=== PATIENT | female | born 1935 | race Caucasian/White ===

== ENCOUNTER 2017-01-09 12:22 | Inpatient (IN) | payer OTHER ==
[2017-01-09 13:51] LABS: MCH 32.4 pg (25.7-33.7); MEAN CELL VOLUME 98.2 fl (80-96); MEAN PLT VOLUME 9.1 fl (7.5-11.1); PLATELET COUNT 338 K/MM3 (134-434); RDW 14.1 % (11.6-15.6); WHITE BLOOD COUNT 22.7 K/mm3 (4.0-10.0)
[2017-01-09 14:10] LABS: INR 3.11 (0.82-1.09)
[2017-01-09 14:16] LABS: ALBUMIN 2.8 g/dl (3.4-5.0); ANION GAP 13 (8-16); BILIRUBIN,TOTAL 0.6 mg/dL (0.2-1.0); CALCIUM 10.5 mg/dL (8.5-10.1); CO2 23 mmol/L (21-32); CREATININE 2.2 mg/dL (0.55-1.02); GLUCOSE,RANDOM 138 mg/dL (74-106); SGOT/AST 24 U/L (15-37); SGPT/ALT 18 U/L (12-78)
[2017-01-09 14:17] LABS: ALK PHOS 75 U/L (45-117); TOT PROT 6.7 g/dl (6.4-8.2)
[2017-01-09 14:26] LABS: PLATELET ESTIMATE ADEQUATE (NORMAL)
[2017-01-09] MEDS ORDERED: LEVOFLOXACIN 750 MG IVPB 150 ML IVPB ONE ×4 (14:41→23:18)
[2017-01-09] MEDS ORDERED: METRONIDAZOLE 500 MG PREMIXED 100 ML IVPB ONE ×2 (14:41→14:49)
[2017-01-09] MEDS ORDERED: ACETAMINOPHEN 1000 MG/100 ML VIAL (NON FORMULARY) IVPB ONE (14:45)
[2017-01-09] MEDS ORDERED: SODIUM CHLORIDE 1,000 ML IV STA ×2 (14:45→15:48)
[2017-01-09] MEDS ORDERED: ACETAMINOPHEN INJECTION 100 ML IVPB ONE (14:49)
--- NOTE | 2017-01-09 15:29 | PDOC ---
History of Present Illness - General Chief Complaint: Pain, Acute Stated Complaint: PAIN Time Seen by Provider: 01/09/17 12:50 History Source: Patient Exam Limitations: No Limitations - History of Present Illness Travel History: No Initial Comments: 01/09/17 15:51 81-year-old female presents to the ED with sudden onset but gradually worsening generalized abdominal pressure and cramping associated with generalized fatigue with decreased urine output this morning and soft stool this morning. Patient denies chills, headache, dizziness, chest pain, shortness of breath, abdominal distention, rash, or lower extremity edema. patient states is followed by Dr. callaway GI specialist for history of diverticulosis Timing/Duration: reports: getting worse Quality: reports: moderate, cramping Abdominal Pain Onset Location: reports: generalized abdomen Pain Radiation: reports: no radiation Aggravating Factors: improves with: None Alleviating Factors: improves with: None Past History - Travel Traveled outside of the country in the last 30 days: No Close contact w/someone who was outside of country & ill: No - Past Medical History Allergies/Adverse Reactions: Allergies Allergy/AdvReac Type Severity Reaction Status Date / Time No Known Allergies Allergy Verified 01/09/17 12:33 Home Medications: Ambulatory Orders Atorvastatin Ca [Lipitor] 40 mg PO HS 01/09/17 Docusate Sodium [Colace -] 100 mg PO DAILY 01/09/17 Losartan Potassium [Cozaar] 50 mg PO DAILY 01/09/17 Metoprolol Succinate [Toprol Xl -] 50 mg PO DAILY 01/09/17 Oxycodone HCl/Acetaminophen [Percocet 5-325 mg Tablet] 1 tab PO Q6H 01/09/17 Risedronate Sodium [Actonel] 35 mg PO WEEKLY 01/09/17 Warfarin Sodium 3 mg PO HS 01/09/17 HTN: Yes Hypercholesterolemia: Yes Other medical history: PE - Surgical History Abdominal Surgery: Yes (HIATAL HERNIA) Cardiac Surgery: Yes (FILTER PLACEMENT) Cholecystectomy: Yes - Psycho/Social/Smoking Cessation Hx Suicidal Ideation: No Smoking History: Former smoker Have you smoked in the past 12 months: No Information on smoking cessation initiated: No Patient Lives Alone: No Abd/GI Specific PMHX - Complaint Specific PMHX Diverticulitis: No Review of Systems - Review of Systems Able to Perform ROS?: Yes Constitutional: No: Symptoms Reported HEENTM: No: Symptoms Reported Respiratory: No: Symptoms reported Cardiac (ROS): No: Symptoms Reported ABD/GI: Yes: Abdominal cramping : No: Symptoms Reported Musculoskeletal: No: Symptoms Reported Integumentary: No: Symptoms Reported Neurological: No: Symptoms reported Hematologic/Lymphatic: No: Symptoms Reported *Physical Exam - Vital Signs Last Vital Signs Temp Pulse Resp BP Pulse Ox 100.3 F H 108 H 19 138/68 92 L 01/09/17 14:05 01/09/17 12:33 01/09/17 12:33 01/09/17 12:33 01/09/17 12:33 - Physical Exam General Appearance: Yes: Nourished, Appropriately Dressed. No: Apparent Distress HEENT: positive: EOMI, JAYSON. negative: Pale Conjunctivae Neck: positive: Supple Respiratory/Chest: positive: Lungs Clear, Normal Breath Sounds. negative: Respiratory Distress, Accessory Muscle Use Cardiovascular: positive: Regular Rhythm, Tachycardia. negative: Murmur Gastrointestinal/Abdominal: positive: Decreased BS (no bowel sounds auscultated. Except for right lower quad which were diminished), Distended, Guarding, Tenderness (generalized) Musculoskeletal: negative: CVA Tenderness Extremity: positive: Normal Capillary Refill. negative: Pedal Edema Integumentary: positive: Normal Color, Warm, Moist Neurologic: positive: Normal Mood/Affect, Motor Strength 5/5 Heart Score/ECG Review - ECG Intrepretation Rhythm: Regular Rhythm (tachycardia at 104 with PVC) ED Treatment Course - LABORATORY CBC & Chemistry Diagram: 01/13/17 05:50 01/13/17 05:50 - ADDITIONAL ORDERS Additional order review: Laboratory Results 01/09/17 01/09/17 01/09/17 13:28 13:28 13:28 INR 3.11 H Sodium 143 Potassium 4.6 Chloride 107 Carbon Dioxide 23 Anion Gap 13 BUN 30 H Creatinine 2.2 H Creat Clearance w eGFR 21.37 Random Glucose 138 H Lactic Acid 5.1 H* Calcium 10.5 H Total Bilirubin 0.6 AST 24 ALT 18 Alkaline Phosphatase 75 Total Protein 6.7 Albumin 2.8 L 01/09/17 13:28 RBC 4.98 MCV 98.2 H MCHC 33.0 RDW 14.1 MPV 9.1 Neutrophils % 91.0 H Lymphocytes % 3.0 L - RADIOLOGY Radiology Studies Ordered: Category Date Time Status ABDOMEN & PELVIS CT W/O CONTR [CT] Stat CT Scan 01/09/17 13:20 Ordered CHEST X-RAY PORTABLE* [RAD] Stat Radiology 01/09/17 13:20 Completed KUB (KID UR & BLAD) [RAD] Stat Radiology 01/09/17 13:20 Completed Medical Decision Making - Critical Care Time Total Critical Care Time (minutes): 120 Critical Care Statement: The care of this patient involved high complexity decision making to prevent further life threatening deterioration of the patient 's condition and/or to evalute & treat vital organ system(s) failure or risk of failure. - Medical Decision Making 01/09/17 13:06 Patient with generalized abdominal pain along with mild generalized weakness. Patient upon arrival was found to be hypoxic at 91-92% with clear breath sounds bilateral. Patient with generalized abdominal tenderness on exam with mild distention and absent bowel sounds. Patient concerning for obstruction versus perforation. Patient ordered for rectal temp labs, bedside KUB, portable chest x -ray, and preparation for by mouth contrast initiated. 01/09/17 15:09 Laboratory Tests 01/09/17 01/09/17 01/09/17 13:28 13:28 13:28 WBC 22.7 H Hgb 16.1 H Hct 48.9 H Plt Count 338 Neutrophils % 91.0 H Band Neutrophils 6.0 INR 3.11 H Sodium Potassium Chloride Carbon Dioxide Anion Gap BUN Creatinine Random Glucose Lactic Acid Calcium AST ALT Albumin Urine Protein Urine Ketones Urine Blood Urine Urobilinogen Ur Leukocyte Esterase Urine RBC Urine WBC Blood Type O POSITIVE 01/09/17 01/09/17 01/09/17 13:28 13:28 15:13 WBC Hgb Hct Plt Count Neutrophils % Band Neutrophils INR Sodium 143 Potassium 4.6 Chloride 107 Carbon Dioxide 23 Anion Gap 13 BUN 30 H Creatinine 2.2 H Random Glucose 138 H Lactic Acid 5.1 H* Calcium 10.5 H AST 24 ALT 18 Albumin 2.8 L Urine Protein 2+ H Urine Ketones Trace H Urine Blood 1+ H Urine Urobilinogen 2.0 H Ur Leukocyte Esterase Trace Urine RBC 17 Urine WBC 19 Blood Type Chest x-ray shows emphysema changes in the lungs with no signs of pneumonia or pneumothorax. There is no interstitial edema or pleural effusions noted. Bedside KUB shows no free air and no large air-fluid levels. Retained fecal material in the rectosigmoid colon noted. Patient ordered for IV fluids, IV Tylenol for rectal temperature of 100.3 and tachycardia at 113, Levaquin and Flagyl and will go to CT shortly. second lactic and blood culture ordered 01/09/17 17:[address] shows a 9 x 8 x 5 cm cavity seen within the lower abdominal/upper pelvis centrally containing air, a small amount of fluid and internal debris. There is possible and evocation of a 1.3 x 0.3 cm air-filled track between the mesenteric cavity in the middle third of the sigmoid colon. Development of soft tissue stranding is seen surrounding the middle third of the sigmoid colon which may be consistent of acute diverticulitis. There is also a 4.1 suprarenal aortic aneurysm noted. There is a 3.1 infrarenal aortic aneurysm. Call placed to Dr. Sawyer patient's primary care physician, gis programmer, and surgeon on-call Dr. Prado. Patient placed back on monitor in room 4. Will repeat vitals. Patient awaiting repeat lactic 01/09/17 17:36 Case discussed with surgeon Dr. Prado who will be consult shortly. Patient's repeat vital stable. Patient is otherwise comfortable while resting. Family at bedside. 01/09/17 18:25 Patient was seen by Dr. Prado will bring patient to the OR shortly. Patient was ordered for 2 units of FFP secondary INR 3.1. Family at bedside. Vital signs stable. Patient consented to surgery. 01/09/17 18:51 Repeat blood pressure 119/77. Heart rate 95. O2 sat 97% with 2 L. Patient awaiting FFP. 01/13/17 12:57 *DC/Admit/Observation/Transfer Diagnosis at time of Disposition: Perforated bowel, Diverticulitis, Severe sepsis - Discharge Dispostion Condition at time of disposition: Fair Admit: Yes - Referrals
[2017-01-09 15:39] LABS: URINE APPEARANCE SLCLOUDY; URINE BILIRUBIN NEGATIVE (NEGATIVE); URINE BLOOD 1+ (NEGATIVE); URINE COLOR AMBER; URINE GLUCOSE (UA) NEGATIVE (NEGATIVE); URINE KETONE TRACE (NEGATIVE); URINE LEUK ESTERASE TRACE (NEGATIVE); URINE NITRITE NEGATIVE (NEGATIVE)
[2017-01-09 15:42] LABS: URINE PROTEIN 2+ (NEGATIVE)
[2017-01-09 15:45] LABS: GRANULAR CASTS 3 /lpf; URINE HYALINE CAST 25 /lpf; URINE MUCUS RARE; URINE RBC 17 /hpf (0-3); URINE WBC 19 /hpf (3-5)
[2017-01-09] MEDS ORDERED: LEVOFLOXACIN 500 MG IVPB 100 ML IVPB ONE (16:36)
[2017-01-09] MEDS ORDERED: ETOMIDATE 20 MG/10 ML AMPUL IVPUSH ONE (19:16)
[2017-01-09] MEDS ORDERED: ROCURONIUM BROMIDE 50 MG/5 ML VIAL ONE ×3 (19:17→22:53)
[2017-01-09] MEDS ORDERED: ePHEDrine SULFATE 50 MG/1 ML AMPULE ONE (19:18)
[2017-01-09] MEDS ORDERED: DESFLURANE GAS 240 ML BOTTLE IH ONE (19:20)
[2017-01-09] MEDS ORDERED: MIDAZOLAM HCL 2 MG/2 ML SINGLE DOSE VIAL ONE ×2 (19:21)
[2017-01-09] MEDS ORDERED: NOREPINEPHRINE BITARTRATE 4 MG/4 ML ML IV ONE (19:21)
--- NOTE | 2017-01-09 20:18 | CONSULT ---
- Consultation REQUESTING PROVIDER: Mulu Bello BUSINESS INFORMATION CONSULTANT CONSULT REQUEST: We have been asked to surgically evaluate this patient for abdominal pain. PCP:Roula Sawyer HISTORY OF PRESENT ILLNESS: CTSP for evaluation and management if an acute surgical abdomen; this 81 y/o w/f/presented w/> 6 hours of sudden onset of diffuse generalized abdominal painabdominal pain; she came to the ER for evaluation; she has a h/o a splenectomy; cholecystectomy and AAA repair PMHx: DVT/PE PSHx: As above and femur fx. Home Medications Medication Instructions Recorded Atorvastatin Ca [Lipitor] 40 mg PO HS 01/09/17 Docusate Sodium [Colace -] 100 mg PO DAILY 01/09/17 Losartan Potassium [Cozaar] 50 mg PO DAILY 01/09/17 Metoprolol Succinate [Toprol Xl -] 50 mg PO DAILY 01/09/17 Oxycodone HCl/Acetaminophen 1 tab PO Q6H 01/09/17 [Percocet 5-325 mg Tablet] Risedronate Sodium [Actonel] 35 mg PO WEEKLY 01/09/17 Warfarin Sodium 3 mg PO HS 01/09/17 Allergies Allergy/AdvReac Type Severity Reaction Status Date / Time No Known Allergies Allergy Verified 01/09/17 12:33 PHYSICAL EXAM: GENERAL: Awake, alert, and fully oriented, in acute distress. HEAD: Normal with no signs of trauma. EYES: PERRL, sclera anicteric, conjunctiva clear. NECK: Normal ROM, supple without lymphadenopathy, JVD, or masses. ABDOMEN: Soft, diffusely tender,distended, absebt bowel sounds, positive guarding and rebound, no masses. No organomegaly. No hernias; healed midline scar MUSCULOSKELETAL: Normal ROM at all joints. No bony deformities or tenderness. No CVA tenderness. UPPER EXTREMITIES: 2+ pulses, warm, well-perfused. No cyanosis. Cap refill <2 seconds. No peripheral edema. LOWER EXTREMITIES: 2+ pulses, warm, well-perfused. No calf tenderness. No peripheral edema. NEUROLOGICAL: Normal speech, gait not observed. PSYCH: Cooperative. Good eye contact. Appropriate mood and affect. SKIN: Warm, dry, normal turgor, no rashes or lesions noted. Vital Signs Temperature 97.9 F 01/09/17 19:02 Pulse Rate 94 H 01/09/17 19:02 Respiratory Rate 22 01/09/17 19:02 Blood Pressure 99/67 01/09/17 19:02 O2 Sat by Pulse Oximetry (%) 98 01/09/17 19:02 Lab Results WBC 22.7 K/mm3 (4.0-10.0) H 01/09/17 13:28 RBC 4.98 M/mm3 (3.60-5.2) 01/09/17 13:28 Hgb 16.1 GM/dL (10.7-15.3) H 01/09/17 13:28 Hct 48.9 % (32.4-45.2) H 01/09/17 13:28 MCV 98.2 fl (80-96) H 01/09/17 13:28 MCHC 33.0 g/dl (32.0-36.0) 01/09/17 13:28 RDW 14.1 % (11.6-15.6) 01/09/17 13:28 Plt Count 338 K/MM3 (134-434) 01/09/17 13:28 Sodium 143 mmol/L (136-145) 01/09/17 13:28 Potassium 4.6 mmol/L (3.5-5.1) 01/09/17 13:28 Chloride 107 mmol/L (98-107) 01/09/17 13:28 Carbon Dioxide 23 mmol/L (21-32) 01/09/17 13:28 Anion Gap 13 (8-16) 01/09/17 13:28 BUN 30 mg/dL (7-18) H 01/09/17 13:28 Creatinine 2.2 mg/dL (0.55-1.02) H 01/09/17 13:28 Random Glucose 138 mg/dL (74-106) H 01/09/17 13:28 Calcium 10.5 mg/dL (8.5-10.1) H 01/09/17 13:28 Blood Type O POSITIVE 01/09/17 13:28 Antibody Screen Positive H 01/09/17 13:28 INR 3.11 (0.82-1.09) H 01/09/17 13:28 Imaging w/u reviewed IMP: acute surgical abdomen; likely perforated diverticulitis PLAN: Ex-lap possible Hartmans procedure and AOSDN; r/b/t d/w the patient and family; they wish to proceed; they understand she will possibly have an ostomy that will most likely be permanent and that she may remain intubated in the ICU ; in addition we discussed possible stroke/DVT/CA/wound and/or intra abdominal infection and . Taqueria Prado MD FACS Visit type - Case Type Case Type: ED Admission - Emergency Emergency Visit: Yes ED Registration Date: 01/09/17 Care time: The patient presented to the Emergency Department on the above date and was hospitalized for further evaluation of their emergent condition. - New patient This patient is new to me today: Yes Date on this admission: 01/09/17 - Critical Care Critical Care patient: No
[2017-01-09] MEDS ORDERED: ALBUMIN HUMAN 5% 250 ML IV SOLUTION IVPB ONE (20:22)
--- NOTE | 2017-01-09 23:11 | OP ---
Operative Note - Note: Operative Date: 01/09/17 Pre-Operative Diagnosis: Perforated sigmoid diverticulitis with abscess Operation: Exploratory laparotomy, sigmoid resection, extensive lysis of adhesions and mobilization of splenic flexure Post-Operative Diagnosis: Same as Pre-op Surgeon: Taqueria Prado Torch Solderer: Chris Verde Anesthesiologist/WAX BALL MOLDER: Sean Alcantar Anesthesia: General Specimens Removed: sigmoid colon Estimated Blood Loss (mls): 200 Drains & Tubes with Location: JAMES RLQ Drains, Volume Out (mls): 75 (Jennings (concentrated)) Fluid Volume Replaced (mls): 2,700 (2L Crystalloid & 700 Albumin) Operative Report Dictated: Yes
--- NOTE | 2017-01-09 23:12 | SURG ---
Surgery Director Of Veterans Affairs Note Director Of Veterans Affairs: Chris Verde PA-C Date of Service: 01/09/17 Diagnosis: Perforated sigmoid diverticulitis with abscess Procedure: Exploratory laparotomy, extensive lysis of adhesions, sigmoid resection, colostomy and splenic flexure mobilization I was present for the entirety of the operative procedure. For further detail, please refer to operative report. Visit type - Case Type Case Type: ED Admission - Emergency Emergency Visit: Yes ED Registration Date: 01/09/17 Care time: The patient presented to the Emergency Department on the above date and was hospitalized for further evaluation of their emergent condition. - New patient This patient is new to me today: Yes Date on this admission: 01/09/17
--- NOTE | 2017-01-09 23:40 | CONSULT ---
Consult Consult Specialty:: Pulm/CCM FABRIC WORKER LEADER Reason for Consultation:: Post-op repair of perforated bowel - History of Present Illness History of Present Illness: 81yow with PMHx HTN, diverticulosis, DVT/PE on coumadin, splenectomy who presents to the ED with sudden onset and gradually worsening abd pain, generalized fatigue and decreased urine output. She reported having guarding and rebound tenderness. CT A/P showed e/o a perforated bowel and diverticulitis. labs notable for WBC 22.7, Hgb10, INR 3.1, lactate 5.1, BUN/creat 30/2.2. She was taken to the OR this evening for exploratory lap, lysis of adhesions, sigmoid resection, colostomy and splenic flexure mobilization. She was brought to the ICU post sugery. In the OR she was orally intubated; EBL 400cc, she received 3U FFP, 750cc 5% albumin. She required no vasopressors during the case. She was left intubated post-op re note od feculent material in NGT. In ICU she was received orally intubated , paralyzed, BP 140's/70's, HR 100, Mid line abd incision c/d, JAMES to bulb with small amt bloody fluid and colostomy with pink and patent stoma. She was kept sedated with fentanyl and versed drips. Antibiotics continued. - History Source History Provided By: Medical Record Limitations to Obtaining History: Unresponsive - Smoking History Smoking history: Former smoker Have you smoked in the past 12 months: No Home Medications - Allergies Allergies/Adverse Reactions: Allergies Allergy/AdvReac Type Severity Reaction Status Date / Time No Known Allergies Allergy Verified 01/09/17 12:33 - Home Medications Home Medications: Ambulatory Orders Atorvastatin Ca [Lipitor] 40 mg PO HS 01/09/17 Docusate Sodium [Colace -] 100 mg PO DAILY 01/09/17 Losartan Potassium [Cozaar] 50 mg PO DAILY 01/09/17 Metoprolol Succinate [Toprol Xl -] 50 mg PO DAILY 01/09/17 Oxycodone HCl/Acetaminophen [Percocet 5-325 mg Tablet] 1 tab PO Q6H 01/09/17 Risedronate Sodium [Actonel] 35 mg PO WEEKLY 01/09/17 Warfarin Sodium 3 mg PO HS 01/09/17 Family Disease History - Family Disease History Family History: Unremarkable Review of Systems Unable to obtain ROS, reason: Intubated and sedated Physical Exam Vital Signs: Vital Signs Temperature 97.9 F 01/09/17 19:02 Pulse Rate 94 H 01/09/17 19:02 Respiratory Rate 22 01/09/17 19:02 Blood Pressure 99/67 01/09/17 19:02 O2 Sat by Pulse Oximetry (%) 98 01/09/17 19:02 Constitutional: Yes: Obese, Other (Sedated) Assessment/Plan 81yow with PMHx HTN, diverticulosis, DVT/PE on coumadin, splenectomy who presented to the ED with sudden onset and gradually worsening abd pain, generalized fatigue and decreased urine output. She was found to have a perforated bowel and is now s/p exploratory lap with sigmoid resection, colostomy and splenic lexure mobilization. She is currently intubated and with a high risk for bleeding re elevated INR on coumadin. Also with some JG in setting of sepsis. Pulm: Orally intubated for surgery; poss LLL consolidation on CXR -Lung protective vent settings -Aspiration precautions -Light sedation once off paralysis for comfort -SBT daily -Pain management -Fluid management after intra-op fluid shifts. -Antibiotics as below GI/ID: Perforated bowel c/f peritonitis -Post-op incision and JAMES management -Cont antibiotics for empiric coverage -Tailor to culture results -Monitor JAMES drainage -Monitor color of stoma and output of colostomy -NGT to LWS -NPO -[id number] CV: Sepsis in setting of perf bowel -HD monitoring -Fluid bolus as needed for MAP> 60 will likely third space -Vasopressor support as needed -Monitor lactate and troponin Heme: Hx DVT/PE on coumadin -Monitor coags and CBC -Transfuse for Hgb<7 -Vit K prn for INR>1.5; FFP if bleeding -Hold anticoag for now -Consult surgery for proper time to restart -venodynes Renal: JG in setting of sepsis ,perf bowel -monitor BMP and UOP -Fluid bolus as needed -Replete electrolytes Proph venodynes/H2b Eveline Fiore,ACNP-BC
[2017-01-09] MEDS ORDERED: MIDAZOLAM 100 MG in SODIUM CHLORIDE 100 ML IVPB SCH (23:45)
[2017-01-10 00:19] LABS: ARTERIAL BLD GAS O2 SATURATION 97.8 % (90-98.9); ARTERIAL BLOOD GAS BASE EXCESS -6.5 meq/l (-2-2); ARTERIAL BLOOD GAS HCO3 21.1 meq/L (22-26)
[2017-01-10 00:20] LABS: ART PUNCT SITE ARTERIAL LINE; LPM/O2% 50%; PT. ON O2? YES
[2017-01-10 00:21] LABS: MECH. VENT. YES; TYPE OF O2 MECH VENT; VENT RATE 10; VT/PRESS 500
[2017-01-10 00:22] LABS: ARTERIAL BLOOD GAS pH 7.22 (7.35-7.45)
[2017-01-10] MEDS: LACTATED RINGERS SOLUTION 1,000 ML IV SCH (00:27)
[2017-01-10] MEDS: FENTANYL INJECTION 500 MCG in DEXTROSE 5%-WATER - 90 ML IVPB SCH ×2 (00:27→10:03)
[2017-01-10 00:47] LABS: MCH 31.8 pg (25.7-33.7); MCHC 32.1 g/dl (32.0-36.0); MEAN CELL VOLUME 99.3 fl (80-96); MEAN PLT VOLUME 9.7 fl (7.5-11.1); PLATELET COUNT 267 K/MM3 (134-434); RDW 14.3 % (11.6-15.6); WHITE BLOOD COUNT 17.1 K/mm3 (4.0-10.0)
[2017-01-10 00:56] LABS: INR 2.73 (0.82-1.09); PROTHROMBIN TIME (PATIENT) 30.7 SEC (9.98-11.88)
[2017-01-10 00:58] LABS: ACTIVATED PTT 41.7 SECONDS (26.9-34.4)
[2017-01-10 01:05] LABS: ALBUMIN 2.9 g/dl (3.4-5.0); ANION GAP 9 (8-16); BILIRUBIN,TOTAL 1.1 mg/dL (0.2-1.0); CALCIUM 8.5 mg/dL (8.5-10.1); CO2 23 mmol/L (21-32); CREATININE 1.7 mg/dL (0.55-1.02); GLUCOSE,RANDOM 122 mg/dL (74-106); SGOT/AST 21 U/L (15-37); SGPT/ALT 16 U/L (12-78)
[2017-01-10 01:06] LABS: ALK PHOS 50 U/L (45-117); TOT PROT 5.4 g/dl (6.4-8.2)
[2017-01-10] MEDS: METRONIDAZOLE 500 MG PREMIXED 100 ML IVPB SCH ×3 (01:44→17:25)
[2017-01-10 03:26] LABS: TROPONIN I 0.08 ng/ml (0.00-0.05)
[2017-01-10] MEDS ORDERED: PHYTONADIONE 10 MG/1 ML AMP ONE (04:33)
[2017-01-10] MEDS ORDERED: PHYTONADIONE 10 MG/1 ML AMP IVPB ONE (04:35)
[2017-01-10 06:42] LABS: ANION GAP 8 (8-16); CALCIUM 8.4 mg/dL (8.5-10.1); CO2 23 mmol/L (21-32); CREATININE 1.7 mg/dL (0.55-1.02); GLUCOSE,RANDOM 108 mg/dL (74-106)
[2017-01-10 06:53] LABS: MCH 32.1 pg (25.7-33.7); MCHC 32.7 g/dl (32.0-36.0); MEAN PLT VOLUME 9.9 fl (7.5-11.1); PLATELET COUNT 253 K/MM3 (134-434); RDW 14.8 % (11.6-15.6); WHITE BLOOD COUNT 15.9 K/mm3 (4.0-10.0)
[2017-01-10 07:02] LABS: INR 2.56 (0.82-1.09); PROTHROMBIN TIME (PATIENT) 28.7 SEC (9.98-11.88)
--- NOTE | 2017-01-10 09:43 | PN ---
Progress Note (short form) - Note Progress Note: PULM/CRITICAL CARE FOLLOW UP: Pt seen and examined in the ICU 24 HOUR EVENTS: -Taken to OR for ex-lap, sigmoid resection with colostomy. Remained intubated post-op -No pressors, lactate clearing, afebrile Current Medications Hydromorphone HCl (Dilaudid Injection -) 0.5 mg IVPUSH Q4H PRN PRN Reason: MODERATE PAIN Hydromorphone HCl (Dilaudid Injection -) 1 mg IVPUSH Q4H PRN PRN Reason: SEVERE PAIN Metronidazole (Flagyl 500mg Premixed Ivpb -) 100 mls @ 100 mls/hr IVPB Q8H-IV DAVID Last Admin: 01/10/17 01:44 Dose: 100 mls/hr Levofloxacin (Levaquin 750 Mg Premixed Ivpb -) 150 mls @ 100 mls/hr IVPB DAILY ONE Stop: 01/10/17 00:47 Famotidine/Sodium Chloride (Pepcid 20 Mg Premixed Ivpb -) 50 mls @ 100 mls/hr IVPB BID DAVID Fentanyl 500 mcg/ Dextrose 100 mls @ 10 mls/hr IVPB TITR DAVID PRN Reason: 50 MCG/HR Stop: 01/10/17 23:44 Last Admin: 01/10/17 00:27 Dose: 10 mls/hr Lactated Ringer's (Lactated Ringers Solution) 1,000 mls @ 100 mls/hr IV ASDIR DAVID Last Admin: 01/10/17 00:27 Dose: 100 mls/hr Vital Signs Temp 98.6 F 01/10/17 02:00 Pulse 97 H 01/10/17 04:05 Resp 16 01/10/17 07:31 BP 113/65 01/10/17 04:05 Pulse Ox 100 01/10/17 01:00 Intake & Output 01/09/17 01/10/17 01/10/17 18:59 06:59 18:59 Intake Total 1000 3317 Output Total 3990 Balance 1000 -673 Weight 90.718 kg 99.9 kg Intake: IV 1000 2930 Normal Saline - 1,000 ml 700 @ 1000 mls/hr IV ASDIR STA Rx#:[id number] Versed - 100 mg In Normal 30 Saline - 100 ml @ 2 MG/ HR 2 mls/hr IVPB TITR DAVID Rx#:[id number] IVPB 100 Blood Product 287 Output: Drainage 165 Abdomen 165 Urine 425 Jennings 200 Estimated Blood Loss 400 Other 3000 Other: Voiding Method Indwelling Catheter Bowel Movement No Height 5 ft 7 in 5 ft 7 in Body Mass Index (BMI) 31.3 34.4 Weight Measurement Method Built in [facility] Weight Measurement Method Est/Stated by Patient EXAM: neuro: sedated, grimaces to pain, CONTRERAS HEENT: PERRL lungs: diminished bases, clear apices heart: irregular rhythm abd: soft, appropriately tender, midline incision intact, minimal serous drainage, midline JAMES with sero-sang drainage, ostomy pink, non-productive yet ext: LE cool, 1+ edema skin: warm, dry Assessment/Plan 81yow with PMHx HTN, diverticulosis, DVT/PE on coumadin, splenectomy who presented to the ED with sudden onset and gradually worsening abd pain, generalized fatigue and decreased urine output. She was found to have a perforated bowel and is now s/p exploratory lap with sigmoid resection, colostomy and splenic flexure mobilization. She is currently intubated and with a high risk for bleeding re elevated INR on coumadin. Also with some JG in setting of sepsis. Perforated bowel Peritonitis Sepsis s/p ex-lap with sigmoid resection, colostomy Post-op respiratory failure Resolving JG Lactic acidosis AF h/o DVT/PE -Lighten sedation, PSV trial, check ABG and extubate if all ok -Pain management -NPO and NGT to LWS -Surgery follow up -Abx per ID -Monitor for return of bowel function -Gentle hydration -Rate control -H2B for GI PPx -Start Heparin gtt when INR <2.0 if ok with surgery Monitor in ICU Critically Ill - CCT 45min Axel Haney Pulm/Critical Care TESTS SUPERINTENDENT [id number]
[2017-01-10] MEDS: FAMOTIDINE 20 MG/50 ML IVPB 50 ML IVPB SCH ×2 (10:04→22:51)
--- NOTE | 2017-01-10 10:28 | PN ---
Progress Note (short form) - Note Progress Note: POD #1 - s/p exploratory laparotomy/ Nathanael's under general anesthesia late last night. VSS. Pt. remains intubated and sedated. No apparent anesthetic complications noted. Continue current intensive care.
[2017-01-10 11:02] LABS: ART PUNCT SITE ARTERIAL LINE; ARTERIAL BLD GAS O2 SATURATION 98.8 % (90-98.9); ARTERIAL BLOOD GAS BASE EXCESS -1.6 meq/l (-2-2); ARTERIAL BLOOD GAS HCO3 21.6 meq/L (22-26); ARTERIAL BLOOD GAS pH 7.43 (7.35-7.45)
[2017-01-10 11:03] LABS: LPM/O2% 50%; MECH. VENT. ESPRIT; PT. ON O2? YES; TYPE OF O2 OT
--- NOTE | 2017-01-10 11:12 | PN ---
Progress Note (short form) - Note Progress Note: Attending Surgeon POD #1 Intubated/sedated on vent in ICU h/e being weaned; not on pressors VSS AF abdomen-ostomy viable; incision open; c/d/i; JAMES serosanguinous; o/w negative labs reviewed; lactate and WBC down UO 200 cc's post op cultures pending IMP: stable s/p ex-lap; Hartmans procedure for perforated sigmoid diverticulitis w/abscess formation. PLAN: increase IVF; ID consult for antibiotic coverage; continue present tx. Taqueria Prado MD FACS
--- NOTE | 2017-01-10 11:28 | PN ---
Progress Note, Physician Chief Complaint: On respirator History of Present Illness: S/P exploratory Lap for perforated colon Colostomy and Hartmans procedure done - Current Medication List Current Medications: Active Medications Hydromorphone HCl (Dilaudid Injection -) 0.5 mg IVPUSH Q4H PRN PRN Reason: MODERATE PAIN Hydromorphone HCl (Dilaudid Injection -) 1 mg IVPUSH Q4H PRN PRN Reason: SEVERE PAIN Metronidazole (Flagyl 500mg Premixed Ivpb -) 100 mls @ 100 mls/hr IVPB Q8H-IV DAVID Last Admin: 01/10/17 10:07 Dose: 100 mls/hr Levofloxacin (Levaquin 750 Mg Premixed Ivpb -) 150 mls @ 100 mls/hr IVPB DAILY ONE Stop: 01/10/17 00:47 Famotidine/Sodium Chloride (Pepcid 20 Mg Premixed Ivpb -) 50 mls @ 100 mls/hr IVPB BID DAVID Last Admin: 01/10/17 10:04 Dose: 100 mls/hr Fentanyl 500 mcg/ Dextrose 100 mls @ 10 mls/hr IVPB TITR DAVID PRN Reason: 50 MCG/HR Stop: 01/10/17 23:44 Last Admin: 01/10/17 10:03 Dose: 10 mls/hr Lactated Ringer's (Lactated Ringers Solution) 1,000 mls @ 100 mls/hr IV ASDIR DAVID Last Admin: 01/10/17 00:27 Dose: 100 mls/hr - Objective Vital Signs: Vital Signs Temperature 98.6 F 01/10/17 02:00 Pulse Rate 104 H 01/10/17 10:34 Respiratory Rate 23 01/10/17 10:34 Blood Pressure 113/65 01/10/17 04:05 O2 Sat by Pulse Oximetry (%) 96 01/10/17 10:34 Eyes: Yes: WNL HENT: Yes: WNL Neck: Yes: Supple Cardiovascular: Yes: Regular Rate and Rhythm Respiratory: Yes: Mechanically Ventilated Gastrointestinal: Yes: Hypoactive Bowel Sounds ...Rectal Exam: Yes: Deferred Genitourinary: Yes: Jennings Present Labs: CBC, BMP 01/10/17 05:20 01/10/17 05:20 INR, PTT INR 2.56 (0.82-1.09) H 01/10/17 05:20 Assessment/Plan Cardiology consult Dr Bhat
[2017-01-10] MEDS ORDERED: METOPROLOL TARTRATE 5 MG/5 ML VIAL IVPB PRN (15:01)
--- NOTE | 2017-01-10 15:57 | CONS ---
DATE OF CONSULTATION: 01/10/2017 REQUESTING PHYSICIAN: Roula Sawyer MD LOCATION: CCU. HISTORY: An 81-year-old white female who was brought to the hospital with acute abdominal pain and underwent abdominal surgery and a colostomy for ruptured diverticulitis. History was obtained from her daughter. She has a known case of hypertension, hypertensive cardiovascular disease, hypercholesterolemia, history of pulmonary thromboembolism approximately 20 years ago following abdominal surgery, history of abdominal aortic aneurysm status post resection back in the . According to her daughter, the patient last developed sudden onset of chills, clamminess after she had a bowel movement. There is no known history of chest pain or discomfort. There is history of exertional dyspnea climbing a flight of stairs. No paroxysmal or nocturnal dyspnea or orthopnea was reported. No history of palpitations, lightheadedness, dizziness, presyncope, or syncope. She has intermittent cough with expectoration. There is no history of hemoptysis. There is no history of diabetes mellitus. No known history of heart murmur or rheumatic fever. PAST HISTORY: 1. Hypercholesterolemia. 2. Hypertension. 3. Status post pulmonary thromboembolism. 4. History of fracture of the right femur. 5. History of cataracts. 6. History of chronic pain involving the right lower extremity. 7. Abdominal aortic aneurysm. PAST SURGICAL HISTORY: 1. Status post tonsillectomy. 2. Status post bilateral cataract extraction. 3. Status post splenectomy for hemolytic anemia. 4. Status post cholecystectomy. 5. 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 6. Status post surgery for hiatus hernia. 7. Status post repair of an abdominal aortic aneurysm in the . 8. Status post right femur fracture surgery. 9. IVC filter. SOCIAL HISTORY: She is . Has a son and a daughter. Her son has diabetes and apparently heart disease. She is a smoker since the age of 20. Used to smoke 1 pack of cigarettes a day. Currently smokes 1-2 cigarettes. Has an occasional drink. Currently has 2 cups of coffee. FAMILY HISTORY: Her father in his 50s of a myocardial infarction. Mother in her 70s related to ovarian cancer. She has no siblings. ALLERGIES: None reported. MEDICATIONS: Prior to admission: 1. Losartan 50 mg p.o. daily. 2. Metoprolol succinate 50 mg p.o. daily. 3. Atorvastatin 40 mg p.o. daily. 4. Warfarin 3 mg p.o. 5. Oxycodone 5/325 mg 1 tablet q.6 hours p.r.n. 6. Actonel 35 mg p.o. once a week. Current medications: 1. Levaquin 750 mg IV piggyback once daily. 2. Flagyl 500 mg IV q.8 hours. 3. Famotidine 20 mg IV b.i.d. 4. . 5. Dilaudid 0.5 mg IV q.4 hours p.r.n. and 1 mg IV push q.4 hours p.r.n. for severe pain. The patient had received norepinephrine, ephedrine in the emergency room, which has been discontinued. REVIEW OF SYSTEMS: Constitutional: History of chills, clamminess, and according to the daughter, there has been some unintentional weight loss. HEENT: No history of headaches, diplopia, or blurred vision. No history of epistaxis, hoarseness, tinnitus, or deafness reported. Cardiovascular: See history of present illness. History of sinus tachycardia. Respiratory: History of intermittent cough with expectoration. No history of hemoptysis or tuberculosis. Gastrointestinal: See history of present illness. Central Nervous System: No history of seizures, syncope, focal weakness. No history of dizziness. Musculoskeletal: History of chronic pain involving the right lower extremity. No history of myalgias. Endocrine: No history of polyuria or polydipsia. No history of intolerance to cold or warm weather. Genitourinary: No history of dysuria, frequency, or hematuria reported. PHYSICAL EXAMINATION: General: An 81-year-old female who was recently extubated who drowsy but arousable. There is slight pallor. No cyanosis, clubbing, or jaundice. Vital Signs: Blood pressure 115/82 mmHg, pulse 104 beats per minute and regular, temperature 99 degrees Fahrenheit, respirations 27 following extubation and currently 20 per minute. Neck: Supple. No jugular venous distention. Hepatojugular reflux is negative. Carotids are 2+. Upstrokes are normal. No bruits are appreciated, and no thyromegaly is felt. Heart: PMI is in the 5th intercostal space. Heart sounds are distant and obscured by breath sounds. No murmur or gallops are appreciated. Lungs: Coarse breath sounds bilaterally. Decreased at both bases. Chest: Normal AP diameter. Expansion grossly appears to be normal. Abdomen: Distended. There is diffuse tenderness. There is a colostomy and a midline surgical wound. Bowel sounds are absent. Extremities: No calf tenderness or dependent edema. Both feet are warm. Dorsalis pedis pulses and posterior tibial pulses are weak. LABORATORY DATA: CBC: WBC count 728, was 22,700 at 5:20 a.m., on January 10 was 15,900. Hemoglobin on January 10 was 11.6 g. Platelet count 253,000. Differential on January 09, 2017 neutrophils 91%, lymphocytes 3%, bands 6%. INR 2.56, on admission was 3.11. Basic metabolic panel January 10: Sodium 142, potassium 4.7, chloride 101, CO2 is 23 mmol/L. BUN 33, creatinine 1.7 mg/dL. Random glucose 108 mg/dL. Lactic acid on admission 5.1 and currently 2.6. CK 153. Troponin is elevated 0.08. X-ray chest on January 09, 2017. Impression: Emphysematous changes in the lungs with no sign of pneumonia or pneumothorax. No interstitial edema or pleural effusion. Abdominal CT results January 09. Impression: In comparison to previous CT study of January 31, 2016, interval development of 9-cm x 8-cm x 5-cm cavity seen within the mesentery of the lower abdomen/upper pelvis centrally. This finding may be on the basis of an abscess versus contained perforation. There is a possible small short fistulous tract extending to the mid sigmoid colon. Development of soft tissue stranding is seen within the lower pelvis consistent with edema. Extensive sigmoid diverticulosis is, again, noted. The remainder of the abdomen and pelvis demonstrates no obvious interval change. There is partial imaging of wedge-shaped focal opacity in the right middle lobe medially consistent with atelectasis and/or infiltrate. Additional evaluation utilizing a dedicated chest CT is suggested. ECG January 09, 2017. Sinus tachycardia with intra-atrial conduction abnormality, occasional unifocal single ventricular premature beats, left bundle branch block pattern, ST and T abnormalities. No previous ECGs available for comparison. IMPRESSION: 1. Sinus tachycardia. Etiology: A. Secondary to sepsis. B. Recent surgery. C. Hypovolemia. 2. Acute abdomen secondary to ruptured diverticulitis. 3. Sepsis. 4. Evaluated troponin. Etiology: A. Acute coronary syndrome needs to be excluded. B. Related to renal insufficiency. C. Sepsis. 5. Renal insufficiency. 6. History of hypertension, currently normotensive. 7. Ventricular premature beats. 8. Interventricular conduction delay. 9. History of pulmonary thromboembolism. 10. Suprarenal 4.1-cm aortic aneurysm (as noted in the CT report of the abdomen). 11. History of hemolytic anemia. 12. Status post splenectomy. RECOMMENDATIONS: 1. Serial EKGs and enzymes. 2. Would suggest addition of IV beta-blockers until the patient is able to take it orally. 3. Follow up CBC and basic metabolic profile. 4. Follow up x-ray chest as there was mention atelectasis involving the right middle lobe. 5. Follow up arterial blood gases. PROGNOSIS: Critical. TIME SPENT: One hour and 30 minutes. Tennille [id number]
[2017-01-10] MEDS ORDERED: METOPROLOL TARTRATE 5 MG/5 ML VIAL IVPB SCH (16:00)
[2017-01-10] MEDS: PIPERACILLIN/TAZOB 3.375 GM/50 ML PRE-DOCKED IVPB SCH ×2 (16:02→22:51)
[2017-01-10] MEDS: HYDROmorphone HCL CARPU-JECT 1 MG/1 ML DISP.SYRIN IVPUSH PRN ×2 (16:03→23:37)
--- NOTE | 2017-01-10 16:06 | HP ---
DATE OF ADMISSION: 01/09/2017 HISTORY OF PRESENT ILLNESS: This is an 81-year-old female who has atrial fibrillation, osteoarthritis, homebound for last many years. She came to the emergency room with complaints of abdominal pain. The patient was diagnosed with perforated viscous and was scheduled for surgery by Dr. Prado. Twenty years ago, the patient was admitted to [facility] ICU with septic shock and pulmonary embolism. Today, she is awake, alert and oriented, not in severe distress. She has abdominal pain. PHYSICAL EXAMINATION: VITALS: Blood pressure was 120/____ on admission. Currently, it is 100/67. Pulse is 94, temperature 97, respirations 20, O2 saturation is 98%. HEENT: Unremarkable. NECK: Supple. No JVD. LUNGS: Clear. HEART: S1, S2 normal. No S3, S4. ABDOMEN: Tenderness is present throughout. Minimal rebound tenderness is also present. EXTREMITIES: Legs without edema. NEUROLOGIC: Examination grossly normal. LABS: WBC 22, hemoglobin 16, platelets 338. Chemistries: Sodium 143, potassium 4.6, chloride 106, CO2 of 23, BUN 30, creatinine 2.2. Lactic acid is +3.8. Albumin is 2.8. INR is 3.1. STUDIES: On x-ray of the abdomen, no free air is noted. A chest x-ray is negative. PLAN: The case was discussed with Dr. Prado. He is going to take the patient to the OR. IV fresh frozen plasma. The patient is . We will follow. Tennille [id number]
[2017-01-10 17:19] LABS: TROPONIN I 1.49 ng/ml (0.00-0.05)
[2017-01-10] MEDS ORDERED: ALBUTEROL SO4 2.5/IPRATROPIUM 0.5 INH SOL 3 ML VIAL.NEB. NEB STA (18:25)
[2017-01-10] MEDS: METOPROLOL TARTRATE 5 MG/5 ML VIAL IVPB SCH (18:42)
[2017-01-10 21:01] LABS: TROPONIN I 1.65 ng/ml (0.00-0.05)
[2017-01-10] MEDS ORDERED: ALBUTEROL SO4 2.5/IPRATROPIUM 0.5 INH SOL 3 ML VIAL.NEB. NEB ONE (22:53)
[2017-01-11] MEDS: ALBUTEROL SO4 2.5/IPRATROPIUM 0.5 INH SOL 3 ML VIAL.NEB. NEB SCH ×4 (00:07→17:46)
[2017-01-11] MEDS: LACTATED RINGERS SOLUTION 1,000 ML IV SCH ×3 (01:48→17:40)
[2017-01-11] MEDS: METRONIDAZOLE 500 MG PREMIXED 100 ML IVPB SCH ×3 (01:48→17:40)
[2017-01-11] MEDS: METOPROLOL TARTRATE 5 MG/5 ML VIAL IVPB SCH ×3 (01:48→17:40)
[2017-01-11] MEDS: PIPERACILLIN/TAZOB 3.375 GM/50 ML PRE-DOCKED IVPB SCH ×4 (02:04→20:43)
[2017-01-11] MEDS: HYDROmorphone HCL CARPU-JECT 1 MG/1 ML DISP.SYRIN IVPUSH PRN ×3 (04:36→19:39)
[2017-01-11 06:16] LABS: MCH 31.9 pg (25.7-33.7); MCHC 32.5 g/dl (32.0-36.0); MEAN CELL VOLUME 98.2 fl (80-96); MEAN PLT VOLUME 9.8 fl (7.5-11.1); PLATELET COUNT 190 K/MM3 (134-434); RDW 14.7 % (11.6-15.6); WHITE BLOOD COUNT 17.2 K/mm3 (4.0-10.0)
[2017-01-11 06:47] LABS: INR 1.19 (0.82-1.09); PROTHROMBIN TIME (PATIENT) 13.1 SEC (9.98-11.88)
[2017-01-11 06:48] LABS: ALBUMIN 2.2 g/dl (3.4-5.0); ANION GAP 10 (8-16); BILIRUBIN,TOTAL 0.8 mg/dL (0.2-1.0); CALCIUM 7.9 mg/dL (8.5-10.1); CO2 23 mmol/L (21-32); CREATININE 2.2 mg/dL (0.55-1.02); GLUCOSE,RANDOM 117 mg/dL (74-106); SGOT/AST 36 U/L (15-37); SGPT/ALT 19 U/L (12-78); TOT PROT 4.9 g/dl (6.4-8.2)
[2017-01-11 07:02] LABS: ALK PHOS 55 U/L (45-117); CPK 205 IU/L (26-192)
[2017-01-11 07:27] LABS: TROPONIN I 1.49 ng/ml (0.00-0.05)
[2017-01-11 08:30] LABS: PLATELET ESTIMATE ADEQUATE (NORMAL)
[2017-01-11] MEDS: FAMOTIDINE 20 MG/50 ML IVPB 50 ML IVPB SCH ×2 (09:39→21:25)
--- NOTE | 2017-01-11 11:50 | PN ---
Progress Note, Physician Chief Complaint: Feels better History of Present Illness: S/P colostomy for ruptured colon Dr Gil cardiology consult appreciated Case discussed with Dr Baker - Current Medication List Current Medications: Active Medications Albuterol/Ipratropium (Duoneb -) 1 amp NEB QIDR DAVID Last Admin: 01/11/17 11:13 Dose: 1 amp Hydromorphone HCl (Dilaudid Injection -) 0.5 mg IVPUSH Q4H PRN PRN Reason: MODERATE PAIN Hydromorphone HCl (Dilaudid Injection -) 1 mg IVPUSH Q4H PRN PRN Reason: SEVERE PAIN Last Admin: 01/11/17 04:36 Dose: 1 mg Metronidazole (Flagyl 500mg Premixed Ivpb -) 100 mls @ 100 mls/hr IVPB Q8H-IV DAVID Last Admin: 01/11/17 09:39 Dose: 100 mls/hr Famotidine/Sodium Chloride (Pepcid 20 Mg Premixed Ivpb -) 50 mls @ 100 mls/hr IVPB BID DAVID Last Admin: 01/11/17 09:39 Dose: 100 mls/hr Lactated Ringer's (Lactated Ringers Solution) 1,000 mls @ 100 mls/hr IV ASDIR DAVID Last Admin: 01/11/17 10:36 Dose: 100 mls/hr Metoprolol Tartrate (Lopressor Injection -) 2.5 mg IVPB Q8H-IV DAVID Last Admin: 01/11/17 09:36 Dose: 2.5 mg Piperacillin Sod/Tazobactam Sod (Zosyn 3.375gm Ivpb (Pre-Docked)) 3.375 gm IVPB Q6H-IV DAVID Last Admin: 01/11/17 09:39 Dose: 3.375 gm - Objective Vital Signs: Vital Signs Temperature 100 F H 01/11/17 06:00 Pulse Rate 101 H 01/11/17 11:12 Respiratory Rate 20 01/11/17 09:00 Blood Pressure 113/44 01/11/17 09:36 O2 Sat by Pulse Oximetry (%) 96 01/11/17 11:12 Constitutional: Yes: Calm, Pallor HENT: Yes: WNL Neck: Yes: WNL Cardiovascular: Yes: Regular Rate and Rhythm Respiratory: Yes: On Venti-Mask Gastrointestinal: Yes: Hypoactive Bowel Sounds Genitourinary: Yes: Jennings Present Edema: No Neurological: Yes: Alert Labs: CBC, BMP 01/11/17 05:20 01/11/17 05:20 INR, PTT INR 1.19 (0.82-1.09) H D 01/11/17 05:20 Assessment/Plan Continue same trt
--- NOTE | 2017-01-11 11:51 | PN ---
Progress Note (short form) - Note Progress Note: Attending Surgeon POD #2 awake/alert extubated in ICU VSS Af abdomen-soft; wound clean; JAMES serosanguinous labs reviewed; i/o reviewed IMP: s/p Hartmans for perforated sigmoid diverticulitis w/ abscess PLAN: IVF/IVABS/pulmonary toilet/wound care/await return of GI function Taqueria Prado MD FACS
--- NOTE | 2017-01-11 12:17 | PN ---
Progress Note (short form) - Note Progress Note: Progress Note: PULM/CRITICAL CARE FOLLOW UP: Pt seen and examined in the ICU 24 HOUR EVENTS: -extubated, off pressors, well appearing this morning -bowels still quiet Vital Signs Temp 100.2 F H 01/11/17 10:00 Pulse 105 H 01/11/17 12:05 Resp 22 01/11/17 11:59 BP 122/53 01/11/17 11:59 Pulse Ox 50 L 01/11/17 12:05 Intake & Output 01/10/17 01/11/17 01/11/17 23:59 11:59 23:59 Intake Total 1515 1400 Output Total 935 525 Balance 580 875 Weight 100.8 kg Intake: IV 1215 1200 Versed - 100 mg In Normal 15 Saline - 100 ml @ 2 MG/ HR 2 mls/hr IVPB TITR DAVID Rx#:[id number] Lactated Ringers Solution 1200 1200 1,000 ml @ 100 mls/hr IV ASDIR DAVID Rx#: [id number] IVPB 300 200 Output: Gastric Drainage 400 300 Drainage 135 25 Abdomen 135 25 Urine 400 200 Jennings 400 200 Other: Voiding Method Indwelling Catheter Indwelling Catheter Bowel Movement Yes Weight Measurement Method Built in [facility] Current Medications Hydromorphone HCl (Dilaudid Injection -) 0.5 mg IVPUSH Q4H PRN PRN Reason: MODERATE PAIN Hydromorphone HCl (Dilaudid Injection -) 1 mg IVPUSH Q4H PRN PRN Reason: SEVERE PAIN Metronidazole (Flagyl 500mg Premixed Ivpb -) 100 mls @ 100 mls/hr IVPB Q8H-IV DAVID Last Admin: 01/10/17 01:44 Dose: 100 mls/hr Levofloxacin (Levaquin 750 Mg Premixed Ivpb -) 150 mls @ 100 mls/hr IVPB DAILY ONE Stop: 01/10/17 00:47 Famotidine/Sodium Chloride (Pepcid 20 Mg Premixed Ivpb -) 50 mls @ 100 mls/hr IVPB BID DAVID Fentanyl 500 mcg/ Dextrose 100 mls @ 10 mls/hr IVPB TITR DAVID PRN Reason: 50 MCG/HR Stop: 01/10/17 23:44 Last Admin: 01/10/17 00:27 Dose: 10 mls/hr Lactated Ringer's (Lactated Ringers Solution) 1,000 mls @ 100 mls/hr IV ASDIR DAVID Last Admin: 01/10/17 00:27 Dose: 100 mls/hr EXAM: neuro: awake alert, no complaints HEENT: PERRL lungs: diminished bases, clear apices heart: irregular rhythm abd: soft, appropriately tender, midline incision intact, minimal serous drainage, midline JAMES with minimal sero-sang drainage, ostomy pink, non- productive yet ext: LE cool, 1+ edema skin: warm, dry CBC, BMP 01/11/17 05:20 01/11/17 05:20 Assessment/Plan 81yow with PMHx HTN, diverticulosis, DVT/PE on coumadin, splenectomy who presented to the ED with sudden onset and gradually worsening abd pain, generalized fatigue and decreased urine output. She was found to have a perforated bowel and is now s/p exploratory lap with sigmoid resection, colostomy and splenic flexure mobilization. She is currently intubated and with a high risk for bleeding re elevated INR on coumadin. Also with some JG in setting of sepsis. Perforated bowel Peritonitis Sepsis s/p ex-lap with sigmoid resection, colostomy Post-op respiratory failure Resolving JG Lactic acidosis AF h/o DVT/PE -Pain management -NPO and NGT, start oral/ng nutrtion as per surgery -Abx per ID -Monitor for return of bowel function, monitor JAMES drain -Gentle hydration -Rate control -H2B for GI PPx -Start Heparin gtt when INR <2.0 if ok with surgery -ok for med surg Cesar SY
--- NOTE | 2017-01-11 12:52 | CONSULT ---
Consult Consult Specialty:: infectious diseases Referred by:: Reason for Consultation:: perforated diverticulitis - History of Present Illness History of Present Illness: 81yow with PMHx HTN, diverticulosis, DVT/PE on coumadin, splenectomy admitted with a diagnosis of perforated diverticulitis ,who was taken to the operating room and operated on. poat op patient was transferred to icu and was intubated patient was extubated yesterday patient received levaquin currently patient is on face mask,awake and alert but confused and not able to give any history patient according to the nursing staff making less urine also of note is that her wbc has been increasing - History Source History Provided By: Medical Record Limitations to Obtaining History: Clinical Condition - Alcohol/Substance Use Hx Alcohol Use: No - Smoking History Smoking history: Former smoker Have you smoked in the past 12 months: No Home Medications - Allergies Allergies/Adverse Reactions: Allergies Allergy/AdvReac Type Severity Reaction Status Date / Time No Known Allergies Allergy Verified 01/09/17 12:33 - Home Medications Home Medications: Ambulatory Orders Atorvastatin Ca [Lipitor] 40 mg PO HS 01/09/17 Docusate Sodium [Colace -] 100 mg PO DAILY 01/09/17 Losartan Potassium [Cozaar] 50 mg PO DAILY 01/09/17 Metoprolol Succinate [Toprol Xl -] 50 mg PO DAILY 01/09/17 Oxycodone HCl/Acetaminophen [Percocet 5-325 mg Tablet] 1 tab PO Q6H 01/09/17 Risedronate Sodium [Actonel] 35 mg PO WEEKLY 01/09/17 Warfarin Sodium 3 mg PO HS 01/09/17 Review of Systems Unable to obtain ROS, reason: unable to obtain Physical Exam Vital Signs: Vital Signs Temperature 100.2 F H 01/11/17 10:00 Pulse Rate 105 H 01/11/17 12:05 Respiratory Rate 22 01/11/17 11:59 Blood Pressure 122/53 01/11/17 11:59 O2 Sat by Pulse Oximetry (%) 50 L 01/11/17 12:05 Constitutional: Yes: Mild Distress, Other Eyes: Yes: Conjunctiva Clear Neck: Yes: Supple Cardiovascular: Yes: S1, S2 Respiratory: Yes: On Venti-Mask, Poor Air Entry, Rhonchi Gastrointestinal: Yes: Soft, Other (absent bowel sounds osteomy present wound open anamaria drain present) Renal/: Yes: Jennings Present Musculoskeletal: Yes: WNL Extremities: Yes: WNL Wound/Incision: Yes: Dressing Dry and Intact Neurological: Yes: Confusion, Other Psychiatric: Yes: Alert, Other Labs: CBC, BMP 01/11/17 05:20 01/11/17 05:20 Imaging - Results Chest X-ray: Report Reviewed, Image Reviewed Cat Scan: Report Reviewed, Image Reviewed Assessment/Plan 81 y/o old with multiple medical problems with perforated bowel post op Perforated bowel Peritonitis Sepsis s/p ex-lap with sigmoid resection, colostomy Resolving JG Lactic acidosis AF h/o DVT/PE plan continue iv abx close watch on the wbc will add antifungal hydration close monitoring as per icu cc time 40 min
[2017-01-11] MEDS: FLUCONAZOLE 200 MG/D5W 100 ML IVPB SCH (14:09)
--- NOTE | 2017-01-11 14:58 | PN ---
Progress Note (short form) - Note Progress Note: S: 81 year old female admitted with an acute abdomen, ruptured diverticulitis, sepsis, underwent surgery, known case of hypertension, s/p PTE, s/p abdominal aortic aneurysm dissection, hypercholesterolemia. Post operatively patient continues to have sinus tachycardia and persistent elevation of troponin levels. Poor urinary output. Active Medications Generic Name Dose Route Start Last Admin Trade Name Freq PRN Reason Stop Dose Admin Albuterol/Ipratropium 1 amp 01/11/17 00:00 01/11/17 11:13 Duoneb - NEB 1 amp QIDR DAVID Administration Hydromorphone HCl 0.5 mg 01/10/17 09:27 01/11/17 14:08 Dilaudid Injection - IVPUSH 0.5 mg Q4H PRN Administration MODERATE PAIN Hydromorphone HCl 1 mg 01/10/17 09:28 01/11/17 04:36 Dilaudid Injection - IVPUSH 1 mg Q4H PRN Administration SEVERE PAIN Metronidazole 100 mls @ 100 mls/hr 01/10/17 02:00 01/11/17 09:39 Flagyl 500mg Premixed Ivpb - IVPB 100 mls/hr Q8H-IV DAVID Administration Famotidine/Sodium Chloride 50 mls @ 100 mls/hr 01/10/17 10:00 01/11/17 09:39 Pepcid 20 Mg Premixed Ivpb - IVPB 100 mls/hr BID DAVID Administration Lactated Ringer's 1,000 mls @ 100 mls/hr 01/09/17 23:45 01/11/17 10:36 Lactated Ringers Solution IV 100 mls/hr ASDIR DAVID Administration Fluconazole 100 mls @ 100 mls/hr 01/11/17 13:00 01/11/17 14:09 Diflucan 200 Mg/D5w Premixed Ivpb - IVPB 100 mls/hr DAILY DAVID Administration Metoprolol Tartrate 2.5 mg 01/10/17 18:00 01/11/17 09:36 Lopressor Injection - IVPB 2.5 mg Q8H-IV DAVID Administration Piperacillin Sod/Tazobactam Sod 3.375 gm 01/10/17 15:45 01/11/17 14:09 Zosyn 3.375gm Ivpb (Pre-Docked) IVPB 3.375 gm Q6H-IV DAVID Administration O: 81 year old female is awake and follows basic commands, has persistent sinus tachycardia. Last Vital Signs Temp Pulse Resp BP Pulse Ox 100.0 F H 109 H 20 125/88 50 L 01/11/17 14:00 01/11/17 14:00 01/11/17 14:00 01/11/17 14:00 01/11/17 12:05 NECK: Supple, no JVD, negative HJR, carotids were equal and upstrokes were normal, no thyromegaly appreciated. HEART: PMI was in the 5th intercostal space, no heaves or thrills, heart sounds are distant. No murmurs or gallops were appreciated. LUNGS: Clear on auscultation bilaterally. ABDOMEN: Bandaged, generalized tenderness on palpation. Cholostomy. EXTREMITIES: No calf tenderness or dependent edema. CBC, BMP 01/11/17 05:20 01/11/17 05:20 Laboratory Results - last 24 hr 01/09/17 01/10/17 01/10/17 13:28 16:15 20:10 WBC RBC Hgb Hct MCV MCH MCHC RDW Plt Count MPV Neutrophils % Lymphocytes % Differential Comment Platelet Estimate INR Sodium Potassium Chloride Carbon Dioxide Anion Gap BUN Creatinine Creat Clearance w eGFR Random Glucose Calcium Total Bilirubin AST ALT Alkaline Phosphatase Creatine Kinase 191 187 Creatine Kinase Index 2.7 2.3 CK-MB (CK-2) 5.285 H 4.380 H Troponin I 1.49 H* 1.65 H* Total Protein Albumin Blood Type O POSITIVE Antibody Screen Positive H Prewarmed Antibody Srcn Negative Antibody Identification COLD AUTOIMMUNE HEMO ANEMIA Direct Antiglob Test Positive H 01/11/17 01/11/17 01/11/17 05:20 05:20 05:20 WBC 17.2 H RBC 3.50 L Hgb 11.2 Hct 34.4 MCV 98.2 H MCH 31.9 MCHC 32.5 RDW 14.7 Plt Count 190 D MPV 9.8 Neutrophils % 94.0 H Lymphocytes % 6.0 L D Differential Comment Manual diff done Platelet Estimate Adequate INR 1.19 H D Sodium 144 Potassium 4.5 Chloride 111 H Carbon Dioxide 23 Anion Gap 10 BUN 41 H D Creatinine 2.2 H D Creat Clearance w eGFR 21.37 Random Glucose 117 H Calcium 7.9 L Total Bilirubin 0.8 D AST 36 D ALT 19 Alkaline Phosphatase 55 Creatine Kinase 205 H Creatine Kinase Index 1.3 CK-MB (CK-2) 2.718 Troponin I 1.49 H* Total Protein 4.9 L Albumin 2.2 L D Blood Type Antibody Screen Prewarmed Antibody Srcn Antibody Identification Direct Antiglob Test Intake & Output 01/08/17 01/09/17 01/10/17 01/11/17 23:59 23:59 23:59 23:59 Intake Total 3487 2345 2450 Output Total 3525 1400 825 Balance -38 945 1625 Weight 90.718 kg 99.9 kg 100.8 kg Impression: 1. Sinus tachycardia, etiology: A. Secondary to hypovalemia B. Febrile state 2. Elevated troponins A. Myocardia ischemia B. Sepsis C. Kidney disease 3. Hypertension, currently normotensive 4. History of pulmonary thrombo embolism 5. History of sepsis 6. Ruptured diverticulitis 7. S/p partial colectomy and colostomy Recommendations: 1. Volume expansion 2. Increase dose of metoprolol to 5 mg IV Q8H and further if necessary depending on blood pressure 3. DVT prophylaxis and consider resumption of IV heparin 4. Follow up ECG and cardiac enzymes Prognosis: Critical Documentation prepared by Cheyanne Crocker, acting as a expert medical writer for Jad Henderson MD.
--- NOTE | 2017-01-11 16:23 | EKG ---
Test Reason : Blood Pressure : / mmHG Vent. Rate : 108 BPM Atrial Rate : 108 BPM P-R Int : 154 ms QRS Dur : 136 ms QT Int : 380 ms P-R-T Axes : 071 -30 075 degrees QTc Int : 509 ms SINUS RHYTHM WITH INTRA ATRIAL CONDUCTION ABNORMALITFREQUENT VPBs,SINGLE AND UNIFOCAL LEFT AXIS DEVIATION CLBBB ABNORMAL ECG WHEN COMPARED WITH ECG OF 09-JAN-2017 14:24, NO MAJOR CHANGES SEEN Confirmed by JOSUÉ THAO MD ([id number]) on 01/11/2017 4:23:04 PM Referred By: Kandice BRADFORD Confirmed By:JOSUÉ THAO MD
[2017-01-11] MEDS: ACETAMINOPHEN 1000 MG/100 ML VIAL (NON FORMULARY) IVPB PRN (19:02)
[2017-01-12] MEDS: ALBUTEROL SO4 2.5/IPRATROPIUM 0.5 INH SOL 3 ML VIAL.NEB. NEB SCH ×4 (00:09→18:33)
[2017-01-12] MEDS: METRONIDAZOLE 500 MG PREMIXED 100 ML IVPB SCH ×3 (01:53→17:40)
[2017-01-12] MEDS: METOPROLOL TARTRATE 5 MG/5 ML VIAL IVPB SCH ×3 (02:03→17:11)
[2017-01-12] MEDS: PIPERACILLIN/TAZOB 3.375 GM/50 ML PRE-DOCKED IVPB SCH ×4 (02:04→21:01)
[2017-01-12] MEDS: HYDROmorphone HCL CARPU-JECT 1 MG/1 ML DISP.SYRIN IVPUSH PRN ×3 (04:14→23:00)
[2017-01-12] MEDS: ACETAMINOPHEN 1000 MG/100 ML VIAL (NON FORMULARY) IVPB PRN ×2 (05:06→21:01)
--- NOTE | 2017-01-12 09:29 | PN ---
Progress Note, Physician Chief Complaint: Pain at the operated site History of Present Illness: S/P colostomy for perforated large bowl - Current Medication List Current Medications: Active Medications Acetaminophen (Ofirmev Injection -) 1,000 mg IVPB Q6H PRN PRN Reason: FEVER Last Admin: 01/12/17 05:06 Dose: 1,000 mg Albuterol/Ipratropium (Duoneb -) 1 amp NEB QIDR DAVID Last Admin: 01/12/17 06:38 Dose: 1 amp Hydromorphone HCl (Dilaudid Injection -) 0.5 mg IVPUSH Q4H PRN PRN Reason: MODERATE PAIN Last Admin: 01/12/17 04:14 Dose: 0.5 mg Hydromorphone HCl (Dilaudid Injection -) 1 mg IVPUSH Q4H PRN PRN Reason: SEVERE PAIN Last Admin: 01/11/17 19:39 Dose: 1 mg Metronidazole (Flagyl 500mg Premixed Ivpb -) 100 mls @ 100 mls/hr IVPB Q8H-IV DAVID Last Admin: 01/12/17 01:53 Dose: 100 mls/hr Famotidine/Sodium Chloride (Pepcid 20 Mg Premixed Ivpb -) 50 mls @ 100 mls/hr IVPB BID DAVID Last Admin: 01/11/17 21:25 Dose: 100 mls/hr Fluconazole (Diflucan 200 Mg/D5w Premixed Ivpb -) 100 mls @ 100 mls/hr IVPB DAILY DAVID Last Admin: 01/11/17 14:09 Dose: 100 mls/hr Lactated Ringer's (Lactated Ringers Solution) 1,000 mls @ 125 mls/hr IV ASDIR DAVID Last Admin: 01/11/17 17:40 Dose: 125 mls/hr Metoprolol Tartrate (Lopressor Injection -) 5 mg IVPB Q8H-IV DAVID Last Admin: 01/12/17 02:03 Dose: 5 mg Piperacillin Sod/Tazobactam Sod (Zosyn 3.375gm Ivpb (Pre-Docked)) 3.375 gm IVPB Q6H-IV DAVID Last Admin: 01/12/17 02:04 Dose: 3.375 gm - Objective Vital Signs: Vital Signs Temperature 100.5 F H 01/12/17 06:00 Pulse Rate 105 H 01/12/17 06:00 Respiratory Rate 18 01/12/17 06:00 Blood Pressure 110/45 01/12/17 06:00 O2 Sat by Pulse Oximetry (%) 95 01/11/17 20:06 Constitutional: Yes: Mild Distress Eyes: Yes: WNL HENT: Yes: WNL Neck: Yes: WNL Cardiovascular: Yes: Regular Rate and Rhythm Respiratory: Yes: Diminished Gastrointestinal: Yes: Normal Bowel Sounds, Other (Colostomy not working yet) Neurological: Yes: Alert Labs: CBC, BMP 01/11/17 05:20 01/11/17 05:20 INR, PTT INR 1.19 (0.82-1.09) H D 01/11/17 05:20 Assessment/Plan Continue same trt
--- NOTE | 2017-01-12 09:52 | EKG ---
Test Reason : Blood Pressure : / mmHG Vent. Rate : 104 BPM Atrial Rate : 104 BPM P-R Int : 156 ms QRS Dur : 142 ms QT Int : 404 ms P-R-T Axes : 086 -43 050 degrees QTc Int : 531 ms SINUS TACHYCARDIA WITH FREQUENT PREMATURE VENTRICULAR COMPLEXES INDETERMINATE AXIS LEFT BUNDLE BRANCH BLOCK ABNORMAL ECG WHEN COMPARED WITH ECG OF 16-JAN-2010 08:11, VENT. RATE HAS INCREASED BY 34 BPM LEFT BUNDLE BRANCH BLOCK HAS REPLACED NON-SPECIFIC INTRA-VENTRICULAR CONDUCTION DELAY Confirmed by TITO LOPEZ MD ([id number]) on 01/12/2017 9:52:14 AM Referred By: Confirmed By:TITO LOPEZ MD
[2017-01-12] MEDS: LACTATED RINGERS SOLUTION 1,000 ML IV SCH (10:04)
[2017-01-12] MEDS: FLUCONAZOLE 200 MG/D5W 100 ML IVPB SCH (10:59)
[2017-01-12] MEDS: FAMOTIDINE 20 MG/50 ML IVPB 50 ML IVPB SCH ×2 (12:00→21:01)
[2017-01-12 13:25] LABS: BASOPHIL 0.3 % (0-2.0); EOSINOPHIL 0.1 % (0-4.5); MCH 32.4 pg (25.7-33.7); MCHC 33.1 g/dl (32.0-36.0); MEAN PLT VOLUME 9.5 fl (7.5-11.1); NEUTROPHILS 88.3 % (42.8-82.8); PLATELET COUNT 159 K/MM3 (134-434); RDW 14.5 % (11.6-15.6); WHITE BLOOD COUNT 19.9 K/mm3 (4.0-10.0)
[2017-01-12 13:43] LABS: INR 1.18 (0.82-1.09)
[2017-01-12 14:00] LABS: ANION GAP 11 (8-16); CALCIUM 7.9 mg/dL (8.5-10.1); CO2 21 mmol/L (21-32); GLUCOSE,RANDOM 108 mg/dL (74-106); PHOSPHOROUS 2.7 mg/dL (2.5-4.9); SGOT/AST 57 U/L (15-37); SGPT/ALT 26 U/L (12-78)
[2017-01-12 14:02] LABS: ALK PHOS 55 U/L (45-117); BILIRUBIN,TOTAL 1.2 mg/dL (0.2-1.0); TOT PROT 4.9 g/dl (6.4-8.2)
--- NOTE | 2017-01-12 14:03 | PROC ---
Procedure Note Procedure: right TLC IJ Central Line Insertion Indication: CVP Monitoring Risks and Benefits Explained: Yes Consent on Chart: Yes Central Line: Triple Lumen Catheter Anesthesia: 1% Lidocaine Sterile Technique: Yes Ultrasound Guided Assistance: Yes Position: Right Internal Jugular Post Insertion: Yes: Bilateral Breath Sounds, Chest X-Ray Ordered (pending ) Sterile Dressing Applied: Yes
--- NOTE | 2017-01-12 14:11 | PN ---
Progress Note, Physician History of Present Illness: patient seen and examined at bedside remains febrile overnight remains oligouric as well complains of pain - Current Medication List Current Medications: Active Medications Acetaminophen (Ofirmev Injection -) 1,000 mg IVPB Q6H PRN PRN Reason: FEVER Last Admin: 01/12/17 05:06 Dose: 1,000 mg Albuterol/Ipratropium (Duoneb -) 1 amp NEB QIDR DAVID Last Admin: 01/12/17 11:50 Dose: 1 amp Hydromorphone HCl (Dilaudid Injection -) 0.5 mg IVPUSH Q4H PRN PRN Reason: MODERATE PAIN Last Admin: 01/12/17 04:14 Dose: 0.5 mg Hydromorphone HCl (Dilaudid Injection -) 1 mg IVPUSH Q4H PRN PRN Reason: SEVERE PAIN Last Admin: 01/11/17 19:39 Dose: 1 mg Metronidazole (Flagyl 500mg Premixed Ivpb -) 100 mls @ 100 mls/hr IVPB Q8H-IV DAVID Last Admin: 01/12/17 10:11 Dose: 100 mls/hr Famotidine/Sodium Chloride (Pepcid 20 Mg Premixed Ivpb -) 50 mls @ 100 mls/hr IVPB BID DAVID Last Admin: 01/12/17 12:00 Dose: 100 mls/hr Fluconazole (Diflucan 200 Mg/D5w Premixed Ivpb -) 100 mls @ 100 mls/hr IVPB DAILY DAVID Last Admin: 01/12/17 10:59 Dose: 100 mls/hr Lactated Ringer's (Lactated Ringers Solution) 1,000 mls @ 125 mls/hr IV ASDIR DAVID Last Admin: 01/12/17 10:04 Dose: 125 mls/hr Metoprolol Tartrate (Lopressor Injection -) 5 mg IVPB Q8H-IV DAVID Last Admin: 01/12/17 10:38 Dose: 5 mg Piperacillin Sod/Tazobactam Sod (Zosyn 3.375gm Ivpb (Pre-Docked)) 3.375 gm IVPB Q6H-IV DAVID Last Admin: 01/12/17 10:07 Dose: 3.375 gm - Objective Vital Signs: Vital Signs Temperature 100.5 F H 01/12/17 10:00 Pulse Rate 85 01/12/17 11:50 Respiratory Rate 22 01/12/17 10:00 Blood Pressure 137/60 01/12/17 10:38 O2 Sat by Pulse Oximetry (%) 100 01/12/17 11:50 Constitutional: Yes: Anxious (at times), Other (tired appearing at times) Eyes: Yes: Other (pupils right side larger than left sluggishly reactive) HENT: Yes: Normocephalic Neck: Yes: Supple, Trachea Midline Cardiovascular: Yes: Tachycardia, Pulse Irregular, S1, S2 Respiratory: Yes: Other (coarse breath sounds bilaterally) Gastrointestinal: Yes: Soft, Hypoactive Bowel Sounds, Other (incision C/D/I abdomen soft appropriately tender ostomy pink with minimal function) Genitourinary: Yes: Jennings Present, Oliguria Extremities: Yes: WNL Edema: No Integumentary: Yes: Tenting Wound/Incision: Yes: Clean/Dry Neurological: Yes: Alert, Other (tired appearing) Psychiatric: Yes: Alert, Oriented (to self and place) Labs: CBC, BMP 01/12/17 12:59 01/12/17 13:00 INR, PTT INR 1.18 (0.82-1.09) H 01/12/17 13:00 - ....Imaging Chest X-ray: Report Reviewed, Image Reviewed Assessment/Plan 81F with a history of diverticulosis presents to the ED with perforated diverticulitis now post op day 3 s/p sigmoid resection with colostomy. perforated diverticulitis: patient is currently septic with worsening leukocystosis and tachycardia. Source is likely from the abdomen. f/u abdominal cultures-Perdomo sensitive E. Coli still spiking fevers will send UA and BCx continue zosyn flagyl and diflucan f/u ID cental line for CVP monitoring patient is volume depleted likely from third spacing all fluids Will check CVP and give IVF as appropriate pressors PRN pain control PRN history of DVT/PE: coumadin on hold for now will speak to surgery about starting heparin gtt JG: continues to improve Creatinine 2.0 today continue IVF continue to trend post-op respiratory failure: improving continue venti mask 50% wean as tolerated Afib: continue rate control with metoprolol 5mg IV q8h will speak to surgery about restarting anticoagulation with heparin gtt HLD: not on medications at this time will restart lipitor at home dose when appropriate FEN: LR @ 125ml/hr Bolus PRN no electrolytes issues NPO Oral vs NG feeds per surgery PPx: SCDs Pepcid PT consult when able to participate incebtive spirometry
--- NOTE | 2017-01-12 14:52 | PN ---
Progress Note, Physician History of Present Illness: patient more awake spiking low grade fever urine output still on the lower side - Current Medication List Current Medications: Active Medications Acetaminophen (Ofirmev Injection -) 1,000 mg IVPB Q6H PRN PRN Reason: FEVER Last Admin: 01/12/17 05:06 Dose: 1,000 mg Albuterol/Ipratropium (Duoneb -) 1 amp NEB QIDR DAVID Last Admin: 01/12/17 11:50 Dose: 1 amp Hydromorphone HCl (Dilaudid Injection -) 0.5 mg IVPUSH Q4H PRN PRN Reason: MODERATE PAIN Last Admin: 01/12/17 04:14 Dose: 0.5 mg Hydromorphone HCl (Dilaudid Injection -) 1 mg IVPUSH Q4H PRN PRN Reason: SEVERE PAIN Last Admin: 01/11/17 19:39 Dose: 1 mg Metronidazole (Flagyl 500mg Premixed Ivpb -) 100 mls @ 100 mls/hr IVPB Q8H-IV DAVID Last Admin: 01/12/17 10:11 Dose: 100 mls/hr Famotidine/Sodium Chloride (Pepcid 20 Mg Premixed Ivpb -) 50 mls @ 100 mls/hr IVPB BID DAVID Last Admin: 01/12/17 12:00 Dose: 100 mls/hr Fluconazole (Diflucan 200 Mg/D5w Premixed Ivpb -) 100 mls @ 100 mls/hr IVPB DAILY DAVID Last Admin: 01/12/17 10:59 Dose: 100 mls/hr Lactated Ringer's (Lactated Ringers Solution) 1,000 mls @ 125 mls/hr IV ASDIR DAVID Last Admin: 01/12/17 10:04 Dose: 125 mls/hr Metoprolol Tartrate (Lopressor Injection -) 5 mg IVPB Q8H-IV DAVID Last Admin: 01/12/17 10:38 Dose: 5 mg Piperacillin Sod/Tazobactam Sod (Zosyn 3.375gm Ivpb (Pre-Docked)) 3.375 gm IVPB Q6H-IV DAVID Last Admin: 01/12/17 10:07 Dose: 3.375 gm - Objective Vital Signs: Vital Signs Temperature 100.5 F H 01/12/17 10:00 Pulse Rate 85 01/12/17 11:50 Respiratory Rate 22 01/12/17 10:00 Blood Pressure 137/60 01/12/17 10:38 O2 Sat by Pulse Oximetry (%) 100 01/12/17 11:50 Constitutional: Yes: Calm, Mild Distress, Other (restless) Cardiovascular: Yes: Tachycardia, S1, S2 Respiratory: Yes: On Venti-Mask, Poor Air Entry, Rhonchi Gastrointestinal: Yes: Soft, Other (dsg c/di osteomy looks good) Musculoskeletal: Yes: WNL Extremities: Yes: WNL Neurological: Yes: Alert, Other Labs: CBC, BMP 01/12/17 12:59 01/12/17 13:00 INR, PTT INR 1.18 (0.82-1.09) H 01/12/17 13:00 Assessment/Plan 81 y/o old with multiple medical problems with perforated bowel post op Perforated bowel Peritonitis Sepsis s/p ex-lap with sigmoid resection, colostomy Resolving JG Lactic acidosis AF h/o DVT/PE plan continue iv abx close watch on the wbc continue antifungal hydration close monitoring as per icu cc time 40 min keep a watch on fever pattern xray looked at
[2017-01-12] MEDS ORDERED: SODIUM CHLORIDE 1,000 ML IV STA (15:34)
--- NOTE | 2017-01-12 16:12 | PN ---
Teaching Attending Note Name of Resident: Arya Cook ATTENDING PHYSICIAN STATEMENT I saw and evaluated the patient. I reviewed the resident's note and discussed the case with the resident. I agree with the resident's findings and plan as documented. SUBJECTIVE: Patient seen and examined at bedside. Lethargic but arousable. Oriented to person and place. UO noted to be decreased and very concentrated. Intake & Output 01/09/17 01/10/17 01/11/17 01/12/17 23:59 23:59 23:59 23:59 Intake Total 3487 2345 2816 1150 Output Total 3525 1400 1295 460 Balance -38 945 1521 690 Weight 200 lb 220 lb 3.869 oz 222 lb 3.615 oz 225 lb 1.471 oz Last Vital Signs Temp Pulse Resp BP Pulse Ox 100.5 F H 85 22 137/60 100 01/12/17 10:00 01/12/17 11:50 01/12/17 10:00 01/12/17 10:38 01/12/17 11:50 Active Medications Acetaminophen (Ofirmev Injection -) 1,000 mg IVPB Q6H PRN PRN Reason: FEVER Last Admin: 01/12/17 05:06 Dose: 1,000 mg Albuterol/Ipratropium (Duoneb -) 1 amp NEB QIDR DAVID Last Admin: 01/12/17 11:50 Dose: 1 amp Hydromorphone HCl (Dilaudid Injection -) 0.5 mg IVPUSH Q4H PRN PRN Reason: MODERATE PAIN Last Admin: 01/12/17 04:14 Dose: 0.5 mg Hydromorphone HCl (Dilaudid Injection -) 1 mg IVPUSH Q4H PRN PRN Reason: SEVERE PAIN Last Admin: 01/11/17 19:39 Dose: 1 mg Metronidazole (Flagyl 500mg Premixed Ivpb -) 100 mls @ 100 mls/hr IVPB Q8H-IV DAVID Last Admin: 01/12/17 10:11 Dose: 100 mls/hr Famotidine/Sodium Chloride (Pepcid 20 Mg Premixed Ivpb -) 50 mls @ 100 mls/hr IVPB BID DAVID Last Admin: 01/12/17 12:00 Dose: 100 mls/hr Fluconazole (Diflucan 200 Mg/D5w Premixed Ivpb -) 100 mls @ 100 mls/hr IVPB DAILY DAVID Last Admin: 01/12/17 10:59 Dose: 100 mls/hr Lactated Ringer's (Lactated Ringers Solution) 1,000 mls @ 125 mls/hr IV ASDIR DAVID Last Admin: 01/12/17 10:04 Dose: 125 mls/hr Sodium Chloride (Normal Saline -) 1,000 mls @ 1,000 mls/hr IV ASDIR STA Stop: 01/12/17 16:33 Last Admin: 01/12/17 15:53 Dose: 1,000 mls/hr Metoprolol Tartrate (Lopressor Injection -) 5 mg IVPB Q8H-IV DAVID Last Admin: 01/12/17 10:38 Dose: 5 mg Piperacillin Sod/Tazobactam Sod (Zosyn 3.375gm Ivpb (Pre-Docked)) 3.375 gm IVPB Q6H-IV DAVID Last Admin: 01/12/17 10:07 Dose: 3.375 gm Constitutional: Yes: Lethargic but arousbale Eyes: Yes: (-) Pallor (-) Icterus HENT: Yes: Normocephalic Neck: Yes: Supple, Trachea Midline Cardiovascular: Yes: Tachycardia, Pulse Irregular, S1, S2 Respiratory: Yes: Rhonchi and crackles at the bases Gastrointestinal: Yes: Soft, Hypoactive Bowel Sounds, incision C/D/I, soft, appropriately tender, ostomy pink with minimal output Genitourinary: Yes: Jennings Present Extremities: Yes: WNL Edema: No Integumentary: Yes: Tenting Wound/Incision: Yes: Clean/Dry Neurological: Yes: Alert, non-focal Psychiatric: Yes: Alert, Oriented (to self and place) Labs: Laboratory Results - last 24 hr 01/12/17 01/12/17 01/12/17 12:59 13:00 13:00 WBC 19.9 H RBC 3.61 Hgb 11.7 Hct 35.4 MCV 98.0 H MCH 32.4 MCHC 33.1 RDW 14.5 Plt Count 159 MPV 9.5 Neutrophils % 88.3 H Lymphocytes % 8.1 D Monocytes % 3.2 L Eosinophils % 0.1 Basophils % 0.3 INR 1.18 H PTT (Actin FS) Sodium 144 Potassium 3.8 Chloride 112 H Carbon Dioxide 21 Anion Gap 11 BUN 49 H Creatinine 2.0 H Creat Clearance w eGFR 23.85 Random Glucose 108 H Calcium 7.9 L Phosphorus 2.7 Magnesium 2.0 Total Bilirubin 1.2 H D AST 57 H D ALT 26 D Alkaline Phosphatase 55 Total Protein 4.9 L Albumin 2.0 L 01/12/17 13:00 WBC RBC Hgb Hct MCV MCH MCHC RDW Plt Count MPV Neutrophils % Lymphocytes % Monocytes % Eosinophils % Basophils % INR PTT (Actin FS) 37.5 H Sodium Potassium Chloride Carbon Dioxide Anion Gap BUN Creatinine Creat Clearance w eGFR Random Glucose Calcium Phosphorus Magnesium Total Bilirubin AST ALT Alkaline Phosphatase Total Protein Albumin CXR: Bibasilar increase in vascular markings/effusions Assessment/Plan Perforated diverticulitis S/P Sigmoid resection with colostomy. Diverticulosis (?) Pulmonary vascular congestion versus early ARDS Peritonitis History of PE/DVT JG suspected ABX per ID IVF to increase CVP (was only 5) Strict I&O Follow cultures Monitor CVP Pain control Incentive Spirometry is able O2 as needed Need to discuss with surgery when it would be appropriate to restart AC PO when ok with surgery Dr Anglin Critical Care Time/MDM Note Total Critical Care Time: 35 Critical Care Statement: The care of this patient involved high complexity decision making to prevent further life threatening deterioration of the patient 's condition and/or to evalute & treat vital organ system(s) failure or risk of failure.
[2017-01-12] MEDS ORDERED: DEXTROSE 5%-LACTATED RINGERS 1,000 ML IV SCH (16:30)
[2017-01-12] MEDS: HEPARIN INFUSION - 500 ML IVPB SCH (17:09)
--- NOTE | 2017-01-12 21:47 | PN ---
Progress Note (short form) - Note Progress Note: Attending Surgeon POD #3 Remains in ICU; extubated; respond to verbal commands though lethargic VSS low grade temp abdomen-wound open and c/d/i; ostomy viable and starting to function labs reviewed; JAMES output sero sanguinous; cultures noted IMP: s/p Hartmans procedure for perforated sigmoid diverticulitis w/abscess PLAN: Continue as per ID/Critical Care; may place NGT to BSB 01/13/17 and possibly start PO/NGT feeds. Taqueria Prado MD FACS
[2017-01-13] MEDS: ALBUTEROL SO4 2.5/IPRATROPIUM 0.5 INH SOL 3 ML VIAL.NEB. NEB SCH ×4 (00:29→18:10)
[2017-01-13] MEDS: METRONIDAZOLE 500 MG PREMIXED 100 ML IVPB SCH ×3 (02:10→17:21)
[2017-01-13] MEDS: METOPROLOL TARTRATE 5 MG/5 ML VIAL IVPB SCH ×3 (02:10→17:21)
[2017-01-13] MEDS: PIPERACILLIN/TAZOB 3.375 GM/50 ML PRE-DOCKED IVPB SCH ×4 (02:10→21:17)
[2017-01-13 06:24] LABS: MCH 31.9 pg (25.7-33.7); MCHC 32.6 g/dl (32.0-36.0); MEAN CELL VOLUME 97.7 fl (80-96); MEAN PLT VOLUME 9.7 fl (7.5-11.1); PLATELET COUNT 181 K/MM3 (134-434); RDW 14.5 % (11.6-15.6); WHITE BLOOD COUNT 15.4 K/mm3 (4.0-10.0)
[2017-01-13] MEDS: HYDROmorphone HCL CARPU-JECT 1 MG/1 ML DISP.SYRIN IVPUSH PRN (06:24)
[2017-01-13 06:36] LABS: INR 1.2 (0.82-1.09); PROTHROMBIN TIME (PATIENT) 13.3 SEC (9.98-11.88)
--- NOTE | 2017-01-13 08:54 | PN ---
Progress Note (short form) - Note Progress Note: Attending Surgeon POD #4 Remains the same in ICU. VSS AF abdomen-soft; wound c/di and granulating; JAMES serosanguinous; ostomy viable and w / stool WBC 15.9; NGT minimal IMP:perforated diverticultis w/abscess formation PLAN: Continue present tx.;NGT off suction. Taqueria Prado MD FACS
--- NOTE | 2017-01-13 09:10 | PN ---
Progress Note, Physician Chief Complaint: Feels better History of Present Illness: S/P colostomy and hartmans procedure - Current Medication List Current Medications: Active Medications Acetaminophen (Ofirmev Injection -) 1,000 mg IVPB Q6H PRN PRN Reason: FEVER Last Admin: 01/12/17 21:01 Dose: 1,000 mg Albuterol/Ipratropium (Duoneb -) 1 amp NEB QIDR DAVID Last Admin: 01/13/17 06:16 Dose: 1 amp Heparin Sodium (Porcine) (Heparin -) 1,000 unit IVPUSH PRN PRN PRN Reason: Heparin Heparin Sodium (Porcine) (Heparin -) 5,000 unit IVPUSH PRN PRN PRN Reason: Heparin Hydromorphone HCl (Dilaudid Injection -) 0.5 mg IVPUSH Q4H PRN PRN Reason: MODERATE PAIN Last Admin: 01/12/17 18:33 Dose: 0.5 mg Hydromorphone HCl (Dilaudid Injection -) 1 mg IVPUSH Q4H PRN PRN Reason: SEVERE PAIN Last Admin: 01/13/17 06:24 Dose: 1 mg Metronidazole (Flagyl 500mg Premixed Ivpb -) 100 mls @ 100 mls/hr IVPB Q8H-IV DAVID Last Admin: 01/13/17 02:10 Dose: 100 mls/hr Famotidine/Sodium Chloride (Pepcid 20 Mg Premixed Ivpb -) 50 mls @ 100 mls/hr IVPB BID DAVDI Last Admin: 01/12/17 21:01 Dose: 100 mls/hr Fluconazole (Diflucan 200 Mg/D5w Premixed Ivpb -) 100 mls @ 100 mls/hr IVPB DAILY [facility] Last Admin: 01/12/17 10:59 Dose: 100 mls/hr Dextrose/Lactated Ringer's (D5-Lr -) 1,000 mls @ 125 mls/hr IV ASDIR DAVID Last Admin: 01/12/17 16:47 Dose: 125 mls/hr Heparin Sodium/Dextrose (Heparin Infusion -) 500 mls @ 20 mls/hr IVPB TITR DAVID ; 1,000 UNITS/HR PRN Reason: Protocol Last Titration: 01/12/17 20:31 Dose: 1,000 units/hr Metoprolol Tartrate (Lopressor Injection -) 5 mg IVPB Q8H-IV DAVID Last Admin: 01/13/17 02:10 Dose: 5 mg Piperacillin Sod/Tazobactam Sod (Zosyn 3.375gm Ivpb (Pre-Docked)) 3.375 gm IVPB Q6H-IV DAVID Last Admin: 01/13/17 02:10 Dose: 3.375 gm - Objective Vital Signs: Vital Signs Temperature 99.6 F 01/13/17 06:00 Pulse Rate 93 H 01/13/17 06:00 Respiratory Rate 14 01/13/17 06:00 Blood Pressure 116/53 01/13/17 06:00 O2 Sat by Pulse Oximetry (%) 100 01/13/17 02:52 Constitutional: Yes: Calm Eyes: Yes: WNL HENT: Yes: WNL Neck: Yes: WNL Cardiovascular: Yes: WNL, Tachycardia Respiratory: Yes: Rales Gastrointestinal: Yes: Soft, Other (Colostomy working) Genitourinary: Yes: Jennings Present Edema: LLE: Trace, RLE: Trace Wound/Incision: Yes: Dressing Dry and Intact Neurological: Yes: Alert Labs: CBC, BMP 01/13/17 05:50 INR, PTT INR 1.20 (0.82-1.09) H 01/13/17 05:50 - ....Imaging X-ray: Image Reviewed Assessment/Plan Case discussed with Dr Prado
[2017-01-13 09:30] LABS: ALBUMIN 1.8 g/dl (3.4-5.0); ANION GAP 8 (8-16); BILIRUBIN,TOTAL 0.8 mg/dL (0.2-1.0); CALCIUM 7.7 mg/dL (8.5-10.1); CO2 22 mmol/L (21-32); CREATININE 1.8 mg/dL (0.55-1.02); GLUCOSE,RANDOM 168 mg/dL (74-106); MAGNESIUM 1.9 mg/dL (1.8-2.4); PHOSPHOROUS 1.9 mg/dL (2.5-4.9); SGOT/AST 54 U/L (15-37); SGPT/ALT 26 U/L (12-78); TOT PROT 4.6 g/dl (6.4-8.2)
[2017-01-13 09:31] LABS: ALK PHOS 58 U/L (45-117)
[2017-01-13] MEDS: FLUCONAZOLE 200 MG/D5W 100 ML IVPB SCH (09:53)
[2017-01-13] MEDS: FAMOTIDINE 20 MG/50 ML IVPB 50 ML IVPB SCH ×2 (09:53→21:17)
[2017-01-13 10:32] LABS: PLATELET ESTIMATE ADEQUATE (NORMAL)
--- NOTE | 2017-01-13 12:11 | EKG ---
Test Reason : Blood Pressure : / mmHG Vent. Rate : 092 BPM Atrial Rate : 092 BPM P-R Int : 184 ms QRS Dur : 154 ms QT Int : 418 ms P-R-T Axes : 074 139 045 degrees QTc Int : 516 ms SINUS RHYTHM WITH FREQUENT PREMATURE VENTRICULAR COMPLEXES INTRA ATRIAL CONDUCTION ABNORMALITY LEFT BUNDLE BRANCH BLOCK ABNORMAL ECG WHEN COMPARED WITH ECG OF 11-JAN-2017 09:44, NO MAJOR CHANGES SEEN Confirmed by JOSUÉ THAO MD ([id number]) on 01/13/2017 12:10:59 PM Referred By: Elsa VALDEZ Confirmed By:JOSUÉ THAO MD
[2017-01-13] MEDS ORDERED: MAGNESIUM SULF 50% (8.12 MEQ/2 ML-1 GM VIAL) IVPB ONE (13:23)
[2017-01-13] MEDS ORDERED: DEXTROSE 5%-WATER - 1,000 ML IV SCH (13:30)
--- NOTE | 2017-01-13 13:36 | PN ---
Progress Note, Physician History of Present Illness: patient seen and examined at bedside no events overnight UOP increased slightly - Current Medication List Current Medications: Active Medications Acetaminophen (Ofirmev Injection -) 1,000 mg IVPB Q6H PRN PRN Reason: FEVER Last Admin: 01/12/17 21:01 Dose: 1,000 mg Albuterol/Ipratropium (Duoneb -) 1 amp NEB QIDR DAVID Last Admin: 01/13/17 11:47 Dose: 1 amp Heparin Sodium (Porcine) (Heparin -) 1,000 unit IVPUSH PRN PRN PRN Reason: Heparin Heparin Sodium (Porcine) (Heparin -) 5,000 unit IVPUSH PRN PRN PRN Reason: Heparin Hydromorphone HCl (Dilaudid Injection -) 0.5 mg IVPUSH Q4H PRN PRN Reason: MODERATE PAIN Last Admin: 01/12/17 18:33 Dose: 0.5 mg Hydromorphone HCl (Dilaudid Injection -) 1 mg IVPUSH Q4H PRN PRN Reason: SEVERE PAIN Last Admin: 01/13/17 06:24 Dose: 1 mg Metronidazole (Flagyl 500mg Premixed Ivpb -) 100 mls @ 100 mls/hr IVPB Q8H-IV DAVID Last Admin: 01/13/17 09:53 Dose: 100 mls/hr Famotidine/Sodium Chloride (Pepcid 20 Mg Premixed Ivpb -) 50 mls @ 100 mls/hr IVPB BID DAVID Last Admin: 01/13/17 09:53 Dose: 100 mls/hr Fluconazole (Diflucan 200 Mg/D5w Premixed Ivpb -) 100 mls @ 100 mls/hr IVPB DAILY [facility] Last Admin: 01/13/17 09:53 Dose: 100 mls/hr Heparin Sodium/Dextrose (Heparin Infusion -) 500 mls @ 20 mls/hr IVPB TITR DAVID ; 1,000 UNITS/HR PRN Reason: Protocol Last Titration: 01/12/17 20:31 Dose: 1,000 units/hr Potassium Phosphate 30 mm/ (Dextrose) 260 mls @ 62.5 mls/hr IVPB ONCE ONE Stop: 01/13/17 17:29 Dextrose (D5w -) 1,000 mls @ 100 mls/hr IV .Q10H DAVID Magnesium Sulfate (Magnesium Sulfate) 1 gm IVPB ONCE ONE Stop: 01/13/17 13:24 Metoprolol Tartrate (Lopressor Injection -) 5 mg IVPB Q8H-IV [facility] Last Admin: 01/13/17 09:52 Dose: 5 mg Piperacillin Sod/Tazobactam Sod (Zosyn 3.375gm Ivpb (Pre-Docked)) 3.375 gm IVPB Q6H-IV [facility] Last Admin: 01/13/17 09:53 Dose: 3.375 gm Potassium Chloride (Potassium Chloride 20 Meq Premix Ivpb -) 20 meq IVPB Q60M [facility] Stop: 01/13/17 14:31 - Objective Vital Signs: Vital Signs Temperature 99.4 F 01/13/17 10:00 Pulse Rate 90 01/13/17 12:00 Respiratory Rate 16 01/13/17 12:00 Blood Pressure 141/84 01/13/17 12:00 O2 Sat by Pulse Oximetry (%) 99 01/13/17 09:00 Constitutional: Yes: Anxious (at times), Other (tired appearing at times) Eyes: Yes: Other (pupils right side larger than left sluggishly reactive) HENT: Yes: Normocephalic Neck: Yes: Supple, Trachea Midline Cardiovascular: Yes: Tachycardia, Pulse Irregular, S1, S2 Respiratory: Yes: Other (coarse breath sounds bilaterally) Gastrointestinal: Yes: Soft, Hypoactive Bowel Sounds, Other (incision C/D/I abdomen soft appropriately tender ostomy pink with minimal function) Genitourinary: Yes: Jennings Present, Oliguria Extremities: Yes: WNL Edema: No Integumentary: Yes: Tenting Wound/Incision: Yes: Clean/Dry Neurological: Yes: Alert, Other (tired appearing) Psychiatric: Yes: Alert, Oriented (to self and place) Labs: CBC, BMP 01/13/17 05:50 01/13/17 05:50 INR, PTT INR 1.20 (0.82-1.09) H 01/13/17 05:50 Assessment/Plan 81F with a history of diverticulosis presents to the ED with perforated diverticulitis now post op day 3 s/p sigmoid resection with colostomy. perforated diverticulitis: patient is currently septic with worsening leukocystosis and tachycardia. Source is likely from the abdomen. f/u abdominal cultures-Perdomo sensitive E. Coli still spiking fevers will send UA and BCx-pending continue zosyn flagyl and diflucan f/u ID cental line for CVP monitoring patient is volume depleted likely from third spacing all fluids bolus PRN pressors PRN-not needed so far pain control PRN NG tube to gravity if tolerates will possible start NG feeds tomorrow history of DVT/PE: coumadin on hold for now on heparin gtt JG: continues to improve Creatinine 1.8 today continue IVF continue to trend post-op respiratory failure: improving continue venti mask 50% wean as tolerated Afib: continue rate control with metoprolol 5mg IV q8h continue heparin gtt HLD: not on medications at this time will restart lipitor at home dose when appropriate FEN: change to D51/2NS @ 100ml/hr as patient is hypernatremic today hypernatremia hypokalemia hypophosphatemia will replete. NPO- NGT feeding possible tomorrow PPx: SCDs Pepcid PT consult when able to participate incentive spirometry CCTime 35 min
[2017-01-13] MEDS ORDERED: POTASSIUM CHLORIDE 20 MEQ PREMIX IVPB 100 ML IVPB SCH (15:00)
[2017-01-13] MEDS: D5-1/2NS+20 MEQ KCL - 1,000 ML IV SCH (15:17)
--- NOTE | 2017-01-13 15:20 | PN ---
Teaching Attending Note Name of Resident: Arya Cook ATTENDING PHYSICIAN STATEMENT I saw and evaluated the patient. I reviewed the resident's note and discussed the case with the resident. I agree with the resident's findings and plan as documented. SUBJECTIVE: Patient seen and examined at bedside. More awake and alert today. No flatus or BM. Denies CP or SOB. Remains NPO and on IVF. Intake & Output 01/10/17 01/11/17 01/12/17 01/13/17 23:59 23:59 23:59 23:59 Intake Total 2345 2816 3895 2106 Output Total 1400 1295 780 310 Balance 945 1521 3115 1796 Weight 220 lb 3.869 oz 222 lb 3.615 oz 225 lb 1.471 oz 234 lb 5.622 oz Last Vital Signs Temp Pulse Resp BP Pulse Ox 99.6 F 90 16 143/67 99 01/13/17 14:00 01/13/17 14:00 01/13/17 14:00 01/13/17 14:00 01/13/17 09:00 Active Medications Acetaminophen (Ofirmev Injection -) 1,000 mg IVPB Q6H PRN PRN Reason: FEVER Last Admin: 01/12/17 21:01 Dose: 1,000 mg Albuterol/Ipratropium (Duoneb -) 1 amp NEB QIDR DAVID Last Admin: 01/13/17 11:47 Dose: 1 amp Heparin Sodium (Porcine) (Heparin -) 1,000 unit IVPUSH PRN PRN PRN Reason: Heparin Heparin Sodium (Porcine) (Heparin -) 5,000 unit IVPUSH PRN PRN PRN Reason: Heparin Hydromorphone HCl (Dilaudid Injection -) 0.5 mg IVPUSH Q4H PRN PRN Reason: MODERATE PAIN Last Admin: 01/12/17 18:33 Dose: 0.5 mg Hydromorphone HCl (Dilaudid Injection -) 1 mg IVPUSH Q4H PRN PRN Reason: SEVERE PAIN Last Admin: 01/13/17 06:24 Dose: 1 mg Metronidazole (Flagyl 500mg Premixed Ivpb -) 100 mls @ 100 mls/hr IVPB Q8H-IV DAVID Last Admin: 01/13/17 09:53 Dose: 100 mls/hr Famotidine/Sodium Chloride (Pepcid 20 Mg Premixed Ivpb -) 50 mls @ 100 mls/hr IVPB BID [facility] Last Admin: 01/13/17 09:53 Dose: 100 mls/hr Fluconazole (Diflucan 200 Mg/D5w Premixed Ivpb -) 100 mls @ 100 mls/hr IVPB DAILY [facility] Last Admin: 01/13/17 09:53 Dose: 100 mls/hr Heparin Sodium/Dextrose (Heparin Infusion -) 500 mls @ 20 mls/hr IVPB TITR DAVID ; 1,000 UNITS/HR PRN Reason: Protocol Last Titration: 01/12/17 20:31 Dose: 1,000 units/hr Potassium Phosphate 30 mm/ (Dextrose) 260 mls @ 62.5 mls/hr IVPB ONCE ONE Stop: 01/13/17 21:09 Potassium Chloride/Dextrose/Sod Cl (D5-1/2ns+20 Meq Kcl -) 1,000 mls @ 100 mls/ hr IV ASDIR [facility] Last Admin: 01/13/17 15:17 Dose: 100 mls/hr Metoprolol Tartrate (Lopressor Injection -) 5 mg IVPB Q8H-IV [facility] Last Admin: 01/13/17 09:52 Dose: 5 mg Piperacillin Sod/Tazobactam Sod (Zosyn 3.375gm Ivpb (Pre-Docked)) 3.375 gm IVPB Q6H-IV [facility] Last Admin: 01/13/17 15:19 Dose: 3.375 gm Potassium Chloride (Potassium Chloride 20 Meq Premix Ivpb -) 20 meq IVPB Q60M [facility] Stop: 01/13/17 17:00 Constitutional: Yes: Awake and alert, NAD Eyes: Yes: (-) Pallor (-) Icterus HENT: Yes: Normocephalic Neck: Yes: Supple, Trachea Midline Cardiovascular: Yes: Tachycardia, Pulse Irregular, S1, S2 Respiratory: Yes: Rhonchi and crackles at the bases Gastrointestinal: Yes: Soft, Hypoactive Bowel Sounds, incision C/D/I, soft, appropriately tender, ostomy pink with minimal output Genitourinary: Yes: Jennings Present Extremities: Yes: WNL Edema: No Integumentary: Yes: Tenting Wound/Incision: Yes: Clean/Dry Neurological: Yes: Alert, non-focal Psychiatric: Yes: Alert, Oriented (to self and place) Labs: Laboratory Results - last 24 hr 01/09/17 01/12/17 01/13/17 13:28 13:00 02:15 WBC RBC Hgb Hct MCV MCH MCHC RDW Plt Count MPV Neutrophils % Lymphocytes % Monocytes % Eosinophils % Basophils % Band Neutrophils Differential Comment Platelet Estimate INR PTT (Actin FS) 37.5 H Sodium Potassium Chloride Carbon Dioxide Anion Gap BUN Creatinine Creat Clearance w eGFR Random Glucose Calcium Phosphorus Magnesium Total Bilirubin AST ALT Alkaline Phosphatase Troponin I 1.21 H* Total Protein Albumin Blood Type O POSITIVE Antibody Screen Positive H Prewarmed Antibody Srcn Negative Antibody Identification COLD AUTOIMMUNE HEMO ANEMIA Direct Antiglob Test Positive H Crossmatch IS Only See Detail 01/13/17 01/13/17 01/13/17 02:15 05:50 05:50 WBC 15.4 H RBC 3.43 L Hgb 10.9 Hct 33.5 MCV 97.7 H MCH 31.9 MCHC 32.6 RDW 14.5 Plt Count 181 MPV 9.7 Neutrophils % 77.0 Lymphocytes % 8.0 Monocytes % 2.0 L Eosinophils % 0.0 D Basophils % 0.0 Band Neutrophils 13.0 H D Differential Comment Manual diff done Platelet Estimate Adequate INR 1.20 H PTT (Actin FS) 64.0 H D Sodium Potassium Chloride Carbon Dioxide Anion Gap BUN Creatinine Creat Clearance w eGFR Random Glucose Calcium Phosphorus Magnesium Total Bilirubin AST ALT Alkaline Phosphatase Troponin I Total Protein Albumin Blood Type Antibody Screen Prewarmed Antibody Srcn Antibody Identification Direct Antiglob Test Crossmatch IS Only 01/13/17 01/13/17 05:50 05:50 WBC RBC Hgb Hct MCV MCH MCHC RDW Plt Count MPV Neutrophils % Lymphocytes % Monocytes % Eosinophils % Basophils % Band Neutrophils Differential Comment Platelet Estimate INR PTT (Actin FS) Sodium 147 H Potassium 3.3 L Chloride 117 H Carbon Dioxide 22 Anion Gap 8 BUN 42 H Creatinine 1.8 H Creat Clearance w eGFR 26.94 Random Glucose 168 H D Calcium 7.7 L Phosphorus 1.9 L D Magnesium 1.9 Total Bilirubin 0.8 D AST 54 H ALT 26 Alkaline Phosphatase 58 Troponin I 1.22 H* Total Protein 4.6 L Albumin 1.8 L Blood Type Antibody Screen Prewarmed Antibody Srcn Antibody Identification Direct Antiglob Test Crossmatch IS Only Assessment/Plan Perforated diverticulitis S/P Sigmoid resection with colostomy. 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
[2017-01-13] MEDS: ACETAMINOPHEN 1000 MG/100 ML VIAL (NON FORMULARY) IVPB PRN (15:37)
--- NOTE | 2017-01-13 15:58 | PN ---
Progress Note, Physician History of Present Illness: patient was doing well in the morning spiked a fever family in room urine output has increased - Current Medication List Current Medications: Active Medications Acetaminophen (Ofirmev Injection -) 1,000 mg IVPB Q6H PRN PRN Reason: FEVER Last Admin: 01/13/17 15:37 Dose: 1,000 mg Albuterol/Ipratropium (Duoneb -) 1 amp NEB QIDR DAVID Last Admin: 01/13/17 11:47 Dose: 1 amp Heparin Sodium (Porcine) (Heparin -) 1,000 unit IVPUSH PRN PRN PRN Reason: Heparin Heparin Sodium (Porcine) (Heparin -) 5,000 unit IVPUSH PRN PRN PRN Reason: Heparin Hydromorphone HCl (Dilaudid Injection -) 0.5 mg IVPUSH Q4H PRN PRN Reason: MODERATE PAIN Last Admin: 01/12/17 18:33 Dose: 0.5 mg Hydromorphone HCl (Dilaudid Injection -) 1 mg IVPUSH Q4H PRN PRN Reason: SEVERE PAIN Last Admin: 01/13/17 06:24 Dose: 1 mg Metronidazole (Flagyl 500mg Premixed Ivpb -) 100 mls @ 100 mls/hr IVPB Q8H-IV DAVID Last Admin: 01/13/17 09:53 Dose: 100 mls/hr Famotidine/Sodium Chloride (Pepcid 20 Mg Premixed Ivpb -) 50 mls @ 100 mls/hr IVPB BID [facility] Last Admin: 01/13/17 09:53 Dose: 100 mls/hr Fluconazole (Diflucan 200 Mg/D5w Premixed Ivpb -) 100 mls @ 100 mls/hr IVPB DAILY [facility] Last Admin: 01/13/17 09:53 Dose: 100 mls/hr Heparin Sodium/Dextrose (Heparin Infusion -) 500 mls @ 20 mls/hr IVPB TITR DAVID ; 1,000 UNITS/HR PRN Reason: Protocol Last Titration: 01/12/17 20:31 Dose: 1,000 units/hr Potassium Phosphate 30 mm/ (Dextrose) 260 mls @ 62.5 mls/hr IVPB ONCE ONE Stop: 01/13/17 21:09 Potassium Chloride/Dextrose/Sod Cl (D5-1/2ns+20 Meq Kcl -) 1,000 mls @ 100 mls/ hr IV ASDIR [facility] Last Admin: 01/13/17 15:17 Dose: 100 mls/hr Metoprolol Tartrate (Lopressor Injection -) 5 mg IVPB Q8H-IV DAVID Last Admin: 01/13/17 09:52 Dose: 5 mg Piperacillin Sod/Tazobactam Sod (Zosyn 3.375gm Ivpb (Pre-Docked)) 3.375 gm IVPB Q6H-IV [facility]ID Last Admin: 01/13/17 15:19 Dose: 3.375 gm Potassium Chloride (Potassium Chloride 20 Meq Premix Ivpb -) 20 meq IVPB Q60M [facility] Stop: 01/13/17 16:31 - Objective Vital Signs: Vital Signs Temperature 99.6 F 01/13/17 14:00 Pulse Rate 90 01/13/17 14:00 Respiratory Rate 16 01/13/17 14:00 Blood Pressure 143/67 01/13/17 14:00 O2 Sat by Pulse Oximetry (%) 99 01/13/17 09:00 Constitutional: Yes: No Distress, Calm Cardiovascular: Yes: Regular Rate and Rhythm Respiratory: Yes: On Venti-Mask, Poor Air Entry, Other Gastrointestinal: Yes: Soft, Hypoactive Bowel Sounds, Other (osteomy in place) Extremities: Yes: Other Edema: LLE: 1+, RLE: 1+ Neurological: Yes: Alert Psychiatric: Yes: Alert Labs: CBC, BMP 01/13/17 05:50 01/13/17 05:50 INR, PTT INR 1.20 (0.82-1.09) H 01/13/17 05:50 Assessment/Plan 81 y/o old with multiple medical problems with perforated bowel post op Perforated bowel Peritonitis Sepsis s/p ex-lap with sigmoid resection, colostomy Resolving JG Lactic acidosis AF h/o DVT/PE wbc trending down plan continue iv abx close watch on the wbc continue antifungal hydration close monitoring as per icu cc time 40 min keep a watch on fever pattern hest physio
--- NOTE | 2017-01-13 16:08 | PATH ---
Surgical Pathology Report Patient Name: NIC SORENSEN [facility]. Rec. #: [id number] /Age/Gender: 1935 (Age: 81) / F Account: [id number] Location: ICU TOBACCO STRIPPER Taken: 01/09/2017 Received: 01/12/2017 Reported: 01/13/2017 Physicians: MD Solomon Ramirez M.D. Specimen(s) Received PORTION OF SIGMOID COLON Clinical History Perforation of sigmoid colon, diverticulitis Final Diagnosis PORTION OF SIGMOID COLON, RESECTION: SEGMENT OF COLON WITH EXTENSIVE DIVERTICULOSIS AND DIVERTICULITIS WITH EVIDENCE OF PERFORATION, ACUTE AND CHRONIC INFLAMMATION WITH MURAL ABSCESS FORMATION AND ASSOCIATED ACUTE SEROSITIS. SMALL SERRATED ADENOMA. BENIGN REACTIVE LYMPH NODES. NO MALIGNANCY IDENTIFIED. SURGICAL RESECTION MARGINS APPEAR VIABLE. Electronically Signed Jason Garland M.D. Gross Description Received in formalin labeled "portion of sigmoid colon," is a 12 cm in length portion of sigmoid colon with one stapled mucosal margin and one open mucosal margin. The serosa is reece-palencia with multifocal outpouchings and moderate attached fat and focal reece-acevedo exudate. The lumen contains abundant fecal material. The mucosa is reece with preserved folds. A 0.4 cm mucosal polypoid lesion is seen. Sectioning reveals numerous diverticula. There are 2 reece palpable lymph nodes identified within the attached fat. Dry Wall Nailer sections are submitted in 15 cassettes as follows: 1-stapled mucosal margin; 2-open mucosal margin; 9-12-[id number] diverticula with possible polyp in #9, 14-15-one whole trisected lymph node each. /01/12/2017 saudi/01/12/2017
[2017-01-13] MEDS: POTASSIUM CHLORIDE 20 MEQ PREMIX IVPB 100 ML IVPB SCH ×3 (16:48→18:06)
[2017-01-13] MEDS: HEPARIN INFUSION - 500 ML IVPB SCH (17:00)
[2017-01-13] MEDS ORDERED: POTASSIUM PHOSPHATE 30 MM in DEXTROSE 5%-WATER - 250 ML IVPB ONE (17:00)
[2017-01-14] MEDS: ALBUTEROL SO4 2.5/IPRATROPIUM 0.5 INH SOL 3 ML VIAL.NEB. NEB SCH ×4 (00:35→18:15)
[2017-01-14] MEDS: METOPROLOL TARTRATE 5 MG/5 ML VIAL IVPB SCH ×3 (01:08→17:07)
[2017-01-14] MEDS: METRONIDAZOLE 500 MG PREMIXED 100 ML IVPB SCH ×3 (01:09→17:09)
[2017-01-14] MEDS: PIPERACILLIN/TAZOB 3.375 GM/50 ML PRE-DOCKED IVPB SCH ×4 (02:00→20:29)
[2017-01-14] MEDS: D5-1/2NS+20 MEQ KCL - 1,000 ML IV SCH ×2 (02:52→10:20)
[2017-01-14 06:38] LABS: MCH 32.2 pg (25.7-33.7); MCHC 32.8 g/dl (32.0-36.0); MEAN CELL VOLUME 98.3 fl (80-96); MEAN PLT VOLUME 10.1 fl (7.5-11.1); PLATELET COUNT 219 K/MM3 (134-434); RDW 14.7 % (11.6-15.6); WHITE BLOOD COUNT 16.2 K/mm3 (4.0-10.0)
[2017-01-14 06:45] LABS: INR 1.32 (0.82-1.09); PROTHROMBIN TIME (PATIENT) 14.6 SEC (9.98-11.88)
[2017-01-14 06:47] LABS: ACTIVATED PTT 60.1 SECONDS (26.9-34.4)
[2017-01-14 06:58] LABS: ALBUMIN 1.7 g/dl (3.4-5.0); GLUCOSE,RANDOM 170 mg/dL (74-106); PHOSPHOROUS 2.6 mg/dL (2.5-4.9); SGOT/AST 51 U/L (15-37)
[2017-01-14 07:00] LABS: ALK PHOS 52 U/L (45-117); ANION GAP 9 (8-16); BILIRUBIN,TOTAL 0.7 mg/dL (0.2-1.0); CO2 22 mmol/L (21-32); CREATININE 1.7 mg/dL (0.55-1.02); MAGNESIUM 2.1 mg/dL (1.8-2.4); SGPT/ALT 28 U/L (12-78); TOT PROT 4.6 g/dl (6.4-8.2)
[2017-01-14 07:29] LABS: TROPONIN I 1.37 ng/ml (0.00-0.05)
[2017-01-14] MEDS ORDERED: POTASSIUM CHLORIDE 20 MEQ PREMIX IVPB 100 ML IVPB SCH (08:15)
--- NOTE | 2017-01-14 08:27 | PN ---
Progress Note (short form) - Note Progress Note: POD #5 Remains the same in ICU. On BiPAP. Post-Op VT. Current temp 100F. Last Vital Signs Temp Pulse Resp BP Pulse Ox 99.3 F 104 H 14 131/62 100 01/14/17 02:00 01/14/17 06:00 01/14/17 06:00 01/14/17 06:00 01/14/17 07:07 BMP 01/14/17 05:30 INR, PTT INR 1.32 (0.82-1.09) H 01/14/17 05:30 WBC Trend 01/12/17 01/13/17 01/14/17 12:59 05:50 05:30 WBC 19.9 H 15.4 H 16.2 H Gen:nad Abd: soft, wound c/d/i and granulating; few rambo intact. JAMES (serosang); Ostomy viable (pink and producing) : Juarez to gravity LE: SCDs b/l Problem List - Problems (1) Perforated bowel Assessment/Plan: POD #5 s/p Hartmans procedure for perforated sigmoid with abscess; POST-OP VT Pulmonary toileting BMP, CBC in AM GI /DVT ppx Trial of clears OOB to chair Keep juarez until patient is ambulatory Above plan discussed with Dr. Prado and agrees Code(s): K63.1 - PERFORATION OF INTESTINE (NONTRAUMATIC)
--- NOTE | 2017-01-14 09:25 | PN ---
Progress Note, Physician Chief Complaint: On Bipap History of Present Illness: S/P colostomy for perforated colon - Current Medication List Current Medications: Active Medications Acetaminophen (Ofirmev Injection -) 1,000 mg IVPB Q6H PRN PRN Reason: FEVER Last Admin: 01/13/17 15:37 Dose: 1,000 mg Albuterol/Ipratropium (Duoneb -) 1 amp NEB QIDR DAVID Last Admin: 01/14/17 06:30 Dose: 1 amp Heparin Sodium (Porcine) (Heparin -) 1,000 unit IVPUSH PRN PRN PRN Reason: Heparin Heparin Sodium (Porcine) (Heparin -) 5,000 unit IVPUSH PRN PRN PRN Reason: Heparin Hydromorphone HCl (Dilaudid Injection -) 0.5 mg IVPUSH Q4H PRN PRN Reason: MODERATE PAIN Last Admin: 01/12/17 18:33 Dose: 0.5 mg Hydromorphone HCl (Dilaudid Injection -) 1 mg IVPUSH Q4H PRN PRN Reason: SEVERE PAIN Last Admin: 01/13/17 06:24 Dose: 1 mg Metronidazole (Flagyl 500mg Premixed Ivpb -) 100 mls @ 100 mls/hr IVPB Q8H-IV DAVID Last Admin: 01/14/17 01:09 Dose: 100 mls/hr Famotidine/Sodium Chloride (Pepcid 20 Mg Premixed Ivpb -) 50 mls @ 100 mls/hr IVPB BID DAVID Last Admin: 01/13/17 21:17 Dose: 100 mls/hr Fluconazole (Diflucan 200 Mg/D5w Premixed Ivpb -) 100 mls @ 100 mls/hr IVPB DAILY [facility] Last Admin: 01/13/17 09:53 Dose: 100 mls/hr Heparin Sodium/Dextrose (Heparin Infusion -) 500 mls @ 20 mls/hr IVPB TITR DAVID ; 1,000 UNITS/HR PRN Reason: Protocol Last Titration: 01/13/17 19:00 Dose: 1,000 units/hr Potassium Chloride/Dextrose/Sod Cl (D5-1/2ns+20 Meq Kcl -) 1,000 mls @ 100 mls/ hr IV ASDIR DAVID Last Admin: 01/14/17 02:52 Dose: 100 mls/hr Potassium Chloride (Potassium Chloride 20 Meq Premix Ivpb -) 100 mls @ 100 mls/ hr IVPB Q1H DAVID Stop: 01/14/17 10:59 Metoprolol Tartrate (Lopressor Injection -) 5 mg IVPB Q8H-IV DAVID Last Admin: 01/14/17 01:08 Dose: 5 mg Piperacillin Sod/Tazobactam Sod (Zosyn 3.375gm Ivpb (Pre-Docked)) 3.375 gm IVPB Q6H-IV DAVID Last Admin: 01/14/17 02:00 Dose: 3.375 gm - Objective Vital Signs: Vital Signs Temperature 99.3 F 01/14/17 02:00 Pulse Rate 104 H 01/14/17 06:00 Respiratory Rate 14 01/14/17 06:00 Blood Pressure 131/62 01/14/17 06:00 O2 Sat by Pulse Oximetry (%) 100 01/14/17 07:07 Constitutional: Yes: Mild Distress Eyes: Yes: WNL HENT: Yes: WNL Neck: Yes: WNL Cardiovascular: Yes: Regular Rate and Rhythm Respiratory: Yes: On BiPap Gastrointestinal: Yes: WNL, Hypoactive Bowel Sounds ...Rectal Exam: Yes: Deferred Genitourinary: Yes: Jennings Present Musculoskeletal: Yes: Muscle Weakness Neurological: Yes: Alert Labs: CBC, BMP 01/14/17 05:30 01/14/17 05:30 INR, PTT INR 1.32 (0.82-1.09) H 01/14/17 05:30 - ....Imaging X-ray: Image Reviewed Assessment/Plan Continue same trt
[2017-01-14] MEDS: FAMOTIDINE 20 MG/50 ML IVPB 50 ML IVPB SCH ×2 (10:05→21:13)
[2017-01-14] MEDS: FLUCONAZOLE 200 MG/D5W 100 ML IVPB SCH (10:06)
[2017-01-14] MEDS: KCL 20 MEQ PREMIX BAG 100 ML IVPB SCH ×2 (10:07→12:21)
[2017-01-14] MEDS ORDERED: FUROSEMIDE 40 MG/4 ML INJECTABLE VIAL IVPUSH ONE (12:00)
--- NOTE | 2017-01-14 14:05 | PN ---
Progress Note, Physician History of Present Illness: patient seen and examined at bedside hypoxic overnight required bipap now resolved UOP marginal - Current Medication List Current Medications: Active Medications Acetaminophen (Ofirmev Injection -) 1,000 mg IVPB Q6H PRN PRN Reason: FEVER Last Admin: 01/13/17 15:37 Dose: 1,000 mg Albuterol/Ipratropium (Duoneb -) 1 amp NEB QIDR DAVID Last Admin: 01/14/17 12:00 Dose: 1 amp Heparin Sodium (Porcine) (Heparin -) 1,000 unit IVPUSH PRN PRN PRN Reason: Heparin Heparin Sodium (Porcine) (Heparin -) 5,000 unit IVPUSH PRN PRN PRN Reason: Heparin Hydromorphone HCl (Dilaudid Injection -) 0.5 mg IVPUSH Q4H PRN PRN Reason: MODERATE PAIN Last Admin: 01/12/17 18:33 Dose: 0.5 mg Hydromorphone HCl (Dilaudid Injection -) 1 mg IVPUSH Q4H PRN PRN Reason: SEVERE PAIN Last Admin: 01/13/17 06:24 Dose: 1 mg Metronidazole (Flagyl 500mg Premixed Ivpb -) 100 mls @ 100 mls/hr IVPB Q8H-IV DAVID Last Admin: 01/14/17 10:04 Dose: 100 mls/hr Famotidine/Sodium Chloride (Pepcid 20 Mg Premixed Ivpb -) 50 mls @ 100 mls/hr IVPB BID DAVID Last Admin: 01/14/17 10:05 Dose: 100 mls/hr Fluconazole (Diflucan 200 Mg/D5w Premixed Ivpb -) 100 mls @ 100 mls/hr IVPB DAILY [facility] Last Admin: 01/14/17 10:06 Dose: 100 mls/hr Heparin Sodium/Dextrose (Heparin Infusion -) 500 mls @ 20 mls/hr IVPB TITR DAVID ; 1,000 UNITS/HR PRN Reason: Protocol Last Titration: 01/13/17 19:00 Dose: 1,000 units/hr Metoprolol Tartrate (Lopressor Injection -) 5 mg IVPB Q8H-IV DAVID Last Admin: 01/14/17 10:06 Dose: 5 mg Piperacillin Sod/Tazobactam Sod (Zosyn 3.375gm Ivpb (Pre-Docked)) 3.375 gm IVPB Q6H-IV DAVID Last Admin: 01/14/17 10:05 Dose: 3.375 gm - Objective Vital Signs: Vital Signs Temperature 100 F H 01/14/17 13:17 Pulse Rate 94 H 01/14/17 13:17 Respiratory Rate 16 01/14/17 13:17 Blood Pressure 134/60 01/14/17 13:17 O2 Sat by Pulse Oximetry (%) 98 01/14/17 10:48 Constitutional: Yes: Anxious (at times), Other (tired appearing at times) Eyes: Yes: Other (pupils euqal and sluggishly reactive to light) HENT: Yes: Normocephalic Neck: Yes: Supple, Trachea Midline Cardiovascular: Yes: Tachycardia, Pulse Irregular, S1, S2 Respiratory: Yes: Other (coarse breath sounds bilaterally but less so than yesterday) Gastrointestinal: Yes: Soft, Hypoactive Bowel Sounds, Other (incision C/D/I abdomen soft appropriately tender ostomy pink with good function) Genitourinary: Yes: Jennings Present, Oliguria Extremities: Yes: WNL Edema: No Integumentary: Yes: Tenting Wound/Incision: Yes: Clean/Dry Neurological: Yes: Alert, Other (tired appearing) Psychiatric: Yes: Alert, Oriented (to self and place) Labs: CBC, BMP 01/14/17 05:30 01/14/17 05:30 INR, PTT INR 1.32 (0.82-1.09) H 01/14/17 05:30 - ....Imaging Chest X-ray: Report Reviewed, Image Reviewed Assessment/Plan 81F with a history of diverticulosis presents to the ED with perforated diverticulitis now post op day 3 s/p sigmoid resection with colostomy. perforated diverticulitis: patient is currently septic with worsening leukocystosis and tachycardia. Source is likely from the abdomen. f/u abdominal cultures-Perdomo sensitive E. Coli still spiking fevers Tmax 100.6 yesterday at 10pm will send BCx-no growth to date continue zosyn flagyl and diflucan f/u ID central line for CVP monitoring placed 01/12/2017 patient is volume depleted likely from third spacing all fluids stop IVF pain control PRN D/C NGT as it was not in good position and patient tolerated NG tube off suction for 24 hours start sips of clears Post-op NSTEMI: troponin remains elevated cardiology consult appreciated likely from a combination of demand and decreased clearance from acute kidney injury stop trending troponins per cardiology history of DVT/PE: coumadin on hold for now on heparin gtt JG: continues to improve Creatinine 1.7 today continue IVF continue to trend post-op respiratory failure: improving BiPAP PRN wean off venti mask placed on nasal cannula today and tolerating give lasix today for fluid overload Will get BNP with morning labs per cardiology Afib: continue rate control with metoprolol 5mg IV q8h continue heparin gtt HLD: not on medications at this time will restart lipitor at home dose when appropriate FEN: stop IVF need lasix will give 40mg IV one time replete for hypokalemia CLD PPx: SCDs Pepcid PT consult when able to participate incentive spirometry CCTime 35 min
--- NOTE | 2017-01-14 16:18 | PN ---
Teaching Attending Note Name of Resident: Arya Cook ATTENDING PHYSICIAN STATEMENT I saw and evaluated the patient. I reviewed the resident's note and discussed the case with the resident. I agree with the resident's findings and plan as documented. SUBJECTIVE: Pt seen and examined in the ICU. Awake but lethargic. Low grade fevers. Tachypneic at rest, not answering questions appropriately. OBJECTIVE: Last Vital Signs Temp Pulse Resp BP Pulse Ox 100 F H 94 H 16 134/60 94 L 01/14/17 14:00 01/14/17 14:00 01/14/17 14:00 01/14/17 14:00 01/14/17 14:30 Intake & Output 01/11/17 01/12/17 01/13/17 01/14/17 23:59 23:59 23:59 23:59 Intake Total 2816 3895 5156 990 Output Total 1295 780 970 820 Balance 1521 3115 4186 170 Weight 222 lb 3.615 oz 225 lb 1.471 oz 234 lb 5.622 oz 235 lb 8 oz Gen: tachypneic at rest with some accessory muscle use Heart: RRR Lung: scattered rhonchi Abd: soft, nontender, dressings clean, +JAMES with dark purulent drainage, +ostomy with gas filled bag Ext: no edema CBC, BMP 01/14/17 05:30 01/14/17 05:30 Active Medications Acetaminophen (Ofirmev Injection -) 1,000 mg IVPB Q6H PRN PRN Reason: FEVER Last Admin: 01/13/17 15:37 Dose: 1,000 mg Albuterol/Ipratropium (Duoneb -) 1 amp NEB QIDR DAVID Last Admin: 01/14/17 12:00 Dose: 1 amp Heparin Sodium (Porcine) (Heparin -) 1,000 unit IVPUSH PRN PRN PRN Reason: Heparin Heparin Sodium (Porcine) (Heparin -) 5,000 unit IVPUSH PRN PRN PRN Reason: Heparin Hydromorphone HCl (Dilaudid Injection -) 0.5 mg IVPUSH Q4H PRN PRN Reason: MODERATE PAIN Last Admin: 01/12/17 18:33 Dose: 0.5 mg Hydromorphone HCl (Dilaudid Injection -) 1 mg IVPUSH Q4H PRN PRN Reason: SEVERE PAIN Last Admin: 01/13/17 06:24 Dose: 1 mg Metronidazole (Flagyl 500mg Premixed Ivpb -) 100 mls @ 100 mls/hr IVPB Q8H-IV [facility] Last Admin: 01/14/17 10:04 Dose: 100 mls/hr Famotidine/Sodium Chloride (Pepcid 20 Mg Premixed Ivpb -) 50 mls @ 100 mls/hr IVPB BID [facility]ID Last Admin: 01/14/17 10:05 Dose: 100 mls/hr Fluconazole (Diflucan 200 Mg/D5w Premixed Ivpb -) 100 mls @ 100 mls/hr IVPB DAILY [facility] Last Admin: 01/14/17 10:06 Dose: 100 mls/hr Heparin Sodium/Dextrose (Heparin Infusion -) 500 mls @ 20 mls/hr IVPB TITR DAVID ; 1,000 UNITS/HR PRN Reason: Protocol Last Titration: 01/13/17 19:00 Dose: 1,000 units/hr Metoprolol Tartrate (Lopressor Injection -) 5 mg IVPB Q8H-IV [facility] Last Admin: 01/14/17 10:06 Dose: 5 mg Piperacillin Sod/Tazobactam Sod (Zosyn 3.375gm Ivpb (Pre-Docked)) 3.375 gm IVPB Q6H-IV [facility] Last Admin: 01/14/17 15:23 Dose: 3.375 gm ASSESSMENT AND PLAN: Perforated Diverticulitis Intra-abdominal Abscess s/p exploratory laparotomy/sigmoid resection/colostomy Severe Sepsis Acute NSTEMI Acute Kidney Injury Acute Hypoxic Respiratory Failure Atrial Fibrillation h/o DVT/PE Hyperlipidemia - continue antibiotics - pain control - incentive spirometry if possible - will give one dose of lasix today as pt appears overloaded clinically and on CXR with labored breathing - monitor urine output, creatinine - rate controlled - continue anticoagulation - PO when ok with surgery - BiPAP as needed to assist in work of breathing - continue ICU monitoring critical care time spent in reviewing chart, evaluating patient and formulating plan 36 min
[2017-01-14] MEDS: HEPARIN INFUSION - 500 ML IVPB SCH (17:08)
--- NOTE | 2017-01-14 17:40 | PN ---
Progress Note (short form) - Note Progress Note: S: 81 year old female admitted with an acute abdomen, ruptured diverticulitis, sepsis, underwent surgery, known case of hypertension, s/p PTE, s/p abdominal aortic aneurysm dissection, hypercholesterolemia. Patient is more alert and responds to verbal questioning, extremely weak, remains tachycardiac on IV lopressor. Appears to be third spacing the fluids. Has chronic ventricular premature beats. Continues to have low grade fever. Active Medications Generic Name Dose Route Start Last Admin Trade Name Freq PRN Reason Stop Dose Admin Acetaminophen 1,000 mg 01/11/17 18:03 01/13/17 15:37 Ofirmev Injection - IVPB 1,000 mg Q6H PRN Administration FEVER Albuterol/Ipratropium 1 amp 01/11/17 00:00 01/14/17 06:30 Duoneb - NEB 1 amp QIDR DAVID Administration Heparin Sodium (Porcine) 1,000 unit 01/12/17 16:52 Heparin - IVPUSH PRN PRN Heparin Heparin Sodium (Porcine) 5,000 unit 01/12/17 16:52 Heparin - IVPUSH PRN PRN Heparin Hydromorphone HCl 0.5 mg 01/10/17 09:27 01/12/17 18:33 Dilaudid Injection - IVPUSH 0.5 mg Q4H PRN Administration MODERATE PAIN Hydromorphone HCl 1 mg 01/10/17 09:28 01/13/17 06:24 Dilaudid Injection - IVPUSH 1 mg Q4H PRN Administration SEVERE PAIN Metronidazole 100 mls @ 100 mls/hr 01/10/17 02:00 01/14/17 10:04 Flagyl 500mg Premixed Ivpb - IVPB 100 mls/hr Q8H-IV DAVID Administration Famotidine/Sodium Chloride 50 mls @ 100 mls/hr 01/10/17 10:00 01/14/17 10:05 Pepcid 20 Mg Premixed Ivpb - IVPB 100 mls/hr BID DAVID Administration Fluconazole 100 mls @ 100 mls/hr 01/11/17 13:00 01/14/17 10:06 Diflucan 200 Mg/D5w Premixed Ivpb - IVPB 100 mls/hr DAILY DAVID Administration Heparin Sodium/Dextrose 500 mls @ 20 mls/hr 01/12/17 17:00 01/13/17 19:00 Heparin Infusion - IVPB 1,000 units/hr TITR DAVID Titration Protocol 1,000 UNITS/HR Metoprolol Tartrate 5 mg 01/11/17 15:20 01/14/17 10:06 Lopressor Injection - IVPB 5 mg Q8H-IV DAVID Administration Piperacillin Sod/Tazobactam Sod 3.375 gm 01/10/17 15:45 01/14/17 10:05 Zosyn 3.375gm Ivpb (Pre-Docked) IVPB 3.375 gm Q6H-IV DAVID Administration O: 81 year old female is awake and responds to verbal questions. Last Vital Signs Temp Pulse Resp BP Pulse Ox 99.9 F H 96 H- Irregular 16 127/55 98 01/14/17 08:00 01/14/17 11:32 01/14/17 11:32 01/14/17 11:32 01/14/17 10:48 NECK: Supple, no JVD, negative HJR, carotids were equal and upstrokes were normal, no thyromegaly appreciated. HEART: PMI was in the 5th intercostal space, no heaves or thrills, heart sounds are distant. No murmurs or gallops were appreciated. LUNGS: Clear on auscultation bilaterally. ABDOMEN: Bandaged, generalized tenderness on palpation. Cholostomy. EXTREMITIES: No calf tenderness. 1+ ankle edema bilaterally. CBC, BMP 01/14/17 05:30 01/14/17 05:30 Laboratory Results - last 24 hr 01/14/17 01/14/17 01/14/17 05:30 05:30 05:30 WBC 16.2 H RBC 3.39 L Hgb 10.9 Hct 33.3 MCV 98.3 H MCH 32.2 MCHC 32.8 RDW 14.7 Plt Count 219 D MPV 10.1 INR 1.32 H PTT (Actin FS) 60.1 H Sodium 145 Potassium 3.8 Chloride 114 H Carbon Dioxide 22 Anion Gap 9 BUN 43 H Creatinine 1.7 H Creat Clearance w eGFR 28.77 Random Glucose 170 H Calcium 8.0 L Phosphorus 2.6 D Magnesium 2.1 Total Bilirubin 0.7 AST 51 H ALT 28 Alkaline Phosphatase 52 Creatine Kinase Troponin I Total Protein 4.6 L Albumin 1.7 L 01/14/17 05:30 WBC RBC Hgb Hct MCV MCH MCHC RDW Plt Count MPV INR PTT (Actin FS) Sodium Potassium Chloride Carbon Dioxide Anion Gap BUN Creatinine Creat Clearance w eGFR Random Glucose Calcium Phosphorus Magnesium Total Bilirubin AST ALT Alkaline Phosphatase Creatine Kinase 110 Troponin I 1.37 H* Total Protein Albumin Intake & Output 01/11/17 01/12/17 01/13/17 01/14/17 23:59 23:59 23:59 23:59 Intake Total 2816 3895 5156 990 Output Total 1295 780 970 820 Balance 1521 3115 4186 170 Weight 222 lb 3.615 oz 225 lb 1.471 oz 234 lb 5.622 oz 235 lb 8 oz Impression: 1. Sinus tachycardia, etiology: A. Secondary to hypovalemia B. Febrile state 2. Elevated troponins A. Myocardia ischemia B. Sepsis C. Kidney disease 3. Hypertension, currently normotensive 4. History of pulmonary thrombo embolism 5. History of sepsis 6. Ruptured diverticulitis 7. S/p partial colectomy and colostomy Recommendations: 1. Continue current cardiac therapy and if necessary increase dose of IV lopressor 2. Bedside echocardiogram 3. BNP Prognosis: Critical Documentation prepared by Cheyanne Crocker, acting as a manager medical for Jad Thao MD. Addendum:Echocarsiogram reported to have moderate LV enlargement and severe LV systolic dysfunction.(see report). Sinus tachycardia is partly related to low output state. Consider hemodynamic monitoring for fluid management and therapeutic intervention JAD THAO MD
--- NOTE | 2017-01-14 17:50 | PN ---
Progress Note, Physician History of Present Illness: patient starting to improve wbc slightly higher increased urine output mental status better - Current Medication List Current Medications: Active Medications Acetaminophen (Ofirmev Injection -) 1,000 mg IVPB Q6H PRN PRN Reason: FEVER Last Admin: 01/13/17 15:37 Dose: 1,000 mg Albuterol/Ipratropium (Duoneb -) 1 amp NEB QIDR DAVID Last Admin: 01/14/17 12:00 Dose: 1 amp Heparin Sodium (Porcine) (Heparin -) 1,000 unit IVPUSH PRN PRN PRN Reason: Heparin Heparin Sodium (Porcine) (Heparin -) 5,000 unit IVPUSH PRN PRN PRN Reason: Heparin Hydromorphone HCl (Dilaudid Injection -) 0.5 mg IVPUSH Q4H PRN PRN Reason: MODERATE PAIN Last Admin: 01/12/17 18:33 Dose: 0.5 mg Hydromorphone HCl (Dilaudid Injection -) 1 mg IVPUSH Q4H PRN PRN Reason: SEVERE PAIN Last Admin: 01/13/17 06:24 Dose: 1 mg Metronidazole (Flagyl 500mg Premixed Ivpb -) 100 mls @ 100 mls/hr IVPB Q8H-IV DAVID Last Admin: 01/14/17 17:09 Dose: 100 mls/hr Famotidine/Sodium Chloride (Pepcid 20 Mg Premixed Ivpb -) 50 mls @ 100 mls/hr IVPB BID DAVID Last Admin: 01/14/17 10:05 Dose: 100 mls/hr Fluconazole (Diflucan 200 Mg/D5w Premixed Ivpb -) 100 mls @ 100 mls/hr IVPB DAILY [facility] Last Admin: 01/14/17 10:06 Dose: 100 mls/hr Heparin Sodium/Dextrose (Heparin Infusion -) 500 mls @ 20 mls/hr IVPB TITR DAVID ; 1,000 UNITS/HR PRN Reason: Protocol Last Admin: 01/14/17 17:08 Dose: 20 mls/hr Metoprolol Tartrate (Lopressor Injection -) 5 mg IVPB Q8H-IV DAVID Last Admin: 01/14/17 17:07 Dose: 5 mg Piperacillin Sod/Tazobactam Sod (Zosyn 3.375gm Ivpb (Pre-Docked)) 3.375 gm IVPB Q6H-IV DAVID Last Admin: 01/14/17 15:23 Dose: 3.375 gm - Objective Vital Signs: Vital Signs Temperature 100.2 F H 01/14/17 16:00 Pulse Rate 102 H 01/14/17 17:07 Respiratory Rate 18 01/14/17 16:00 Blood Pressure 124/68 01/14/17 17:07 O2 Sat by Pulse Oximetry (%) 94 L 01/14/17 14:30 Constitutional: Yes: No Distress, Calm Cardiovascular: Yes: Regular Rate and Rhythm Respiratory: Yes: On Nasal O2, Poor Air Entry, Rhonchi Gastrointestinal: Yes: Soft, Other (osteomy in place wounds clean) Musculoskeletal: Yes: WNL Extremities: Yes: WNL Edema: LLE: 1+, RLE: 1+ Neurological: Yes: Alert Psychiatric: Yes: Alert Labs: CBC, BMP 01/14/17 05:30 01/14/17 05:30 INR, PTT INR 1.32 (0.82-1.09) H 01/14/17 05:30 - ....Imaging Chest X-ray: Report Reviewed, Image Reviewed Assessment/Plan 81 y/o old with multiple medical problems with perforated bowel post op Perforated bowel Peritonitis Sepsis s/p ex-lap with sigmoid resection, colostomy Resolving JG Lactic acidosis AF h/o DVT/PE wbc trending down plan continue iv abx close watch on the wbc continue antifungal hydration close monitoring as per icu cc time 40 min patient still having fevers
[2017-01-14] MEDS: HYDROmorphone HCL CARPU-JECT 1 MG/1 ML DISP.SYRIN IVPUSH PRN (20:29)
[2017-01-15] MEDS: ALBUTEROL SO4 2.5/IPRATROPIUM 0.5 INH SOL 3 ML VIAL.NEB. NEB SCH ×4 (00:01→18:45)
[2017-01-15] MEDS: METOPROLOL TARTRATE 5 MG/5 ML VIAL IVPB SCH ×3 (01:17→17:07)
[2017-01-15] MEDS: METRONIDAZOLE 500 MG PREMIXED 100 ML IVPB SCH ×3 (01:18→17:08)
[2017-01-15] MEDS: PIPERACILLIN/TAZOB 3.375 GM/50 ML PRE-DOCKED IVPB SCH ×3 (02:34→16:38)
[2017-01-15 06:26] LABS: MCH 32.1 pg (25.7-33.7); MCHC 32.9 g/dl (32.0-36.0); MEAN CELL VOLUME 97.6 fl (80-96); MEAN PLT VOLUME 9.9 fl (7.5-11.1); PLATELET COUNT 289 K/MM3 (134-434); RDW 14.4 % (11.6-15.6); WHITE BLOOD COUNT 25.3 K/mm3 (4.0-10.0)
[2017-01-15 06:39] LABS: INR 1.5 (0.82-1.09); PROTHROMBIN TIME (PATIENT) 16.6 SEC (9.98-11.88)
[2017-01-15 06:41] LABS: ACTIVATED PTT 48.8 SECONDS (26.9-34.4)
[2017-01-15 06:47] LABS: ALBUMIN 1.6 g/dl (3.4-5.0); ANION GAP 8 (8-16); BILIRUBIN,TOTAL 0.7 mg/dL (0.2-1.0); CALCIUM 8.4 mg/dL (8.5-10.1); CO2 22 mmol/L (21-32); CREATININE 1.6 mg/dL (0.55-1.02); GLUCOSE,RANDOM 110 mg/dL (74-106); MAGNESIUM 1.8 mg/dL (1.8-2.4); PHOSPHOROUS 2.3 mg/dL (2.5-4.9); SGOT/AST 39 U/L (15-37); SGPT/ALT 26 U/L (12-78); TOT PROT 4.5 g/dl (6.4-8.2)
[2017-01-15 07:02] LABS: ALK PHOS 52 U/L (45-117); CPK 46 IU/L (26-192)
[2017-01-15 07:49] LABS: TROPONIN I 0.88 ng/ml (0.00-0.05)
[2017-01-15] MEDS: HEPARIN NA (PORCINE) 5,000 UNITS/ML 1ML VIAL IVPUSH PRN ×3 (08:00→21:52)
[2017-01-15] MEDS ORDERED: MAGNESIUM SULF 50% (8.12 MEQ/2 ML-1 GM VIAL) IVPB ONE (09:00)
[2017-01-15] MEDS ORDERED: POTASSIUM PHOSPHATE 30 MM in DEXTROSE 5%-WATER - 250 ML IVPB ONE (09:00)
[2017-01-15] MEDS: FLUCONAZOLE 200 MG/D5W 100 ML IVPB SCH (09:52)
[2017-01-15] MEDS: FAMOTIDINE 20 MG/50 ML IVPB 50 ML IVPB SCH ×2 (09:53→21:09)
[2017-01-15 10:01] LABS: PLATELET ESTIMATE ADEQUATE (NORMAL)
[2017-01-15 10:36] LABS: URINE APPEARANCE CLEAR; URINE BILIRUBIN NEGATIVE (NEGATIVE); URINE BLOOD 2+ (NEGATIVE); URINE COLOR DKYELLOW; URINE GLUCOSE (UA) NEGATIVE (NEGATIVE); URINE KETONE NEGATIVE (NEGATIVE); URINE LEUK ESTERASE TRACE (NEGATIVE); URINE NITRITE NEGATIVE (NEGATIVE); URINE UROBILINOGEN NEGATIVE mg/dL (0.2-1.0)
[2017-01-15 10:40] LABS: URINE PROTEIN 1+ (NEGATIVE)
[2017-01-15 10:42] LABS: URINE MUCUS RARE; URINE RBC 26 /hpf (0-3); URINE WBC 6 /hpf (3-5)
--- NOTE | 2017-01-15 11:46 | PN ---
Progress Note (short form) - Note Progress Note: Attending Surgeon POD #6 Remains in ICU; extubated ; tolerating liquids; having BM's per ostomy and rectum VSS afebrile abdomen-soft; incision c/d/i; open and granulating; non tender WBC 25 JAMES-murky w/ minimal drainage IMP: s/p Hartmans procedure for perforated diverticulitis w/abscess formation and increasing WBC PLAN: Consider repeating CT scan a/p to look for collection etc.; continue as per ICU/ID. Taqueria Prado MD FACS
--- NOTE | 2017-01-15 12:26 | PN ---
Teaching Attending Note Name of Resident: Arya Cook ATTENDING PHYSICIAN STATEMENT I saw and evaluated the patient. I reviewed the resident's note and discussed the case with the resident. I agree with the resident's findings and plan as documented. SUBJECTIVE: Patient seen and examined at bedside. More awake and alert today. Interactive. Tolerating some liquid intake. Denies CP or SOB. No pressors. Noted elevated WBC. Intake & Output 01/12/17 01/13/17 01/14/17 01/15/17 23:59 23:59 23:59 23:59 Intake Total 3895 5156 2930 390 Output Total 326 365 7378 600 Balance 3115 4186 1480 -210 Weight 225 lb 1.471 oz 234 lb 5.622 oz 235 lb 8 oz 236 lb 8.896 oz Last Vital Signs Temp Pulse Resp BP Pulse Ox 98.3 F 100 H 20 139/67 96 01/15/17 10:00 01/15/17 11:14 01/15/17 11:14 01/15/17 11:14 01/15/17 10:24 Active Medications Acetaminophen (Ofirmev Injection -) 1,000 mg IVPB Q6H PRN PRN Reason: FEVER Last Admin: 01/13/17 15:37 Dose: 1,000 mg Albuterol/Ipratropium (Duoneb -) 1 amp NEB QIDR DAVID Last Admin: 01/15/17 12:16 Dose: 1 amp Heparin Sodium (Porcine) (Heparin -) 1,000 unit IVPUSH PRN PRN PRN Reason: Heparin Heparin Sodium (Porcine) (Heparin -) 5,000 unit IVPUSH PRN PRN PRN Reason: Heparin Hydromorphone HCl (Dilaudid Injection -) 0.5 mg IVPUSH Q4H PRN PRN Reason: MODERATE PAIN Last Admin: 01/14/17 20:29 Dose: 0.5 mg Metronidazole (Flagyl 500mg Premixed Ivpb -) 100 mls @ 100 mls/hr IVPB Q8H-IV DAVID Last Admin: 01/15/17 09:53 Dose: 100 mls/hr Famotidine/Sodium Chloride (Pepcid 20 Mg Premixed Ivpb -) 50 mls @ 100 mls/hr IVPB BID DAVID Last Admin: 01/15/17 09:53 Dose: 100 mls/hr Fluconazole (Diflucan 200 Mg/D5w Premixed Ivpb -) 100 mls @ 100 mls/hr IVPB DAILY DAVID Last Admin: 01/15/17 09:52 Dose: 100 mls/hr Heparin Sodium/Dextrose (Heparin Infusion -) 500 mls @ 20 mls/hr IVPB TITR DAVID ; 1,000 UNITS/HR PRN Reason: Protocol Last Admin: 01/14/17 17:08 Dose: 20 mls/hr Potassium Phosphate 30 mm/ (Dextrose) 260 mls @ 62.5 mls/hr IVPB ONCE ONE Stop: 01/15/17 13:09 Metoprolol Tartrate (Lopressor Injection -) 5 mg IVPB Q8H-IV DAVID Last Admin: 01/15/17 09:56 Dose: 5 mg Piperacillin Sod/Tazobactam Sod (Zosyn 3.375gm Ivpb (Pre-Docked)) 3.375 gm IVPB Q6H-IV DAVID Last Admin: 01/15/17 09:53 Dose: 3.375 gm Constitutional: Yes: Awake and alert, Mildly tachypneic at rest Eyes: Yes: (-) Pallor (-) Icterus HENT: Yes: Normocephalic Neck: Yes: Supple, Trachea Midline Cardiovascular: Yes: Tachycardia, Pulse Irregular, S1, S2 Respiratory: Yes: Bilateral scattered Rhonchi and crackles Gastrointestinal: Yes: Soft, (+) BS, brownish discharge from drain, incision C/D /I, appropriately tender, ostomy pink with some output Genitourinary: Yes: Jennings Present Extremities: Yes: WNL Edema: No Integumentary: Yes: Tenting Wound/Incision: Yes: Clean/Dry Neurological: Yes: Alert, non-focal Psychiatric: Yes: Alert, Oriented (to self and place) Labs: Laboratory Results - last 24 hr 01/15/17 01/15/17 01/15/17 05:45 05:45 05:45 WBC 25.3 H D RBC 3.26 L Hgb 10.5 L Hct 31.8 L MCV 97.6 H MCH 32.1 MCHC 32.9 RDW 14.4 Plt Count 289 D MPV 9.9 Neutrophils % 77.0 Lymphocytes % 4.0 L D Monocytes % 3.0 L Eosinophils % 0.0 Basophils % 0.0 Band Neutrophils 14.0 H Myelocytes 2 Differential Comment Manual diff done Platelet Estimate Adequate INR 1.50 H PTT (Actin FS) 48.8 H Sodium 147 H Potassium 3.8 Chloride 117 H Carbon Dioxide 22 Anion Gap 8 BUN 40 H Creatinine 1.6 H Creat Clearance w eGFR 30.86 Random Glucose 110 H D Calcium 8.4 L Phosphorus 2.3 L Magnesium 1.8 Total Bilirubin 0.7 AST 39 H D ALT 26 Alkaline Phosphatase 52 Creatine Kinase 46 Troponin I 0.88 H* B-Natriuretic Peptide Total Protein 4.5 L Albumin 1.6 L Urine Color Urine Appearance Urine pH Urine Protein Urine Glucose (UA) Urine Ketones Urine Blood Urine Nitrite Urine Bilirubin Urine Urobilinogen Ur Leukocyte Esterase Urine RBC Urine WBC Urine Mucus 01/15/17 01/15/17 05:45 09:15 WBC RBC Hgb Hct MCV MCH MCHC RDW Plt Count MPV Neutrophils % Lymphocytes % Monocytes % Eosinophils % Basophils % Band Neutrophils Myelocytes Differential Comment Platelet Estimate INR PTT (Actin FS) Sodium Potassium Chloride Carbon Dioxide Anion Gap BUN Creatinine Creat Clearance w eGFR Random Glucose Calcium Phosphorus Magnesium Total Bilirubin AST ALT Alkaline Phosphatase Creatine Kinase Troponin I B-Natriuretic Peptide 43121.7 H Total Protein Albumin Urine Color Dkyellow Urine Appearance Clear Urine pH 5.0 Urine Protein 1+ H Urine Glucose (UA) Negative Urine Ketones Negative Urine Blood 2+ H Urine Nitrite Negative Urine Bilirubin Negative Urine Urobilinogen Negative Ur Leukocyte Esterase Trace Urine RBC 26 Urine WBC 6 Urine Mucus Rare Assessment/Plan Perforated diverticulitis S/P Sigmoid resection with colostomy. Diverticulosis Suspected Pulmonary vascular congestion Peritonitis History of PE/DVT JG suspected ABX per ID IVF PO as tolerated Strict I&O Pain control Incentive Spirometry if able O2 as needed IV Heparin May require additional imaging in the AM if WBC continues to rise Dr Anglin Critical Care Time/MDM Note Total Critical Care Time: 35 Critical Care Statement: The care of this patient involved high complexity decision making to prevent further life threatening deterioration of the patient 's condition and/or to evaluate & treat vital organ system(s) failure or risk of failure.
--- NOTE | 2017-01-15 13:26 | PN ---
Progress Note, Physician History of Present Illness: patient seen and examined at bedside feels better today WBC count continues to rise had large BM overnight from ostomy and from rectum tolerated sips of clears yesterday remains febrile - Current Medication List Current Medications: Active Medications Acetaminophen (Ofirmev Injection -) 1,000 mg IVPB Q6H PRN PRN Reason: FEVER Last Admin: 01/13/17 15:37 Dose: 1,000 mg Albuterol/Ipratropium (Duoneb -) 1 amp NEB QIDR DAVID Last Admin: 01/15/17 12:16 Dose: 1 amp Heparin Sodium (Porcine) (Heparin -) 1,000 unit IVPUSH PRN PRN PRN Reason: Heparin Heparin Sodium (Porcine) (Heparin -) 5,000 unit IVPUSH PRN PRN PRN Reason: Heparin Hydromorphone HCl (Dilaudid Injection -) 0.5 mg IVPUSH Q4H PRN PRN Reason: MODERATE PAIN Last Admin: 01/14/17 20:29 Dose: 0.5 mg Metronidazole (Flagyl 500mg Premixed Ivpb -) 100 mls @ 100 mls/hr IVPB Q8H-IV DAVID Last Admin: 01/15/17 09:53 Dose: 100 mls/hr Famotidine/Sodium Chloride (Pepcid 20 Mg Premixed Ivpb -) 50 mls @ 100 mls/hr IVPB BID DAVID Last Admin: 01/15/17 09:53 Dose: 100 mls/hr Fluconazole (Diflucan 200 Mg/D5w Premixed Ivpb -) 100 mls @ 100 mls/hr IVPB DAILY [facility] Last Admin: 01/15/17 09:52 Dose: 100 mls/hr Heparin Sodium/Dextrose (Heparin Infusion -) 500 mls @ 20 mls/hr IVPB TITR DAVID ; 1,000 UNITS/HR PRN Reason: Protocol Last Admin: 01/14/17 17:08 Dose: 20 mls/hr Metoprolol Tartrate (Lopressor Injection -) 5 mg IVPB Q8H-IV DAVID Last Admin: 01/15/17 09:56 Dose: 5 mg Piperacillin Sod/Tazobactam Sod (Zosyn 3.375gm Ivpb (Pre-Docked)) 3.375 gm IVPB Q6H-IV DAVID Last Admin: 01/15/17 09:53 Dose: 3.375 gm - Objective Vital Signs: Vital Signs Temperature 98.3 F 01/15/17 10:00 Pulse Rate 100 H 01/15/17 12:00 Respiratory Rate 20 01/15/17 12:00 Blood Pressure 139/67 01/15/17 12:00 O2 Sat by Pulse Oximetry (%) 96 01/15/17 10:24 onstitutional: Yes: Other (tired appearing but easily arousable) Eyes: Yes: Other (right pupils slightly larger then left but both are sluggishly reactive to light) HENT: Yes: Normocephalic Neck: Yes: Supple, Trachea Midline Cardiovascular: Yes: Tachycardia, Pulse Irregular, S1, S2 Respiratory: Yes: Other (scattered crackles less so than yesterday) Gastrointestinal: Yes: Soft, +Bowel Sounds, Other (incision C/D/I abdomen soft appropriately tender but less so than yesterday ostomy pink with good function. JAMES drain with dark brown/black murky drainage) Genitourinary: Yes: Jennings Present Extremities: Yes: WNL Edema: yes bilateral lower extremity trace pitting edema Wound/Incision: Yes: Clean/Dry Neurological: Yes: Alert, Other (tired appearing) Psychiatric: Yes: Alert, Oriented (to self and place-knows she is in the hospital) Labs: CBC, BMP 01/15/17 05:45 01/15/17 05:45 INR, PTT INR 1.50 (0.82-1.09) H 01/15/17 05:45 - ....Imaging Other: Report Reviewed (Echo LV mildly dilated LVEF severely reduced hypokinesis of LV) Assessment/Plan 81F with a history of diverticulosis presents to the ED with perforated diverticulitis now post op day 3 s/p sigmoid resection with colostomy. perforated diverticulitis: patient is currently septic with worsening leukocystosis and tachycardia. Source is likely from the abdomen. f/u abdominal cultures-Perdomo sensitive E. Coli Will consider CT scan to rule out collection, abscess or any other intra- abdominal process if patient does not improve by tomorrow. will consider culturing JAMES drainage as it is dark and murky now still spiking fevers Tmax 100.4 yesterday at 8pm will send BCx-no growth to date continue zosyn flagyl and diflucan per ID f/u ID central line for CVP monitoring placed 01/12/2017 pain control PRN IV Ofirmev for fevers and pain Post-op NSTEMI: troponin remains elevated cardiology consult appreciated likely from a combination of demand and decreased clearance from acute kidney injury stop trending troponins per cardiology systolic CHF with severely reduced EF: monitor for the need for diuresis daily cardiology follow up monitor CVP history of DVT/PE: coumadin on hold for now on heparin gtt monitor PTT per protocol will speak to cardiology about starting bridge to coumadin JG: continues to improve Creatinine 1.6 today continue IVF continue to trend post-op respiratory failure: improving BiPAP PRN wean off venti mask placed on nasal cannula today and tolerating give lasix today for fluid overload Will get BNP with morning labs per cardiology Afib: continue rate control with metoprolol 5mg IV q8h continue heparin gtt HLD: not on medications at this time will restart lipitor at home dose when appropriate FEN: stop IVF replete for hypokalemia replete for hypophosphatemia CLD PPx: SCDs on heparin gtt for full dose anticoagulation Pepcid PT consult when able to participate incentive spirometry CCTime 35 min
--- NOTE | 2017-01-15 15:24 | PN ---
Progress Note, Physician History of Present Illness: patient still not doing well wbc has jumped up mental status slightly worse than yesterday wound stable - Current Medication List Current Medications: Active Medications Acetaminophen (Ofirmev Injection -) 1,000 mg IVPB Q6H PRN PRN Reason: FEVER Last Admin: 01/13/17 15:37 Dose: 1,000 mg Albuterol/Ipratropium (Duoneb -) 1 amp NEB QIDR DAVID Last Admin: 01/15/17 12:16 Dose: 1 amp Heparin Sodium (Porcine) (Heparin -) 1,000 unit IVPUSH PRN PRN PRN Reason: Heparin Heparin Sodium (Porcine) (Heparin -) 5,000 unit IVPUSH PRN PRN PRN Reason: Heparin Hydromorphone HCl (Dilaudid Injection -) 0.5 mg IVPUSH Q4H PRN PRN Reason: MODERATE PAIN Last Admin: 01/14/17 20:29 Dose: 0.5 mg Metronidazole (Flagyl 500mg Premixed Ivpb -) 100 mls @ 100 mls/hr IVPB Q8H-IV DAVID Last Admin: 01/15/17 09:53 Dose: 100 mls/hr Famotidine/Sodium Chloride (Pepcid 20 Mg Premixed Ivpb -) 50 mls @ 100 mls/hr IVPB BID DAVID Last Admin: 01/15/17 09:53 Dose: 100 mls/hr Fluconazole (Diflucan 200 Mg/D5w Premixed Ivpb -) 100 mls @ 100 mls/hr IVPB DAILY [facility]ID Last Admin: 01/15/17 09:52 Dose: 100 mls/hr Heparin Sodium/Dextrose (Heparin Infusion -) 500 mls @ 20 mls/hr IVPB TITR DAVID ; 1,000 UNITS/HR PRN Reason: Protocol Last Admin: 01/14/17 17:08 Dose: 20 mls/hr Metoprolol Tartrate (Lopressor Injection -) 5 mg IVPB Q8H-IV DAVID Last Admin: 01/15/17 09:56 Dose: 5 mg Piperacillin Sod/Tazobactam Sod (Zosyn 3.375gm Ivpb (Pre-Docked)) 3.375 gm IVPB Q6H-IV DAVID Last Admin: 01/15/17 09:53 Dose: 3.375 gm - Objective Vital Signs: Vital Signs Temperature 98.3 F 08/03/17 10:00 Pulse Rate 100 H 01/15/17 12:00 Respiratory Rate 20 01/15/17 12:00 Blood Pressure 139/67 01/15/17 12:00 O2 Sat by Pulse Oximetry (%) 96 01/15/17 10:24 Constitutional: Yes: Other Cardiovascular: Yes: Tachycardia, Pulse Irregular Respiratory: Yes: On Nasal O2, Poor Air Entry, Rhonchi Gastrointestinal: Yes: Other (absent bowel sounds osteomy in place wounds looked at) Musculoskeletal: Yes: Other Extremities: Yes: Other Wound/Incision: Yes: Other Neurological: Yes: Alert, Other Psychiatric: Yes: Other Labs: CBC, BMP 01/15/17 05:45 01/15/17 05:45 INR, PTT INR 1.50 (0.82-1.09) H 01/15/17 05:45 Assessment/Plan 81 y/o old with multiple medical problems with perforated bowel post op Perforated bowel Peritonitis Sepsis s/p ex-lap with sigmoid resection, colostomy Resolving JG Lactic acidosis AF h/o DVT/PE patients ng tube has been removed wbc has jumpred up quite a bit there are couple of thing either it is the abd or it can be the lungs as the ng tube which was in lungs now pulled out plan dillon cx the patient send cx from the [facility] drain ct scan of chest abd and pelvis will broaden coverage close watch any drainage from the wounds please culture that also very close watch rest as per icu cc time 45 min
[2017-01-15] MEDS ORDERED: VANCOMYCIN 1,250 MG in DEXTROSE 5%-WATER - 250 ML IVPB ONE (15:28)
[2017-01-15] MEDS: MEROPENEM 1 GM in DEXTROSE 5%-WATER - 100 ML IVPB SCH (17:04)
[2017-01-15] MEDS: HEPARIN INFUSION - 500 ML IVPB SCH (17:06)
--- NOTE | 2017-01-15 19:53 | PN ---
Progress Note (short form) - Note Progress Note: S: 81 year old female admitted with an acute abdomen, ruptured diverticulitis, sepsis, underwent surgery, known case of hypertension, s/p PTE, s/p abdominal aortic aneurysm dissection and suprarenal AAA, hypercholesterolemia. Patient remains lethargic,mildly tachypneic,persistant sinus tachycardia with wide complex premature beats. Active Medications Generic Name Dose Route Start Last Admin Trade Name Freq PRN Reason Stop Dose Admin Acetaminophen 1,000 mg 01/11/17 18:03 01/13/17 15:37 Ofirmev Injection - IVPB 1,000 mg Q6H PRN Administration FEVER Albuterol/Ipratropium 1 amp 01/11/17 00:00 01/15/17 18:45 Duoneb - NEB 1 amp QIDR DAVID Administration Heparin Sodium (Porcine) 1,000 unit 01/12/17 16:52 01/15/17 18:40 Heparin - IVPUSH 1,000 unit PRN PRN Administration Heparin Heparin Sodium (Porcine) 5,000 unit 01/12/17 16:52 Heparin - IVPUSH PRN PRN Heparin Hydromorphone HCl 0.5 mg 01/10/17 09:27 01/14/17 20:29 Dilaudid Injection - IVPUSH 0.5 mg Q4H PRN Administration MODERATE PAIN Metronidazole 100 mls @ 100 mls/hr 01/10/17 02:00 01/15/17 17:08 Flagyl 500mg Premixed Ivpb - IVPB 100 mls/hr Q8H-IV DAVID Administration Famotidine/Sodium Chloride 50 mls @ 100 mls/hr 01/10/17 10:00 01/15/17 09:53 Pepcid 20 Mg Premixed Ivpb - IVPB 100 mls/hr BID DAVID Administration Fluconazole 100 mls @ 100 mls/hr 01/11/17 13:00 01/15/17 09:52 Diflucan 200 Mg/D5w Premixed Ivpb - IVPB 100 mls/hr DAILY DAVID Administration Heparin Sodium/Dextrose 500 mls @ 20 mls/hr 01/12/17 17:00 01/15/17 18:40 Heparin Infusion - IVPB 1,200 units/hr TITR DAVID Titration Protocol 1,000 UNITS/HR Meropenem 1 gm/ Dextrose 100 mls @ 100 mls/hr 01/15/17 17:00 01/15/17 17:04 IVPB 100 mls/hr BID@0500,1700 DAVID Administration Protocol Metoprolol Tartrate 5 mg 01/11/17 15:20 01/15/17 17:07 Lopressor Injection - IVPB 5 mg Q8H-IV DAVID Administration O: 81 year old female is awake and responds to verbal questions. Vital Signs Period Temp Pulse Resp BP Sys/Riley Pulse Ox Last 24 Hr 98.3 F-100.4 F 97-123 17-22 115-156/53-97 94-98 NECK: Supple, no JVD,+ve HJR, carotids were equal and upstrokes were normal, no thyromegaly appreciated. HEART: PMI was in the 5th intercostal space, no heaves or thrills, heart sounds are distant. Grade I/ systolic murmur at the 2nd rt.ICS,no gallops were appreciated. LUNGS: fine creps. right base ABDOMEN: Bandaged, generalized tenderness on palpation. Cholostomy. EXTREMITIES: No calf tenderness. 1+ ankle edema bilaterally. Laboratory Last Values Abnormal Lab Results 01/15/17 01/15/17 01/15/17 05:45 05:45 05:45 WBC 25.3 H D RBC 3.26 L Hgb 10.5 L Hct 31.8 L MCV 97.6 H Lymphocytes % 4.0 L D Monocytes % 3.0 L Band Neutrophils 14.0 H INR 1.50 H PTT (Actin FS) 48.8 H Sodium 147 H Chloride 117 H BUN 40 H Creatinine 1.6 H Random Glucose 110 H D Calcium 8.4 L Phosphorus 2.3 L AST 39 H D Troponin I 0.88 H* B-Natriuretic Peptide Total Protein 4.5 L Albumin 1.6 L Urine Protein Urine Blood 01/15/17 01/15/17 01/15/17 05:45 09:15 12:00 WBC RBC Hgb Hct MCV Lymphocytes % Monocytes % Band Neutrophils INR PTT (Actin FS) 46.8 H Sodium Chloride BUN Creatinine Random Glucose Calcium Phosphorus AST Troponin I B-Natriuretic Peptide 64956.7 H Total Protein Albumin Urine Protein 1+ H Urine Blood 2+ H I Impression: 1. Severe LV systolic dysfunction. 2. Marked elevation of BNP. 3. Elevated Troponins. 4. Persistant sinus tachycardia. 4. History of pulmonary thrombo embolism 5. Sepsis 6. Ruptured diverticulitis 7. S/p partial colectomy and colostomy Recommendations: 1.Consider hemodynamic monitoring. 2.Close f/u of BMP(elevated serum Na). Prognosis: Critical. JOSUÉ THAO MD
[2017-01-16] MEDS: ALBUTEROL SO4 2.5/IPRATROPIUM 0.5 INH SOL 3 ML VIAL.NEB. NEB SCH ×4 (00:17→17:20)
[2017-01-16] MEDS: METOPROLOL TARTRATE 5 MG/5 ML VIAL IVPB SCH ×3 (02:50→19:08)
[2017-01-16] MEDS: METRONIDAZOLE 500 MG PREMIXED 100 ML IVPB SCH ×3 (02:51→19:07)
[2017-01-16] MEDS: MEROPENEM 1 GM in DEXTROSE 5%-WATER - 100 ML IVPB SCH ×2 (05:12→19:08)
[2017-01-16 06:05] LABS: MCH 31.4 pg (25.7-33.7); MCHC 31.7 g/dl (32.0-36.0); MEAN CELL VOLUME 98.9 fl (80-96); MEAN PLT VOLUME 9.8 fl (7.5-11.1); PLATELET COUNT 379 K/MM3 (134-434); RDW 14.8 % (11.6-15.6); WHITE BLOOD COUNT 29.7 K/mm3 (4.0-10.0)
[2017-01-16] MEDS ORDERED: PT OWN MED DRAWER 7, Y5N ONE ×3 (06:07→19:05)
[2017-01-16 06:33] LABS: INR 1.48 (0.82-1.09); PROTHROMBIN TIME (PATIENT) 16.4 SEC (9.98-11.88)
[2017-01-16 06:36] LABS: ACTIVATED PTT 30.2 SECONDS (26.9-34.4)
[2017-01-16 06:43] LABS: ALBUMIN 1.7 g/dl (3.4-5.0); ANION GAP 10 (8-16); CALCIUM 8.7 mg/dL (8.5-10.1); CO2 22 mmol/L (21-32); GLUCOSE,RANDOM 120 mg/dL (74-106); MAGNESIUM 2.2 mg/dL (1.8-2.4); PHOSPHOROUS 3.3 mg/dL (2.5-4.9); SGOT/AST 32 U/L (15-37)
[2017-01-16 06:45] LABS: ALK PHOS 63 U/L (45-117); BILIRUBIN,TOTAL 0.7 mg/dL (0.2-1.0); CREATININE 1.3 mg/dL (0.55-1.02); SGPT/ALT 24 U/L (12-78); TOT PROT 4.7 g/dl (6.4-8.2)
--- NOTE | 2017-01-16 08:37 | PN ---
Progress Note (short form) - Note Progress Note: Attending Surgeon POD #7 No c/o; tolerating liquids VSS T99.9 Chest-congested w/rhonchi abdo-soft; nt + ostomy function WBC 29; renal function improving JAMES minimal Antibiotics were changed yesterday IMP: POD # 7 s/p Antoine PLAN: Continue present tx; possible CT today Dr. Terry Caraballo will cover for me through 01/19/17 for any issues. Taqueria Prado MD FACS
--- NOTE | 2017-01-16 08:58 | PN ---
Progress Note, Physician Chief Complaint: Not feeling well History of Present Illness: Sepsis not getting better - Current Medication List Current Medications: Active Medications Acetaminophen (Ofirmev Injection -) 1,000 mg IVPB Q6H PRN PRN Reason: FEVER Last Admin: 01/13/17 15:37 Dose: 1,000 mg Albuterol/Ipratropium (Duoneb -) 1 amp NEB QIDR DAVID Last Admin: 01/16/17 05:28 Dose: 1 amp Heparin Sodium (Porcine) (Heparin -) 1,000 unit IVPUSH PRN PRN PRN Reason: Heparin Last Admin: 01/15/17 18:40 Dose: 1,000 unit Heparin Sodium (Porcine) (Heparin -) 5,000 unit IVPUSH PRN PRN PRN Reason: Heparin Last Admin: 01/15/17 21:52 Dose: 5,000 unit Hydromorphone HCl (Dilaudid Injection -) 0.5 mg IVPUSH Q4H PRN PRN Reason: MODERATE PAIN Last Admin: 01/14/17 20:29 Dose: 0.5 mg Metronidazole (Flagyl 500mg Premixed Ivpb -) 100 mls @ 100 mls/hr IVPB Q8H-IV [facility] Last Admin: 01/16/17 02:51 Dose: 100 mls/hr Famotidine/Sodium Chloride (Pepcid 20 Mg Premixed Ivpb -) 50 mls @ 100 mls/hr IVPB BID [facility] Last Admin: 01/15/17 21:09 Dose: 100 mls/hr Fluconazole (Diflucan 200 Mg/D5w Premixed Ivpb -) 100 mls @ 100 mls/hr IVPB DAILY [facility] Last Admin: 01/15/17 09:52 Dose: 100 mls/hr Heparin Sodium/Dextrose (Heparin Infusion -) 500 mls @ 20 mls/hr IVPB TITR DAVID ; 1,000 UNITS/HR PRN Reason: Protocol Last Titration: 01/15/17 21:52 Dose: 1,350 units/hr Meropenem 1 gm/ Dextrose 100 mls @ 100 mls/hr IVPB BID@0500,1700 DAVID PRN Reason: Protocol Last Admin: 01/16/17 05:12 Dose: 100 mls/hr Metoprolol Tartrate (Lopressor Injection -) 5 mg IVPB Q8H-IV [facility] Last Admin: 01/16/17 02:50 Dose: 5 mg Potassium Chloride (Potassium Chloride 20 Meq Premix Ivpb -) 20 meq IVPB Q60M DAVID Stop: 01/16/17 09:46 - Objective Vital Signs: Vital Signs Temperature 99.9 F H 01/16/17 06:00 Pulse Rate 100 H 01/16/17 06:00 Respiratory Rate 16 01/16/17 06:00 Blood Pressure 111/67 01/16/17 06:00 O2 Sat by Pulse Oximetry (%) 94 L 01/16/17 04:20 Constitutional: Yes: Moderate Distress Eyes: Yes: WNL HENT: Yes: WNL Neck: Yes: Supple Cardiovascular: Yes: Pulse Irregular Respiratory: Yes: On Nasal O2 Gastrointestinal: Yes: Hypoactive Bowel Sounds Genitourinary: Yes: Jennings Present Neurological: Yes: Alert Labs: CBC, BMP 01/16/17 05:35 01/16/17 05:35 INR, PTT INR 1.48 (0.82-1.09) H 01/16/17 05:35 Assessment/Plan R/O abscess ,gallium scan Case discussed with Dr Prado and Dr Vivas
[2017-01-16] MEDS: FLUCONAZOLE 200 MG/D5W 100 ML IVPB SCH (09:27)
[2017-01-16] MEDS: FAMOTIDINE 20 MG/50 ML IVPB 50 ML IVPB SCH ×2 (09:27→22:43)
[2017-01-16] MEDS ORDERED: POTASSIUM CHLORIDE 20 MEQ PREMIX IVPB 100 ML IVPB SCH ×2 (10:00→13:00)
--- NOTE | 2017-01-16 10:10 | PN ---
Progress Note (short form) - Note Progress Note: S: 81 year old female admitted with an acute abdomen, ruptured diverticulitis, sepsis, underwent surgery, known case of hypertension, s/p PTE, s/p abdominal aortic aneurysm dissection and suprarenal AAA, hypercholesterolemia. Patient is lethargic but arousable, appears tachypneic, heart rate has improved , no ectopic beats were noted. Active Medications Generic Name Dose Route Start Last Admin Trade Name Freq PRN Reason Stop Dose Admin Acetaminophen 1,000 mg 01/11/17 18:03 01/13/17 15:37 Ofirmev Injection - IVPB 1,000 mg Q6H PRN Administration FEVER Albuterol/Ipratropium 1 amp 01/11/17 00:00 01/16/17 05:28 Duoneb - NEB 1 amp QIDR DAVID Administration Heparin Sodium (Porcine) 1,000 unit 01/12/17 16:52 01/15/17 18:40 Heparin - IVPUSH 1,000 unit PRN PRN Administration Heparin Heparin Sodium (Porcine) 5,000 unit 01/12/17 16:52 01/15/17 21:52 Heparin - IVPUSH 5,000 unit PRN PRN Administration Heparin Hydromorphone HCl 0.5 mg 01/10/17 09:27 01/14/17 20:29 Dilaudid Injection - IVPUSH 0.5 mg Q4H PRN Administration MODERATE PAIN Metronidazole 100 mls @ 100 mls/hr 01/10/17 02:00 01/16/17 09:28 Flagyl 500mg Premixed Ivpb - IVPB 100 mls/hr Q8H-IV DAVID Administration Famotidine/Sodium Chloride 50 mls @ 100 mls/hr 01/10/17 10:00 01/16/17 09:27 Pepcid 20 Mg Premixed Ivpb - IVPB 100 mls/hr BID DAVID Administration Fluconazole 100 mls @ 100 mls/hr 01/11/17 13:00 01/16/17 09:27 Diflucan 200 Mg/D5w Premixed Ivpb - IVPB 100 mls/hr DAILY DAVID Administration Heparin Sodium/Dextrose 500 mls @ 20 mls/hr 01/12/17 17:00 01/16/17 08:00 Heparin Infusion - IVPB 1,500 units/hr TITR DAVID Titration Protocol 1,000 UNITS/HR Meropenem 1 gm/ Dextrose 100 mls @ 100 mls/hr 01/15/17 17:00 01/16/17 05:12 IVPB 100 mls/hr BID@0500,1700 DAVID Administration Protocol Metoprolol Tartrate 5 mg 01/11/17 15:20 01/16/17 09:29 Lopressor Injection - IVPB 5 mg Q8H-IV DAVID Administration Potassium Chloride 20 meq 01/16/17 10:00 Potassium Chloride 20 Meq Premix Ivpb - IVPB 01/16/17 11:01 Q60M DAVID O: 81 year old female was in no acute distress, no pallor, cyanosis, clubbing, or jaundice. Last Vital Signs Temp Pulse Resp BP Pulse Ox 99.9 F H 106 H 16 131/58 94 L 01/16/17 06:00 01/16/17 09:29 01/16/17 06:00 01/16/17 09:29 01/16/17 04:20 Neck: Supple, no JVD, slightly positive HJR, carotids were equal and upstrokes were normal, no thyromegaly appreciated. Heart: PMI was in the 5th intercostal space, no heaves or thrills, S1 and S2 were normal. No murmurs or gallops were appreciated. Lungs: Clear on auscultation bilaterally. Abdomen: Not examined because of dressing. Extremities: No calf tenderness or dependent edema. CBC, BMP 01/16/17 05:35 01/16/17 05:35 Laboratory Results - last 24 hr 01/15/17 01/15/17 01/15/17 09:15 12:00 20:03 WBC RBC Hgb Hct MCV MCH MCHC RDW Plt Count MPV INR PTT (Actin FS) 46.8 H 35.5 H Sodium Potassium Chloride Carbon Dioxide Anion Gap BUN Creatinine Creat Clearance w eGFR Random Glucose Calcium Phosphorus Magnesium Total Bilirubin AST ALT Alkaline Phosphatase Total Protein Albumin Urine Color Dkyellow Urine Appearance Clear Urine pH 5.0 Ur Specific [place] 1.015 Urine Protein 1+ H Urine Glucose (UA) Negative Urine Ketones Negative Urine Blood 2+ H Urine Nitrite Negative Urine Bilirubin Negative Urine Urobilinogen Negative Ur Leukocyte Esterase Trace Urine RBC 26 Urine WBC 6 Urine Mucus Rare 01/16/17 01/16/17 01/16/17 05:35 05:35 05:35 WBC 29.7 H RBC 3.38 L Hgb 10.6 L Hct 33.4 MCV 98.9 H MCH 31.4 MCHC 31.7 L RDW 14.8 Plt Count 379 D MPV 9.8 INR 1.48 H PTT (Actin FS) 30.2 Sodium 145 Potassium 3.8 Chloride 113 H Carbon Dioxide 22 Anion Gap 10 BUN 36 H Creatinine 1.3 H Creat Clearance w eGFR 39.21 Random Glucose 120 H Calcium 8.7 Phosphorus 3.3 D Magnesium 2.2 D Total Bilirubin 0.7 AST 32 ALT 24 Alkaline Phosphatase 63 D Total Protein 4.7 L Albumin 1.7 L Urine Color Urine Appearance Urine pH Ur Specific [place] Urine Protein Urine Glucose (UA) Urine Ketones Urine Blood Urine Nitrite Urine Bilirubin Urine Urobilinogen Ur Leukocyte Esterase Urine RBC Urine WBC Urine Mucus Impression: (1) Severe Left ventricular systolic dysfunction Code(s): I51.9 - HEART DISEASE, UNSPECIFIED (2) Left ventricular failure (3) Marked Elevated BNP Code(s): R79.89 - OTHER SPECIFIED ABNORMAL FINDINGS OF BLOOD CHEMISTRY (4) Elevated troponin Code(s): R74.8 - ABNORMAL LEVELS OF OTHER SERUM ENZYMES (5) Intermittent sinus Tachycardia Code(s): R00.0 - TACHYCARDIA, UNSPECIFIED (6) Sepsis Code(s): A41.9 - SEPSIS, UNSPECIFIED ORGANISM (6) Ruptured Diverticulitis Code(s): K57.92 - DVTRCLI OF INTEST, PART UNSP, W/O PERF OR ABSCESS W/O BLEED (7) History of Pulmonary thromboembolism Code(s): I26.99 - OTHER PULMONARY EMBOLISM WITHOUT ACUTE COR PULMONALE (8) Colostomy Code(s): Z90.49 - ACQUIRED ABSENCE OF OTHER SPECIFIED PARTS OF DIGESTIVE TRACT Recommendations: 1. Fluid management as outlined by compliance paralegal. 2. Follow up ECG. 3. X-ray chest. Prognosis: Critical Attestation: Documentation prepared by Adam Velazquez, acting as medical assistant for Jad Henderson MD.
--- NOTE | 2017-01-16 10:41 | PN ---
Progress Note, Physician History of Present Illness: patient seen and examined at bedside feels better today WBC count continues to rise tolerated sips of clears yesterday remains febrile Tmax 100 @ 6pm yesterday - Current Medication List Current Medications: Active Medications Acetaminophen (Ofirmev Injection -) 1,000 mg IVPB Q6H PRN PRN Reason: FEVER Last Admin: 01/13/17 15:37 Dose: 1,000 mg Albuterol/Ipratropium (Duoneb -) 1 amp NEB QIDR DAVID Last Admin: 01/16/17 05:28 Dose: 1 amp Heparin Sodium (Porcine) (Heparin -) 1,000 unit IVPUSH PRN PRN PRN Reason: Heparin Last Admin: 01/15/17 18:40 Dose: 1,000 unit Heparin Sodium (Porcine) (Heparin -) 5,000 unit IVPUSH PRN PRN PRN Reason: Heparin Last Admin: 01/15/17 21:52 Dose: 5,000 unit Hydromorphone HCl (Dilaudid Injection -) 0.5 mg IVPUSH Q4H PRN PRN Reason: MODERATE PAIN Last Admin: 01/14/17 20:29 Dose: 0.5 mg Metronidazole (Flagyl 500mg Premixed Ivpb -) 100 mls @ 100 mls/hr IVPB Q8H-IV DAVID Last Admin: 01/16/17 09:28 Dose: 100 mls/hr Famotidine/Sodium Chloride (Pepcid 20 Mg Premixed Ivpb -) 50 mls @ 100 mls/hr IVPB BID [facility] Last Admin: 01/16/17 09:27 Dose: 100 mls/hr Fluconazole (Diflucan 200 Mg/D5w Premixed Ivpb -) 100 mls @ 100 mls/hr IVPB DAILY [facility] Last Admin: 01/16/17 09:27 Dose: 100 mls/hr Heparin Sodium/Dextrose (Heparin Infusion -) 500 mls @ 20 mls/hr IVPB TITR DAVID ; 1,000 UNITS/HR PRN Reason: Protocol Last Titration: 01/16/17 08:00 Dose: 1,500 units/hr Meropenem 1 gm/ Dextrose 100 mls @ 100 mls/hr IVPB BID@0500,1700 DAVID PRN Reason: Protocol Last Admin: 01/16/17 05:12 Dose: 100 mls/hr Metoprolol Tartrate (Lopressor Injection -) 5 mg IVPB Q8H-IV DAVID Last Admin: 01/16/17 09:29 Dose: 5 mg Potassium Chloride (Potassium Chloride 20 Meq Premix Ivpb -) 20 meq IVPB Q60M DAVID Stop: 01/16/17 11:01 - Objective Vital Signs: Vital Signs Temperature 99.9 F H 01/16/17 06:00 Pulse Rate 106 H 01/16/17 09:29 Respiratory Rate 16 01/16/17 06:00 Blood Pressure 131/58 01/16/17 09:29 O2 Sat by Pulse Oximetry (%) 94 L 01/16/17 04:20 Constitutional: Yes: Other (tired appearing but easily arousable) Eyes: Yes: Other (right pupils slightly larger then left but both are sluggishly reactive to light) HENT: Yes: Normocephalic Neck: Yes: Supple, Trachea Midline Cardiovascular: Yes: Tachycardia, Pulse Irregular, S1, S2 Respiratory: Yes: Other (scattered crackles less so than yesterday) Gastrointestinal: Yes: Soft, +Bowel Sounds, Other (incision C/D/I abdomen soft appropriately tender ostomy pink with good function. JAMES drain with dark black murky drainage) Genitourinary: Yes: Jennings Present Extremities: Yes: WNL Edema: yes bilateral lower extremity trace pitting edema Wound/Incision: Yes: Clean/Dry Neurological: Yes: Alert, Other (tired appearing) Psychiatric: Yes: Alert, Oriented (to self and place-knows she is in the hospital) Labs: CBC, BMP 01/16/17 05:35 01/16/17 05:35 INR, PTT INR 1.48 (0.82-1.09) H 01/16/17 05:35 - ....Imaging Chest X-ray: Report Reviewed, Image Reviewed Assessment/Plan 81F with a history of diverticulosis presents to the ED with perforated diverticulitis now post op day 3 s/p sigmoid resection with colostomy. perforated diverticulitis: patient is currently septic with worsening leukocystosis and tachycardia. Source is likely from the abdomen. f/u abdominal cultures-Perdomo sensitive E. Coli Will get CT scan to rule out collection, abscess or any other intra-abdominal process may need IR drainage will consider culturing JAMES drainage as it is dark and murky now still spiking fevers Tmax 100 yesterday at 6pm will send BCx-no growth to date continue meropenem and diflucan per ID-started yesterday f/u ID central line for CVP monitoring placed 01/12/2017 pain control PRN IV Ofirmev for fevers and pain Post-op NSTEMI: cardiology consult appreciated likely from a combination of demand and decreased clearance from acute kidney injury stop trending troponins per cardiology systolic CHF with severely reduced EF: monitor for the need for diuresis daily cardiology follow up monitor CVP history of DVT/PE: coumadin on hold for now on heparin gtt monitor PTT per protocol JG: continues to improve Creatinine 1.3 today continue IVF continue to trend post-op respiratory failure: improving BiPAP PRN placed on nasal cannula today and tolerating give lasix today for fluid overload Will get BNP with morning labs per cardiology Afib: continue rate control with metoprolol 5mg IV q8h continue heparin gtt HLD: not on medications at this time will restart lipitor at home dose when appropriate FEN: stop IVF replete for hypokalemia replete for hypophosphatemia CLD PPx: SCDs on heparin gtt for full dose anticoagulation Pepcid PT consult when able to participate incentive spirometry CCTime 35 min
[2017-01-16] MEDS: POTASSIUM CHLORIDE 20 MEQ PREMIX IVPB 100 ML IVPB SCH ×2 (11:29→12:53)
[2017-01-16 11:40] LABS: PLATELET ESTIMATE ADEQUATE (NORMAL)
--- NOTE | 2017-01-16 12:40 | PN ---
Teaching Attending Note Name of Resident: Arya Cook ATTENDING PHYSICIAN STATEMENT I saw and evaluated the patient. I reviewed the resident's note and discussed the case with the resident. I agree with the resident's findings and plan as documented. SUBJECTIVE: Patient seen and examined at bedside. More lethargic today and on NIPPV. Arousable and able to respond to some questions. Denies CP or SOB. No pressors. Persistent Leukocytosis Intake & Output 01/13/17 01/14/17 01/15/17 01/16/17 23:59 23:59 23:59 23:59 Intake Total 5156 2930 1839 489 Output Total 970 1450 1400 245 Balance 4186 1480 439 244 Weight 234 lb 5.622 oz 235 lb 8 oz 236 lb 8.896 oz 236 lb 3 oz Last Vital Signs Temp Pulse Resp BP Pulse Ox 99.9 F H 89 16 131/58 95 01/16/17 06:00 01/16/17 10:35 01/16/17 06:00 01/16/17 09:29 01/16/17 12:15 Active Medications Acetaminophen (Ofirmev Injection -) 1,000 mg IVPB Q6H PRN PRN Reason: FEVER Last Admin: 01/13/17 15:37 Dose: 1,000 mg Albuterol/Ipratropium (Duoneb -) 1 amp NEB QIDR DAVID Last Admin: 01/16/17 10:40 Dose: 1 amp Heparin Sodium (Porcine) (Heparin -) 1,000 unit IVPUSH PRN PRN PRN Reason: Heparin Last Admin: 01/15/17 18:40 Dose: 1,000 unit Heparin Sodium (Porcine) (Heparin -) 5,000 unit IVPUSH PRN PRN PRN Reason: Heparin Last Admin: 01/15/17 21:52 Dose: 5,000 unit Hydromorphone HCl (Dilaudid Injection -) 0.5 mg IVPUSH Q4H PRN PRN Reason: MODERATE PAIN Last Admin: 01/14/17 20:29 Dose: 0.5 mg Metronidazole (Flagyl 500mg Premixed Ivpb -) 100 mls @ 100 mls/hr IVPB Q8H-IV DAVID Last Admin: 01/16/17 09:28 Dose: 100 mls/hr Famotidine/Sodium Chloride (Pepcid 20 Mg Premixed Ivpb -) 50 mls @ 100 mls/hr IVPB BID [facility] Last Admin: 01/16/17 09:27 Dose: 100 mls/hr Fluconazole (Diflucan 200 Mg/D5w Premixed Ivpb -) 100 mls @ 100 mls/hr IVPB DAILY [facility] Last Admin: 01/16/17 09:27 Dose: 100 mls/hr Heparin Sodium/Dextrose (Heparin Infusion -) 500 mls @ 20 mls/hr IVPB TITR DAVID ; 1,000 UNITS/HR PRN Reason: Protocol Last Titration: 01/16/17 08:00 Dose: 1,500 units/hr Meropenem 1 gm/ Dextrose 100 mls @ 100 mls/hr IVPB BID@0500,1700 DAVID PRN Reason: Protocol Last Admin: 01/16/17 05:12 Dose: 100 mls/hr Metoprolol Tartrate (Lopressor Injection -) 5 mg IVPB Q8H-IV [facility] Last Admin: 01/16/17 09:29 Dose: 5 mg Constitutional: Yes: Lethargic but arousbale, Mildly tachypneic on NIPPV Eyes: Yes: (-) Pallor (-) Icterus HENT: Yes: Normocephalic Neck: Yes: Supple, Trachea Midline Cardiovascular: Yes: Tachycardia, Pulse Irregular, S1, S2 Respiratory: Yes: Bilateral scattered Rhonchi and crackles Gastrointestinal: Yes: Soft, (+) BS, brownish discharge from drain, incision C/D /I, appropriately tender, ostomy pink with some output Genitourinary: Yes: Jennings Present Extremities: Yes: WNL Edema: No Integumentary: Yes: Tenting Wound/Incision: Yes: Clean/Dry Neurological: Yes: Alert, non-focal Psychiatric: Yes: Lethargy Labs: Laboratory Results - last 24 hr 01/15/17 01/15/17 01/15/17 09:15 12:00 20:03 WBC RBC Hgb Hct MCV MCH MCHC RDW Plt Count MPV Neutrophils % Lymphocytes % Monocytes % Differential Comment Platelet Estimate INR PTT (Actin FS) 46.8 H 35.5 H Sodium Potassium Chloride Carbon Dioxide Anion Gap BUN Creatinine Creat Clearance w eGFR Random Glucose Calcium Phosphorus Magnesium Total Bilirubin AST ALT Alkaline Phosphatase Total Protein Albumin Urine Color Dkyellow Urine Appearance Clear Urine pH 5.0 Ur Specific [place] 1.015 Urine Protein 1+ H Urine Glucose (UA) Negative Urine Ketones Negative Urine Blood 2+ H Urine Nitrite Negative Urine Bilirubin Negative Urine Urobilinogen Negative Ur Leukocyte Esterase Trace Urine RBC 26 Urine WBC 6 Urine Mucus Rare 01/16/17 01/16/17 01/16/17 05:35 05:35 05:35 WBC 29.7 H RBC 3.38 L Hgb 10.6 L Hct 33.4 MCV 98.9 H MCH 31.4 MCHC 31.7 L RDW 14.8 Plt Count 379 D MPV 9.8 Neutrophils % 91.0 H Lymphocytes % 5.0 L D Monocytes % 4.0 Differential Comment Manual diff done Platelet Estimate Adequate INR 1.48 H PTT (Actin FS) 30.2 Sodium 145 Potassium 3.8 Chloride 113 H Carbon Dioxide 22 Anion Gap 10 BUN 36 H Creatinine 1.3 H Creat Clearance w eGFR 39.21 Random Glucose 120 H Calcium 8.7 Phosphorus 3.3 D Magnesium 2.2 D Total Bilirubin 0.7 AST 32 ALT 24 Alkaline Phosphatase 63 D Total Protein 4.7 L Albumin 1.7 L Urine Color Urine Appearance Urine pH Ur Specific [place] Urine Protein Urine Glucose (UA) Urine Ketones Urine Blood Urine Nitrite Urine Bilirubin Urine Urobilinogen Ur Leukocyte Esterase Urine RBC Urine WBC Urine Mucus Assessment/Plan Perforated diverticulitis S/P Sigmoid resection with colostomy. Diverticulosis Suspected Pulmonary vascular congestion Peritonitis History of PE/DVT JG suspected CT scan for further evaluation ABX per ID IVF PO as tolerated Strict I&O Pain control Incentive Spirometry if able NIPPV support IV Heparin Dr Anglin Critical Care Time/MDM Note Total Critical Care Time: 35 Critical Care Statement: The care of this patient involved high complexity decision making to prevent further life threatening deterioration of the patient 's condition and/or to evaluate & treat vital organ system(s) failure or risk of failure.
[2017-01-16] MEDS: HEPARIN INFUSION - 500 ML IVPB SCH (15:00)
[2017-01-16] MEDS: ACETAMINOPHEN 1000 MG/100 ML VIAL (NON FORMULARY) IVPB PRN (19:22)
--- NOTE | 2017-01-16 19:51 | PN ---
Progress Note, Physician History of Present Illness: patient mentally stable good urine output wbc still increasing patient on venti mask ct scan done - Current Medication List Current Medications: Active Medications Acetaminophen (Ofirmev Injection -) 1,000 mg IVPB Q6H PRN PRN Reason: FEVER Last Admin: 01/16/17 19:22 Dose: 1,000 mg Albuterol/Ipratropium (Duoneb -) 1 amp NEB QIDR DAVID Last Admin: 01/16/17 17:20 Dose: 1 amp Heparin Sodium (Porcine) (Heparin -) 1,000 unit IVPUSH PRN PRN PRN Reason: Heparin Last Admin: 01/15/17 18:40 Dose: 1,000 unit Heparin Sodium (Porcine) (Heparin -) 5,000 unit IVPUSH PRN PRN PRN Reason: Heparin Last Admin: 01/15/17 21:52 Dose: 5,000 unit Hydromorphone HCl (Dilaudid Injection -) 0.5 mg IVPUSH Q4H PRN PRN Reason: MODERATE PAIN Last Admin: 01/14/17 20:29 Dose: 0.5 mg Metronidazole (Flagyl 500mg Premixed Ivpb -) 100 mls @ 100 mls/hr IVPB Q8H-IV DAVID Last Admin: 01/16/17 19:07 Dose: 100 mls/hr Famotidine/Sodium Chloride (Pepcid 20 Mg Premixed Ivpb -) 50 mls @ 100 mls/hr IVPB BID [facility] Last Admin: 01/16/17 09:27 Dose: 100 mls/hr Fluconazole (Diflucan 200 Mg/D5w Premixed Ivpb -) 100 mls @ 100 mls/hr IVPB DAILY [facility] Last Admin: 01/16/17 09:27 Dose: 100 mls/hr Heparin Sodium/Dextrose (Heparin Infusion -) 500 mls @ 20 mls/hr IVPB TITR DAVID ; 1,000 UNITS/HR PRN Reason: Protocol Last Admin: 01/16/17 15:00 Dose: 30 mls/hr Meropenem 1 gm/ Dextrose 100 mls @ 100 mls/hr IVPB BID@0500,1700 DAVID PRN Reason: Protocol Last Admin: 01/16/17 19:08 Dose: 100 mls/hr Vancomycin HCl 1,250 mg/ (Dextrose) 250 mls @ 250 mls/hr IVPB DAILY DAVID PRN Reason: Protocol Metoprolol Tartrate (Lopressor Injection -) 5 mg IVPB Q8H-IV DAVID Last Admin: 01/16/17 19:08 Dose: 5 mg - Objective Vital Signs: Vital Signs Temperature 99.7 F H 01/16/17 18:00 Pulse Rate 104 H 01/16/17 19:08 Respiratory Rate 22 01/16/17 18:00 Blood Pressure 138/66 01/16/17 19:08 O2 Sat by Pulse Oximetry (%) 94 L 01/16/17 19:15 Constitutional: Yes: Mild Distress, Other Eyes: Yes: Conjunctiva Clear Cardiovascular: Yes: Tachycardia, Pulse Irregular Respiratory: Yes: Poor Air Entry, Rhonchi Gastrointestinal: Yes: Soft, Other (osteomy pink,wound noted) Genitourinary: Yes: Jennings Present Musculoskeletal: Yes: WNL Edema: LLE: 1+, RLE: 1+ Wound/Incision: Yes: Dressing Dry and Intact, Other Neurological: Yes: Alert Psychiatric: Yes: Alert Labs: CBC, BMP 01/16/17 05:35 01/16/17 05:35 INR, PTT INR 1.48 (0.82-1.09) H 01/16/17 05:35 Assessment/Plan 81 y/o old with multiple medical problems with perforated bowel post op Perforated bowel Peritonitis Sepsis s/p ex-lap with sigmoid resection, colostomy Resolving JG Lactic acidosis AF h/o DVT/PE plan await for cx reports await for ct scan results continue abx continue hydration vanco to continue 'close watch consider changing line cc time 40 min
[2017-01-16] MEDS: VANCOMYCIN 1,250 MG in DEXTROSE 5%-WATER - 250 ML IVPB SCH (21:29)
[2017-01-16] MEDS: HYDROmorphone HCL CARPU-JECT 1 MG/1 ML DISP.SYRIN IVPUSH PRN (22:51)
[2017-01-17] MEDS: METOPROLOL TARTRATE 5 MG/5 ML VIAL IVPB SCH ×3 (01:27→17:10)
[2017-01-17] MEDS: METRONIDAZOLE 500 MG PREMIXED 100 ML IVPB SCH (01:27)
[2017-01-17] MEDS ORDERED: PT OWN MED DRAWER 7, Y5N ONE ×4 (05:42→15:49)
[2017-01-17] MEDS: MEROPENEM 1 GM in DEXTROSE 5%-WATER - 100 ML IVPB SCH ×2 (05:43→15:59)
[2017-01-17] MEDS: ALBUTEROL SO4 2.5/IPRATROPIUM 0.5 INH SOL 3 ML VIAL.NEB. NEB SCH ×4 (06:00→18:57)
[2017-01-17 06:23] LABS: MCH 32.4 pg (25.7-33.7); MCHC 32.8 g/dl (32.0-36.0); MEAN CELL VOLUME 98.8 fl (80-96); MEAN PLT VOLUME 9.3 fl (7.5-11.1); PLATELET COUNT 435 K/MM3 (134-434); RDW 14.6 % (11.6-15.6); WHITE BLOOD COUNT 27.2 K/mm3 (4.0-10.0)
[2017-01-17 06:30] LABS: INR 1.41 (0.82-1.09); PROTHROMBIN TIME (PATIENT) 15.6 SEC (9.98-11.88)
[2017-01-17 06:33] LABS: ACTIVATED PTT 29.9 SECONDS (26.9-34.4)
[2017-01-17] MEDS ORDERED: BENZOIN/ALOE VERA/STORAX/TOLU 58 ML BOTTLE ONE (06:38)
[2017-01-17 06:47] LABS: ALBUMIN 1.7 g/dl (3.4-5.0); ANION GAP 10 (8-16); CALCIUM 8.7 mg/dL (8.5-10.1); CO2 23 mmol/L (21-32); GLUCOSE,RANDOM 98 mg/dL (74-106); MAGNESIUM 2.2 mg/dL (1.8-2.4); PHOSPHOROUS 2.7 mg/dL (2.5-4.9)
[2017-01-17 06:50] LABS: ALK PHOS 67 U/L (45-117); BILIRUBIN,TOTAL 0.8 mg/dL (0.2-1.0); CREATININE 1.2 mg/dL (0.55-1.02); SGOT/AST 29 U/L (15-37); SGPT/ALT 19 U/L (12-78); TOT PROT 4.7 g/dl (6.4-8.2)
[2017-01-17] MEDS: HEPARIN NA (PORCINE) 5,000 UNITS/ML 1ML VIAL IVPUSH PRN ×2 (07:41→23:46)
--- NOTE | 2017-01-17 07:41 | PN ---
Progress Note (short form) - Note Progress Note: SUBJECTIVE: Patient seen and examined at bedside. CTAP yesterday with new fluid collection L aldo pelvis c/f abcess wbc remains high, slightly down trending this morning low grade temp but hemodyanmically stable cr cont to down trend nicely Vital Signs Temp 98.4 F 01/17/17 06:00 Pulse 99 H 01/17/17 06:00 Resp 16 01/17/17 06:00 BP 134/57 01/17/17 06:00 Pulse Ox 100 01/16/17 21:38 Intake & Output 01/16/17 01/16/17 01/17/17 11:59 23:59 11:59 Intake Total 489 2036 100 Output Total 245 700 420 Balance 244 1336 -320 Weight 107.133 kg 107.133 kg Intake: IV 189 336 Heparin Infusion - 500 ml 189 336 @ 1,000 UNITS/HR 20 mls/ hr IVPB TITR DAVID Rx#: [id number] IVPB 150 900 100 Oral 150 200 Tube Irrigant 600 Output: Drainage 45 50 70 Abdomen 45 50 70 Urine 200 650 350 Jennings 200 650 350 Other: Voiding Method Indwelling Catheter Indwelling Catheter Bowel Movement Yes Yes # Bowel Movements 2 Weight Measurement Method Built in Bedscale Built in Bedscale Active Medications Acetaminophen (Ofirmev Injection -) 1,000 mg IVPB Q6H PRN PRN Reason: FEVER Last Admin: 01/16/17 19:22 Dose: 1,000 mg Albuterol/Ipratropium (Duoneb -) 1 amp NEB QIDR [facility] Last Admin: 01/17/17 06:00 Dose: 1 amp Heparin Sodium (Porcine) (Heparin -) 1,000 unit IVPUSH PRN PRN PRN Reason: Heparin Last Admin: 01/15/17 18:40 Dose: 1,000 unit Heparin Sodium (Porcine) (Heparin -) 5,000 unit IVPUSH PRN PRN PRN Reason: Heparin Last Admin: 01/15/17 21:52 Dose: 5,000 unit Hydromorphone HCl (Dilaudid Injection -) 0.5 mg IVPUSH Q4H PRN PRN Reason: MODERATE PAIN Last Admin: 01/16/17 22:51 Dose: 0.5 mg Famotidine/Sodium Chloride (Pepcid 20 Mg Premixed Ivpb -) 50 mls @ 100 mls/hr IVPB BID DAVID Last Admin: 01/16/17 22:43 Dose: 100 mls/hr Fluconazole (Diflucan 200 Mg/D5w Premixed Ivpb -) 100 mls @ 100 mls/hr IVPB DAILY [facility] Last Admin: 01/16/17 09:27 Dose: 100 mls/hr Heparin Sodium/Dextrose (Heparin Infusion -) 500 mls @ 20 mls/hr IVPB TITR DAVID ; 1,000 UNITS/HR PRN Reason: Protocol Last Admin: 01/16/17 15:00 Dose: 30 mls/hr Meropenem 1 gm/ Dextrose 100 mls @ 100 mls/hr IVPB BID@0500,1700 DAVID PRN Reason: Protocol Last Admin: 01/17/17 05:43 Dose: 100 mls/hr Vancomycin HCl 1,250 mg/ (Dextrose) 250 mls @ 250 mls/hr IVPB DAILY DAVID PRN Reason: Protocol Last Admin: 01/16/17 21:29 Dose: 250 mls/hr Metoprolol Tartrate (Lopressor Injection -) 5 mg IVPB Q8H-IV DAVID Last Admin: 01/17/17 01:27 Dose: 5 mg Constitutional: Yes: Lethargic but arousbale, Mildly tachypneic on NIPPV Eyes: Yes: (-) Pallor (-) Icterus HENT: Yes: Normocephalic Neck: Yes: Supple, Trachea Midline Cardiovascular: Yes: Tachycardia, Pulse Irregular, S1, S2 Respiratory: Yes: Bilateral scattered Rhonchi and crackles Gastrointestinal: Yes: Soft, (+) hypoactive BS, brownish discharge from drain, incision C/D/I, appropriately tender, ostomy pink with some minimal output Genitourinary: Yes: Jennings Present Extremities: Yes: WNL Edema: No Integumentary: Yes: Tenting Wound/Incision: Yes: Clean/Dry Neurological: Yes: Alert, non-focal Psychiatric: Yes: Lethargy Labs: CBC, BMP 01/17/17 05:30 01/17/17 05:30 Microbiology 01/16/17 05:40 Blood - Peripheral Venous Blood Culture - Preliminary NO GROWTH OBTAINED AFTER 24 HOURS, INCUBATION TO CONTINUE FOR 4 DAYS. 01/16/17 05:35 Blood - Peripheral Venous Blood Culture - Preliminary NO GROWTH OBTAINED AFTER 24 HOURS, INCUBATION TO CONTINUE FOR 4 DAYS. 01/15/17 09:15 Urine - Urine Jennings Urine Culture - Final NO GROWTH OBTAINED 01/13/17 08:45 Blood - Peripheral Venous Blood Culture - Preliminary NO GROWTH OBTAINED AFTER 72 HOURS, INCUBATION TO CONTINUE FOR 2 DAYS. 01/13/17 08:45 Blood - Peripheral Venous Blood Culture - Preliminary NO GROWTH OBTAINED AFTER 72 HOURS, INCUBATION TO CONTINUE FOR 2 DAYS. 01/09/17 21:05 Peritoneal Fluid Gram Stain - Final 01/09/17 21:05 Peritoneal Fluid Body Fluid Culture - Final Escherichia Coli 01/09/17 21:05 Peritoneal Fluid Anaerobic Culture - Final NO ANAEROBES WERE ISOLATED 01/09/17 15:13 Urine - Urine - Catheterized Urine Culture - Final NO GROWTH OBTAINED Assessment/Plan Perforated diverticulitis S/P Sigmoid resection with colostomy. Diverticulosis Suspected Pulmonary vascular congestion Peritonitis History of PE/DVT JG suspected Likely needs IR drain vs Re-op given new fluid collection with air/fluid level ABX per ID IVF PO as tolerated unless going to OR, then NPO Strict I&O Pain control Incentive Spirometry NIPPV support IV Heparin Cesar Oliver ACNP [phone] CCT
--- NOTE | 2017-01-17 08:46 | PN ---
Progress Note, Physician Chief Complaint: Feels better History of Present Illness: S/P colostomy CT abdomen showed large intraabdominal abscess - Current Medication List Current Medications: Active Medications Acetaminophen (Ofirmev Injection -) 1,000 mg IVPB Q6H PRN PRN Reason: FEVER Last Admin: 01/16/17 19:22 Dose: 1,000 mg Albuterol/Ipratropium (Duoneb -) 1 amp NEB QIDR DAVID Last Admin: 01/17/17 06:00 Dose: 1 amp Heparin Sodium (Porcine) (Heparin -) 1,000 unit IVPUSH PRN PRN PRN Reason: Heparin Last Admin: 01/15/17 18:40 Dose: 1,000 unit Heparin Sodium (Porcine) (Heparin -) 5,000 unit IVPUSH PRN PRN PRN Reason: Heparin Last Admin: 01/17/17 07:41 Dose: 5,000 unit Famotidine/Sodium Chloride (Pepcid 20 Mg Premixed Ivpb -) 50 mls @ 100 mls/hr IVPB BID [facility] Last Admin: 01/16/17 22:43 Dose: 100 mls/hr Fluconazole (Diflucan 200 Mg/D5w Premixed Ivpb -) 100 mls @ 100 mls/hr IVPB DAILY [facility] Last Admin: 01/16/17 09:27 Dose: 100 mls/hr Heparin Sodium/Dextrose (Heparin Infusion -) 500 mls @ 20 mls/hr IVPB TITR DAVID ; 1,000 UNITS/HR PRN Reason: Protocol Last Titration: 01/17/17 07:41 Dose: 1,650 units/hr Meropenem 1 gm/ Dextrose 100 mls @ 100 mls/hr IVPB BID@0500,1700 DAVID PRN Reason: Protocol Last Admin: 01/17/17 05:43 Dose: 100 mls/hr Vancomycin HCl 1,250 mg/ (Dextrose) 250 mls @ 250 mls/hr IVPB DAILY DAVID PRN Reason: Protocol Last Admin: 01/16/17 21:29 Dose: 250 mls/hr Metoprolol Tartrate (Lopressor Injection -) 5 mg IVPB Q8H-IV DAVID Last Admin: 01/17/17 01:27 Dose: 5 mg - Objective Vital Signs: Vital Signs Temperature 98.1 F 01/17/17 08:00 Pulse Rate 95 H 01/17/17 08:00 Respiratory Rate 18 01/17/17 08:00 Blood Pressure 113/59 01/17/17 08:00 O2 Sat by Pulse Oximetry (%) 100 01/16/17 21:38 Constitutional: Yes: Mild Distress Eyes: Yes: WNL HENT: Yes: WNL Neck: Yes: WNL Cardiovascular: Yes: WNL Respiratory: Yes: WNL Gastrointestinal: Yes: Hypoactive Bowel Sounds ...Rectal Exam: Yes: Deferred Genitourinary: Yes: Jennings Present Breast(s): Yes: WNL Edema: No Peripheral Pulses WNL: Yes Integumentary: Yes: WNL Neurological: Yes: Alert Labs: CBC, BMP 01/17/17 05:30 01/17/17 05:30 INR, PTT INR 1.41 (0.82-1.09) H 01/17/17 05:30 Assessment/Plan continue same trt
[2017-01-17] MEDS: FAMOTIDINE 20 MG/50 ML IVPB 50 ML IVPB SCH ×2 (08:59→22:23)
[2017-01-17] MEDS: FLUCONAZOLE 200 MG/D5W 100 ML IVPB SCH (08:59)
[2017-01-17] MEDS: VANCOMYCIN 1,250 MG in DEXTROSE 5%-WATER - 250 ML IVPB SCH (09:26)
[2017-01-17 09:43] LABS: ANISOCYTOSIS 1+; PLATELET COMMENT2 NO CLOTTING DETECTED; PLATELET COMMENT3 NO CLUMPING NOTED; PLATELET ESTIMATE SLT INCREASED (NORMAL); POIKILOCYTOSIS 1+; POLYCHROMASIA 1+
--- NOTE | 2017-01-17 11:47 | PN ---
Progress Note (short form) - Note Progress Note: Covering for Dr. Taqueria Prado 81yo morbidly obese F with multiple medical problems POD 8 s/p Nathanael's procedure for perforated diverticulitis with abscess. She had been tolerating liquids, but was lethargic yesterday and had NGT placed for contrast administration for CT. WBC has been high with low-grade temps. CT showed somewhat increased central collection with contained air and fluid, as well as a collection at the left inferior colic gutter in LLQ. No extravasation of contrast into these. Ostomy has been functioning, though output is liquid, brown and minimal. JAMES drain with brown-tinged serosanguineous drainage + odor. Midline incision is packed open. Drain is near central collection on CT, but LLQ collection is not adjacent. Heparin drip for afib. On antibiotics, Vanco, Meropenem and Diflucan. Pt states she feels "not too bad." States pain is "five-brittaney," and indicates lower abdominal pain, more on the right. She is getting a respiratory treatment. Vital Signs Period Temp Pulse Resp BP Sys/Riley Pulse Ox Last 24 Hr 98.1 F-99.7 F 89-105 16-26 113-138/51-105 94-100 Intake & Output 01/16/17 01/17/17 01/17/17 23:59 07:59 15:59 Intake Total 1836 100 Output Total 400 420 Balance 1436 -320 Weight 236 lb 3 oz Intake: IV 336 Heparin Infusion - 500 ml 336 @ 1,000 UNITS/HR 20 mls/ hr IVPB TITR DAVID Rx#: [id number] IVPB 900 100 Tube Irrigant 600 Output: Drainage 50 70 Abdomen 50 70 Urine 350 350 Jennings 350 350 Other: Voiding Method Indwelling Catheter Indwelling Catheter Bowel Movement Yes # Bowel Movements 2 Weight Measurement Method Built in [facility] PE: arouses to voice and answers questions, but pt is lethargic respiratory treatment underway central line in R neck morbidly obese HR somewhat irregular, hard to hear over respirations mildly labored breathing, forced expirations, few rhonchi/?wheezes, some vocalization abdomen soft, obese, tender diffusely but more in lower aspects, no rebound/ guarding ostomy pink, patent, productive of small amount of liquid brown stool in bag midline incision dressing changed with saline-dampened Kerlix gauze and covered with gauze and tape JAMES dressing also changed, scant yellow staining on gauze, minimal reddish-brown drainage in bulb, tubing stripped, + odor CBCD WBC 27.2 K/mm3 (4.0-10.0) H 01/17/17 05:30 RBC 3.13 M/mm3 (3.60-5.2) L 01/17/17 05:30 Hgb 10.1 GM/dL (10.7-15.3) L 01/17/17 05:30 Hct 30.9 % (32.4-45.2) L 01/17/17 05:30 MCV 98.8 fl (80-96) H 01/17/17 05:30 MCHC 32.8 g/dl (32.0-36.0) 01/17/17 05:30 RDW 14.6 % (11.6-15.6) 01/17/17 05:30 Plt Count 435 K/MM3 (134-434) H 01/17/17 05:30 MPV 9.3 fl (7.5-11.1) 01/17/17 05:30 CMP Sodium 145 mmol/L (136-145) 01/17/17 05:30 Potassium 4.1 mmol/L (3.5-5.1) 01/17/17 05:30 Chloride 112 mmol/L (98-107) H 01/17/17 05:30 Carbon Dioxide 23 mmol/L (21-32) 01/17/17 05:30 Anion Gap 10 (8-16) 01/17/17 05:30 BUN 33 mg/dL (7-18) H 01/17/17 05:30 Creatinine 1.2 mg/dL (0.55-1.02) H 01/17/17 05:30 Creat Clearance w eGFR 43.01 (>60) 01/17/17 05:30 Calcium 8.7 mg/dL (8.5-10.1) 01/17/17 05:30 Total Bilirubin 0.8 mg/dL (0.2-1.0) 01/17/17 05:30 AST 29 U/L (15-37) 01/17/17 05:30 ALT 19 U/L (12-78) D 01/17/17 05:30 Alkaline Phosphatase 67 U/L (45-117) 01/17/17 05:30 Total Protein 4.7 g/dl (6.4-8.2) L 01/17/17 05:30 Albumin 1.7 g/dl (3.4-5.0) L 01/17/17 05:30 INR, PTT INR 1.41 (0.82-1.09) H 01/17/17 05:30 renal function improving slowly Na/Cl a little high albumin very low wbc down slightly but remains elevated PTT was low overnight, new draw pending soon (pt on heparin drip) A/P: POD8 s/p Nathanael's for perforated diverticulitis with abscess intraabdominal collections on CT ICU to contact IR regarding percutaneous drainage would keep NPO for now IV hydration continue antibiotics as per JACQUIE Kasper MD Problem List - Problems (1) Diverticulitis of large intestine with perforation and abscess without bleeding Code(s): K57.20 - DVTRCLI OF LG INT W PERFORATION AND ABSCESS W/O BLEEDING (2) Intra-abdominal abscess post-procedure Code(s): T81.4XXA - INFECTION FOLLOWING A PROCEDURE, INITIAL ENCOUNTER K65.1 - PERITONEAL ABSCESS Qualifiers: Encounter type: initial encounter Qualified Code(s): T81.4XXA - Infection following a procedure, initial encounter; K65.1 - Peritoneal abscess (3) Sepsis Code(s): A41.9 - SEPSIS, UNSPECIFIED ORGANISM Qualifiers: Sepsis type: sepsis due to unspecified organism Qualified Code(s): A41.9 - Sepsis, unspecified organism (4) Atrial fibrillation Code(s): I48.91 - UNSPECIFIED ATRIAL FIBRILLATION Qualifiers: Atrial fibrillation type: chronic Qualified Code(s): I48.2 - Chronic atrial fibrillation
[2017-01-17] MEDS: DEXTROSE 5%-0.45% SALINE 1,000 ML IV SCH (13:00)
[2017-01-17 13:48] LABS: ART PUNCT SITE OTHER; ARTERIAL BLD GAS O2 SATURATION 98.5 % (90-98.9); ARTERIAL BLOOD GAS BASE EXCESS -2.7 meq/l (-2-2); LPM/O2% 50%; PT. ON O2? YES
[2017-01-17 13:49] LABS: TYPE OF O2 VENTIMASK
--- NOTE | 2017-01-17 15:51 | PN ---
Progress Note, Physician Chief Complaint: Infectious Disease History of Present Illness: Pt is weak but responsive Currently afebrile pain controlled - Current Medication List Current Medications: Active Medications Acetaminophen (Ofirmev Injection -) 1,000 mg IVPB Q6H PRN PRN Reason: FEVER Last Admin: 01/16/17 19:22 Dose: 1,000 mg Albuterol/Ipratropium (Duoneb -) 1 amp NEB QIDR DAVID Last Admin: 01/17/17 11:20 Dose: 1 amp Heparin Sodium (Porcine) (Heparin -) 1,000 unit IVPUSH PRN PRN PRN Reason: Heparin Last Admin: 01/15/17 18:40 Dose: 1,000 unit Heparin Sodium (Porcine) (Heparin -) 5,000 unit IVPUSH PRN PRN PRN Reason: Heparin Last Admin: 01/17/17 07:41 Dose: 5,000 unit Famotidine/Sodium Chloride (Pepcid 20 Mg Premixed Ivpb -) 50 mls @ 100 mls/hr IVPB BID DAVID Last Admin: 01/17/17 08:59 Dose: 100 mls/hr Fluconazole (Diflucan 200 Mg/D5w Premixed Ivpb -) 100 mls @ 100 mls/hr IVPB DAILY DAVID Last Admin: 01/17/17 08:59 Dose: 100 mls/hr Heparin Sodium/Dextrose (Heparin Infusion -) 500 mls @ 20 mls/hr IVPB TITR DAVID ; 1,000 UNITS/HR PRN Reason: Protocol Last Titration: 01/17/17 14:45 Dose: 0 units/hr Meropenem 1 gm/ Dextrose 100 mls @ 100 mls/hr IVPB BID@0500,1700 DAVID PRN Reason: Protocol Last Admin: 01/17/17 05:43 Dose: 100 mls/hr Vancomycin HCl 1,250 mg/ (Dextrose) 250 mls @ 250 mls/hr IVPB DAILY DAVID PRN Reason: Protocol Last Admin: 01/17/17 09:26 Dose: 250 mls/hr Dextrose/Sodium Chloride (D5-1/2ns -) 1,000 mls @ 42 mls/hr IV ASDIR DAVID Metoprolol Tartrate (Lopressor Injection -) 5 mg IVPB Q8H-IV DAVID Last Admin: 01/17/17 08:59 Dose: 5 mg - Objective Vital Signs: Vital Signs Temperature 98.2 F 01/17/17 14:00 Pulse Rate 96 H 01/17/17 14:00 Respiratory Rate 22 01/17/17 14:00 Blood Pressure 120/63 01/17/17 14:00 O2 Sat by Pulse Oximetry (%) 95 01/17/17 11:20 Constitutional: Yes: No Distress Cardiovascular: Yes: Tachycardia Respiratory: Yes: Other (slightly labored) Gastrointestinal: Yes: Distention, Tenderness, Other Wound/Incision: Yes: Dressing Dry and Intact, Other (+ colostomy) Labs: CBC, BMP 01/17/17 05:30 01/17/17 05:30 INR, PTT INR 1.41 (0.82-1.09) H 01/17/17 05:30 Microbiology 01/13/17 08:45 Blood - Peripheral Venous Blood Culture - Preliminary NO GROWTH OBTAINED AFTER 96 HOURS, INCUBATION TO CONTINUE FOR 1 DAYS. 01/13/17 08:45 Blood - Peripheral Venous Blood Culture - Preliminary NO GROWTH OBTAINED AFTER 96 HOURS, INCUBATION TO CONTINUE FOR 1 DAYS. 01/16/17 05:40 Blood - Peripheral Venous Blood Culture - Preliminary NO GROWTH OBTAINED AFTER 24 HOURS, INCUBATION TO CONTINUE FOR 4 DAYS. 01/16/17 05:35 Blood - Peripheral Venous Blood Culture - Preliminary NO GROWTH OBTAINED AFTER 24 HOURS, INCUBATION TO CONTINUE FOR 4 DAYS. - ....Imaging Cat Scan: Report Reviewed Problem List - Problems (1) H/O partial resection of colon Code(s): Z90.49 - ACQUIRED ABSENCE OF OTHER SPECIFIED PARTS OF DIGESTIVE TRACT (2) Intra-abdominal abscess post-procedure Code(s): T81.4XXA - INFECTION FOLLOWING A PROCEDURE, INITIAL ENCOUNTER K65.1 - PERITONEAL ABSCESS Qualifiers: Encounter type: initial encounter Qualified Code(s): T81.4XXA - Infection following a procedure, initial encounter; K65.1 - Peritoneal abscess (3) Perforated bowel Code(s): K63.1 - PERFORATION OF INTESTINE (NONTRAUMATIC) (4) Severe sepsis Code(s): A41.9 - SEPSIS, UNSPECIFIED ORGANISM R65.20 - SEVERE SEPSIS WITHOUT SEPTIC SHOCK Assessment/Plan Sigmoid perforation s/p resection/colostomy Intraabdominal Abscesses Sepsis Leukocytosis pt currently afebrile but weak CT Abd results reviewed, recommend drainage of abscess wbc remains elevated Continue current antibiotics monitor wbc, vitals cc time spent: 40 min
[2017-01-17] MEDS: HEPARIN INFUSION - 500 ML IVPB SCH ×2 (17:10→22:24)
[2017-01-17] MEDS: ACETAMINOPHEN 1000 MG/100 ML VIAL (NON FORMULARY) IVPB PRN (18:18)
--- NOTE | 2017-01-17 21:04 | PN ---
Progress Note (short form) - Note Progress Note: 81 year female with H/O hypertension,admitted with ruptured diverticulitis S/P colostomy.Severe LV systolic dysfunction. Patient is lethargic and appears confused, periods of agitation, presently is sinus rhythm with periods of sinus tachycardia and hemodynamically is stable. Active Medications: Acetaminophen (Ofirmev Injection -) 1,000 mg IVPB Q6H PRN PRN Reason: FEVER Last Admin: 01/17/17 18:18 Dose: 1,000 mg Albuterol/Ipratropium (Duoneb -) 1 amp NEB QIDR DAVID Last Admin: 01/17/17 18:57 Dose: 1 amp Heparin Sodium (Porcine) (Heparin -) 1,000 unit IVPUSH PRN PRN PRN Reason: Heparin Last Admin: 01/15/17 18:40 Dose: 1,000 unit Heparin Sodium (Porcine) (Heparin -) 5,000 unit IVPUSH PRN PRN PRN Reason: Heparin Last Admin: 01/17/17 07:41 Dose: 5,000 unit Famotidine/Sodium Chloride (Pepcid 20 Mg Premixed Ivpb -) 50 mls @ 100 mls/hr IVPB BID [facility] Last Admin: 01/17/17 08:59 Dose: 100 mls/hr Fluconazole (Diflucan 200 Mg/D5w Premixed Ivpb -) 100 mls @ 100 mls/hr IVPB DAILY [facility] Last Admin: 01/17/17 08:59 Dose: 100 mls/hr Heparin Sodium/Dextrose (Heparin Infusion -) 500 mls @ 20 mls/hr IVPB TITR DAVID ; 1,000 UNITS/HR PRN Reason: Protocol Last Admin: 01/17/17 17:10 Dose: 30 mls/hr Meropenem 1 gm/ Dextrose 100 mls @ 100 mls/hr IVPB BID@0500,1700 DAVID PRN Reason: Protocol Last Admin: 01/17/17 15:59 Dose: 100 mls/hr Vancomycin HCl 1,250 mg/ (Dextrose) 250 mls @ 250 mls/hr IVPB DAILY DAVID PRN Reason: Protocol Last Admin: 01/17/17 09:26 Dose: 250 mls/hr Dextrose/Sodium Chloride (D5-1/2ns -) 1,000 mls @ 42 mls/hr IV ASDIR [facility] Last Admin: 01/17/17 13:00 Dose: 42 mls/hr Metoprolol Tartrate (Lopressor Injection -) 5 mg IVPB Q8H-IV DAVID Last Admin: 01/17/17 17:10 Dose: 5 mg Vital Signs - 8 hr 01/17/17 01/17/17 01/17/17 14:00 16:00 17:10 Temperature 98.2 F Pulse Rate 96 H 115 H 104 H Respiratory 22 27 H Rate Blood Pressure 120/63 130/86 130/86 O2 Sat by Pulse Oximetry (%) 01/17/17 01/17/17 18:00 18:55 Temperature Pulse Rate 85 Respiratory 25 H Rate Blood Pressure 121/86 O2 Sat by Pulse 98 Oximetry (%) NECK: Supple, NO JVD,+HJR, carotids 1+ HEART: ecreased breath soundDistant sounds, no murmuror gallops were appreciated. LUNGS: Decreased breath sounds at both bases. ABDOMEN. Diffuse tenderness on palpation. EXT; No calf tenderness, 1+ ankle edama. Abnormal Lab Results 01/17/17 01/17/17 01/17/17 05:30 05:30 05:30 WBC 27.2 H RBC 3.13 L Hgb 10.1 L Hct 30.9 L MCV 98.8 H Plt Count 435 H Neutrophils % 89.0 H Lymphocytes % 4.0 L Monocytes % 1.0 L Nucleated RBCs 5 H INR 1.41 H PTT (Actin FS) ABG pCO2 at Pt Temp ABG pO2 at Pt Temp ABG HCO3 ABG O2 Content ABG Base Excess Chloride 112 H BUN 33 H Creatinine 1.2 H Total Protein 4.7 L Albumin 1.7 L 01/17/17 01/17/17 13:35 13:43 WBC RBC Hgb Hct MCV Plt Count Neutrophils % Lymphocytes % Monocytes % Nucleated RBCs INR PTT (Actin FS) 109.3 H D ABG pCO2 at Pt Temp 34.3 L ABG pO2 at Pt Temp 114.0 H ABG HCO3 21.0 L ABG O2 Content 13.2 L ABG Base Excess -2.7 L Chloride BUN Creatinine Total Protein Albumin 1. Severe LV systolic DYSfunction.. 2. Sepsis. 3. Ruptured diverticulits. 4. Colostomy. 5. H/o Hypertension. 6. Elevated trops. 7. CLBBB. 8. Ventricular premature beats. Recommendation: 1. Switch to oral betablockers when feasible. 2. Add LINA or ARB. Prognosis: critical.
[2017-01-18] MEDS: METOPROLOL TARTRATE 5 MG/5 ML VIAL IVPB SCH ×3 (02:42→17:07)
[2017-01-18] MEDS ORDERED: PT OWN MED DRAWER 7, Y5N ONE ×2 (06:00→15:47)
[2017-01-18] MEDS: ALBUTEROL SO4 2.5/IPRATROPIUM 0.5 INH SOL 3 ML VIAL.NEB. NEB SCH ×5 (06:01→23:16)
[2017-01-18] MEDS: MEROPENEM 1 GM in DEXTROSE 5%-WATER - 100 ML IVPB SCH ×2 (06:01→17:07)
[2017-01-18 06:29] LABS: MCHC 32.1 g/dl (32.0-36.0); MEAN CELL VOLUME 99.6 fl (80-96); MEAN PLT VOLUME 8.9 fl (7.5-11.1); PLATELET COUNT 472 K/MM3 (134-434); RDW 14.4 % (11.6-15.6); WHITE BLOOD COUNT 23.7 K/mm3 (4.0-10.0)
--- NOTE | 2017-01-18 06:48 | PN ---
Progress Note (short form) - Note Progress Note: PULMONARY/CRITICAL CARE FOLLOW UP: Progress Note: SUBJECTIVE: Patient seen and examined in the ICU CTAP yesterday with new fluid collection L aldo pelvis c/f abcess wbc remains high, slightly down trending this morning low grade temp but hemodyanmically stable cr cont to down trend nicely Current Medications Acetaminophen (Ofirmev Injection -) 1,000 mg IVPB Q6H PRN PRN Reason: FEVER Last Admin: 01/17/17 18:18 Dose: 1,000 mg Albuterol/Ipratropium (Duoneb -) 1 amp NEB QIDR DAVID Last Admin: 01/18/17 06:01 Dose: 1 amp Heparin Sodium (Porcine) (Heparin -) 1,000 unit IVPUSH PRN PRN PRN Reason: Heparin Last Admin: 01/17/17 23:46 Dose: 1,000 unit Heparin Sodium (Porcine) (Heparin -) 5,000 unit IVPUSH PRN PRN PRN Reason: Heparin Last Admin: 01/17/17 07:41 Dose: 5,000 unit Famotidine/Sodium Chloride (Pepcid 20 Mg Premixed Ivpb -) 50 mls @ 100 mls/hr IVPB BID [facility] Last Admin: 01/17/17 22:23 Dose: 100 mls/hr Fluconazole (Diflucan 200 Mg/D5w Premixed Ivpb -) 100 mls @ 100 mls/hr IVPB DAILY [facility] Last Admin: 01/17/17 08:59 Dose: 100 mls/hr Heparin Sodium/Dextrose (Heparin Infusion -) 500 mls @ 20 mls/hr IVPB TITR DAVID ; 1,000 UNITS/HR PRN Reason: Protocol Last Titration: 01/17/17 23:46 Dose: 1,600 units/hr Meropenem 1 gm/ Dextrose 100 mls @ 100 mls/hr IVPB BID@0500,1700 [facility] PRN Reason: Protocol Last Admin: 01/18/17 06:01 Dose: 100 mls/hr Vancomycin HCl 1,250 mg/ (Dextrose) 250 mls @ 250 mls/hr IVPB DAILY [facility] PRN Reason: Protocol Last Admin: 01/17/17 09:26 Dose: 250 mls/hr Dextrose/Sodium Chloride (D5-1/2ns -) 1,000 mls @ 42 mls/hr IV ASDIR [facility] Last Admin: 01/17/17 13:00 Dose: 42 mls/hr Metoprolol Tartrate (Lopressor Injection -) 5 mg IVPB Q8H-IV DAVID Last Admin: 01/18/17 02:42 Dose: 5 mg Vital Signs Temp 97.8 F 01/18/17 02:09 Pulse 100 H 01/18/17 02:42 Resp 98 H 01/18/17 02:09 BP 128/61 01/18/17 02:42 Pulse Ox 94 L 01/17/17 22:00 Intake & Output 01/17/17 01/17/17 01/18/17 06:59 18:59 06:59 Intake Total 400 1163 Output Total 350 780 Balance 50 383 Weight 107.133 kg 107.8 kg Intake: IV 663 Heparin Infusion - 500 ml 285 @ 1,000 UNITS/HR 20 mls/ hr IVPB TITR DAVID Rx#: [id number] D5-1/2Ns - 1,000 ml @ 42 378 mls/hr IV ASDIR DAVID Rx#: [id number] IVPB 400 500 Output: Drainage 80 Abdomen 80 Urine 350 700 Jennings 350 700 Other: Voiding Method Indwelling Catheter Indwelling Catheter Indwelling Catheter Bowel Movement Yes Weight Measurement Method Built in [facility] Built in [facility] Constitutional: elderly woman lying in bed HEENT: PERRL Neck: Supple, Trachea Midline Cardiovascular: Irregular Respiratory: diminished, bibasular crackles Gastrointestinal: soft, non-tender Extremities: warm, no edema Integumentary: warm, dry Wound/Incision: Yes: Clean/Dry Neurological: Alert, oriented, non-focal Labs: CBC, BMP 01/18/17 05:15 Microbiology 01/16/17 05:40 Blood - Peripheral Venous Blood Culture - Preliminary NO GROWTH OBTAINED AFTER 24 HOURS, INCUBATION TO CONTINUE FOR 4 DAYS. 01/16/17 05:35 Blood - Peripheral Venous Blood Culture - Preliminary NO GROWTH OBTAINED AFTER 24 HOURS, INCUBATION TO CONTINUE FOR 4 DAYS. 01/15/17 09:15 Urine - Urine Jennings Urine Culture - Final NO GROWTH OBTAINED 01/13/17 08:45 Blood - Peripheral Venous Blood Culture - Preliminary NO GROWTH OBTAINED AFTER 72 HOURS, INCUBATION TO CONTINUE FOR 2 DAYS. 01/13/17 08:45 Blood - Peripheral Venous Blood Culture - Preliminary NO GROWTH OBTAINED AFTER 72 HOURS, INCUBATION TO CONTINUE FOR 2 DAYS. 01/09/17 21:05 Peritoneal Fluid Gram Stain - Final 01/09/17 21:05 Peritoneal Fluid Body Fluid Culture - Final Escherichia Coli 01/09/17 21:05 Peritoneal Fluid Anaerobic Culture - Final NO ANAEROBES WERE ISOLATED 01/09/17 15:13 Urine - Urine - Catheterized Urine Culture - Final NO GROWTH OBTAINED Assessment/Plan Perforated diverticulitis S/P Sigmoid resection with colostomy. Diverticulosis Suspected Pulmonary vascular congestion Peritonitis History of PE/DVT AF -Likely needs IR drain vs Re-op given new fluid collection with air/fluid level -ABX per ID -IVF -PO as tolerated unless going to OR, then NPO -Strict I&O -Pain control -Incentive Spirometry, OOB -NIPPV support -IV Heparin -Rate control Continue ICU monitoring Axel Alejandro Pulm/Critical Care [employer] [id number] CCT
[2017-01-18 07:03] LABS: ANION GAP 5 (8-16); CALCIUM 8.7 mg/dL (8.5-10.1); CO2 25 mmol/L (21-32); CREATININE 1.2 mg/dL (0.55-1.02); GLUCOSE,RANDOM 132 mg/dL (74-106); PHOSPHOROUS 2.9 mg/dL (2.5-4.9)
[2017-01-18 08:39] LABS: HYPOCHROMIA FEW; PLATELET ESTIMATE INCREASED (NORMAL); POLYCHROMASIA FEW
[2017-01-18] MEDS: FLUCONAZOLE 200 MG/D5W 100 ML IVPB SCH (09:07)
[2017-01-18] MEDS: FAMOTIDINE 20 MG/50 ML IVPB 50 ML IVPB SCH ×2 (09:08→21:23)
[2017-01-18] MEDS: VANCOMYCIN 1,250 MG in DEXTROSE 5%-WATER - 250 ML IVPB SCH (10:44)
--- NOTE | 2017-01-18 11:28 | PN ---
Progress Note, Physician Chief Complaint: No new complaints History of Present Illness: S/P colostomy for perforated colon Sepsis on IV antibiotics Large intraabdominal collection ,may need CT guided Aspiration - Current Medication List Current Medications: Active Medications Acetaminophen (Ofirmev Injection -) 1,000 mg IVPB Q6H PRN PRN Reason: FEVER Last Admin: 01/17/17 18:18 Dose: 1,000 mg Albuterol/Ipratropium (Duoneb -) 1 amp NEB QIDR DAVID Last Admin: 01/18/17 11:15 Dose: 1 amp Heparin Sodium (Porcine) (Heparin -) 1,000 unit IVPUSH PRN PRN PRN Reason: Heparin Last Admin: 01/17/17 23:46 Dose: 1,000 unit Heparin Sodium (Porcine) (Heparin -) 5,000 unit IVPUSH PRN PRN PRN Reason: Heparin Last Admin: 01/17/17 07:41 Dose: 5,000 unit Famotidine/Sodium Chloride (Pepcid 20 Mg Premixed Ivpb -) 50 mls @ 100 mls/hr IVPB BID [facility] Last Admin: 01/18/17 09:08 Dose: 100 mls/hr Fluconazole (Diflucan 200 Mg/D5w Premixed Ivpb -) 100 mls @ 100 mls/hr IVPB DAILY [facility] Last Admin: 01/18/17 09:07 Dose: 100 mls/hr Heparin Sodium/Dextrose (Heparin Infusion -) 500 mls @ 20 mls/hr IVPB TITR DAVID ; 1,000 UNITS/HR PRN Reason: Protocol Last Titration: 01/18/17 07:07 Dose: 1,550 units/hr Meropenem 1 gm/ Dextrose 100 mls @ 100 mls/hr IVPB BID@0500,1700 [facility] PRN Reason: Protocol Last Admin: 01/18/17 06:01 Dose: 100 mls/hr Vancomycin HCl 1,250 mg/ (Dextrose) 250 mls @ 250 mls/hr IVPB DAILY [facility] PRN Reason: Protocol Last Admin: 01/18/17 10:44 Dose: 250 mls/hr Dextrose/Sodium Chloride (D5-1/2ns -) 1,000 mls @ 42 mls/hr IV ASDIR [facility] Last Admin: 01/17/17 13:00 Dose: 42 mls/hr Metoprolol Tartrate (Lopressor Injection -) 5 mg IVPB Q8H-IV DAVID Last Admin: 01/18/17 09:08 Dose: 5 mg - Objective Vital Signs: Vital Signs Temperature 99.1 F 01/18/17 10:00 Pulse Rate 83 01/18/17 11:15 Respiratory Rate 21 01/18/17 10:00 Blood Pressure 131/61 01/18/17 10:00 O2 Sat by Pulse Oximetry (%) 95 01/18/17 11:15 Constitutional: Yes: Calm Eyes: Yes: WNL HENT: Yes: WNL Neck: Yes: WNL, Rigid Cardiovascular: Yes: WNL, Regular Rate and Rhythm Respiratory: Yes: On Nasal O2, On Venti-Mask Gastrointestinal: Yes: Hypoactive Bowel Sounds ...Rectal Exam: Yes: Deferred Genitourinary: Yes: Jennings Present Musculoskeletal: Yes: Muscle Weakness Neurological: Yes: Alert Labs: CBC, BMP 01/18/17 05:15 01/18/17 05:15 INR, PTT INR 1.41 (0.82-1.09) H 01/17/17 05:30 Assessment/Plan Continue same trt
[2017-01-18] MEDS: DEXTROSE 5%-0.45% SALINE 1,000 ML IV SCH (14:00)
--- NOTE | 2017-01-18 14:49 | PN ---
Progress Note (short form) - Note Progress Note: Covering for Dr. Taqueria Prado 81yo morbidly obese F with multiple medical problems POD 9 s/p Nathanael's procedure for perforated diverticulitis with abscess. CT done Thursday showed somewhat increased central collection with contained air and fluid, as well as a collection at the left inferior colic gutter in LLQ. No extravasation of contrast into these. Ostomy has been functioning, though output is liquid brown and not formed stool. JAMES drain with brownish drainage, 80ml yesterday. Midline incision is packed open. Drain is near central collection on CT, but LLQ collection is not adjacent. Heparin drip for afib. On antibiotics, Vanco, Meropenem and Diflucan. Pt offers no complaints. Indicates some pain but not too bad. On venti-mask O2. Vital Signs Period Temp Pulse Resp BP Sys/Riley Pulse Ox Last 24 Hr 97.8 F-99.2 F 81-115 20-27 106-142/49-89 94-98 Intake & Output 01/17/17 01/18/17 01/18/17 23:59 07:59 15:59 Intake Total 438 965 Output Total 155 355 Balance 283 610 Weight 237 lb 10.533 oz Intake: IV 288 815 Heparin Infusion - 500 ml 120 374 @ 1,000 UNITS/HR 20 mls/ hr IVPB TITR DAVID Rx#: [id number] D5-1/2Ns - 1,000 ml @ 42 168 441 mls/hr IV ASDIR DAVID Rx#: [id number] IVPB 150 150 Output: Drainage 5 5 Abdomen 5 5 Urine 150 350 Jennings 150 350 Other: Voiding Method Indwelling Catheter Indwelling Catheter Indwelling Catheter Bowel Movement Yes Weight Measurement Method Built in [facility] PE: awake, more than yesterday central line in R neck morbidly obese abdomen soft, obese, mildly tender diffusely but more in lower aspects, no rebound/guarding ostomy pink, patent, productive of small amount of liquid brown stool in bag midline incision dressing changed with saline-dampened Kerlix gauze and covered with gauze/ABD and tape wound base is mostly yellow/fatty and fairly dry, no significant granulation yet ; upper wound also dry JAMES dressing clean and dry, tubing stripped, brownish drainage in bulb CBCD WBC 23.7 K/mm3 (4.0-10.0) H 01/18/17 05:15 RBC 3.35 M/mm3 (3.60-5.2) L 01/18/17 05:15 Hgb 10.7 GM/dL (10.7-15.3) 01/18/17 05:15 Hct 33.4 % (32.4-45.2) 01/18/17 05:15 MCV 99.6 fl (80-96) H 01/18/17 05:15 MCHC 32.1 g/dl (32.0-36.0) 01/18/17 05:15 RDW 14.4 % (11.6-15.6) 01/18/17 05:15 Plt Count 472 K/MM3 (134-434) H 01/18/17 05:15 MPV 8.9 fl (7.5-11.1) 01/18/17 05:15 CMP Sodium 143 mmol/L (136-145) 01/18/17 05:15 Potassium 3.9 mmol/L (3.5-5.1) 01/18/17 05:15 Chloride 113 mmol/L (98-107) H 01/18/17 05:15 Carbon Dioxide 25 mmol/L (21-32) 01/18/17 05:15 Anion Gap 5 (8-16) L 01/18/17 05:15 BUN 32 mg/dL (7-18) H 01/18/17 05:15 Creatinine 1.2 mg/dL (0.55-1.02) H 01/18/17 05:15 Creat Clearance w eGFR 43.01 (>60) 01/17/17 05:30 Calcium 8.7 mg/dL (8.5-10.1) 01/18/17 05:15 Total Bilirubin 0.8 mg/dL (0.2-1.0) 01/17/17 05:30 AST 29 U/L (15-37) 01/17/17 05:30 ALT 19 U/L (12-78) D 01/17/17 05:30 Alkaline Phosphatase 67 U/L (45-117) 01/17/17 05:30 Total Protein 4.7 g/dl (6.4-8.2) L 01/17/17 05:30 Albumin 1.7 g/dl (3.4-5.0) L 01/17/17 05:30 INR, PTT INR 1.41 (0.82-1.09) H 01/17/17 05:30 BUN/Cr stable wbc down slightly but remains elevated PTT 79.5 (pt on heparin drip) A/P: POD9 s/p Nathanael's for perforated diverticulitis with abscess intraabdominal collections on CT discuss with IR in am regarding percutaneous drainage - will need to hold heparin drip for procedure NPO for now IV hydration continue antibiotics as per JACQUIE Kasper MD This patient is critically ill; time spent reviewing chart, patient exam and documentation is 35 mins. Problem List - Problems (1) Diverticulitis of large intestine with perforation and abscess without bleeding Code(s): K57.20 - DVTRCLI OF LG INT W PERFORATION AND ABSCESS W/O BLEEDING (2) Intra-abdominal abscess post-procedure Code(s): T81.4XXA - INFECTION FOLLOWING A PROCEDURE, INITIAL ENCOUNTER K65.1 - PERITONEAL ABSCESS Qualifiers: Encounter type: initial encounter Qualified Code(s): T81.4XXA - Infection following a procedure, initial encounter; K65.1 - Peritoneal abscess (3) Sepsis Code(s): A41.9 - SEPSIS, UNSPECIFIED ORGANISM Qualifiers: Sepsis type: sepsis due to unspecified organism Qualified Code(s): A41.9 - Sepsis, unspecified organism (4) Atrial fibrillation Code(s): I48.91 - UNSPECIFIED ATRIAL FIBRILLATION Qualifiers: Atrial fibrillation type: chronic Qualified Code(s): I48.2 - Chronic atrial fibrillation
[2017-01-18] MEDS: HEPARIN INFUSION - 500 ML IVPB SCH (17:05)
--- NOTE | 2017-01-18 22:06 | PN ---
Progress Note, Physician History of Present Illness: Pt responsive, NAD BM reported by RN - Current Medication List Current Medications: Active Medications Acetaminophen (Ofirmev Injection -) 1,000 mg IVPB Q6H PRN PRN Reason: FEVER Last Admin: 01/17/17 18:18 Dose: 1,000 mg Albuterol/Ipratropium (Duoneb -) 1 amp NEB QIDR DAVID Last Admin: 01/18/17 19:22 Dose: 1 amp Heparin Sodium (Porcine) (Heparin -) 1,000 unit IVPUSH PRN PRN PRN Reason: Heparin Last Admin: 01/17/17 23:46 Dose: 1,000 unit Heparin Sodium (Porcine) (Heparin -) 5,000 unit IVPUSH PRN PRN PRN Reason: Heparin Last Admin: 01/17/17 07:41 Dose: 5,000 unit Famotidine/Sodium Chloride (Pepcid 20 Mg Premixed Ivpb -) 50 mls @ 100 mls/hr IVPB BID [facility] Last Admin: 01/18/17 21:23 Dose: 100 mls/hr Fluconazole (Diflucan 200 Mg/D5w Premixed Ivpb -) 100 mls @ 100 mls/hr IVPB DAILY [facility] Last Admin: 01/18/17 09:07 Dose: 100 mls/hr Heparin Sodium/Dextrose (Heparin Infusion -) 500 mls @ 20 mls/hr IVPB TITR DAVID ; 1,000 UNITS/HR PRN Reason: Protocol Last Admin: 01/18/17 17:05 Dose: 31 mls/hr Meropenem 1 gm/ Dextrose 100 mls @ 100 mls/hr IVPB BID@0500,1700 [facility] PRN Reason: Protocol Last Admin: 01/18/17 17:07 Dose: 100 mls/hr Vancomycin HCl 1,250 mg/ (Dextrose) 250 mls @ 250 mls/hr IVPB DAILY [facility] PRN Reason: Protocol Last Admin: 01/18/17 10:44 Dose: 250 mls/hr Dextrose/Sodium Chloride (D5-1/2ns -) 1,000 mls @ 42 mls/hr IV ASDIR [facility] Last Admin: 01/18/17 14:00 Dose: 42 mls/hr Metoprolol Tartrate (Lopressor Injection -) 5 mg IVPB Q8H-IV DAVID Last Admin: 01/18/17 17:07 Dose: 5 mg - Objective Vital Signs: Vital Signs Temperature 97.9 F 01/18/17 14:00 Pulse Rate 81 01/18/17 18:00 Respiratory Rate 22 01/18/17 18:00 Blood Pressure 112/53 01/18/17 18:00 O2 Sat by Pulse Oximetry (%) 93 L 01/18/17 19:22 Constitutional: Yes: No Distress Cardiovascular: Yes: WNL Respiratory: Yes: WNL Gastrointestinal: Yes: Soft Integumentary: Yes: Erythema (Left forearm erythema with slightly pustular center) Labs: CBC, BMP 01/18/17 05:15 01/18/17 05:15 INR, PTT INR 1.41 (0.82-1.09) H 01/17/17 05:30 Problem List - Problems (1) H/O partial resection of colon Code(s): Z90.49 - ACQUIRED ABSENCE OF OTHER SPECIFIED PARTS OF DIGESTIVE TRACT (2) Intra-abdominal abscess post-procedure Code(s): T81.4XXA - INFECTION FOLLOWING A PROCEDURE, INITIAL ENCOUNTER K65.1 - PERITONEAL ABSCESS Qualifiers: Encounter type: initial encounter Qualified Code(s): T81.4XXA - Infection following a procedure, initial encounter; K65.1 - Peritoneal abscess (3) Perforated bowel Code(s): K63.1 - PERFORATION OF INTESTINE (NONTRAUMATIC) (4) Severe sepsis Code(s): A41.9 - SEPSIS, UNSPECIFIED ORGANISM R65.20 - SEVERE SEPSIS WITHOUT SEPTIC SHOCK Assessment/Plan Intestinal Perforation Peritoneal abscesses Leukocytosis Lt arm soft tissue infection -- for possible CT guided asp or abd collections -- continue current antibiotics supportive care
[2017-01-19] MEDS ORDERED: PT OWN MED DRAWER 7, Y5N ONE ×3 (01:01→16:09)
[2017-01-19] MEDS: METOPROLOL TARTRATE 5 MG/5 ML VIAL IVPB SCH ×3 (02:35→18:53)
[2017-01-19] MEDS: MEROPENEM 1 GM in DEXTROSE 5%-WATER - 100 ML IVPB SCH ×2 (05:50→17:00)
[2017-01-19] MEDS: ALBUTEROL SO4 2.5/IPRATROPIUM 0.5 INH SOL 3 ML VIAL.NEB. NEB SCH ×4 (06:15→22:54)
[2017-01-19] MEDS: HEPARIN INFUSION - 500 ML IVPB SCH ×2 (06:18→19:45)
[2017-01-19] MEDS ORDERED: HEPARIN INFUSION - 500 ML IVPB ONE (06:20)
[2017-01-19 06:44] LABS: MCH 32.8 pg (25.7-33.7); MCHC 32.9 g/dl (32.0-36.0); MEAN CELL VOLUME 99.7 fl (80-96); MEAN PLT VOLUME 8.8 fl (7.5-11.1); PLATELET COUNT 526 K/MM3 (134-434); RDW 14.7 % (11.6-15.6); WHITE BLOOD COUNT 19.6 K/mm3 (4.0-10.0)
[2017-01-19 06:59] LABS: ANION GAP 8 (8-16); CALCIUM 8.6 mg/dL (8.5-10.1); CO2 23 mmol/L (21-32); CREATININE 1.1 mg/dL (0.55-1.02); GLUCOSE,RANDOM 125 mg/dL (74-106); MAGNESIUM 2.1 mg/dL (1.8-2.4); PHOSPHOROUS 3.3 mg/dL (2.5-4.9)
[2017-01-19 07:16] LABS: ARTERIAL BLD GAS O2 SATURATION 96.4 % (90-98.9); ARTERIAL BLOOD GAS HCO3 21.9 meq/L (22-26); ARTERIAL BLOOD GAS PO2 84.4 mmHg (68-100); ARTERIAL BLOOD GAS pH 7.35 (7.35-7.45)
[2017-01-19 07:24] LABS: ALLENS TEST POSITIVE; ART PUNCT SITE RIGHT BRACHIAL; LPM/O2% 70%; PT. ON O2? YES; TYPE OF O2 BIPAP
[2017-01-19 07:25] LABS: MECH. VENT. BIPAP; VENT RATE 14; VT/PRESS 14/7
--- NOTE | 2017-01-19 09:00 | PN ---
Progress Note, Physician Chief Complaint: Feels tired History of Present Illness: On Bipap - Current Medication List Current Medications: Active Medications Acetaminophen (Ofirmev Injection -) 1,000 mg IVPB Q6H PRN PRN Reason: FEVER Last Admin: 01/17/17 18:18 Dose: 1,000 mg Albuterol/Ipratropium (Duoneb -) 1 amp NEB QIDR DAVID Last Admin: 01/19/17 06:15 Dose: 1 amp Heparin Sodium (Porcine) (Heparin -) 1,000 unit IVPUSH PRN PRN PRN Reason: Heparin Last Admin: 01/17/17 23:46 Dose: 1,000 unit Heparin Sodium (Porcine) (Heparin -) 5,000 unit IVPUSH PRN PRN PRN Reason: Heparin Last Admin: 01/17/17 07:41 Dose: 5,000 unit Famotidine/Sodium Chloride (Pepcid 20 Mg Premixed Ivpb -) 50 mls @ 100 mls/hr IVPB BID [facility] Last Admin: 01/18/17 21:23 Dose: 100 mls/hr Fluconazole (Diflucan 200 Mg/D5w Premixed Ivpb -) 100 mls @ 100 mls/hr IVPB DAILY [facility] Last Admin: 01/18/17 09:07 Dose: 100 mls/hr Heparin Sodium/Dextrose (Heparin Infusion -) 500 mls @ 20 mls/hr IVPB TITR DAVID ; 1,000 UNITS/HR PRN Reason: Protocol Last Admin: 01/19/17 06:18 Dose: 31 mls/hr Meropenem 1 gm/ Dextrose 100 mls @ 100 mls/hr IVPB BID@0500,1700 [facility] PRN Reason: Protocol Last Admin: 01/19/17 05:50 Dose: 100 mls/hr Vancomycin HCl 1,250 mg/ (Dextrose) 250 mls @ 250 mls/hr IVPB DAILY [facility] PRN Reason: Protocol Last Admin: 01/18/17 10:44 Dose: 250 mls/hr Dextrose/Sodium Chloride (D5-1/2ns -) 1,000 mls @ 42 mls/hr IV ASDIR [facility] Last Admin: 01/18/17 14:00 Dose: 42 mls/hr Metoprolol Tartrate (Lopressor Injection -) 5 mg IVPB Q8H-IV DAVID Last Admin: 01/19/17 02:35 Dose: 5 mg - Objective Vital Signs: Vital Signs Temperature 99 F 01/19/17 06:00 Pulse Rate 83 01/19/17 06:00 Respiratory Rate 24 01/19/17 06:00 Blood Pressure 138/71 01/19/17 06:00 O2 Sat by Pulse Oximetry (%) 94 L 01/19/17 05:35 Constitutional: Yes: Mild Distress Eyes: Yes: WNL HENT: Yes: WNL Neck: Yes: WNL Cardiovascular: Yes: Regular Rate and Rhythm Respiratory: Yes: On BiPap Gastrointestinal: Yes: Hypoactive Bowel Sounds ...Rectal Exam: Yes: Deferred Genitourinary: Yes: Jennings Present Labs: CBC, BMP 01/19/17 05:15 01/19/17 05:15 INR, PTT INR 1.41 (0.82-1.09) H 01/17/17 05:30 Assessment/Plan May need Ct guided aspiration of the absces Xray chest
[2017-01-19] MEDS: FAMOTIDINE 20 MG/50 ML IVPB 50 ML IVPB SCH ×2 (09:33→21:52)
[2017-01-19] MEDS: FLUCONAZOLE 200 MG/D5W 100 ML IVPB SCH (09:34)
[2017-01-19] MEDS: VANCOMYCIN 1,250 MG in DEXTROSE 5%-WATER - 250 ML IVPB SCH (09:36)
--- NOTE | 2017-01-19 09:38 | PN ---
Progress Note (short form) - Note Progress Note: Attending Surgeon POD #10 s/p Hartmans for perforated sigmoid diverticulitis w/ abscess Remains in ICU; on BIPAP VSS AF abdomen-soft; NT; drain in place; no change in output; wound clean; ostomy viable; liquid output WBC has decreased; CT findings reviewed IMP: POD # 10 s/p Hartmans PLAN: CT guided drainage of collection; continue present tx. Taqueria Prado MD FACS
--- NOTE | 2017-01-19 10:11 | PN ---
Progress Note, Physician History of Present Illness: patient on bipap looks lethargic responding wbc has trended down - Current Medication List Current Medications: Active Medications Acetaminophen (Ofirmev Injection -) 1,000 mg IVPB Q6H PRN PRN Reason: FEVER Last Admin: 01/17/17 18:18 Dose: 1,000 mg Albuterol/Ipratropium (Duoneb -) 1 amp NEB QIDR DAVID Last Admin: 01/19/17 06:15 Dose: 1 amp Heparin Sodium (Porcine) (Heparin -) 1,000 unit IVPUSH PRN PRN PRN Reason: Heparin Last Admin: 01/17/17 23:46 Dose: 1,000 unit Heparin Sodium (Porcine) (Heparin -) 5,000 unit IVPUSH PRN PRN PRN Reason: Heparin Last Admin: 01/17/17 07:41 Dose: 5,000 unit Famotidine/Sodium Chloride (Pepcid 20 Mg Premixed Ivpb -) 50 mls @ 100 mls/hr IVPB BID [facility] Last Admin: 01/19/17 09:33 Dose: 100 mls/hr Fluconazole (Diflucan 200 Mg/D5w Premixed Ivpb -) 100 mls @ 100 mls/hr IVPB DAILY [facility] Last Admin: 01/19/17 09:34 Dose: 100 mls/hr Heparin Sodium/Dextrose (Heparin Infusion -) 500 mls @ 20 mls/hr IVPB TITR DAVID ; 1,000 UNITS/HR PRN Reason: Protocol Last Admin: 01/19/17 06:18 Dose: 31 mls/hr Meropenem 1 gm/ Dextrose 100 mls @ 100 mls/hr IVPB BID@0500,1700 [facility] PRN Reason: Protocol Last Admin: 01/19/17 05:50 Dose: 100 mls/hr Vancomycin HCl 1,250 mg/ (Dextrose) 250 mls @ 250 mls/hr IVPB DAILY [facility] PRN Reason: Protocol Last Admin: 01/19/17 09:36 Dose: 250 mls/hr Dextrose/Sodium Chloride (D5-1/2ns -) 1,000 mls @ 42 mls/hr IV ASDIR [facility] Last Admin: 01/18/17 14:00 Dose: 42 mls/hr Metoprolol Tartrate (Lopressor Injection -) 5 mg IVPB Q8H-IV [facility]ID Last Admin: 01/19/17 09:34 Dose: 5 mg - Objective Vital Signs: Vital Signs Temperature 98.6 F 01/19/17 08:00 Pulse Rate 77 01/19/17 09:34 Respiratory Rate 22 01/19/17 08:00 Blood Pressure 135/56 01/19/17 09:34 O2 Sat by Pulse Oximetry (%) 94 L 01/19/17 05:35 Constitutional: Yes: No Distress, Other Cardiovascular: Yes: Regular Rate and Rhythm Respiratory: Yes: On BiPap, Poor Air Entry Gastrointestinal: Yes: Soft, Other (absent bowel sounds) Musculoskeletal: Yes: WNL Extremities: Yes: WNL Wound/Incision: Yes: Dressing Dry and Intact, Other Neurological: Yes: Alert, Other Labs: CBC, BMP 01/19/17 05:15 01/19/17 05:15 INR, PTT INR 1.41 (0.82-1.09) H 01/17/17 05:30 Assessment/Plan 81 y/o old with multiple medical problems with perforated bowel post op Perforated bowel Peritonitis Sepsis s/p ex-lap with sigmoid resection, colostomy Resolving JG Lactic acidosis AF h/o DVT/PE plan all the reports noted cx result noted plan to drain the collection continue abx rest as per icu continue as per surgery cc time 40 min
[2017-01-19 11:30] LABS: PLATELET ESTIMATE SLT INCREASED (NORMAL)
--- NOTE | 2017-01-19 15:39 | PN ---
Physical Exam: SUBJECTIVE: Patient seen and examined at bed side this morning. On BiPap. Didn' t speak much. Overnight, her saturation decreased, started on bipap. OBJECTIVE: Vital Signs Period Temp Pulse Resp BP Sys/Riley Pulse Ox Last 24 Hr 98.6 F-99.5 F 71-98 20-28 110-150/53-98 91-98 GENERAL: Elderly female, drowsy but arousable, in mild respiratory distress on Bipap. HEAD: Normal with no signs of trauma. EYES: No pallor or icterus. ENT: Ears normal, moist mucous membranes. NECK: Supple. LUNGS: B/L decreased breath sounds equal, bibasilar crackles, accessory muscle use +. HEART: Regular rate and rhythm, S1, S2 without murmur, rub or gallop. ABDOMEN: ostomy looks pink with good function. JAMES drain ,Soft, mildly tender, nondistended, normoactive bowel sounds, no guarding, no rebound, no hepatosplenomegaly, no masses. EXTREMITIES: 2+ pulses, warm, well-perfused, no edema. NEUROLOGICAL: No facial droop, difficult to assess her neuro status, gait not observed. PSYCH: Normal mood, normal affect. SKIN: Warm, dry, normal turgor, no rashes or lesions noted Laboratory Results - last 24 hr 01/19/17 01/19/17 01/19/17 05:15 05:15 05:15 WBC 19.6 H RBC 3.14 L Hgb 10.3 L Hct 31.3 L MCV 99.7 H MCH 32.8 MCHC 32.9 RDW 14.7 Plt Count 526 H MPV 8.8 Neutrophils % 85.0 H Lymphocytes % 5.0 L D Monocytes % 7.0 Myelocytes 3 H D Differential Comment Manual diff done Reactive Lymphocytes 9 Platelet Estimate Slt increased PTT (Actin FS) 69.3 H Puncture Site ABG pH ABG pCO2 at Pt Temp ABG pO2 at Pt Temp ABG HCO3 ABG O2 Sat (Measured) ABG O2 Content ABG Base Excess Jose A Test O2 Delivery Device Oxygen Flow Rate Vent Mode Vent Rate Mechanical Rate PEEP Pressure Support Vent Sodium 142 Potassium 4.1 Chloride 111 H Carbon Dioxide 23 Anion Gap 8 BUN 31 H Creatinine 1.1 H Random Glucose 125 H Calcium 8.6 Phosphorus 3.3 Magnesium 2.1 01/19/17 07:10 WBC RBC Hgb Hct MCV MCH MCHC RDW Plt Count MPV Neutrophils % Lymphocytes % Monocytes % Myelocytes Differential Comment Reactive Lymphocytes Platelet Estimate PTT (Actin FS) Puncture Site Right brachial ABG pH 7.35 ABG pCO2 at Pt Temp 41.1 ABG pO2 at Pt Temp 84.4 D ABG HCO3 21.9 L ABG O2 Sat (Measured) 96.4 ABG O2 Content 13.6 L ABG Base Excess -3.0 L Jose A Test Positive O2 Delivery Device Bipap Oxygen Flow Rate 70% Vent Mode S/t Vent Rate 14 Mechanical Rate Bipap PEEP 0.0 Pressure Support Vent 14/7 Sodium Potassium Chloride Carbon Dioxide Anion Gap BUN Creatinine Random Glucose Calcium Phosphorus Magnesium Active Medications Generic Name Dose Route Start Last Admin Trade Name Freq PRN Reason Stop Dose Admin Acetaminophen 1,000 mg 01/11/17 18:03 01/17/17 18:18 Ofirmev Injection - IVPB 1,000 mg Q6H PRN Administration FEVER Albuterol/Ipratropium 1 amp 01/11/17 00:00 01/19/17 11:00 Duoneb - NEB 1 amp QIDR DAVID Administration Heparin Sodium (Porcine) 1,000 unit 01/12/17 16:52 01/17/17 23:46 Heparin - IVPUSH 1,000 unit PRN PRN Administration Heparin Heparin Sodium (Porcine) 5,000 unit 01/12/17 16:52 01/17/17 07:41 Heparin - IVPUSH 5,000 unit PRN PRN Administration Heparin Famotidine/Sodium Chloride 50 mls @ 100 mls/hr 01/10/17 10:00 01/19/17 09:33 Pepcid 20 Mg Premixed Ivpb - IVPB 100 mls/hr BID DAVID Administration Fluconazole 100 mls @ 100 mls/hr 01/11/17 13:00 01/19/17 09:34 Diflucan 200 Mg/D5w Premixed Ivpb - IVPB 100 mls/hr DAILY DAVID Administration Heparin Sodium/Dextrose 500 mls @ 20 mls/hr 01/12/17 17:00 01/19/17 11:50 Heparin Infusion - IVPB 0 units/hr TITR DAVID Titration Protocol 1,000 UNITS/HR Meropenem 1 gm/ Dextrose 100 mls @ 100 mls/hr 01/15/17 17:00 01/19/17 05:50 IVPB 100 mls/hr BID@0500,1700 DAVID Administration Protocol Vancomycin HCl 1,250 mg/ 250 mls @ 250 mls/hr 01/16/17 19:45 01/19/17 09:36 Dextrose IVPB 250 mls/hr DAILY DAVID Administration Protocol Dextrose/Sodium Chloride 1,000 mls @ 42 mls/hr 01/17/17 11:45 01/18/17 14:00 D5-1/2ns - IV 42 mls/hr ASDIR DAVID Administration Metoprolol Tartrate 5 mg 01/11/17 15:20 01/19/17 09:34 Lopressor Injection - IVPB 5 mg Q8H-IV DAVID Administration ASSESSMENT/PLAN: Patient is 81 year old female with a history of diverticulosis presents to the ED with perforated diverticulitis now post op day 5 s/p sigmoid resection with colostomy. # Sepsis likely secondary to perforated diverticulitis s/p sigmoid resection with colostomy day 5 with an abdominal abscess Leukocytosis was not improving, lactic acid was high, CT abdomen/Pelvis showed a collection of fluid 9.7 cm x 3 cm Scheduled for IR guided drainange today. Leukocytosis is improving, today is 19.6 from 23.7 Continue IV Meropenam Day 5 Blood culture/Urine culture negative # NSTEMI after surgery On Heparin Drip Troponin trending down # Acute Kidney injury: Improving Creatinine 1.1 today Avoid nephrotoxic drugs # Acute hypoxic respiratory failure Currently on BiPAp CXR in AM Incentive spirometer as tolerated # Atrial fibrillation-rate controlled On Heparin Drip Rate control with metoprolol 5mg IV q8h # FEN: D5-1/2 NS @ 42mls/hr Electrolytes to be repeated tomorrow NPO for IR guided Abscess drainange. # Prophylaxis For DVT: On Heparin drip For GI: IV Famotidine 20mg BID # Code Status: Full Code # Dispo: Admitted in ICU. Continue ICU care Illness, Investigation and Plan of care explained to the family members. They verbalized understanding. Case seen and discussed with Dr. Anglin. Visit type - Emergency Visit Emergency Visit: Yes ED Registration Date: 01/09/17 Care time: The patient presented to the Emergency Department on the above date and was hospitalized for further evaluation of their emergent condition. - New Patient This patient is new to me today: No - Critical Care Critical Care patient: Yes Total Critical Care Time (in minutes): 35 Critical Care Statement: The care of this patient involved high complexity decision making to prevent further life threatening deterioration of the patient 's condition and/or to evalute & treat vital organ system(s) failure or risk of failure.
--- NOTE | 2017-01-19 17:35 | PN ---
Teaching Attending Note Name of Resident: Erika Higuera ATTENDING PHYSICIAN STATEMENT I saw and evaluated the patient. I reviewed the resident's note and discussed the case with the resident. I agree with the resident's findings and plan as documented. SUBJECTIVE: Patient seen and examined at bedside. More lethargic today and on NIPPV. Awaiting IR placement of drain due to intra-abdominal collection. No pressors. Intake & Output 01/16/17 01/17/17 01/18/17 01/19/17 23:59 23:59 23:59 23:59 Intake Total 2525 1263 2512 1084 Output Total 945 780 675 700 Balance 5321 046 9688 384 Weight 236 lb 3 oz 236 lb 3 oz 237 lb 10.533 oz 239 lb 3.225 oz Last Vital Signs Temp Pulse Resp BP Pulse Ox 99.0 F 90 26 H 150/73 95 01/19/17 14:00 01/19/17 14:00 01/19/17 14:00 01/19/17 14:00 01/19/17 14:00 Active Medications Acetaminophen (Ofirmev Injection -) 1,000 mg IVPB Q6H PRN PRN Reason: FEVER Last Admin: 01/17/17 18:18 Dose: 1,000 mg Albuterol/Ipratropium (Duoneb -) 1 amp NEB QIDR [facility] Last Admin: 01/19/17 11:00 Dose: 1 amp Heparin Sodium (Porcine) (Heparin -) 1,000 unit IVPUSH PRN PRN PRN Reason: Heparin Last Admin: 01/17/17 23:46 Dose: 1,000 unit Heparin Sodium (Porcine) (Heparin -) 5,000 unit IVPUSH PRN PRN PRN Reason: Heparin Last Admin: 01/17/17 07:41 Dose: 5,000 unit Famotidine/Sodium Chloride (Pepcid 20 Mg Premixed Ivpb -) 50 mls @ 100 mls/hr IVPB BID [facility] Last Admin: 01/19/17 09:33 Dose: 100 mls/hr Fluconazole (Diflucan 200 Mg/D5w Premixed Ivpb -) 100 mls @ 100 mls/hr IVPB DAILY [facility] Last Admin: 01/19/17 09:34 Dose: 100 mls/hr Heparin Sodium/Dextrose (Heparin Infusion -) 500 mls @ 20 mls/hr IVPB TITR [facility] ; 1,000 UNITS/HR PRN Reason: Protocol Last Titration: 01/19/17 11:50 Dose: 0 units/hr Meropenem 1 gm/ Dextrose 100 mls @ 100 mls/hr IVPB BID@0500,1700 DAVID PRN Reason: Protocol Last Admin: 01/19/17 05:50 Dose: 100 mls/hr Vancomycin HCl 1,250 mg/ (Dextrose) 250 mls @ 250 mls/hr IVPB DAILY DAVID PRN Reason: Protocol Last Admin: 01/19/17 09:36 Dose: 250 mls/hr Dextrose/Sodium Chloride (D5-1/2ns -) 1,000 mls @ 42 mls/hr IV ASDIR DAVID Last Admin: 01/18/17 14:00 Dose: 42 mls/hr Metoprolol Tartrate (Lopressor Injection -) 5 mg IVPB Q8H-IV DAVID Last Admin: 01/19/17 09:34 Dose: 5 mg Constitutional: Yes: Lethargic but arousbale, Mildly tachypneic on NIPPV Eyes: Yes: (-) Pallor (-) Icterus HENT: Yes: Normocephalic Neck: Yes: Supple, Trachea Midline Cardiovascular: Yes: Tachycardia, Pulse Irregular, S1, S2 Respiratory: Yes: Bilateral scattered Rhonchi and crackles Gastrointestinal: Yes: Soft, (+) BS, brownish discharge from drain, incision C/D /I, appropriately tender, ostomy pink with some output Genitourinary: Yes: Jennings Present Extremities: Yes: WNL Edema: No Integumentary: Yes: Tenting Wound/Incision: Yes: Clean/Dry Neurological: Yes: Alert, non-focal Psychiatric: Yes: Lethargy Labs: Laboratory Results - last 24 hr 01/19/17 01/19/17 01/19/17 05:15 05:15 05:15 WBC 19.6 H RBC 3.14 L Hgb 10.3 L Hct 31.3 L MCV 99.7 H MCH 32.8 MCHC 32.9 RDW 14.7 Plt Count 526 H MPV 8.8 Neutrophils % 85.0 H Lymphocytes % 5.0 L D Monocytes % 7.0 Myelocytes 3 H D Differential Comment Manual diff done Reactive Lymphocytes 9 Platelet Estimate Slt increased PTT (Actin FS) 69.3 H Puncture Site ABG pH ABG pCO2 at Pt Temp ABG pO2 at Pt Temp ABG HCO3 ABG O2 Sat (Measured) ABG O2 Content ABG Base Excess Jose A Test O2 Delivery Device Oxygen Flow Rate Vent Mode Vent Rate Mechanical Rate PEEP Pressure Support Vent Sodium 142 Potassium 4.1 Chloride 111 H Carbon Dioxide 23 Anion Gap 8 BUN 31 H Creatinine 1.1 H Random Glucose 125 H Calcium 8.6 Phosphorus 3.3 Magnesium 2.1 01/19/17 07:10 WBC RBC Hgb Hct MCV MCH MCHC RDW Plt Count MPV Neutrophils % Lymphocytes % Monocytes % Myelocytes Differential Comment Reactive Lymphocytes Platelet Estimate PTT (Actin FS) Puncture Site Right brachial ABG pH 7.35 ABG pCO2 at Pt Temp 41.1 ABG pO2 at Pt Temp 84.4 D ABG HCO3 21.9 L ABG O2 Sat (Measured) 96.4 ABG O2 Content 13.6 L ABG Base Excess -3.0 L Jose A Test Positive O2 Delivery Device Bipap Oxygen Flow Rate 70% Vent Mode S/t Vent Rate 14 Mechanical Rate Bipap PEEP 0.0 Pressure Support Vent 14/7 Sodium Potassium Chloride Carbon Dioxide Anion Gap BUN Creatinine Random Glucose Calcium Phosphorus Magnesium Assessment/Plan Intra-abdominal collection Perforated diverticulitis S/P Sigmoid resection with colostomy. Diverticulosis Suspected Pulmonary vascular congestion Peritonitis History of PE/DVT JG suspected IR for drainage catheter placement ABX per ID IVF PO as tolerated Strict I&O Pain control Incentive Spirometry if able NIPPV support IV Heparin Dr Anglin Critical Care Time/MDM Note Total Critical Care Time: 35 Critical Care Statement: The care of this patient involved high complexity decision making to prevent further life threatening deterioration of the patient 's condition and/or to evaluate & treat vital organ system(s) failure or risk of failure.
[2017-01-19] MEDS: DEXTROSE 5%-0.45% SALINE 1,000 ML IV SCH (19:00)
--- NOTE | 2017-01-19 20:07 | PN ---
Progress Note (short form) - Note Progress Note: 81 year female with H/O hypertension,admitted with ruptured diverticulitis S/P colostomy.Severe LV systolic dysfunction. Patient is lethargic and confused,has intra abdominal collection of fluid. off pressors,in sinus rhythm. Active Medications Generic Name Dose Route Start Last Admin Trade Name Freq PRN Reason Stop Dose Admin Acetaminophen 1,000 mg 01/11/17 18:03 01/17/17 18:18 Ofirmev Injection - IVPB 1,000 mg Q6H PRN Administration FEVER Albuterol/Ipratropium 1 amp 01/11/17 00:00 01/19/17 17:35 Duoneb - NEB Not Given QIDR DAVID Heparin Sodium (Porcine) 1,000 unit 01/12/17 16:52 01/17/17 23:46 Heparin - IVPUSH 1,000 unit PRN PRN Administration Heparin Heparin Sodium (Porcine) 5,000 unit 01/12/17 16:52 01/17/17 07:41 Heparin - IVPUSH 5,000 unit PRN PRN Administration Heparin Famotidine/Sodium Chloride 50 mls @ 100 mls/hr 01/10/17 10:00 01/19/17 09:33 Pepcid 20 Mg Premixed Ivpb - IVPB 100 mls/hr BID DAVID Administration Fluconazole 100 mls @ 100 mls/hr 01/11/17 13:00 01/19/17 09:34 Diflucan 200 Mg/D5w Premixed Ivpb - IVPB 100 mls/hr DAILY DAVID Administration Heparin Sodium/Dextrose 500 mls @ 20 mls/hr 01/12/17 17:00 01/19/17 11:50 Heparin Infusion - IVPB 0 units/hr TITR DAVID Titration Protocol 1,000 UNITS/HR Meropenem 1 gm/ Dextrose 100 mls @ 100 mls/hr 01/15/17 17:00 01/19/17 17:00 IVPB 100 mls/hr BID@0500,1700 DAVID Administration Protocol Vancomycin HCl 1,250 mg/ 250 mls @ 250 mls/hr 01/16/17 19:45 01/19/17 09:36 Dextrose IVPB 250 mls/hr DAILY DAVID Administration Protocol Dextrose/Sodium Chloride 1,000 mls @ 42 mls/hr 01/17/17 11:45 01/18/17 14:00 D5-1/2ns - IV 42 mls/hr ASDIR DAVID Administration Metoprolol Tartrate 5 mg 01/11/17 15:20 01/19/17 18:53 Lopressor Injection - IVPB 5 mg Q8H-IV DAVID Administration 81 year old confused and lethargic female, is arousable and is febrile. Vital Signs - 8 hr 01/19/17 01/19/17 01/19/17 14:00 16:00 17:39 Temperature 99.0 F Pulse Rate 90 82 88 Pulse Rate [ Right Upper Arm ] Respiratory 26 H 26 H 30 H Rate Respiratory Rate [Right Upper Arm] Blood Pressure 150/73 135/50 137/73 Blood Pressure [Right Upper Arm] O2 Sat by Pulse 95 100 Oximetry (%) O2 Sat by Pulse Oximetry (%) [ Right Upper Arm ] 01/19/17 01/19/17 01/19/17 17:49 17:55 18:00 Temperature 98.7 F Pulse Rate 83 72 Pulse Rate [ 79 Right Upper Arm ] Respiratory 30 H 21 Rate Respiratory 31 H Rate [Right Upper Arm] Blood Pressure 141/72 139/52 Blood Pressure 137/73 [Right Upper Arm] O2 Sat by Pulse 100 Oximetry (%) O2 Sat by Pulse 100 Oximetry (%) [ Right Upper Arm ] 01/19/17 18:53 Temperature Pulse Rate 72 Pulse Rate [ Right Upper Arm ] Respiratory Rate Respiratory Rate [Right Upper Arm] Blood Pressure 139/52 Blood Pressure [Right Upper Arm] O2 Sat by Pulse Oximetry (%) O2 Sat by Pulse Oximetry (%) [ Right Upper Arm ] NECK: Supple, NO JVD,+HJR, carotids 1+ HEART: Heart sounds are diastant, no murmuror gallops were appreciated. LUNGS: Decreased breath sounds at both bases. ABDOMEN. Diffuse tenderness on palpation. EXT; No calf tenderness, 2+bilateral ankle edema 1. Severe LV systolic dysfunction.. 2. Sepsis. 3. Ruptured diverticulits. 4. Colostomy. 5. H/o Hypertension. 6. Abdominal fluid collection. 7. CLBBB. 8. Ventricular premature beats. Recommendation: 1. 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 continue IV betablockers. Prognosis: critical.
[2017-01-20] MEDS: METOPROLOL TARTRATE 5 MG/5 ML VIAL IVPB SCH ×3 (02:38→18:52)
[2017-01-20] MEDS: MEROPENEM 1 GM in DEXTROSE 5%-WATER - 100 ML IVPB SCH ×2 (04:14→17:30)
[2017-01-20] MEDS: ALBUTEROL SO4 2.5/IPRATROPIUM 0.5 INH SOL 3 ML VIAL.NEB. NEB SCH ×4 (06:29→23:05)
[2017-01-20 06:34] LABS: MCH 32.4 pg (25.7-33.7); MEAN CELL VOLUME 101.2 fl (80-96); MEAN PLT VOLUME 8.7 fl (7.5-11.1); PLATELET COUNT 518 K/MM3 (134-434); RDW 15.2 % (11.6-15.6); WHITE BLOOD COUNT 17.3 K/mm3 (4.0-10.0)
[2017-01-20] MEDS: HEPARIN INFUSION - 500 ML IVPB SCH ×3 (08:15→18:45)
[2017-01-20 08:24] LABS: ALBUMIN 1.9 g/dl (3.4-5.0); ANION GAP 7 (8-16); CALCIUM 8.8 mg/dL (8.5-10.1); CO2 25 mmol/L (21-32); CREATININE 1.1 mg/dL (0.55-1.02); GLUCOSE,RANDOM 125 mg/dL (74-106); MAGNESIUM 2.1 mg/dL (1.8-2.4); PHOSPHOROUS 3.8 mg/dL (2.5-4.9); SGOT/AST 23 U/L (15-37); SGPT/ALT 17 U/L (12-78); TOT PROT 4.9 g/dl (6.4-8.2)
[2017-01-20 08:26] LABS: ALK PHOS 67 U/L (45-117); BILIRUBIN,TOTAL 0.5 mg/dL (0.2-1.0)
--- NOTE | 2017-01-20 08:37 | PN ---
Progress Note (short form) - Note Progress Note: POD #11 s/p Hartmans for perforated sigmoid diverticulitis w/abscess Remains in ICU; on BIPAP. No acute events over past 24 hrs per RN notes. On heparin gtt and Meropenem. S/p CT guided drain (01/19/17) secondary to abscess formation. Last Vital Signs Temp Pulse Resp BP Pulse Ox 97.8 F 78 20 133/72 99 01/20/17 06:00 01/20/17 06:00 01/20/17 06:00 01/20/17 06:00 01/19/17 22:55 WBC TREND 01/18/17 01/19/17 01/20/17 05:15 05:15 05:15 WBC 23.7 H 19.6 H 17.3 H BMP 01/20/17 05:15 Gen: BiPAP in place ABD: soft; NT; midline incision open with few rambo around umbilicus. Skin around umbilicus looking ischemic. Deep fascia intact. LLQ ostomy viable (pink producing liquid output). RLQ & LLQ JPs on bulb suction (murky) : to gravity (concentrated) LE: SCDs b/l. NT. +2 pitting edema b/l Problem List - Problems (1) Perforated bowel Assessment/Plan: POD #11 Dressing changed on rounds - cont daily as ordered Leukocytosis improving but cont to monitor wbc Cont IV ABX per ID CBC, BMP in AM GI / DVT ppx f/u AXR Strict I/O's Code(s): K63.1 - PERFORATION OF INTESTINE (NONTRAUMATIC)
[2017-01-20] MEDS ORDERED: MIDAZOLAM HCL 5 MG/1 ML Single Dose Vial ONE (09:53)
[2017-01-20] MEDS: DEXTROSE 5%-0.45% SALINE 1,000 ML IV SCH (10:00)
--- NOTE | 2017-01-20 10:12 | PROC ---
Intubation - Intubation Reason for Intubation: Respiratory Failure, Airway Protection Time of Intubation: 10:00 Intubation Method: orotracheal Blade used: Glidescope Tube Size (cm): 7.5 Tube position confirmed by: Direct visualization Breath Sounds after Intubation: equal Post Intubation Xray: Yes Remarks: Dr. Erika Higuera
[2017-01-20] MEDS ORDERED: PT OWN MED DRAWER 7, Y5N ONE (10:57)
--- NOTE | 2017-01-20 11:01 | PN ---
Physical Exam: SUBJECTIVE: Patient seen and examined at bed side this morning. Patient was on BiPap but the saturation was decreasing, Labored breathing. Hence Intubated this morning. Had a large BM last night from below. OBJECTIVE: Vital Signs Period Temp Pulse Resp BP Sys/Riley Pulse Ox Last 24 Hr 97.8 F-99.0 F 70-90 20-31 111-150/50-78 90-100 GENERAL: The patient is intubated. HEAD: Normal with no signs of trauma. EYES: PERRL, No pallor or icterus. ENT: Ears normal, moist mucous membranes. NECK: Supple. LUNGS: B/L decreased breath sounds equal, bibasilar crackles, accessory muscle use +. HEART: Regular rate and rhythm, S1, S2 without murmur, rub or gallop. ABDOMEN: Surgical site seen, no serosanguinous fluids, area looked dry, ostomy looks pink with good function. 2 JAMES drain ,Soft, mildly tender, nondistended, normoactive bowel sounds, no guarding, no rebound, no hepatosplenomegaly, no masses. EXTREMITIES: 2+ pulses, warm, well-perfused, no edema. NEUROLOGICAL: No facial droop, difficult to assess her neuro status, gait not observed. PSYCH: Normal mood, normal affect. SKIN: Warm, dry, normal turgor, no rashes or lesions noted Laboratory Results - last 24 hr 01/19/17 01/20/17 01/20/17 05:15 05:15 05:15 WBC 19.6 H 17.3 H RBC 3.14 L 3.15 L Hgb 10.3 L 10.2 L Hct 31.3 L 31.9 L MCV 99.7 H 101.2 H MCH 32.8 32.4 MCHC 32.9 32.0 RDW 14.7 15.2 Plt Count 526 H 518 H MPV 8.8 8.7 Neutrophils % 85.0 H Lymphocytes % 5.0 L D Monocytes % 7.0 Myelocytes 3 H D Differential Comment Manual diff done Reactive Lymphocytes 9 Platelet Estimate Slt increased PTT (Actin FS) Sodium 142 Potassium 4.1 Chloride 110 H Carbon Dioxide 25 Anion Gap 7 L BUN 33 H Creatinine 1.1 H Creat Clearance w eGFR 47.55 Random Glucose 125 H Calcium 8.8 Phosphorus 3.8 Magnesium 2.1 Total Bilirubin 0.5 D AST 23 D ALT 17 Alkaline Phosphatase 67 Total Protein 4.9 L Albumin 1.9 L 01/20/17 05:15 WBC RBC Hgb Hct MCV MCH MCHC RDW Plt Count MPV Neutrophils % Lymphocytes % Monocytes % Myelocytes Differential Comment Reactive Lymphocytes Platelet Estimate PTT (Actin FS) 146.5 H D Sodium Potassium Chloride Carbon Dioxide Anion Gap BUN Creatinine Creat Clearance w eGFR Random Glucose Calcium Phosphorus Magnesium Total Bilirubin AST ALT Alkaline Phosphatase Total Protein Albumin Active Medications Generic Name Dose Route Start Last Admin Trade Name Freq PRN Reason Stop Dose Admin Acetaminophen 1,000 mg 01/11/17 18:03 01/17/17 18:18 Ofirmev Injection - IVPB 1,000 mg Q6H PRN Administration FEVER Albuterol/Ipratropium 1 amp 01/11/17 00:00 01/20/17 06:29 Duoneb - NEB 1 amp QIDR DAVID Administration Chlorhexidine Gluconate 1 applic 01/20/17 22:00 Hibiclens For Decolonization - TP HS DAVID Heparin Sodium (Porcine) 1,000 unit 01/12/17 16:52 01/17/17 23:46 Heparin - IVPUSH 1,000 unit PRN PRN Administration Heparin Heparin Sodium (Porcine) 5,000 unit 01/12/17 16:52 01/17/17 07:41 Heparin - IVPUSH 5,000 unit PRN PRN Administration Heparin Famotidine/Sodium Chloride 50 mls @ 100 mls/hr 01/10/17 10:00 01/19/17 21:52 Pepcid 20 Mg Premixed Ivpb - IVPB 100 mls/hr BID DAVID Administration Fluconazole 100 mls @ 100 mls/hr 01/11/17 13:00 01/19/17 09:34 Diflucan 200 Mg/D5w Premixed Ivpb - IVPB 100 mls/hr DAILY DAVID Administration Heparin Sodium/Dextrose 500 mls @ 20 mls/hr 01/12/17 17:00 01/20/17 08:15 Heparin Infusion - IVPB 28 mls/hr TITR DAVID Administration Protocol 1,000 UNITS/HR Meropenem 1 gm/ Dextrose 100 mls @ 100 mls/hr 01/15/17 17:00 01/20/17 04:14 IVPB 100 mls/hr BID@0500,1700 DAVID Administration Protocol Vancomycin HCl 1,250 mg/ 250 mls @ 250 mls/hr 01/16/17 19:45 01/19/17 09:36 Dextrose IVPB 250 mls/hr DAILY DAVID Administration Protocol Dextrose/Sodium Chloride 1,000 mls @ 42 mls/hr 01/17/17 11:45 01/19/17 19:00 D5-1/2ns - IV 42 mls/hr ASDIR DAVID Administration Metoprolol Tartrate 5 mg 01/11/17 15:20 01/20/17 02:38 Lopressor Injection - IVPB 5 mg Q8H-IV DAVID Administration ASSESSMENT/PLAN: Patient is 81 year old female with a history of diverticulosis presents to the ED with perforated diverticulitis now post op day 5 s/p sigmoid resection with colostomy. # Acute hypoxic respiratory failure Intubated today, call placed to daughter several times, there was no answer, couldn't leave a voice message. # Hypotensive Systolic BP was around 80's, gave 1 L of bolus NS, now MAP is 87, If BP decreases, plan is to add pressors. Central line to be changed today. Might get fluids overloaded if more fluids are given. # Sepsis likely secondary to perforated diverticulitis s/p sigmoid resection with colostomy day 6 with an abdominal abscess s/p IR guided drainage Leukocytosis was not improving, lactic acid was high, CT abdomen/Pelvis showed a collection of fluid 9.7 cm x 3 cm- IR guided drainange done yesterday Leukocytosis is improving, today is 17.3 from 19 Continue IV Meropenam Day 6 Blood culture/Urine culture negative # NSTEMI after surgery On Heparin Drip Troponin trending down # Acute Kidney injury: Improving Creatinine 1.1 today Avoid nephrotoxic drugs # Atrial fibrillation-rate controlled On Heparin Drip Rate control with metoprolol 5mg IV q8h # FEN: D5-1/2 NS @ 42mls/hr Electrolytes to be repeated tomorrow NPO # Prophylaxis For DVT: On Heparin drip For GI: IV Famotidine 20mg BID # Code Status: Full Code # Dispo: Admitted in ICU. Continue ICU care Prognosis is poor. Illness, Investigation and Plan of care explained to the family members yesterday. They verbalized understanding. Case seen and discussed with Dr. Anglin. Visit type - Emergency Visit Emergency Visit: Yes ED Registration Date: 01/09/17 Care time: The patient presented to the Emergency Department on the above date and was hospitalized for further evaluation of their emergent condition. - New Patient This patient is new to me today: No - Critical Care Critical Care patient: Yes Total Critical Care Time (in minutes): 35 Critical Care Statement: The care of this patient involved high complexity decision making to prevent further life threatening deterioration of the patient 's condition and/or to evalute & treat vital organ system(s) failure or risk of failure.
[2017-01-20] MEDS: FAMOTIDINE 20 MG/50 ML IVPB 50 ML IVPB SCH ×2 (11:02→21:11)
[2017-01-20] MEDS: FLUCONAZOLE 200 MG/D5W 100 ML IVPB SCH (11:04)
[2017-01-20] MEDS: VANCOMYCIN 1,250 MG in DEXTROSE 5%-WATER - 250 ML IVPB SCH (11:06)
[2017-01-20] MEDS ORDERED: SODIUM CHLORIDE 1,000 ML IV STA (11:12)
--- NOTE | 2017-01-20 12:25 | PN ---
Progress Note, Physician Chief Complaint: Intubated for respiratory failure History of Present Illness: 81 yrs old admitted with c/o abd pain, nausea and vomiting with sepsis secondary to perforated sigmoid diverticulitis underwent explanatory laprotomy , sigmoid colon resection and colostomy on 01/09/2017 , yesterday underwent IR guide aspiration of abscess today intubated for respiratory failure. - Current Medication List Current Medications: Active Medications Acetaminophen (Ofirmev Injection -) 1,000 mg IVPB Q6H PRN PRN Reason: FEVER Last Admin: 01/17/17 18:18 Dose: 1,000 mg Albuterol/Ipratropium (Duoneb -) 1 amp NEB QIDR DAVID Last Admin: 01/20/17 06:29 Dose: 1 amp Chlorhexidine Gluconate (Hibiclens For Decolonization -) 1 applic TP HS DAVID Heparin Sodium (Porcine) (Heparin -) 1,000 unit IVPUSH PRN PRN PRN Reason: Heparin Last Admin: 01/17/17 23:46 Dose: 1,000 unit Heparin Sodium (Porcine) (Heparin -) 5,000 unit IVPUSH PRN PRN PRN Reason: Heparin Last Admin: 01/17/17 07:41 Dose: 5,000 unit Famotidine/Sodium Chloride (Pepcid 20 Mg Premixed Ivpb -) 50 mls @ 100 mls/hr IVPB BID [facility] Last Admin: 01/20/17 11:02 Dose: 100 mls/hr Fluconazole (Diflucan 200 Mg/D5w Premixed Ivpb -) 100 mls @ 100 mls/hr IVPB DAILY [facility] Last Admin: 01/20/17 11:04 Dose: 100 mls/hr Heparin Sodium/Dextrose (Heparin Infusion -) 500 mls @ 20 mls/hr IVPB TITR DAVID ; 1,000 UNITS/HR PRN Reason: Protocol Last Admin: 01/20/17 08:15 Dose: 28 mls/hr Meropenem 1 gm/ Dextrose 100 mls @ 100 mls/hr IVPB BID@0500,1700 [facility] PRN Reason: Protocol Last Admin: 01/20/17 04:14 Dose: 100 mls/hr Vancomycin HCl 1,250 mg/ (Dextrose) 250 mls @ 250 mls/hr IVPB DAILY [facility] PRN Reason: Protocol Last Admin: 01/20/17 11:06 Dose: 250 mls/hr Dextrose/Sodium Chloride (D5-1/2ns -) 1,000 mls @ 42 mls/hr IV ASDIR DAVID Last Admin: 01/19/17 19:00 Dose: 42 mls/hr Metoprolol Tartrate (Lopressor Injection -) 5 mg IVPB Q8H-IV DAVID Last Admin: 01/20/17 11:03 Dose: Not Given - Objective Vital Signs: Vital Signs Temperature 97.8 F 01/20/17 06:00 Pulse Rate 81 01/20/17 11:03 Respiratory Rate 17 01/20/17 10:00 Blood Pressure 86/40 01/20/17 11:03 O2 Sat by Pulse Oximetry (%) 98 01/20/17 10:00 General: Elderly F s/p intubated , unresponsive, not responding to verbal command. 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 Labs: CBC, BMP 01/20/17 05:15 01/20/17 05:15 INR, PTT INR 1.41 (0.82-1.09) H 01/17/17 05:30 Problem List - Problems (1) Diverticulitis of large intestine with perforation and abscess without bleeding Assessment/Plan: S/P Sepsis, Explanatory laprotomy on 07/12/2016 F/U surgery recommendations, NPO , cont Meropenem and Vancomycine. Code(s): K57.20 - DVTRCLI OF LG INT W PERFORATION AND ABSCESS W/O BLEEDING (2) Left ventricular systolic dysfunction Assessment/Plan: F/U cardiology recommendation. Code(s): I51.9 - HEART DISEASE, UNSPECIFIED (3) Respiratory failure Assessment/Plan: s/p intubation saturation well Code(s): J96.90 - RESPIRATORY FAILURE, UNSP, UNSP W HYPOXIA OR HYPERCAPNIA Qualifiers: Chronicity: acute Respiratory failure complication: hypoxia Qualified Code(s): J96.01 - Acute respiratory failure with hypoxia (4) Abdominal abscess Assessment/Plan: s/p I and D at present in sepsis. Code(s): K65.1 - PERITONEAL ABSCESS
--- NOTE | 2017-01-20 13:06 | PN ---
Teaching Attending Note Name of Resident: Erika Higuera ATTENDING PHYSICIAN STATEMENT I saw and evaluated the patient. I reviewed the resident's note and discussed the case with the resident. I agree with the resident's findings and plan as documented. SUBJECTIVE: Patient seen and examined at bedside. More lethargic today. Breathing is agonal. Subsequently intubated (see procedure note). Intake & Output 01/17/17 01/18/17 01/19/17 01/20/17 23:59 23:59 23:59 23:59 Intake Total 1263 2512 2174 611 Output Total 833 924 6718 430 Balance 483 1837 914 181 Weight 236 lb 3 oz 237 lb 10.533 oz 239 lb 3.225 oz 240 lb 4.862 oz Last Vital Signs Temp Pulse Resp BP Pulse Ox 97.8 F 81 17 86/40 98 01/20/17 06:00 01/20/17 11:03 01/20/17 10:00 01/20/17 11:03 01/20/17 10:00 Active Medications Acetaminophen (Ofirmev Injection -) 1,000 mg IVPB Q6H PRN PRN Reason: FEVER Last Admin: 01/17/17 18:18 Dose: 1,000 mg Albuterol/Ipratropium (Duoneb -) 1 amp NEB QIDR [facility] Last Admin: 01/20/17 06:29 Dose: 1 amp Chlorhexidine Gluconate (Hibiclens For Decolonization -) 1 applic TP HS [facility] Heparin Sodium (Porcine) (Heparin -) 1,000 unit IVPUSH PRN PRN PRN Reason: Heparin Last Admin: 01/17/17 23:46 Dose: 1,000 unit Heparin Sodium (Porcine) (Heparin -) 5,000 unit IVPUSH PRN PRN PRN Reason: Heparin Last Admin: 01/17/17 07:41 Dose: 5,000 unit Famotidine/Sodium Chloride (Pepcid 20 Mg Premixed Ivpb -) 50 mls @ 100 mls/hr IVPB BID [facility] Last Admin: 01/20/17 11:02 Dose: 100 mls/hr Fluconazole (Diflucan 200 Mg/D5w Premixed Ivpb -) 100 mls @ 100 mls/hr IVPB DAILY [facility] Last Admin: 01/20/17 11:04 Dose: 100 mls/hr Heparin Sodium/Dextrose (Heparin Infusion -) 500 mls @ 20 mls/hr IVPB TITR DAVID ; 1,000 UNITS/HR PRN Reason: Protocol Last Admin: 01/20/17 08:15 Dose: 28 mls/hr Meropenem 1 gm/ Dextrose 100 mls @ 100 mls/hr IVPB BID@0500,1700 [facility] PRN Reason: Protocol Last Admin: 01/20/17 04:14 Dose: 100 mls/hr Vancomycin HCl 1,250 mg/ (Dextrose) 250 mls @ 250 mls/hr IVPB DAILY [facility] PRN Reason: Protocol Last Admin: 01/20/17 11:06 Dose: 250 mls/hr Dextrose/Sodium Chloride (D5-1/2ns -) 1,000 mls @ 42 mls/hr IV ASDIR DAVID Last Admin: 01/19/17 19:00 Dose: 42 mls/hr Metoprolol Tartrate (Lopressor Injection -) 5 mg IVPB Q8H-IV DAVID Last Admin: 01/20/17 11:03 Dose: Not Given Constitutional: Yes: Lethargic with agonal breathing Eyes: Yes: (-) Pallor (-) Icterus HENT: Yes: Normocephalic Neck: Yes: Supple, Trachea Midline Cardiovascular: Yes: Tachycardia, Pulse Irregular, S1, S2 Respiratory: Yes: Bilateral scattered Rhonchi and crackles Gastrointestinal: Yes: Soft, (+) BS, brownish discharge from drain, incision C/D /I, appropriately tender, ostomy pink with some output Genitourinary: Yes: Jennings Present Extremities: Yes: WNL Edema: No Integumentary: Yes: Tenting Wound/Incision: Yes: Clean/Dry Neurological: Yes: Alert, non-focal Psychiatric: Yes: Lethargy Labs: Laboratory Results - last 24 hr 01/09/17 01/20/17 01/20/17 13:28 05:15 05:15 WBC 17.3 H RBC 3.15 L Hgb 10.2 L Hct 31.9 L MCV 101.2 H MCH 32.4 MCHC 32.0 RDW 15.2 Plt Count 518 H MPV 8.7 PTT (Actin FS) Sodium 142 Potassium 4.1 Chloride 110 H Carbon Dioxide 25 Anion Gap 7 L BUN 33 H Creatinine 1.1 H Creat Clearance w eGFR 47.55 Random Glucose 125 H Calcium 8.8 Phosphorus 3.8 Magnesium 2.1 Total Bilirubin 0.5 D AST 23 D ALT 17 Alkaline Phosphatase 67 Total Protein 4.9 L Albumin 1.9 L Blood Type O POSITIVE Antibody Screen Positive H Prewarmed Antibody Srcn Negative Antibody Identification COLD AUTOIMMUNE HEMO ANEMIA Direct Antiglob Test Positive H Crossmatch IS Only See Detail 01/20/17 05:15 WBC RBC Hgb Hct MCV MCH MCHC RDW Plt Count MPV PTT (Actin FS) 146.5 H D Sodium Potassium Chloride Carbon Dioxide Anion Gap BUN Creatinine Creat Clearance w eGFR Random Glucose Calcium Phosphorus Magnesium Total Bilirubin AST ALT Alkaline Phosphatase Total Protein Albumin Blood Type Antibody Screen Prewarmed Antibody Srcn Antibody Identification Direct Antiglob Test Crossmatch IS Only Assessment/Plan Intra-abdominal collection Perforated diverticulitis S/P Sigmoid resection with colostomy. 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
[2017-01-20 14:31] LABS: ARTERIAL BLOOD GAS BASE EXCESS -3.3 meq/l (-2-2); ARTERIAL BLOOD GAS HCO3 22.3 meq/L (22-26)
[2017-01-20 14:33] LABS: ALLENS TEST POSITIVE; ART PUNCT SITE LEFT RADIAL; LPM/O2% 100%; MECH. VENT. YES; PT. ON O2? YES; TYPE OF O2 MEC.VENT; VENT RATE 12; VT/PRESS 450
[2017-01-20 14:35] LABS: ARTERIAL BLOOD GAS pH 7.31 (7.35-7.45)
[2017-01-20] MEDS ORDERED: MIDAZOLAM HCL 2 MG/2 ML SINGLE DOSE VIAL ONE (14:36)
[2017-01-20] MEDS ORDERED: MIDAZOLAM HCL 2 MG/2 ML SINGLE DOSE VIAL IVPB SCH (16:00)
[2017-01-20] MEDS: MIDAZOLAM HCL 2 MG/2 ML SINGLE DOSE VIAL IVPB PRN (16:05)
--- NOTE | 2017-01-20 16:51 | PN ---
Progress Note, Physician History of Present Illness: patient became more lethargic drop iin bp had to be intubated currently intubated and sedated - Current Medication List Current Medications: Active Medications Acetaminophen (Ofirmev Injection -) 1,000 mg IVPB Q6H PRN PRN Reason: FEVER Last Admin: 01/17/17 18:18 Dose: 1,000 mg Albuterol/Ipratropium (Duoneb -) 1 amp NEB QIDR DAVID Last Admin: 01/20/17 12:05 Dose: 1 amp Chlorhexidine Gluconate (Hibiclens For Decolonization -) 1 applic TP HS DAVID Heparin Sodium (Porcine) (Heparin -) 1,000 unit IVPUSH PRN PRN PRN Reason: Heparin Last Admin: 01/17/17 23:46 Dose: 1,000 unit Heparin Sodium (Porcine) (Heparin -) 5,000 unit IVPUSH PRN PRN PRN Reason: Heparin Last Admin: 01/17/17 07:41 Dose: 5,000 unit Famotidine/Sodium Chloride (Pepcid 20 Mg Premixed Ivpb -) 50 mls @ 100 mls/hr IVPB BID [facility] Last Admin: 01/20/17 11:02 Dose: 100 mls/hr Fluconazole (Diflucan 200 Mg/D5w Premixed Ivpb -) 100 mls @ 100 mls/hr IVPB DAILY [facility] Last Admin: 01/20/17 11:04 Dose: 100 mls/hr Heparin Sodium/Dextrose (Heparin Infusion -) 500 mls @ 20 mls/hr IVPB TITR DAVID ; 1,000 UNITS/HR PRN Reason: Protocol Last Admin: 01/20/17 08:15 Dose: 28 mls/hr Meropenem 1 gm/ Dextrose 100 mls @ 100 mls/hr IVPB BID@0500,1700 [facility]ID PRN Reason: Protocol Last Admin: 01/20/17 04:14 Dose: 100 mls/hr Vancomycin HCl 1,250 mg/ (Dextrose) 250 mls @ 250 mls/hr IVPB DAILY [facility] PRN Reason: Protocol Last Admin: 01/20/17 11:06 Dose: 250 mls/hr Dextrose/Sodium Chloride (D5-1/2ns -) 1,000 mls @ 42 mls/hr IV ASDIR [facility] Last Admin: 01/19/17 19:00 Dose: 42 mls/hr Metoprolol Tartrate (Lopressor Injection -) 5 mg IVPB Q8H-IV DAVID Last Admin: 01/20/17 11:03 Dose: Not Given Midazolam HCl (Versed -) 2 mg IVPB Q1H PRN PRN Reason: AGITATION - Objective Vital Signs: Vital Signs Temperature 97.8 F 01/20/17 06:00 Pulse Rate 81 01/20/17 11:03 Respiratory Rate 21 01/20/17 15:04 Blood Pressure 86/40 01/20/17 11:03 O2 Sat by Pulse Oximetry (%) 98 01/20/17 10:00 Constitutional: Yes: Other Cardiovascular: Yes: Regular Rate and Rhythm, Other Respiratory: Yes: Intubated, Mechanically Ventilated Gastrointestinal: Yes: Soft, Other (absent bowel sounds) Musculoskeletal: Yes: WNL Edema: LLE: Trace, RLE: Trace Wound/Incision: Yes: Open to air, Dressing Dry and Intact, Other Neurological: Yes: Other Psychiatric: Yes: Other Labs: CBC, BMP 01/20/17 05:15 01/20/17 05:15 INR, PTT INR 1.41 (0.82-1.09) H 01/17/17 05:30 - ....Imaging Chest X-ray: Report Reviewed, Image Reviewed Assessment/Plan 81 y/o old with multiple medical problems with perforated bowel post op Perforated bowel Peritonitis Sepsis s/p ex-lap with sigmoid resection, colostomy Resolving JG Lactic acidosis AF h/o DVT/PE patient had abscess drainaed about 200 cc plan await for cx reports continue abx nutrition rest as per icu wbc has trended down cc time 40 min
--- NOTE | 2017-01-20 18:09 | PROC ---
Central Line Insertion Indication: CVP Monitoring, Sepsis Risks and Benefits Explained: Yes Consent on Chart: Yes Central Line: Triple Lumen Catheter Anesthesia: 1% Lidocaine Sterile Technique: Yes Ultrasound Guided Assistance: Yes Position: Left Internal Jugular Post Insertion: Yes: Bilateral Chest Expansion, Chest X-Ray Ordered Sterile Dressing Applied: Yes
--- NOTE | 2017-01-20 20:49 | PN ---
Progress Note (short form) - Note Progress Note: 81 year female with H/O hypertension,severe LV dysfuntion, ruptured diverticulitis S/P colostomy, sinus tachycardiapre and post op, treated with IV metropolol.Intraperitoneal tube placement for fluid collection. Patient developed agonal breathing requiring intubation and respirator support. Active Medications Acetaminophen (Ofirmev Injection -) 1,000 mg IVPB Q6H PRN PRN Reason: FEVER Last Admin: 01/17/17 18:18 Dose: 1,000 mg Albuterol/Ipratropium (Duoneb -) 1 amp NEB QIDR DAVID Last Admin: 01/20/17 18:18 Dose: 1 amp Chlorhexidine Gluconate (Hibiclens For Decolonization -) 1 applic TP HS DAVID Heparin Sodium (Porcine) (Heparin -) 1,000 unit IVPUSH PRN PRN PRN Reason: Heparin Last Admin: 01/17/17 23:46 Dose: 1,000 unit Heparin Sodium (Porcine) (Heparin -) 5,000 unit IVPUSH PRN PRN PRN Reason: Heparin Last Admin: 01/17/17 07:41 Dose: 5,000 unit Famotidine/Sodium Chloride (Pepcid 20 Mg Premixed Ivpb -) 50 mls @ 100 mls/hr IVPB BID [facility] Last Admin: 01/20/17 11:02 Dose: 100 mls/hr Fluconazole (Diflucan 200 Mg/D5w Premixed Ivpb -) 100 mls @ 100 mls/hr IVPB DAILY [facility] Last Admin: 01/20/17 11:04 Dose: 100 mls/hr Heparin Sodium/Dextrose (Heparin Infusion -) 500 mls @ 20 mls/hr IVPB TITR DAVID ; 1,000 UNITS/HR PRN Reason: Protocol Last Admin: 01/20/17 18:45 Dose: 28 mls/hr Meropenem 1 gm/ Dextrose 100 mls @ 100 mls/hr IVPB BID@0500,1700 [facility]ID PRN Reason: Protocol Last Admin: 01/20/17 17:30 Dose: 100 mls/hr Vancomycin HCl 1,250 mg/ (Dextrose) 250 mls @ 250 mls/hr IVPB DAILY [facility] PRN Reason: Protocol Last Admin: 01/20/17 11:06 Dose: 250 mls/hr Dextrose/Sodium Chloride (D5-1/2ns -) 1,000 mls @ 42 mls/hr IV ASDIR DAVID Last Admin: 01/20/17 10:00 Dose: 42 mls/hr Metoprolol Tartrate (Lopressor Injection -) 5 mg IVPB Q8H-IV DAVID Last Admin: 01/20/17 18:52 Dose: 5 mg Midazolam HCl (Versed -) 2 mg IVPB Q1H PRN PRN Reason: AGITATION Last Admin: 01/20/17 16:05 Dose: 2 mg 81 year female is sedated. Vital Signs - 8 hr 01/20/17 01/20/17 01/20/17 13:00 14:00 15:04 Temperature 98.1 F Pulse Rate 77 77 Respiratory 14 17 21 Rate Blood Pressure 102/54 98/79 O2 Sat by Pulse Oximetry (%) 01/20/17 01/20/17 01/20/17 16:00 17:00 17:18 Temperature Pulse Rate 75 78 Respiratory 21 18 21 Rate Blood Pressure 106/55 130/77 O2 Sat by Pulse 100 Oximetry (%) 01/20/17 01/20/17 01/20/17 18:52 18:59 19:00 Temperature 98.1 F Pulse Rate 73 72 72 Respiratory 16 Rate Blood Pressure 119/52 119/52 O2 Sat by Pulse 100 Oximetry (%) NECK: Supple, NO JVD,+HJR, carotids 1+ HEART: Heart sounds are diastant, no murmuror gallops were appreciated. LUNGS: Decreased breath sounds at both bases. ABDOMEN. Diffuse tenderness on palpation. EXT; No calf tenderness, 2+bilateral ankle edema 1. Sepsis. 2. Severe LV dysfunction. 3. Ruptured diverticulits. 4. Colostomy. 5. H/o Hypertension. 6. Abdominal fluid collection. 7. CLBBB. 8. Ventricular premature beats. 9. Respiratory failure. 10.Abdominal fluid collection. Recommendation: 1. Management as per utility pipe layer 2. Continue IV betablockers. Prognosis: critical.
[2017-01-20] MEDS: CHLORHEXIDINE GLUCONATE 4% CLEANSER FOR DECOLONIZATION TP SCH (21:11)
[2017-01-21] MEDS: METOPROLOL TARTRATE 5 MG/5 ML VIAL IVPB SCH ×3 (02:00→17:40)
[2017-01-21] MEDS: MEROPENEM 1 GM in DEXTROSE 5%-WATER - 100 ML IVPB SCH ×2 (05:00→17:39)
[2017-01-21] MEDS: ALBUTEROL SO4 2.5/IPRATROPIUM 0.5 INH SOL 3 ML VIAL.NEB. NEB SCH ×3 (06:31→17:27)
[2017-01-21] MEDS: HEPARIN INFUSION - 500 ML IVPB SCH ×2 (06:54→17:00)
--- NOTE | 2017-01-21 08:23 | PN ---
Progress Note (short form) - Note Progress Note: Attending Surgeon POD #12 Remains in ICU; she was reintubated yesterday after AM rounds She is awake and responds to verbal commands. VSS AF abdomen-ostomy w/liquid output and gas; abdomen soft; not distended; JAMES w/ minimal output; IR drain functioning well; area around the umbilicus w/ some tissue loss; rambo in place; wound healing poor. AM blood work pending IMP: s/p Hartmans procedure PLAN: Continue as per ICU and Consultants; continue wound care; prognosis remains poor. Taqueria Prado MD FACS
--- NOTE | 2017-01-21 08:42 | PN ---
Progress Note, Physician Chief Complaint: Awake History of Present Illness: On respirator - Current Medication List Current Medications: Active Medications Acetaminophen (Ofirmev Injection -) 1,000 mg IVPB Q6H PRN PRN Reason: FEVER Last Admin: 01/17/17 18:18 Dose: 1,000 mg Albuterol/Ipratropium (Duoneb -) 1 amp NEB QIDR [facility] Last Admin: 01/21/17 06:31 Dose: 1 amp Chlorhexidine Gluconate (Hibiclens For Decolonization -) 1 applic TP HS [facility] Last Admin: 01/20/17 21:11 Dose: 1 applic Heparin Sodium (Porcine) (Heparin -) 1,000 unit IVPUSH PRN PRN PRN Reason: Heparin Last Admin: 01/17/17 23:46 Dose: 1,000 unit Heparin Sodium (Porcine) (Heparin -) 5,000 unit IVPUSH PRN PRN PRN Reason: Heparin Last Admin: 01/17/17 07:41 Dose: 5,000 unit Famotidine/Sodium Chloride (Pepcid 20 Mg Premixed Ivpb -) 50 mls @ 100 mls/hr IVPB BID [facility] Last Admin: 01/20/17 21:11 Dose: 100 mls/hr Fluconazole (Diflucan 200 Mg/D5w Premixed Ivpb -) 100 mls @ 100 mls/hr IVPB DAILY [facility] Last Admin: 01/20/17 11:04 Dose: 100 mls/hr Heparin Sodium/Dextrose (Heparin Infusion -) 500 mls @ 20 mls/hr IVPB TITR DAVID ; 1,000 UNITS/HR PRN Reason: Protocol Last Admin: 01/21/17 06:54 Dose: 27 mls/hr Meropenem 1 gm/ Dextrose 100 mls @ 100 mls/hr IVPB BID@0500,1700 DAVID PRN Reason: Protocol Last Admin: 01/21/17 05:00 Dose: 100 mls/hr Vancomycin HCl 1,250 mg/ (Dextrose) 250 mls @ 250 mls/hr IVPB DAILY [facility] PRN Reason: Protocol Last Admin: 01/20/17 11:06 Dose: 250 mls/hr Dextrose/Sodium Chloride (D5-1/2ns -) 1,000 mls @ 42 mls/hr IV ASDIR [facility] Last Admin: 01/20/17 10:00 Dose: 42 mls/hr Metoprolol Tartrate (Lopressor Injection -) 5 mg IVPB Q8H-IV DAVID Last Admin: 01/21/17 02:00 Dose: 5 mg Midazolam HCl (Versed -) 2 mg IVPB Q1H PRN PRN Reason: AGITATION Last Admin: 01/20/17 16:05 Dose: 2 mg - Objective Vital Signs: Vital Signs Temperature 97.6 F 01/21/17 08:00 Pulse Rate 77 01/21/17 08:00 Respiratory Rate 20 01/21/17 08:00 Blood Pressure 102/64 01/21/17 08:00 O2 Sat by Pulse Oximetry (%) 94 L 01/20/17 21:45 Constitutional: Yes: No Distress Eyes: Yes: WNL HENT: Yes: WNL Neck: Yes: WNL Cardiovascular: Yes: Pulse Irregular Respiratory: Yes: Mechanically Ventilated Gastrointestinal: Yes: Normal Bowel Sounds ...Rectal Exam: Yes: Deferred Genitourinary: Yes: Jennings Present Edema: No Neurological: Yes: Alert Labs: CBC, BMP 01/20/17 05:15 01/20/17 05:15 INR, PTT INR 1.41 (0.82-1.09) H 01/17/17 05:30 - ....Imaging X-ray: Image Reviewed Assessment/Plan Case discussed with resident Fox roche
[2017-01-21 09:04] LABS: MCH 32.1 pg (25.7-33.7); MCHC 32.1 g/dl (32.0-36.0); MEAN PLT VOLUME 8.7 fl (7.5-11.1); PLATELET COUNT 448 K/MM3 (134-434); RDW 14.7 % (11.6-15.6)
[2017-01-21] MEDS: FAMOTIDINE 20 MG/50 ML IVPB 50 ML IVPB SCH ×2 (09:18→21:38)
[2017-01-21] MEDS: FLUCONAZOLE 200 MG/D5W 100 ML IVPB SCH (09:18)
[2017-01-21] MEDS: DEXTROSE 5%-0.45% SALINE 1,000 ML IV SCH ×2 (09:19→12:45)
[2017-01-21 09:23] LABS: WHITE BLOOD COUNT 20.3 K/mm3 (4.0-10.0)
[2017-01-21] MEDS: VANCOMYCIN 1,250 MG in DEXTROSE 5%-WATER - 250 ML IVPB SCH (09:24)
[2017-01-21 09:42] LABS: ALBUMIN 1.7 g/dl (3.4-5.0); ANION GAP 8 (8-16); BILIRUBIN,TOTAL 0.5 mg/dL (0.2-1.0); CALCIUM 8.3 mg/dL (8.5-10.1); CO2 23 mmol/L (21-32); CREATININE 1.6 mg/dL (0.55-1.02); GLUCOSE,RANDOM 94 mg/dL (74-106); PHOSPHOROUS 3.1 mg/dL (2.5-4.9); SGOT/AST 28 U/L (15-37); SGPT/ALT 15 U/L (12-78); TOT PROT 4.5 g/dl (6.4-8.2)
[2017-01-21 09:43] LABS: ALK PHOS 61 U/L (45-117)
[2017-01-21 12:44] LABS: METAMYELOCYTE 1 % (0-2); PLATELET ESTIMATE ADEQUATE (NORMAL)
--- NOTE | 2017-01-21 12:56 | PN ---
Teaching Attending Note Name of Resident: Saman Garcia ATTENDING PHYSICIAN STATEMENT I saw and evaluated the patient. I reviewed the resident's note and discussed the case with the resident. I agree with the resident's findings and plan as documented. SUBJECTIVE: Patient seen and examined at bedside. Intubated. Awake and interactive. Able to follow some simple commands. AC Mode of vent, 70% FiO2. No pressors. (+) Dark liquid stools noted in ostomy Intake & Output 01/18/17 01/19/17 01/20/17 01/21/17 23:59 23:59 23:59 23:59 Intake Total 2512 2174 3081 928 Output Total 675 1260 905 280 Balance 2922 231 7161 648 Weight 237 lb 10.533 oz 239 lb 3.225 oz 240 lb 4.862 oz 253 lb 1.451 oz Last Vital Signs Temp Pulse Resp BP Pulse Ox 99.0 F 80 22 134/47 96 01/21/17 12:00 01/21/17 12:00 01/21/17 12:00 01/21/17 12:00 01/21/17 10:30 Active Medications Acetaminophen (Ofirmev Injection -) 1,000 mg IVPB Q6H PRN PRN Reason: FEVER Last Admin: 01/17/17 18:18 Dose: 1,000 mg Albuterol/Ipratropium (Duoneb -) 1 amp NEB QIDR [facility] Last Admin: 01/21/17 06:31 Dose: 1 amp Chlorhexidine Gluconate (Hibiclens For Decolonization -) 1 applic TP HS [facility] Last Admin: 01/20/17 21:11 Dose: 1 applic Heparin Sodium (Porcine) (Heparin -) 1,000 unit IVPUSH PRN PRN PRN Reason: Heparin Last Admin: 01/17/17 23:46 Dose: 1,000 unit Heparin Sodium (Porcine) (Heparin -) 5,000 unit IVPUSH PRN PRN PRN Reason: Heparin Last Admin: 01/17/17 07:41 Dose: 5,000 unit Famotidine/Sodium Chloride (Pepcid 20 Mg Premixed Ivpb -) 50 mls @ 100 mls/hr IVPB BID [facility] Last Admin: 01/21/17 09:18 Dose: 100 mls/hr Fluconazole (Diflucan 200 Mg/D5w Premixed Ivpb -) 100 mls @ 100 mls/hr IVPB DAILY [facility]ID Last Admin: 01/21/17 09:18 Dose: 100 mls/hr Heparin Sodium/Dextrose (Heparin Infusion -) 500 mls @ 20 mls/hr IVPB TITR DAVID ; 1,000 UNITS/HR PRN Reason: Protocol Last Titration: 01/21/17 11:43 Dose: 0 units/hr Meropenem 1 gm/ Dextrose 100 mls @ 100 mls/hr IVPB BID@0500,1700 DAVID PRN Reason: Protocol Last Admin: 01/21/17 05:00 Dose: 100 mls/hr Vancomycin HCl 1,250 mg/ (Dextrose) 250 mls @ 250 mls/hr IVPB DAILY DAVID PRN Reason: Protocol Last Admin: 01/21/17 09:24 Dose: 250 mls/hr Dextrose/Sodium Chloride (D5-1/2ns -) 1,000 mls @ 42 mls/hr IV ASDIR DAVID Last Admin: 01/21/17 09:19 Dose: 42 mls/hr Metoprolol Tartrate (Lopressor Injection -) 5 mg IVPB Q8H-IV [facility]ID Last Admin: 01/21/17 10:06 Dose: 5 mg Midazolam HCl (Versed -) 2 mg IVPB Q1H PRN PRN Reason: AGITATION Last Admin: 01/20/17 16:05 Dose: 2 mg Constitutional: Yes: Intubated and responsive Eyes: Yes: (-) Pallor (-) Icterus HENT: Yes: Normocephalic Neck: Yes: Supple, Trachea Midline Cardiovascular: Yes: Tachycardia, Pulse Irregular, S1, S2 Respiratory: Yes: Bilateral scattered Rhonchi and crackles Gastrointestinal: Yes: Soft, (+) BS, brownish discharge from drain, incision C/D /I, appropriately tender, ostomy pink with some output Genitourinary: Yes: Jennings Present Extremities: Yes: WNL Edema: No Integumentary: Yes: Tenting Wound/Incision: Yes: Clean/Dry Neurological: Yes: Alert, non-focal Psychiatric: Yes: Cooperative Labs: Laboratory Results - last 24 hr 01/20/17 01/20/17 01/21/17 14:30 23:14 08:20 WBC 20.3 H Corrected WBC (auto) 15.86 RBC 2.77 L Hgb 8.9 L D Hct 27.7 L MCV 100.0 H MCH 32.1 MCHC 32.1 RDW 14.7 Plt Count 448 H MPV 8.7 Neutrophils % 83.0 H Lymphocytes % 6.0 L Monocytes % 6.0 Metamyelocytes 1 Myelocytes 4 H D Nucleated RBCs 28 H* D Differential Comment Manual diff done Platelet Estimate Adequate PTT (Actin FS) 74.8 H D Puncture Site Left radial ABG pH 7.31 L ABG pCO2 at Pt Temp 45.4 H ABG pO2 at Pt Temp 129.0 H D ABG HCO3 22.3 ABG O2 Sat (Measured) 99.0 H ABG O2 Content 12.9 L ABG Base Excess -3.3 L Jose A Test Positive O2 Delivery Device Mec.vent Oxygen Flow Rate 100% Vent Mode A/c Vent Rate 12 Mechanical Rate Yes PEEP 0.0 Pressure Support Vent 450 Sodium Potassium Chloride Carbon Dioxide Anion Gap BUN Creatinine Creat Clearance w eGFR Random Glucose Calcium Phosphorus Magnesium Total Bilirubin AST ALT Alkaline Phosphatase Total Protein Albumin 01/21/17 01/21/17 01/21/17 08:20 08:20 10:29 WBC Corrected WBC (auto) RBC Hgb Hct MCV MCH MCHC RDW Plt Count MPV Neutrophils % Lymphocytes % Monocytes % Metamyelocytes Myelocytes Nucleated RBCs Differential Comment Platelet Estimate PTT (Actin FS) 102.5 H D 130.8 H Puncture Site ABG pH ABG pCO2 at Pt Temp ABG pO2 at Pt Temp ABG HCO3 ABG O2 Sat (Measured) ABG O2 Content ABG Base Excess Jose A Test O2 Delivery Device Oxygen Flow Rate Vent Mode Vent Rate Mechanical Rate PEEP Pressure Support Vent Sodium 142 Potassium 3.6 Chloride 111 H Carbon Dioxide 23 Anion Gap 8 BUN 34 H Creatinine 1.6 H D Creat Clearance w eGFR 30.86 Random Glucose 94 D Calcium 8.3 L Phosphorus 3.1 Magnesium 2.0 Total Bilirubin 0.5 AST 28 D ALT 15 Alkaline Phosphatase 61 Total Protein 4.5 L Albumin 1.7 L Assessment/Plan Intra-abdominal collection Perforated diverticulitis S/P Sigmoid resection with colostomy. 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 component of BALJIT -> Time period too long) Wean FiO2 as tolerated Monitor drainage Cautious IVF PO as tolerated Strict I&O Pain control Will start feeds IV Heparin Once Renal function has stablized, will likely need to diurese before extubation Dr Anglin Critical Care Time Total Critical Care Time: 35 Critical Care Statement: The care of this patient involved high complexity decision making to prevent further life threatening deterioration of the patient 's condition and/or to evaluate & treat vital organ system(s) failure or risk of failure.
[2017-01-21] MEDS: MIDAZOLAM HCL 2 MG/2 ML SINGLE DOSE VIAL IVPB PRN ×2 (15:13→17:15)
--- NOTE | 2017-01-21 15:21 | PN ---
Physical Exam: SUBJECTIVE:Patient seen and examined at bed side this morning. Intubated. Off sedation, awake and responding. OBJECTIVE: Vital Signs Period Temp Pulse Resp BP Sys/Riley Pulse Ox Last 24 Hr 97.6 F-99.1 F 71-84 15-27 102-143/47-77 80-100 GENERAL: The patient is intubated. HEAD: Normal with no signs of trauma. EYES: PERRL, No pallor or icterus. ENT: Ears normal, moist mucous membranes. NECK: Supple. LUNGS: B/L decreased breath sounds equal, bibasilar crackles, accessory muscle use +. HEART: Regular rate and rhythm, S1, S2 without murmur, rub or gallop. ABDOMEN: Surgical site seen, no serosanguinous fluids, area looked dry, ostomy looks pink with good function. 2 JAMES drain ,Soft, mildly tender, nondistended, normoactive bowel sounds, no guarding, no rebound, no hepatosplenomegaly, no masses. EXTREMITIES: 2+ pulses, warm, well-perfused, B/L peripheral pitting edema. NEUROLOGICAL: No facial droop, gait not observed. PSYCH: Normal mood, normal affect. SKIN: Warm, dry, normal turgor, no rashes or lesions note Laboratory Results - last 24 hr 01/20/17 01/21/17 01/21/17 23:14 08:20 08:20 WBC 20.3 H Corrected WBC (auto) 15.86 RBC 2.77 L Hgb 8.9 L D Hct 27.7 L MCV 100.0 H MCH 32.1 MCHC 32.1 RDW 14.7 Plt Count 448 H MPV 8.7 Neutrophils % 83.0 H Lymphocytes % 6.0 L Monocytes % 6.0 Metamyelocytes 1 Myelocytes 4 H D Nucleated RBCs 28 H* D Differential Comment Manual diff done Platelet Estimate Adequate PTT (Actin FS) 74.8 H D Sodium 142 Potassium 3.6 Chloride 111 H Carbon Dioxide 23 Anion Gap 8 BUN 34 H Creatinine 1.6 H D Creat Clearance w eGFR 30.86 Random Glucose 94 D Calcium 8.3 L Phosphorus 3.1 Magnesium 2.0 Total Bilirubin 0.5 AST 28 D ALT 15 Alkaline Phosphatase 61 Total Protein 4.5 L Albumin 1.7 L 01/21/17 01/21/17 08:20 10:29 WBC Corrected WBC (auto) RBC Hgb Hct MCV MCH MCHC RDW Plt Count MPV Neutrophils % Lymphocytes % Monocytes % Metamyelocytes Myelocytes Nucleated RBCs Differential Comment Platelet Estimate PTT (Actin FS) 102.5 H D 130.8 H Sodium Potassium Chloride Carbon Dioxide Anion Gap BUN Creatinine Creat Clearance w eGFR Random Glucose Calcium Phosphorus Magnesium Total Bilirubin AST ALT Alkaline Phosphatase Total Protein Albumin Active Medications Generic Name Dose Route Start Last Admin Trade Name Freq PRN Reason Stop Dose Admin Acetaminophen 1,000 mg 01/11/17 18:03 01/17/17 18:18 Ofirmev Injection - IVPB 1,000 mg Q6H PRN Administration FEVER Albuterol/Ipratropium 1 amp 01/11/17 00:00 01/21/17 12:00 Duoneb - NEB 1 amp QIDR DAVID Administration Chlorhexidine Gluconate 1 applic 01/20/17 22:00 01/20/17 21:11 Hibiclens For Decolonization - TP 1 applic HS DAVID Administration Heparin Sodium (Porcine) 1,000 unit 01/12/17 16:52 01/17/17 23:46 Heparin - IVPUSH 1,000 unit PRN PRN Administration Heparin Heparin Sodium (Porcine) 5,000 unit 01/12/17 16:52 01/17/17 07:41 Heparin - IVPUSH 5,000 unit PRN PRN Administration Heparin Famotidine/Sodium Chloride 50 mls @ 100 mls/hr 01/10/17 10:00 01/21/17 09:18 Pepcid 20 Mg Premixed Ivpb - IVPB 100 mls/hr BID DAVID Administration Fluconazole 100 mls @ 100 mls/hr 01/11/17 13:00 01/21/17 09:18 Diflucan 200 Mg/D5w Premixed Ivpb - IVPB 100 mls/hr DAILY DAVID Administration Heparin Sodium/Dextrose 500 mls @ 20 mls/hr 01/12/17 17:00 01/21/17 12:45 Heparin Infusion - IVPB 1,200 units/hr TITR DAVID Titration Protocol 1,000 UNITS/HR Meropenem 1 gm/ Dextrose 100 mls @ 100 mls/hr 01/15/17 17:00 01/21/17 05:00 IVPB 100 mls/hr BID@0500,1700 DAVID Administration Protocol Vancomycin HCl 1,250 mg/ 250 mls @ 250 mls/hr 01/16/17 19:45 01/21/17 09:24 Dextrose IVPB 250 mls/hr DAILY DAVID Administration Protocol Dextrose/Sodium Chloride 1,000 mls @ 42 mls/hr 01/17/17 11:45 01/21/17 12:45 D5-1/2ns - IV Not Given ASDIR DAVID Metoprolol Tartrate 5 mg 01/11/17 15:20 01/21/17 10:06 Lopressor Injection - IVPB 5 mg Q8H-IV DAVID Administration Midazolam HCl 2 mg 01/20/17 16:06 01/21/17 15:13 Versed - IVPB 2 mg Q1H PRN Administration AGITATION ASSESSMENT/PLAN: Patient is 81 year old female with a history of diverticulosis presents to the ED with perforated diverticulitis now post op day 5 s/p sigmoid resection with colostomy. # Acute hypoxic respiratory failure Intubated yesterday to protect the airways. Much more alert and responsive today # Hypotensive now improved, MAP is 80 Central line to be changed 12/20/16 Might get fluids overloaded if more fluids are given. # Sepsis likely secondary to perforated diverticulitis s/p sigmoid resection with colostomy day 7 with an abdominal abscess s/p IR guided drainage Worsening Leukocytosis 20.3 today. IR guided drainange done day 2, abscess grew Lactose fermenting gm negative bacilli, Strep sp Continue IV Meropenam Day 7 Blood culture/Urine culture negative # NSTEMI after surgery On Heparin Drip Troponin trending down # Acute Kidney injury likely ATN Creatinine 1.1---> 1.6 today Continue hydration Avoid nephrotoxic drugs # Atrial fibrillation-rate controlled On Heparin Drip Rate control with metoprolol 5mg IV q8h # FEN: D5-1/2 NS @ 42mls/hr Electrolytes to be repeated tomorrow NPO now, plan is to start enteral feeds 1.5 Jevity @ 10-15 cc/hr, to be confirmed with Dr. Prado. # Prophylaxis For DVT: On Heparin drip For GI: IV Famotidine 20mg BID # Code Status: Full Code # Dispo: Admitted in ICU. Continue ICU care Prognosis is poor. Illness, Investigation and Plan of care explained to the family members yesterday. They verbalized understanding. Case seen and discussed with Dr. Anglin. Visit type - Emergency Visit Emergency Visit: Yes ED Registration Date: 01/09/17 Care time: The patient presented to the Emergency Department on the above date and was hospitalized for further evaluation of their emergent condition. - New Patient This patient is new to me today: No - Critical Care Critical Care patient: Yes Total Critical Care Time (in minutes): 35 Critical Care Statement: The care of this patient involved high complexity decision making to prevent further life threatening deterioration of the patient 's condition and/or to evalute & treat vital organ system(s) failure or risk of failure.
--- NOTE | 2017-01-21 17:26 | PN ---
Progress Note, Physician History of Present Illness: continues to be sedated and intubated wbc has increased still draining gladys pus family in room discussed in detail with them mentally patient is responding lashay - Current Medication List Current Medications: Active Medications Acetaminophen (Ofirmev Injection -) 1,000 mg IVPB Q6H PRN PRN Reason: FEVER Last Admin: 01/17/17 18:18 Dose: 1,000 mg Albuterol/Ipratropium (Duoneb -) 1 amp NEB QIDR [facility] Last Admin: 01/21/17 12:00 Dose: 1 amp Chlorhexidine Gluconate (Hibiclens For Decolonization -) 1 applic TP HS [facility] Last Admin: 01/20/17 21:11 Dose: 1 applic Heparin Sodium (Porcine) (Heparin -) 1,000 unit IVPUSH PRN PRN PRN Reason: Heparin Last Admin: 01/17/17 23:46 Dose: 1,000 unit Heparin Sodium (Porcine) (Heparin -) 5,000 unit IVPUSH PRN PRN PRN Reason: Heparin Last Admin: 01/17/17 07:41 Dose: 5,000 unit Famotidine/Sodium Chloride (Pepcid 20 Mg Premixed Ivpb -) 50 mls @ 100 mls/hr IVPB BID [facility] Last Admin: 01/21/17 09:18 Dose: 100 mls/hr Fluconazole (Diflucan 200 Mg/D5w Premixed Ivpb -) 100 mls @ 100 mls/hr IVPB DAILY [facility] Last Admin: 01/21/17 09:18 Dose: 100 mls/hr Heparin Sodium/Dextrose (Heparin Infusion -) 500 mls @ 20 mls/hr IVPB TITR DAVID ; 1,000 UNITS/HR PRN Reason: Protocol Last Titration: 01/21/17 12:45 Dose: 1,200 units/hr Meropenem 1 gm/ Dextrose 100 mls @ 100 mls/hr IVPB BID@0500,1700 DAVID PRN Reason: Protocol Last Admin: 01/21/17 05:00 Dose: 100 mls/hr Vancomycin HCl 1,250 mg/ (Dextrose) 250 mls @ 250 mls/hr IVPB DAILY [facility] PRN Reason: Protocol Last Admin: 01/21/17 09:24 Dose: 250 mls/hr Dextrose/Sodium Chloride (D5-1/2ns -) 1,000 mls @ 42 mls/hr IV ASDIR DAVID Last Admin: 01/21/17 12:45 Dose: Not Given Metoprolol Tartrate (Lopressor Injection -) 5 mg IVPB Q8H-IV DAVID Last Admin: 01/21/17 10:06 Dose: 5 mg Midazolam HCl (Versed -) 2 mg IVPB Q1H PRN PRN Reason: AGITATION Last Admin: 01/21/17 17:15 Dose: 2 mg - Objective Vital Signs: Vital Signs Temperature 98.9 F 01/21/17 16:00 Pulse Rate 82 01/21/17 16:00 Respiratory Rate 25 H 01/21/17 16:00 Blood Pressure 120/56 01/21/17 16:00 O2 Sat by Pulse Oximetry (%) 96 01/21/17 10:30 Constitutional: Yes: Other Cardiovascular: Yes: Pulse Irregular Respiratory: Yes: Intubated, Mechanically Ventilated Gastrointestinal: Yes: Other (absent bowel sounds anamaria drain with pus draiining wounds dressing present) Musculoskeletal: Yes: Other Extremities: Yes: Other Edema: LLE: 1+, RLE: 1+ Integumentary: Yes: WNL Wound/Incision: Yes: Dressing Dry and Intact Neurological: Yes: Other Psychiatric: Yes: Other Labs: CBC, BMP 01/21/17 08:20 01/21/17 08:20 INR, PTT INR 1.41 (0.82-1.09) H 01/17/17 05:30 Assessment/Plan 81 y/o old with multiple medical problems with perforated bowel post op Perforated bowel Peritonitis Sepsis s/p ex-lap with sigmoid resection, colostomy Resolving JG Lactic acidosis AF h/o DVT/PE patient had abscess drainaed about 200 cc plan continue abx cx report noted patients wbc has increased gladys pus cr has increased await for sensitivities i might add double gm negative coverage cc tim40 min
[2017-01-21] MEDS: MIDAZOLAM 100 MG in SODIUM CHLORIDE 100 ML IVPB SCH (18:15)
[2017-01-21 21:36] LABS: MCH 32.5 pg (25.7-33.7); MCHC 32.7 g/dl (32.0-36.0); MEAN CELL VOLUME 99.2 fl (80-96); MEAN PLT VOLUME 8.5 fl (7.5-11.1); PLATELET COUNT 439 K/MM3 (134-434); RDW 14.3 % (11.6-15.6)
[2017-01-21] MEDS: CHLORHEXIDINE GLUCONATE 4% CLEANSER FOR DECOLONIZATION TP SCH (21:38)
[2017-01-21 22:19] LABS: WHITE BLOOD COUNT 18.9 K/mm3 (4.0-10.0)
[2017-01-21 22:20] LABS: PLATELET ESTIMATE SLT INCREASED (NORMAL)
--- NOTE | 2017-01-21 23:14 | OP ---
DATE OF OPERATION: 01/09/2017 PREOPERATIVE DIAGNOSIS: Acute abdomen. POSTOPERATIVE DIAGNOSIS: Acute abdomen secondary to perforated diverticulitis. PROCEDURE: Laparotomy, Nathanael procedure, and takedown of splenic flexure. SURGEON: Taqueria Prado M.D. [employer]SA[employer] ATTORNEY: Brook Alfaro ANESTHESIA: General. OPERATIVE FINDINGS: There were extensive adhesions from previous surgery. A centralized abscess cavity and mesentery perforated sigmoid diverticulitis with evidence of proximal, sigmoid, and distal sigmoid diverticulosis. The rest of the findings were unremarkable. PROCEDURE: The patient was placed on the operating table in supine position. After the induction of general anesthesia, and placement of a Jennings catheter and sequential compression devices on the patient's lower extremities, the abdomen was prepped with ChloraPrep and draped in sterile fashion. A timeout was taken, and a midline incision was made from above to below the umbilicus, using a scalpel. The peritoneal cavity was entered under direct vision, and all adhesions lysed using blunt and sharp dissection. The abscess cavity was entered and its contents drained and sent for culture and sensitivity. The perforated sigmoid colon was identified and mobilized laterally along the white line of Toldt. The mesentery was then scored, and divided using combination of the Ligasure device and Velma clamps and 0 silk ties. An area proximal to the perforation and acute inflammation was identified, and the colon divided there using the ADILENE stapling device proximally and Trupti clamps distally. The distal point of resection was identified at the rectosigmoid junction, and a TA90 stapler placed across the rectosigmoid junction, and Trupti clamps proximally, and then the colon divided distally and passed off the operative field and sent for pathological examination. Copious irrigation was carried out, and hemostasis was checked and noted to be good. The splenic flexure was then taken down using blunt and sharp dissection to mobilize the splenic flexure and the colon to gain length, bringing the colon through the abdominal wall through the colostomy. A colostomy site was identified on the abdominal wall, and an opening in the abdominal wall was created using electrocautery. The proximal bowel was then passed through this opening, and then the abdomen was further irrigated with saline, and hemostasis verified. The 10-mm Jair-Paulson drain was introduced through a stab wound in the right lower abdomen and placed in the sacral hollow and abscess cavity. The drain was fixed to the skin with 2-0 silk suture. The abdominal cavity was then closed using continuous number 1 looped Maxon. The subcutaneous tissue was copiously irrigated, and the skin around the umbilicus reapproximated with surgical rambo. A sterile towel was placed over the incision, and then the colostomy matured by excising the previous staple line and maturing the colostomy to the abdominal wall with interrupted 3-0 Vicryl sutures. An ostomy appliance and bag were placed. The midline wound was packed with saline soaked Kerlix and covered with dry sterile dressings. The drain was connected to bulb self suction, and the patient then transferred to post anesthesia care unit in stable condition intubated. Estimated blood loss approximately 200 mL. Replacements crystalloid. DRAINS: One 10-mm Jair-Paulson. SPECIMEN: Portion of sigmoid colon to pathology. I, Taqueria Prado, was physically present in the operating room from the time the patient was placed on the operating room table until she was transferred to the postanesthesia care unit in [facility]. MD CE [id number]
[2017-01-22] MEDS: ALBUTEROL SO4 2.5/IPRATROPIUM 0.5 INH SOL 3 ML VIAL.NEB. NEB SCH ×5 (00:05→23:07)
[2017-01-22] MEDS: METOPROLOL TARTRATE 5 MG/5 ML VIAL IVPB SCH ×3 (02:00→18:19)
[2017-01-22] MEDS: MEROPENEM 1 GM in DEXTROSE 5%-WATER - 100 ML IVPB SCH ×2 (04:41→18:21)
[2017-01-22] MEDS: HEPARIN INFUSION - 500 ML IVPB SCH ×2 (05:27→18:21)
[2017-01-22 06:30] LABS: MCH 32.8 pg (25.7-33.7); MCHC 32.9 g/dl (32.0-36.0); MEAN CELL VOLUME 99.5 fl (80-96); MEAN PLT VOLUME 8.8 fl (7.5-11.1); PLATELET COUNT 444 K/MM3 (134-434); RDW 14.7 % (11.6-15.6); WHITE BLOOD COUNT 16.5 K/mm3 (4.0-10.0)
[2017-01-22 06:58] LABS: ALBUMIN 1.7 g/dl (3.4-5.0); ALK PHOS 74 U/L (45-117); ANION GAP 8 (8-16); BILIRUBIN,TOTAL 0.5 mg/dL (0.2-1.0); CALCIUM 8.3 mg/dL (8.5-10.1); CO2 25 mmol/L (21-32); CREATININE 1.8 mg/dL (0.55-1.02); GLUCOSE,RANDOM 103 mg/dL (74-106); PHOSPHOROUS 3.5 mg/dL (2.5-4.9); SGOT/AST 50 U/L (15-37); SGPT/ALT 20 U/L (12-78); TOT PROT 4.7 g/dl (6.4-8.2)
--- NOTE | 2017-01-22 09:11 | PN ---
Progress Note, Physician Chief Complaint: Sedated on respirator History of Present Illness: On respirator - Current Medication List Current Medications: Active Medications Acetaminophen (Ofirmev Injection -) 1,000 mg IVPB Q6H PRN PRN Reason: FEVER Last Admin: 01/17/17 18:18 Dose: 1,000 mg Albuterol/Ipratropium (Duoneb -) 1 amp NEB QIDR [facility] Last Admin: 01/22/17 07:21 Dose: 1 amp Chlorhexidine Gluconate (Hibiclens For Decolonization -) 1 applic TP HS [facility] Last Admin: 01/21/17 21:38 Dose: 1 applic Fentanyl (Sublimaze Injection -) 50 mcg IVPUSH Q1H PRN PRN Reason: PAIN Stop: 01/22/17 18:14 Heparin Sodium (Porcine) (Heparin -) 1,000 unit IVPUSH PRN PRN PRN Reason: Heparin Last Admin: 01/17/17 23:46 Dose: 1,000 unit Heparin Sodium (Porcine) (Heparin -) 5,000 unit IVPUSH PRN PRN PRN Reason: Heparin Last Admin: 01/17/17 07:41 Dose: 5,000 unit Famotidine/Sodium Chloride (Pepcid 20 Mg Premixed Ivpb -) 50 mls @ 100 mls/hr IVPB BID [facility] Last Admin: 01/21/17 21:38 Dose: 100 mls/hr Fluconazole (Diflucan 200 Mg/D5w Premixed Ivpb -) 100 mls @ 100 mls/hr IVPB DAILY [facility] Last Admin: 01/21/17 09:18 Dose: 100 mls/hr Heparin Sodium/Dextrose (Heparin Infusion -) 500 mls @ 20 mls/hr IVPB TITR DAVID ; 1,000 UNITS/HR PRN Reason: Protocol Last Admin: 01/22/17 05:27 Dose: 22 mls/hr Meropenem 1 gm/ Dextrose 100 mls @ 100 mls/hr IVPB BID@0500,1700 [facility] PRN Reason: Protocol Last Admin: 01/22/17 04:41 Dose: 100 mls/hr Vancomycin HCl 1,250 mg/ (Dextrose) 250 mls @ 250 mls/hr IVPB DAILY [facility] PRN Reason: Protocol Last Admin: 01/21/17 09:24 Dose: 250 mls/hr Dextrose/Sodium Chloride (D5-1/2ns -) 1,000 mls @ 42 mls/hr IV ASDIR DAVID Last Admin: 01/21/17 12:45 Dose: Not Given Midazolam HCl 100 mg/ Sodium (Chloride) 100 mls @ 2 mls/hr IVPB TITR DAVID; 2 MG/ HR PRN Reason: Protocol Last Admin: 01/21/17 18:15 Dose: 2 mls/hr Metoprolol Tartrate (Lopressor Injection -) 5 mg IVPB Q8H-IV DAVID Last Admin: 01/22/17 02:00 Dose: 5 mg - Objective Vital Signs: Vital Signs Temperature 99.3 F 01/22/17 02:00 Pulse Rate 76 01/22/17 08:00 Respiratory Rate 18 01/22/17 08:00 Blood Pressure 113/64 01/22/17 08:00 O2 Sat by Pulse Oximetry (%) 98 01/21/17 22:00 Constitutional: Yes: Mild Distress Eyes: Yes: WNL HENT: Yes: WNL Neck: Yes: Supple Cardiovascular: Yes: Pulse Irregular Respiratory: Yes: Mechanically Ventilated Gastrointestinal: Yes: Hypoactive Bowel Sounds ...Rectal Exam: Yes: Deferred Genitourinary: Yes: Jennings Present Musculoskeletal: Yes: Muscle Weakness Edema: Yes Edema: LLE: 1+, RLE: 1+ Neurological: Yes: Lethargy Labs: CBC, BMP 01/22/17 05:55 01/22/17 05:55 INR, PTT INR 1.41 (0.82-1.09) H 01/17/17 05:30 Assessment/Plan Case discussed with resident and Dr Contreras
--- NOTE | 2017-01-22 09:19 | PN ---
Progress Note (short form) - Note Progress Note: Attending Surgeon POD # 13 Remains in ICU on vent; minimally sedated; enteral feeding in progress VSS AF abdomen-soft; ostomy functioning; drains in place and functioning; wound no change WBC 16.5; new culture results noted IMP: s/p Hartmans for perforated diverticulitis PLAN: Continue present tx. as per ICU and consultants; prognosis remains poor; this was discussed w/the patients daughter yesterday; case d/w Dr. Sawyer as well. Dr. Terry Caraballo will cover in my absence through 01/25/17. Taqueria Prado MD FACS
[2017-01-22] MEDS ORDERED: PT OWN MED DRAWER 7, Y5N ONE (10:02)
[2017-01-22] MEDS: VANCOMYCIN 1,250 MG in DEXTROSE 5%-WATER - 250 ML IVPB SCH (10:04)
[2017-01-22] MEDS: FLUCONAZOLE 200 MG/D5W 100 ML IVPB SCH (10:05)
[2017-01-22] MEDS: FAMOTIDINE 20 MG/50 ML IVPB 50 ML IVPB SCH ×2 (10:06→21:58)
[2017-01-22] MEDS: DEXTROSE 5%-0.45% SALINE 1,000 ML IV SCH (14:30)
--- NOTE | 2017-01-22 15:02 | PN ---
Teaching Attending Note Name of Resident: Erika Higuera ATTENDING PHYSICIAN STATEMENT I saw and evaluated the patient. I reviewed the resident's note and discussed the case with the resident. I agree with the resident's findings and plan as documented. SUBJECTIVE: Patient seen and examined at bedside. Remains intubated. Sedated. AC Mode of vent, 80% FiO2. No pressors. (+) Dark liquid stools noted in ostomy, seems to be tolerating feeds. Intake & Output 01/19/17 01/20/17 01/21/17 01/22/17 23:59 23:59 23:59 23:59 Intake Total 2174 3081 2311 1038 Output Total 2336 181 4111 195 Balance 914 2176 1226 843 Weight 239 lb 3.225 oz 240 lb 4.862 oz 253 lb 1.451 oz 116 lb 5 oz Last Vital Signs Temp Pulse Resp BP Pulse Ox 98.6 F 76 20 130/68 100 01/22/17 10:00 01/22/17 12:00 01/22/17 12:43 01/22/17 12:00 01/22/17 10:23 Active Medications Acetaminophen (Ofirmev Injection -) 1,000 mg IVPB Q6H PRN PRN Reason: FEVER Last Admin: 01/17/17 18:18 Dose: 1,000 mg Albuterol/Ipratropium (Duoneb -) 1 amp NEB QIDR [facility] Last Admin: 01/22/17 11:43 Dose: 1 amp Chlorhexidine Gluconate (Hibiclens For Decolonization -) 1 applic TP HS [facility] Last Admin: 01/21/17 21:38 Dose: 1 applic Fentanyl (Sublimaze Injection -) 50 mcg IVPUSH Q1H PRN PRN Reason: PAIN Stop: 01/22/17 18:14 Heparin Sodium (Porcine) (Heparin -) 1,000 unit IVPUSH PRN PRN PRN Reason: Heparin Last Admin: 01/17/17 23:46 Dose: 1,000 unit Heparin Sodium (Porcine) (Heparin -) 5,000 unit IVPUSH PRN PRN PRN Reason: Heparin Last Admin: 01/17/17 07:41 Dose: 5,000 unit Famotidine/Sodium Chloride (Pepcid 20 Mg Premixed Ivpb -) 50 mls @ 100 mls/hr IVPB BID [facility] Last Admin: 01/22/17 10:06 Dose: 100 mls/hr Fluconazole (Diflucan 200 Mg/D5w Premixed Ivpb -) 100 mls @ 100 mls/hr IVPB DAILY [facility] Last Admin: 01/22/17 10:05 Dose: 100 mls/hr Heparin Sodium/Dextrose (Heparin Infusion -) 500 mls @ 20 mls/hr IVPB TITR DAVID ; 1,000 UNITS/HR PRN Reason: Protocol Last Admin: 01/22/17 05:27 Dose: 22 mls/hr Meropenem 1 gm/ Dextrose 100 mls @ 100 mls/hr IVPB BID@0500,1700 DAVID PRN Reason: Protocol Last Admin: 01/22/17 04:41 Dose: 100 mls/hr Vancomycin HCl 1,250 mg/ (Dextrose) 250 mls @ 250 mls/hr IVPB DAILY DAVID PRN Reason: Protocol Last Admin: 01/22/17 10:04 Dose: 250 mls/hr Dextrose/Sodium Chloride (D5-1/2ns -) 1,000 mls @ 42 mls/hr IV ASDIR [facility] Last Admin: 01/22/17 14:30 Dose: 42 mls/hr Midazolam HCl 100 mg/ Sodium (Chloride) 100 mls @ 2 mls/hr IVPB TITR DAVID; 2 MG/ HR PRN Reason: Protocol Last Admin: 01/21/17 18:15 Dose: 2 mls/hr Metoprolol Tartrate (Lopressor Injection -) 5 mg IVPB Q8H-IV DAVID Last Admin: 01/22/17 10:05 Dose: 5 mg Constitutional: Yes: Intubated and sedated Eyes: Yes: (-) Pallor (-) Icterus HENT: Yes: Normocephalic Neck: Yes: Supple, Trachea Midline Cardiovascular: Yes: Tachycardia, Pulse Irregular, S1, S2 Respiratory: Yes: Bilateral scattered Rhonchi and crackles Gastrointestinal: Yes: Soft, (+) BS, brownish discharge from drain, incision C/D /I, appropriately tender, ostomy pink with some output Genitourinary: Yes: Jennings Present Extremities: Yes: WNL Edema: No Integumentary: Yes: Tenting Wound/Incision: Yes: Clean/Dry Neurological: Yes: Alert, non-focal Psychiatric: Yes: Cooperative Labs: Laboratory Results - last 24 hr 08/09/17 08/09/17 08/09/17 13:35 20:25 21:30 WBC 18.9 H Corrected WBC (auto) 15.24 RBC 2.72 L Hgb 8.8 L Hct 27.0 L MCV 99.2 H MCH 32.5 MCHC 32.7 RDW 14.3 Plt Count 439 H MPV 8.5 Neutrophils % 79.0 Lymphocytes % 8.0 D Monocytes % 4.0 Band Neutrophils 6.0 Myelocytes 3 H D Nucleated RBCs 24 H* Differential Comment Manual diff done Platelet Estimate Increased Platelet Comment Few giant plts Morphology Comment Slide scanned PTT (Actin FS) 98.6 H Sodium Potassium Chloride Carbon Dioxide Anion Gap BUN Creatinine Creat Clearance w eGFR Random Glucose Calcium Phosphorus Magnesium Total Bilirubin AST ALT Alkaline Phosphatase Total Protein Albumin Stool Occult Blood Positive 01/22/17 01/22/17 05:55 05:55 WBC 16.5 H Corrected WBC (auto) RBC 2.90 L Hgb 9.5 L Hct 28.8 L MCV 99.5 H MCH 32.8 MCHC 32.9 RDW 14.7 Plt Count 444 H MPV 8.8 Neutrophils % Lymphocytes % Monocytes % Band Neutrophils Myelocytes Nucleated RBCs Differential Comment Platelet Estimate Platelet Comment Morphology Comment PTT (Actin FS) Sodium 141 Potassium 3.6 Chloride 108 H Carbon Dioxide 25 Anion Gap 8 BUN 34 H Creatinine 1.8 H Creat Clearance w eGFR 26.94 Random Glucose 103 Calcium 8.3 L Phosphorus 3.5 Magnesium 2.0 Total Bilirubin 0.5 AST 50 H D ALT 20 D Alkaline Phosphatase 74 D Total Protein 4.7 L Albumin 1.7 L Stool Occult Blood Assessment/Plan Intra-abdominal collection Perforated diverticulitis S/P Sigmoid resection with colostomy. 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 component of BALJIT -> Time period too long) Wean FiO2 as tolerated Monitor drainage IVF Renal evaluation Strict I&O Pain control Feeds as tolerated IV Heparin Will likely need to diurese before extubation Dr Anglin Critical Care Time Total Critical Care Time: 35 Critical Care Statement: The care of this patient involved high complexity decision making to prevent further life threatening deterioration of the patient 's condition and/or to evaluate & treat vital organ system(s) failure or risk of failure.
--- NOTE | 2017-01-22 15:08 | PN ---
Physical Exam: SUBJECTIVE: Patient seen and examined at bed side this morning. Intubated. Off sedation but very drowsy. OBJECTIVE: Vital Signs Period Temp Pulse Resp BP Sys/Riley Pulse Ox Last 24 Hr 98.6 F-99.3 F 64-88 16-26 93-143/37-88 98-100 GENERAL: The patient is intubated. HEAD: Normal with no signs of trauma. EYES: PERRL, No pallor or icterus. ENT: Ears normal, moist mucous membranes. NECK: Supple. LUNGS: B/L decreased breath sounds equal, bibasilar crackles, accessory muscle use +. HEART: Regular rate and rhythm, S1, S2 without murmur, rub or gallop. ABDOMEN: Surgical site seen, no serosanguinous fluids, area looked dry, ostomy looks pink with good function. 2 JAMES drain ,Soft, mildly tender, nondistended, normoactive bowel sounds, no guarding, no rebound, no hepatosplenomegaly, no masses. EXTREMITIES: 2+ pulses, warm, well-perfused, B/L peripheral pitting edema. NEUROLOGICAL: No facial droop, gait not observed. PSYCH: Normal mood, normal affect. SKIN: Warm, dry, normal turgor, no rashes or lesions note Laboratory Results - last 24 hr 01/21/17 01/21/17 01/21/17 13:35 20:25 21:30 WBC 18.9 H Corrected WBC (auto) 15.24 RBC 2.72 L Hgb 8.8 L Hct 27.0 L MCV 99.2 H MCH 32.5 MCHC 32.7 RDW 14.3 Plt Count 439 H MPV 8.5 Neutrophils % 79.0 Lymphocytes % 8.0 D Monocytes % 4.0 Band Neutrophils 6.0 Myelocytes 3 H D Nucleated RBCs 24 H* Differential Comment Manual diff done Platelet Estimate Increased Platelet Comment Few giant plts Morphology Comment Slide scanned PTT (Actin FS) 98.6 H Sodium Potassium Chloride Carbon Dioxide Anion Gap BUN Creatinine Creat Clearance w eGFR Random Glucose Calcium Phosphorus Magnesium Total Bilirubin AST ALT Alkaline Phosphatase Total Protein Albumin Stool Occult Blood Positive 01/22/17 01/22/17 05:55 05:55 WBC 16.5 H Corrected WBC (auto) RBC 2.90 L Hgb 9.5 L Hct 28.8 L MCV 99.5 H MCH 32.8 MCHC 32.9 RDW 14.7 Plt Count 444 H MPV 8.8 Neutrophils % Lymphocytes % Monocytes % Band Neutrophils Myelocytes Nucleated RBCs Differential Comment Platelet Estimate Platelet Comment Morphology Comment PTT (Actin FS) Sodium 141 Potassium 3.6 Chloride 108 H Carbon Dioxide 25 Anion Gap 8 BUN 34 H Creatinine 1.8 H Creat Clearance w eGFR 26.94 Random Glucose 103 Calcium 8.3 L Phosphorus 3.5 Magnesium 2.0 Total Bilirubin 0.5 AST 50 H D ALT 20 D Alkaline Phosphatase 74 D Total Protein 4.7 L Albumin 1.7 L Stool Occult Blood Active Medications Generic Name Dose Route Start Last Admin Trade Name Freq PRN Reason Stop Dose Admin Acetaminophen 1,000 mg 01/11/17 18:03 01/17/17 18:18 Ofirmev Injection - IVPB 1,000 mg Q6H PRN Administration FEVER Albuterol/Ipratropium 1 amp 01/11/17 00:00 01/22/17 11:43 Duoneb - NEB 1 amp QIDR DAVID Administration Chlorhexidine Gluconate 1 applic 01/20/17 22:00 01/21/17 21:38 Hibiclens For Decolonization - TP 1 applic HS DAVID Administration Fentanyl 50 mcg 01/21/17 18:10 Sublimaze Injection - IVPUSH 01/22/17 18:14 Q1H PRN PAIN Heparin Sodium (Porcine) 1,000 unit 01/12/17 16:52 01/17/17 23:46 Heparin - IVPUSH 1,000 unit PRN PRN Administration Heparin Heparin Sodium (Porcine) 5,000 unit 01/12/17 16:52 01/17/17 07:41 Heparin - IVPUSH 5,000 unit PRN PRN Administration Heparin Famotidine/Sodium Chloride 50 mls @ 100 mls/hr 01/10/17 10:00 01/22/17 10:06 Pepcid 20 Mg Premixed Ivpb - IVPB 100 mls/hr BID DAVID Administration Fluconazole 100 mls @ 100 mls/hr 01/11/17 13:00 01/22/17 10:05 Diflucan 200 Mg/D5w Premixed Ivpb - IVPB 100 mls/hr DAILY DAVID Administration Heparin Sodium/Dextrose 500 mls @ 20 mls/hr 01/12/17 17:00 01/22/17 05:27 Heparin Infusion - IVPB 22 mls/hr TITR DAVID Administration Protocol 1,000 UNITS/HR Meropenem 1 gm/ Dextrose 100 mls @ 100 mls/hr 01/15/17 17:00 01/22/17 04:41 IVPB 100 mls/hr BID@0500,1700 DAVID Administration Protocol Dextrose/Sodium Chloride 1,000 mls @ 42 mls/hr 01/17/17 11:45 01/22/17 14:30 D5-1/2ns - IV 42 mls/hr ASDIR DAVID Administration Midazolam HCl 100 mg/ Sodium 100 mls @ 2 mls/hr 01/21/17 18:15 01/21/17 18:15 Chloride IVPB 2 mls/hr TITR DAVID Administration Protocol 2 MG/HR Metoprolol Tartrate 5 mg 01/11/17 15:20 01/22/17 10:05 Lopressor Injection - IVPB 5 mg Q8H-IV DAVID Administration ASSESSMENT/PLAN: Patient is 81 year old female with a history of diverticulosis presents to the ED with perforated diverticulitis now post op day 5 s/p sigmoid resection with colostomy. # Acute hypoxic respiratory failure Intubated to protect the airways. Off sedation, still drowsy. # JG Recently had CT abdomen with IV contrast. Creatinine increased from 1.1-->1.6--->1.[address], monitor Urinary output- 1085mls yesterday Kidney USG ordered Not on any nephrotoxic drugs Possibly would benefit from fluids but cannot give a lot of fluids due to CHF # Hypotensive now improved, MAP is 80 Central line to be changed 12/20/16 Might get fluids overloaded if more fluids are given. # Sepsis likely secondary to perforated diverticulitis s/p sigmoid resection with colostomy day 7 with an abdominal abscess s/p IR guided drainage Improving Leukocytosis. IR guided drainange done day 3, abscess grew Lactose fermenting gm negative bacilli, Strep sp Continue IV Meropenam Day 8 Blood culture/Urine culture negative. # NSTEMI after surgery On Heparin Drip Troponin trending down # Acute Kidney injury likely ATN Creatinine 1.1---> 1.6---> 1.8 today Continue hydration Avoid nephrotoxic drugs # Atrial fibrillation-rate controlled On Heparin Drip Rate control with metoprolol 5mg IV q8h # FEN: D5-1/2 NS @ 42mls/hr Electrolytes to be repeated tomorrow Started enteral feeds 1.5 Jevity @ 10-15 cc/hr. # Prophylaxis For DVT: On Heparin drip For GI: IV Famotidine 20mg BID # Code Status: Full Code # Dispo: Admitted in ICU. Continue ICU care Prognosis is poor. Illness, Investigation and Plan of care explained to the family members yesterday. They verbalized understanding. Case seen and discussed with Dr. Anglin. Visit type - Emergency Visit Emergency Visit: Yes ED Registration Date: 01/09/17 Care time: The patient presented to the Emergency Department on the above date and was hospitalized for further evaluation of their emergent condition. - New Patient This patient is new to me today: No - Critical Care Critical Care patient: Yes Total Critical Care Time (in minutes): 35 Critical Care Statement: The care of this patient involved high complexity decision making to prevent further life threatening deterioration of the patient 's condition and/or to evalute & treat vital organ system(s) failure or risk of failure.
--- NOTE | 2017-01-22 20:10 | PN ---
Progress Note (short form) - Note Progress Note: 81 year female with severe LV dysfuntion, ruptured diverticulitis S/P colostomy, abdominal abscess,respiratory failure,intubated and sedated.H/O hypertension. Heart rate is controlled on IV betablocker. Active Medications Acetaminophen (Ofirmev Injection -) 1,000 mg IVPB Q6H PRN PRN Reason: FEVER Last Admin: 01/17/17 18:18 Dose: 1,000 mg Albuterol/Ipratropium (Duoneb -) 1 amp NEB QIDR [facility] Last Admin: 01/22/17 18:47 Dose: 1 amp Chlorhexidine Gluconate (Hibiclens For Decolonization -) 1 applic TP HS [facility] Last Admin: 01/21/17 21:38 Dose: 1 applic Heparin Sodium (Porcine) (Heparin -) 1,000 unit IVPUSH PRN PRN PRN Reason: Heparin Last Admin: 01/17/17 23:46 Dose: 1,000 unit Heparin Sodium (Porcine) (Heparin -) 5,000 unit IVPUSH PRN PRN PRN Reason: Heparin Last Admin: 01/17/17 07:41 Dose: 5,000 unit Famotidine/Sodium Chloride (Pepcid 20 Mg Premixed Ivpb -) 50 mls @ 100 mls/hr IVPB BID [facility] Last Admin: 01/22/17 10:06 Dose: 100 mls/hr Fluconazole (Diflucan 200 Mg/D5w Premixed Ivpb -) 100 mls @ 100 mls/hr IVPB DAILY [facility] Last Admin: 01/22/17 10:05 Dose: 100 mls/hr Heparin Sodium/Dextrose (Heparin Infusion -) 500 mls @ 20 mls/hr IVPB TITR DAVID ; 1,000 UNITS/HR PRN Reason: Protocol Last Admin: 01/22/17 18:21 Dose: 19 mls/hr Meropenem 1 gm/ Dextrose 100 mls @ 100 mls/hr IVPB BID@0500,1700 [facility] PRN Reason: Protocol Last Admin: 01/22/17 18:21 Dose: 100 mls/hr Dextrose/Sodium Chloride (D5-1/2ns -) 1,000 mls @ 42 mls/hr IV ASDIR [facility] Last Admin: 01/22/17 14:30 Dose: 42 mls/hr Midazolam HCl 100 mg/ Sodium (Chloride) 100 mls @ 2 mls/hr IVPB TITR DAVID; 2 MG/ HR PRN Reason: Protocol Last Admin: 01/21/17 18:15 Dose: 2 mls/hr Metoprolol Tartrate (Lopressor Injection -) 5 mg IVPB Q8H-IV DAVID Last Admin: 01/22/17 18:19 Dose: 5 mg Vital Signs - 8 hr 01/22/17 01/22/17 01/22/17 12:43 14:00 15:31 Temperature 98 F Pulse Rate 78 78 Respiratory 20 20 Rate Blood Pressure 132/60 O2 Sat by Pulse 96 Oximetry (%) 01/22/17 01/22/17 01/22/17 16:00 17:10 18:11 Temperature 99 F 99.1 F Pulse Rate 68 88 Respiratory 18 18 20 Rate Blood Pressure 118/62 126/63 O2 Sat by Pulse Oximetry (%) 01/22/17 01/22/17 18:19 19:22 Temperature Pulse Rate 88 Respiratory 24 Rate Blood Pressure 126/43 O2 Sat by Pulse Oximetry (%) NECK: Supple, NO JVD,+HJR, carotids 1+ HEART: Heart sounds are diastant, no murmuror gallops were appreciated. LUNGS: Decreased breath sounds at both bases. ABDOMEN. Diffuse tenderness on palpation. EXT; No calf tenderness, 2+bilateral ankle edema Abnormal Lab Results 01/21/17 01/21/17 01/22/17 20:25 21:30 05:55 WBC 18.9 H 16.5 H RBC 2.72 L 2.90 L Hgb 8.8 L 9.5 L Hct 27.0 L 28.8 L MCV 99.2 H 99.5 H Plt Count 439 H 444 H Myelocytes 3 H D Nucleated RBCs 24 H* PTT (Actin FS) 98.6 H Chloride BUN Creatinine Calcium AST Total Protein Albumin 01/22/17 01/22/17 05:55 15:50 WBC RBC Hgb Hct MCV Plt Count Myelocytes Nucleated RBCs PTT (Actin FS) 121.0 H Chloride 108 H BUN 34 H Creatinine 1.8 H Calcium 8.3 L AST 50 H D Total Protein 4.7 L Albumin 1.7 L 1. Severe LV dysfunction. 2. Abdominal abscess. 3. Ruptured diverticulits. 4. Colostomy. 5. H/o Hypertension. 6. Abdominal fluid collection secondary to abscess. 7. CLBBB. 8. Ventricular premature beats. 9. Respiratory failure. 10.Abdominal fluid collection. Recommendation: 1. Management as per medicare nurse 2. Continue IV betablockers. Prognosis: critical.
[2017-01-22] MEDS: MIDAZOLAM 100 MG in SODIUM CHLORIDE 100 ML IVPB SCH (21:57)
[2017-01-22] MEDS: CHLORHEXIDINE GLUCONATE 4% CLEANSER FOR DECOLONIZATION TP SCH (21:57)
[2017-01-22] MEDS: ACETAMINOPHEN 1000 MG/100 ML VIAL (NON FORMULARY) IVPB PRN (21:58)
[2017-01-23] MEDS: METOPROLOL TARTRATE 5 MG/5 ML VIAL IVPB SCH ×3 (02:49→17:49)
[2017-01-23] MEDS: MEROPENEM 1 GM in DEXTROSE 5%-WATER - 100 ML IVPB SCH ×2 (04:26→17:49)
[2017-01-23 06:00] LABS: MCH 32.3 pg (25.7-33.7); MCHC 32.2 g/dl (32.0-36.0); MEAN CELL VOLUME 100.2 fl (80-96); MEAN PLT VOLUME 8.9 fl (7.5-11.1); PLATELET COUNT 372 K/MM3 (134-434); RDW 15.3 % (11.6-15.6); WHITE BLOOD COUNT 15.8 K/mm3 (4.0-10.0)
[2017-01-23] MEDS: ALBUTEROL SO4 2.5/IPRATROPIUM 0.5 INH SOL 3 ML VIAL.NEB. NEB SCH ×4 (06:19→23:22)
[2017-01-23 06:22] LABS: ALBUMIN 1.5 g/dl (3.4-5.0); ALK PHOS 82 U/L (45-117); ANION GAP 9 (8-16); BILIRUBIN,TOTAL 0.5 mg/dL (0.2-1.0); CALCIUM 8.3 mg/dL (8.5-10.1); CO2 25 mmol/L (21-32); GLUCOSE,RANDOM 109 mg/dL (74-106); MAGNESIUM 2.1 mg/dL (1.8-2.4); PHOSPHOROUS 4.2 mg/dL (2.5-4.9); SGOT/AST 47 U/L (15-37); SGPT/ALT 18 U/L (12-78); TOT PROT 4.3 g/dl (6.4-8.2)
[2017-01-23 07:48] LABS: ARTERIAL BLD GAS O2 SATURATION 98.3 % (90-98.9); ARTERIAL BLOOD GAS BASE EXCESS -3.8 meq/l (-2-2); ARTERIAL BLOOD GAS HCO3 21.7 meq/L (22-26)
[2017-01-23 07:51] LABS: ALLENS TEST POSITIVE; ART PUNCT SITE LEFT RADIAL; ARTERIAL BLOOD GAS pH 7.32 (7.35-7.45); LPM/O2% 70%; MECH. VENT. YES; PT. ON O2? YES; TYPE OF O2 VENT; VENT RATE 16; VT/PRESS 450
--- NOTE | 2017-01-23 09:07 | PN ---
<Adam Velazquez - Last Filed: 01/23/17 11:14> Physical Exam: SUBJECTIVE: Patient seen and examined OBJECTIVE: Vital Signs Period Temp Pulse Resp BP Sys/Riley Pulse Ox Last 24 Hr 98 F-100.2 F 68-93 16-24 98-132/43-68 95-99 GENERAL: The patient is awake, alert, and fully oriented, in no acute distress. HEAD: Normal with no signs of trauma. EYES: PERRL, extraocular movements intact, sclera anicteric, conjunctiva clear. No ptosis. ENT: Ears normal, nares patent, oropharynx clear without exudates, moist mucous membranes. NECK: Trachea midline, full range of motion, supple. LUNGS: Breath sounds equal, clear to auscultation bilaterally, no wheezes, no crackles, no accessory muscle use. HEART: Regular rate and rhythm, S1, S2 without murmur, rub or gallop. ABDOMEN: Soft, nontender, nondistended, normoactive bowel sounds, no guarding, no rebound, no hepatosplenomegaly, no masses. EXTREMITIES: 2+ pulses, warm, well-perfused, no edema. NEUROLOGICAL: Cranial nerves II through XII grossly intact. Normal speech, gait not observed. PSYCH: Normal mood, normal affect. SKIN: Warm, dry, normal turgor, no rashes or lesions noted Laboratory Results - last 24 hr 01/22/17 01/22/17 01/23/17 15:50 23:45 05:30 WBC 15.8 H RBC 2.64 L Hgb 8.5 L D Hct 26.4 L MCV 100.2 H MCH 32.3 MCHC 32.2 RDW 15.3 Plt Count 372 MPV 8.9 PTT (Actin FS) 121.0 H 58.0 H D Puncture Site ABG pH ABG pCO2 at Pt Temp ABG pO2 at Pt Temp ABG HCO3 ABG O2 Sat (Measured) ABG O2 Content ABG Base Excess Jose A Test O2 Delivery Device Oxygen Flow Rate Vent Mode Vent Rate Mechanical Rate PEEP Pressure Support Vent Sodium Potassium Chloride Carbon Dioxide Anion Gap BUN Creatinine Creat Clearance w eGFR Random Glucose Calcium Phosphorus Magnesium Total Bilirubin AST ALT Alkaline Phosphatase Total Protein Albumin 01/23/17 01/23/17 01/23/17 05:30 05:30 07:38 WBC RBC Hgb Hct MCV MCH MCHC RDW Plt Count MPV PTT (Actin FS) 76.6 H D Puncture Site Left radial ABG pH 7.32 L ABG pCO2 at Pt Temp 43.8 ABG pO2 at Pt Temp 113.0 H ABG HCO3 21.7 L ABG O2 Sat (Measured) 98.3 ABG O2 Content 15.7 ABG Base Excess -3.8 L Jose A Test Positive O2 Delivery Device Vent Oxygen Flow Rate 70% Vent Mode A/c Vent Rate 16 Mechanical Rate Yes PEEP 5.0 Pressure Support Vent 450 Sodium 140 Potassium 3.6 Chloride 106 Carbon Dioxide 25 Anion Gap 9 BUN 36 H Creatinine 2.0 H Creat Clearance w eGFR 23.85 Random Glucose 109 H Calcium 8.3 L Phosphorus 4.2 Magnesium 2.1 Total Bilirubin 0.5 AST 47 H ALT 18 Alkaline Phosphatase 82 Total Protein 4.3 L Albumin 1.5 L Active Medications Generic Name Dose Route Start Last Admin Trade Name Freq PRN Reason Stop Dose Admin Acetaminophen 1,000 mg 01/11/17 18:03 01/22/17 21:58 Ofirmev Injection - IVPB 1,000 mg Q6H PRN Administration FEVER Albuterol/Ipratropium 1 amp 01/11/17 00:00 01/23/17 06:19 Duoneb - NEB 1 amp QIDR DAVID Administration Chlorhexidine Gluconate 1 applic 01/20/17 22:00 01/22/17 21:57 Hibiclens For Decolonization - TP 1 applic HS DAVID Administration Furosemide 40 mg 01/23/17 12:00 Lasix Injection - IVPB 01/23/17 12:01 ONCE ONE Heparin Sodium (Porcine) 1,000 unit 01/12/17 16:52 01/17/17 23:46 Heparin - IVPUSH 1,000 unit PRN PRN Administration Heparin Heparin Sodium (Porcine) 5,000 unit 01/12/17 16:52 01/17/17 07:41 Heparin - IVPUSH 5,000 unit PRN PRN Administration Heparin Famotidine/Sodium Chloride 50 mls @ 100 mls/hr 01/10/17 10:00 01/23/17 09:42 Pepcid 20 Mg Premixed Ivpb - IVPB 100 mls/hr BID DAVID Administration Fluconazole 100 mls @ 100 mls/hr 01/11/17 13:00 01/23/17 09:45 Diflucan 200 Mg/D5w Premixed Ivpb - IVPB 100 mls/hr DAILY DAVID Administration Heparin Sodium/Dextrose 500 mls @ 20 mls/hr 01/12/17 17:00 01/23/17 07:50 Heparin Infusion - IVPB 900 units/hr TITR DAVID Titration Protocol 1,000 UNITS/HR Meropenem 1 gm/ Dextrose 100 mls @ 100 mls/hr 01/15/17 17:00 01/23/17 04:26 IVPB 100 mls/hr BID@0500,1700 DAVID Administration Protocol Dextrose/Sodium Chloride 1,000 mls @ 42 mls/hr 01/17/17 11:45 01/22/17 14:30 D5-1/2ns - IV 42 mls/hr ASDIR DAVID Administration Midazolam HCl 100 mg/ Sodium 100 mls @ 2 mls/hr 01/21/17 18:15 01/22/17 21:57 Chloride IVPB 2 mls/hr TITR DAVID Administration Protocol 2 MG/HR Metoprolol Tartrate 5 mg 01/11/17 15:20 01/23/17 09:46 Lopressor Injection - IVPB 5 mg Q8H-IV DAVID Administration ASSESSMENT/PLAN: <Duane Oswald - Last Filed: 02/21/17 23:55> Physical Exam: SUBJECTIVE: Patient seen and examined at bed side this morning. Intubated. Off sedation sleeping in her bed. OBJECTIVE: Vital Signs Period Temp Pulse Resp BP Sys/Riley Pulse Ox Last 24 Hr 98 F-100.2 F 68-93 16-24 98-132/43-68 96-100 GENERAL: The patient is intubated awake, alert, and fully oriented, in no acute distress. HEAD: Normal with no signs of trauma. EYES: not evaluated ENT: Ears normal, moist mucous membranes. NECK: Trachea midline, supple. LUNGS: decreased breath sounds B/L, bibasilar crackles, accessory muscle use +. HEART: Regular rate and rhythm, S1, S2 without murmur, rub or gallop. ABDOMEN: Surgical site seen, no serosanguinous fluids, area looked dry, ostomy looks pink with good function. 2 JAMES drain ,Soft, mildly tender, nondistended, normoactive bowel sounds, no guarding, no rebound, no hepatosplenomegaly, no masses. EXTREMITIES: 2+ pulses, warm, well-perfused, B/L Pitting edema. NEUROLOGICAL: not evaluated due to sedation. pt less awake than day before. SKIN: Warm, dry, normal turgor, no rashes or lesions noted Laboratory Results - last 24 hr 01/22/17 01/22/17 01/23/17 15:50 23:45 05:30 WBC 15.8 H RBC 2.64 L Hgb 8.5 L D Hct 26.4 L MCV 100.2 H MCH 32.3 MCHC 32.2 RDW 15.3 Plt Count 372 MPV 8.9 PTT (Actin FS) 121.0 H 58.0 H D Puncture Site ABG pH ABG pCO2 at Pt Temp ABG pO2 at Pt Temp ABG HCO3 ABG O2 Sat (Measured) ABG O2 Content ABG Base Excess Jose A Test O2 Delivery Device Oxygen Flow Rate Vent Mode Vent Rate Mechanical Rate PEEP Pressure Support Vent Sodium Potassium Chloride Carbon Dioxide Anion Gap BUN Creatinine Creat Clearance w eGFR Random Glucose Calcium Phosphorus Magnesium Total Bilirubin AST ALT Alkaline Phosphatase Total Protein Albumin 01/23/17 01/23/17 01/23/17 05:30 05:30 07:38 WBC RBC Hgb Hct MCV MCH MCHC RDW Plt Count MPV PTT (Actin FS) 76.6 H D Puncture Site Left radial ABG pH 7.32 L ABG pCO2 at Pt Temp 43.8 ABG pO2 at Pt Temp 113.0 H ABG HCO3 21.7 L ABG O2 Sat (Measured) 98.3 ABG O2 Content 15.7 ABG Base Excess -3.8 L Jose A Test Positive O2 Delivery Device Vent Oxygen Flow Rate 70% Vent Mode A/c Vent Rate 16 Mechanical Rate Yes PEEP 5.0 Pressure Support Vent 450 Sodium 140 Potassium 3.6 Chloride 106 Carbon Dioxide 25 Anion Gap 9 BUN 36 H Creatinine 2.0 H Creat Clearance w eGFR 23.85 Random Glucose 109 H Calcium 8.3 L Phosphorus 4.2 Magnesium 2.1 Total Bilirubin 0.5 AST 47 H ALT 18 Alkaline Phosphatase 82 Total Protein 4.3 L Albumin 1.5 L Active Medications Generic Name Dose Route Start Last Admin Trade Name Freq PRN Reason Stop Dose Admin Acetaminophen 1,000 mg 01/11/17 18:03 01/22/17 21:58 Ofirmev Injection - IVPB 1,000 mg Q6H PRN Administration FEVER Albuterol/Ipratropium 1 amp 01/11/17 00:00 01/23/17 06:19 Duoneb - NEB 1 amp QIDR DAVID Administration Chlorhexidine Gluconate 1 applic 01/20/17 22:00 01/22/17 21:57 Hibiclens For Decolonization - TP 1 applic HS DAVID Administration Heparin Sodium (Porcine) 1,000 unit 01/12/17 16:52 01/17/17 23:46 Heparin - IVPUSH 1,000 unit PRN PRN Administration Heparin Heparin Sodium (Porcine) 5,000 unit 01/12/17 16:52 01/17/17 07:41 Heparin - IVPUSH 5,000 unit PRN PRN Administration Heparin Famotidine/Sodium Chloride 50 mls @ 100 mls/hr 01/10/17 10:00 01/22/17 21:58 Pepcid 20 Mg Premixed Ivpb - IVPB 100 mls/hr BID DAVID Administration Fluconazole 100 mls @ 100 mls/hr 01/11/17 13:00 01/22/17 10:05 Diflucan 200 Mg/D5w Premixed Ivpb - IVPB 100 mls/hr DAILY DAVID Administration Heparin Sodium/Dextrose 500 mls @ 20 mls/hr 01/12/17 17:00 01/23/17 07:50 Heparin Infusion - IVPB 900 units/hr TITR DAVID Titration Protocol 1,000 UNITS/HR Meropenem 1 gm/ Dextrose 100 mls @ 100 mls/hr 01/15/17 17:00 01/23/17 04:26 IVPB 100 mls/hr BID@0500,1700 DAVID Administration Protocol Dextrose/Sodium Chloride 1,000 mls @ 42 mls/hr 01/17/17 11:45 01/22/17 14:30 D5-1/2ns - IV 42 mls/hr ASDIR DAVID Administration Midazolam HCl 100 mg/ Sodium 100 mls @ 2 mls/hr 01/21/17 18:15 01/22/17 21:57 Chloride IVPB 2 mls/hr TITR DAVID Administration Protocol 2 MG/HR Metoprolol Tartrate 5 mg 01/11/17 15:20 01/23/17 02:49 Lopressor Injection - IVPB 5 mg Q8H-IV DAVID Administration ASSESSMENT/PLAN: Patient is 81 year old female with a history of diverticulosis presents to the ED with perforated diverticulitis now post op day 5 s/p sigmoid resection with colostomy. # Acute hypoxic respiratory failure * Intubated to protect the airways. Off sedation, still drowsy. * FIO2 55 % # JG * Recently had CT abdomen with IV contrast. * Creatinine increased from 1.1-->1.6--->1.6....>2 . * Jennings in place, monitor Urinary output- 1085mls on January 22. * Kidney USG showed atrophic right kidney with multiple cyst, left kidney normal morphology, No evidence of hydronephrosis or acute pathology. * Not on any nephrotoxic drugs * Possibly would benefit from fluids but cannot give a lot of fluids due to CHF * 60 lasix IV * D/C Perced and start Propofol * Urine studies # Hypotensive now improved, MAP is 80 * Central line to be changed 12/20/16 * Might get fluids overloaded if more fluids are given. # Sepsis likely secondary to perforated diverticulitis s/p sigmoid resection with colostomy day 8 with an abdominal abscess s/p IR guided drainage * Improving Leukocytosis. * IR guided drainange done day 4, abscess grew Lactose fermenting gm negative bacilli, Strep sp * Continue IV Meropenam Day 9 * Blood culture/Urine culture negative. # NSTEMI after surgery * On Heparin Drip * Troponin trending down # Acute Kidney injury likely ATN * Creatinine 1.1---> 1.6---> 1.8....>2 today * Continue hydration * Avoid nephrotoxic drugs # Atrial fibrillation-rate controlled * On Heparin Drip * Rate control with metoprolol 5mg IV q8h # FEN: * D5-1/2 NS @ 42mls/hr * Monitor Electrolytes to be repeated tomorrow * Started enteral feeds 1.5 Jevity @ 10-15 cc/hr. # Prophylaxis * DVT proph: On Heparin drip * GI Proph: IV Famotidine 20mg BID # Code Status: * Full Code # Dispo: * Admitted in ICU. Continue ICU care Prognosis: * poor. Illness, Investigation and Plan of care explained to the family members yesterday. They verbalized understanding. Case seen and discussed with Dr. Anglin. Visit type - Emergency Visit Emergency Visit: Yes ED Registration Date: 01/09/17 Care time: The patient presented to the Emergency Department on the above date and was hospitalized for further evaluation of their emergent condition. - New Patient This patient is new to me today: Yes Date on this admission: 02/21/17 - Critical Care Critical Care patient: No - Discharge Referral Referred to [facility] Med P.C.: No
--- NOTE | 2017-01-23 09:33 | PN ---
Progress Note, Physician Chief Complaint: On respirator History of Present Illness: S/P colostomy for perforated colon Abscess drained - Current Medication List Current Medications: Active Medications Acetaminophen (Ofirmev Injection -) 1,000 mg IVPB Q6H PRN PRN Reason: FEVER Last Admin: 01/22/17 21:58 Dose: 1,000 mg Albuterol/Ipratropium (Duoneb -) 1 amp NEB QIDR DAVID Last Admin: 01/23/17 06:19 Dose: 1 amp Chlorhexidine Gluconate (Hibiclens For Decolonization -) 1 applic TP HS [facility] Last Admin: 01/22/17 21:57 Dose: 1 applic Heparin Sodium (Porcine) (Heparin -) 1,000 unit IVPUSH PRN PRN PRN Reason: Heparin Last Admin: 01/17/17 23:46 Dose: 1,000 unit Heparin Sodium (Porcine) (Heparin -) 5,000 unit IVPUSH PRN PRN PRN Reason: Heparin Last Admin: 01/17/17 07:41 Dose: 5,000 unit Famotidine/Sodium Chloride (Pepcid 20 Mg Premixed Ivpb -) 50 mls @ 100 mls/hr IVPB BID [facility] Last Admin: 01/22/17 21:58 Dose: 100 mls/hr Fluconazole (Diflucan 200 Mg/D5w Premixed Ivpb -) 100 mls @ 100 mls/hr IVPB DAILY [facility] Last Admin: 01/22/17 10:05 Dose: 100 mls/hr Heparin Sodium/Dextrose (Heparin Infusion -) 500 mls @ 20 mls/hr IVPB TITR DAVID ; 1,000 UNITS/HR PRN Reason: Protocol Last Titration: 01/23/17 07:50 Dose: 900 units/hr Meropenem 1 gm/ Dextrose 100 mls @ 100 mls/hr IVPB BID@0500,1700 DAVID PRN Reason: Protocol Last Admin: 01/23/17 04:26 Dose: 100 mls/hr Dextrose/Sodium Chloride (D5-1/2ns -) 1,000 mls @ 42 mls/hr IV ASDIR [facility] Last Admin: 01/22/17 14:30 Dose: 42 mls/hr Midazolam HCl 100 mg/ Sodium (Chloride) 100 mls @ 2 mls/hr IVPB TITR DAVID; 2 MG/ HR PRN Reason: Protocol Last Admin: 01/22/17 21:57 Dose: 2 mls/hr Metoprolol Tartrate (Lopressor Injection -) 5 mg IVPB Q8H-IV DAVID Last Admin: 01/23/17 02:49 Dose: 5 mg - Objective Vital Signs: Vital Signs Temperature 98.2 F 01/23/17 06:00 Pulse Rate 78 01/23/17 06:00 Respiratory Rate 23 01/23/17 09:23 Blood Pressure 128/66 01/23/17 06:00 O2 Sat by Pulse Oximetry (%) 99 01/22/17 21:00 Constitutional: Yes: Mild Distress Eyes: Yes: WNL HENT: Yes: WNL Neck: Yes: WNL Cardiovascular: Yes: Pulse Irregular Respiratory: Yes: Mechanically Ventilated Gastrointestinal: Yes: Normal Bowel Sounds ...Rectal Exam: Yes: Deferred Genitourinary: Yes: Jennings Present Neurological: Yes: Lethargy Labs: CBC, BMP 01/23/17 05:30 01/23/17 05:30 INR, PTT INR 1.41 (0.82-1.09) H 01/17/17 05:30 Assessment/Plan Case discussed with resident,need to wean
[2017-01-23] MEDS: FAMOTIDINE 20 MG/50 ML IVPB 50 ML IVPB SCH ×2 (09:42→21:48)
[2017-01-23] MEDS: FLUCONAZOLE 200 MG/D5W 100 ML IVPB SCH (09:45)
[2017-01-23 10:27] VITALS: BMI 39.9
--- NOTE | 2017-01-23 10:28 | CON.NEP ---
Consult Consult Specialty:: Nephrology (Jelani/Galindo) Referred by:: Dr. Sawyre Reason for Consultation:: JG - History of Present Illness Chief Complaint: Abd Pain History of Present Illness: This is a 81 year old woman with PMhx of CKD? (Atrophic Kidney seen on US which is a chronic finding), Diverticulosis, DVT/PE on Warfarin, Hypertension who presented with Abd pain and found to have perforated bowel with diverticulitis s /p bowel resection with colostomy with JG with Cr of 2. Cr was 2.2 on presentation and improved to 1.1 but then up trended to 2. + IV contrast exposure on 01/16/2017. Pt was on IV Vanco and Meropenum. No NSAID exposure Noted. - History Source History Provided By: Medical Record Limitations to Obtaining History: Clinical Condition - Past Medical History Cardio/Vascular: Yes: CHF, HTN Gastrointestinal: Yes: Diverticulitis, Diverticulosis Renal/: Yes: Renal Inusuff - Alcohol/Substance Use Hx Alcohol Use: No - Smoking History Smoking history: Former smoker Have you smoked in the past 12 months: No Home Medications - Allergies Allergies/Adverse Reactions: Allergies Allergy/AdvReac Type Severity Reaction Status Date / Time No Known Allergies Allergy Verified 01/09/17 12:33 - Home Medications Home Medications: Ambulatory Orders Atorvastatin Ca [Lipitor] 40 mg PO HS 01/09/17 Docusate Sodium [Colace -] 100 mg PO DAILY 01/09/17 Losartan Potassium [Cozaar] 50 mg PO DAILY 01/09/17 Metoprolol Succinate [Toprol Xl -] 50 mg PO DAILY 01/09/17 Oxycodone HCl/Acetaminophen [Percocet 5-325 mg Tablet] 1 tab PO Q6H 01/09/17 Risedronate Sodium [Actonel] 35 mg PO WEEKLY 01/09/17 Warfarin Sodium 3 mg PO HS 01/09/17 Family Disease History - Family Disease History Family History: Unable to Obtain Review of Systems Unable to obtain ROS, reason: pt intubated Nephrology Consult - Height Height: 5 ft 7 in - Weight Weight: 254 lb 10.142 oz - BMI Body Mass Index (BMI): 39.9 - Lab Results CBC,BMP: CBC, BMP 01/23/17 05:30 01/23/17 05:30 Anion Gap: Anion Gap Anion Gap 9 (8-16) 01/23/17 05:30 - Imaging Chest X-ray: Report Reviewed Ultrasound: Report Reviewed - Physical Examination Vital Signs: Vital Signs Temperature 98.2 F 01/23/17 06:00 Pulse Rate 86 01/23/17 09:46 Respiratory Rate 23 01/23/17 09:23 Blood Pressure 120/66 01/23/17 09:46 O2 Sat by Pulse Oximetry (%) 99 01/22/17 21:00 Constitutional: Yes: Well Nourished, No Distress, Calm, Poor Hygeine HENT: Yes: Atraumatic, Normocephalic Neck: Yes: Supple Cardiovascular: Yes: Regular Rate and Rhythm, S1, S2. No: JVD, Murmur, Rub Respiratory: Yes: Regular, Diminished (anterior exam) Gastrointestinal: Yes: Normal Bowel Sounds, Soft, Abdomen, Obese, Other (ABD dressing in place, Colostomy in place with dark stools) Renal/: Yes: Jennings Present. No: Anuria, Bladder Distention Extremities: No: Cold, Cool, Cyanosis Edema: Yes Edema: LLE: Trace, RLE: Trace Problem List - Problems (1) Perforated bowel Code(s): K63.1 - PERFORATION OF INTESTINE (NONTRAUMATIC) (2) Sepsis Code(s): A41.9 - SEPSIS, UNSPECIFIED ORGANISM Qualifiers: Sepsis type: sepsis due to unspecified organism Qualified Code(s): A41.9 - Sepsis, unspecified organism (3) Acute renal failure (ARF) Code(s): N17.9 - ACUTE KIDNEY FAILURE, UNSPECIFIED (4) CKD (chronic kidney disease) Code(s): N18.9 - CHRONIC KIDNEY DISEASE, UNSPECIFIED (5) Hypertension Code(s): I10 - ESSENTIAL (PRIMARY) HYPERTENSION (6) Diverticulosis Code(s): K57.90 - DVRTCLOS OF INTEST, PART UNSP, W/O PERF OR ABSCESS W/O BLEED Assessment/Plan 81 year old woman with PMhx of CKD? (Atrophic Kidney seen on US which is a chronic finding), Diverticulosis, DVT/PE on Warfarin, Hypertension who presented with Abd pain and found to have perforated bowel with diverticulitis s /p bowel resection with colostomy with JG with Cr of 2. #Non-oliguric acute kidney injury in likely underlying CKD Etiology likely ATN given rising Cr with stable BUN (ATN likely secondary to hemodynamic changes vs. BALJIT (less likley given timing of Cr rise) Check FeNa, FeUrea, UPCR,Check Vanco levels, Urine Eios Renal US results noted (atrophic kidney -> chronic finding) Baseline renal function information needs to be obtained from PMD office Once urine studies are resulted can attempt diuresis as needed to keep pt evolemic Dose all meds for eGFR < 153 No acute indication for dialysis at this time #Sepsis/Perforated Abd viscus/Abcess ICU care Abx as per ID Keep MAP > 65 CVP goal 10-12 #Resp Failure with volume overload/CHF Echo findings noted Vent support plan for diuresis with IV Lasix Thank you Will follow Jair Medley DO
--- NOTE | 2017-01-23 10:57 | PN ---
Progress Note (short form) - Note Progress Note: S: 81 year female with ruptured diverticulitis S/P colostomy, abdominal abscess , severe LV dysfuntion, respiratory failure,intubated and sedated, H/O hypertension. Patient is post operatively, had persistent tachycardia and heart rate is controlled on IV betablocker. Hemodynamics are stable and there are rare ventricular premature beats. Patient is sedated and remains intubated. Significant purulent drainage from the abdominal drain. Active Medications Generic Name Dose Route Start Last Admin Trade Name Freq PRN Reason Stop Dose Admin Acetaminophen 1,000 mg 01/11/17 18:03 01/22/17 21:58 Ofirmev Injection - IVPB 1,000 mg Q6H PRN Administration FEVER Albuterol/Ipratropium 1 amp 01/11/17 00:00 01/23/17 06:19 Duoneb - NEB 1 amp QIDR DAVID Administration Chlorhexidine Gluconate 1 applic 01/20/17 22:00 01/22/17 21:57 Hibiclens For Decolonization - TP 1 applic HS DAVID Administration Furosemide 40 mg 01/23/17 12:00 Lasix Injection - IVPB 01/23/17 12:01 ONCE ONE Heparin Sodium (Porcine) 1,000 unit 01/12/17 16:52 01/17/17 23:46 Heparin - IVPUSH 1,000 unit PRN PRN Administration Heparin Heparin Sodium (Porcine) 5,000 unit 01/12/17 16:52 01/17/17 07:41 Heparin - IVPUSH 5,000 unit PRN PRN Administration Heparin Famotidine/Sodium Chloride 50 mls @ 100 mls/hr 01/10/17 10:00 01/23/17 09:42 Pepcid 20 Mg Premixed Ivpb - IVPB 100 mls/hr BID DAVID Administration Fluconazole 100 mls @ 100 mls/hr 01/11/17 13:00 01/23/17 09:45 Diflucan 200 Mg/D5w Premixed Ivpb - IVPB 100 mls/hr DAILY DAVID Administration Heparin Sodium/Dextrose 500 mls @ 20 mls/hr 01/12/17 17:00 01/23/17 07:50 Heparin Infusion - IVPB 900 units/hr TITR DAVID Titration Protocol 1,000 UNITS/HR Meropenem 1 gm/ Dextrose 100 mls @ 100 mls/hr 01/15/17 17:00 01/23/17 04:26 IVPB 100 mls/hr BID@0500,1700 DAVID Administration Protocol Dextrose/Sodium Chloride 1,000 mls @ 42 mls/hr 01/17/17 11:45 01/22/17 14:30 D5-1/2ns - IV 42 mls/hr ASDIR DAVID Administration Midazolam HCl 100 mg/ Sodium 100 mls @ 2 mls/hr 01/21/17 18:15 01/22/17 21:57 Chloride IVPB 2 mls/hr TITR DAVID Administration Protocol 2 MG/HR Metoprolol Tartrate 5 mg 01/11/17 15:20 01/23/17 09:46 Lopressor Injection - IVPB 5 mg Q8H-IV DAVID Administration O: 81 year old female was in no acute distress, no pallor, cyanosis, clubbing, or jaundice. Last Vital Signs Temp Pulse Resp BP Pulse Ox 98.2 F 86 23 120/66 99 01/23/17 06:00 01/23/17 09:46 01/23/17 09:23 01/23/17 09:46 01/22/17 21:00 Neck: Supple, no JVD, negative HJR, carotids were equal and upstrokes were normal, no thyromegaly appreciated. Heart: PMI was in the 5th intercostal space, no heaves or thrills, S1 and S2 were normal. No murmurs or gallops were appreciated. Lungs: Clear on auscultation bilaterally. Abdomen: Soft, nontender, no hepatosplenomegaly appreciated, and no palpable masses were felt. Extremities: No calf tenderness. 2+ ankle edema bilaterally. CBC, BMP 01/23/17 05:30 01/23/17 05:30 Laboratory Results - last 24 hr 01/22/17 01/22/17 01/23/17 15:50 23:45 05:30 WBC 15.8 H RBC 2.64 L Hgb 8.5 L D Hct 26.4 L MCV 100.2 H MCH 32.3 MCHC 32.2 RDW 15.3 Plt Count 372 MPV 8.9 PTT (Actin FS) 121.0 H 58.0 H D Puncture Site ABG pH ABG pCO2 at Pt Temp ABG pO2 at Pt Temp ABG HCO3 ABG O2 Sat (Measured) ABG O2 Content ABG Base Excess Jose A Test O2 Delivery Device Oxygen Flow Rate Vent Mode Vent Rate Mechanical Rate PEEP Pressure Support Vent Sodium Potassium Chloride Carbon Dioxide Anion Gap BUN Creatinine Creat Clearance w eGFR Random Glucose Calcium Phosphorus Magnesium Total Bilirubin AST ALT Alkaline Phosphatase Total Protein Albumin 01/23/17 01/23/17 01/23/17 05:30 05:30 07:38 WBC RBC Hgb Hct MCV MCH MCHC RDW Plt Count MPV PTT (Actin FS) 76.6 H D Puncture Site Left radial ABG pH 7.32 L ABG pCO2 at Pt Temp 43.8 ABG pO2 at Pt Temp 113.0 H ABG HCO3 21.7 L ABG O2 Sat (Measured) 98.3 ABG O2 Content 15.7 ABG Base Excess -3.8 L Jose A Test Positive O2 Delivery Device Vent Oxygen Flow Rate 70% Vent Mode A/c Vent Rate 16 Mechanical Rate Yes PEEP 5.0 Pressure Support Vent 450 Sodium 140 Potassium 3.6 Chloride 106 Carbon Dioxide 25 Anion Gap 9 BUN 36 H Creatinine 2.0 H Creat Clearance w eGFR 23.85 Random Glucose 109 H Calcium 8.3 L Phosphorus 4.2 Magnesium 2.1 Total Bilirubin 0.5 AST 47 H ALT 18 Alkaline Phosphatase 82 Total Protein 4.3 L Albumin 1.5 L Impression: 1. H/o Hypertension. 2. Severe LV dysfunction. 3. Ruptured diverticulits. 4. Colostomy. 5. Abdominal abscess. 6. Abdominal fluid collection secondary to abscess. 7. CLBBB. 8. Ventricular premature beats. 9. Respiratory failure. 10.Abdominal fluid collection. Recommendations: 1. As outlined by human factors ergonomist. 2. Taper off IV lopressor as necessary. Prognosis: Critical Attestation: Documentation prepared by Adam Velazquez, acting as medical imaging technician for Jad Henderson MD.
[2017-01-23] MEDS ORDERED: PROPOFOL 200 MG/20 ML VIAL IVPUSH ONE (11:45)
[2017-01-23] MEDS ORDERED: FUROSEMIDE 40 MG/4 ML INJECTABLE VIAL IVPB ONE (12:00)
[2017-01-23] MEDS: DEXTROSE 5%-0.45% SALINE 1,000 ML IV SCH (12:03)
--- NOTE | 2017-01-23 12:38 | PN ---
Teaching Attending Note Name of Resident: Duane Oswald ATTENDING PHYSICIAN STATEMENT I saw and evaluated the patient. I reviewed the resident's note and discussed the case with the resident. I agree with the resident's findings and plan as documented. SUBJECTIVE: Patient seen and examined at bedside. Remains intubated and sedated. AC Mode of vent, 70% FiO2. No pressors. (+) Dark liquid stools noted in ostomy, seems to be tolerating feeds. CXR : No gross change in bilateral pleural effusions Right > Left Intake & Output 01/20/17 01/21/17 01/22/17 01/23/17 23:59 23:59 23:59 23:59 Intake Total 3081 2311 3102 956 Output Total 905 1085 795 430 Balance 2176 1226 2307 526 Weight 240 lb 4.862 oz 253 lb 1.451 oz 116 lb 5 oz 254 lb 10.142 oz Last Vital Signs Temp Pulse Resp BP Pulse Ox 98.6 F 78 22 120/66 95 01/23/17 08:00 01/23/17 10:00 01/23/17 11:53 01/23/17 10:00 01/23/17 09:00 Active Medications Acetaminophen (Ofirmev Injection -) 1,000 mg IVPB Q6H PRN PRN Reason: FEVER Last Admin: 01/22/17 21:58 Dose: 1,000 mg Albuterol/Ipratropium (Duoneb -) 1 amp NEB QIDR [facility] Last Admin: 01/23/17 11:56 Dose: 1 amp Chlorhexidine Gluconate (Hibiclens For Decolonization -) 1 applic TP HS [facility] Last Admin: 01/22/17 21:57 Dose: 1 applic Heparin Sodium (Porcine) (Heparin -) 1,000 unit IVPUSH PRN PRN PRN Reason: Heparin Last Admin: 01/17/17 23:46 Dose: 1,000 unit Heparin Sodium (Porcine) (Heparin -) 5,000 unit IVPUSH PRN PRN PRN Reason: Heparin Last Admin: 01/17/17 07:41 Dose: 5,000 unit Famotidine/Sodium Chloride (Pepcid 20 Mg Premixed Ivpb -) 50 mls @ 100 mls/hr IVPB BID DAVID Last Admin: 01/23/17 09:42 Dose: 100 mls/hr Fluconazole (Diflucan 200 Mg/D5w Premixed Ivpb -) 100 mls @ 100 mls/hr IVPB DAILY [facility]ID Last Admin: 01/23/17 09:45 Dose: 100 mls/hr Heparin Sodium/Dextrose (Heparin Infusion -) 500 mls @ 20 mls/hr IVPB TITR DAVID ; 1,000 UNITS/HR PRN Reason: Protocol Last Titration: 01/23/17 07:50 Dose: 900 units/hr Meropenem 1 gm/ Dextrose 100 mls @ 100 mls/hr IVPB BID@0500,1700 DAVID PRN Reason: Protocol Last Admin: 01/23/17 04:26 Dose: 100 mls/hr Dextrose/Sodium Chloride (D5-1/2ns -) 1,000 mls @ 42 mls/hr IV ASDIR DAVID Last Admin: 01/23/17 12:03 Dose: 42 mls/hr Metoprolol Tartrate (Lopressor Injection -) 5 mg IVPB Q8H-IV DAVID Last Admin: 01/23/17 09:46 Dose: 5 mg Constitutional: Yes: Intubated and sedated Eyes: Yes: (-) Pallor (-) Icterus HENT: Yes: Normocephalic Neck: Yes: Supple, Trachea Midline Cardiovascular: Yes: Tachycardia, Pulse Irregular, S1, S2 Respiratory: Yes: Bilateral scattered Rhonchi and crackles Gastrointestinal: Yes: Soft, (+) BS, brownish discharge from drain, incision C/D /I, appropriately tender, ostomy pink with some output Genitourinary: Yes: Jennings Present Extremities: Yes: WNL Edema: No Integumentary: Yes: Tenting Wound/Incision: Yes: Clean/Dry Neurological: Yes: Alert, non-focal Psychiatric: Yes: Cooperative Labs: Laboratory Results - last 24 hr 01/22/17 01/22/17 01/23/17 15:50 23:45 05:30 WBC 15.8 H RBC 2.64 L Hgb 8.5 L D Hct 26.4 L MCV 100.2 H MCH 32.3 MCHC 32.2 RDW 15.3 Plt Count 372 MPV 8.9 PTT (Actin FS) 121.0 H 58.0 H D Puncture Site ABG pH ABG pCO2 at Pt Temp ABG pO2 at Pt Temp ABG HCO3 ABG O2 Sat (Measured) ABG O2 Content ABG Base Excess Jose A Test O2 Delivery Device Oxygen Flow Rate Vent Mode Vent Rate Mechanical Rate PEEP Pressure Support Vent Sodium Potassium Chloride Carbon Dioxide Anion Gap BUN Creatinine Creat Clearance w eGFR Random Glucose Calcium Phosphorus Magnesium Total Bilirubin AST ALT Alkaline Phosphatase Total Protein Albumin U Random Total Protein Ur Random Sodium Ur Random Urea Nitrogn Urine Creatinine 01/23/17 01/23/17 01/23/17 05:30 05:30 07:38 WBC RBC Hgb Hct MCV MCH MCHC RDW Plt Count MPV PTT (Actin FS) 76.6 H D Puncture Site Left radial ABG pH 7.32 L ABG pCO2 at Pt Temp 43.8 ABG pO2 at Pt Temp 113.0 H ABG HCO3 21.7 L ABG O2 Sat (Measured) 98.3 ABG O2 Content 15.7 ABG Base Excess -3.8 L Jose A Test Positive O2 Delivery Device Vent Oxygen Flow Rate 70% Vent Mode A/c Vent Rate 16 Mechanical Rate Yes PEEP 5.0 Pressure Support Vent 450 Sodium 140 Potassium 3.6 Chloride 106 Carbon Dioxide 25 Anion Gap 9 BUN 36 H Creatinine 2.0 H Creat Clearance w eGFR 23.85 Random Glucose 109 H Calcium 8.3 L Phosphorus 4.2 Magnesium 2.1 Total Bilirubin 0.5 AST 47 H ALT 18 Alkaline Phosphatase 82 Total Protein 4.3 L Albumin 1.5 L U Random Total Protein Ur Random Sodium Ur Random Urea Nitrogn Urine Creatinine 01/23/17 01/23/17 01/23/17 11:00 11:00 11:00 WBC RBC Hgb Hct MCV MCH MCHC RDW Plt Count MPV PTT (Actin FS) Puncture Site ABG pH ABG pCO2 at Pt Temp ABG pO2 at Pt Temp ABG HCO3 ABG O2 Sat (Measured) ABG O2 Content ABG Base Excess Jose A Test O2 Delivery Device Oxygen Flow Rate Vent Mode Vent Rate Mechanical Rate PEEP Pressure Support Vent Sodium Potassium Chloride Carbon Dioxide Anion Gap BUN Creatinine Creat Clearance w eGFR Random Glucose Calcium Phosphorus Magnesium Total Bilirubin AST ALT Alkaline Phosphatase Total Protein Albumin U Random Total Protein 40 H Ur Random Sodium 10 Ur Random Urea Nitrogn Urine Creatinine 37.7 01/23/17 11:00 WBC RBC Hgb Hct MCV MCH MCHC RDW Plt Count MPV PTT (Actin FS) Puncture Site ABG pH ABG pCO2 at Pt Temp ABG pO2 at Pt Temp ABG HCO3 ABG O2 Sat (Measured) ABG O2 Content ABG Base Excess Jose A Test O2 Delivery Device Oxygen Flow Rate Vent Mode Vent Rate Mechanical Rate PEEP Pressure Support Vent Sodium Potassium Chloride Carbon Dioxide Anion Gap BUN Creatinine Creat Clearance w eGFR Random Glucose Calcium Phosphorus Magnesium Total Bilirubin AST ALT Alkaline Phosphatase Total Protein Albumin U Random Total Protein Ur Random Sodium Ur Random Urea Nitrogn 243 Urine Creatinine Assessment/Plan Intra-abdominal collection Perforated diverticulitis S/P Sigmoid resection with colostomy. 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 component of BALJIT -> Time period too long) Wean FiO2 as tolerated Monitor drainage Trial of Lasix Renal evaluation Strict I&O Pain control Feeds as tolerated IV Heparin SBTs as tolerated Dr Anglin Critical Care Time Total Critical Care Time: 35 Critical Care Statement: The care of this patient involved high complexity decision making to prevent further life threatening deterioration of the patient 's condition and/or to evaluate & treat vital organ system(s) failure or risk of failure.
[2017-01-23 12:53] LABS: URINE APPEARANCE SLCLOUDY; URINE BILIRUBIN NEGATIVE (NEGATIVE); URINE BLOOD 1+ (NEGATIVE); URINE COLOR LTYELLOW; URINE GLUCOSE (UA) NEGATIVE (NEGATIVE); URINE KETONE NEGATIVE (NEGATIVE); URINE LEUK ESTERASE NEGATIVE (NEGATIVE); URINE NITRITE NEGATIVE (NEGATIVE); URINE PROTEIN NEGATIVE (NEGATIVE); URINE UROBILINOGEN NEGATIVE mg/dL (0.2-1.0)
[2017-01-23] MEDS ORDERED: PROPOFOL 100 ML IVPB SCH (13:30)
[2017-01-23] MEDS ORDERED: FUROSEMIDE 40 MG/4 ML INJECTABLE VIAL IVPUSH ONE (13:53)
[2017-01-23] MEDS: ACETAMINOPHEN 1000 MG/100 ML VIAL (NON FORMULARY) IVPB PRN (14:45)
[2017-01-23 14:52] LABS: URINE BACTERIA RARE /hpf (NONE SEEN); URINE MUCUS RARE; URINE RBC 2 /hpf (0-3); URINE WBC 3 /hpf (3-5)
--- NOTE | 2017-01-23 16:53 | PN ---
Progress Note, Physician History of Present Illness: continues to be sedated and intubated wbc has decreased patient also afebrile family in room had detailed discussion with them cr has increased - Current Medication List Current Medications: Active Medications Acetaminophen (Ofirmev Injection -) 1,000 mg IVPB Q6H PRN PRN Reason: FEVER Last Admin: 01/23/17 14:45 Dose: 1,000 mg Albuterol/Ipratropium (Duoneb -) 1 amp NEB QIDR DAVID Last Admin: 01/23/17 11:56 Dose: 1 amp Chlorhexidine Gluconate (Hibiclens For Decolonization -) 1 applic TP HS DAVID Last Admin: 01/22/17 21:57 Dose: 1 applic Heparin Sodium (Porcine) (Heparin -) 1,000 unit IVPUSH PRN PRN PRN Reason: Heparin Last Admin: 01/17/17 23:46 Dose: 1,000 unit Heparin Sodium (Porcine) (Heparin -) 5,000 unit IVPUSH PRN PRN PRN Reason: Heparin Last Admin: 01/17/17 07:41 Dose: 5,000 unit Famotidine/Sodium Chloride (Pepcid 20 Mg Premixed Ivpb -) 50 mls @ 100 mls/hr IVPB BID DAVID Last Admin: 01/23/17 09:42 Dose: 100 mls/hr Fluconazole (Diflucan 200 Mg/D5w Premixed Ivpb -) 100 mls @ 100 mls/hr IVPB DAILY [facility] Last Admin: 01/23/17 09:45 Dose: 100 mls/hr Heparin Sodium/Dextrose (Heparin Infusion -) 500 mls @ 20 mls/hr IVPB TITR DAVID ; 1,000 UNITS/HR PRN Reason: Protocol Last Titration: 01/23/17 07:50 Dose: 900 units/hr Meropenem 1 gm/ Dextrose 100 mls @ 100 mls/hr IVPB BID@0500,1700 DAVID PRN Reason: Protocol Last Admin: 01/23/17 04:26 Dose: 100 mls/hr Metoprolol Tartrate (Lopressor Injection -) 5 mg IVPB Q8H-IV DAVID Last Admin: 01/23/17 09:46 Dose: 5 mg - Objective Vital Signs: Vital Signs Temperature 98.6 F 01/23/17 08:00 Pulse Rate 78 01/23/17 10:00 Respiratory Rate 22 01/23/17 14:20 Blood Pressure 120/66 01/23/17 10:00 O2 Sat by Pulse Oximetry (%) 95 01/23/17 09:00 Constitutional: Yes: Other Cardiovascular: Yes: Pulse Irregular, S1 Respiratory: Yes: Intubated, Mechanically Ventilated Gastrointestinal: Yes: Other (absent bowel sounds wound dressing present draiange tube still draining pus) Genitourinary: Yes: Jennings Present Musculoskeletal: Yes: Other Extremities: Yes: Other Edema: LLE: 1+, RLE: 1+ Wound/Incision: Yes: Dressing Dry and Intact Neurological: Yes: Other Psychiatric: Yes: Other Labs: CBC, BMP 01/23/17 05:30 01/23/17 05:30 INR, PTT INR 1.41 (0.82-1.09) H 01/17/17 05:30 Assessment/Plan 81 y/o old with multiple medical problems with perforated bowel post op Perforated bowel Peritonitis Sepsis s/p ex-lap with sigmoid resection, colostomy Resolving JG Lactic acidosis AF h/o DVT/PE plan continue abx cx report noted patients wbc has decreased gladys pus cr has increased if patients cr increases jovanny re adjust the abx cc tim40 min
--- NOTE | 2017-01-23 17:02 | PN ---
Progress Note, Physician History of Present Illness: continues to be sedated and intubated family in room still with pus drainage wbc trending down - Current Medication List Current Medications: Active Medications Acetaminophen (Ofirmev Injection -) 1,000 mg IVPB Q6H PRN PRN Reason: FEVER Last Admin: 01/23/17 14:45 Dose: 1,000 mg Albuterol/Ipratropium (Duoneb -) 1 amp NEB QIDR DAVID Last Admin: 01/23/17 11:56 Dose: 1 amp Chlorhexidine Gluconate (Hibiclens For Decolonization -) 1 applic TP HS DAVID Last Admin: 01/22/17 21:57 Dose: 1 applic Heparin Sodium (Porcine) (Heparin -) 1,000 unit IVPUSH PRN PRN PRN Reason: Heparin Last Admin: 01/17/17 23:46 Dose: 1,000 unit Heparin Sodium (Porcine) (Heparin -) 5,000 unit IVPUSH PRN PRN PRN Reason: Heparin Last Admin: 01/17/17 07:41 Dose: 5,000 unit Famotidine/Sodium Chloride (Pepcid 20 Mg Premixed Ivpb -) 50 mls @ 100 mls/hr IVPB BID [facility] Last Admin: 01/23/17 09:42 Dose: 100 mls/hr Fluconazole (Diflucan 200 Mg/D5w Premixed Ivpb -) 100 mls @ 100 mls/hr IVPB DAILY [facility] Last Admin: 01/23/17 09:45 Dose: 100 mls/hr Heparin Sodium/Dextrose (Heparin Infusion -) 500 mls @ 20 mls/hr IVPB TITR DAVID ; 1,000 UNITS/HR PRN Reason: Protocol Last Titration: 01/23/17 07:50 Dose: 900 units/hr Meropenem 1 gm/ Dextrose 100 mls @ 100 mls/hr IVPB BID@0500,1700 DAVID PRN Reason: Protocol Last Admin: 01/23/17 04:26 Dose: 100 mls/hr Metoprolol Tartrate (Lopressor Injection -) 5 mg IVPB Q8H-IV DAVID Last Admin: 01/23/17 09:46 Dose: 5 mg - Objective Vital Signs: Vital Signs Temperature 98.6 F 01/23/17 08:00 Pulse Rate 78 01/23/17 10:00 Respiratory Rate 22 01/23/17 14:20 Blood Pressure 120/66 01/23/17 10:00 O2 Sat by Pulse Oximetry (%) 95 01/23/17 09:00 Constitutional: Yes: Other Cardiovascular: Yes: Pulse Irregular, S1, S2 Respiratory: Yes: Intubated, Mechanically Ventilated Gastrointestinal: Yes: Other (absent bowel sounds draiange tube in place) Musculoskeletal: Yes: Other Extremities: Yes: Other Edema: LLE: 1+, RLE: 1+ Labs: CBC, BMP 01/23/17 05:30 01/23/17 05:30 INR, PTT INR 1.41 (0.82-1.09) H 01/17/17 05:30 Assessment/Plan 81 y/o old with multiple medical problems with perforated bowel post op Perforated bowel Peritonitis Sepsis s/p ex-lap with sigmoid resection, colostomy Resolving JG Lactic acidosis AF h/o DVT/PE plan continue abx cx report noted patients wbc has decreased gladys pus cr has increased will see the trend abx readjusted cc tim40 min
[2017-01-23] MEDS ORDERED: PT OWN MED DRAWER 7, Y5N ONE (17:47)
[2017-01-23] MEDS: HEPARIN INFUSION - 500 ML IVPB SCH (17:49)
[2017-01-23] MEDS ORDERED: SODIUM CHLORIDE 500 ML IV STA (18:08)
[2017-01-23] MEDS: CHLORHEXIDINE GLUCONATE 4% CLEANSER FOR DECOLONIZATION TP SCH (21:48)
[2017-01-24] MEDS: METOPROLOL TARTRATE 5 MG/5 ML VIAL IVPB SCH ×3 (02:51→18:34)
[2017-01-24] MEDS: MEROPENEM 1 GM in DEXTROSE 5%-WATER - 100 ML IVPB SCH ×2 (05:19→18:00)
[2017-01-24] MEDS: ALBUTEROL SO4 2.5/IPRATROPIUM 0.5 INH SOL 3 ML VIAL.NEB. NEB SCH ×4 (06:35→23:30)
[2017-01-24] MEDS ORDERED: PT OWN MED DRAWER 7, Y5N ONE (08:58)
[2017-01-24] MEDS: FLUCONAZOLE 200 MG/D5W 100 ML IVPB SCH (09:04)
[2017-01-24] MEDS: FAMOTIDINE 20 MG/50 ML IVPB 50 ML IVPB SCH ×2 (09:05→21:55)
--- NOTE | 2017-01-24 09:42 | PN ---
Progress Note (short form) - Note Progress Note: Patient seen and examined at bedside. Remains intubated. Currently off sedation, poorly responsive. AC Mode of vent, 55% FiO2. No pressors. (+) Dark liquid stools noted in ostomy, tolerating feeds. CXR : Pending Intake & Output 01/21/17 01/22/17 01/23/17 01/24/17 23:59 23:59 23:59 23:59 Intake Total 2311 3102 3262 695 Output Total 7121 227 9688 430 Balance 1226 2307 1707 265 Weight 253 lb 1.451 oz 116 lb 5 oz 254 lb 10.142 oz 256 lb 2.834 oz Last Vital Signs Temp Pulse Resp BP Pulse Ox 99.4 F 92 H 24 124/64 99 01/24/17 05:25 01/24/17 09:06 01/24/17 06:36 01/24/17 09:06 01/23/17 21:00 Active Medications Acetaminophen (Ofirmev Injection -) 1,000 mg IVPB Q6H PRN PRN Reason: FEVER Last Admin: 01/23/17 14:45 Dose: 1,000 mg Albuterol/Ipratropium (Duoneb -) 1 amp NEB QIDR [facility] Last Admin: 01/24/17 06:35 Dose: 1 amp Chlorhexidine Gluconate (Hibiclens For Decolonization -) 1 applic TP HS [facility] Last Admin: 01/23/17 21:48 Dose: 1 applic Heparin Sodium (Porcine) (Heparin -) 1,000 unit IVPUSH PRN PRN PRN Reason: Heparin Last Admin: 01/17/17 23:46 Dose: 1,000 unit Heparin Sodium (Porcine) (Heparin -) 5,000 unit IVPUSH PRN PRN PRN Reason: Heparin Last Admin: 01/17/17 07:41 Dose: 5,000 unit Famotidine/Sodium Chloride (Pepcid 20 Mg Premixed Ivpb -) 50 mls @ 100 mls/hr IVPB BID [facility] Last Admin: 01/24/17 09:05 Dose: 100 mls/hr Fluconazole (Diflucan 200 Mg/D5w Premixed Ivpb -) 100 mls @ 100 mls/hr IVPB DAILY [facility] Last Admin: 01/24/17 09:04 Dose: 100 mls/hr Heparin Sodium/Dextrose (Heparin Infusion -) 500 mls @ 20 mls/hr IVPB TITR DAVID ; 1,000 UNITS/HR PRN Reason: Protocol Last Admin: 01/23/17 17:49 Dose: 18 mls/hr Meropenem 1 gm/ Dextrose 100 mls @ 100 mls/hr IVPB BID@0500,1700 DAVID PRN Reason: Protocol Last Admin: 01/24/17 05:19 Dose: 100 mls/hr Metoprolol Tartrate (Lopressor Injection -) 5 mg IVPB Q8H-IV DAVID Last Admin: 01/24/17 09:06 Dose: 5 mg Constitutional: Yes: Intubated and sedated Eyes: Yes: (-) Pallor (-) Icterus HENT: Yes: Normocephalic Neck: Yes: Supple, Trachea Midline Cardiovascular: Yes: Tachycardia, Pulse Irregular, S1, S2 Respiratory: Yes: Bilateral scattered Rhonchi and crackles Gastrointestinal: Yes: Soft, (+) BS, brownish discharge from drain, incision C/D /I, appropriately tender, ostomy pink with some output Genitourinary: Yes: Jennings Present Extremities: Yes: WNL Edema: No Integumentary: Yes: Tenting Wound/Incision: Yes: Clean/Dry Neurological: Yes: Alert, non-focal Psychiatric: Yes: Cooperative Labs: Laboratory Results - last 24 hr 01/23/17 01/23/17 01/23/17 11:00 11:00 11:00 PTT (Actin FS) Urine Color Urine Appearance Urine pH Ur Specific [place] Urine Protein Urine Glucose (UA) Urine Ketones Urine Blood Urine Nitrite Urine Bilirubin Urine Urobilinogen Ur Leukocyte Esterase Urine RBC Urine WBC Ur Epithelial Cells Urine Bacteria Urine Mucus U Random Total Protein 40 H Ur Random Sodium 10 Ur Random Urea Nitrogn Urine Creatinine 37.7 01/23/17 01/23/17 01/24/17 11:00 11:00 05:35 PTT (Actin FS) 50.1 H D Urine Color Ltyellow Urine Appearance Slcloudy Urine pH 6.0 Ur Specific [place] <= 1.005 Urine Protein Negative Urine Glucose (UA) Negative Urine Ketones Negative Urine Blood 1+ H Urine Nitrite Negative Urine Bilirubin Negative Urine Urobilinogen Negative Ur Leukocyte Esterase Negative Urine RBC 2 Urine WBC 3 Ur Epithelial Cells Rare Urine Bacteria Rare Urine Mucus Rare U Random Total Protein Ur Random Sodium Ur Random Urea Nitrogn 243 Urine Creatinine Assessment/Plan Intra-abdominal collection Perforated diverticulitis S/P Sigmoid resection with colostomy. 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 component of BALJIT -> Time period too long) Check labs Wean FiO2 as tolerated Monitor drainage Renal evaluation noted Strict I&O Hold sedation to assess mental status -> If sedation is needed -> low dose propofol Feeds as tolerated IV Heparin SBTs as tolerated Dr Anglin Critical Care Time Total Critical Care Time: 35 Critical Care Statement: The care of this patient involved high complexity decision making to prevent further life threatening deterioration of the patient 's condition and/or to evaluate & treat vital organ system(s) failure or risk of failure.
[2017-01-24 09:50] LABS: MCH 32.1 pg (25.7-33.7); MCHC 31.5 g/dl (32.0-36.0); MEAN CELL VOLUME 101.9 fl (80-96); MEAN PLT VOLUME 9.5 fl (7.5-11.1); PLATELET COUNT 340 K/MM3 (134-434); RDW 15.4 % (11.6-15.6); WHITE BLOOD COUNT 17.3 K/mm3 (4.0-10.0)
[2017-01-24 10:24] LABS: ALBUMIN 1.6 g/dl (3.4-5.0); ALK PHOS 106 U/L (45-117); ANION GAP 9 (8-16); BILIRUBIN,TOTAL 0.6 mg/dL (0.2-1.0); CALCIUM 8.5 mg/dL (8.5-10.1); CO2 24 mmol/L (21-32); CREATININE 2.1 mg/dL (0.55-1.02); GLUCOSE,RANDOM 113 mg/dL (74-106); SGOT/AST 34 U/L (15-37); SGPT/ALT 17 U/L (12-78); TOT PROT 4.7 g/dl (6.4-8.2)
[2017-01-24 10:36] LABS: PLATELET ESTIMATE ADEQUATE (NORMAL)
--- NOTE | 2017-01-24 10:48 | PN ---
Progress Note, Physician Chief Complaint: The patient seen in the ICU. Poorly responsive, Vent supported. maintains good urine output. This is a 81 year old woman with PMhx of CKD, Diverticulosis, DVT/PE on Warfarin , Hypertension who presented with Abd pain and found to have perforated bowel with diverticulitis, s/p bowel resection with colostomy. Purulent drainage from the JAMES drain. - Current Medication List Current Medications: Active Medications Acetaminophen (Ofirmev Injection -) 1,000 mg IVPB Q6H PRN PRN Reason: FEVER Last Admin: 01/23/17 14:45 Dose: 1,000 mg Albuterol/Ipratropium (Duoneb -) 1 amp NEB QIDR [facility] Last Admin: 01/24/17 06:35 Dose: 1 amp Chlorhexidine Gluconate (Hibiclens For Decolonization -) 1 applic TP HS [facility] Last Admin: 01/23/17 21:48 Dose: 1 applic Heparin Sodium (Porcine) (Heparin -) 1,000 unit IVPUSH PRN PRN PRN Reason: Heparin Last Admin: 01/17/17 23:46 Dose: 1,000 unit Heparin Sodium (Porcine) (Heparin -) 5,000 unit IVPUSH PRN PRN PRN Reason: Heparin Last Admin: 01/17/17 07:41 Dose: 5,000 unit Famotidine/Sodium Chloride (Pepcid 20 Mg Premixed Ivpb -) 50 mls @ 100 mls/hr IVPB BID [facility] Last Admin: 01/24/17 09:05 Dose: 100 mls/hr Fluconazole (Diflucan 200 Mg/D5w Premixed Ivpb -) 100 mls @ 100 mls/hr IVPB DAILY [facility] Last Admin: 01/24/17 09:04 Dose: 100 mls/hr Heparin Sodium/Dextrose (Heparin Infusion -) 500 mls @ 20 mls/hr IVPB TITR DAVID ; 1,000 UNITS/HR PRN Reason: Protocol Last Admin: 01/23/17 17:49 Dose: 18 mls/hr Meropenem 1 gm/ Dextrose 100 mls @ 100 mls/hr IVPB BID@0500,1700 DAVID PRN Reason: Protocol Last Admin: 01/24/17 05:19 Dose: 100 mls/hr Propofol (Diprivan -) 100 mls @ 3.486 mls/hr IVPB TITR DAVID; 5 MCG/KG/MIN PRN Reason: Protocol Metoprolol Tartrate (Lopressor Injection -) 5 mg IVPB Q8H-IV DAVID Last Admin: 01/24/17 09:06 Dose: 5 mg - Objective Vital Signs: Vital Signs Temperature 99.4 F 01/24/17 05:25 Pulse Rate 92 H 01/24/17 09:06 Respiratory Rate 24 01/24/17 06:36 Blood Pressure 124/64 01/24/17 09:06 O2 Sat by Pulse Oximetry (%) 99 01/23/17 21:00 Constitutional: Yes: Pallor Neck: Yes: Supple Cardiovascular: Yes: Pulse Irregular, S1, S2 Respiratory: Yes: Diminished, Poor Air Entry, Rales, Rhonchi Gastrointestinal: Yes: Abdomen, Obese, Distention, Other (JAMES drains in place, draining pus.) Extremities: Yes: Other (Externally rotated left foot. ? Fracture hip) Edema: Yes Edema: LLE: 3+, RLE: 3+ Neurological: Yes: Other (comatose) Labs: CBC, BMP 01/24/17 09:35 01/24/17 09:35 INR, PTT INR 1.41 (0.82-1.09) H 01/17/17 05:30 Problem List - Problems (1) Abdominal abscess Code(s): K65.1 - PERITONEAL ABSCESS (2) Abdominal fluid collection Code(s): R18.8 - OTHER ASCITES (3) Acute renal failure (ARF) Code(s): N17.9 - ACUTE KIDNEY FAILURE, UNSPECIFIED (4) Atrial fibrillation Code(s): I48.91 - UNSPECIFIED ATRIAL FIBRILLATION Qualifiers: Atrial fibrillation type: chronic Qualified Code(s): I48.2 - Chronic atrial fibrillation (5) CKD (chronic kidney disease) Code(s): N18.9 - CHRONIC KIDNEY DISEASE, UNSPECIFIED (6) Diverticulitis Code(s): K57.92 - DVTRCLI OF INTEST, PART UNSP, W/O PERF OR ABSCESS W/O BLEED (7) Intra-abdominal abscess post-procedure Code(s): T81.4XXA - INFECTION FOLLOWING A PROCEDURE, INITIAL ENCOUNTER K65.1 - PERITONEAL ABSCESS Qualifiers: Encounter type: initial encounter Qualified Code(s): T81.4XXA - Infection following a procedure, initial encounter; K65.1 - Peritoneal abscess (8) Perforated bowel Code(s): K63.1 - PERFORATION OF INTESTINE (NONTRAUMATIC) (9) Sepsis Code(s): A41.9 - SEPSIS, UNSPECIFIED ORGANISM Qualifiers: Sepsis type: sepsis due to unspecified organism Qualified Code(s): A41.9 - Sepsis, unspecified organism (10) Tachycardia Code(s): R00.0 - TACHYCARDIA, UNSPECIFIED Assessment/Plan This is a 81 year old woman with PMhx of CKD Diverticulosis, DVT/PE on Warfarin , Hypertension who presented with Abd pain and found to have perforated bowel with diverticulitis s/p bowel resection with colostomy. Acute Renal failure superimposed on CKD, most likely due to unstable hemodynamic factors. Azotemia slightly worse, but the urine output has improved. The JG is expected to reflect the on-going severe instability in the renal functions. Sepsis and Hypotension results in compromised renal perfusion. The finding of left foot external rotation. ? Its significance. Will continue the ABx. Will follow with you. Shayna Palomares MD
--- NOTE | 2017-01-24 12:38 | PN ---
Progress Note, Physician Chief Complaint: On respirator History of Present Illness: S/P colostomy for perforated colon Sepsis on IV antibiotics - Current Medication List Current Medications: Active Medications Acetaminophen (Ofirmev Injection -) 1,000 mg IVPB Q6H PRN PRN Reason: FEVER Last Admin: 01/23/17 14:45 Dose: 1,000 mg Albuterol/Ipratropium (Duoneb -) 1 amp NEB QIDR DAVID Last Admin: 01/24/17 12:13 Dose: 1 amp Chlorhexidine Gluconate (Hibiclens For Decolonization -) 1 applic TP HS DAVID Last Admin: 01/23/17 21:48 Dose: 1 applic Heparin Sodium (Porcine) (Heparin -) 1,000 unit IVPUSH PRN PRN PRN Reason: Heparin Last Admin: 01/17/17 23:46 Dose: 1,000 unit Heparin Sodium (Porcine) (Heparin -) 5,000 unit IVPUSH PRN PRN PRN Reason: Heparin Last Admin: 01/17/17 07:41 Dose: 5,000 unit Famotidine/Sodium Chloride (Pepcid 20 Mg Premixed Ivpb -) 50 mls @ 100 mls/hr IVPB BID [facility] Last Admin: 01/24/17 09:05 Dose: 100 mls/hr Fluconazole (Diflucan 200 Mg/D5w Premixed Ivpb -) 100 mls @ 100 mls/hr IVPB DAILY [facility] Last Admin: 01/24/17 09:04 Dose: 100 mls/hr Heparin Sodium/Dextrose (Heparin Infusion -) 500 mls @ 20 mls/hr IVPB TITR DAVID ; 1,000 UNITS/HR PRN Reason: Protocol Last Admin: 01/23/17 17:49 Dose: 18 mls/hr Meropenem 1 gm/ Dextrose 100 mls @ 100 mls/hr IVPB BID@0500,1700 DAVID PRN Reason: Protocol Last Admin: 01/24/17 05:19 Dose: 100 mls/hr Propofol (Diprivan -) 100 mls @ 3.486 mls/hr IVPB TITR DAVID; 5 MCG/KG/MIN PRN Reason: Protocol Metoprolol Tartrate (Lopressor Injection -) 5 mg IVPB Q8H-IV DAVID Last Admin: 01/24/17 09:06 Dose: 5 mg - Objective Vital Signs: Vital Signs Temperature 99.7 F H 01/24/17 10:00 Pulse Rate 84 01/24/17 10:00 Respiratory Rate 25 H 01/24/17 12:12 Blood Pressure 115/49 01/24/17 10:00 O2 Sat by Pulse Oximetry (%) 98 01/24/17 10:00 Constitutional: Yes: No Distress Eyes: Yes: WNL HENT: Yes: WNL Neck: Yes: WNL Cardiovascular: Yes: Pulse Irregular Respiratory: Yes: Mechanically Ventilated Gastrointestinal: Yes: Other (colostomy working) Genitourinary: Yes: Jennings Present Breast(s): Yes: WNL Edema: Yes Edema: LUE: 1+, RUE: 1+, LLE: 1+, RLE: 1+ Wound/Incision: Yes: Clean/Dry Neurological: Yes: Lethargy Labs: CBC, BMP 01/24/17 09:35 01/24/17 09:35 INR, PTT INR 1.41 (0.82-1.09) H 01/17/17 05:30 Assessment/Plan Continue present care
--- NOTE | 2017-01-24 13:38 | PN ---
Progress Note, Physician History of Present Illness: continues to be sedated and intubated still with pus drainage wbc slightly higher - Current Medication List Current Medications: Active Medications Acetaminophen (Ofirmev Injection -) 1,000 mg IVPB Q6H PRN PRN Reason: FEVER Last Admin: 01/23/17 14:45 Dose: 1,000 mg Albuterol/Ipratropium (Duoneb -) 1 amp NEB QIDR DAVID Last Admin: 01/24/17 12:13 Dose: 1 amp Chlorhexidine Gluconate (Hibiclens For Decolonization -) 1 applic TP HS DAVID Last Admin: 01/23/17 21:48 Dose: 1 applic Heparin Sodium (Porcine) (Heparin -) 1,000 unit IVPUSH PRN PRN PRN Reason: Heparin Last Admin: 01/17/17 23:46 Dose: 1,000 unit Heparin Sodium (Porcine) (Heparin -) 5,000 unit IVPUSH PRN PRN PRN Reason: Heparin Last Admin: 01/17/17 07:41 Dose: 5,000 unit Famotidine/Sodium Chloride (Pepcid 20 Mg Premixed Ivpb -) 50 mls @ 100 mls/hr IVPB BID ON LICENSE OF [facility] Last Admin: 01/24/17 09:05 Dose: 100 mls/hr Fluconazole (Diflucan 200 Mg/D5w Premixed Ivpb -) 100 mls @ 100 mls/hr IVPB DAILY ON LICENSE OF [facility] Last Admin: 01/24/17 09:04 Dose: 100 mls/hr Heparin Sodium/Dextrose (Heparin Infusion -) 500 mls @ 20 mls/hr IVPB TITR DAVID ; 1,000 UNITS/HR PRN Reason: Protocol Last Admin: 01/23/17 17:49 Dose: 18 mls/hr Meropenem 1 gm/ Dextrose 100 mls @ 100 mls/hr IVPB BID@0500,1700 DAVID PRN Reason: Protocol Last Admin: 01/24/17 05:19 Dose: 100 mls/hr Propofol (Diprivan -) 100 mls @ 3.486 mls/hr IVPB TITR DAVID; 5 MCG/KG/MIN PRN Reason: Protocol Metoprolol Tartrate (Lopressor Injection -) 5 mg IVPB Q8H-IV DAVID Last Admin: 01/24/17 09:06 Dose: 5 mg - Objective Vital Signs: Vital Signs Temperature 99.7 F H 08/12/17 10:00 Pulse Rate 84 01/24/17 10:00 Respiratory Rate 25 H 01/24/17 12:12 Blood Pressure 115/49 01/24/17 10:00 O2 Sat by Pulse Oximetry (%) 98 01/24/17 10:00 Constitutional: Yes: Other Cardiovascular: Yes: Pulse Irregular, S1 Respiratory: Yes: Intubated, Mechanically Ventilated Gastrointestinal: Yes: Other (wound dsg in place colostomy drain tube in place with draiange present) Musculoskeletal: Yes: Other Extremities: Yes: Other Wound/Incision: Yes: Dressing Dry and Intact, Other Neurological: Yes: Other Psychiatric: Yes: Other Labs: CBC, BMP 01/24/17 09:35 01/24/17 09:35 INR, PTT INR 1.41 (0.82-1.09) H 01/17/17 05:30 Assessment/Plan 81 y/o old with multiple medical problems with perforated bowel post op Perforated bowel Peritonitis Sepsis s/p ex-lap with sigmoid resection, colostomy Resolving JG Lactic acidosis AF h/o DVT/PE plan continue abx cx report noted conitnue current abx for now patient continues to be critical will see what wbc trend is cc tim40 min
--- NOTE | 2017-01-24 14:16 | PN ---
Progress Note (short form) - Note Progress Note: Covering for Dr. Taqueria Prado 81yo morbidly obese F with multiple medical problems POD 15 s/p Nathanael's procedure for perforated diverticulitis with abscess. Ostomy has been functioning, though output is liquid brown and not formed stool. JAMES drain now with serous drainage with some brown particulates, scant over last few days. She had percutaneous drain placed in LLQ collection, which is draining brown purulent fluid, 105ml yesterday, 80 so far today. Midline incision is packed open. On heparin drip for afib. On antibiotics per ID. She was reintubated recently and remains vented via ETT. On sedation. ICU team working to wean as able. Vital Signs Period Temp Pulse Resp BP Sys/Riley Pulse Ox Last 24 Hr 98.7 F-99.9 F 80-110 18-33 95-127/37-86 98-99 Intake & Output 01/23/17 01/24/17 01/24/17 23:59 07:59 15:59 Intake Total 1723 695 Output Total 525 430 Balance 1198 265 Weight 256 lb 2.834 oz Intake: IV 734 126 Heparin Infusion - 500 ml 234 126 @ 1,000 UNITS/HR 20 mls/ hr IVPB TITR DAVID Rx#: [id number] Versed - 100 mg In Normal 0 0 Saline - 100 ml @ 2 MG/ HR 2 mls/hr IVPB TITR DAVID Rx#:[id number] Normal Saline - 500 ml @ 500 500 mls/hr IV ASDIR STA Rx#:[id number] IVPB 150 100 Tube Feeding 210 294 Tube Irrigant 629 175 Output: Drainage 25 80 Left Abdomen 25 80 Right Abdomen 0 0 Urine 500 350 Jennings 500 350 Other: Voiding Method Indwelling Catheter Indwelling Catheter Bowel Movement Yes Weight Measurement Method Built in [facility] PE: pt responds to pain but not to voice, does not open eyes vented and sedated morbidly obese abdomen soft, obese, tender mainly in RUQ, possibly RLQ (turned to left side, but does not respond much to palpation of left abdomen) ostomy pink, patent, productive of small amount of liquid dark brown stool in bag midline open incision dressing changed with saline-dampened Kerlix gauze and covered with gauze/ABD and tape wound base is mostly yellow/fatty and fairly dry, few areas of granulation starting at edges, has opened around umbilicus for one continuous wound, some blackened skin at umbilical edge has yet to slough RLQ JAMES tubing stripped with scant clear drainage with brownish particles in bulb LLQ perc drain to bulb suction - stripped with evacuation of ~25ml brown creamy fluid extremities edematous Jennings in place with yellow urine CBCD WBC 17.3 K/mm3 (4.0-10.0) H 01/24/17 09:35 RBC 2.70 M/mm3 (3.60-5.2) L 01/24/17 09:35 Hgb 8.7 GM/dL (10.7-15.3) L 01/24/17 09:35 Hct 27.5 % (32.4-45.2) L 01/24/17 09:35 MCV 101.9 fl (80-96) H 01/24/17 09:35 MCHC 31.5 g/dl (32.0-36.0) L 01/24/17 09:35 RDW 15.4 % (11.6-15.6) 01/24/17 09:35 Plt Count 340 K/MM3 (134-434) 01/24/17 09:35 MPV 9.5 fl (7.5-11.1) 01/24/17 09:35 CMP Sodium 141 mmol/L (136-145) 01/24/17 09:35 Potassium 3.8 mmol/L (3.5-5.1) 01/24/17 09:35 Chloride 108 mmol/L (98-107) H 01/24/17 09:35 Carbon Dioxide 24 mmol/L (21-32) 01/24/17 09:35 Anion Gap 9 (8-16) 01/24/17 09:35 BUN 42 mg/dL (7-18) H 01/24/17 09:35 Creatinine 2.1 mg/dL (0.55-1.02) H 01/24/17 09:35 Creat Clearance w eGFR 22.55 (>60) 01/24/17 09:35 Calcium 8.5 mg/dL (8.5-10.1) 01/24/17 09:35 Total Bilirubin 0.6 mg/dL (0.2-1.0) 01/24/17 09:35 AST 34 U/L (15-37) D 01/24/17 09:35 ALT 17 U/L (12-78) 01/24/17 09:35 Alkaline Phosphatase 106 U/L (45-117) D 01/24/17 09:35 Total Protein 4.7 g/dl (6.4-8.2) L 01/24/17 09:35 Albumin 1.6 g/dl (3.4-5.0) L 01/24/17 09:35 wbc sideways, slt up from yest, as is H/H, BUN/Cr (had lasix yest) A/P: POD15 s/p Nathanael's for perforated diverticulitis with abscess LLQ intraabdominal collections s/p perc drainage - culture grew E. coli, S. viridans and possibly an anaerobe (no ID yet) continue antibiotics as per ID getting tube feeds, ostomy functioning continue dressing changes to midline wound with saline-dampened Kerlix - done now keep bulbs to suction for drainage Ranjith LUEVANO This patient is critically ill; time spent reviewing chart, patient exam and documentation is 45 mins. Problem List - Problems (1) Diverticulitis of large intestine with perforation and abscess without bleeding Code(s): K57.20 - DVTRCLI OF LG INT W PERFORATION AND ABSCESS W/O BLEEDING (2) Intra-abdominal abscess post-procedure Code(s): T81.4XXA - INFECTION FOLLOWING A PROCEDURE, INITIAL ENCOUNTER K65.1 - PERITONEAL ABSCESS Qualifiers: Qualified Code(s): T81.4XXA - Infection following a procedure, initial encounter; K65.1 - Peritoneal abscess (3) Sepsis Code(s): A41.9 - SEPSIS, UNSPECIFIED ORGANISM Qualifiers: Qualified Code(s): A41.9 - Sepsis, unspecified organism (4) Atrial fibrillation Code(s): I48.91 - UNSPECIFIED ATRIAL FIBRILLATION Qualifiers: Qualified Code(s): I48.2 - Chronic atrial fibrillation
[2017-01-24] MEDS: HEPARIN INFUSION - 500 ML IVPB SCH (16:00)
[2017-01-24] MEDS: ACETAMINOPHEN 1000 MG/100 ML VIAL (NON FORMULARY) IVPB PRN (16:32)
--- NOTE | 2017-01-24 18:03 | PN ---
Progress Note (short form) - Note Progress Note: 81 year female with severe LV dysfuntion, ruptured diverticulitis S/P colostomy, abdominal abscess,respiratory failure,intubated and sedated.H/O hypertension. No change in status,hemodynamically is stable.Family is aware of the critical nature of her illness and prognosis. Active Medications Generic Name Dose Route Start Last Admin Trade Name Freq PRN Reason Stop Dose Admin Acetaminophen 1,000 mg 01/11/17 18:03 01/24/17 16:32 Ofirmev Injection - IVPB 1,000 mg Q6H PRN Administration FEVER Albuterol/Ipratropium 1 amp 01/11/17 00:00 01/24/17 17:12 Duoneb - NEB 1 amp QIDR DAVID Administration Chlorhexidine Gluconate 1 applic 01/20/17 22:00 01/23/17 21:48 Hibiclens For Decolonization - TP 1 applic HS DAVID Administration Heparin Sodium (Porcine) 1,000 unit 01/12/17 16:52 01/17/17 23:46 Heparin - IVPUSH 1,000 unit PRN PRN Administration Heparin Heparin Sodium (Porcine) 5,000 unit 01/12/17 16:52 01/17/17 07:41 Heparin - IVPUSH 5,000 unit PRN PRN Administration Heparin Famotidine/Sodium Chloride 50 mls @ 100 mls/hr 01/10/17 10:00 01/24/17 09:05 Pepcid 20 Mg Premixed Ivpb - IVPB 100 mls/hr BID DAVID Administration Fluconazole 100 mls @ 100 mls/hr 01/11/17 13:00 01/24/17 09:04 Diflucan 200 Mg/D5w Premixed Ivpb - IVPB 100 mls/hr DAILY DAVID Administration Heparin Sodium/Dextrose 500 mls @ 20 mls/hr 01/12/17 17:00 01/23/17 17:49 Heparin Infusion - IVPB 18 mls/hr TITR DAVID Administration Protocol 1,000 UNITS/HR Meropenem 1 gm/ Dextrose 100 mls @ 100 mls/hr 01/15/17 17:00 01/24/17 05:19 IVPB 100 mls/hr BID@0500,1700 DAVID Administration Protocol Propofol 100 mls @ 3.486 mls/hr 01/24/17 10:00 Diprivan - IVPB TITR DAVID Protocol 5 MCG/KG/MIN Metoprolol Tartrate 5 mg 01/11/17 15:20 01/24/17 09:06 Lopressor Injection - IVPB 5 mg Q8H-IV DAVID Administration O: Intubated and sedated. Vital Signs 01/24/17 01/24/17 01/24/17 10:00 12:00 12:12 Temperature 99.7 F H 100 F H Pulse Rate 84 88 Respiratory 27 H 24 25 H Rate Blood Pressure 115/49 110/50 O2 Sat by Pulse 98 Oximetry (%) 01/24/17 01/24/17 01/24/17 14:00 14:36 17:11 Temperature 100.2 F H Pulse Rate 90 Respiratory 26 H 22 28 H Rate Blood Pressure 121/49 O2 Sat by Pulse Oximetry (%) NECK: Supple, NO JVD,+HJR, carotids 1+ HEART: Heart sounds are diastant, no murmuror gallops were appreciated. LUNGS: Decreased breath sounds at both bases. ABDOMEN. Diffuse tenderness on palpation. EXT; No calf tenderness, 2+bilateral ankle edema 1. Severe LV dysfunction. 2. Abdominal abscess. 3. Ruptured diverticulits. 4. Colostomy. 5. H/o Hypertension. 6. Abdominal fluid collection secondary to abscess. 7. CLBBB. 8. Ventricular premature beats. 9. Respiratory failure. 10.Abdominal fluid collection. 11. Anemia. 12. Renal insufficiency. 01/24/17 09:35 01/24/17 09:35 Recommendation: 1. F/O CBC and BMP. 2. Continue IV betablockers. Prognosis: critical.
[2017-01-24] MEDS: CHLORHEXIDINE GLUCONATE 4% CLEANSER FOR DECOLONIZATION TP SCH (21:55)
[2017-01-25] MEDS: METOPROLOL TARTRATE 5 MG/5 ML VIAL IVPB SCH ×3 (02:27→17:05)
[2017-01-25] MEDS: PROPOFOL 100 ML IVPB SCH ×2 (02:28→09:08)
[2017-01-25] MEDS ORDERED: PT OWN MED DRAWER 7, Y5N ONE ×2 (05:15→17:02)
[2017-01-25] MEDS: MEROPENEM 1 GM in DEXTROSE 5%-WATER - 100 ML IVPB SCH ×2 (05:18→17:05)
[2017-01-25 06:29] LABS: MCH 32.8 pg (25.7-33.7); MCHC 32.7 g/dl (32.0-36.0); MEAN CELL VOLUME 100.3 fl (80-96); MEAN PLT VOLUME 9.7 fl (7.5-11.1); PLATELET COUNT 305 K/MM3 (134-434); WHITE BLOOD COUNT 13.7 K/mm3 (4.0-10.0)
[2017-01-25] MEDS: ALBUTEROL SO4 2.5/IPRATROPIUM 0.5 INH SOL 3 ML VIAL.NEB. NEB SCH ×4 (06:49→23:08)
[2017-01-25 07:12] LABS: ALBUMIN 1.4 g/dl (3.4-5.0); ALK PHOS 92 U/L (45-117); ANION GAP 9 (8-16); CALCIUM 8.4 mg/dL (8.5-10.1); CO2 24 mmol/L (21-32); CREATININE 2.1 mg/dL (0.55-1.02); GLUCOSE,RANDOM 110 mg/dL (74-106); MAGNESIUM 2.3 mg/dL (1.8-2.4); PHOSPHOROUS 4.9 mg/dL (2.5-4.9); SGOT/AST 24 U/L (15-37); SGPT/ALT 15 U/L (12-78); TOT PROT 4.3 g/dl (6.4-8.2)
[2017-01-25 07:50] LABS: ARTERIAL BLD GAS O2 SATURATION 97.6 % (90-98.9); ARTERIAL BLOOD GAS BASE EXCESS -2.1 meq/l (-2-2); ARTERIAL BLOOD GAS HCO3 23.6 meq/L (22-26)
[2017-01-25 07:52] LABS: ALLENS TEST POSITIVE
[2017-01-25 07:53] LABS: ART PUNCT SITE LEFT RADIAL; ARTERIAL BLOOD GAS pH 7.31 (7.35-7.45); LPM/O2% 55; MECH. VENT. ESPRIT; PT. ON O2? YES; TYPE OF O2 OT; VENT RATE 16; VT/PRESS 450
[2017-01-25] MEDS: FAMOTIDINE 20 MG/50 ML IVPB 50 ML IVPB SCH ×2 (09:06→21:41)
[2017-01-25] MEDS: FLUCONAZOLE 200 MG/D5W 100 ML IVPB SCH (09:07)
--- NOTE | 2017-01-25 10:02 | PN ---
Progress Note (short form) - Note Progress Note: Patient seen and examined at bedside. Remains intubated. Remains off sedation , lethragic but arousable. Intermittent spontaneous movement. AC Mode of vent, 55% FiO2. No pressors. (+) Dark liquid stools noted in ostomy, tolerating feeds. (+) infected looking material left JAMES CXR : Some mild improvement on the right Intake & Output 01/22/17 01/23/17 01/24/17 01/25/17 23:59 23:59 23:59 23:59 Intake Total 3102 3262 2021 1120 Output Total 795 1555 865 535 Balance 2307 1707 1156 585 Weight 116 lb 5 oz 254 lb 10.142 oz 256 lb 2.834 oz 258 lb Last Vital Signs Temp Pulse Resp BP Pulse Ox 98.4 F 83 20 119/91 98 01/25/17 05:58 01/25/17 09:06 01/25/17 08:14 01/25/17 09:06 01/24/17 20:00 Active Medications Acetaminophen (Ofirmev Injection -) 1,000 mg IVPB Q6H PRN PRN Reason: FEVER Last Admin: 01/24/17 16:32 Dose: 1,000 mg Albuterol/Ipratropium (Duoneb -) 1 amp NEB QIDR [facility] Last Admin: 01/25/17 06:49 Dose: 1 amp Chlorhexidine Gluconate (Hibiclens For Decolonization -) 1 applic TP HS [facility] Last Admin: 01/24/17 21:55 Dose: 1 applic Heparin Sodium (Porcine) (Heparin -) 1,000 unit IVPUSH PRN PRN PRN Reason: Heparin Last Admin: 01/17/17 23:46 Dose: 1,000 unit Heparin Sodium (Porcine) (Heparin -) 5,000 unit IVPUSH PRN PRN PRN Reason: Heparin Last Admin: 01/17/17 07:41 Dose: 5,000 unit Famotidine/Sodium Chloride (Pepcid 20 Mg Premixed Ivpb -) 50 mls @ 100 mls/hr IVPB BID [facility] Last Admin: 01/25/17 09:06 Dose: 100 mls/hr Fluconazole (Diflucan 200 Mg/D5w Premixed Ivpb -) 100 mls @ 100 mls/hr IVPB DAILY [facility] Last Admin: 01/25/17 09:07 Dose: 100 mls/hr Heparin Sodium/Dextrose (Heparin Infusion -) 500 mls @ 20 mls/hr IVPB TITR DAVID ; 1,000 UNITS/HR PRN Reason: Protocol Last Titration: 01/25/17 09:09 Dose: 1,000 units/hr Meropenem 1 gm/ Dextrose 100 mls @ 100 mls/hr IVPB BID@0500,1700 DAVID PRN Reason: Protocol Last Admin: 01/25/17 05:18 Dose: 100 mls/hr Propofol (Diprivan -) 100 mls @ 3.486 mls/hr IVPB TITR DAVID; 5 MCG/KG/MIN PRN Reason: Protocol Last Admin: 01/25/17 09:08 Dose: Not Given Metoprolol Tartrate (Lopressor Injection -) 5 mg IVPB Q8H-IV DAVID Last Admin: 01/25/17 09:06 Dose: 5 mg Constitutional: Yes: Intubated, arousable Eyes: Yes: (-) Pallor (-) Icterus HENT: Yes: Normocephalic Neck: Yes: Supple, Trachea Midline Cardiovascular: Yes: Tachycardia, Pulse Irregular, S1, S2 Respiratory: Yes: Bilateral scattered Rhonchi and crackles Gastrointestinal: Yes: Soft, (+) BS, brownish discharge from drain, incision C/D /I, appropriately tender, ostomy pink with some output Genitourinary: Yes: Jennings Present Extremities: Yes: WNL Edema: No Integumentary: Yes: Tenting Wound/Incision: Yes: Clean/Dry Neurological: Yes: Alert, non-focal Psychiatric: Yes: Cooperative Labs: Laboratory Results - last 24 hr 01/24/17 01/24/17 01/25/17 09:35 09:35 05:35 WBC 17.3 H 13.7 H RBC 2.70 L 2.39 L Hgb 8.7 L 7.8 L D Hct 27.5 L 23.9 L MCV 101.9 H 100.3 H MCH 32.1 32.8 MCHC 31.5 L 32.7 RDW 15.4 15.0 Plt Count 340 305 MPV 9.5 9.7 Neutrophils % 84.0 H Lymphocytes % 10.0 D Monocytes % 4.0 Myelocytes 2 D Nucleated RBCs 3 H Differential Comment Manual diff done Platelet Estimate Adequate PTT (Actin FS) Puncture Site ABG pH ABG pCO2 at Pt Temp ABG pO2 at Pt Temp ABG HCO3 ABG O2 Sat (Measured) ABG O2 Content ABG Base Excess Jose A Test O2 Delivery Device Oxygen Flow Rate Vent Mode Vent Rate Mechanical Rate PEEP Pressure Support Vent Sodium 141 Potassium 3.8 Chloride 108 H Carbon Dioxide 24 Anion Gap 9 BUN 42 H Creatinine 2.1 H Creat Clearance w eGFR 22.55 Random Glucose 113 H Calcium 8.5 Phosphorus Magnesium Total Bilirubin 0.6 AST 34 D ALT 17 Alkaline Phosphatase 106 D Total Protein 4.7 L Albumin 1.6 L 01/25/17 01/25/17 01/25/17 05:35 07:00 07:50 WBC RBC Hgb Hct MCV MCH MCHC RDW Plt Count MPV Neutrophils % Lymphocytes % Monocytes % Myelocytes Nucleated RBCs Differential Comment Platelet Estimate PTT (Actin FS) 41.1 H Puncture Site Left radial ABG pH 7.31 L ABG pCO2 at Pt Temp 48.4 H ABG pO2 at Pt Temp 100.0 ABG HCO3 23.6 ABG O2 Sat (Measured) 97.6 ABG O2 Content 11.5 L ABG Base Excess -2.1 L Jose A Test Positive O2 Delivery Device Ot Oxygen Flow Rate 55 Vent Mode Ac Vent Rate 16 Mechanical Rate Esprit PEEP 5.0 Pressure Support Vent 450 Sodium 139 Potassium 3.8 Chloride 106 Carbon Dioxide 24 Anion Gap 9 BUN 51 H D Creatinine 2.1 H Creat Clearance w eGFR 22.55 Random Glucose 110 H Calcium 8.4 L Phosphorus 4.9 Magnesium 2.3 Total Bilirubin 1.0 D AST 24 D ALT 15 Alkaline Phosphatase 92 Total Protein 4.3 L Albumin 1.4 L Assessment/Plan Intra-abdominal collection Perforated diverticulitis S/P Sigmoid resection with colostomy. 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 component of BALJIT -> Time period too long) Vent settings adjusted Monitor drainage Strict I&O Continue to hold sedation to further assess mental status -> If sedation is needed -> low dose propofol Feeds as tolerated IV Heparin SBTs as tolerated Dr Anglin Critical Care Time Total Critical Care Time: 35 Critical Care Statement: The care of this patient involved high complexity decision making to prevent further life threatening deterioration of the patient 's condition and/or to evaluate & treat vital organ system(s) failure or risk of failure.
[2017-01-25] MEDS: HEPARIN NA (PORCINE) 5,000 UNITS/ML 1ML VIAL IVPUSH PRN ×2 (10:20→19:30)
--- NOTE | 2017-01-25 11:53 | PN ---
Progress Note (short form) - Note Progress Note: Covering for Dr. Taqueria Prado 81yo morbidly obese F with multiple medical problems POD 16 s/p Nathanael's procedure for perforated diverticulitis with abscess. Ostomy has been functioning, though output is liquid brown and not formed stool. JAMES drain now with clear drainage with some brown particulates, 5ml yest, 10ml so far today. She has percutaneous drain in LLQ collection, which is draining brown purulent fluid, 110ml yesterday, 25 so far today. Midline incision is packed open. On heparin drip for afib. On antibiotics per ID. She was reintubated recently and remains vented via ETT. On light sedation, arousable to pain or sternal stimulation, opens eyes, grimaces to pain. ICU team working to wean as able. Vital Signs Period Temp Pulse Resp BP Sys/Riley Pulse Ox Last 24 Hr 98.3 F-100.5 F 75-101 17-28 107-130/46-91 95-98 Intake & Output 01/24/17 01/25/17 01/25/17 23:59 07:59 15:59 Intake Total 1326 1120 Output Total 35 535 Balance 1291 585 Weight 258 lb Intake: IV 126 216 Heparin Infusion - 500 ml 126 216 @ 1,000 UNITS/HR 20 mls/ hr IVPB TITR DAVID Rx#: [id number] IVPB 350 100 Tube Feeding 500 504 Tube Irrigant 350 300 Output: Gastric Drainage 0 Drainage 35 35 Left Abdomen 30 25 Right Abdomen 5 10 Urine 500 Jennings 500 Other: Voiding Method Indwelling Catheter Indwelling Catheter Bowel Movement Yes Weight Measurement Method Built in [facility] PE: pt responds to pain and opens eyes briefly vented and lightly sedated morbidly obese abdomen soft, obese, tender in bilateral upper quadrants ostomy pink, patent, productive of small amount of liquid dark brown stool in bag midline open incision dressing changed with saline-dampened Kerlix gauze and covered with gauze/ABD and tape wound base is mostly yellow/fatty with some pink, granulating areas on ly, dark/necrotic skin patch at umbilicus RLQ JAMES tubing stripped with scant clear drainage with light brownish particles in bulb LLQ perc drain to bulb suction - stripped with brown creamy fluid in bulb tegaderm over perc drain site missing - replaced after site cleansed with alcohol pad extremities edematous Jennings in place with yellow urine CBCD WBC 13.7 K/mm3 (4.0-10.0) H 01/25/17 05:35 RBC 2.39 M/mm3 (3.60-5.2) L 01/25/17 05:35 Hgb 7.8 GM/dL (10.7-15.3) L D 01/25/17 05:35 Hct 23.9 % (32.4-45.2) L 01/25/17 05:35 MCV 100.3 fl (80-96) H 01/25/17 05:35 MCHC 32.7 g/dl (32.0-36.0) 01/25/17 05:35 RDW 15.0 % (11.6-15.6) 01/25/17 05:35 Plt Count 305 K/MM3 (134-434) 01/25/17 05:35 MPV 9.7 fl (7.5-11.1) 01/25/17 05:35 CMP Sodium 139 mmol/L (136-145) 01/25/17 05:35 Potassium 3.8 mmol/L (3.5-5.1) 01/25/17 05:35 Chloride 106 mmol/L (98-107) 01/25/17 05:35 Carbon Dioxide 24 mmol/L (21-32) 01/25/17 05:35 Anion Gap 9 (8-16) 01/25/17 05:35 BUN 51 mg/dL (7-18) H D 01/25/17 05:35 Creatinine 2.1 mg/dL (0.55-1.02) H 01/25/17 05:35 Creat Clearance w eGFR 22.55 (>60) 01/25/17 05:35 Calcium 8.4 mg/dL (8.5-10.1) L 01/25/17 05:35 Total Bilirubin 1.0 mg/dL (0.2-1.0) D 01/25/17 05:35 AST 24 U/L (15-37) D 01/25/17 05:35 ALT 15 U/L (12-78) 01/25/17 05:35 Alkaline Phosphatase 92 U/L (45-117) 01/25/17 05:35 Total Protein 4.3 g/dl (6.4-8.2) L 01/25/17 05:35 Albumin 1.4 g/dl (3.4-5.0) L 01/25/17 05:35 wbc, h/h down; BUN up A/P: POD16 s/p Nathanael's for perforated diverticulitis with abscess LLQ intraabdominal collections s/p perc drainage - culture grew E. coli, S. viridans and possibly an anaerobe (no ID yet) continue antibiotics as per ID getting tube feeds, ostomy functioning continue dressing changes to midline wound with saline-dampened Kerlix - done now keep bulbs to suction for drainage wean vent per ICU team Ranjith LUEVANO This patient is critically ill; time spent reviewing chart, patient exam and documentation is 35 mins. Problem List - Problems (1) Diverticulitis of large intestine with perforation and abscess without bleeding Code(s): K57.20 - DVTRCLI OF LG INT W PERFORATION AND ABSCESS W/O BLEEDING (2) Intra-abdominal abscess post-procedure Code(s): T81.4XXA - INFECTION FOLLOWING A PROCEDURE, INITIAL ENCOUNTER K65.1 - PERITONEAL ABSCESS Qualifiers: Encounter type: initial encounter Qualified Code(s): T81.4XXA - Infection following a procedure, initial encounter; K65.1 - Peritoneal abscess (3) Sepsis Code(s): A41.9 - SEPSIS, UNSPECIFIED ORGANISM Qualifiers: Sepsis type: sepsis due to unspecified organism Qualified Code(s): A41.9 - Sepsis, unspecified organism (4) Atrial fibrillation Code(s): I48.91 - UNSPECIFIED ATRIAL FIBRILLATION Qualifiers: Atrial fibrillation type: chronic Qualified Code(s): I48.2 - Chronic atrial fibrillation
--- NOTE | 2017-01-25 13:24 | PN ---
Progress Note, Physician Chief Complaint: The patient seen in the ICU. Off Versed. The patient is more arousable. and daughter visiting. BP stable. Put out 750 ml urine last 24 hours. Generalized edema unchanged. - Current Medication List Current Medications: Active Medications Acetaminophen (Ofirmev Injection -) 1,000 mg IVPB Q6H PRN PRN Reason: FEVER Last Admin: 01/24/17 16:32 Dose: 1,000 mg Albuterol/Ipratropium (Duoneb -) 1 amp NEB QIDR DAVID Last Admin: 01/25/17 11:57 Dose: 1 amp Chlorhexidine Gluconate (Hibiclens For Decolonization -) 1 applic TP HS [facility] Last Admin: 01/24/17 21:55 Dose: 1 applic Heparin Sodium (Porcine) (Heparin -) 1,000 unit IVPUSH PRN PRN PRN Reason: Heparin Last Admin: 01/25/17 10:20 Dose: 1,000 unit Heparin Sodium (Porcine) (Heparin -) 5,000 unit IVPUSH PRN PRN PRN Reason: Heparin Last Admin: 01/17/17 07:41 Dose: 5,000 unit Famotidine/Sodium Chloride (Pepcid 20 Mg Premixed Ivpb -) 50 mls @ 100 mls/hr IVPB BID [facility] Last Admin: 01/25/17 09:06 Dose: 100 mls/hr Fluconazole (Diflucan 200 Mg/D5w Premixed Ivpb -) 100 mls @ 100 mls/hr IVPB DAILY [facility] Last Admin: 01/25/17 09:07 Dose: 100 mls/hr Heparin Sodium/Dextrose (Heparin Infusion -) 500 mls @ 20 mls/hr IVPB TITR DAVID ; 1,000 UNITS/HR PRN Reason: Protocol Last Titration: 01/25/17 09:09 Dose: 1,000 units/hr Meropenem 1 gm/ Dextrose 100 mls @ 100 mls/hr IVPB BID@0500,1700 DAVID PRN Reason: Protocol Last Admin: 01/25/17 05:18 Dose: 100 mls/hr Propofol (Diprivan -) 100 mls @ 3.486 mls/hr IVPB TITR DAVID; 5 MCG/KG/MIN PRN Reason: Protocol Last Admin: 01/25/17 09:08 Dose: Not Given Metoprolol Tartrate (Lopressor Injection -) 5 mg IVPB Q8H-IV DAVID Last Admin: 01/25/17 09:06 Dose: 5 mg - Objective Vital Signs: Vital Signs Temperature 98.3 F 01/25/17 08:00 Pulse Rate 78 01/25/17 12:03 Respiratory Rate 20 01/25/17 12:25 Blood Pressure 120/41 01/25/17 12:03 O2 Sat by Pulse Oximetry (%) 99 01/25/17 10:15 Constitutional: Yes: Pallor Neck: Yes: Trachea Midline Cardiovascular: Yes: S1, S2 Respiratory: Yes: Diminished, Mechanically Ventilated, Rales, Rhonchi Gastrointestinal: Yes: Abdomen, Obese, Other (JAMES drains in place, and draining purulent material) Genitourinary: Yes: Jennings Present Labs: CBC, BMP 01/25/17 05:35 01/25/17 05:35 INR, PTT INR 1.41 (0.82-1.09) H 01/17/17 05:30 Problem List - Problems (1) Abdominal abscess Code(s): K65.1 - PERITONEAL ABSCESS (2) Abdominal fluid collection Code(s): R18.8 - OTHER ASCITES (3) Acute renal failure (ARF) Code(s): N17.9 - ACUTE KIDNEY FAILURE, UNSPECIFIED (4) Atrial fibrillation Code(s): I48.91 - UNSPECIFIED ATRIAL FIBRILLATION Qualifiers: Atrial fibrillation type: chronic Qualified Code(s): I48.2 - Chronic atrial fibrillation (5) CKD (chronic kidney disease) Code(s): N18.9 - CHRONIC KIDNEY DISEASE, UNSPECIFIED (6) Diverticulitis Code(s): K57.92 - DVTRCLI OF INTEST, PART UNSP, W/O PERF OR ABSCESS W/O BLEED (7) Intra-abdominal abscess post-procedure Code(s): T81.4XXA - INFECTION FOLLOWING A PROCEDURE, INITIAL ENCOUNTER K65.1 - PERITONEAL ABSCESS Qualifiers: Encounter type: initial encounter Qualified Code(s): T81.4XXA - Infection following a procedure, initial encounter; K65.1 - Peritoneal abscess (8) Perforated bowel Code(s): K63.1 - PERFORATION OF INTESTINE (NONTRAUMATIC) (9) Sepsis Code(s): A41.9 - SEPSIS, UNSPECIFIED ORGANISM Qualifiers: Sepsis type: sepsis due to unspecified organism Qualified Code(s): A41.9 - Sepsis, unspecified organism (10) Tachycardia Code(s): R00.0 - TACHYCARDIA, UNSPECIFIED Assessment/Plan This is a 81 year old woman with PMhx of CKD Diverticulosis, DVT/PE on Warfarin , Hypertension who presented with Abd pain and found to have perforated bowel with diverticulitis s/p bowel resection with colostomy. Acute Renal failure superimposed on CKD, most likely due to unstable hemodynamic factors. The azotemia is fairly stable. Urine outpuut acceptable. The JG is expected to reflect the on-going severe instability in the renal hemodynamics. Sepsis and Hypotension results in compromised renal perfusion. Will continue the ABx. Will follow with you. Shayna Palomares MD
--- NOTE | 2017-01-25 13:46 | PN ---
Progress Note, Physician History of Present Illness: no specific changes wbc has trended down intubated and sedated - Current Medication List Current Medications: Active Medications Acetaminophen (Ofirmev Injection -) 1,000 mg IVPB Q6H PRN PRN Reason: FEVER Last Admin: 01/24/17 16:32 Dose: 1,000 mg Albuterol/Ipratropium (Duoneb -) 1 amp NEB QIDR DAVID Last Admin: 01/25/17 11:57 Dose: 1 amp Chlorhexidine Gluconate (Hibiclens For Decolonization -) 1 applic TP HS [facility] Last Admin: 01/24/17 21:55 Dose: 1 applic Heparin Sodium (Porcine) (Heparin -) 1,000 unit IVPUSH PRN PRN PRN Reason: Heparin Last Admin: 01/25/17 10:20 Dose: 1,000 unit Heparin Sodium (Porcine) (Heparin -) 5,000 unit IVPUSH PRN PRN PRN Reason: Heparin Last Admin: 01/17/17 07:41 Dose: 5,000 unit Famotidine/Sodium Chloride (Pepcid 20 Mg Premixed Ivpb -) 50 mls @ 100 mls/hr IVPB BID [facility] Last Admin: 01/25/17 09:06 Dose: 100 mls/hr Fluconazole (Diflucan 200 Mg/D5w Premixed Ivpb -) 100 mls @ 100 mls/hr IVPB DAILY [facility] Last Admin: 01/25/17 09:07 Dose: 100 mls/hr Heparin Sodium/Dextrose (Heparin Infusion -) 500 mls @ 20 mls/hr IVPB TITR DAVID ; 1,000 UNITS/HR PRN Reason: Protocol Last Titration: 01/25/17 09:09 Dose: 1,000 units/hr Meropenem 1 gm/ Dextrose 100 mls @ 100 mls/hr IVPB BID@0500,1700 DAVID PRN Reason: Protocol Last Admin: 01/25/17 05:18 Dose: 100 mls/hr Propofol (Diprivan -) 100 mls @ 3.486 mls/hr IVPB TITR DAVID; 5 MCG/KG/MIN PRN Reason: Protocol Last Admin: 01/25/17 09:08 Dose: Not Given Metoprolol Tartrate (Lopressor Injection -) 5 mg IVPB Q8H-IV DAVID Last Admin: 01/25/17 09:06 Dose: 5 mg - Objective Vital Signs: Vital Signs Temperature 98.3 F 01/25/17 08:00 Pulse Rate 78 01/25/17 12:03 Respiratory Rate 20 01/25/17 12:25 Blood Pressure 120/41 01/25/17 12:03 O2 Sat by Pulse Oximetry (%) 99 01/25/17 10:15 Constitutional: Yes: Other Cardiovascular: Yes: Pulse Irregular, S1, S2 Respiratory: Yes: Intubated, Mechanically Ventilated Gastrointestinal: Yes: Other (absent bowel sounds colostomy) Musculoskeletal: Yes: Other Extremities: Yes: Other Neurological: Yes: Other Psychiatric: Yes: Other Labs: CBC, BMP 01/25/17 05:35 01/25/17 05:35 INR, PTT INR 1.41 (0.82-1.09) H 01/17/17 05:30 Assessment/Plan 81 y/o old with multiple medical problems with perforated bowel post op Perforated bowel Peritonitis Sepsis s/p ex-lap with sigmoid resection, colostomy Resolving JG Lactic acidosis AF h/o DVT/PE patients wbc has come down plan continue abx cx report noted conitnue current abx for now patient continues to be critical cc tim40 min
--- NOTE | 2017-01-25 14:20 | PN ---
Progress Note (short form) - Note Progress Note: 81 year female with no obvious in status. H/O severe LV dysfuntion, ruptured diverticulitis S/P colostomy,abdominal abscess,respiratory failure,VPBs. No change in status,hemodynamically is stable,remains sedated.. Active Medications Acetaminophen (Ofirmev Injection -) 1,000 mg IVPB Q6H PRN PRN Reason: FEVER Last Admin: 01/24/17 16:32 Dose: 1,000 mg Albuterol/Ipratropium (Duoneb -) 1 amp NEB QIDR [facility] Last Admin: 01/25/17 11:57 Dose: 1 amp Chlorhexidine Gluconate (Hibiclens For Decolonization -) 1 applic TP HS [facility] Last Admin: 01/24/17 21:55 Dose: 1 applic Heparin Sodium (Porcine) (Heparin -) 1,000 unit IVPUSH PRN PRN PRN Reason: Heparin Last Admin: 01/25/17 10:20 Dose: 1,000 unit Heparin Sodium (Porcine) (Heparin -) 5,000 unit IVPUSH PRN PRN PRN Reason: Heparin Last Admin: 01/17/17 07:41 Dose: 5,000 unit Famotidine/Sodium Chloride (Pepcid 20 Mg Premixed Ivpb -) 50 mls @ 100 mls/hr IVPB BID [facility] Last Admin: 01/25/17 09:06 Dose: 100 mls/hr Fluconazole (Diflucan 200 Mg/D5w Premixed Ivpb -) 100 mls @ 100 mls/hr IVPB DAILY [facility] Last Admin: 01/25/17 09:07 Dose: 100 mls/hr Heparin Sodium/Dextrose (Heparin Infusion -) 500 mls @ 20 mls/hr IVPB TITR DAVID ; 1,000 UNITS/HR PRN Reason: Protocol Last Titration: 01/25/17 09:09 Dose: 1,000 units/hr Meropenem 1 gm/ Dextrose 100 mls @ 100 mls/hr IVPB BID@0500,1700 DAVID PRN Reason: Protocol Last Admin: 01/25/17 05:18 Dose: 100 mls/hr Propofol (Diprivan -) 100 mls @ 3.486 mls/hr IVPB TITR DAVID; 5 MCG/KG/MIN PRN Reason: Protocol Last Admin: 08/13/17 09:08 Dose: Not Given Metoprolol Tartrate (Lopressor Injection -) 5 mg IVPB Q8H-IV DAVID Last Admin: 01/25/17 09:06 Dose: 5 mg O:Sedated and Intubated. Vital Signs - 8 hr 01/25/17 01/25/17 01/25/17 06:38 08:00 08:14 Temperature 98.3 F Pulse Rate 76 Respiratory 20 17 20 Rate Blood Pressure 119/90 O2 Sat by Pulse Oximetry (%) 01/25/17 01/25/17 01/25/17 09:00 09:06 10:00 Temperature Pulse Rate 83 75 Respiratory 17 18 Rate Blood Pressure 119/91 110/46 O2 Sat by Pulse 98 Oximetry (%) 01/25/17 01/25/17 01/25/17 10:15 12:03 12:25 Temperature Pulse Rate 74 78 Respiratory 18 19 20 Rate Blood Pressure 120/41 O2 Sat by Pulse 97 Oximetry (%) 01/25/17 13:59 Temperature Pulse Rate 79 Respiratory 21 Rate Blood Pressure 91/75 O2 Sat by Pulse Oximetry (%) NECK: NO JVD,+HJR, carotids 1+ HEART: Heart sounds are diastant, no murmuror gallops were appreciated. LUNGS: Decreased breath sounds at both bases. ABDOMEN.Not examined. EXT: 2+bilateral ankle edema CBC, BMP 01/25/17 05:35 01/25/17 05:35 1. Severe LV dysfunction. 2. Abdominal abscess. 3. Ruptured diverticulits. 4. Colostomy. 5. Anemia. CBC, BMP 01/25/17 05:35 01/25/17 05:35 6. Abdominal fluid collection secondary to abscess. 7. CLBBB. 8. Ventricular premature beats. 9. Respiratory failure. 10.Abdominal fluid collection. 11. Anemia. 12. Renal insufficiency. 01/24/17 09:35 01/24/17 09:35 Recommendation: 1. F/O CBC and BMP. 2. Continue IV betablockers. Prognosis: critical.
--- NOTE | 2017-01-25 16:45 | PN ---
Progress Note, Physician History of Present Illness: Lethargic - Current Medication List Current Medications: Active Medications Acetaminophen (Ofirmev Injection -) 1,000 mg IVPB Q6H PRN PRN Reason: FEVER Last Admin: 01/24/17 16:32 Dose: 1,000 mg Albuterol/Ipratropium (Duoneb -) 1 amp NEB QIDR DAVID Last Admin: 01/25/17 11:57 Dose: 1 amp Chlorhexidine Gluconate (Hibiclens For Decolonization -) 1 applic TP HS DAVID Last Admin: 01/24/17 21:55 Dose: 1 applic Heparin Sodium (Porcine) (Heparin -) 1,000 unit IVPUSH PRN PRN PRN Reason: Heparin Last Admin: 01/25/17 10:20 Dose: 1,000 unit Heparin Sodium (Porcine) (Heparin -) 5,000 unit IVPUSH PRN PRN PRN Reason: Heparin Last Admin: 01/17/17 07:41 Dose: 5,000 unit Famotidine/Sodium Chloride (Pepcid 20 Mg Premixed Ivpb -) 50 mls @ 100 mls/hr IVPB BID [facility] Last Admin: 01/25/17 09:06 Dose: 100 mls/hr Fluconazole (Diflucan 200 Mg/D5w Premixed Ivpb -) 100 mls @ 100 mls/hr IVPB DAILY [facility] Last Admin: 01/25/17 09:07 Dose: 100 mls/hr Heparin Sodium/Dextrose (Heparin Infusion -) 500 mls @ 20 mls/hr IVPB TITR DAVID ; 1,000 UNITS/HR PRN Reason: Protocol Last Titration: 01/25/17 09:09 Dose: 1,000 units/hr Meropenem 1 gm/ Dextrose 100 mls @ 100 mls/hr IVPB BID@0500,1700 DAVID PRN Reason: Protocol Last Admin: 01/25/17 05:18 Dose: 100 mls/hr Propofol (Diprivan -) 100 mls @ 3.486 mls/hr IVPB TITR DAVID; 5 MCG/KG/MIN PRN Reason: Protocol Last Admin: 01/25/17 09:08 Dose: Not Given Metoprolol Tartrate (Lopressor Injection -) 5 mg IVPB Q8H-IV DAVID Last Admin: 01/25/17 09:06 Dose: 5 mg - Objective Vital Signs: Vital Signs Temperature 98.3 F 01/25/17 08:00 Pulse Rate 79 01/25/17 13:59 Respiratory Rate 20 01/25/17 14:33 Blood Pressure 91/75 01/25/17 13:59 O2 Sat by Pulse Oximetry (%) 99 01/25/17 10:15 Constitutional: Yes: Calm Eyes: Yes: WNL HENT: Yes: WNL Neck: Yes: WNL Cardiovascular: Yes: Pulse Irregular Respiratory: Yes: Mechanically Ventilated Gastrointestinal: Yes: Normal Bowel Sounds ...Rectal Exam: Yes: Deferred Genitourinary: Yes: Jennings Present Edema: LUE: 1+, RUE: 1+, LLE: 1+, RLE: 1+ Neurological: Yes: Lethargy Labs: CBC, BMP 01/25/17 05:35 01/25/17 05:35 INR, PTT INR 1.41 (0.82-1.09) H 01/17/17 05:30 Assessment/Plan Continue same trt
[2017-01-25] MEDS: HEPARIN INFUSION - 500 ML IVPB SCH (17:04)
[2017-01-25] MEDS: CHLORHEXIDINE GLUCONATE 4% CLEANSER FOR DECOLONIZATION TP SCH (21:41)
[2017-01-26] MEDS: HEPARIN NA (PORCINE) 5,000 UNITS/ML 1ML VIAL IVPUSH PRN
[2017-01-26] MEDS: METOPROLOL TARTRATE 5 MG/5 ML VIAL IVPB SCH ×3 (02:40→17:17)
[2017-01-26] MEDS: MEROPENEM 1 GM in DEXTROSE 5%-WATER - 100 ML IVPB SCH ×2 (03:59→17:13)
[2017-01-26] MEDS: PROPOFOL 100 ML IVPB SCH ×2 (04:10→10:44)
[2017-01-26] MEDS ORDERED: FUROSEMIDE 100 MG/10 ML INJECTABLE VIAL ONE (06:36)
[2017-01-26] MEDS: ALBUTEROL SO4 2.5/IPRATROPIUM 0.5 INH SOL 3 ML VIAL.NEB. NEB SCH ×4 (06:41→23:17)
[2017-01-26] MEDS ORDERED: FUROSEMIDE INJECTION 100 MG in DEXTROSE 5%-WATER - 90 ML IVPB SCH (06:45)
[2017-01-26 06:51] LABS: MCH 32.1 pg (25.7-33.7); MCHC 31.6 g/dl (32.0-36.0); MEAN CELL VOLUME 101.6 fl (80-96); MEAN PLT VOLUME 9.8 fl (7.5-11.1); PLATELET COUNT 286 K/MM3 (134-434); RDW 15.6 % (11.6-15.6); WHITE BLOOD COUNT 19.6 K/mm3 (4.0-10.0)
[2017-01-26 07:23] LABS: ALBUMIN 1.5 g/dl (3.4-5.0); ALK PHOS 100 U/L (45-117); ANION GAP 9 (8-16); BILIRUBIN,TOTAL 0.5 mg/dL (0.2-1.0); CALCIUM 8.7 mg/dL (8.5-10.1); CO2 25 mmol/L (21-32); CREATININE 2.2 mg/dL (0.55-1.02); GLUCOSE,RANDOM 131 mg/dL (74-106); MAGNESIUM 2.3 mg/dL (1.8-2.4); PHOSPHOROUS 6.5 mg/dL (2.5-4.9); SGOT/AST 28 U/L (15-37); SGPT/ALT 14 U/L (12-78); TOT PROT 4.9 g/dl (6.4-8.2)
[2017-01-26 07:34] LABS: ARTERIAL BLOOD GAS BASE EXCESS -5.5 meq/l (-2-2); ARTERIAL BLOOD GAS HCO3 21.8 meq/L (22-26); ARTERIAL BLOOD GAS PO2 98.4 mmHg (68-100); ARTERIAL BLOOD GAS pH 7.21 (7.35-7.45)
[2017-01-26 07:41] LABS: ALLENS TEST POSITIVE; ART PUNCT SITE RIGHT BRACHIAL; LPM/O2% 70%; PT. ON O2? YES
[2017-01-26 07:42] LABS: MECH. VENT. Y; TYPE OF O2 VENT; VENT RATE 18; VT/PRESS 450
[2017-01-26] MEDS: FAMOTIDINE 20 MG/50 ML IVPB 50 ML IVPB SCH ×2 (09:19→21:43)
[2017-01-26] MEDS: FLUCONAZOLE 200 MG/D5W 100 ML IVPB SCH (09:20)
--- NOTE | 2017-01-26 09:50 | PN ---
Progress Note, Physician History of Present Illness: Patient developed respiratory distress and hypotensive last night - Current Medication List Current Medications: Active Medications Acetaminophen (Ofirmev Injection -) 1,000 mg IVPB Q6H PRN PRN Reason: FEVER Last Admin: 01/24/17 16:32 Dose: 1,000 mg Albuterol/Ipratropium (Duoneb -) 1 amp NEB QIDR DAVID Last Admin: 01/26/17 06:41 Dose: 1 amp Chlorhexidine Gluconate (Hibiclens For Decolonization -) 1 applic TP HS [facility] Last Admin: 01/25/17 21:41 Dose: 1 applic Heparin Sodium (Porcine) (Heparin -) 1,000 unit IVPUSH PRN PRN PRN Reason: Heparin Last Admin: 01/26/17 00:00 Dose: 1,000 unit Heparin Sodium (Porcine) (Heparin -) 5,000 unit IVPUSH PRN PRN PRN Reason: Heparin Last Admin: 01/17/17 07:41 Dose: 5,000 unit Famotidine/Sodium Chloride (Pepcid 20 Mg Premixed Ivpb -) 50 mls @ 100 mls/hr IVPB BID [facility] Last Admin: 01/26/17 09:19 Dose: 100 mls/hr Fluconazole (Diflucan 200 Mg/D5w Premixed Ivpb -) 100 mls @ 100 mls/hr IVPB DAILY [facility] Last Admin: 01/26/17 09:20 Dose: 100 mls/hr Heparin Sodium/Dextrose (Heparin Infusion -) 500 mls @ 20 mls/hr IVPB TITR DAVID ; 1,000 UNITS/HR PRN Reason: Protocol Last Titration: 01/25/17 19:07 Dose: 1,100 units/hr Meropenem 1 gm/ Dextrose 100 mls @ 100 mls/hr IVPB BID@0500,1700 DAVID PRN Reason: Protocol Last Admin: 01/26/17 03:59 Dose: 100 mls/hr Propofol (Diprivan -) 100 mls @ 3.486 mls/hr IVPB TITR DAVID; 5 MCG/KG/MIN PRN Reason: Protocol Last Titration: 01/26/17 06:30 Dose: 20 mcg/kg/min Furosemide 100 mg/ Dextrose 100 mls @ 5 mls/hr IVPB TITR DAVID PRN Reason: 5 MG/HR Metoprolol Tartrate (Lopressor Injection -) 5 mg IVPB Q8H-IV DAVID Last Admin: 01/26/17 09:20 Dose: Not Given - Objective Vital Signs: Vital Signs Temperature 99.7 F H 01/26/17 06:00 Pulse Rate 86 01/26/17 08:00 Respiratory Rate 21 01/26/17 08:00 Blood Pressure 102/55 01/26/17 08:00 O2 Sat by Pulse Oximetry (%) 98 01/26/17 07:42 Constitutional: Yes: Calm Eyes: Yes: WNL HENT: Yes: WNL Neck: Yes: Supple Cardiovascular: Yes: Pulse Irregular Respiratory: Yes: Mechanically Ventilated Gastrointestinal: Yes: Hypoactive Bowel Sounds ...Rectal Exam: Yes: Deferred Genitourinary: Yes: Oliguria Breast(s): Yes: WNL Edema: Yes Edema: LUE: 1+, RUE: 1+, LLE: 1+, RLE: 1+ Neurological: Yes: Other (comatosed) Labs: CBC, BMP 01/26/17 05:45 01/26/17 05:45 INR, PTT INR 1.41 (0.82-1.09) H 01/17/17 05:30 - ....Imaging X-ray: Report Reviewed Assessment/Plan Will discuss with ICU atteding Will talk to family
[2017-01-26] MEDS ORDERED: NOREPINEPHRINE BITARTRATE 4 MG/4 ML ML IV ONE ×2 (10:12→23:53)
--- NOTE | 2017-01-26 10:44 | PN ---
Progress Note (short form) - Note Progress Note: Attending Surgeon POD #17 Remains in ICU intubated and sedated on vent; did well over the w/e; however this AM weaning had stopped and she has required pressors for BP support; tolertaing TF's BP ~ 90 systolic abdomen-soft; NT; wound no change; ostomy viable and functioning; drain output noted labs noted IMP: s/p Hartmans for perforated diverticulitis PLAN: Continue as per ICU; prognosis remains poor which family is aware of; case d/w Dr. Anglin; to discuss DNR w/ family. Will consider f/u CT scan once stable againprobably later in the week. Taqueria Prado MD FACS
[2017-01-26] MEDS: NOREPINEPHRINE BITARTRATE 8,000 MCG in DEXTROSE 5%-WATER - 492 ML IV SCH (10:45)
[2017-01-26] MEDS ORDERED: HEMOQUE TEST 1 EACH EACH ONE (12:07)
--- NOTE | 2017-01-26 13:29 | PN ---
Teaching Attending Note Name of Resident: Arya Cook ATTENDING PHYSICIAN STATEMENT I saw and evaluated the patient. I reviewed the resident's note and discussed the case with the resident. I agree with the resident's findings and plan as documented. SUBJECTIVE: Patient seen and examined at bedside. Remains intubated. Now on Propofol for vent synchrony. Started on NE for hemodynamic support. AC Mode of vent. Fio2 needed to be increased to 70% and PEEP to 12. (+) Dark liquid stools noted in ostomy, tolerating feeds. (+) infected looking material left JAMES Intake & Output 01/23/17 01/24/17 01/25/17 01/26/17 23:59 23:59 23:59 23:59 Intake Total 3262 2021 2275 1066 Output Total 7689 484 5171 640 Balance 1707 1156 1005 426 Weight 254 lb 10.142 oz 256 lb 2.834 oz 258 lb 117 lb 1.6 oz Last Vital Signs Temp Pulse Resp BP Pulse Ox 99.7 F H 97 H 22 79/52 99 01/26/17 06:00 01/26/17 10:45 01/26/17 11:41 01/26/17 10:45 01/26/17 10:16 Active Medications Acetaminophen (Ofirmev Injection -) 1,000 mg IVPB Q6H PRN PRN Reason: FEVER Last Admin: 01/24/17 16:32 Dose: 1,000 mg Albuterol/Ipratropium (Duoneb -) 1 amp NEB QIDR [facility] Last Admin: 01/26/17 11:03 Dose: 1 amp Chlorhexidine Gluconate (Hibiclens For Decolonization -) 1 applic TP HS [facility] Last Admin: 01/25/17 21:41 Dose: 1 applic Heparin Sodium (Porcine) (Heparin -) 1,000 unit IVPUSH PRN PRN PRN Reason: Heparin Last Admin: 01/26/17 00:00 Dose: 1,000 unit Heparin Sodium (Porcine) (Heparin -) 5,000 unit IVPUSH PRN PRN PRN Reason: Heparin Last Admin: 01/17/17 07:41 Dose: 5,000 unit Famotidine/Sodium Chloride (Pepcid 20 Mg Premixed Ivpb -) 50 mls @ 100 mls/hr IVPB BID [facility] Last Admin: 01/26/17 09:19 Dose: 100 mls/hr Fluconazole (Diflucan 200 Mg/D5w Premixed Ivpb -) 100 mls @ 100 mls/hr IVPB DAILY [facility] Last Admin: 01/26/17 09:20 Dose: 100 mls/hr Heparin Sodium/Dextrose (Heparin Infusion -) 500 mls @ 20 mls/hr IVPB TITR DAVID ; 1,000 UNITS/HR PRN Reason: Protocol Last Titration: 01/25/17 19:07 Dose: 1,100 units/hr Meropenem 1 gm/ Dextrose 100 mls @ 100 mls/hr IVPB BID@0500,1700 DAVID PRN Reason: Protocol Last Admin: 01/26/17 03:59 Dose: 100 mls/hr Propofol (Diprivan -) 100 mls @ 3.486 mls/hr IVPB TITR DAVID; 5 MCG/KG/MIN PRN Reason: Protocol Last Admin: 01/26/17 10:44 Dose: 13.944 mls/hr Norepinephrine Bitartrate 8, (000 mcg/ Dextrose) 500 mls @ 18.75 mls/hr IV TITR DAVID; 5 MCG/MIN PRN Reason: Protocol Last Admin: 01/26/17 10:45 Dose: 18.75 mls/hr Metoprolol Tartrate (Lopressor Injection -) 5 mg IVPB Q8H-IV DAVID Last Admin: 01/26/17 09:20 Dose: Not Given Constitutional: Yes: Intubated, sedated Eyes: Yes: (-) Pallor (-) Icterus HENT: Yes: Normocephalic Neck: Yes: Supple, Trachea Midline Cardiovascular: Yes: Tachycardia, Pulse Irregular, S1, S2 Respiratory: Yes: Bilateral scattered Rhonchi and crackles Gastrointestinal: Yes: Soft, (+) BS, brownish discharge from drain, incision C/D /I, appropriately tender, ostomy pink with some output Genitourinary: Yes: Jennings Present Extremities: Yes: WNL Edema: No Integumentary: Yes: Tenting Wound/Incision: Yes: Clean/Dry Neurological: Yes: Alert, non-focal Psychiatric: Yes: Cooperative Labs: Laboratory Results - last 24 hr 01/25/17 01/25/17 01/26/17 17:10 23:25 05:45 WBC RBC Hgb Hct MCV MCH MCHC RDW Plt Count MPV PTT (Actin FS) 45.3 H 46.0 H 54.8 H Puncture Site ABG pH ABG pCO2 at Pt Temp ABG pO2 at Pt Temp ABG HCO3 ABG O2 Sat (Measured) ABG O2 Content ABG Base Excess Jose A Test O2 Delivery Device Oxygen Flow Rate Vent Mode Vent Rate Mechanical Rate PEEP Pressure Support Vent Sodium Potassium Chloride Carbon Dioxide Anion Gap BUN Creatinine Creat Clearance w eGFR Random Glucose Calcium Phosphorus Magnesium Total Bilirubin AST ALT Alkaline Phosphatase Total Protein Albumin 01/26/17 01/26/17 01/26/17 05:45 05:45 07:30 WBC 19.6 H D RBC 2.60 L Hgb 8.3 L Hct 26.4 L MCV 101.6 H MCH 32.1 MCHC 31.6 L RDW 15.6 Plt Count 286 MPV 9.8 PTT (Actin FS) Puncture Site Right brachial ABG pH 7.21 L* ABG pCO2 at Pt Temp 56.5 H ABG pO2 at Pt Temp 98.4 ABG HCO3 21.8 L ABG O2 Sat (Measured) 97.0 ABG O2 Content 11.8 L ABG Base Excess -5.5 L Jose A Test Positive O2 Delivery Device Vent Oxygen Flow Rate 70% Vent Mode A/c Vent Rate 18 Mechanical Rate Y PEEP 12.0 Pressure Support Vent 450 Sodium 138 Potassium 4.7 D Chloride 104 Carbon Dioxide 25 Anion Gap 9 BUN 59 H Creatinine 2.2 H Creat Clearance w eGFR 21.37 Random Glucose 131 H Calcium 8.7 Phosphorus 6.5 H D Magnesium 2.3 Total Bilirubin 0.5 D AST 28 ALT 14 Alkaline Phosphatase 100 Total Protein 4.9 L Albumin 1.5 L Assessment/Plan Intra-abdominal collection Perforated diverticulitis S/P Sigmoid resection with colostomy. 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 component of BALJIT -> Time period too long) Vent settings adjusted Monitor drainage Strict I&O Sedate for vent synchrony Would hold diuretics for now Continue feeds as tolerated IV Heparin SBTs as tolerated Family discussions for [facility] Dr Anglin Critical Care Time Total Critical Care Time: 35 Critical Care Statement: The care of this patient involved high complexity decision making to prevent further life threatening deterioration of the patient 's condition and/or to evaluate & treat vital organ system(s) failure or risk of failure.
--- NOTE | 2017-01-26 13:36 | PN ---
Progress Note, Physician History of Present Illness: patient sedated and intubated was hypotensive this morning requiring levophed gtt to be be started remains afebrile family at bedside case discussed in detail all questions answered - Current Medication List Current Medications: Active Medications Acetaminophen (Ofirmev Injection -) 1,000 mg IVPB Q6H PRN PRN Reason: FEVER Last Admin: 01/24/17 16:32 Dose: 1,000 mg Albuterol/Ipratropium (Duoneb -) 1 amp NEB QIDR [facility] Last Admin: 01/26/17 11:03 Dose: 1 amp Chlorhexidine Gluconate (Hibiclens For Decolonization -) 1 applic TP HS [facility] Last Admin: 01/25/17 21:41 Dose: 1 applic Heparin Sodium (Porcine) (Heparin -) 1,000 unit IVPUSH PRN PRN PRN Reason: Heparin Last Admin: 01/26/17 00:00 Dose: 1,000 unit Heparin Sodium (Porcine) (Heparin -) 5,000 unit IVPUSH PRN PRN PRN Reason: Heparin Last Admin: 01/17/17 07:41 Dose: 5,000 unit Famotidine/Sodium Chloride (Pepcid 20 Mg Premixed Ivpb -) 50 mls @ 100 mls/hr IVPB BID [facility] Last Admin: 01/26/17 09:19 Dose: 100 mls/hr Fluconazole (Diflucan 200 Mg/D5w Premixed Ivpb -) 100 mls @ 100 mls/hr IVPB DAILY [facility] Last Admin: 01/26/17 09:20 Dose: 100 mls/hr Heparin Sodium/Dextrose (Heparin Infusion -) 500 mls @ 20 mls/hr IVPB TITR DAVID ; 1,000 UNITS/HR PRN Reason: Protocol Last Titration: 01/25/17 19:07 Dose: 1,100 units/hr Meropenem 1 gm/ Dextrose 100 mls @ 100 mls/hr IVPB BID@0500,1700 [facility]ID PRN Reason: Protocol Last Admin: 01/26/17 03:59 Dose: 100 mls/hr Propofol (Diprivan -) 100 mls @ 3.486 mls/hr IVPB TITR DAVID; 5 MCG/KG/MIN PRN Reason: Protocol Last Admin: 01/26/17 10:44 Dose: 13.944 mls/hr Norepinephrine Bitartrate 8, (000 mcg/ Dextrose) 500 mls @ 18.75 mls/hr IV TITR DAVID; 5 MCG/MIN PRN Reason: Protocol Last Admin: 01/26/17 10:45 Dose: 18.75 mls/hr Metoprolol Tartrate (Lopressor Injection -) 5 mg IVPB Q8H-IV [facility]ID Last Admin: 01/26/17 09:20 Dose: Not Given - Objective Vital Signs: Vital Signs Temperature 99.7 F H 01/26/17 06:00 Pulse Rate 97 H 01/26/17 10:45 Respiratory Rate 22 01/26/17 11:41 Blood Pressure 79/52 01/26/17 10:45 O2 Sat by Pulse Oximetry (%) 99 01/26/17 10:16 Constitutional: Yes: Other (sedated) Eyes: Yes: Other ( both are sluggishly reactive to light) HENT: Yes: Normocephalic Neck: Yes: Supple, Trachea Midline Cardiovascular: Yes: Tachycardia, Pulse Irregular, S1, S2 Respiratory: Yes: Other (scattered crackles less so than yesterday) Gastrointestinal: Yes: Soft, +Bowel Sounds, Other (incision C/D/I abdomen soft appropriately tender ostomy pink with good function. JAMES drain with dark black murky drainage) Genitourinary: Yes: Jennings Present Extremities: Yes: WNL Edema: yes bilateral upper and lower extremity edema Wound/Incision: Yes: Clean/Dry Neurological: Yes: sedated Labs: CBC, BMP 01/26/17 05:45 01/26/17 05:45 INR, PTT INR 1.41 (0.82-1.09) H 01/17/17 05:30 - ....Imaging Chest X-ray: Report Reviewed, Image Reviewed Assessment/Plan 81F with a history of diverticulosis presents to the ED with perforated diverticulitis now post op day 3 s/p sigmoid resection with colostomy. perforated diverticulitis: patient is currently septic with worsening leukocystosis and tachycardia. Source is likely from the abdomen. possible there is another collection of abscesses cultures noted Will get another CT scan to rule out collection, abscess or any other intra- abdominal process may need IR drainage vs surgical intervention will consider culturing JAMES drainage as it is dark and murky now continue meropenem and diflucan per ID. infectious disease to possible give gentamicin f/u ID central line for CVP monitoring placed day 3 of central line pain control PRN respiratory acidosis with superimposed metabolic acidosis: Increase respiratory rate to decrease carbon dioxide levels repeat ABG now acute on chronic respiratory failure:post-operative respiratory failure patient with increased ventilatory requirements repeat ABG now Post-op NSTEMI: cardiology consult appreciated likely from a combination of demand and decreased clearance from acute kidney injury on heparin gtt systolic CHF with severely reduced EF: monitor for the need for diuresis daily cardiology follow up monitor CVP lasix gtt when off pressors history of DVT/PE: coumadin on hold for now on heparin gtt monitor PTT per protocol JG: creatinine 2.2-might be new baseline nephrology consult appreciated continue to trend lasix gtt when off pressors Afib: continue rate control with metoprolol 5mg IV q8h PRN hold while on pressors continue heparin gtt HLD: not on medications at this time will restart lipitor at home dose when appropriate FEN: stop IVF no electrolyte issues tube feeds @ goal PPx: SCDs on heparin gtt for full dose anticoagulation Pepcid PT consult when able to participate CCTime 35 min Palliative care consult for goals of care patients daughter and son at bedside. case discussed with family. updates given all questions answered. discussed DNR with the family.
--- NOTE | 2017-01-26 13:41 | PN ---
Progress Note, Physician History of Present Illness: patient was doing well this morning events noted from the morning patient has dropped her blood pressure patient showing all signs of septic shock - Current Medication List Current Medications: Active Medications Acetaminophen (Ofirmev Injection -) 1,000 mg IVPB Q6H PRN PRN Reason: FEVER Last Admin: 01/24/17 16:32 Dose: 1,000 mg Albuterol/Ipratropium (Duoneb -) 1 amp NEB QIDR [facility]ID Last Admin: 01/26/17 11:03 Dose: 1 amp Chlorhexidine Gluconate (Hibiclens For Decolonization -) 1 applic TP HS [facility] Last Admin: 01/25/17 21:41 Dose: 1 applic Heparin Sodium (Porcine) (Heparin -) 1,000 unit IVPUSH PRN PRN PRN Reason: Heparin Last Admin: 01/26/17 00:00 Dose: 1,000 unit Heparin Sodium (Porcine) (Heparin -) 5,000 unit IVPUSH PRN PRN PRN Reason: Heparin Last Admin: 01/17/17 07:41 Dose: 5,000 unit Famotidine/Sodium Chloride (Pepcid 20 Mg Premixed Ivpb -) 50 mls @ 100 mls/hr IVPB BID [facility] Last Admin: 01/26/17 09:19 Dose: 100 mls/hr Fluconazole (Diflucan 200 Mg/D5w Premixed Ivpb -) 100 mls @ 100 mls/hr IVPB DAILY [facility] Last Admin: 01/26/17 09:20 Dose: 100 mls/hr Heparin Sodium/Dextrose (Heparin Infusion -) 500 mls @ 20 mls/hr IVPB TITR DAVID ; 1,000 UNITS/HR PRN Reason: Protocol Last Titration: 01/25/17 19:07 Dose: 1,100 units/hr Meropenem 1 gm/ Dextrose 100 mls @ 100 mls/hr IVPB BID@0500,1700 DAVID PRN Reason: Protocol Last Admin: 01/26/17 03:59 Dose: 100 mls/hr Propofol (Diprivan -) 100 mls @ 3.486 mls/hr IVPB TITR DAVID; 5 MCG/KG/MIN PRN Reason: Protocol Last Admin: 01/26/17 10:44 Dose: 13.944 mls/hr Norepinephrine Bitartrate 8, (000 mcg/ Dextrose) 500 mls @ 18.75 mls/hr IV TITR DAVID; 5 MCG/MIN PRN Reason: Protocol Last Admin: 01/26/17 10:45 Dose: 18.75 mls/hr Metoprolol Tartrate (Lopressor Injection -) 5 mg IVPB Q8H-IV [facility] Last Admin: 01/26/17 09:20 Dose: Not Given - Objective Vital Signs: Vital Signs Temperature 99.7 F H 01/26/17 06:00 Pulse Rate 97 H 01/26/17 10:45 Respiratory Rate 22 01/26/17 11:41 Blood Pressure 79/52 01/26/17 10:45 O2 Sat by Pulse Oximetry (%) 99 01/26/17 10:16 Constitutional: Yes: Other Cardiovascular: Yes: Pulse Irregular, Other Respiratory: Yes: Intubated, Mechanically Ventilated Gastrointestinal: Yes: Other Musculoskeletal: Yes: Other Extremities: Yes: Other Wound/Incision: Yes: Other Neurological: Yes: Other Labs: CBC, BMP 01/26/17 05:45 01/26/17 05:45 INR, PTT INR 1.41 (0.82-1.09) H 01/17/17 05:30 Assessment/Plan 81 y/o old with multiple medical problems with perforated bowel post op Perforated bowel Peritonitis Sepsis s/p ex-lap with sigmoid resection, colostomy Resolving JG Lactic acidosis AF h/o DVT/PE septic shock plan continue abx will do doubble gram negative coverage repeat ct scan of abd if patient has collection will need draiange patient continues to be critical cc tim40 min
[2017-01-26 15:50] LABS: ARTERIAL BLD GAS O2 SATURATION 99.5 % (90-98.9); ARTERIAL BLOOD GAS BASE EXCESS -4.8 meq/l (-2-2); ARTERIAL BLOOD GAS HCO3 21.3 meq/L (22-26)
[2017-01-26 15:52] LABS: ALLENS TEST POSITIVE; ART PUNCT SITE RIGHT BRACHIAL; LPM/O2% 70%; MECH. VENT. Y; PT. ON O2? YES; TYPE OF O2 VENT; VENT RATE 22; VT/PRESS 450
[2017-01-26 15:53] LABS: ARTERIAL BLOOD GAS pH 7.28 (7.35-7.45)
--- NOTE | 2017-01-26 16:38 | PN ---
Progress Note (short form) - Note Progress Note: Renal Follow up for JG Pt seen and examined in the ICU on Vent , 70% FiO2 on Levophed did not get Laix yesterday because of low BP remains non-oligluric Vital Signs Temperature 99.7 F H 01/26/17 06:00 Pulse Rate 97 H 01/26/17 10:45 Respiratory Rate 22 01/26/17 14:01 Blood Pressure 79/52 01/26/17 10:45 O2 Sat by Pulse Oximetry (%) 99 01/26/17 10:16 Intake & Output 01/23/17 01/24/17 01/25/17 01/26/17 23:59 23:59 23:59 23:59 Intake Total 3262 2021 2275 1066 Output Total 6189 781 5438 700 Balance 1707 1156 1005 366 Weight 254 lb 10.142 oz 256 lb 2.834 oz 258 lb 117 lb 1.6 oz Gen: intubated on vent CVS: RRR Lungs: Dec BS throughout the lung dimas Abd: soft NT/ND Ext: 2+ edema upper ext and lower ext CBC, BMP 01/26/17 05:45 01/26/17 05:45 Current Medications Acetaminophen (Ofirmev Injection -) 1,000 mg IVPB Q6H PRN PRN Reason: FEVER Last Admin: 01/24/17 16:32 Dose: 1,000 mg Albuterol/Ipratropium (Duoneb -) 1 amp NEB QIDR [facility] Last Admin: 01/26/17 11:03 Dose: 1 amp Chlorhexidine Gluconate (Hibiclens For Decolonization -) 1 applic TP HS [facility] Last Admin: 01/25/17 21:41 Dose: 1 applic Heparin Sodium (Porcine) (Heparin -) 1,000 unit IVPUSH PRN PRN PRN Reason: Heparin Last Admin: 01/26/17 00:00 Dose: 1,000 unit Heparin Sodium (Porcine) (Heparin -) 5,000 unit IVPUSH PRN PRN PRN Reason: Heparin Last Admin: 01/17/17 07:41 Dose: 5,000 unit Famotidine/Sodium Chloride (Pepcid 20 Mg Premixed Ivpb -) 50 mls @ 100 mls/hr IVPB BID [facility] Last Admin: 01/26/17 09:19 Dose: 100 mls/hr Fluconazole (Diflucan 200 Mg/D5w Premixed Ivpb -) 100 mls @ 100 mls/hr IVPB DAILY [facility] Last Admin: 01/26/17 09:20 Dose: 100 mls/hr Heparin Sodium/Dextrose (Heparin Infusion -) 500 mls @ 20 mls/hr IVPB TITR [facility]ID ; 1,000 UNITS/HR PRN Reason: Protocol Last Titration: 01/25/17 19:07 Dose: 1,100 units/hr Meropenem 1 gm/ Dextrose 100 mls @ 100 mls/hr IVPB BID@0500,1700 DAVID PRN Reason: Protocol Last Admin: 01/26/17 03:59 Dose: 100 mls/hr Propofol (Diprivan -) 100 mls @ 3.486 mls/hr IVPB TITR DAVID; 5 MCG/KG/MIN PRN Reason: Protocol Last Admin: 01/26/17 10:44 Dose: 13.944 mls/hr Norepinephrine Bitartrate 8, (000 mcg/ Dextrose) 500 mls @ 18.75 mls/hr IV TITR DAVID; 5 MCG/MIN PRN Reason: Protocol Last Admin: 01/26/17 10:45 Dose: 18.75 mls/hr Piperacillin Sod/Tazobactam Sod (Zosyn 2.25gm Ivpb (Pre-Docked)) 50 mls @ 100 mls/hr IVPB Q6H-IV [facility]ID PRN Reason: Protocol Metoprolol Tartrate (Lopressor Injection -) 5 mg IVPB Q8H-IV [facility] Last Admin: 01/26/17 09:20 Dose: Not Given Sevelamer Carbonate (Renvela Powder Packet -) 0.8 gm NGT TIDCM DAVID A/P 81 year old woman with PMhx of CKD? (Atrophic Kidney seen on US which is a chronic finding), Diverticulosis, DVT/PE on Warfarin, Hypertension who presented with Abd pain and found to have perforated bowel with diverticulitis s /p bowel resection with colostomy with JG with Cr of 2. #Non-oliguric acute kidney injury in likely underlying CKD urine studies consistent with preserved tubular function pt remains non-oliguric but is grossly volume overloaded given poor LVEF, pt likely with poor cardiac output leading to renal hypoperfusion agree with IV lasix gtt with goal net negative I and O Trend BUN/cr and electrolytes keep MAP > 65 CVP > 10 no acute indication for [employer] #Hyperphospahtemia start renvela Q8h via NGT Goal Phos < 5.5 Jair Medley DO Problem List - Problems (1) Perforated bowel Code(s): K63.1 - PERFORATION OF INTESTINE (NONTRAUMATIC) (2) Sepsis Code(s): A41.9 - SEPSIS, UNSPECIFIED ORGANISM Qualifiers: Sepsis type: sepsis due to unspecified organism Qualified Code(s): A41.9 - Sepsis, unspecified organism (3) Acute renal failure (ARF) Code(s): N17.9 - ACUTE KIDNEY FAILURE, UNSPECIFIED (4) CKD (chronic kidney disease) Code(s): N18.9 - CHRONIC KIDNEY DISEASE, UNSPECIFIED (5) Hypertension Code(s): I10 - ESSENTIAL (PRIMARY) HYPERTENSION (6) Diverticulosis Code(s): K57.90 - DVRTCLOS OF INTEST, PART UNSP, W/O PERF OR ABSCESS W/O BLEED
[2017-01-26] MEDS ORDERED: PT OWN MED DRAWER 7, Y5N ONE (17:07)
[2017-01-26] MEDS: PIPERACILLIN/TAZOB 2.25 GM 50 ML IVPB SCH ×2 (17:12→21:43)
[2017-01-26] MEDS: HEPARIN INFUSION - 500 ML IVPB SCH (17:13)
[2017-01-26] MEDS: SEVELAMER CARBONATE 0.8 GM POWDER PACKET NGT SCH (19:41)
[2017-01-26] MEDS: CHLORHEXIDINE GLUCONATE 4% CLEANSER FOR DECOLONIZATION TP SCH (21:37)
[2017-01-27] MEDS: METOPROLOL TARTRATE 5 MG/5 ML VIAL IVPB SCH ×3 (02:40→19:04)
[2017-01-27] MEDS: PIPERACILLIN/TAZOB 2.25 GM 50 ML IVPB SCH ×4 (04:10→21:34)
[2017-01-27] MEDS: MEROPENEM 1 GM in DEXTROSE 5%-WATER - 100 ML IVPB SCH ×2 (04:12→16:45)
[2017-01-27 06:26] LABS: MCH 31.9 pg (25.7-33.7); MEAN CELL VOLUME 99.8 fl (80-96); MEAN PLT VOLUME 10.1 fl (7.5-11.1); PLATELET COUNT 260 K/MM3 (134-434); RDW 15.2 % (11.6-15.6); WHITE BLOOD COUNT 12.8 K/mm3 (4.0-10.0)
[2017-01-27] MEDS: ALBUTEROL SO4 2.5/IPRATROPIUM 0.5 INH SOL 3 ML VIAL.NEB. NEB SCH ×4 (06:31→23:39)
[2017-01-27 06:46] LABS: INR 1.06 (0.82-1.09); PROTHROMBIN TIME (PATIENT) 11.7 SEC (9.98-11.88)
[2017-01-27 07:05] LABS: ALBUMIN 1.4 g/dl (3.4-5.0); ALK PHOS 83 U/L (45-117); ANION GAP 11 (8-16); BILIRUBIN,TOTAL 0.9 mg/dL (0.2-1.0); CALCIUM 8.5 mg/dL (8.5-10.1); CO2 24 mmol/L (21-32); CREATININE 2.6 mg/dL (0.55-1.02); GLUCOSE,RANDOM 97 mg/dL (74-106); MAGNESIUM 2.4 mg/dL (1.8-2.4); SGOT/AST 29 U/L (15-37); SGPT/ALT 16 U/L (12-78); TOT PROT 4.5 g/dl (6.4-8.2)
[2017-01-27 07:50] LABS: ARTERIAL BLD GAS O2 SATURATION 99.2 % (90-98.9); ARTERIAL BLOOD GAS BASE EXCESS -3.4 meq/l (-2-2); ARTERIAL BLOOD GAS HCO3 21.4 meq/L (22-26); ARTERIAL BLOOD GAS pH 7.35 (7.35-7.45)
[2017-01-27 07:56] LABS: ALLENS TEST POSITIVE; PT. ON O2? YES
[2017-01-27 07:57] LABS: LPM/O2% 60%; MECH. VENT. YES; TYPE OF O2 MEC.VENT; VENT RATE 22; VT/PRESS 450
[2017-01-27 07:58] LABS: ART PUNCT SITE LEFT RADIAL
[2017-01-27] MEDS ORDERED: PT OWN MED DRAWER 7, Y5N ONE ×2 (08:49→16:43)
[2017-01-27] MEDS: SEVELAMER CARBONATE 0.8 GM POWDER PACKET NGT SCH ×3 (08:53→16:58)
[2017-01-27] MEDS: FLUCONAZOLE 200 MG/D5W 100 ML IVPB SCH (09:55)
[2017-01-27] MEDS: FAMOTIDINE 20 MG/50 ML IVPB 50 ML IVPB SCH ×2 (09:56→21:35)
[2017-01-27] MEDS ORDERED: FUROSEMIDE 100 MG/10 ML INJECTABLE VIAL ONE ×2 (11:16→18:15)
[2017-01-27] MEDS: FUROSEMIDE INJECTION 100 MG in SODIUM CHLORIDE 40 ML IVPB SCH (11:24)
--- NOTE | 2017-01-27 11:24 | PN ---
Progress Note (short form) - Note Progress Note: Renal Follow up for JG Pt seen and examined in the ICU on Vent, sedated on propofol on FiO2 60% Levophed being tapered off making urine did not get Lasix gtt yesterday Vital Signs Temperature 98.4 F 01/27/17 10:00 Pulse Rate 83 01/27/17 10:00 Respiratory Rate 22 01/27/17 11:06 Blood Pressure 116/51 01/27/17 10:00 O2 Sat by Pulse Oximetry (%) 100 01/27/17 09:00 Intake & Output 01/24/17 01/25/17 01/26/17 01/27/17 23:59 23:59 23:59 23:59 Intake Total 202 2275 2794 776 Output Total 865 1270 880 440 Balance 1156 1005 1914 336 Weight 256 lb 2.834 oz 258 lb 257 lb 15.053 oz 272 lb 0.807 oz Gen: intubated on vent CVS: RRR Lungs: Dec BS throughout the lung dimas Abd: soft NT/ND Ext: 2+ edema upper ext and lower ext CBC, BMP 01/27/17 05:30 01/27/17 05:30 Laboratory Tests 01/23/17 01/26/17 01/27/17 05:30 05:45 05:30 Calcium 8.3 L 8.7 8.5 Phosphorus 4.2 6.5 H D 7.0 H Magnesium 2.1 2.3 2.4 Albumin 1.5 L 1.5 L 1.4 L Current Medications Acetaminophen (Ofirmev Injection -) 1,000 mg IVPB Q6H PRN PRN Reason: FEVER Last Admin: 01/24/17 16:32 Dose: 1,000 mg Albuterol/Ipratropium (Duoneb -) 1 amp NEB QIDR [facility]ID Last Admin: 01/27/17 06:31 Dose: 1 amp Chlorhexidine Gluconate (Hibiclens For Decolonization -) 1 applic TP HS [facility] Last Admin: 01/26/17 21:37 Dose: 1 applic Heparin Sodium (Porcine) (Heparin -) 1,000 unit IVPUSH PRN PRN PRN Reason: Heparin Last Admin: 01/26/17 00:00 Dose: 1,000 unit Heparin Sodium (Porcine) (Heparin -) 5,000 unit IVPUSH PRN PRN PRN Reason: Heparin Last Admin: 01/17/17 07:41 Dose: 5,000 unit Famotidine/Sodium Chloride (Pepcid 20 Mg Premixed Ivpb -) 50 mls @ 100 mls/hr IVPB BID [facility] Last Admin: 01/27/17 09:56 Dose: 100 mls/hr Fluconazole (Diflucan 200 Mg/D5w Premixed Ivpb -) 100 mls @ 100 mls/hr IVPB DAILY [facility] Last Admin: 01/27/17 09:55 Dose: 100 mls/hr Heparin Sodium/Dextrose (Heparin Infusion -) 500 mls @ 20 mls/hr IVPB TITR DAVID ; 1,000 UNITS/HR PRN Reason: Protocol Last Titration: 01/27/17 06:19 Dose: 1,200 units/hr Meropenem 1 gm/ Dextrose 100 mls @ 100 mls/hr IVPB BID@0500,1700 DAVID PRN Reason: Protocol Last Admin: 01/27/17 04:12 Dose: 100 mls/hr Propofol (Diprivan -) 100 mls @ 3.486 mls/hr IVPB TITR DAVID; 5 MCG/KG/MIN PRN Reason: Protocol Last Titration: 01/27/17 06:18 Dose: 20 mcg/kg/min Norepinephrine Bitartrate 8, (000 mcg/ Dextrose) 500 mls @ 18.75 mls/hr IV TITR DAVID; 5 MCG/MIN PRN Reason: Protocol Last Titration: 01/27/17 06:19 Dose: 2 mcg/min Piperacillin Sod/Tazobactam Sod (Zosyn 2.25gm Ivpb (Pre-Docked)) 50 mls @ 100 mls/hr IVPB Q6H-IV DAVID PRN Reason: Protocol Last Admin: 01/27/17 08:53 Dose: 100 mls/hr Furosemide 100 mg/ Sodium (Chloride) 50 mls @ 2.5 mls/hr IVPB TITR DAVID PRN Reason: 5 MG/HR Metoprolol Tartrate (Lopressor Injection -) 5 mg IVPB Q8H-IV [facility] Last Admin: 01/27/17 10:11 Dose: Not Given Sevelamer Carbonate (Renvela Powder Packet -) 0.8 gm NGT TIDCM DAVID Last Admin: 01/27/17 08:53 Dose: 0.8 gm A/P 81 year old woman with PMhx of CKD? (Atrophic Kidney seen on US which is a chronic finding), Diverticulosis, DVT/PE on Warfarin, Hypertension who presented with Abd pain and found to have perforated bowel with diverticulitis s /p bowel resection with colostomy with JG with Cr of 2. #Non-oliguric acute kidney injury in likely underlying CKD BUN/Cr worsening given gross total body volume overload and Poor LVEF will attempt diuresis in a effort to improve renal profusion Start Lasix gtt at 5mg per hour try to minimize infusions as much as possible Trend BUN/Cr and electrolytes no indication for SPECIAL E[employer] PERSON at the present time #Hyperphospahtemia start renvela Q8h via NGT Goal Phos < 5.5 #Anemia transfuse as needed per ICU protocol Jair Medley DO Problem List - Problems (1) Perforated bowel Code(s): K63.1 - PERFORATION OF INTESTINE (NONTRAUMATIC) (2) Sepsis Code(s): A41.9 - SEPSIS, UNSPECIFIED ORGANISM Qualifiers: Qualified Code(s): A41.9 - Sepsis, unspecified organism (3) Acute renal failure (ARF) Code(s): N17.9 - ACUTE KIDNEY FAILURE, UNSPECIFIED (4) CKD (chronic kidney disease) Code(s): N18.9 - CHRONIC KIDNEY DISEASE, UNSPECIFIED (5) Hypertension Code(s): I10 - ESSENTIAL (PRIMARY) HYPERTENSION (6) Diverticulosis Code(s): K57.90 - DVRTCLOS OF INTEST, PART UNSP, W/O PERF OR ABSCESS W/O BLEED
[2017-01-27] MEDS ORDERED: NOREPINEPHRINE BITARTRATE 4 MG/4 ML ML IV ONE (11:33)
[2017-01-27] MEDS: NOREPINEPHRINE BITARTRATE 8,000 MCG in DEXTROSE 5%-WATER - 492 ML IV SCH (11:39)
[2017-01-27] MEDS: PROPOFOL 100 ML IVPB SCH (11:41)
--- NOTE | 2017-01-27 12:08 | PN ---
Teaching Attending Note Name of Resident: Arya Cook ATTENDING PHYSICIAN STATEMENT I saw and evaluated the patient. I reviewed the resident's note and discussed the case with the resident. I agree with the resident's findings and plan as documented. SUBJECTIVE: Patient seen and examined at bedside. Remains intubated and sedated on Propofol. FiO2 requirement/PEEP reduced. Low dose NE for hemodynamic support. (+) Dark liquid stools noted in ostomy. (+) No change in character in JAMES material CXR : No gross change Intake & Output 01/24/17 01/25/17 01/26/17 01/27/17 23:59 23:59 23:59 23:59 Intake Total 202 2275 2794 776 Output Total 865 1270 880 440 Balance 1156 1005 1914 336 Weight 256 lb 2.834 oz 258 lb 257 lb 15.053 oz 272 lb 0.807 oz Last Vital Signs Temp Pulse Resp BP Pulse Ox 98.4 F 86 22 124/52 100 01/27/17 10:00 01/27/17 11:39 01/27/17 11:06 01/27/17 11:39 01/27/17 09:00 Active Medications Acetaminophen (Ofirmev Injection -) 1,000 mg IVPB Q6H PRN PRN Reason: FEVER Last Admin: 01/24/17 16:32 Dose: 1,000 mg Albuterol/Ipratropium (Duoneb -) 1 amp NEB QIDR [facility] Last Admin: 01/27/17 06:31 Dose: 1 amp Chlorhexidine Gluconate (Hibiclens For Decolonization -) 1 applic TP HS [facility] Last Admin: 01/26/17 21:37 Dose: 1 applic Heparin Sodium (Porcine) (Heparin -) 1,000 unit IVPUSH PRN PRN PRN Reason: Heparin Last Admin: 01/26/17 00:00 Dose: 1,000 unit Heparin Sodium (Porcine) (Heparin -) 5,000 unit IVPUSH PRN PRN PRN Reason: Heparin Last Admin: 01/17/17 07:41 Dose: 5,000 unit Famotidine/Sodium Chloride (Pepcid 20 Mg Premixed Ivpb -) 50 mls @ 100 mls/hr IVPB BID [facility] Last Admin: 01/27/17 09:56 Dose: 100 mls/hr Fluconazole (Diflucan 200 Mg/D5w Premixed Ivpb -) 100 mls @ 100 mls/hr IVPB DAILY [facility] Last Admin: 01/27/17 09:55 Dose: 100 mls/hr Heparin Sodium/Dextrose (Heparin Infusion -) 500 mls @ 20 mls/hr IVPB TITR DAVID ; 1,000 UNITS/HR PRN Reason: Protocol Last Titration: 01/27/17 06:19 Dose: 1,200 units/hr Meropenem 1 gm/ Dextrose 100 mls @ 100 mls/hr IVPB BID@0500,1700 DAVID PRN Reason: Protocol Last Admin: 01/27/17 04:12 Dose: 100 mls/hr Propofol (Diprivan -) 100 mls @ 3.486 mls/hr IVPB TITR DAVID; 5 MCG/KG/MIN PRN Reason: Protocol Last Admin: 01/27/17 11:41 Dose: 9.1 mls/hr Norepinephrine Bitartrate 8, (000 mcg/ Dextrose) 500 mls @ 18.75 mls/hr IV TITR DAVID; 5 MCG/MIN PRN Reason: Protocol Last Admin: 01/27/17 11:39 Dose: 3.75 mls/hr Piperacillin Sod/Tazobactam Sod (Zosyn 2.25gm Ivpb (Pre-Docked)) 50 mls @ 100 mls/hr IVPB Q6H-IV DAVID PRN Reason: Protocol Last Admin: 01/27/17 08:53 Dose: 100 mls/hr Furosemide 100 mg/ Sodium (Chloride) 50 mls @ 2.5 mls/hr IVPB TITR DAVID PRN Reason: 5 MG/HR Last Admin: 01/27/17 11:24 Dose: 2.5 mls/hr Metoprolol Tartrate (Lopressor Injection -) 5 mg IVPB Q8H-IV [facility] Last Admin: 01/27/17 10:11 Dose: Not Given Sevelamer Carbonate (Renvela Powder Packet -) 0.8 gm NGT TIDCM [facility] Last Admin: 01/27/17 08:53 Dose: 0.8 gm Constitutional: Yes: Intubated, sedated Eyes: Yes: (-) Pallor (-) Icterus HENT: Yes: Normocephalic Neck: Yes: Supple, Trachea Midline Cardiovascular: Yes: Tachycardia, Pulse Irregular, S1, S2 Respiratory: Yes: Bilateral scattered Rhonchi and crackles Gastrointestinal: Yes: Soft, (+) BS, brownish discharge from drain, incision C/D /I, appropriately tender, ostomy pink with some output Genitourinary: Yes: Jennings Present Extremities: Yes: WNL Edema: No Integumentary: Yes: Tenting Wound/Incision: Yes: Clean/Dry Neurological: Yes: Alert, non-focal Psychiatric: Yes: Cooperative Labs: Laboratory Results - last 24 hr 01/26/17 01/27/17 01/27/17 15:45 05:30 05:30 WBC 12.8 H D RBC 2.41 L Hgb 7.7 L Hct 24.0 L MCV 99.8 H MCH 31.9 MCHC 32.0 RDW 15.2 Plt Count 260 MPV 10.1 INR PTT (Actin FS) 58.6 H Puncture Site Right brachial ABG pH 7.28 L ABG pCO2 at Pt Temp 46.9 H ABG pO2 at Pt Temp 188.0 H* D ABG HCO3 21.3 L ABG O2 Sat (Measured) 99.5 H ABG O2 Content 14.7 L ABG Base Excess -4.8 L Jose A Test Positive O2 Delivery Device Vent Oxygen Flow Rate 70% Vent Mode A/c Vent Rate 22 Mechanical Rate Y PEEP 10.0 Pressure Support Vent 450 Sodium Potassium Chloride Carbon Dioxide Anion Gap BUN Creatinine Creat Clearance w eGFR Random Glucose Calcium Phosphorus Magnesium Total Bilirubin AST ALT Alkaline Phosphatase Total Protein Albumin 01/27/17 01/27/17 01/27/17 05:30 05:30 07:10 WBC RBC Hgb Hct MCV MCH MCHC RDW Plt Count MPV INR 1.06 PTT (Actin FS) Puncture Site Left radial ABG pH 7.35 ABG pCO2 at Pt Temp 40.1 ABG pO2 at Pt Temp 130.0 H D ABG HCO3 21.4 L ABG O2 Sat (Measured) 99.2 H ABG O2 Content 11.5 L ABG Base Excess -3.4 L Jose A Test Positive O2 Delivery Device Mec.vent Oxygen Flow Rate 60% Vent Mode A/c Vent Rate 22 Mechanical Rate Yes PEEP 7.0 Pressure Support Vent 450 Sodium 136 Potassium 4.6 Chloride 101 Carbon Dioxide 24 Anion Gap 11 BUN 66 H Creatinine 2.6 H Creat Clearance w eGFR 17.62 Random Glucose 97 D Calcium 8.5 Phosphorus 7.0 H Magnesium 2.4 Total Bilirubin 0.9 D AST 29 ALT 16 Alkaline Phosphatase 83 Total Protein 4.5 L Albumin 1.4 L Assessment/Plan Intra-abdominal collection Perforated diverticulitis S/P Sigmoid resection with colostomy. 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 component of BALJIT -> Time period too long) Vent settings adjusted Monitor drainage Strict I&O Sedate for vent synchrony Trial of Lasix drip If hemodynamics are unstable -> Trial of Dobutamine Continue feeds as tolerated IV Heparin SBTs as tolerated Family discussions for GOC Dr Anglin Critical Care Time Total Critical Care Time: 35 Critical Care Statement: The care of this patient involved high complexity decision making to prevent further life threatening deterioration of the patient 's condition and/or to evaluate & treat vital organ system(s) failure or risk of failure.
--- NOTE | 2017-01-27 12:57 | PN ---
Progress Note, Physician History of Present Illness: patient seen and examined at bedside patient sedated and intubated remains afebrile family at bedside case discussed in detail all questions answered - Current Medication List Current Medications: Active Medications Acetaminophen (Ofirmev Injection -) 1,000 mg IVPB Q6H PRN PRN Reason: FEVER Last Admin: 01/24/17 16:32 Dose: 1,000 mg Albuterol/Ipratropium (Duoneb -) 1 amp NEB QIDR [facility] Last Admin: 01/27/17 12:22 Dose: 1 amp Chlorhexidine Gluconate (Hibiclens For Decolonization -) 1 applic TP HS [facility] Last Admin: 01/26/17 21:37 Dose: 1 applic Heparin Sodium (Porcine) (Heparin -) 1,000 unit IVPUSH PRN PRN PRN Reason: Heparin Last Admin: 01/26/17 00:00 Dose: 1,000 unit Heparin Sodium (Porcine) (Heparin -) 5,000 unit IVPUSH PRN PRN PRN Reason: Heparin Last Admin: 01/17/17 07:41 Dose: 5,000 unit Famotidine/Sodium Chloride (Pepcid 20 Mg Premixed Ivpb -) 50 mls @ 100 mls/hr IVPB BID [facility] Last Admin: 01/27/17 09:56 Dose: 100 mls/hr Fluconazole (Diflucan 200 Mg/D5w Premixed Ivpb -) 100 mls @ 100 mls/hr IVPB DAILY [facility] Last Admin: 01/27/17 09:55 Dose: 100 mls/hr Heparin Sodium/Dextrose (Heparin Infusion -) 500 mls @ 20 mls/hr IVPB TITR DAVID ; 1,000 UNITS/HR PRN Reason: Protocol Last Titration: 01/27/17 06:19 Dose: 1,200 units/hr Meropenem 1 gm/ Dextrose 100 mls @ 100 mls/hr IVPB BID@0500,1700 DAVID PRN Reason: Protocol Last Admin: 01/27/17 04:12 Dose: 100 mls/hr Propofol (Diprivan -) 100 mls @ 3.486 mls/hr IVPB TITR DAVID; 5 MCG/KG/MIN PRN Reason: Protocol Last Admin: 01/27/17 11:41 Dose: 9.1 mls/hr Norepinephrine Bitartrate 8, (000 mcg/ Dextrose) 500 mls @ 18.75 mls/hr IV TITR DAVID; 5 MCG/MIN PRN Reason: Protocol Last Admin: 01/27/17 11:39 Dose: 3.75 mls/hr Piperacillin Sod/Tazobactam Sod (Zosyn 2.25gm Ivpb (Pre-Docked)) 50 mls @ 100 mls/hr IVPB Q6H-IV DAVID PRN Reason: Protocol Last Admin: 01/27/17 08:53 Dose: 100 mls/hr Furosemide 100 mg/ Sodium (Chloride) 50 mls @ 2.5 mls/hr IVPB TITR DAVID PRN Reason: 5 MG/HR Last Admin: 01/27/17 11:24 Dose: 2.5 mls/hr Metoprolol Tartrate (Lopressor Injection -) 5 mg IVPB Q8H-IV [facility]ID Last Admin: 01/27/17 10:11 Dose: Not Given Sevelamer Carbonate (Renvela Powder Packet -) 0.8 gm NGT TIDCM [facility]ID Last Admin: 01/27/17 12:35 Dose: 0.8 gm - Objective Vital Signs: Vital Signs Temperature 98.4 F 01/27/17 10:00 Pulse Rate 86 01/27/17 11:39 Respiratory Rate 22 01/27/17 12:31 Blood Pressure 124/52 01/27/17 11:39 O2 Sat by Pulse Oximetry (%) 100 01/27/17 09:00 Constitutional: Yes: Other (sedated) Eyes: Yes: Other ( right pupil larger than left-normal per family. both are sluggishly reactive to light) HENT: Yes: Normocephalic Neck: Yes: Supple, Trachea Midline Cardiovascular: Yes: Tachycardia, Pulse Irregular, S1, S2 Respiratory: Yes: Other (scattered crackles less so than yesterday) Gastrointestinal: Yes: Soft, +Bowel Sounds, Other (incision C/D/I abdomen soft appropriately tender ostomy pink with good function. JAMES drain with purulent drainage) Genitourinary: Yes: Jennings Present Extremities: Yes: WNL Edema: yes bilateral upper and lower extremity edema Wound/Incision: Yes: Clean/Dry Neurological: Yes: sedated and intubated Labs: CBC, BMP 01/27/17 05:30 01/27/17 05:30 INR, PTT INR 1.06 (0.82-1.09) 01/27/17 05:30 Assessment/Plan 81F with a history of diverticulosis presents to the ED with perforated diverticulitis now post op s/p sigmoid resection with colostomy. perforated diverticulitis: patient is currently septic with worsening leukocystosis and tachycardia. Source is likely from the abdomen. cultures noted CT scan from 01/26/2017 show there is still an abscess that has decreased in size. f/u surgical team for further recommendations continue meropenem and diflucan per ID. Zosyn added by infectious disease f/u ID central line for CVP monitoring placed day 4 of 7 of central line pain control PRN respiratory acidosis with superimposed metabolic acidosis: resolved acute on chronic respiratory failure:post-operative respiratory failure patient's ventilatory requirements are decreasing at this time Based on ABG this morning FiO2 decreased to 40%. peep has been decreased to 7 Post-op NSTEMI: cardiology consult appreciated likely from a combination of demand and decreased clearance from acute kidney injury on heparin gtt systolic CHF with severely reduced EF: levophed being titrated off start lasix gtt history of DVT/PE: coumadin on hold for now on heparin gtt monitor PTT per protocol JG: creatinine 2.6-with elevation of BUN to 66. likely from a combination of heart failure and sepsis nephrology consult appreciated continue to trend lasix gtt to be started Afib: continue rate control with metoprolol 5mg IV q8h PRN hold while on pressors continue heparin gtt HLD: not on medications at this time will restart lipitor at home dose when appropriate FEN: stop IVF hyperphosphatemia: continue sevelamer tube feeds @ goal 42ml/hr PPx: SCDs on heparin gtt for full dose anticoagulation Pepcid PT consult when able to participate CCTime 35 min Palliative care consult for goals of care patients daughter and son at bedside. case discussed with family. updates given all questions answered.
--- NOTE | 2017-01-27 16:07 | PN ---
Progress Note, Physician History of Present Illness: no gross changes continues to be on pressors wbc has dropped continues to be intubated and sedated discussed in detail with family - Current Medication List Current Medications: Active Medications Acetaminophen (Ofirmev Injection -) 1,000 mg IVPB Q6H PRN PRN Reason: FEVER Last Admin: 01/24/17 16:32 Dose: 1,000 mg Albuterol/Ipratropium (Duoneb -) 1 amp NEB QIDR [facility] Last Admin: 01/27/17 12:22 Dose: 1 amp Chlorhexidine Gluconate (Hibiclens For Decolonization -) 1 applic TP HS [facility] Last Admin: 01/26/17 21:37 Dose: 1 applic Heparin Sodium (Porcine) (Heparin -) 1,000 unit IVPUSH PRN PRN PRN Reason: Heparin Last Admin: 01/26/17 00:00 Dose: 1,000 unit Heparin Sodium (Porcine) (Heparin -) 5,000 unit IVPUSH PRN PRN PRN Reason: Heparin Last Admin: 01/17/17 07:41 Dose: 5,000 unit Famotidine/Sodium Chloride (Pepcid 20 Mg Premixed Ivpb -) 50 mls @ 100 mls/hr IVPB BID [facility] Last Admin: 01/27/17 09:56 Dose: 100 mls/hr Fluconazole (Diflucan 200 Mg/D5w Premixed Ivpb -) 100 mls @ 100 mls/hr IVPB DAILY [facility] Last Admin: 01/27/17 09:55 Dose: 100 mls/hr Heparin Sodium/Dextrose (Heparin Infusion -) 500 mls @ 20 mls/hr IVPB TITR DAVID ; 1,000 UNITS/HR PRN Reason: Protocol Last Titration: 01/27/17 06:19 Dose: 1,200 units/hr Meropenem 1 gm/ Dextrose 100 mls @ 100 mls/hr IVPB BID@0500,1700 DAVID PRN Reason: Protocol Last Admin: 01/27/17 04:12 Dose: 100 mls/hr Propofol (Diprivan -) 100 mls @ 3.486 mls/hr IVPB TITR DAVID; 5 MCG/KG/MIN PRN Reason: Protocol Last Admin: 01/27/17 11:41 Dose: 9.1 mls/hr Norepinephrine Bitartrate 8, (000 mcg/ Dextrose) 500 mls @ 18.75 mls/hr IV TITR DAVID; 5 MCG/MIN PRN Reason: Protocol Last Admin: 01/27/17 11:39 Dose: 3.75 mls/hr Piperacillin Sod/Tazobactam Sod (Zosyn 2.25gm Ivpb (Pre-Docked)) 50 mls @ 100 mls/hr IVPB Q6H-IV DAVID PRN Reason: Protocol Last Admin: 01/27/17 15:01 Dose: 100 mls/hr Furosemide 100 mg/ Sodium (Chloride) 50 mls @ 2.5 mls/hr IVPB TITR DAVID PRN Reason: 5 MG/HR Last Admin: 01/27/17 11:24 Dose: 2.5 mls/hr Metoprolol Tartrate (Lopressor Injection -) 5 mg IVPB Q8H-IV DAVID Last Admin: 01/27/17 10:11 Dose: Not Given Sevelamer Carbonate (Renvela Powder Packet -) 0.8 gm NGT TIDCM DAVID Last Admin: 01/27/17 12:35 Dose: 0.8 gm - Objective Vital Signs: Vital Signs Temperature 98.5 F 01/27/17 14:00 Pulse Rate 84 01/27/17 14:00 Respiratory Rate 23 01/27/17 14:00 Blood Pressure 123/60 01/27/17 14:00 O2 Sat by Pulse Oximetry (%) 100 01/27/17 11:00 Constitutional: Yes: Other Cardiovascular: Yes: Pulse Irregular Respiratory: Yes: Intubated, Mechanically Ventilated Gastrointestinal: Yes: Soft, Other (feeding through ng tube draiange stil present) Musculoskeletal: Yes: Other Edema: LLE: 1+, RLE: 1+ Wound/Incision: Yes: Dressing Dry and Intact, Other Neurological: Yes: Other Labs: CBC, BMP 01/27/17 05:30 01/27/17 05:30 INR, PTT INR 1.06 (0.82-1.09) 01/27/17 05:30 - ....Imaging Cat Scan: Report Reviewed, Image Reviewed Assessment/Plan 81 y/o old with multiple medical problems with perforated bowel post op Perforated bowel Peritonitis Sepsis s/p ex-lap with sigmoid resection, colostomy Resolving JG Lactic acidosis AF h/o DVT/PE septic shock plan continue abx repeat ct scan of abd noted patient continues to be critical monitor wbc rest as per icu cc tim40 min
--- NOTE | 2017-01-27 16:48 | PN ---
Progress Note (short form) - Note Progress Note: Attending Surgeon POD #[id number] remains in ICU on vent; on minimal pressor support VSS AF abdomen-no change from yesterday CT scan from yesterday reviewed and improved WBC 12.8 today CXR-fluid overload IMP: perforated diverticulitis w/abscess s/p Hartmans procedure. PLAN: Continue present tx. as per ICU and Consultants. Taqueria Prado MD FACS
[2017-01-27] MEDS: HEPARIN INFUSION - 500 ML IVPB SCH (16:57)
[2017-01-27] MEDS: CHLORHEXIDINE GLUCONATE 4% CLEANSER FOR DECOLONIZATION TP SCH (21:34)
[2017-01-28] MEDS: METOPROLOL TARTRATE 5 MG/5 ML VIAL IVPB SCH ×3 (02:28→18:11)
[2017-01-28] MEDS: PIPERACILLIN/TAZOB 2.25 GM 50 ML IVPB SCH ×4 (02:29→21:23)
[2017-01-28] MEDS ORDERED: PT OWN MED DRAWER 7, Y5N ONE ×3 (04:55→17:08)
[2017-01-28] MEDS: MEROPENEM 1 GM in DEXTROSE 5%-WATER - 100 ML IVPB SCH ×2 (05:01→17:56)
[2017-01-28] MEDS: ALBUTEROL SO4 2.5/IPRATROPIUM 0.5 INH SOL 3 ML VIAL.NEB. NEB SCH ×3 (06:20→17:06)
[2017-01-28 06:29] LABS: MCH 31.7 pg (25.7-33.7); MCHC 31.8 g/dl (32.0-36.0); MEAN CELL VOLUME 99.6 fl (80-96); MEAN PLT VOLUME 9.8 fl (7.5-11.1); PLATELET COUNT 254 K/MM3 (134-434); RDW 15.2 % (11.6-15.6); WHITE BLOOD COUNT 15.1 K/mm3 (4.0-10.0)
[2017-01-28 07:23] LABS: INR 1.15 (0.82-1.09); PROTHROMBIN TIME (PATIENT) 12.7 SEC (9.98-11.88)
[2017-01-28 07:30] LABS: ALBUMIN 1.4 g/dl (3.4-5.0); ANION GAP 7 (8-16); CO2 25 mmol/L (21-32); CREATININE 2.9 mg/dL (0.55-1.02); GLUCOSE,RANDOM 110 mg/dL (74-106); MAGNESIUM 2.3 mg/dL (1.8-2.4); SGOT/AST 26 U/L (15-37); SGPT/ALT 15 U/L (12-78)
[2017-01-28 07:32] LABS: ALK PHOS 87 U/L (45-117); BILIRUBIN,TOTAL 0.4 mg/dL (0.2-1.0); TOT PROT 4.7 g/dl (6.4-8.2)
[2017-01-28 07:39] LABS: ARTERIAL BLD GAS O2 SATURATION 95.3 % (90-98.9); ARTERIAL BLOOD GAS BASE EXCESS -3.4 meq/l (-2-2); ARTERIAL BLOOD GAS PO2 75.6 mmHg (68-100); ARTERIAL BLOOD GAS pH 7.38 (7.35-7.45)
[2017-01-28 07:42] LABS: ALLENS TEST POSITIVE; ART PUNCT SITE LEFT RADIAL; LPM/O2% 40%; MECH. VENT. YES; PT. ON O2? YES; TYPE OF O2 MEC.VENT; VENT RATE 22; VT/PRESS 450
[2017-01-28 08:46] LABS: ARTERIAL BLOOD GAS HCO3 20.8 meq/L (22-26)
[2017-01-28] MEDS: FAMOTIDINE 20 MG/50 ML IVPB 50 ML IVPB SCH ×2 (09:10→21:24)
[2017-01-28] MEDS: FLUCONAZOLE 200 MG/D5W 100 ML IVPB SCH (09:11)
[2017-01-28] MEDS: HEPARIN NA (PORCINE) 5,000 UNITS/ML 1ML VIAL IVPUSH PRN (09:19)
[2017-01-28] MEDS: SEVELAMER CARBONATE 0.8 GM POWDER PACKET NGT SCH ×3 (10:00→17:04)
--- NOTE | 2017-01-28 10:01 | PN ---
Progress Note, Physician History of Present Illness: patient seen and examined at bedside patient sedated and intubated remains afebrile - Current Medication List Current Medications: Active Medications Acetaminophen (Ofirmev Injection -) 1,000 mg IVPB Q6H PRN PRN Reason: FEVER Last Admin: 01/24/17 16:32 Dose: 1,000 mg Albuterol/Ipratropium (Duoneb -) 1 amp NEB QIDR [facility]ID Last Admin: 01/28/17 06:20 Dose: 1 amp Chlorhexidine Gluconate (Hibiclens For Decolonization -) 1 applic TP HS [facility]ID Last Admin: 01/27/17 21:34 Dose: 1 applic Heparin Sodium (Porcine) (Heparin -) 1,000 unit IVPUSH PRN PRN PRN Reason: Heparin Last Admin: 01/28/17 09:19 Dose: 1,000 unit Heparin Sodium (Porcine) (Heparin -) 5,000 unit IVPUSH PRN PRN PRN Reason: Heparin Last Admin: 01/17/17 07:41 Dose: 5,000 unit Famotidine/Sodium Chloride (Pepcid 20 Mg Premixed Ivpb -) 50 mls @ 100 mls/hr IVPB BID [facility] Last Admin: 01/28/17 09:10 Dose: 100 mls/hr Fluconazole (Diflucan 200 Mg/D5w Premixed Ivpb -) 100 mls @ 100 mls/hr IVPB DAILY [facility] Last Admin: 01/28/17 09:11 Dose: 100 mls/hr Heparin Sodium/Dextrose (Heparin Infusion -) 500 mls @ 20 mls/hr IVPB TITR DAVID ; 1,000 UNITS/HR PRN Reason: Protocol Last Admin: 01/27/17 16:57 Dose: 24 mls/hr Meropenem 1 gm/ Dextrose 100 mls @ 100 mls/hr IVPB BID@0500,1700 DAVID PRN Reason: Protocol Last Admin: 01/28/17 05:01 Dose: 100 mls/hr Propofol (Diprivan -) 100 mls @ 3.486 mls/hr IVPB TITR DAVID; 5 MCG/KG/MIN PRN Reason: Protocol Last Admin: 01/27/17 11:41 Dose: 9.1 mls/hr Norepinephrine Bitartrate 8, (000 mcg/ Dextrose) 500 mls @ 18.75 mls/hr IV TITR DAVID; 5 MCG/MIN PRN Reason: Protocol Last Admin: 01/27/17 11:39 Dose: 3.75 mls/hr Piperacillin Sod/Tazobactam Sod (Zosyn 2.25gm Ivpb (Pre-Docked)) 50 mls @ 100 mls/hr IVPB Q6H-IV DAVID PRN Reason: Protocol Last Admin: 01/28/17 09:11 Dose: 100 mls/hr Furosemide 100 mg/ Sodium (Chloride) 50 mls @ 2.5 mls/hr IVPB TITR DAVID PRN Reason: 5 MG/HR Last Admin: 01/27/17 11:24 Dose: 2.5 mls/hr Metoprolol Tartrate (Lopressor Injection -) 5 mg IVPB Q8H-IV DAVID Last Admin: 01/28/17 09:18 Dose: 5 mg Sevelamer Carbonate (Renvela Powder Packet -) 0.8 gm NGT TIDCM DAVID Last Admin: 01/27/17 16:58 Dose: 0.8 gm - Objective Vital Signs: Vital Signs Temperature 98.5 F 01/28/17 08:00 Pulse Rate 90 01/28/17 09:18 Respiratory Rate 19 01/28/17 08:00 Blood Pressure 111/54 01/28/17 09:18 O2 Sat by Pulse Oximetry (%) 100 01/27/17 20:47 Constitutional: Yes: Other (sedated) Eyes: Yes: Other ( right pupil larger than left-normal per family. both are sluggishly reactive to light) HENT: Yes: Normocephalic Neck: Yes: Supple, Trachea Midline Cardiovascular: Yes: RRR, S1, S2 Respiratory: Yes: Other (scattered crackles less so than yesterday) Gastrointestinal: Yes: Soft, +Bowel Sounds, Other (incision C/D/I abdomen soft appropriately tender ostomy pink with good function. JAMES drain with purulent drainage) Genitourinary: Yes: Jennings Present Extremities: Yes: WNL Edema: yes bilateral upper and lower extremity edema Wound/Incision: Yes: Clean/Dry Neurological: Yes: sedated and intubated Labs: CBC, BMP 01/28/17 06:05 01/28/17 06:05 INR, PTT INR 1.15 (0.82-1.09) H 01/28/17 06:05 Assessment/Plan 81F with a history of diverticulosis presents to the ED with perforated diverticulitis now post op s/p sigmoid resection with colostomy. perforated diverticulitis: patient is currently septic with worsening leukocystosis and tachycardia. Source is likely from the abdomen. cultures noted-strep viridans and e. coli grew from culutres from abdomen. Today also a GPB anarobe is also growing will follow up with ID CT scan from 01/26/2017 show there is still an abscess that has decreased in size. f/u surgical team for further recommendations continue meropenem and diflucan per ID. Zosyn added by infectious disease f/u ID central line for CVP monitoring placed day 5 of 7 of central line pain control PRN respiratory acidosis with superimposed metabolic acidosis: resolved Macrocytic anemia: B12 levels high Folate levels pending Anemia: Will continue to trend and transfuse acute on chronic respiratory failure:post-operative respiratory failure patient's ventilatory requirements are decreasing at this time ABG this morning much improved Post-op NSTEMI: cardiology consult appreciated likely from a combination of demand and decreased clearance from acute kidney injury on heparin gtt systolic CHF with severely reduced EF: levophed being titrated off lasix gtt history of DVT/PE: coumadin on hold for now on heparin gtt monitor PTT per protocol JG: creatinine 2.9-with elevation of BUN to 69. likely from a combination of heart failure and sepsis nephrology consult appreciated continue to trend lasix gtt f/u nephrology for further recommendations Afib: continue rate control with metoprolol 5mg IV q8h PRN hold while on pressors continue heparin gtt HLD: not on medications at this time will restart lipitor at home dose when appropriate FEN: stop IVF hyperphosphatemia: continue sevelamer tube feeds @ goal 42ml/hr PPx: SCDs on heparin gtt for full dose anticoagulation Pepcid PT consult when able to participate CCTime 35 min Palliative care consult for goals of care
[2017-01-28] MEDS: FUROSEMIDE INJECTION 100 MG in SODIUM CHLORIDE 40 ML IVPB SCH (10:30)
--- NOTE | 2017-01-28 10:30 | PN ---
Progress Note, Physician History of Present Illness: On respirator Off vasopressors - Current Medication List Current Medications: Active Medications Acetaminophen (Ofirmev Injection -) 1,000 mg IVPB Q6H PRN PRN Reason: FEVER Last Admin: 01/24/17 16:32 Dose: 1,000 mg Albuterol/Ipratropium (Duoneb -) 1 amp NEB QIDR [facility]ID Last Admin: 01/28/17 06:20 Dose: 1 amp Chlorhexidine Gluconate (Hibiclens For Decolonization -) 1 applic TP HS [facility] Last Admin: 01/27/17 21:34 Dose: 1 applic Heparin Sodium (Porcine) (Heparin -) 1,000 unit IVPUSH PRN PRN PRN Reason: Heparin Last Admin: 01/28/17 09:19 Dose: 1,000 unit Heparin Sodium (Porcine) (Heparin -) 5,000 unit IVPUSH PRN PRN PRN Reason: Heparin Last Admin: 01/17/17 07:41 Dose: 5,000 unit Famotidine/Sodium Chloride (Pepcid 20 Mg Premixed Ivpb -) 50 mls @ 100 mls/hr IVPB BID [facility] Last Admin: 01/28/17 09:10 Dose: 100 mls/hr Fluconazole (Diflucan 200 Mg/D5w Premixed Ivpb -) 100 mls @ 100 mls/hr IVPB DAILY [facility] Last Admin: 01/28/17 09:11 Dose: 100 mls/hr Heparin Sodium/Dextrose (Heparin Infusion -) 500 mls @ 20 mls/hr IVPB TITR DAVID ; 1,000 UNITS/HR PRN Reason: Protocol Last Admin: 01/27/17 16:57 Dose: 24 mls/hr Meropenem 1 gm/ Dextrose 100 mls @ 100 mls/hr IVPB BID@0500,1700 DAVID PRN Reason: Protocol Last Admin: 01/28/17 05:01 Dose: 100 mls/hr Propofol (Diprivan -) 100 mls @ 3.486 mls/hr IVPB TITR DAVID; 5 MCG/KG/MIN PRN Reason: Protocol Last Admin: 01/27/17 11:41 Dose: 9.1 mls/hr Norepinephrine Bitartrate 8, (000 mcg/ Dextrose) 500 mls @ 18.75 mls/hr IV TITR DAVID; 5 MCG/MIN PRN Reason: Protocol Last Admin: 01/27/17 11:39 Dose: 3.75 mls/hr Piperacillin Sod/Tazobactam Sod (Zosyn 2.25gm Ivpb (Pre-Docked)) 50 mls @ 100 mls/hr IVPB Q6H-IV DAVID PRN Reason: Protocol Last Admin: 01/28/17 09:11 Dose: 100 mls/hr Furosemide 100 mg/ Sodium (Chloride) 50 mls @ 2.5 mls/hr IVPB TITR DAVID PRN Reason: 5 MG/HR Last Admin: 01/27/17 11:24 Dose: 2.5 mls/hr Metoprolol Tartrate (Lopressor Injection -) 5 mg IVPB Q8H-IV DAVID Last Admin: 01/28/17 09:18 Dose: 5 mg Sevelamer Carbonate (Renvela Powder Packet -) 0.8 gm NGT TIDCM [facility]ID Last Admin: 01/27/17 16:58 Dose: 0.8 gm - Objective Vital Signs: Vital Signs Temperature 99.6 F 01/28/17 05:52 Pulse Rate 90 01/28/17 09:18 Respiratory Rate 24 01/28/17 06:32 Blood Pressure 111/54 01/28/17 09:18 O2 Sat by Pulse Oximetry (%) 100 01/27/17 20:47 Eyes: Yes: WNL HENT: Yes: WNL Neck: Yes: WNL Cardiovascular: Yes: Regular Rate and Rhythm Respiratory: Yes: Mechanically Ventilated Gastrointestinal: Yes: Normal Bowel Sounds ...Rectal Exam: Yes: Deferred Genitourinary: Yes: Jennings Present Edema: Yes Edema: LUE: 1+, RUE: 1+, LLE: 1+, RLE: 1+ Neurological: Yes: Lethargy Labs: CBC, BMP 01/28/17 06:05 01/28/17 06:05 INR, PTT INR 1.15 (0.82-1.09) H 01/28/17 06:05 - ....Imaging Chest X-ray: Report Reviewed Assessment/Plan Continue as per ICU attending
--- NOTE | 2017-01-28 10:34 | PN ---
Teaching Attending Note Name of Resident: Dae Carr ATTENDING PHYSICIAN STATEMENT I saw and evaluated the patient. I reviewed the resident's note and discussed the case with the resident. I agree with the resident's findings and plan as documented. SUBJECTIVE: Patient seen and examined at bedside. Remains intubated and sedated on Propofol. FiO2 40% and PEEP 7. (+) Dark liquid stools noted in ostomy. (+) No change in character in JAMES material CXR : Mild increase in left effusion Intake & Output 01/25/17 01/26/17 01/27/17 01/28/17 23:59 23:59 23:59 23:59 Intake Total 2275 2794 1933 1350.0 Output Total 5027 173 1098 430 Balance 1005 1914 253 920.0 Weight 258 lb 257 lb 15.053 oz 272 lb 0.807 oz 275 lb 12.772 oz Last Vital Signs Temp Pulse Resp BP Pulse Ox 98.5 F 90 20 111/54 95 01/28/17 08:00 01/28/17 09:18 01/28/17 09:00 01/28/17 09:18 01/28/17 09:00 Active Medications Acetaminophen (Ofirmev Injection -) 1,000 mg IVPB Q6H PRN PRN Reason: FEVER Last Admin: 01/24/17 16:32 Dose: 1,000 mg Albuterol/Ipratropium (Duoneb -) 1 amp NEB QIDR [facility] Last Admin: 01/28/17 06:20 Dose: 1 amp Chlorhexidine Gluconate (Hibiclens For Decolonization -) 1 applic TP HS [facility] Last Admin: 01/27/17 21:34 Dose: 1 applic Heparin Sodium (Porcine) (Heparin -) 1,000 unit IVPUSH PRN PRN PRN Reason: Heparin Last Admin: 01/28/17 09:19 Dose: 1,000 unit Heparin Sodium (Porcine) (Heparin -) 5,000 unit IVPUSH PRN PRN PRN Reason: Heparin Last Admin: 01/17/17 07:41 Dose: 5,000 unit Famotidine/Sodium Chloride (Pepcid 20 Mg Premixed Ivpb -) 50 mls @ 100 mls/hr IVPB BID [facility] Last Admin: 01/28/17 09:10 Dose: 100 mls/hr Fluconazole (Diflucan 200 Mg/D5w Premixed Ivpb -) 100 mls @ 100 mls/hr IVPB DAILY [facility] Last Admin: 01/28/17 09:11 Dose: 100 mls/hr Heparin Sodium/Dextrose (Heparin Infusion -) 500 mls @ 20 mls/hr IVPB TITR DAVID ; 1,000 UNITS/HR PRN Reason: Protocol Last Admin: 01/27/17 16:57 Dose: 24 mls/hr Meropenem 1 gm/ Dextrose 100 mls @ 100 mls/hr IVPB BID@0500,1700 DAVID PRN Reason: Protocol Last Admin: 01/28/17 05:01 Dose: 100 mls/hr Propofol (Diprivan -) 100 mls @ 3.486 mls/hr IVPB TITR DAVID; 5 MCG/KG/MIN PRN Reason: Protocol Last Admin: 01/27/17 11:41 Dose: 9.1 mls/hr Norepinephrine Bitartrate 8, (000 mcg/ Dextrose) 500 mls @ 18.75 mls/hr IV TITR DAVID; 5 MCG/MIN PRN Reason: Protocol Last Admin: 01/27/17 11:39 Dose: 3.75 mls/hr Piperacillin Sod/Tazobactam Sod (Zosyn 2.25gm Ivpb (Pre-Docked)) 50 mls @ 100 mls/hr IVPB Q6H-IV DAVID PRN Reason: Protocol Last Admin: 01/28/17 09:11 Dose: 100 mls/hr Furosemide 100 mg/ Sodium (Chloride) 50 mls @ 2.5 mls/hr IVPB TITR DAVID PRN Reason: 5 MG/HR Last Admin: 01/27/17 11:24 Dose: 2.5 mls/hr Metoprolol Tartrate (Lopressor Injection -) 5 mg IVPB Q8H-IV DAVID Last Admin: 01/28/17 09:18 Dose: 5 mg Sevelamer Carbonate (Renvela Powder Packet -) 0.8 gm NGT TIDCM [facility] Last Admin: 01/27/17 16:58 Dose: 0.8 gm Constitutional: Yes: Intubated, sedated Eyes: Yes: (-) Pallor (-) Icterus HENT: Yes: Normocephalic Neck: Yes: Supple, Trachea Midline Cardiovascular: Yes: Tachycardia, Pulse Irregular, S1, S2 Respiratory: Yes: Bilateral scattered Rhonchi and crackles Gastrointestinal: Yes: Soft, (+) BS, brownish discharge from drain, incision C/D /I, ostomy pink with dark output Genitourinary: Yes: Jennings Present Extremities: Yes: WNL Edema: No Integumentary: Yes: Tenting Wound/Incision: Yes: Clean/Dry Neurological: Yes: Alert, non-focal Psychiatric: Yes: Cooperative Labs: Laboratory Results - last 24 hr 01/28/17 01/28/17 01/28/17 06:05 06:05 06:05 WBC 15.1 H RBC 2.27 L Hgb 7.2 L Hct 22.6 L MCV 99.6 H MCH 31.7 MCHC 31.8 L RDW 15.2 Plt Count 254 MPV 9.8 INR 1.15 H PTT (Actin FS) 44.0 H Anticoagulation Therapy Puncture Site ABG pH ABG pCO2 at Pt Temp ABG pO2 at Pt Temp ABG HCO3 ABG O2 Sat (Measured) ABG O2 Content ABG Base Excess Jose A Test O2 Delivery Device Oxygen Flow Rate Vent Mode Vent Rate Mechanical Rate PEEP Pressure Support Vent Sodium Potassium Chloride Carbon Dioxide Anion Gap BUN Creatinine Creat Clearance w eGFR Random Glucose Calcium Phosphorus Magnesium Total Bilirubin AST ALT Alkaline Phosphatase Total Protein Albumin Vitamin B12 01/28/17 01/28/17 01/28/17 06:05 06:05 07:30 WBC RBC Hgb Hct MCV MCH MCHC RDW Plt Count MPV INR PTT (Actin FS) Anticoagulation Therapy Digital Composer Puncture Site Left radial ABG pH 7.38 ABG pCO2 at Pt Temp 36.3 ABG pO2 at Pt Temp 75.6 D ABG HCO3 20.8 L ABG O2 Sat (Measured) 95.3 ABG O2 Content 10.8 L ABG Base Excess -3.4 L Jose A Test Positive O2 Delivery Device Mec.vent Oxygen Flow Rate 40% Vent Mode A/c Vent Rate 22 Mechanical Rate Yes PEEP 7.0 Pressure Support Vent 450 Sodium 135 L Potassium 4.4 Chloride 103 Carbon Dioxide 25 Anion Gap 7 L BUN 69 H Creatinine 2.9 H Creat Clearance w eGFR 15.54 Random Glucose 110 H Calcium 8.0 L Phosphorus 7.0 H Magnesium 2.3 Total Bilirubin 0.4 D AST 26 ALT 15 Alkaline Phosphatase 87 Total Protein 4.7 L Albumin 1.4 L Vitamin B12 1587 H Assessment/Plan Intra-abdominal collection Perforated diverticulitis S/P Sigmoid resection with colostomy. 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 component of BALJIT -> Time period too long) Monitor drainage Strict I&O Lighten Sedation Lasix drip If hemodynamics are unstable -> Trial of Dobutamine Continue feeds as tolerated IV Heparin SBTs as tolerated Family discussions for GOC Dr Anglin Critical Care Time Total Critical Care Time: 35 Critical Care Statement: The care of this patient involved high complexity decision making to prevent further life threatening deterioration of the patient 's condition and/or to evaluate & treat vital organ system(s) failure or risk of failure.
[2017-01-28] MEDS: NOREPINEPHRINE BITARTRATE 8,000 MCG in DEXTROSE 5%-WATER - 492 ML IV SCH (11:00)
--- NOTE | 2017-01-28 14:51 | PN ---
Progress Note (short form) - Note Progress Note: Renal Follow up for JG Pt seen and examined in the ICU on vent, FiO2 is 50% sedated on propofol on Lasix gtt good urine output Vital Signs Temperature 98.6 F 01/28/17 12:00 Pulse Rate 84 01/28/17 12:00 Respiratory Rate 22 01/28/17 14:12 Blood Pressure 119/60 01/28/17 12:00 O2 Sat by Pulse Oximetry (%) 93 L 01/28/17 11:25 Intake & Output 01/25/17 01/26/17 01/27/17 01/28/17 23:59 23:59 23:59 23:59 Intake Total 2275 2794 1933 1350.0 Output Total 7662 829 8506 430 Balance 1005 1914 253 920.0 Weight 258 lb 257 lb 15.053 oz 272 lb 0.807 oz 275 lb 12.772 oz Gen: intubated on vent CVS: RRR Lungs: Dec BS throughout the lung dimas Abd: soft NT/ND Ext: 2+ edema upper ext and lower ext CBC, BMP 01/28/17 06:05 01/28/17 06:05 Laboratory Tests 01/28/17 06:05 Calcium 8.0 L Phosphorus 7.0 H Magnesium 2.3 Albumin 1.4 L Current Medications Acetaminophen (Ofirmev Injection -) 1,000 mg IVPB Q6H PRN PRN Reason: FEVER Last Admin: 01/24/17 16:32 Dose: 1,000 mg Albuterol/Ipratropium (Duoneb -) 1 amp NEB QIDR [facility] Last Admin: 01/28/17 12:24 Dose: 1 amp Chlorhexidine Gluconate (Hibiclens For Decolonization -) 1 applic TP HS [facility] Last Admin: 01/27/17 21:34 Dose: 1 applic Heparin Sodium (Porcine) (Heparin -) 1,000 unit IVPUSH PRN PRN PRN Reason: Heparin Last Admin: 01/28/17 09:19 Dose: 1,000 unit Heparin Sodium (Porcine) (Heparin -) 5,000 unit IVPUSH PRN PRN PRN Reason: Heparin Last Admin: 01/17/17 07:41 Dose: 5,000 unit Famotidine/Sodium Chloride (Pepcid 20 Mg Premixed Ivpb -) 50 mls @ 100 mls/hr IVPB BID [facility] Last Admin: 01/28/17 09:10 Dose: 100 mls/hr Fluconazole (Diflucan 200 Mg/D5w Premixed Ivpb -) 100 mls @ 100 mls/hr IVPB DAILY [facility] Last Admin: 01/28/17 09:11 Dose: 100 mls/hr Heparin Sodium/Dextrose (Heparin Infusion -) 500 mls @ 20 mls/hr IVPB TITR [facility]ID ; 1,000 UNITS/HR PRN Reason: Protocol Last Titration: 01/28/17 13:23 Dose: 1,300 units/hr Meropenem 1 gm/ Dextrose 100 mls @ 100 mls/hr IVPB BID@0500,1700 [facility]ID PRN Reason: Protocol Last Admin: 01/28/17 05:01 Dose: 100 mls/hr Propofol (Diprivan -) 100 mls @ 3.486 mls/hr IVPB TITR [facility]ID; 5 MCG/KG/MIN PRN Reason: Protocol Last Admin: 01/27/17 11:41 Dose: 9.1 mls/hr Norepinephrine Bitartrate 8, (000 mcg/ Dextrose) 500 mls @ 18.75 mls/hr IV TITR [facility]ID; 5 MCG/MIN PRN Reason: Protocol Last Admin: 01/27/17 11:39 Dose: 3.75 mls/hr Piperacillin Sod/Tazobactam Sod (Zosyn 2.25gm Ivpb (Pre-Docked)) 50 mls @ 100 mls/hr IVPB Q6H-IV [facility]ID PRN Reason: Protocol Last Admin: 01/28/17 09:11 Dose: 100 mls/hr Furosemide 100 mg/ Sodium (Chloride) 50 mls @ 2.5 mls/hr IVPB TITR [facility]ID PRN Reason: 5 MG/HR Last Admin: 01/27/17 11:24 Dose: 2.5 mls/hr Metoprolol Tartrate (Lopressor Injection -) 5 mg IVPB Q8H-IV [facility] Last Admin: 01/28/17 09:18 Dose: 5 mg Sevelamer Carbonate (Renvela Powder Packet -) 0.8 gm NGT TIDCM [facility] Last Admin: 01/28/17 13:00 Dose: 0.8 gm A/P 81 year old woman with PMhx of CKD? (Atrophic Kidney seen on US which is a chronic finding), Diverticulosis, DVT/PE on Warfarin, Hypertension who presented with Abd pain and found to have perforated bowel with diverticulitis s /p bowel resection with colostomy with JG with Cr of 2. #Non-oliguric acute kidney injury in likely underlying CKD pt responsive to Lasix gtt, would continue for now agree with Dobutamine if BP remains marginal can consider titration of lasix in AM if not achieving negative balance no acute indication for [employer] at this time #Hyperphospahtemia start renvela Q8h via NGT Goal Phos < 5.5 #Anemia transfuse as needed per ICU protocol #Sepsis/Shock/Perforated Abd viscus Continue ICU care Jair Hernandezji Problem List - Problems (1) Perforated bowel Code(s): K63.1 - PERFORATION OF INTESTINE (NONTRAUMATIC) (2) Sepsis Code(s): A41.9 - SEPSIS, UNSPECIFIED ORGANISM Qualifiers: Qualified Code(s): A41.9 - Sepsis, unspecified organism (3) Acute renal failure (ARF) Code(s): N17.9 - ACUTE KIDNEY FAILURE, UNSPECIFIED (4) CKD (chronic kidney disease) Code(s): N18.9 - CHRONIC KIDNEY DISEASE, UNSPECIFIED (5) Hypertension Code(s): I10 - ESSENTIAL (PRIMARY) HYPERTENSION (6) Diverticulosis Code(s): K57.90 - DVRTCLOS OF INTEST, PART UNSP, W/O PERF OR ABSCESS W/O BLEED
[2017-01-28] MEDS: HEPARIN INFUSION - 500 ML IVPB SCH (17:01)
[2017-01-28] MEDS: PROPOFOL 100 ML IVPB SCH (17:02)
--- NOTE | 2017-01-28 17:18 | PN ---
Progress Note, Physician History of Present Illness: patients parameters improving wbc up off of pressors continues to be intubated and sedated - Current Medication List Current Medications: Active Medications Acetaminophen (Ofirmev Injection -) 1,000 mg IVPB Q6H PRN PRN Reason: FEVER Last Admin: 01/24/17 16:32 Dose: 1,000 mg Albuterol/Ipratropium (Duoneb -) 1 amp NEB QIDR [facility] Last Admin: 01/28/17 17:06 Dose: 1 amp Chlorhexidine Gluconate (Hibiclens For Decolonization -) 1 applic TP HS [facility] Last Admin: 01/27/17 21:34 Dose: 1 applic Heparin Sodium (Porcine) (Heparin -) 1,000 unit IVPUSH PRN PRN PRN Reason: Heparin Last Admin: 01/28/17 09:19 Dose: 1,000 unit Heparin Sodium (Porcine) (Heparin -) 5,000 unit IVPUSH PRN PRN PRN Reason: Heparin Last Admin: 01/17/17 07:41 Dose: 5,000 unit Famotidine/Sodium Chloride (Pepcid 20 Mg Premixed Ivpb -) 50 mls @ 100 mls/hr IVPB BID [facility] Last Admin: 01/28/17 09:10 Dose: 100 mls/hr Fluconazole (Diflucan 200 Mg/D5w Premixed Ivpb -) 100 mls @ 100 mls/hr IVPB DAILY [facility] Last Admin: 01/28/17 09:11 Dose: 100 mls/hr Heparin Sodium/Dextrose (Heparin Infusion -) 500 mls @ 20 mls/hr IVPB TITR DAVID ; 1,000 UNITS/HR PRN Reason: Protocol Last Admin: 01/28/17 17:01 Dose: 26 mls/hr Meropenem 1 gm/ Dextrose 100 mls @ 100 mls/hr IVPB BID@0500,1700 DAVID PRN Reason: Protocol Last Admin: 01/28/17 05:01 Dose: 100 mls/hr Propofol (Diprivan -) 100 mls @ 3.486 mls/hr IVPB TITR DAVID; 5 MCG/KG/MIN PRN Reason: Protocol Last Admin: 01/28/17 17:02 Dose: 7 mls/hr Norepinephrine Bitartrate 8, (000 mcg/ Dextrose) 500 mls @ 18.75 mls/hr IV TITR DAVID; 5 MCG/MIN PRN Reason: Protocol Last Admin: 01/28/17 11:00 Dose: Not Given Piperacillin Sod/Tazobactam Sod (Zosyn 2.25gm Ivpb (Pre-Docked)) 50 mls @ 100 mls/hr IVPB Q6H-IV DAVID PRN Reason: Protocol Last Admin: 01/28/17 17:00 Dose: 100 mls/hr Furosemide 100 mg/ Sodium (Chloride) 50 mls @ 2.5 mls/hr IVPB TITR [facility]ID PRN Reason: 5 MG/HR Last Admin: 01/27/17 11:24 Dose: 2.5 mls/hr Metoprolol Tartrate (Lopressor Injection -) 5 mg IVPB Q8H-IV [facility] Last Admin: 01/28/17 09:18 Dose: 5 mg Sevelamer Carbonate (Renvela Powder Packet -) 0.8 gm NGT TIDCM [facility] Last Admin: 01/28/17 17:04 Dose: 0.8 gm - Objective Vital Signs: Vital Signs Temperature 98.6 F 01/28/17 12:00 Pulse Rate 88 01/28/17 14:00 Respiratory Rate 22 01/28/17 17:03 Blood Pressure 110/84 01/28/17 14:00 O2 Sat by Pulse Oximetry (%) 93 L 01/28/17 11:25 Constitutional: Yes: Other Cardiovascular: Yes: Pulse Irregular, S1, S2 Respiratory: Yes: Intubated, Mechanically Ventilated Gastrointestinal: Yes: Soft, Other (drainage tube in place) Musculoskeletal: Yes: WNL Extremities: Yes: WNL Neurological: Yes: Other Psychiatric: Yes: Alert Labs: CBC, BMP 01/28/17 06:05 01/28/17 06:05 INR, PTT INR 1.15 (0.82-1.09) H 01/28/17 06:05 Assessment/Plan 81 y/o old with multiple medical problems with perforated bowel post op Perforated bowel Peritonitis Sepsis s/p ex-lap with sigmoid resection, colostomy Resolving JG Lactic acidosis AF h/o DVT/PE septic shock plan continue current management rest continue abx nutrition monitor wbc rest continue current mgmt and as per icu cc tim40 min
[2017-01-28] MEDS: CHLORHEXIDINE GLUCONATE 4% CLEANSER FOR DECOLONIZATION TP SCH (21:24)
[2017-01-29] MEDS: ALBUTEROL SO4 2.5/IPRATROPIUM 0.5 INH SOL 3 ML VIAL.NEB. NEB SCH ×5 (00:41→23:03)
[2017-01-29] MEDS ORDERED: FUROSEMIDE 40 MG/4 ML INJECTABLE VIAL ONE (01:11)
[2017-01-29] MEDS: METOPROLOL TARTRATE 5 MG/5 ML VIAL IVPB SCH ×3 (02:07→17:00)
[2017-01-29] MEDS: PIPERACILLIN/TAZOB 2.25 GM 50 ML IVPB SCH ×4 (02:07→21:45)
[2017-01-29] MEDS ORDERED: FUROSEMIDE 100 MG/10 ML INJECTABLE VIAL ONE ×2 (02:17→23:00)
[2017-01-29] MEDS: MEROPENEM 1 GM in DEXTROSE 5%-WATER - 100 ML IVPB SCH ×2 (06:00→17:27)
[2017-01-29] MEDS ORDERED: PT OWN MED DRAWER 7, Y5N ONE ×3 (06:17→16:21)
[2017-01-29 06:40] LABS: MCH 32.2 pg (25.7-33.7); MCHC 32.1 g/dl (32.0-36.0); MEAN CELL VOLUME 100.6 fl (80-96); MEAN PLT VOLUME 9.9 fl (7.5-11.1); PLATELET COUNT 235 K/MM3 (134-434); RDW 15.4 % (11.6-15.6); WHITE BLOOD COUNT 13.7 K/mm3 (4.0-10.0)
[2017-01-29 06:55] LABS: INR 1.16 (0.82-1.09); PROTHROMBIN TIME (PATIENT) 12.8 SEC (9.98-11.88)
[2017-01-29] MEDS: HEPARIN INFUSION - 500 ML IVPB SCH ×2 (07:00→17:31)
[2017-01-29 07:23] LABS: ARTERIAL BLD GAS O2 SATURATION 96.6 % (90-98.9); ARTERIAL BLOOD GAS BASE EXCESS -3.2 meq/l (-2-2); ARTERIAL BLOOD GAS HCO3 21.3 meq/L (22-26); ARTERIAL BLOOD GAS pH 7.36 (7.35-7.45)
[2017-01-29 07:26] LABS: ALLENS TEST POSITIVE; ART PUNCT SITE LEFT RADIAL; LPM/O2% 45%; MECH. VENT. ESPRIT; PT. ON O2? YES; TYPE OF O2 MEC.VENT; VENT RATE 22; VT/PRESS 450
[2017-01-29 07:53] LABS: ALBUMIN 1.3 g/dl (3.4-5.0); ALK PHOS 82 U/L (45-117); ANION GAP 11 (8-16); BILIRUBIN,TOTAL 0.4 mg/dL (0.2-1.0); CALCIUM 7.8 mg/dL (8.5-10.1); CO2 23 mmol/L (21-32); GLUCOSE,RANDOM 101 mg/dL (74-106); MAGNESIUM 2.3 mg/dL (1.8-2.4); PHOSPHOROUS 7.8 mg/dL (2.5-4.9); SGOT/AST 20 U/L (15-37); SGPT/ALT 13 U/L (12-78); TOT PROT 4.6 g/dl (6.4-8.2)
[2017-01-29] MEDS ORDERED: FUROSEMIDE INJECTION 100 MG in SODIUM CHLORIDE 40 ML IVPB SCH (08:32)
[2017-01-29] MEDS: SEVELAMER CARBONATE 0.8 GM POWDER PACKET NGT SCH ×3 (08:43→17:26)
[2017-01-29] MEDS: FAMOTIDINE 20 MG/50 ML IVPB 50 ML IVPB SCH ×2 (09:11→22:00)
[2017-01-29] MEDS: FLUCONAZOLE 200 MG/D5W 100 ML IVPB SCH (09:11)
--- NOTE | 2017-01-29 09:38 | PN ---
Progress Note, Physician Chief Complaint: Not responding to verbal commands History of Present Illness: On respirator Hb 6.5 1Unit blood is ordered Cr 3 noted - Current Medication List Current Medications: Active Medications Acetaminophen (Ofirmev Injection -) 1,000 mg IVPB Q6H PRN PRN Reason: FEVER Last Admin: 01/24/17 16:32 Dose: 1,000 mg Albuterol/Ipratropium (Duoneb -) 1 amp NEB QIDR [facility] Last Admin: 01/29/17 06:41 Dose: 1 amp Chlorhexidine Gluconate (Hibiclens For Decolonization -) 1 applic TP HS [facility] Last Admin: 01/28/17 21:24 Dose: 1 applic Heparin Sodium (Porcine) (Heparin -) 1,000 unit IVPUSH PRN PRN PRN Reason: Heparin Last Admin: 01/28/17 09:19 Dose: 1,000 unit Heparin Sodium (Porcine) (Heparin -) 5,000 unit IVPUSH PRN PRN PRN Reason: Heparin Last Admin: 01/17/17 07:41 Dose: 5,000 unit Famotidine/Sodium Chloride (Pepcid 20 Mg Premixed Ivpb -) 50 mls @ 100 mls/hr IVPB BID [facility] Last Admin: 01/29/17 09:11 Dose: 100 mls/hr Fluconazole (Diflucan 200 Mg/D5w Premixed Ivpb -) 100 mls @ 100 mls/hr IVPB DAILY [facility] Last Admin: 01/29/17 09:11 Dose: 100 mls/hr Heparin Sodium/Dextrose (Heparin Infusion -) 500 mls @ 20 mls/hr IVPB TITR DAVID ; 1,000 UNITS/HR PRN Reason: Protocol Last Admin: 01/28/17 17:01 Dose: 26 mls/hr Meropenem 1 gm/ Dextrose 100 mls @ 100 mls/hr IVPB BID@0500,1700 DAVID PRN Reason: Protocol Last Admin: 01/29/17 06:00 Dose: 100 mls/hr Propofol (Diprivan -) 100 mls @ 3.486 mls/hr IVPB TITR DAVID; 5 MCG/KG/MIN PRN Reason: Protocol Last Admin: 01/28/17 17:02 Dose: 7 mls/hr Norepinephrine Bitartrate 8, (000 mcg/ Dextrose) 500 mls @ 18.75 mls/hr IV TITR DAVID; 5 MCG/MIN PRN Reason: Protocol Last Admin: 01/28/17 11:00 Dose: Not Given Piperacillin Sod/Tazobactam Sod (Zosyn 2.25gm Ivpb (Pre-Docked)) 50 mls @ 100 mls/hr IVPB Q6H-IV DAVID PRN Reason: Protocol Last Admin: 01/29/17 08:44 Dose: 100 mls/hr Furosemide 100 mg/ Sodium (Chloride) 50 mls @ 5 mls/hr IVPB TITR DAVID PRN Reason: 10 MG/HR Metoprolol Tartrate (Lopressor Injection -) 5 mg IVPB Q8H-IV [facility] Last Admin: 01/29/17 09:26 Dose: Not Given Sevelamer Carbonate (Renvela Powder Packet -) 0.8 gm NGT TIDCM [facility] Last Admin: 01/29/17 08:43 Dose: 0.8 gm - Objective Vital Signs: Vital Signs Temperature 98.9 F 01/29/17 06:00 Pulse Rate 94 H 01/29/17 06:00 Respiratory Rate 22 01/29/17 08:15 Blood Pressure 120/48 01/29/17 06:00 O2 Sat by Pulse Oximetry (%) 100 01/29/17 08:15 Constitutional: Yes: Calm Eyes: Yes: WNL Neck: Yes: WNL Cardiovascular: Yes: Regular Rate and Rhythm Respiratory: Yes: Mechanically Ventilated ...Rectal Exam: Yes: Deferred Musculoskeletal: Yes: Muscle Weakness Edema: LUE: 1+, RUE: 1+, LLE: 1+, RLE: 1+ Wound/Incision: Yes: Clean/Dry Neurological: Yes: Lethargy Labs: CBC, BMP 01/29/17 05:50 01/29/17 05:50 INR, PTT INR 1.16 (0.82-1.09) H 01/29/17 05:50 - ....Imaging X-ray: Report Reviewed Assessment/Plan Continue ICU care
[2017-01-29] MEDS: FUROSEMIDE INJECTION 100 MG in SODIUM CHLORIDE 40 ML IVPB SCH (10:00)
[2017-01-29] MEDS: NOREPINEPHRINE BITARTRATE 8,000 MCG in DEXTROSE 5%-WATER - 492 ML IV SCH (10:45)
--- NOTE | 2017-01-29 11:59 | PN ---
Teaching Attending Note Name of Resident: Arya Cook ATTENDING PHYSICIAN STATEMENT I saw and evaluated the patient. I reviewed the resident's note and discussed the case with the resident. I agree with the resident's findings and plan as documented. SUBJECTIVE: Patient seen and examined in the bedside. Remains intubated and sedated on Propofol. No pressors. FiO2 40% and PEEP 7. (+) Dark liquid stools noted in ostomy. (+) No change in character in JAMES material CXR : Rotated / No gross change Intake & Output 01/26/17 01/27/17 01/28/17 01/29/17 23:59 23:59 23:59 23:59 Intake Total 2794 1933 2770.0 626 Output Total 880 1680 1075 335 Balance 8394 061 7768.0 291 Weight 257 lb 15.053 oz 272 lb 0.807 oz 275 lb 12.772 oz 276 lb 3.827 oz Last Vital Signs Temp Pulse Resp BP Pulse Ox 98.8 F 100 H 13 117/42 95 01/29/17 08:00 01/29/17 10:16 01/29/17 10:30 01/29/17 08:00 01/29/17 10:30 Active Medications Acetaminophen (Ofirmev Injection -) 1,000 mg IVPB Q6H PRN PRN Reason: FEVER Last Admin: 01/24/17 16:32 Dose: 1,000 mg Albuterol/Ipratropium (Duoneb -) 1 amp NEB QIDR [facility] Last Admin: 01/29/17 11:48 Dose: 1 amp Chlorhexidine Gluconate (Hibiclens For Decolonization -) 1 applic TP HS [facility] Last Admin: 01/28/17 21:24 Dose: 1 applic Heparin Sodium (Porcine) (Heparin -) 1,000 unit IVPUSH PRN PRN PRN Reason: Heparin Last Admin: 01/28/17 09:19 Dose: 1,000 unit Heparin Sodium (Porcine) (Heparin -) 5,000 unit IVPUSH PRN PRN PRN Reason: Heparin Last Admin: 01/17/17 07:41 Dose: 5,000 unit Famotidine/Sodium Chloride (Pepcid 20 Mg Premixed Ivpb -) 50 mls @ 100 mls/hr IVPB BID [facility] Last Admin: 01/29/17 09:11 Dose: 100 mls/hr Fluconazole (Diflucan 200 Mg/D5w Premixed Ivpb -) 100 mls @ 100 mls/hr IVPB DAILY [facility] Last Admin: 01/29/17 09:11 Dose: 100 mls/hr Heparin Sodium/Dextrose (Heparin Infusion -) 500 mls @ 20 mls/hr IVPB TITR [facility] ; 1,000 UNITS/HR PRN Reason: Protocol Last Admin: 01/29/17 07:00 Dose: 28 mls/hr Meropenem 1 gm/ Dextrose 100 mls @ 100 mls/hr IVPB BID@0500,1700 DAVID PRN Reason: Protocol Last Admin: 01/29/17 06:00 Dose: 100 mls/hr Propofol (Diprivan -) 100 mls @ 3.486 mls/hr IVPB TITR [facility]ID; 5 MCG/KG/MIN PRN Reason: Protocol Last Admin: 01/28/17 17:02 Dose: 7 mls/hr Norepinephrine Bitartrate 8, (000 mcg/ Dextrose) 500 mls @ 18.75 mls/hr IV TITR [facility]ID; 5 MCG/MIN PRN Reason: Protocol Last Admin: 01/28/17 11:00 Dose: Not Given Piperacillin Sod/Tazobactam Sod (Zosyn 2.25gm Ivpb (Pre-Docked)) 50 mls @ 100 mls/hr IVPB Q6H-IV [facility]ID PRN Reason: Protocol Last Admin: 01/29/17 08:44 Dose: 100 mls/hr Furosemide 100 mg/ Sodium (Chloride) 50 mls @ 5 mls/hr IVPB TITR [facility]ID PRN Reason: 10 MG/HR Metoprolol Tartrate (Lopressor Injection -) 5 mg IVPB Q8H-IV [facility] Last Admin: 01/29/17 09:26 Dose: Not Given Sevelamer Carbonate (Renvela Powder Packet -) 0.8 gm NGT TIDCM [facility] Last Admin: 01/29/17 08:43 Dose: 0.8 gm Constitutional: Yes: Intubated, sedated Eyes: Yes: (-) Pallor (-) Icterus HENT: Yes: Normocephalic Neck: Yes: Supple, Trachea Midline Cardiovascular: Yes: Tachycardia, Pulse Irregular, S1, S2 Respiratory: Yes: Bilateral scattered Rhonchi and crackles Gastrointestinal: Yes: Soft, (+) BS, brownish discharge from drain, incision C/D /I, ostomy pink with dark output Genitourinary: Yes: Jennings Present Extremities: Yes: WNL Edema: No Integumentary: Yes: Tenting Wound/Incision: Yes: Clean/Dry Neurological: Yes: Alert, non-focal Psychiatric: Yes: Cooperative Labs: Laboratory Results - last 24 hr 01/28/17 01/29/17 01/29/17 18:45 02:15 05:50 WBC 13.7 H RBC 2.00 L Hgb 6.5 L* Hct 20.1 L MCV 100.6 H MCH 32.2 MCHC 32.1 RDW 15.4 Plt Count 235 MPV 9.9 INR PTT (Actin FS) 47.8 H 53.0 H Puncture Site ABG pH ABG pCO2 at Pt Temp ABG pO2 at Pt Temp ABG HCO3 ABG O2 Sat (Measured) ABG O2 Content ABG Base Excess Jose A Test O2 Delivery Device Oxygen Flow Rate Vent Mode Vent Rate Mechanical Rate PEEP Pressure Support Vent Sodium Potassium Chloride Carbon Dioxide Anion Gap BUN Creatinine Creat Clearance w eGFR Random Glucose Calcium Phosphorus Magnesium Total Bilirubin AST ALT Alkaline Phosphatase Total Protein Albumin Crossmatch 01/29/17 01/29/17 01/29/17 05:50 05:50 05:50 WBC RBC Hgb Hct MCV MCH MCHC RDW Plt Count MPV INR 1.16 H PTT (Actin FS) 61.9 H Puncture Site ABG pH ABG pCO2 at Pt Temp ABG pO2 at Pt Temp ABG HCO3 ABG O2 Sat (Measured) ABG O2 Content ABG Base Excess Jose A Test O2 Delivery Device Oxygen Flow Rate Vent Mode Vent Rate Mechanical Rate PEEP Pressure Support Vent Sodium 135 L Potassium 4.5 Chloride 101 Carbon Dioxide 23 Anion Gap 11 BUN 77 H Creatinine 3.0 H Creat Clearance w eGFR 14.94 Random Glucose 101 Calcium 7.8 L Phosphorus 7.8 H Magnesium 2.3 Total Bilirubin 0.4 AST 20 D ALT 13 Alkaline Phosphatase 82 Total Protein 4.6 L Albumin 1.3 L Crossmatch 01/29/17 01/29/17 07:15 09:00 WBC RBC Hgb Hct MCV MCH MCHC RDW Plt Count MPV INR PTT (Actin FS) Puncture Site Left radial ABG pH 7.36 ABG pCO2 at Pt Temp 38.3 ABG pO2 at Pt Temp 86.0 ABG HCO3 21.3 L ABG O2 Sat (Measured) 96.6 ABG O2 Content 12.0 L ABG Base Excess -3.2 L Jose A Test Positive O2 Delivery Device Mec.vent Oxygen Flow Rate 45% Vent Mode A/c Vent Rate 22 Mechanical Rate Esprit PEEP 7.0 Pressure Support Vent 450 Sodium Potassium Chloride Carbon Dioxide Anion Gap BUN Creatinine Creat Clearance w eGFR Random Glucose Calcium Phosphorus Magnesium Total Bilirubin AST ALT Alkaline Phosphatase Total Protein Albumin Crossmatch See Detail Assessment/Plan Intra-abdominal collection Perforated diverticulitis S/P Sigmoid resection with colostomy. Diverticulosis Suspected Pulmonary vascular congestion Peritonitis History of PE/DVT JG / ATN Monitor drainage Strict I&O Lighten Sedation Lasix drip If no significant urine output --> Trial of Dobutamine Continue feeds as tolerated IV Heparin SBTs as tolerated Family discussions for GOC. Will need to discuss the possibility of a Trach early next week Dr Anglin Critical Care Time Total Critical Care Time: 40 Critical Care Statement: The care of this patient involved high complexity decision making to prevent further life threatening deterioration of the patient 's condition and/or to evaluate & treat vital organ system(s) failure or risk of failure.
--- NOTE | 2017-01-29 12:50 | PN ---
Progress Note (short form) - Note Progress Note: Renal Follow up for JG Pt seen and examined in the ICU intubated and sedated on the vent FiO2 is 45% Urine output ~1L, remains grossly positive on Lasix gtt Vital Signs Temperature 98.8 F 01/29/17 08:00 Pulse Rate 100 H 01/29/17 10:16 Respiratory Rate 13 01/29/17 10:30 Blood Pressure 117/42 01/29/17 08:00 O2 Sat by Pulse Oximetry (%) 95 01/29/17 10:30 Intake & Output 01/26/17 01/27/17 01/28/17 01/29/17 23:59 23:59 23:59 23:59 Intake Total 2794 1933 2770.0 626 Output Total 880 1680 1075 335 Balance 1968 576 3116.0 291 Weight 257 lb 15.053 oz 272 lb 0.807 oz 275 lb 12.772 oz 276 lb 3.827 oz Gen: intubated on vent CVS: RRR Lungs: Dec BS throughout the lung dimas Abd: soft NT/ND Ext: 2+ edema upper ext and lower ext CBC, BMP 01/29/17 05:50 01/29/17 05:50 Laboratory Tests 01/29/17 05:50 Calcium 7.8 L Phosphorus 7.8 H Albumin 1.3 L Current Medications Acetaminophen (Ofirmev Injection -) 1,000 mg IVPB Q6H PRN PRN Reason: FEVER Last Admin: 01/24/17 16:32 Dose: 1,000 mg Albuterol/Ipratropium (Duoneb -) 1 amp NEB QIDR [facility] Last Admin: 01/29/17 11:48 Dose: 1 amp Chlorhexidine Gluconate (Hibiclens For Decolonization -) 1 applic TP HS [facility] Last Admin: 01/28/17 21:24 Dose: 1 applic Heparin Sodium (Porcine) (Heparin -) 1,000 unit IVPUSH PRN PRN PRN Reason: Heparin Last Admin: 01/28/17 09:19 Dose: 1,000 unit Heparin Sodium (Porcine) (Heparin -) 5,000 unit IVPUSH PRN PRN PRN Reason: Heparin Last Admin: 01/17/17 07:41 Dose: 5,000 unit Famotidine/Sodium Chloride (Pepcid 20 Mg Premixed Ivpb -) 50 mls @ 100 mls/hr IVPB BID [facility] Last Admin: 01/29/17 09:11 Dose: 100 mls/hr Fluconazole (Diflucan 200 Mg/D5w Premixed Ivpb -) 100 mls @ 100 mls/hr IVPB DAILY [facility] Last Admin: 01/29/17 09:11 Dose: 100 mls/hr Heparin Sodium/Dextrose (Heparin Infusion -) 500 mls @ 20 mls/hr IVPB TITR DAVID ; 1,000 UNITS/HR PRN Reason: Protocol Last Admin: 01/29/17 07:00 Dose: 28 mls/hr Meropenem 1 gm/ Dextrose 100 mls @ 100 mls/hr IVPB BID@0500,1700 DAVID PRN Reason: Protocol Last Admin: 01/29/17 06:00 Dose: 100 mls/hr Propofol (Diprivan -) 100 mls @ 3.486 mls/hr IVPB TITR DAVID; 5 MCG/KG/MIN PRN Reason: Protocol Last Admin: 01/28/17 17:02 Dose: 7 mls/hr Norepinephrine Bitartrate 8, (000 mcg/ Dextrose) 500 mls @ 18.75 mls/hr IV TITR DAVID; 5 MCG/MIN PRN Reason: Protocol Last Admin: 01/28/17 11:00 Dose: Not Given Piperacillin Sod/Tazobactam Sod (Zosyn 2.25gm Ivpb (Pre-Docked)) 50 mls @ 100 mls/hr IVPB Q6H-IV DAVID PRN Reason: Protocol Last Admin: 01/29/17 08:44 Dose: 100 mls/hr Furosemide 100 mg/ Sodium (Chloride) 50 mls @ 5 mls/hr IVPB TITR DAVID PRN Reason: 10 MG/HR Dobutamine HCl 250,000 mcg/ (Sodium Chloride) 250 mls @ 37.59 mls/hr IV TITR DAVID; 5 MCG/KG/MIN PRN Reason: Protocol Metoprolol Tartrate (Lopressor Injection -) 5 mg IVPB Q8H-IV [facility] Last Admin: 01/29/17 09:26 Dose: Not Given Sevelamer Carbonate (Renvela Powder Packet -) 0.8 gm NGT TIDCM [facility] Last Admin: 01/29/17 08:43 Dose: 0.8 gm A/P 81 year old woman with PMhx of CKD? (Atrophic Kidney seen on US which is a chronic finding), Diverticulosis, DVT/PE on Warfarin, Hypertension who presented with Abd pain and found to have perforated bowel with diverticulitis s /p bowel resection with colostomy with JG with Cr of 2. #Non-oliguric acute kidney injury in likely underlying CKD on Lasix gtt, but remains grossly positve and anasarca w/o improvement Lasix increased to 10mg per hour, if urine output w/o signifincat improvement would start Dobutamine gtt to improve cardiac output keep MAP > 65 CVP goal 10-12 (should improve with PRBC transfusion) #Hyperphospahtemia continue renvela change tube feeds to low phos feeds (Nephro) #Anemia transfuse as needed per ICU protocol #Sepsis/Shock/Perforated Abd viscus Continue ICU care Jair Medley DO Problem List - Problems (1) Perforated bowel Code(s): K63.1 - PERFORATION OF INTESTINE (NONTRAUMATIC) (2) Sepsis Code(s): A41.9 - SEPSIS, UNSPECIFIED ORGANISM Qualifiers: Qualified Code(s): A41.9 - Sepsis, unspecified organism (3) Acute renal failure (ARF) Code(s): N17.9 - ACUTE KIDNEY FAILURE, UNSPECIFIED (4) CKD (chronic kidney disease) Code(s): N18.9 - CHRONIC KIDNEY DISEASE, UNSPECIFIED (5) Hypertension Code(s): I10 - ESSENTIAL (PRIMARY) HYPERTENSION (6) Diverticulosis Code(s): K57.90 - DVRTCLOS OF INTEST, PART UNSP, W/O PERF OR ABSCESS W/O BLEED
--- NOTE | 2017-01-29 13:24 | PN ---
Progress Note, Physician History of Present Illness: patient seen and examined at bedside patient sedated and intubated remains afebrile - Current Medication List Current Medications: Active Medications Acetaminophen (Ofirmev Injection -) 1,000 mg IVPB Q6H PRN PRN Reason: FEVER Last Admin: 01/24/17 16:32 Dose: 1,000 mg Albuterol/Ipratropium (Duoneb -) 1 amp NEB QIDR DAVID Last Admin: 01/29/17 11:48 Dose: 1 amp Chlorhexidine Gluconate (Hibiclens For Decolonization -) 1 applic TP HS DAVID Last Admin: 01/28/17 21:24 Dose: 1 applic Heparin Sodium (Porcine) (Heparin -) 1,000 unit IVPUSH PRN PRN PRN Reason: Heparin Last Admin: 01/28/17 09:19 Dose: 1,000 unit Heparin Sodium (Porcine) (Heparin -) 5,000 unit IVPUSH PRN PRN PRN Reason: Heparin Last Admin: 01/17/17 07:41 Dose: 5,000 unit Famotidine/Sodium Chloride (Pepcid 20 Mg Premixed Ivpb -) 50 mls @ 100 mls/hr IVPB BID [facility] Last Admin: 01/29/17 09:11 Dose: 100 mls/hr Fluconazole (Diflucan 200 Mg/D5w Premixed Ivpb -) 100 mls @ 100 mls/hr IVPB DAILY [facility] Last Admin: 01/29/17 09:11 Dose: 100 mls/hr Heparin Sodium/Dextrose (Heparin Infusion -) 500 mls @ 20 mls/hr IVPB TITR DAVID ; 1,000 UNITS/HR PRN Reason: Protocol Last Admin: 01/29/17 07:00 Dose: 28 mls/hr Meropenem 1 gm/ Dextrose 100 mls @ 100 mls/hr IVPB BID@0500,1700 DAVID PRN Reason: Protocol Last Admin: 01/29/17 06:00 Dose: 100 mls/hr Propofol (Diprivan -) 100 mls @ 3.486 mls/hr IVPB TITR DAVID; 5 MCG/KG/MIN PRN Reason: Protocol Last Admin: 01/28/17 17:02 Dose: 7 mls/hr Norepinephrine Bitartrate 8, (000 mcg/ Dextrose) 500 mls @ 18.75 mls/hr IV TITR DAVID; 5 MCG/MIN PRN Reason: Protocol Last Admin: 01/28/17 11:00 Dose: Not Given Piperacillin Sod/Tazobactam Sod (Zosyn 2.25gm Ivpb (Pre-Docked)) 50 mls @ 100 mls/hr IVPB Q6H-IV DAVID PRN Reason: Protocol Last Admin: 01/29/17 08:44 Dose: 100 mls/hr Furosemide 100 mg/ Sodium (Chloride) 50 mls @ 5 mls/hr IVPB TITR DAVID PRN Reason: 10 MG/HR Dobutamine HCl 250,000 mcg/ (Sodium Chloride) 250 mls @ 37.59 mls/hr IV TITR DAVID; 5 MCG/KG/MIN PRN Reason: Protocol Metoprolol Tartrate (Lopressor Injection -) 5 mg IVPB Q8H-IV DAVID Last Admin: 01/29/17 09:26 Dose: Not Given Sevelamer Carbonate (Renvela Powder Packet -) 0.8 gm NGT TIDCM DAVID Last Admin: 01/29/17 08:43 Dose: 0.8 gm - Objective Vital Signs: Vital Signs Temperature 98.8 F 01/29/17 08:00 Pulse Rate 100 H 01/29/17 10:16 Respiratory Rate 13 01/29/17 10:30 Blood Pressure 117/42 01/29/17 08:00 O2 Sat by Pulse Oximetry (%) 95 01/29/17 10:30 Constitutional: Yes: Other (sedated) Eyes: Yes: Other ( right pupil larger than left-normal per family. both are sluggishly reactive to light) HENT: Yes: Normocephalic Neck: Yes: Supple, Trachea Midline Cardiovascular: Yes: RRR, S1, S2 Respiratory: Yes: Other (bibasilar crackles) Gastrointestinal: Yes: Soft, +Bowel Sounds, Other (incision C/D/I abdomen soft appropriately tender ostomy pink with good function. left JAMES drain with purulent drainage right JAMES drain less purulent) Genitourinary: Yes: Jennings Present Extremities: Yes: WNL Edema: yes bilateral upper and lower extremity edema Wound/Incision: Yes: Clean/Dry Neurological: Yes: sedated and intubated Labs: CBC, BMP 01/29/17 05:50 01/29/17 05:50 INR, PTT INR 1.16 (0.82-1.09) H 01/29/17 05:50 Assessment/Plan 81F with a history of diverticulosis presents to the ED with perforated diverticulitis now post op s/p sigmoid resection with colostomy. perforated diverticulitis: patient is currently septic Source is from the abdomen. cultures noted-strep viridans and e. coli grew from culutres from abdomen. GPB anarobe is also growing will follow up with ID CT scan from 01/26/2017 show there is still an abscess that has decreased in size. f/u surgical team for further recommendations continue meropenem and diflucan per ID. Zosyn f/u ID change central line today #1 pain control PRN respiratory acidosis with superimposed metabolic acidosis: resolved Macrocytic anemia: B12 levels high Folate wnl Anemia: Hb 6.5 transfuse 2 units PRBCs acute on chronic respiratory failure:post-operative respiratory failure patient's ventilatory requirements are decreasing at this time ABG this morning much improved Post-op NSTEMI: cardiology consult appreciated likely from a combination of demand and decreased clearance from acute kidney injury on heparin gtt systolic CHF with severely reduced EF: lasix gtt increase to 10mg/hr start dobutamine history of DVT/PE: coumadin on hold for now on heparin gtt monitor PTT per protocol JG: creatinine 30-with elevation of BUN to 69. likely from a combination of heart failure and sepsis nephrology consult appreciated continue to trend lasix gtt to 10mg/hr f/u nephrology for further recommendations-start dobutamine Afib: continue rate control with metoprolol 5mg IV q8h PRN hold while on pressors continue heparin gtt HLD: not on medications at this time will restart lipitor at home dose when appropriate FEN: stop IVF hyperphosphatemia: continue sevelamer tube feeds @ goal 35ml/hr changed to nepro PPx: SCDs on heparin gtt for full dose anticoagulation Pepcid PT consult when able to participate CCTime 35 min Palliative care consult for goals of care-will talk to family about the possibility of tracheostomy
--- NOTE | 2017-01-29 14:25 | PROC ---
Central Line Insertion Indication: CVP Monitoring, Poor Venous Access, Sepsis, Vasopressor Risks and Benefits Explained: Yes Consent on Chart: Yes Central Line: Triple Lumen Catheter Anesthesia: 1% Lidocaine Sterile Technique: Yes Ultrasound Guided Assistance: Yes Position: Right Internal Jugular Post Insertion: Yes: Bilateral Breath Sounds, Chest X-Ray Ordered Sterile Dressing Applied: Yes
--- NOTE | 2017-01-29 15:07 | PN ---
Progress Note (short form) - Note Progress Note: Attending Surgeon POD #20 Remains in ICU on vent and sedated; being weaned slowly; on TF VSS AF abdominal exam w/o change labs noted IMP: s/p Hartmans for perforated diverticulitis w/ abscess formation PLAN: Continue same; case d/w family and Dr. Anglin. Taqueria Prado MD FACS
[2017-01-29] MEDS ORDERED: DOBUTAMINE 250 MG/D5W - 250 ML ONE ×2 (15:29→23:00)
[2017-01-29] MEDS: DOBUTAMINE HCL 250,000 MCG in SODIUM CHLORIDE 230 ML IV SCH (15:52)
--- NOTE | 2017-01-29 17:52 | PN ---
Progress Note, Physician History of Present Illness: continues to be intubated and sedated patient wbc has come down - Current Medication List Current Medications: Active Medications Acetaminophen (Ofirmev Injection -) 1,000 mg IVPB Q6H PRN PRN Reason: FEVER Last Admin: 01/24/17 16:32 Dose: 1,000 mg Albuterol/Ipratropium (Duoneb -) 1 amp NEB QIDR DAVID Last Admin: 01/29/17 17:24 Dose: 1 amp Chlorhexidine Gluconate (Hibiclens For Decolonization -) 1 applic TP HS DAVID Last Admin: 01/28/17 21:24 Dose: 1 applic Heparin Sodium (Porcine) (Heparin -) 1,000 unit IVPUSH PRN PRN PRN Reason: Heparin Last Admin: 01/28/17 09:19 Dose: 1,000 unit Heparin Sodium (Porcine) (Heparin -) 5,000 unit IVPUSH PRN PRN PRN Reason: Heparin Last Admin: 01/17/17 07:41 Dose: 5,000 unit Famotidine/Sodium Chloride (Pepcid 20 Mg Premixed Ivpb -) 50 mls @ 100 mls/hr IVPB BID [facility] Last Admin: 01/29/17 09:11 Dose: 100 mls/hr Fluconazole (Diflucan 200 Mg/D5w Premixed Ivpb -) 100 mls @ 100 mls/hr IVPB DAILY [facility] Last Admin: 01/29/17 09:11 Dose: 100 mls/hr Heparin Sodium/Dextrose (Heparin Infusion -) 500 mls @ 20 mls/hr IVPB TITR DAVID ; 1,000 UNITS/HR PRN Reason: Protocol Last Admin: 01/29/17 17:31 Dose: Not Given Meropenem 1 gm/ Dextrose 100 mls @ 100 mls/hr IVPB BID@0500,1700 DAVID PRN Reason: Protocol Last Admin: 01/29/17 17:27 Dose: 100 mls/hr Propofol (Diprivan -) 100 mls @ 3.486 mls/hr IVPB TITR DAVID; 5 MCG/KG/MIN PRN Reason: Protocol Last Admin: 01/28/17 17:02 Dose: 7 mls/hr Norepinephrine Bitartrate 8, (000 mcg/ Dextrose) 500 mls @ 18.75 mls/hr IV TITR DAVID; 5 MCG/MIN PRN Reason: Protocol Last Admin: 01/29/17 10:45 Dose: Not Given Piperacillin Sod/Tazobactam Sod (Zosyn 2.25gm Ivpb (Pre-Docked)) 50 mls @ 100 mls/hr IVPB Q6H-IV DAVID PRN Reason: Protocol Last Admin: 01/29/17 15:50 Dose: 100 mls/hr Furosemide 100 mg/ Sodium (Chloride) 50 mls @ 5 mls/hr IVPB TITR DAVID PRN Reason: 10 MG/HR Last Admin: 01/29/17 10:00 Dose: 5 mls/hr Dobutamine HCl 250,000 mcg/ (Sodium Chloride) 250 mls @ 37.59 mls/hr IV TITR DAVID; 5 MCG/KG/MIN PRN Reason: Protocol Last Admin: 01/29/17 15:52 Dose: 37.59 mls/hr Metoprolol Tartrate (Lopressor Injection -) 5 mg IVPB Q8H-IV DAVID Last Admin: 01/29/17 17:00 Dose: 5 mg Sevelamer Carbonate (Renvela Powder Packet -) 0.8 gm NGT TIDCM [facility] Last Admin: 01/29/17 17:26 Dose: 0.8 gm - Objective Vital Signs: Vital Signs Temperature 98.8 F 01/29/17 14:38 Pulse Rate 120 H 01/29/17 17:00 Respiratory Rate 26 H 01/29/17 16:40 Blood Pressure 133/60 01/29/17 17:00 O2 Sat by Pulse Oximetry (%) 95 01/29/17 10:30 Constitutional: Yes: Calm, Other Neck: Yes: Supple, Other Cardiovascular: Yes: Pulse Irregular Respiratory: Yes: Intubated, Mechanically Ventilated Gastrointestinal: Yes: Normal Bowel Sounds, Soft, Other Musculoskeletal: Yes: WNL Extremities: Yes: WNL Wound/Incision: Yes: Dressing Dry and Intact, Other (draiange tube in place) Neurological: Yes: Other Psychiatric: Yes: Other Labs: CBC, BMP 01/29/17 05:50 01/29/17 05:50 INR, PTT INR 1.16 (0.82-1.09) H 01/29/17 05:50 Assessment/Plan 81 y/o old with multiple medical problems with perforated bowel post op Perforated bowel Peritonitis Sepsis s/p ex-lap with sigmoid resection, colostomy Resolving JG Lactic acidosis AF h/o DVT/PE septic shock plan continue current management rest continue abx nutrition monitor wbc rest continue current mgmt and as per icu stable cc tim40 min
[2017-01-29] MEDS: CHLORHEXIDINE GLUCONATE 4% CLEANSER FOR DECOLONIZATION TP SCH (22:00)
[2017-01-30] MEDS ORDERED: PROPOFOL 100 ML ONE (00:56)
[2017-01-30] MEDS: PIPERACILLIN/TAZOB 2.25 GM 50 ML IVPB SCH ×4 (03:01→21:14)
[2017-01-30] MEDS: PROPOFOL 100 ML IVPB SCH ×2 (03:01→09:41)
[2017-01-30] MEDS: METOPROLOL TARTRATE 5 MG/5 ML VIAL IVPB SCH ×3 (03:03→18:27)
[2017-01-30] MEDS: MEROPENEM 1 GM in DEXTROSE 5%-WATER - 100 ML IVPB SCH ×2 (05:30→18:00)
[2017-01-30] MEDS ORDERED: PT OWN MED DRAWER 7, Y5N ONE ×4 (06:10→19:37)
[2017-01-30 06:40] LABS: BASOPHIL 0.4 % (0-2.0); EOSINOPHIL 0.6 % (0-4.5); MCH 31.9 pg (25.7-33.7); MCHC 33.1 g/dl (32.0-36.0); MEAN CELL VOLUME 96.5 fl (80-96); MEAN PLT VOLUME 9.6 fl (7.5-11.1); NEUTROPHILS 90.1 % (42.8-82.8); PLATELET COUNT 216 K/MM3 (134-434); RDW 15.8 % (11.6-15.6); WHITE BLOOD COUNT 18.8 K/mm3 (4.0-10.0)
[2017-01-30 06:51] LABS: INR 1.13 (0.82-1.09); PROTHROMBIN TIME (PATIENT) 12.5 SEC (9.98-11.88)
[2017-01-30 06:53] LABS: ACTIVATED PTT 50.4 SECONDS (26.9-34.4)
[2017-01-30 07:11] LABS: ALBUMIN 1.4 g/dl (3.4-5.0); ANION GAP 14 (8-16); BILIRUBIN,TOTAL 1.6 mg/dL (0.2-1.0); CALCIUM 7.9 mg/dL (8.5-10.1); CO2 22 mmol/L (21-32); CREATININE 3.1 mg/dL (0.55-1.02); GLUCOSE,RANDOM 94 mg/dL (74-106); MAGNESIUM 2.3 mg/dL (1.8-2.4); PHOSPHOROUS 7.6 mg/dL (2.5-4.9); SGOT/AST 27 U/L (15-37); SGPT/ALT 11 U/L (12-78); TOT PROT 4.8 g/dl (6.4-8.2)
[2017-01-30 07:12] LABS: ALK PHOS 97 U/L (45-117)
[2017-01-30 07:33] LABS: ARTERIAL BLD GAS O2 SATURATION 96.8 % (90-98.9); ARTERIAL BLOOD GAS BASE EXCESS -4.7 meq/l (-2-2); ARTERIAL BLOOD GAS HCO3 19.9 meq/L (22-26); ARTERIAL BLOOD GAS PO2 84.6 mmHg (68-100); ARTERIAL BLOOD GAS pH 7.35 (7.35-7.45)
[2017-01-30 07:34] LABS: ALLENS TEST POSITIVE; ART PUNCT SITE LEFT RADIAL; LPM/O2% 45%; MECH. VENT. YES; PT. ON O2? YES; TYPE OF O2 VENTILATOR; VENT RATE 22; VT/PRESS 450
[2017-01-30] MEDS: FLUCONAZOLE 200 MG/D5W 100 ML IVPB SCH (09:24)
[2017-01-30] MEDS: FAMOTIDINE 20 MG/50 ML IVPB 50 ML IVPB SCH ×2 (09:25→21:18)
[2017-01-30] MEDS: FUROSEMIDE INJECTION 100 MG in SODIUM CHLORIDE 40 ML IVPB SCH (09:41)
[2017-01-30] MEDS: SEVELAMER CARBONATE 0.8 GM POWDER PACKET NGT SCH ×3 (09:41→18:26)
--- NOTE | 2017-01-30 10:53 | PN ---
Progress Note, Physician Chief Complaint: Intubated for respiratory failure History of Present Illness: 81 yrs old admitted with c/o abd pain, nausea and vomiting with sepsis secondary to perforated sigmoid diverticulitis underwent explanatory laprotomy , sigmoid colon resection and colostomy on 01/09/2017 ,underwent IR guide aspiration of abscess today intubated for respiratory failure. on 01/20/2017 - Current Medication List Current Medications: Active Medications Acetaminophen (Ofirmev Injection -) 1,000 mg IVPB Q6H PRN PRN Reason: FEVER Last Admin: 01/24/17 16:32 Dose: 1,000 mg Albuterol/Ipratropium (Duoneb -) 1 amp NEB QIDR [facility] Last Admin: 01/29/17 23:03 Dose: 1 amp Chlorhexidine Gluconate (Hibiclens For Decolonization -) 1 applic TP HS [facility] Last Admin: 01/29/17 22:00 Dose: 1 applic Heparin Sodium (Porcine) (Heparin -) 1,000 unit IVPUSH PRN PRN PRN Reason: Heparin Last Admin: 01/28/17 09:19 Dose: 1,000 unit Heparin Sodium (Porcine) (Heparin -) 5,000 unit IVPUSH PRN PRN PRN Reason: Heparin Last Admin: 01/17/17 07:41 Dose: 5,000 unit Famotidine/Sodium Chloride (Pepcid 20 Mg Premixed Ivpb -) 50 mls @ 100 mls/hr IVPB BID [facility] Last Admin: 01/30/17 09:25 Dose: 100 mls/hr Fluconazole (Diflucan 200 Mg/D5w Premixed Ivpb -) 100 mls @ 100 mls/hr IVPB DAILY [facility] Last Admin: 01/30/17 09:24 Dose: 100 mls/hr Heparin Sodium/Dextrose (Heparin Infusion -) 500 mls @ 20 mls/hr IVPB TITR DAVID ; 1,000 UNITS/HR PRN Reason: Protocol Last Admin: 01/29/17 17:31 Dose: Not Given Meropenem 1 gm/ Dextrose 100 mls @ 100 mls/hr IVPB BID@0500,1700 DAVID PRN Reason: Protocol Last Admin: 01/30/17 05:30 Dose: 100 mls/hr Propofol (Diprivan -) 100 mls @ 3.486 mls/hr IVPB TITR DAVID; 5 MCG/KG/MIN PRN Reason: Protocol Last Admin: 01/30/17 09:41 Dose: 20.916 mls/hr Piperacillin Sod/Tazobactam Sod (Zosyn 2.25gm Ivpb (Pre-Docked)) 50 mls @ 100 mls/hr IVPB Q6H-IV DAVID PRN Reason: Protocol Last Admin: 01/30/17 09:24 Dose: 100 mls/hr Furosemide 100 mg/ Sodium (Chloride) 50 mls @ 5 mls/hr IVPB TITR DAVID PRN Reason: 10 MG/HR Last Admin: 01/30/17 09:41 Dose: Not Given Dobutamine HCl 250,000 mcg/ (Sodium Chloride) 250 mls @ 37.59 mls/hr IV TITR DAVID; 5 MCG/KG/MIN PRN Reason: Protocol Last Admin: 01/29/17 15:52 Dose: 37.59 mls/hr Metoprolol Tartrate (Lopressor Injection -) 5 mg IVPB Q8H-IV DAVID Last Admin: 01/30/17 09:26 Dose: 5 mg Sevelamer Carbonate (Renvela Powder Packet -) 0.8 gm NGT TIDCM DAVID Last Admin: 01/30/17 09:41 Dose: 0.8 gm - Objective Vital Signs: Vital Signs Temperature 98.5 F 01/30/17 06:00 Pulse Rate 103 H 01/30/17 09:26 Respiratory Rate 22 01/30/17 09:01 Blood Pressure 118/67 01/30/17 09:26 O2 Sat by Pulse Oximetry (%) 95 01/30/17 09:01 General: Elderly F s/p intubated , unresponsive, not responding to verbal command. HEENT: ET tube at place, MM moist, PERRLA, NECK; NO NVD, No Bruit, Carotids + CHEST: B/L equal AE CVS: S1 S2 R no m/g/r ABD: S/p surgery, colostomy beg at place, mild distention, BS+ EXT: ++ edema feet, no calf tenderness, Pulses + EXCHANGE ARCHITECT: not communicative, not following command. Labs: CBC, BMP 01/30/17 06:10 01/30/17 06:10 INR, PTT INR 1.13 (0.82-1.09) 01/30/17 06:10 CBC,CMP WBC 18.8 K/mm3 (4.0-10.0) H D 01/30/17 06:10 Corrected WBC (auto) 15.24 K/mm3 01/21/17 21:30 RBC 2.90 M/mm3 (3.60-5.2) L D 01/30/17 06:10 Hgb 9.3 GM/dL (10.7-15.3) L D 01/30/17 06:10 Hct 28.0 % (32.4-45.2) L D 01/30/17 06:10 MCV 96.5 fl (80-96) H 01/30/17 06:10 MCH 31.9 pg (25.7-33.7) 01/30/17 06:10 MCHC 33.1 g/dl (32.0-36.0) 01/30/17 06:10 RDW 15.8 % (11.6-15.6) H 01/30/17 06:10 Plt Count 216 K/MM3 (134-434) 01/30/17 06:10 MPV 9.6 fl (7.5-11.1) 01/30/17 06:10 Neutrophils % 90.1 % (42.8-82.8) H 01/30/17 06:10 Lymphocytes % 3.2 % (8-40) L D 01/30/17 06:10 Monocytes % 5.7 % (3.8-10.2) 01/30/17 06:10 Eosinophils % 0.6 % (0-4.5) D 01/30/17 06:10 Basophils % 0.4 % (0-2.0) D 01/30/17 06:10 Band Neutrophils 6.0 % (0-10) 01/21/17 21:30 Metamyelocytes 1 % (0-2) 01/21/17 08:20 Myelocytes 2 % (0-2) D 01/24/17 09:35 Nucleated RBCs 3 % (0-0) H 01/24/17 09:35 Differential Comment Manual diff done 01/24/17 09:35 Reactive Lymphocytes 9 % (0-80) 01/19/17 05:15 Platelet Estimate Adequate (NORMAL) 01/24/17 09:35 Platelet Comment Few giant plts 01/21/17 21:30 Platelet Comment No clotting detected 01/17/17 05:30 Polychromasia Few 01/18/17 05:15 Hypochromic-Microcytic Few 01/18/17 05:15 Poikilocytosis 1+ 01/17/17 05:30 Anisocytosis 1+ 01/17/17 05:30 Morphology Comment Slide scanned 01/21/17 21:30 Sodium 134 mmol/L (136-145) L 01/30/17 06:10 Potassium 4.3 mmol/L (3.5-5.1) 01/30/17 06:10 Chloride 98 mmol/L (98-107) 01/30/17 06:10 Carbon Dioxide 22 mmol/L (21-32) 01/30/17 06:10 Anion Gap 14 (8-16) 01/30/17 06:10 BUN 77 mg/dL (7-18) H 01/30/17 06:10 Creatinine 3.1 mg/dL (0.55-1.02) H 01/30/17 06:10 Creat Clearance w eGFR 14.39 (>60) 01/30/17 06:10 Random Glucose 94 mg/dL (74-106) 01/30/17 06:10 Lactic Acid 1.3 mmol/L (0.4-2.0) 01/17/17 13:35 Calcium 7.9 mg/dL (8.5-10.1) L 01/30/17 06:10 Phosphorus 7.6 mg/dL (2.5-4.9) H 01/30/17 06:10 Magnesium 2.3 mg/dL (1.8-2.4) 01/30/17 06:10 Total Bilirubin 1.6 mg/dL (0.2-1.0) H D 01/30/17 06:10 AST 27 U/L (15-37) D 01/30/17 06:10 ALT 11 U/L (12-78) L 01/30/17 06:10 Alkaline Phosphatase 97 U/L (45-117) 01/30/17 06:10 Creatine Kinase 46 IU/L (26-192) 01/15/17 05:45 Creatine Kinase Index 1.3 % (0.0-5.0) 01/11/17 05:20 CK-MB (CK-2) 2.718 ng/mL (0.5-3.6) 01/11/17 05:20 Troponin I 0.88 ng/ml (0.00-0.05) H* 01/15/17 05:45 B-Natriuretic Peptide 10531.7 pg/ml (5-450) H 01/15/17 05:45 Total Protein 4.8 g/dl (6.4-8.2) L 01/30/17 06:10 Albumin 1.4 g/dl (3.4-5.0) L 01/30/17 06:10 Vitamin B12 1587 pg/ml (180-914) H 01/28/17 06:05 Serum Folate 7 ng/ml (3.1-17.5) 01/28/17 06:05 Problem List - Problems (1) Diverticulitis of large intestine with perforation and abscess without bleeding Assessment/Plan: S/P Sepsis, Explanatory laprotomy on 07/12/2016 F/U surgery recommendations, NPO , cont Meropenem and Vancomycine. Code(s): K57.20 - DVTRCLI OF LG INT W PERFORATION AND ABSCESS W/O BLEEDING (2) Left ventricular systolic dysfunction Assessment/Plan: F/U cardiology recommendation. Code(s): I51.9 - HEART DISEASE, UNSPECIFIED (3) Respiratory failure Assessment/Plan: s/p intubation saturation well Code(s): J96.90 - RESPIRATORY FAILURE, UNSP, UNSP W HYPOXIA OR HYPERCAPNIA Qualifiers: Qualified Code(s): J96.01 - Acute respiratory failure with hypoxia (4) Abdominal abscess Assessment/Plan: s/p I and D at present in sepsis. Code(s): K65.1 - PERITONEAL ABSCESS (5) Acute renal failure (ARF) Assessment/Plan: Patient developed JG Sr Creat around 3c F/u Nephrology recommendations Code(s): N17.9 - ACUTE KIDNEY FAILURE, UNSPECIFIED
[2017-01-30] MEDS: ALBUTEROL SO4 2.5/IPRATROPIUM 0.5 INH SOL 3 ML VIAL.NEB. NEB SCH ×3 (11:18→23:44)
[2017-01-30] MEDS ORDERED: DOBUTAMINE 250 MG/D5W - 250 ML ONE ×2 (11:31→19:36)
--- NOTE | 2017-01-30 11:43 | PN ---
Teaching Attending Note Name of Resident: Arya Cook ATTENDING PHYSICIAN STATEMENT I saw and evaluated the patient. I reviewed the resident's note and discussed the case with the resident. I agree with the resident's findings and plan as documented. SUBJECTIVE: Patient seen and examined in the ICU. Remains intubated and sedated on Propofol. No pressors. FiO2 40% and PEEP 7. (+) Dark liquid stools noted in ostomy. (+) No gross change in character in JAMES material CXR : Rotated / No gross change Intake & Output 01/27/17 01/28/17 01/29/17 01/30/17 23:59 23:59 23:59 23:59 Intake Total 1933 2770.0 2572 1630 Output Total 1680 1075 865 750 Balance 253 1695.0 1707 880 Weight 272 lb 0.807 oz 275 lb 12.772 oz 276 lb 3.827 oz 282 lb 6.594 oz Last Vital Signs Temp Pulse Resp BP Pulse Ox 98.5 F 103 H 22 118/67 95 01/30/17 06:00 01/30/17 09:26 01/30/17 09:01 01/30/17 09:26 01/30/17 09:01 Active Medications Acetaminophen (Ofirmev Injection -) 1,000 mg IVPB Q6H PRN PRN Reason: FEVER Last Admin: 01/24/17 16:32 Dose: 1,000 mg Albuterol/Ipratropium (Duoneb -) 1 amp NEB QIDR [facility] Last Admin: 01/29/17 23:03 Dose: 1 amp Chlorhexidine Gluconate (Hibiclens For Decolonization -) 1 applic TP HS [facility] Last Admin: 01/29/17 22:00 Dose: 1 applic Heparin Sodium (Porcine) (Heparin -) 1,000 unit IVPUSH PRN PRN PRN Reason: Heparin Last Admin: 01/28/17 09:19 Dose: 1,000 unit Heparin Sodium (Porcine) (Heparin -) 5,000 unit IVPUSH PRN PRN PRN Reason: Heparin Last Admin: 01/17/17 07:41 Dose: 5,000 unit Famotidine/Sodium Chloride (Pepcid 20 Mg Premixed Ivpb -) 50 mls @ 100 mls/hr IVPB BID [facility] Last Admin: 01/30/17 09:25 Dose: 100 mls/hr Fluconazole (Diflucan 200 Mg/D5w Premixed Ivpb -) 100 mls @ 100 mls/hr IVPB DAILY [facility] Last Admin: 01/30/17 09:24 Dose: 100 mls/hr Heparin Sodium/Dextrose (Heparin Infusion -) 500 mls @ 20 mls/hr IVPB TITR DAVID ; 1,000 UNITS/HR PRN Reason: Protocol Last Admin: 01/29/17 17:31 Dose: Not Given Meropenem 1 gm/ Dextrose 100 mls @ 100 mls/hr IVPB BID@0500,1700 DAVID PRN Reason: Protocol Last Admin: 01/30/17 05:30 Dose: 100 mls/hr Propofol (Diprivan -) 100 mls @ 3.486 mls/hr IVPB TITR DAVID; 5 MCG/KG/MIN PRN Reason: Protocol Last Admin: 01/30/17 09:41 Dose: 20.916 mls/hr Piperacillin Sod/Tazobactam Sod (Zosyn 2.25gm Ivpb (Pre-Docked)) 50 mls @ 100 mls/hr IVPB Q6H-IV DAVID PRN Reason: Protocol Last Admin: 01/30/17 09:24 Dose: 100 mls/hr Furosemide 100 mg/ Sodium (Chloride) 50 mls @ 5 mls/hr IVPB TITR DAVID PRN Reason: 10 MG/HR Last Admin: 01/30/17 09:41 Dose: Not Given Dobutamine HCl 250,000 mcg/ (Sodium Chloride) 250 mls @ 37.59 mls/hr IV TITR DAVID; 5 MCG/KG/MIN PRN Reason: Protocol Last Admin: 01/29/17 15:52 Dose: 37.59 mls/hr Metoprolol Tartrate (Lopressor Injection -) 5 mg IVPB Q8H-IV [facility]ID Last Admin: 01/30/17 09:26 Dose: 5 mg Sevelamer Carbonate (Renvela Powder Packet -) 0.8 gm NGT TIDCM [facility] Last Admin: 01/30/17 09:41 Dose: 0.8 gm Constitutional: Yes: Intubated, sedated Eyes: Yes: (-) Pallor (-) Icterus HENT: Yes: Normocephalic Neck: Yes: Supple, Trachea Midline Cardiovascular: Yes: Tachycardia, Pulse Irregular, S1, S2 Respiratory: Yes: Bilateral scattered Rhonchi and crackles Gastrointestinal: Yes: Soft, (+) BS, brownish discharge from drain, incision C/D /I, ostomy pink with dark output Genitourinary: Yes: Jennings Present Extremities: Yes: WNL Edema: No Integumentary: Yes: Tenting Wound/Incision: Yes: Clean/Dry Neurological: Yes: Alert, non-focal Psychiatric: Yes: Cooperative Labs: Laboratory Results - last 24 hr 01/29/17 01/30/17 01/30/17 09:00 06:10 06:10 WBC 18.8 H D RBC 2.90 L D Hgb 9.3 L D Hct 28.0 L D MCV 96.5 H MCH 31.9 MCHC 33.1 RDW 15.8 H Plt Count 216 MPV 9.6 Neutrophils % 90.1 H Lymphocytes % 3.2 L D Monocytes % 5.7 Eosinophils % 0.6 D Basophils % 0.4 D INR 1.13 PTT (Actin FS) 50.4 H Puncture Site ABG pH ABG pCO2 at Pt Temp ABG pO2 at Pt Temp ABG HCO3 ABG O2 Sat (Measured) ABG O2 Content ABG Base Excess Jose A Test O2 Delivery Device Oxygen Flow Rate Vent Mode Vent Rate Mechanical Rate PEEP Pressure Support Vent Sodium Potassium Chloride Carbon Dioxide Anion Gap BUN Creatinine Creat Clearance w eGFR Random Glucose Calcium Phosphorus Magnesium Total Bilirubin AST ALT Alkaline Phosphatase Total Protein Albumin Blood Type O POSITIVE Antibody Screen Positive H Antibody Identification TNP Crossmatch See Detail 01/30/17 01/30/17 06:10 07:13 WBC RBC Hgb Hct MCV MCH MCHC RDW Plt Count MPV Neutrophils % Lymphocytes % Monocytes % Eosinophils % Basophils % INR PTT (Actin FS) Puncture Site Left radial ABG pH 7.35 ABG pCO2 at Pt Temp 37.2 ABG pO2 at Pt Temp 84.6 ABG HCO3 19.9 L ABG O2 Sat (Measured) 96.8 ABG O2 Content 12.4 L ABG Base Excess -4.7 L Jose A Test Positive O2 Delivery Device Ventilator Oxygen Flow Rate 45% Vent Mode A/c Vent Rate 22 Mechanical Rate Yes PEEP 7.0 Pressure Support Vent 450 Sodium 134 L Potassium 4.3 Chloride 98 Carbon Dioxide 22 Anion Gap 14 BUN 77 H Creatinine 3.1 H Creat Clearance w eGFR 14.39 Random Glucose 94 Calcium 7.9 L Phosphorus 7.6 H Magnesium 2.3 Total Bilirubin 1.6 H D AST 27 D ALT 11 L Alkaline Phosphatase 97 Total Protein 4.8 L Albumin 1.4 L Blood Type Antibody Screen Antibody Identification Crossmatch Assessment/Plan Intra-abdominal collection Perforated diverticulitis S/P Sigmoid resection with colostomy. Diverticulosis Suspected Pulmonary vascular congestion Peritonitis History of PE/DVT JG / ATN Monitor drainage Strict I&O Check C diff Sedation vacations with SBTs as tolerated Lasix drip Dobutamine drip Continue feeds as tolerated IV Heparin SBTs as tolerated Family discussions for GOC. I discussed with them at length her overall condition and the possibility of a Trach early next week. They will consider. Dr Anglin Critical Care Time Total Critical Care Time: 40 Critical Care Statement: The care of this patient involved high complexity decision making to prevent further life threatening deterioration of the patient 's condition and/or to evaluate & treat vital organ system(s) failure or risk of failure.
--- NOTE | 2017-01-30 11:53 | PN ---
Progress Note, Physician History of Present Illness: patient seen and examined at bedside patient sedated and intubated remains afebrile - Current Medication List Current Medications: Active Medications Acetaminophen (Ofirmev Injection -) 1,000 mg IVPB Q6H PRN PRN Reason: FEVER Last Admin: 01/24/17 16:32 Dose: 1,000 mg Albuterol/Ipratropium (Duoneb -) 1 amp NEB QIDR [facility] Last Admin: 01/30/17 11:18 Dose: 1 amp Chlorhexidine Gluconate (Hibiclens For Decolonization -) 1 applic TP HS [facility] Last Admin: 01/29/17 22:00 Dose: 1 applic Heparin Sodium (Porcine) (Heparin -) 1,000 unit IVPUSH PRN PRN PRN Reason: Heparin Last Admin: 01/28/17 09:19 Dose: 1,000 unit Heparin Sodium (Porcine) (Heparin -) 5,000 unit IVPUSH PRN PRN PRN Reason: Heparin Last Admin: 01/17/17 07:41 Dose: 5,000 unit Famotidine/Sodium Chloride (Pepcid 20 Mg Premixed Ivpb -) 50 mls @ 100 mls/hr IVPB BID [facility] Last Admin: 01/30/17 09:25 Dose: 100 mls/hr Fluconazole (Diflucan 200 Mg/D5w Premixed Ivpb -) 100 mls @ 100 mls/hr IVPB DAILY [facility] Last Admin: 01/30/17 09:24 Dose: 100 mls/hr Heparin Sodium/Dextrose (Heparin Infusion -) 500 mls @ 20 mls/hr IVPB TITR DAVID ; 1,000 UNITS/HR PRN Reason: Protocol Last Admin: 01/29/17 17:31 Dose: Not Given Meropenem 1 gm/ Dextrose 100 mls @ 100 mls/hr IVPB BID@0500,1700 DAVID PRN Reason: Protocol Last Admin: 01/30/17 05:30 Dose: 100 mls/hr Propofol (Diprivan -) 100 mls @ 3.486 mls/hr IVPB TITR DAVID; 5 MCG/KG/MIN PRN Reason: Protocol Last Admin: 01/30/17 09:41 Dose: 20.916 mls/hr Piperacillin Sod/Tazobactam Sod (Zosyn 2.25gm Ivpb (Pre-Docked)) 50 mls @ 100 mls/hr IVPB Q6H-IV DAVID PRN Reason: Protocol Last Admin: 01/30/17 09:24 Dose: 100 mls/hr Furosemide 100 mg/ Sodium (Chloride) 50 mls @ 5 mls/hr IVPB TITR DAVID PRN Reason: 10 MG/HR Last Admin: 01/30/17 09:41 Dose: Not Given Dobutamine HCl 250,000 mcg/ (Sodium Chloride) 250 mls @ 37.59 mls/hr IV TITR DAVID; 5 MCG/KG/MIN PRN Reason: Protocol Last Admin: 01/29/17 15:52 Dose: 37.59 mls/hr Metoprolol Tartrate (Lopressor Injection -) 5 mg IVPB Q8H-IV DAVID Last Admin: 01/30/17 09:26 Dose: 5 mg Sevelamer Carbonate (Renvela Powder Packet -) 0.8 gm NGT TIDCM [facility]ID Last Admin: 01/30/17 09:41 Dose: 0.8 gm - Objective Vital Signs: Vital Signs Temperature 98.5 F 01/30/17 06:00 Pulse Rate 103 H 01/30/17 09:26 Respiratory Rate 24 01/30/17 11:18 Blood Pressure 118/67 01/30/17 09:26 O2 Sat by Pulse Oximetry (%) 95 01/30/17 09:01 Constitutional: Yes: Other (sedated) Eyes: Yes: Other ( right pupil larger than left-normal per family. both are sluggishly reactive to light) HENT: Yes: Normocephalic. Small avulsion on right side lateral to nose where tape was placed to hold ET tube Neck: Yes: Supple, Trachea Midline Cardiovascular: Yes: RRR, S1, S2 Respiratory: Yes: Other (bibasilar crackles) Gastrointestinal: Yes: Soft, +Bowel Sounds, Other (incision C/D/I abdomen soft appropriately tender ostomy pink with good function. Watery diarrhea with high output. left JAMES drain with purulent drainage right JAMES drain less purulent) Genitourinary: Yes: Jennings Present Extremities: Yes: WNL Edema: yes bilateral upper and lower extremity edema Wound/Incision: Yes: Clean/Dry Neurological: Yes: sedated and intubated Labs: CBC, BMP 01/30/17 06:10 01/30/17 06:10 INR, PTT INR 1.13 (0.82-1.09) 01/30/17 06:10 Assessment/Plan 81F with a history of diverticulosis presents to the ED with perforated diverticulitis now post op s/p sigmoid resection with colostomy. perforated diverticulitis: patient is currently septic Source is from the abdomen. cultures noted-strep viridans and e. coli grew from culutres from abdomen. GPB anarobe is also growing will follow up with ID CT scan from 01/26/2017 show there is still an abscess that has decreased in size. f/u surgical team for further recommendations continue meropenem and diflucan per ID. Zosyn f/u ID central line day #2 pain control PRN respiratory acidosis with superimposed metabolic acidosis: resolved Macrocytic anemia: B12 levels high Folate wnl Anemia: appropriate response after 2 units PRBCs Hb now stable at 9.3 continue to trend daily acute on chronic respiratory failure:post-operative respiratory failure patient's ventilatory requirements are decreasing at this time ABG this morning much improved Post-op NSTEMI: cardiology consult appreciated likely from a combination of demand and decreased clearance from acute kidney injury on heparin gtt systolic CHF with severely reduced EF: lasix gtt 10mg/hr dobutamine gtt continue per cardiology history of DVT/PE: coumadin on hold for now on heparin gtt monitor PTT per protocol JG: creatinine 3.1-with elevation of BUN to 77. likely from a combination of heart failure and sepsis nephrology consult appreciated continue to trend lasix gtt to 10mg/hr f/u nephrology for further recommendations-continue lasix and dobutamine Afib: continue rate control with metoprolol 5mg IV q8h PRN hold while on pressors continue heparin gtt HLD: not on medications at this time will restart lipitor at home dose when appropriate FEN: off IVF hyperphosphatemia: continue sevelamer tube feeds @ goal 35ml/hr -nepro PPx: SCDs on heparin gtt for full dose anticoagulation Pepcid PT consult when able to participate Bactracin to face where there is a small avulsion of skin from tape holding ET tube CCTime 35 min Palliative care consult for goals of care-spoke to family about the possibility of tracheostomy on thursday they will consider tracheostomy vs comfort care
--- NOTE | 2017-01-30 12:22 | PN ---
Progress Note (short form) - Note Progress Note: Renal Follow up for JG Pt seen and examined in the ICU on the Vent, FiO2 is 45% urine output improved s/p Lasix gtt increase and start of Dobutamine gtt Vital Signs Temperature 98.5 F 01/30/17 06:00 Pulse Rate 103 H 01/30/17 09:26 Respiratory Rate 24 01/30/17 11:18 Blood Pressure 118/67 01/30/17 09:26 O2 Sat by Pulse Oximetry (%) 95 01/30/17 09:01 Intake & Output 01/27/17 01/28/17 01/29/17 01/30/17 23:59 23:59 23:59 23:59 Intake Total 1933 2770.0 2572 1630 Output Total 1680 1075 865 750 Balance 253 1695.0 1707 880 Weight 272 lb 0.807 oz 275 lb 12.772 oz 276 lb 3.827 oz 282 lb 6.594 oz Gen: intubated on vent CVS: RRR Lungs: Dec BS throughout the lung dimas Abd: soft NT/ND Ext: 2+ edema upper ext and lower ext CBC, BMP 01/30/17 06:10 01/30/17 06:10 Laboratory Tests 01/30/17 06:10 Calcium 7.9 L Phosphorus 7.6 H Magnesium 2.3 Albumin 1.4 L Current Medications Acetaminophen (Ofirmev Injection -) 1,000 mg IVPB Q6H PRN PRN Reason: FEVER Last Admin: 01/24/17 16:32 Dose: 1,000 mg Albuterol/Ipratropium (Duoneb -) 1 amp NEB QIDR [facility] Last Admin: 01/30/17 11:18 Dose: 1 amp Bacitracin (Bacitracin -) 1 applic TP BID DAVID Chlorhexidine Gluconate (Hibiclens For Decolonization -) 1 applic TP HS [facility]ID Last Admin: 01/29/17 22:00 Dose: 1 applic Heparin Sodium (Porcine) (Heparin -) 1,000 unit IVPUSH PRN PRN PRN Reason: Heparin Last Admin: 01/28/17 09:19 Dose: 1,000 unit Heparin Sodium (Porcine) (Heparin -) 5,000 unit IVPUSH PRN PRN PRN Reason: Heparin Last Admin: 01/17/17 07:41 Dose: 5,000 unit Famotidine/Sodium Chloride (Pepcid 20 Mg Premixed Ivpb -) 50 mls @ 100 mls/hr IVPB BID [facility] Last Admin: 01/30/17 09:25 Dose: 100 mls/hr Fluconazole (Diflucan 200 Mg/D5w Premixed Ivpb -) 100 mls @ 100 mls/hr IVPB DAILY [facility] Last Admin: 01/30/17 09:24 Dose: 100 mls/hr Heparin Sodium/Dextrose (Heparin Infusion -) 500 mls @ 20 mls/hr IVPB TITR DAVID ; 1,000 UNITS/HR PRN Reason: Protocol Last Admin: 01/29/17 17:31 Dose: Not Given Meropenem 1 gm/ Dextrose 100 mls @ 100 mls/hr IVPB BID@0500,1700 DAVID PRN Reason: Protocol Last Admin: 01/30/17 05:30 Dose: 100 mls/hr Propofol (Diprivan -) 100 mls @ 3.486 mls/hr IVPB TITR DAVID; 5 MCG/KG/MIN PRN Reason: Protocol Last Admin: 01/30/17 09:41 Dose: 20.916 mls/hr Piperacillin Sod/Tazobactam Sod (Zosyn 2.25gm Ivpb (Pre-Docked)) 50 mls @ 100 mls/hr IVPB Q6H-IV DAVID PRN Reason: Protocol Last Admin: 01/30/17 09:24 Dose: 100 mls/hr Furosemide 100 mg/ Sodium (Chloride) 50 mls @ 5 mls/hr IVPB TITR DAVID PRN Reason: 10 MG/HR Last Admin: 01/30/17 09:41 Dose: Not Given Dobutamine HCl 250,000 mcg/ (Sodium Chloride) 250 mls @ 37.59 mls/hr IV TITR DAVID; 5 MCG/KG/MIN PRN Reason: Protocol Last Admin: 01/29/17 15:52 Dose: 37.59 mls/hr Metoprolol Tartrate (Lopressor Injection -) 5 mg IVPB Q8H-IV DAVID Last Admin: 01/30/17 09:26 Dose: 5 mg Sevelamer Carbonate (Renvela Powder Packet -) 0.8 gm NGT TIDCM [facility]ID Last Admin: 01/30/17 09:41 Dose: 0.8 gm A/P 81 year old woman with PMhx of CKD? (Atrophic Kidney seen on US which is a chronic finding), Diverticulosis, DVT/PE on Warfarin, Hypertension who presented with Abd pain and found to have perforated bowel with diverticulitis s /p bowel resection with colostomy with JG with Cr of 2. #Non-oliguric acute kidney injury in likely underlying CKD Renal function stable, pt with improving urine output with Lasix and Dobutamine gtt continue current therapy for now Keep MAP> 65 no indication for BI ARCHITECT at this time Dose all meds for eGFR < 15 #Hyperphospahtemia continue renvela low phos tube feeds #Anemia s/p transfusion yesterday #Sepsis/Shock/Perforated Abd viscus Continue ICU care Jair Medley DO Problem List - Problems (1) Perforated bowel Code(s): K63.1 - PERFORATION OF INTESTINE (NONTRAUMATIC) (2) Sepsis Code(s): A41.9 - SEPSIS, UNSPECIFIED ORGANISM Qualifiers: Qualified Code(s): A41.9 - Sepsis, unspecified organism (3) Acute renal failure (ARF) Code(s): N17.9 - ACUTE KIDNEY FAILURE, UNSPECIFIED (4) CKD (chronic kidney disease) Code(s): N18.9 - CHRONIC KIDNEY DISEASE, UNSPECIFIED (5) Hypertension Code(s): I10 - ESSENTIAL (PRIMARY) HYPERTENSION (6) Diverticulosis Code(s): K57.90 - DVRTCLOS OF INTEST, PART UNSP, W/O PERF OR ABSCESS W/O BLEED
[2017-01-30] MEDS: DOBUTAMINE HCL 250,000 MCG in SODIUM CHLORIDE 230 ML IV SCH (12:45)
[2017-01-30] MEDS: BACITRACIN 15 GM TUBE TOPICAL OINTMENT TP SCH ×2 (15:00→22:30)
[2017-01-30] MEDS: HEPARIN INFUSION - 500 ML IVPB SCH (18:28)
[2017-01-30] MEDS ORDERED: FUROSEMIDE 100 MG/10 ML INJECTABLE VIAL ONE (19:35)
[2017-01-30] MEDS ORDERED: HEPARIN INFUSION - 500 ML IVPB ONE (19:36)
[2017-01-30] MEDS: CHLORHEXIDINE GLUCONATE 4% CLEANSER FOR DECOLONIZATION TP SCH (21:18)
--- NOTE | 2017-01-30 22:24 | PN ---
Progress Note, Physician History of Present Illness: continues to be intubated and sedated wbc continues to fluctuate - Current Medication List Current Medications: Active Medications Acetaminophen (Ofirmev Injection -) 1,000 mg IVPB Q6H PRN PRN Reason: FEVER Last Admin: 01/24/17 16:32 Dose: 1,000 mg Albuterol/Ipratropium (Duoneb -) 1 amp NEB QIDR [facility] Last Admin: 01/30/17 17:42 Dose: 1 amp Bacitracin (Bacitracin -) 1 applic TP BID [facility] Last Admin: 01/30/17 15:00 Dose: 1 applic Chlorhexidine Gluconate (Hibiclens For Decolonization -) 1 applic TP HS [facility] Last Admin: 01/30/17 21:18 Dose: 1 applic Heparin Sodium (Porcine) (Heparin -) 1,000 unit IVPUSH PRN PRN PRN Reason: Heparin Last Admin: 01/28/17 09:19 Dose: 1,000 unit Heparin Sodium (Porcine) (Heparin -) 5,000 unit IVPUSH PRN PRN PRN Reason: Heparin Last Admin: 01/17/17 07:41 Dose: 5,000 unit Famotidine/Sodium Chloride (Pepcid 20 Mg Premixed Ivpb -) 50 mls @ 100 mls/hr IVPB BID [facility] Last Admin: 01/30/17 21:18 Dose: 100 mls/hr Fluconazole (Diflucan 200 Mg/D5w Premixed Ivpb -) 100 mls @ 100 mls/hr IVPB DAILY [facility] Last Admin: 01/30/17 09:24 Dose: 100 mls/hr Heparin Sodium/Dextrose (Heparin Infusion -) 500 mls @ 20 mls/hr IVPB TITR DAVID ; 1,000 UNITS/HR PRN Reason: Protocol Last Admin: 01/30/17 18:28 Dose: Not Given Meropenem 1 gm/ Dextrose 100 mls @ 100 mls/hr IVPB BID@0500,1700 DAVID PRN Reason: Protocol Last Admin: 01/30/17 18:00 Dose: 100 mls/hr Propofol (Diprivan -) 100 mls @ 3.486 mls/hr IVPB TITR DAVID; 5 MCG/KG/MIN PRN Reason: Protocol Last Admin: 01/30/17 09:41 Dose: 20.916 mls/hr Piperacillin Sod/Tazobactam Sod (Zosyn 2.25gm Ivpb (Pre-Docked)) 50 mls @ 100 mls/hr IVPB Q6H-IV DAVID PRN Reason: Protocol Last Admin: 01/30/17 21:14 Dose: 100 mls/hr Furosemide 100 mg/ Sodium (Chloride) 50 mls @ 5 mls/hr IVPB TITR DAVID PRN Reason: 10 MG/HR Last Admin: 01/30/17 09:41 Dose: Not Given Dobutamine HCl 250,000 mcg/ (Sodium Chloride) 250 mls @ 37.59 mls/hr IV TITR DAVID; 5 MCG/KG/MIN PRN Reason: Protocol Last Admin: 01/30/17 12:45 Dose: 37.59 mls/hr Metoprolol Tartrate (Lopressor Injection -) 5 mg IVPB Q8H-IV DAVID Last Admin: 01/30/17 18:27 Dose: 5 mg Sevelamer Carbonate (Renvela Powder Packet -) 0.8 gm NGT TIDCM DAVID Last Admin: 01/30/17 18:26 Dose: 0.8 gm - Objective Vital Signs: Vital Signs Temperature 99.2 F 01/30/17 20:00 Pulse Rate 100 H 01/30/17 20:00 Respiratory Rate 22 01/30/17 22:00 Blood Pressure 101/52 01/30/17 20:00 O2 Sat by Pulse Oximetry (%) 95 01/30/17 21:00 Constitutional: Yes: Other Cardiovascular: Yes: Pulse Irregular Respiratory: Yes: Intubated, Mechanically Ventilated Gastrointestinal: Yes: Soft, Other (draiange tube in place) Musculoskeletal: Yes: Other Extremities: Yes: Other Neurological: Yes: Other Psychiatric: Yes: Other Labs: CBC, BMP 01/30/17 06:10 01/30/17 06:10 INR, PTT INR 1.13 (0.82-1.09) 01/30/17 06:10 Assessment/Plan 81 y/o old with multiple medical problems with perforated bowel post op Perforated bowel Peritonitis Sepsis s/p ex-lap with sigmoid resection, colostomy Resolving JG Lactic acidosis AF h/o DVT/PE septic shock plan continue current management rest continue abx nutrition monitor wbc rest continue current mgmt and as per icu stable cc tim40 min
[2017-01-31] MEDS ORDERED: DOBUTAMINE 250 MG/D5W - 250 ML ONE ×3 (01:00→17:28)
[2017-01-31] MEDS: PIPERACILLIN/TAZOB 2.25 GM 50 ML IVPB SCH ×4 (02:05→21:33)
[2017-01-31] MEDS: METOPROLOL TARTRATE 5 MG/5 ML VIAL IVPB SCH ×3 (02:07→18:59)
[2017-01-31] MEDS: ALBUTEROL SO4 2.5/IPRATROPIUM 0.5 INH SOL 3 ML VIAL.NEB. NEB SCH ×4 (05:49→23:30)
[2017-01-31] MEDS: MEROPENEM 1 GM in DEXTROSE 5%-WATER - 100 ML IVPB SCH ×2 (05:57→16:38)
[2017-01-31 06:42] LABS: MCH 31.5 pg (25.7-33.7); MCHC 32.6 g/dl (32.0-36.0); MEAN CELL VOLUME 96.8 fl (80-96); MEAN PLT VOLUME 9.5 fl (7.5-11.1); PLATELET COUNT 240 K/MM3 (134-434); RDW 16.1 % (11.6-15.6); WHITE BLOOD COUNT 14.5 K/mm3 (4.0-10.0)
[2017-01-31 06:57] LABS: INR 1.12 (0.82-1.09); PROTHROMBIN TIME (PATIENT) 12.3 SEC (9.98-11.88)
[2017-01-31 07:00] LABS: ACTIVATED PTT 56.7 SECONDS (26.9-34.4)
[2017-01-31 07:09] LABS: ALBUMIN 1.3 g/dl (3.4-5.0); ALK PHOS 107 U/L (45-117); ANION GAP 12 (8-16); BILIRUBIN,TOTAL 0.5 mg/dL (0.2-1.0); CALCIUM 7.5 mg/dL (8.5-10.1); CO2 23 mmol/L (21-32); CREATININE 3.1 mg/dL (0.55-1.02); GLUCOSE,RANDOM 77 mg/dL (74-106); MAGNESIUM 2.3 mg/dL (1.8-2.4); SGOT/AST 20 U/L (15-37); SGPT/ALT 10 U/L (12-78); TOT PROT 4.7 g/dl (6.4-8.2)
[2017-01-31 07:29] LABS: ARTERIAL BLD GAS O2 SATURATION 97.7 % (90-98.9); ARTERIAL BLOOD GAS BASE EXCESS -5.3 meq/l (-2-2); ARTERIAL BLOOD GAS HCO3 19.4 meq/L (22-26); ARTERIAL BLOOD GAS PO2 94.2 mmHg (68-100); ARTERIAL BLOOD GAS pH 7.34 (7.35-7.45)
[2017-01-31 07:35] LABS: ALLENS TEST POSITIVE; ART PUNCT SITE RIGHT BRACHIAL; LPM/O2% 45%; MECH. VENT. ESPRIT; PT. ON O2? YES; TYPE OF O2 MEC.VENT; VENT RATE 22; VT/PRESS 450
[2017-01-31] MEDS ORDERED: PT OWN MED DRAWER 7, Y5N ONE ×2 (09:36→16:22)
[2017-01-31] MEDS: SEVELAMER CARBONATE 0.8 GM POWDER PACKET NGT SCH ×3 (09:46→16:39)
[2017-01-31] MEDS: FLUCONAZOLE 200 MG/D5W 100 ML IVPB SCH (09:47)
[2017-01-31] MEDS: FAMOTIDINE 20 MG/50 ML IVPB 50 ML IVPB SCH ×2 (09:47→21:32)
[2017-01-31] MEDS: BACITRACIN 15 GM TUBE TOPICAL OINTMENT TP SCH ×2 (10:15→21:33)
[2017-01-31] MEDS ORDERED: METOLAZONE 5 MG TABLET PO ONE ×2 (10:30→16:30)
--- NOTE | 2017-01-31 10:50 | PN ---
Progress Note (short form) - Note Progress Note: PULMONARY/CCM Pt seen and examined in the ICU. Remains intubated, sedated. Tachypneic on sedation. No fevers recorded. Vented on volume assist control with 45% FiO2 PEEP 7. Last Vital Signs Temp Pulse Resp BP Pulse Ox 97.8 F 107 H 26 H 130/45 95 01/31/17 06:00 01/31/17 10:20 01/31/17 09:15 01/31/17 10:20 01/30/17 21:00 Intake & Output 01/28/17 01/29/17 01/30/17 01/31/17 23:59 23:59 23:59 23:59 Intake Total 2770.0 2572 2880 1410 Output Total 3446 547 5002 565 Balance 1695.0 1707 990 845 Weight 275 lb 12.772 oz 276 lb 3.827 oz 282 lb 6.594 oz 282 lb 10.122 oz Gen: intubated, sedated Heart: tachycardic, regular Lung: decreased breath sounds at the bases Abd: soft, +drains with purulent output Ext: + edema CBC, BMP 01/31/17 06:05 01/31/17 06:05 Active Medications Acetaminophen (Ofirmev Injection -) 1,000 mg IVPB Q6H PRN PRN Reason: FEVER Last Admin: 01/24/17 16:32 Dose: 1,000 mg Albuterol/Ipratropium (Duoneb -) 1 amp NEB QIDR [facility] Last Admin: 01/31/17 05:49 Dose: 1 amp Bacitracin (Bacitracin -) 1 applic TP BID [facility] Last Admin: 01/31/17 10:15 Dose: 1 applic Chlorhexidine Gluconate (Hibiclens For Decolonization -) 1 applic TP HS [facility] Last Admin: 01/30/17 21:18 Dose: 1 applic Heparin Sodium (Porcine) (Heparin -) 1,000 unit IVPUSH PRN PRN PRN Reason: Heparin Last Admin: 01/28/17 09:19 Dose: 1,000 unit Heparin Sodium (Porcine) (Heparin -) 5,000 unit IVPUSH PRN PRN PRN Reason: Heparin Last Admin: 01/17/17 07:41 Dose: 5,000 unit Famotidine/Sodium Chloride (Pepcid 20 Mg Premixed Ivpb -) 50 mls @ 100 mls/hr IVPB BID [facility]ID Last Admin: 01/31/17 09:47 Dose: 100 mls/hr Fluconazole (Diflucan 200 Mg/D5w Premixed Ivpb -) 100 mls @ 100 mls/hr IVPB DAILY [facility] Last Admin: 01/31/17 09:47 Dose: 100 mls/hr Heparin Sodium/Dextrose (Heparin Infusion -) 500 mls @ 20 mls/hr IVPB TITR DAVID ; 1,000 UNITS/HR PRN Reason: Protocol Last Admin: 01/30/17 18:28 Dose: Not Given Meropenem 1 gm/ Dextrose 100 mls @ 100 mls/hr IVPB BID@0500,1700 DAVID PRN Reason: Protocol Last Admin: 01/31/17 05:57 Dose: 100 mls/hr Propofol (Diprivan -) 100 mls @ 3.486 mls/hr IVPB TITR DAVID; 5 MCG/KG/MIN PRN Reason: Protocol Last Admin: 01/30/17 09:41 Dose: 20.916 mls/hr Piperacillin Sod/Tazobactam Sod (Zosyn 2.25gm Ivpb (Pre-Docked)) 50 mls @ 100 mls/hr IVPB Q6H-IV DAVID PRN Reason: Protocol Last Admin: 01/31/17 09:47 Dose: 100 mls/hr Furosemide 100 mg/ Sodium (Chloride) 50 mls @ 5 mls/hr IVPB TITR DAVID PRN Reason: 10 MG/HR Last Admin: 01/30/17 09:41 Dose: Not Given Dobutamine HCl 250,000 mcg/ (Sodium Chloride) 250 mls @ 37.59 mls/hr IV TITR DAVID; 5 MCG/KG/MIN PRN Reason: Protocol Last Admin: 01/30/17 12:45 Dose: 37.59 mls/hr Metoprolol Tartrate (Lopressor Injection -) 5 mg IVPB Q8H-IV DAVID Last Admin: 01/31/17 10:20 Dose: 5 mg Sevelamer Carbonate (Renvela Powder Packet -) 0.8 gm NGT TIDCM [facility] Last Admin: 01/31/17 09:46 Dose: 0.8 gm A/P Acute Hypoxic Respiratory Failure Perforated Diverticulitis s/p Sigmoid Resection/Colostomy 01/09 Intra-abdominal Abscess Acute on Chronic Systolic Heart Failure Acute Kidney Injury h/o DVT/PE Atrial Fibrillation - continue antibiotics - monitor drain output - surgery f/u - continue dobutamine gtt - lasix gtt - taper FiO2, PEEP to keep SpO2 >90% - continue anticoagulation - poor prognosis - continue discussions regarding goals of care and advanced directives - continue ICU monitoring critical care time spent in reviewing chart, evaluating patient and formulating plan 36 min
--- NOTE | 2017-01-31 11:06 | PN ---
Progress Note (short form) - Note Progress Note: Renal Follow up for JG Pt seen and examined in the ICU on the Vent, FiO2 is 45% on Dobutamine, Heparin, Lasix gtt good urine output no overnight events Vital Signs Temperature 97.8 F 01/31/17 06:00 Pulse Rate 107 H 01/31/17 10:20 Respiratory Rate 26 H 01/31/17 09:15 Blood Pressure 130/45 01/31/17 10:20 O2 Sat by Pulse Oximetry (%) 95 01/30/17 21:00 Intake & Output 01/28/17 01/29/17 01/30/17 01/31/17 23:59 23:59 23:59 23:59 Intake Total 2770.0 2572 2880 1410 Output Total 7771 722 7987 565 Balance 1695.0 1707 990 845 Weight 275 lb 12.772 oz 276 lb 3.827 oz 282 lb 6.594 oz 282 lb 10.122 oz Gen: intubated on vent CVS: RRR Lungs: Dec BS throughout the lung dimas Abd: soft NT/ND Ext: 2+ edema upper ext and lower ext CBC, BMP 01/31/17 06:05 01/31/17 06:05 Current Medications Acetaminophen (Ofirmev Injection -) 1,000 mg IVPB Q6H PRN PRN Reason: FEVER Last Admin: 01/24/17 16:32 Dose: 1,000 mg Albuterol/Ipratropium (Duoneb -) 1 amp NEB QIDR [facility] Last Admin: 01/31/17 05:49 Dose: 1 amp Bacitracin (Bacitracin -) 1 applic TP BID [facility] Last Admin: 01/31/17 10:15 Dose: 1 applic Chlorhexidine Gluconate (Hibiclens For Decolonization -) 1 applic TP HS [facility] Last Admin: 01/30/17 21:18 Dose: 1 applic Heparin Sodium (Porcine) (Heparin -) 1,000 unit IVPUSH PRN PRN PRN Reason: Heparin Last Admin: 01/28/17 09:19 Dose: 1,000 unit Heparin Sodium (Porcine) (Heparin -) 5,000 unit IVPUSH PRN PRN PRN Reason: Heparin Last Admin: 01/17/17 07:41 Dose: 5,000 unit Famotidine/Sodium Chloride (Pepcid 20 Mg Premixed Ivpb -) 50 mls @ 100 mls/hr IVPB BID [facility] Last Admin: 01/31/17 09:47 Dose: 100 mls/hr Fluconazole (Diflucan 200 Mg/D5w Premixed Ivpb -) 100 mls @ 100 mls/hr IVPB DAILY [facility] Last Admin: 01/31/17 09:47 Dose: 100 mls/hr Heparin Sodium/Dextrose (Heparin Infusion -) 500 mls @ 20 mls/hr IVPB TITR DAVID ; 1,000 UNITS/HR PRN Reason: Protocol Last Admin: 01/30/17 18:28 Dose: Not Given Meropenem 1 gm/ Dextrose 100 mls @ 100 mls/hr IVPB BID@0500,1700 DAVID PRN Reason: Protocol Last Admin: 01/31/17 05:57 Dose: 100 mls/hr Propofol (Diprivan -) 100 mls @ 3.486 mls/hr IVPB TITR DAVID; 5 MCG/KG/MIN PRN Reason: Protocol Last Admin: 01/30/17 09:41 Dose: 20.916 mls/hr Piperacillin Sod/Tazobactam Sod (Zosyn 2.25gm Ivpb (Pre-Docked)) 50 mls @ 100 mls/hr IVPB Q6H-IV DAVID PRN Reason: Protocol Last Admin: 01/31/17 09:47 Dose: 100 mls/hr Furosemide 100 mg/ Sodium (Chloride) 50 mls @ 5 mls/hr IVPB TITR DAVID PRN Reason: 10 MG/HR Last Admin: 01/30/17 09:41 Dose: Not Given Dobutamine HCl 250,000 mcg/ (Sodium Chloride) 250 mls @ 37.59 mls/hr IV TITR DAVID; 5 MCG/KG/MIN PRN Reason: Protocol Last Admin: 01/30/17 12:45 Dose: 37.59 mls/hr Metoprolol Tartrate (Lopressor Injection -) 5 mg IVPB Q8H-IV DAVID Last Admin: 01/31/17 10:20 Dose: 5 mg Sevelamer Carbonate (Renvela Powder Packet -) 0.8 gm NGT TIDCM [facility] Last Admin: 01/31/17 09:46 Dose: 0.8 gm A/P 81 year old woman with PMhx of CKD? (Atrophic Kidney seen on US which is a chronic finding), Diverticulosis, DVT/PE on Warfarin, Hypertension who presented with Abd pain and found to have perforated bowel with diverticulitis s /p bowel resection with colostomy with JG with Cr of 2. #Non-oliguric acute kidney failure with total body volume overload and respiratory failure Pt remains net positive with gross overload continue Lasix gtt and dobutamine gtt Will give Metolazone 5mg x 1 Goal is to keep pt net negative no acute indication for STEW[employer] DISHW[employer]ER at this time supportive care keep MAP > 65 #Sepsis/Shock/Perforated Abd viscus Continue ICU care Jair Medley DO Problem List - Problems (1) Perforated bowel Code(s): K63.1 - PERFORATION OF INTESTINE (NONTRAUMATIC) (2) Sepsis Code(s): A41.9 - SEPSIS, UNSPECIFIED ORGANISM Qualifiers: Qualified Code(s): A41.9 - Sepsis, unspecified organism (3) Acute renal failure (ARF) Code(s): N17.9 - ACUTE KIDNEY FAILURE, UNSPECIFIED (4) CKD (chronic kidney disease) Code(s): N18.9 - CHRONIC KIDNEY DISEASE, UNSPECIFIED (5) Hypertension Code(s): I10 - ESSENTIAL (PRIMARY) HYPERTENSION (6) Diverticulosis Code(s): K57.90 - DVRTCLOS OF INTEST, PART UNSP, W/O PERF OR ABSCESS W/O BLEED
--- NOTE | 2017-01-31 13:16 | PN ---
Progress Note, Physician Chief Complaint: Intubated for respiratory failure History of Present Illness: 81 yrs old admitted with c/o abd pain, nausea and vomiting with sepsis secondary to perforated sigmoid diverticulitis underwent explanatory laprotomy , sigmoid colon resection and colostomy on 01/09/2017 ,underwent IR guide aspiration of abscess today intubated for respiratory failure. on 01/20/2017 - Current Medication List Current Medications: Active Medications Acetaminophen (Ofirmev Injection -) 1,000 mg IVPB Q6H PRN PRN Reason: FEVER Last Admin: 01/24/17 16:32 Dose: 1,000 mg Albuterol/Ipratropium (Duoneb -) 1 amp NEB QIDR [facility] Last Admin: 01/31/17 11:25 Dose: 1 amp Bacitracin (Bacitracin -) 1 applic TP BID [facility] Last Admin: 01/31/17 10:15 Dose: 1 applic Chlorhexidine Gluconate (Hibiclens For Decolonization -) 1 applic TP HS [facility] Last Admin: 01/30/17 21:18 Dose: 1 applic Heparin Sodium (Porcine) (Heparin -) 1,000 unit IVPUSH PRN PRN PRN Reason: Heparin Last Admin: 01/28/17 09:19 Dose: 1,000 unit Heparin Sodium (Porcine) (Heparin -) 5,000 unit IVPUSH PRN PRN PRN Reason: Heparin Last Admin: 01/17/17 07:41 Dose: 5,000 unit Famotidine/Sodium Chloride (Pepcid 20 Mg Premixed Ivpb -) 50 mls @ 100 mls/hr IVPB BID [facility] Last Admin: 01/31/17 09:47 Dose: 100 mls/hr Fluconazole (Diflucan 200 Mg/D5w Premixed Ivpb -) 100 mls @ 100 mls/hr IVPB DAILY [facility] Last Admin: 01/31/17 09:47 Dose: 100 mls/hr Heparin Sodium/Dextrose (Heparin Infusion -) 500 mls @ 20 mls/hr IVPB TITR DAVID ; 1,000 UNITS/HR PRN Reason: Protocol Last Admin: 01/30/17 18:28 Dose: Not Given Meropenem 1 gm/ Dextrose 100 mls @ 100 mls/hr IVPB BID@0500,1700 DAVID PRN Reason: Protocol Last Admin: 01/31/17 05:57 Dose: 100 mls/hr Propofol (Diprivan -) 100 mls @ 3.486 mls/hr IVPB TITR DAVID; 5 MCG/KG/MIN PRN Reason: Protocol Last Admin: 01/30/17 09:41 Dose: 20.916 mls/hr Piperacillin Sod/Tazobactam Sod (Zosyn 2.25gm Ivpb (Pre-Docked)) 50 mls @ 100 mls/hr IVPB Q6H-IV DAVID PRN Reason: Protocol Last Admin: 01/31/17 09:47 Dose: 100 mls/hr Furosemide 100 mg/ Sodium (Chloride) 50 mls @ 5 mls/hr IVPB TITR DAVID PRN Reason: 10 MG/HR Last Admin: 01/30/17 09:41 Dose: Not Given Dobutamine HCl 250,000 mcg/ (Sodium Chloride) 250 mls @ 37.59 mls/hr IV TITR DAVID; 5 MCG/KG/MIN PRN Reason: Protocol Last Admin: 01/30/17 12:45 Dose: 37.59 mls/hr Metoprolol Tartrate (Lopressor Injection -) 5 mg IVPB Q8H-IV [facility]ID Last Admin: 01/31/17 10:20 Dose: 5 mg Sevelamer Carbonate (Renvela Powder Packet -) 0.8 gm NGT TIDCM [facility] Last Admin: 01/31/17 09:46 Dose: 0.8 gm - Objective Vital Signs: Vital Signs Temperature 97.8 F 01/31/17 06:00 Pulse Rate 107 H 01/31/17 10:20 Respiratory Rate 23 01/31/17 11:23 Blood Pressure 130/45 01/31/17 10:20 O2 Sat by Pulse Oximetry (%) 95 01/30/17 21:00 General: Elderly F s/p intubated , unresponsive, not responding to verbal command. 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 Labs: CBC, BMP 01/31/17 06:05 01/31/17 06:05 INR, PTT INR 1.12 (0.82-1.09) 01/31/17 06:05 Problem List - Problems (1) Diverticulitis of large intestine with perforation and abscess without bleeding Assessment/Plan: S/P Sepsis, Explanatory laprotomy on 07/12/2016 F/U surgery recommendations, NPO , cont Meropenem and Vancomycine. Code(s): K57.20 - DVTRCLI OF LG INT W PERFORATION AND ABSCESS W/O BLEEDING (2) Left ventricular systolic dysfunction Assessment/Plan: F/U cardiology recommendation. Code(s): I51.9 - HEART DISEASE, UNSPECIFIED (3) Respiratory failure Assessment/Plan: s/p intubation saturation well Code(s): J96.90 - RESPIRATORY FAILURE, UNSP, UNSP W HYPOXIA OR HYPERCAPNIA Qualifiers: Qualified Code(s): J96.01 - Acute respiratory failure with hypoxia (4) Abdominal abscess Assessment/Plan: s/p I and D at present in sepsis. Code(s): K65.1 - PERITONEAL ABSCESS (5) Acute renal failure (ARF) Assessment/Plan: F/U renal recommondations Code(s): N17.9 - ACUTE KIDNEY FAILURE, UNSPECIFIED
--- NOTE | 2017-01-31 13:27 | PN ---
Progress Note (short form) - Note Progress Note: Attending Surgeon POD #22 Remains in ICU on vent; TF in progress VSS AF abdominal exam w/o change; JAMES drainage decreasing IMP: s/p Hartmans for perforated diverticulitis w/ abscess PLAN: Continue as per [facility]. Taqueria Praod MD FACS
[2017-01-31] MEDS: PROPOFOL 100 ML IVPB SCH (16:39)
[2017-01-31] MEDS: FUROSEMIDE INJECTION 100 MG in SODIUM CHLORIDE 40 ML IVPB SCH (16:39)
--- NOTE | 2017-01-31 17:30 | PN ---
Progress Note, Physician History of Present Illness: Pt remains intubated, sedated - Current Medication List Current Medications: Active Medications Acetaminophen (Ofirmev Injection -) 1,000 mg IVPB Q6H PRN PRN Reason: FEVER Last Admin: 01/24/17 16:32 Dose: 1,000 mg Albuterol/Ipratropium (Duoneb -) 1 amp NEB QIDR [facility] Last Admin: 01/31/17 11:25 Dose: 1 amp Bacitracin (Bacitracin -) 1 applic TP BID [facility] Last Admin: 01/31/17 10:15 Dose: 1 applic Chlorhexidine Gluconate (Hibiclens For Decolonization -) 1 applic TP HS [facility] Last Admin: 01/30/17 21:18 Dose: 1 applic Heparin Sodium (Porcine) (Heparin -) 1,000 unit IVPUSH PRN PRN PRN Reason: Heparin Last Admin: 01/28/17 09:19 Dose: 1,000 unit Heparin Sodium (Porcine) (Heparin -) 5,000 unit IVPUSH PRN PRN PRN Reason: Heparin Last Admin: 01/17/17 07:41 Dose: 5,000 unit Famotidine/Sodium Chloride (Pepcid 20 Mg Premixed Ivpb -) 50 mls @ 100 mls/hr IVPB BID [facility] Last Admin: 01/31/17 09:47 Dose: 100 mls/hr Fluconazole (Diflucan 200 Mg/D5w Premixed Ivpb -) 100 mls @ 100 mls/hr IVPB DAILY [facility] Last Admin: 01/31/17 09:47 Dose: 100 mls/hr Heparin Sodium/Dextrose (Heparin Infusion -) 500 mls @ 20 mls/hr IVPB TITR DAVID ; 1,000 UNITS/HR PRN Reason: Protocol Last Admin: 01/30/17 18:28 Dose: Not Given Meropenem 1 gm/ Dextrose 100 mls @ 100 mls/hr IVPB BID@0500,1700 DAVID PRN Reason: Protocol Last Admin: 01/31/17 16:38 Dose: 100 mls/hr Propofol (Diprivan -) 100 mls @ 3.486 mls/hr IVPB TITR DAVID; 5 MCG/KG/MIN PRN Reason: Protocol Last Admin: 01/31/17 16:39 Dose: Not Given Piperacillin Sod/Tazobactam Sod (Zosyn 2.25gm Ivpb (Pre-Docked)) 50 mls @ 100 mls/hr IVPB Q6H-IV DAVID PRN Reason: Protocol Last Admin: 01/31/17 16:38 Dose: 100 mls/hr Furosemide 100 mg/ Sodium (Chloride) 50 mls @ 5 mls/hr IVPB TITR DAVID PRN Reason: 10 MG/HR Last Admin: 01/31/17 16:39 Dose: Not Given Dobutamine HCl 250,000 mcg/ (Sodium Chloride) 250 mls @ 37.59 mls/hr IV TITR DAVID; 5 MCG/KG/MIN PRN Reason: Protocol Last Admin: 01/30/17 12:45 Dose: 37.59 mls/hr Metoprolol Tartrate (Lopressor Injection -) 5 mg IVPB Q8H-IV [facility]ID Last Admin: 01/31/17 10:20 Dose: 5 mg Sevelamer Carbonate (Renvela Powder Packet -) 0.8 gm NGT TIDCM [facility] Last Admin: 01/31/17 16:39 Dose: 0.8 gm - Objective Vital Signs: Vital Signs Temperature 97.8 F 01/31/17 06:00 Pulse Rate 107 H 01/31/17 10:20 Respiratory Rate 25 H 01/31/17 14:15 Blood Pressure 130/45 01/31/17 10:20 O2 Sat by Pulse Oximetry (%) 96 01/31/17 09:00 Constitutional: Yes: No Distress Cardiovascular: Yes: Regular Rate and Rhythm Respiratory: Yes: Diminished (bibasilar) Gastrointestinal: Yes: Other (drain in place, colostomy functional) Edema: LLE: 1+, RLE: 1+ Wound/Incision: Yes: Clean/Dry Labs: CBC, BMP 01/31/17 06:05 01/31/17 06:05 INR, PTT INR 1.12 (0.82-1.09) 01/31/17 06:05 - ....Imaging Chest X-ray: Report Reviewed (b/l effusions, rt lung infiltrate vs atelectasis) Problem List - Problems (1) H/O partial resection of colon Code(s): Z90.49 - ACQUIRED ABSENCE OF OTHER SPECIFIED PARTS OF DIGESTIVE TRACT (2) Intra-abdominal abscess post-procedure Code(s): T81.4XXA - INFECTION FOLLOWING A PROCEDURE, INITIAL ENCOUNTER K65.1 - PERITONEAL ABSCESS Qualifiers: Qualified Code(s): T81.4XXA - Infection following a procedure, initial encounter; K65.1 - Peritoneal abscess (3) Perforated bowel Code(s): K63.1 - PERFORATION OF INTESTINE (NONTRAUMATIC) (4) Severe sepsis Code(s): A41.9 - SEPSIS, UNSPECIFIED ORGANISM R65.20 - SEVERE SEPSIS WITHOUT SEPTIC SHOCK Assessment/Plan Acute resp failure/intubated wbc trending down continue current antibiotics care as per ICU cc time 40 min
[2017-01-31] MEDS: HEPARIN INFUSION - 500 ML IVPB SCH (18:59)
[2017-01-31] MEDS: DOBUTAMINE HCL 250,000 MCG in SODIUM CHLORIDE 230 ML IV SCH (18:59)
[2017-01-31] MEDS ORDERED: FUROSEMIDE 100 MG/10 ML INJECTABLE VIAL ONE (20:08)
[2017-01-31] MEDS: CHLORHEXIDINE GLUCONATE 4% CLEANSER FOR DECOLONIZATION TP SCH (21:33)
[2017-02-01] MEDS ORDERED: DOBUTAMINE 250 MG/D5W - 250 ML ONE ×2 (01:41→08:42)
[2017-02-01] MEDS: METOPROLOL TARTRATE 5 MG/5 ML VIAL IVPB SCH ×3 (02:30→17:00)
[2017-02-01] MEDS: PIPERACILLIN/TAZOB 2.25 GM 50 ML IVPB SCH ×4 (03:30→21:51)
[2017-02-01] MEDS: MEROPENEM 1 GM in DEXTROSE 5%-WATER - 100 ML IVPB SCH ×2 (05:30→17:01)
[2017-02-01] MEDS: ALBUTEROL SO4 2.5/IPRATROPIUM 0.5 INH SOL 3 ML VIAL.NEB. NEB SCH ×4 (06:20→23:33)
[2017-02-01] MEDS ORDERED: PT OWN MED DRAWER 7, Y5N ONE ×3 (06:32→16:06)
[2017-02-01 06:36] LABS: MCH 31.7 pg (25.7-33.7); MEAN CELL VOLUME 96.1 fl (80-96); MEAN PLT VOLUME 9.5 fl (7.5-11.1); PLATELET COUNT 239 K/MM3 (134-434); RDW 15.8 % (11.6-15.6); WHITE BLOOD COUNT 14.1 K/mm3 (4.0-10.0)
[2017-02-01 07:48] LABS: METAMYELOCYTE 1 % (0-2); PLATELET ESTIMATE ADEQUATE; TOTAL CELLS COUNTED 100
[2017-02-01] MEDS: SEVELAMER CARBONATE 0.8 GM POWDER PACKET NGT SCH ×3 (08:00→17:02)
[2017-02-01 08:18] LABS: ALBUMIN 1.2 g/dl (3.4-5.0); ALK PHOS 104 U/L (45-117); BILIRUBIN,TOTAL 0.7 mg/dL (0.2-1.0); CALCIUM 7.7 mg/dL (8.5-10.1); CO2 20 mmol/L (21-32); CREATININE 3.4 mg/dL (0.55-1.02); GLUCOSE,RANDOM 93 mg/dL (74-106); MAGNESIUM 2.3 mg/dL (1.8-2.4); PHOSPHOROUS 8.1 mg/dL (2.5-4.9); SGOT/AST 16 U/L (15-37); SGPT/ALT 9 U/L (12-78); TOT PROT 4.5 g/dl (6.4-8.2)
[2017-02-01 08:26] LABS: ANION GAP 16 (8-16)
[2017-02-01] MEDS: FUROSEMIDE INJECTION 100 MG in SODIUM CHLORIDE 40 ML IVPB SCH (08:30)
--- NOTE | 2017-02-01 08:31 | PN ---
Progress Note (short form) - Note Progress Note: Renal Follow up for JG Pt seen and examined in the ICU intubated, sedated, FiO2 45% on Dobutamine, Lasix gtt juarez in place with yellow urine Vital Signs Temperature 98.3 F 02/01/17 08:00 Pulse Rate 103 H 02/01/17 08:00 Respiratory Rate 18 02/01/17 08:00 Blood Pressure 118/59 02/01/17 08:00 O2 Sat by Pulse Oximetry (%) 99 01/31/17 21:00 Intake & Output 01/29/17 01/30/17 01/31/17 02/01/17 23:59 23:59 23:59 23:59 Intake Total 2572 2880 3226 893 Output Total 865 1890 1465 530 Balance 8236 370 4942 363 Weight 276 lb 3.827 oz 282 lb 6.594 oz 282 lb 10.122 oz 283 lb 11.759 oz Gen: intubated on vent CVS: RRR Lungs: Dec BS throughout the lung dimas Abd: soft NT/ND Ext: 2+ edema upper ext and lower ext CBC, BMP 02/01/17 06:10 02/01/17 06:10 Laboratory Tests 02/01/17 06:10 Calcium 7.7 L Phosphorus 8.1 H Magnesium 2.3 Albumin 1.2 L Current Medications Acetaminophen (Ofirmev Injection -) 1,000 mg IVPB Q6H PRN PRN Reason: FEVER Last Admin: 01/24/17 16:32 Dose: 1,000 mg Albuterol/Ipratropium (Duoneb -) 1 amp NEB QIDR [facility] Last Admin: 02/01/17 06:20 Dose: 1 amp Bacitracin (Bacitracin -) 1 applic TP BID [facility] Last Admin: 01/31/17 21:33 Dose: 1 applic Chlorhexidine Gluconate (Hibiclens For Decolonization -) 1 applic TP HS [facility] Last Admin: 01/31/17 21:33 Dose: 1 applic Heparin Sodium (Porcine) (Heparin -) 1,000 unit IVPUSH PRN PRN PRN Reason: Heparin Last Admin: 01/28/17 09:19 Dose: 1,000 unit Heparin Sodium (Porcine) (Heparin -) 5,000 unit IVPUSH PRN PRN PRN Reason: Heparin Last Admin: 01/17/17 07:41 Dose: 5,000 unit Famotidine/Sodium Chloride (Pepcid 20 Mg Premixed Ivpb -) 50 mls @ 100 mls/hr IVPB BID [facility] Last Admin: 01/31/17 21:32 Dose: 100 mls/hr Fluconazole (Diflucan 200 Mg/D5w Premixed Ivpb -) 100 mls @ 100 mls/hr IVPB DAILY [facility] Last Admin: 01/31/17 09:47 Dose: 100 mls/hr Heparin Sodium/Dextrose (Heparin Infusion -) 500 mls @ 20 mls/hr IVPB TITR DAVID ; 1,000 UNITS/HR PRN Reason: Protocol Last Admin: 01/31/17 18:59 Dose: 28 mls/hr Meropenem 1 gm/ Dextrose 100 mls @ 100 mls/hr IVPB BID@0500,1700 DAVID PRN Reason: Protocol Last Admin: 02/01/17 05:30 Dose: 100 mls/hr Propofol (Diprivan -) 100 mls @ 3.486 mls/hr IVPB TITR DAVID; 5 MCG/KG/MIN PRN Reason: Protocol Last Admin: 01/31/17 16:39 Dose: Not Given Piperacillin Sod/Tazobactam Sod (Zosyn 2.25gm Ivpb (Pre-Docked)) 50 mls @ 100 mls/hr IVPB Q6H-IV DAVID PRN Reason: Protocol Last Admin: 02/01/17 03:30 Dose: 100 mls/hr Furosemide 100 mg/ Sodium (Chloride) 50 mls @ 5 mls/hr IVPB TITR DAVID PRN Reason: 10 MG/HR Last Admin: 01/31/17 16:39 Dose: Not Given Dobutamine HCl 250,000 mcg/ (Sodium Chloride) 250 mls @ 37.59 mls/hr IV TITR DAVID; 5 MCG/KG/MIN PRN Reason: Protocol Last Admin: 01/31/17 18:59 Dose: 37.59 mls/hr Metolazone (Zaroxolyn -) 10 mg PO ONCE ONE Stop: 02/01/17 10:01 Metoprolol Tartrate (Lopressor Injection -) 5 mg IVPB Q8H-IV DAVID Last Admin: 02/01/17 02:30 Dose: 5 mg Sevelamer Carbonate (Renvela Powder Packet -) 0.8 gm NGT TIDCM [facility] Last Admin: 01/31/17 16:39 Dose: 0.8 gm A/P 81 year old woman with PMhx of CKD? (Atrophic Kidney seen on US which is a chronic finding), Diverticulosis, DVT/PE on Warfarin, Hypertension who presented with Abd pain and found to have perforated bowel with diverticulitis s /p bowel resection with colostomy with JG with Cr of 2. #Non-oliguric acute kidney failure with total body volume overload and respiratory failure pt remains volume overloaded and in positive balance will give metolazone 10mg PO this am Trend Urine output no acute indication for [employer] DRAW[employer] at this time trend BUN/Cr and electrolytes #Sepsis/Shock/Perforated Abd viscus Continue ICU care Jair Medley DO Problem List - Problems (1) Perforated bowel Code(s): K63.1 - PERFORATION OF INTESTINE (NONTRAUMATIC) (2) Sepsis Code(s): A41.9 - SEPSIS, UNSPECIFIED ORGANISM Qualifiers: Qualified Code(s): A41.9 - Sepsis, unspecified organism (3) Acute renal failure (ARF) Code(s): N17.9 - ACUTE KIDNEY FAILURE, UNSPECIFIED (4) CKD (chronic kidney disease) Code(s): N18.9 - CHRONIC KIDNEY DISEASE, UNSPECIFIED (5) Hypertension Code(s): I10 - ESSENTIAL (PRIMARY) HYPERTENSION (6) Diverticulosis Code(s): K57.90 - DVRTCLOS OF INTEST, PART UNSP, W/O PERF OR ABSCESS W/O BLEED
[2017-02-01] MEDS: DOBUTAMINE HCL 250,000 MCG in SODIUM CHLORIDE 230 ML IV SCH ×3 (08:46→17:31)
--- NOTE | 2017-02-01 08:54 | PN ---
Progress Note, Physician Chief Complaint: Intubated for respiratory failure History of Present Illness: 81 yrs old admitted with c/o abd pain, nausea and vomiting with sepsis secondary to perforated sigmoid diverticulitis underwent explanatory laprotomy , sigmoid colon resection and colostomy on 01/09/2017 ,underwent IR guide aspiration of abscess today intubated for respiratory failure. on 01/20/2017 - Current Medication List Current Medications: Active Medications Acetaminophen (Ofirmev Injection -) 1,000 mg IVPB Q6H PRN PRN Reason: FEVER Last Admin: 01/24/17 16:32 Dose: 1,000 mg Albuterol/Ipratropium (Duoneb -) 1 amp NEB QIDR [facility] Last Admin: 02/01/17 06:20 Dose: 1 amp Bacitracin (Bacitracin -) 1 applic TP BID [facility] Last Admin: 01/31/17 21:33 Dose: 1 applic Chlorhexidine Gluconate (Hibiclens For Decolonization -) 1 applic TP HS [facility] Last Admin: 01/31/17 21:33 Dose: 1 applic Heparin Sodium (Porcine) (Heparin -) 1,000 unit IVPUSH PRN PRN PRN Reason: Heparin Last Admin: 01/28/17 09:19 Dose: 1,000 unit Heparin Sodium (Porcine) (Heparin -) 5,000 unit IVPUSH PRN PRN PRN Reason: Heparin Last Admin: 01/17/17 07:41 Dose: 5,000 unit Famotidine/Sodium Chloride (Pepcid 20 Mg Premixed Ivpb -) 50 mls @ 100 mls/hr IVPB BID [facility] Last Admin: 01/31/17 21:32 Dose: 100 mls/hr Fluconazole (Diflucan 200 Mg/D5w Premixed Ivpb -) 100 mls @ 100 mls/hr IVPB DAILY [facility] Last Admin: 01/31/17 09:47 Dose: 100 mls/hr Heparin Sodium/Dextrose (Heparin Infusion -) 500 mls @ 20 mls/hr IVPB TITR DAVID ; 1,000 UNITS/HR PRN Reason: Protocol Last Admin: 01/31/17 18:59 Dose: 28 mls/hr Meropenem 1 gm/ Dextrose 100 mls @ 100 mls/hr IVPB BID@0500,1700 DAVID PRN Reason: Protocol Last Admin: 02/01/17 05:30 Dose: 100 mls/hr Propofol (Diprivan -) 100 mls @ 3.486 mls/hr IVPB TITR DAVID; 5 MCG/KG/MIN PRN Reason: Protocol Last Admin: 01/31/17 16:39 Dose: Not Given Piperacillin Sod/Tazobactam Sod (Zosyn 2.25gm Ivpb (Pre-Docked)) 50 mls @ 100 mls/hr IVPB Q6H-IV DAVID PRN Reason: Protocol Last Admin: 02/01/17 03:30 Dose: 100 mls/hr Furosemide 100 mg/ Sodium (Chloride) 50 mls @ 5 mls/hr IVPB TITR DAVID PRN Reason: 10 MG/HR Last Admin: 01/31/17 16:39 Dose: Not Given Dobutamine HCl 250,000 mcg/ (Sodium Chloride) 250 mls @ 37.59 mls/hr IV TITR DAVID; 5 MCG/KG/MIN PRN Reason: Protocol Last Admin: 02/01/17 08:46 Dose: 37.59 mls/hr Metolazone (Zaroxolyn -) 10 mg PO ONCE ONE Stop: 02/01/17 10:01 Metoprolol Tartrate (Lopressor Injection -) 5 mg IVPB Q8H-IV [facility] Last Admin: 02/01/17 02:30 Dose: 5 mg Sevelamer Carbonate (Renvela Powder Packet -) 0.8 gm NGT TIDCM [facility] Last Admin: 01/31/17 16:39 Dose: 0.8 gm - Objective Vital Signs: Vital Signs Temperature 98.3 F 02/01/17 08:00 Pulse Rate 99 H 02/01/17 08:46 Respiratory Rate 18 02/01/17 08:00 Blood Pressure 118/59 02/01/17 08:46 O2 Sat by Pulse Oximetry (%) 98 02/01/17 08:00 General: Elderly F s/p intubated , unresponsive, not responding to verbal command. 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 Labs: CBC, BMP 02/01/17 06:10 02/01/17 06:10 INR, PTT INR 1.12 (0.82-1.09) 01/31/17 06:05 Problem List - Problems (1) Diverticulitis of large intestine with perforation and abscess without bleeding Assessment/Plan: S/P Sepsis, Explanatory laprotomy on 07/12/2016 F/U surgery recommendations, NPO , cont abx. Code(s): K57.20 - DVTRCLI OF LG INT W PERFORATION AND ABSCESS W/O BLEEDING (2) Left ventricular systolic dysfunction Assessment/Plan: F/U cardiology recommendation. Code(s): I51.9 - HEART DISEASE, UNSPECIFIED (3) Respiratory failure Assessment/Plan: s/p intubation saturation well, on Vent need tracheostomy Code(s): J96.90 - RESPIRATORY FAILURE, UNSP, UNSP W HYPOXIA OR HYPERCAPNIA Qualifiers: Qualified Code(s): J96.01 - Acute respiratory failure with hypoxia (4) Abdominal abscess Assessment/Plan: s/p I and D at present in sepsis. cont current abx Code(s): K65.1 - PERITONEAL ABSCESS (5) Acute renal failure (ARF) Assessment/Plan: F/U renal recommondations Code(s): N17.9 - ACUTE KIDNEY FAILURE, UNSPECIFIED
[2017-02-01] MEDS ORDERED: FUROSEMIDE 100 MG/10 ML INJECTABLE VIAL ONE (09:10)
[2017-02-01] MEDS: FAMOTIDINE 20 MG/50 ML IVPB 50 ML IVPB SCH ×2 (09:29→21:51)
[2017-02-01] MEDS: HEPARIN INFUSION - 500 ML IVPB SCH ×2 (09:30→17:00)
[2017-02-01] MEDS: PROPOFOL 100 ML IVPB SCH (09:30)
[2017-02-01] MEDS: FLUCONAZOLE 200 MG/D5W 100 ML IVPB SCH (09:31)
[2017-02-01] MEDS: BACITRACIN 15 GM TUBE TOPICAL OINTMENT TP SCH ×2 (09:37→21:51)
[2017-02-01] MEDS ORDERED: METOLAZONE 5 MG TABLET PO ONE (10:00)
--- NOTE | 2017-02-01 10:03 | PN ---
Progress Note (short form) - Note Progress Note: PULMONARY/CCM Pt seen and examined in the ICU. Remains intubated, sedated. On dobutamine and lasix gtts. Tachypneic on sedation. No fevers recorded. Vented on volume assist control with 45% FiO2 PEEP 7. Last Vital Signs Temp Pulse Resp BP Pulse Ox 98.3 F 107 H 18 118/59 98 02/01/17 08:00 02/01/17 09:33 02/01/17 08:00 02/01/17 09:33 02/01/17 08:00 Intake & Output 01/29/17 01/30/17 01/31/17 02/01/17 23:59 23:59 23:59 23:59 Intake Total 2572 2880 3226 893 Output Total 865 1890 1465 530 Balance 5912 500 7258 363 Weight 276 lb 3.827 oz 282 lb 6.594 oz 282 lb 10.122 oz 283 lb 11.759 oz Gen: intubated, sedated Heart: tachycardic, regular Lung: decreased breath sounds at the bases Abd: soft, +drains with purulent output Ext: + edema CBC, BMP 02/01/17 06:10 02/01/17 06:10 Active Medications Acetaminophen (Ofirmev Injection -) 1,000 mg IVPB Q6H PRN PRN Reason: FEVER Last Admin: 01/24/17 16:32 Dose: 1,000 mg Albuterol/Ipratropium (Duoneb -) 1 amp NEB QIDR [facility] Last Admin: 02/01/17 06:20 Dose: 1 amp Bacitracin (Bacitracin -) 1 applic TP BID [facility] Last Admin: 02/01/17 09:37 Dose: 1 applic Chlorhexidine Gluconate (Hibiclens For Decolonization -) 1 applic TP HS [facility] Last Admin: 01/31/17 21:33 Dose: 1 applic Heparin Sodium (Porcine) (Heparin -) 1,000 unit IVPUSH PRN PRN PRN Reason: Heparin Last Admin: 01/28/17 09:19 Dose: 1,000 unit Heparin Sodium (Porcine) (Heparin -) 5,000 unit IVPUSH PRN PRN PRN Reason: Heparin Last Admin: 01/17/17 07:41 Dose: 5,000 unit Famotidine/Sodium Chloride (Pepcid 20 Mg Premixed Ivpb -) 50 mls @ 100 mls/hr IVPB BID [facility] Last Admin: 02/01/17 09:29 Dose: 100 mls/hr Fluconazole (Diflucan 200 Mg/D5w Premixed Ivpb -) 100 mls @ 100 mls/hr IVPB DAILY [facility] Last Admin: 02/01/17 09:31 Dose: 100 mls/hr Heparin Sodium/Dextrose (Heparin Infusion -) 500 mls @ 20 mls/hr IVPB TITR DAVID ; 1,000 UNITS/HR PRN Reason: Protocol Last Admin: 02/01/17 09:30 Dose: 28 mls/hr Meropenem 1 gm/ Dextrose 100 mls @ 100 mls/hr IVPB BID@0500,1700 DAVID PRN Reason: Protocol Last Admin: 02/01/17 05:30 Dose: 100 mls/hr Propofol (Diprivan -) 100 mls @ 3.486 mls/hr IVPB TITR DAVID; 5 MCG/KG/MIN PRN Reason: Protocol Last Admin: 02/01/17 09:30 Dose: 7 mls/hr Piperacillin Sod/Tazobactam Sod (Zosyn 2.25gm Ivpb (Pre-Docked)) 50 mls @ 100 mls/hr IVPB Q6H-IV DAVID PRN Reason: Protocol Last Admin: 02/01/17 09:30 Dose: 100 mls/hr Furosemide 100 mg/ Sodium (Chloride) 50 mls @ 5 mls/hr IVPB TITR DAVID PRN Reason: 10 MG/HR Last Admin: 02/01/17 08:30 Dose: 5 mls/hr Dobutamine HCl 250,000 mcg/ (Sodium Chloride) 250 mls @ 37.59 mls/hr IV TITR DAVID; 5 MCG/KG/MIN PRN Reason: Protocol Last Admin: 02/01/17 08:46 Dose: 37.59 mls/hr Metoprolol Tartrate (Lopressor Injection -) 5 mg IVPB Q8H-IV [facility]ID Last Admin: 02/01/17 09:33 Dose: 5 mg Sevelamer Carbonate (Renvela Powder Packet -) 0.8 gm NGT TIDCM [facility] Last Admin: 02/01/17 08:00 Dose: 0.8 gm A/P Acute Hypoxic Respiratory Failure Perforated Diverticulitis s/p Sigmoid Resection/Colostomy 01/09 Intra-abdominal Abscess Acute on Chronic Systolic Heart Failure Acute Kidney Injury h/o DVT/PE Atrial Fibrillation - continue antibiotics - monitor drain output - surgery f/u - continue dobutamine gtt - lasix gtt - taper FiO2, PEEP to keep SpO2 >90% - continue anticoagulation - poor prognosis - continue discussions regarding goals of care and advanced directives - continue ICU monitoring critical care time spent in reviewing chart, evaluating patient and formulating plan 36 min
--- NOTE | 2017-02-01 14:03 | PN ---
Progress Note (short form) - Note Progress Note: Patient remains intubated,progressive real insufficiency,on Lasix and Dobutamine drip also remains on Lopressor drip.according to the nurse pt. has been made a DNR. Active Medications Generic Name Dose Route Start Last Admin Trade Name Freq PRN Reason Stop Dose Admin Acetaminophen 1,000 mg 01/11/17 18:03 01/24/17 16:32 Ofirmev Injection - IVPB 1,000 mg Q6H PRN Administration FEVER Albuterol/Ipratropium 1 amp 01/11/17 00:00 02/01/17 11:30 Duoneb - NEB 1 amp QIDR DAVID Administration Bacitracin 1 applic 01/30/17 12:00 02/01/17 09:37 Bacitracin - TP 1 applic BID DAVID Administration Chlorhexidine Gluconate 1 applic 01/20/17 22:00 01/31/17 21:33 Hibiclens For Decolonization - TP 1 applic HS DAVID Administration Heparin Sodium (Porcine) 1,000 unit 01/12/17 16:52 01/28/17 09:19 Heparin - IVPUSH 1,000 unit PRN PRN Administration Heparin Heparin Sodium (Porcine) 5,000 unit 01/12/17 16:52 01/17/17 07:41 Heparin - IVPUSH 5,000 unit PRN PRN Administration Heparin Famotidine/Sodium Chloride 50 mls @ 100 mls/hr 01/10/17 10:00 02/01/17 09:29 Pepcid 20 Mg Premixed Ivpb - IVPB 100 mls/hr BID DAVID Administration Fluconazole 100 mls @ 100 mls/hr 01/11/17 13:00 02/01/17 09:31 Diflucan 200 Mg/D5w Premixed Ivpb - IVPB 100 mls/hr DAILY DAVID Administration Heparin Sodium/Dextrose 500 mls @ 20 mls/hr 01/12/17 17:00 02/01/17 09:30 Heparin Infusion - IVPB 28 mls/hr TITR DAVID Administration Protocol 1,000 UNITS/HR Meropenem 1 gm/ Dextrose 100 mls @ 100 mls/hr 01/15/17 17:00 02/01/17 05:30 IVPB 100 mls/hr BID@0500,1700 DAVID Administration Protocol Propofol 100 mls @ 3.486 mls/hr 01/24/17 10:00 02/01/17 09:30 Diprivan - IVPB 7 mls/hr TITR DAVID Administration Protocol 5 MCG/KG/MIN Piperacillin Sod/Tazobactam Sod 50 mls @ 100 mls/hr 01/26/17 15:00 02/01/17 09: 30 Zosyn 2.25gm Ivpb (Pre-Docked) IVPB 100 mls/hr Q6H-IV DAVID Administration Protocol Furosemide 100 mg/ Sodium 50 mls @ 5 mls/hr 01/29/17 08:38 02/01/17 08:30 Chloride IVPB 5 mls/hr TITR DAVID Administration 10 MG/HR Dobutamine HCl 250,000 mcg/ 250 mls @ 37.59 mls/hr 01/29/17 12:45 02/01/17 12: 45 Sodium Chloride IV Not Given TITR DAVID Protocol 5 MCG/KG/MIN Metoprolol Tartrate 5 mg 01/11/17 15:20 02/01/17 09:33 Lopressor Injection - IVPB 5 mg Q8H-IV DAVID Administration Sevelamer Carbonate 0.8 gm 01/26/17 17:30 02/01/17 12:00 Renvela Powder Packet - NGT 0.8 gm TIDCM DAVID Administration 81 year old female intubated and sedated. Vital Signs - 8 hr 02/01/17 02/01/17 02/01/17 06:00 07:22 08:00 Temperature 98.3 F Pulse Rate 99 H 103 H Respiratory 23 25 H 18 Rate Blood Pressure 101/47 118/59 O2 Sat by Pulse 98 Oximetry (%) 02/01/17 02/01/17 02/01/17 08:46 09:33 10:00 Temperature 97.8 F Pulse Rate 99 H 107 H 100 H Respiratory 22 Rate Blood Pressure 118/59 118/59 125/69 O2 Sat by Pulse Oximetry (%) 02/01/17 12:00 Temperature 97.7 F Pulse Rate 90 Respiratory 22 Rate Blood Pressure 105/83 O2 Sat by Pulse Oximetry (%) Intake & Output 01/31/17 02/01/17 02/01/17 23:59 07:59 15:59 Intake Total 1816 893 Output Total 500 530 400 Balance 1316 363 -400 Weight 283 lb 11.759 oz NECK: No JVD,carotids 2+ HEART: Distant sounds,no murmur or gallops heard. LUNGS: Decreased BS at the bases. EXT: 2+ pittind edema. CBC, BMP 02/01/17 06:10 02/01/17 06:10 1. Severe LV dysfunction. 2. Sepsis. 3. Ruptured diverticulits. 4. Renal insufficiency 4. Colostomy. 5. Anemia. CBC, BMP 01/25/17 05:35 01/25/17 05:35 6. Abdominal fluid collection secondary to abscess. 7. CLBBB. 8. Ventricular premature beats. 9. Respiratory failure. 0 Recommendation: 1. Supportive care. 2. Therapy as outlined by Powerhouse Engineer. Prognosis: critical.
--- NOTE | 2017-02-01 15:47 | PN ---
Progress Note (short form) - Note Progress Note: Attending Surgeon POD#23 No acute changes; patient is now DNR Continue same from surgical perspective; will f/u. Taqueria Prado MD FACS
--- NOTE | 2017-02-01 18:22 | PN ---
Progress Note, Physician History of Present Illness: Pt remains intubated/sedated , on vasopressor - Current Medication List Current Medications: Active Medications Acetaminophen (Ofirmev Injection -) 1,000 mg IVPB Q6H PRN PRN Reason: FEVER Last Admin: 01/24/17 16:32 Dose: 1,000 mg Albuterol/Ipratropium (Duoneb -) 1 amp NEB QIDR [facility] Last Admin: 02/01/17 17:14 Dose: 1 amp Bacitracin (Bacitracin -) 1 applic TP BID [facility] Last Admin: 02/01/17 09:37 Dose: 1 applic Chlorhexidine Gluconate (Hibiclens For Decolonization -) 1 applic TP HS [facility] Last Admin: 01/31/17 21:33 Dose: 1 applic Heparin Sodium (Porcine) (Heparin -) 1,000 unit IVPUSH PRN PRN PRN Reason: Heparin Last Admin: 01/28/17 09:19 Dose: 1,000 unit Heparin Sodium (Porcine) (Heparin -) 5,000 unit IVPUSH PRN PRN PRN Reason: Heparin Last Admin: 01/17/17 07:41 Dose: 5,000 unit Famotidine/Sodium Chloride (Pepcid 20 Mg Premixed Ivpb -) 50 mls @ 100 mls/hr IVPB BID [facility] Last Admin: 02/01/17 09:29 Dose: 100 mls/hr Fluconazole (Diflucan 200 Mg/D5w Premixed Ivpb -) 100 mls @ 100 mls/hr IVPB DAILY [facility] Last Admin: 02/01/17 09:31 Dose: 100 mls/hr Heparin Sodium/Dextrose (Heparin Infusion -) 500 mls @ 20 mls/hr IVPB TITR DAVID ; 1,000 UNITS/HR PRN Reason: Protocol Last Admin: 02/01/17 17:00 Dose: Not Given Meropenem 1 gm/ Dextrose 100 mls @ 100 mls/hr IVPB BID@0500,1700 DAVID PRN Reason: Protocol Last Admin: 02/01/17 17:01 Dose: 100 mls/hr Propofol (Diprivan -) 100 mls @ 3.486 mls/hr IVPB TITR DAVID; 5 MCG/KG/MIN PRN Reason: Protocol Last Admin: 02/01/17 09:30 Dose: 7 mls/hr Piperacillin Sod/Tazobactam Sod (Zosyn 2.25gm Ivpb (Pre-Docked)) 50 mls @ 100 mls/hr IVPB Q6H-IV DAVID PRN Reason: Protocol Last Admin: 02/01/17 15:29 Dose: 100 mls/hr Furosemide 100 mg/ Sodium (Chloride) 50 mls @ 5 mls/hr IVPB TITR DAVID PRN Reason: 10 MG/HR Last Admin: 02/01/17 08:30 Dose: 5 mls/hr Dobutamine HCl 250,000 mcg/ (Sodium Chloride) 250 mls @ 37.59 mls/hr IV TITR DAVID; 5 MCG/KG/MIN PRN Reason: Protocol Last Admin: 02/01/17 17:31 Dose: 37.59 mls/hr Metoprolol Tartrate (Lopressor Injection -) 5 mg IVPB Q8H-IV DAVID Last Admin: 02/01/17 17:00 Dose: 5 mg Sevelamer Carbonate (Renvela Powder Packet -) 0.8 gm NGT TIDCM DAVID Last Admin: 02/01/17 17:02 Dose: 0.8 gm - Objective Vital Signs: Vital Signs Temperature 97.8 F 02/01/17 18:00 Pulse Rate 95 H 02/01/17 18:00 Respiratory Rate 20 02/01/17 18:00 Blood Pressure 121/64 02/01/17 18:00 O2 Sat by Pulse Oximetry (%) 98 02/01/17 08:00 Constitutional: Yes: No Distress, Obese Cardiovascular: Yes: Tachycardia Respiratory: Yes: Mechanically Ventilated Gastrointestinal: Yes: Soft, Other (colostomy, midline wound with dressing, drain) Edema: Yes Edema: LLE: 2+, RLE: 2+ Wound/Incision: Yes: Dressing Dry and Intact Neurological: Yes: Other (sedated) Labs: CBC, BMP 02/01/17 06:10 02/01/17 06:10 INR, PTT INR 1.12 (0.82-1.09) 01/31/17 06:05 Problem List - Problems (1) H/O partial resection of colon Code(s): Z90.49 - ACQUIRED ABSENCE OF OTHER SPECIFIED PARTS OF DIGESTIVE TRACT (2) Intra-abdominal abscess post-procedure Code(s): T81.4XXA - INFECTION FOLLOWING A PROCEDURE, INITIAL ENCOUNTER K65.1 - PERITONEAL ABSCESS Qualifiers: Qualified Code(s): T81.4XXA - Infection following a procedure, initial encounter; K65.1 - Peritoneal abscess (3) Perforated bowel Code(s): K63.1 - PERFORATION OF INTESTINE (NONTRAUMATIC) (4) Severe sepsis Code(s): A41.9 - SEPSIS, UNSPECIFIED ORGANISM R65.20 - SEVERE SEPSIS WITHOUT SEPTIC SHOCK Assessment/Plan Intestinal perforation/Abscess s/p colostomy, drainage Sepsis /shock Leukocytosis JG Respiratory failure, Intubated -- cont. antibiotics for now -- continue supportive care per ICU pt now DNR cc time 40 min
[2017-02-01] MEDS: CHLORHEXIDINE GLUCONATE 4% CLEANSER FOR DECOLONIZATION TP SCH (21:51)
[2017-02-02] MEDS: PIPERACILLIN/TAZOB 2.25 GM 50 ML IVPB SCH ×3 (02:11→15:37)
[2017-02-02] MEDS: METOPROLOL TARTRATE 5 MG/5 ML VIAL IVPB SCH ×3 (02:12→17:05)
[2017-02-02] MEDS ORDERED: FUROSEMIDE 100 MG/10 ML INJECTABLE VIAL ONE ×4 (03:32→20:57)
[2017-02-02] MEDS ORDERED: PT OWN MED DRAWER 7, Y5N ONE ×3 (05:48→22:12)
[2017-02-02] MEDS: MEROPENEM 1 GM in DEXTROSE 5%-WATER - 100 ML IVPB SCH ×2 (05:51→17:03)
[2017-02-02] MEDS: ALBUTEROL SO4 2.5/IPRATROPIUM 0.5 INH SOL 3 ML VIAL.NEB. NEB SCH ×3 (06:34→16:50)
[2017-02-02 06:40] LABS: MCH 31.9 pg (25.7-33.7); MCHC 33.2 g/dl (32.0-36.0); MEAN CELL VOLUME 96.2 fl (80-96); MEAN PLT VOLUME 9.4 fl (7.5-11.1); PLATELET COUNT 258 K/MM3 (134-434); RDW 16.4 % (11.6-15.6); WHITE BLOOD COUNT 14.1 K/mm3 (4.0-10.0)
[2017-02-02 07:24] LABS: ALBUMIN 1.3 g/dl (3.4-5.0); ANION GAP 15 (8-16); BILIRUBIN,TOTAL 0.5 mg/dL (0.2-1.0); CALCIUM 7.2 mg/dL (8.5-10.1); CO2 20 mmol/L (21-32); CREATININE 3.4 mg/dL (0.55-1.02); GLUCOSE,RANDOM 81 mg/dL (74-106); MAGNESIUM 2.2 mg/dL (1.8-2.4); PHOSPHOROUS 8.5 mg/dL (2.5-4.9); SGOT/AST 15 U/L (15-37); SGPT/ALT 8 U/L (12-78); TOT PROT 4.7 g/dl (6.4-8.2)
[2017-02-02 07:26] LABS: ALK PHOS 116 U/L (45-117)
[2017-02-02] MEDS: SEVELAMER CARBONATE 0.8 GM POWDER PACKET NGT SCH ×3 (08:06→17:04)
[2017-02-02 08:21] LABS: TOTAL CELLS COUNTED 100
[2017-02-02 08:22] LABS: PLATELET ESTIMATE ADEQUATE
[2017-02-02] MEDS: DOBUTAMINE HCL 250,000 MCG in SODIUM CHLORIDE 230 ML IV SCH ×3 (08:24→15:38)
[2017-02-02] MEDS: FUROSEMIDE INJECTION 100 MG in SODIUM CHLORIDE 40 ML IVPB SCH ×3 (08:30→18:05)
[2017-02-02] MEDS: FLUCONAZOLE 200 MG/D5W 100 ML IVPB SCH (09:24)
[2017-02-02] MEDS: FAMOTIDINE 20 MG/50 ML IVPB 50 ML IVPB SCH ×2 (09:24→21:32)
[2017-02-02] MEDS: BACITRACIN 15 GM TUBE TOPICAL OINTMENT TP SCH ×2 (09:26→21:32)
[2017-02-02] MEDS: PROPOFOL 100 ML IVPB SCH (10:00)
[2017-02-02 10:37] LABS: ARTERIAL BLD GAS O2 SATURATION 97.6 % (90-98.9); ARTERIAL BLOOD GAS BASE EXCESS -5.9 meq/l (-2-2); ARTERIAL BLOOD GAS HCO3 18.7 meq/L (22-26); ARTERIAL BLOOD GAS PO2 94.2 mmHg (68-100)
[2017-02-02 10:39] LABS: ALLENS TEST POSITIVE; ART PUNCT SITE LEFT RADIAL; LPM/O2% 45%; MECH. VENT. YES; PT. ON O2? YES; TYPE OF O2 VENT; VENT RATE 22; VT/PRESS 450
[2017-02-02 10:41] LABS: ARTERIAL BLOOD GAS pH 7.34 (7.35-7.45)
--- NOTE | 2017-02-02 11:47 | PN ---
Teaching Attending Note Name of Resident: Erika Higuera ATTENDING PHYSICIAN STATEMENT I saw and evaluated the patient. I reviewed the resident's note and discussed the case with the resident. I agree with the resident's findings and plan as documented. SUBJECTIVE: Pt seen and examined in the ICU. Remains intubated, sedated. On dobutamine and lasix gtts but net positive yesterday. Vented on volume assist control with 45% Fio2 and PEEP 7. OBJECTIVE: Last Vital Signs Temp Pulse Resp BP Pulse Ox 98.5 F 100 H 20 94/45 96 02/02/17 10:00 02/02/17 10:00 02/02/17 10:00 02/02/17 10:00 02/02/17 09:40 Intake & Output 01/30/17 01/31/17 02/01/17 02/02/17 23:59 23:59 23:59 23:59 Intake Total 2880 3226 2884.2 1201.2 Output Total 1890 1831 111 6510 Balance 990 1761 1892.2 -138.8 Weight 282 lb 6.594 oz 282 lb 10.122 oz 283 lb 11.759 oz 288 lb 12.889 oz Gen: intubated, sedated Heart: tachycardic, irregular Lung: bilateral rhonchi Abd: soft, open wound, +JAMES drains with pus Ext: + edema CBC, BMP 02/02/17 06:10 02/02/17 06:10 Active Medications Acetaminophen (Ofirmev Injection -) 1,000 mg IVPB Q6H PRN PRN Reason: FEVER Last Admin: 01/24/17 16:32 Dose: 1,000 mg Albuterol/Ipratropium (Duoneb -) 1 amp NEB QIDR [facility] Last Admin: 02/02/17 11:00 Dose: 1 amp Bacitracin (Bacitracin -) 1 applic TP BID [facility] Last Admin: 02/02/17 09:26 Dose: 1 applic Chlorhexidine Gluconate (Hibiclens For Decolonization -) 1 applic TP HS [facility] Last Admin: 02/01/17 21:51 Dose: 1 applic Heparin Sodium (Porcine) (Heparin -) 1,000 unit IVPUSH PRN PRN PRN Reason: Heparin Last Admin: 01/28/17 09:19 Dose: 1,000 unit Heparin Sodium (Porcine) (Heparin -) 5,000 unit IVPUSH PRN PRN PRN Reason: Heparin Last Admin: 01/17/17 07:41 Dose: 5,000 unit Famotidine/Sodium Chloride (Pepcid 20 Mg Premixed Ivpb -) 50 mls @ 100 mls/hr IVPB BID DAVID Last Admin: 02/02/17 09:24 Dose: 100 mls/hr Fluconazole (Diflucan 200 Mg/D5w Premixed Ivpb -) 100 mls @ 100 mls/hr IVPB DAILY DAVID Last Admin: 02/02/17 09:24 Dose: 100 mls/hr Heparin Sodium/Dextrose (Heparin Infusion -) 500 mls @ 20 mls/hr IVPB TITR DAVID ; 1,000 UNITS/HR PRN Reason: Protocol Last Titration: 02/02/17 09:25 Dose: 1,400 units/hr Meropenem 1 gm/ Dextrose 100 mls @ 100 mls/hr IVPB BID@0500,1700 DAVID PRN Reason: Protocol Last Admin: 02/02/17 05:51 Dose: 100 mls/hr Propofol (Diprivan -) 100 mls @ 3.486 mls/hr IVPB TITR DAVID; 5 MCG/KG/MIN PRN Reason: Protocol Last Admin: 02/01/17 09:30 Dose: 7 mls/hr Piperacillin Sod/Tazobactam Sod (Zosyn 2.25gm Ivpb (Pre-Docked)) 50 mls @ 100 mls/hr IVPB Q6H-IV DAVID PRN Reason: Protocol Last Admin: 02/02/17 09:33 Dose: 100 mls/hr Furosemide 100 mg/ Sodium (Chloride) 50 mls @ 5 mls/hr IVPB TITR DAVID PRN Reason: 10 MG/HR Last Admin: 02/02/17 08:30 Dose: Not Given Dobutamine HCl 250,000 mcg/ (Sodium Chloride) 250 mls @ 37.59 mls/hr IV TITR DAVID; 5 MCG/KG/MIN PRN Reason: Protocol Last Admin: 02/02/17 08:24 Dose: 37.59 mls/hr Metoprolol Tartrate (Lopressor Injection -) 5 mg IVPB Q8H-IV DAVID Last Admin: 02/02/17 09:25 Dose: 5 mg Sevelamer Carbonate (Renvela Powder Packet -) [facility] Last Admin: 02/02/17 08:06 Dose: 0.8 gm ASSESSMENT AND PLAN: Acute Hypoxic Respiratory Failure Perforated Diverticulitis s/p Sigmoid Resection/Colostomy 01/09 Intra-abdominal Abscess Acute on Chronic Systolic Heart Failure Acute Kidney Injury Volume Overload h/o DVT/PE Atrial Fibrillation - continue antibiotics - monitor drain output - surgery f/u - continue dobutamine gtt - lasix gtt - taper FiO2, PEEP to keep SpO2 >90% - continue anticoagulation - poor prognosis - continue discussions regarding goals of care and advanced directives - will need tracheostomy if family wishes to continue aggressive care - continue ICU monitoring critical care time spent in reviewing chart, evaluating patient and formulating plan 36 min
--- NOTE | 2017-02-02 11:50 | PN ---
Physical Exam: SUBJECTIVE: Patient seen and examined at bed side this morning. Sedated and Intubated-Propofol @ 9; Settings @ 22/450/45/7 No acute overnight events. Tried sedation vacation this morning, off propofol this morning- pt opened her eyes but didn't follow commands. OBJECTIVE: Vital Signs Period Temp Pulse Resp BP Sys/Riley Pulse Ox Last 24 Hr 97.5 F-98.6 F 82-105 18-22 94-126/45-83 95-96 GENERAL: The patient is intubated. HEAD: Normal with no signs of trauma. EYES: PERRL, No pallor or icterus. ENT: Ears normal, moist mucous membranes. NECK: Supple. LUNGS: B/L decreased breath sounds equal, bibasilar crackles, accessory muscle use +. HEART: Regular rate and rhythm, S1, S2 without murmur, rub or gallop. ABDOMEN: Surgical site seen, greenish colored layer of skin at the surgical site , minimal serosanguinous fluids +, ostomy looks pink with good function. 2 JAMES drain - thick brownish fluid ,Soft, mildly tender, nondistended, normoactive bowel sounds, no guarding, no rebound, no hepatosplenomegaly, no masses. EXTREMITIES: 2+ pulses, warm, well-perfused, B/L peripheral pitting edema in the LE and Upper extremity. NEUROLOGICAL: No facial droop, gait not observed. PSYCH: Normal mood, normal affect. SKIN: Warm, dry, normal turgor, no rashes or lesions note Laboratory Results - last 24 hr 01/29/17 02/01/17 02/02/17 09:00 12:00 06:10 WBC 14.1 H RBC 2.74 L Hgb 8.8 L Hct 26.4 L MCV 96.2 H MCH 31.9 MCHC 33.2 RDW 16.4 H Plt Count 258 MPV 9.4 Neutrophils % Y Neutrophils % (Manual) 87 H Lymphocytes % Y Lymphocytes % (Manual) 5 L Monocytes % (Manual) 6 D Eosinophils % (Manual) 2 Platelet Estimate Adequate PTT (Actin FS) 62.4 H Puncture Site ABG pH ABG pCO2 at Pt Temp ABG pO2 at Pt Temp ABG HCO3 ABG O2 Sat (Measured) ABG O2 Content ABG Base Excess Jose A Test O2 Delivery Device Oxygen Flow Rate Vent Mode Vent Rate Mechanical Rate PEEP Pressure Support Vent Sodium Potassium Chloride Carbon Dioxide Anion Gap BUN Creatinine Creat Clearance w eGFR Random Glucose Calcium Phosphorus Magnesium Total Bilirubin AST ALT Alkaline Phosphatase Total Protein Albumin Blood Type O POSITIVE Antibody Screen Positive H Antibody Identification TNP Crossmatch See Detail 02/02/17 02/02/17 02/02/17 06:10 06:10 10:00 WBC RBC Hgb Hct MCV MCH MCHC RDW Plt Count MPV Neutrophils % Neutrophils % (Manual) Lymphocytes % Lymphocytes % (Manual) Monocytes % (Manual) Eosinophils % (Manual) Platelet Estimate PTT (Actin FS) 67.3 H Puncture Site Left radial ABG pH 7.34 L ABG pCO2 at Pt Temp 35.6 ABG pO2 at Pt Temp 94.2 ABG HCO3 18.7 L ABG O2 Sat (Measured) 97.6 ABG O2 Content 12.1 L ABG Base Excess -5.9 L Jose A Test Positive O2 Delivery Device Vent Oxygen Flow Rate 45% Vent Mode A/c Vent Rate 22 Mechanical Rate Yes PEEP 7.0 Pressure Support Vent 450 Sodium 128 L Potassium 3.7 Chloride 93 L Carbon Dioxide 20 L Anion Gap 15 BUN 83 H Creatinine 3.4 H Creat Clearance w eGFR 12.93 Random Glucose 81 Calcium 7.2 L Phosphorus 8.5 H Magnesium 2.2 Total Bilirubin 0.5 D AST 15 ALT 8 L Alkaline Phosphatase 116 Total Protein 4.7 L Albumin 1.3 L Blood Type Antibody Screen Antibody Identification Crossmatch Active Medications Generic Name Dose Route Start Last Admin Trade Name Freq PRN Reason Stop Dose Admin Acetaminophen 1,000 mg 01/11/17 18:03 01/24/17 16:32 Ofirmev Injection - IVPB 1,000 mg Q6H PRN Administration FEVER Albuterol/Ipratropium 1 amp 01/11/17 00:00 02/02/17 11:00 Duoneb - NEB 1 amp QIDR DAVID Administration Bacitracin 1 applic 01/30/17 12:00 02/02/17 09:26 Bacitracin - TP 1 applic BID DAVID Administration Chlorhexidine Gluconate 1 applic 01/20/17 22:00 02/01/17 21:51 Hibiclens For Decolonization - TP 1 applic HS DAVID Administration Heparin Sodium (Porcine) 1,000 unit 01/12/17 16:52 01/28/17 09:19 Heparin - IVPUSH 1,000 unit PRN PRN Administration Heparin Heparin Sodium (Porcine) 5,000 unit 01/12/17 16:52 01/17/17 07:41 Heparin - IVPUSH 5,000 unit PRN PRN Administration Heparin Famotidine/Sodium Chloride 50 mls @ 100 mls/hr 01/10/17 10:00 02/02/17 09:24 Pepcid 20 Mg Premixed Ivpb - IVPB 100 mls/hr BID DAVID Administration Fluconazole 100 mls @ 100 mls/hr 01/11/17 13:00 02/02/17 09:24 Diflucan 200 Mg/D5w Premixed Ivpb - IVPB 100 mls/hr DAILY DAVID Administration Heparin Sodium/Dextrose 500 mls @ 20 mls/hr 01/12/17 17:00 02/02/17 09:25 Heparin Infusion - IVPB 1,400 units/hr TITR DAVID Titration Protocol 1,000 UNITS/HR Meropenem 1 gm/ Dextrose 100 mls @ 100 mls/hr 01/15/17 17:00 02/02/17 05:51 IVPB 100 mls/hr BID@0500,1700 DAVID Administration Protocol Propofol 100 mls @ 3.486 mls/hr 01/24/17 10:00 02/01/17 09:30 Diprivan - IVPB 7 mls/hr TITR DAVID Administration Protocol 5 MCG/KG/MIN Piperacillin Sod/Tazobactam Sod 50 mls @ 100 mls/hr 01/26/17 15:00 02/02/17 09: 33 Zosyn 2.25gm Ivpb (Pre-Docked) IVPB 100 mls/hr Q6H-IV DAVID Administration Protocol Furosemide 100 mg/ Sodium 50 mls @ 5 mls/hr 01/29/17 08:38 02/02/17 08:30 Chloride IVPB Not Given TITR DAVID 10 MG/HR Dobutamine HCl 250,000 mcg/ 250 mls @ 37.59 mls/hr 01/29/17 12:45 02/02/17 08: 24 Sodium Chloride IV 37.59 mls/hr TITR DAVID Administration Protocol 5 MCG/KG/MIN Metoprolol Tartrate 5 mg 01/11/17 15:20 02/02/17 09:25 Lopressor Injection - IVPB 5 mg Q8H-IV DAVID Administration Sevelamer Carbonate 0.8 gm 01/26/17 17:30 02/02/17 08:06 Renvela Powder Packet - NGT 0.8 gm TIDCM DAVID Administration ASSESSMENT/PLAN: Patient is 81 year old female with a history of diverticulosis presents to the ED with perforated diverticulitis now post op day 5 s/p sigmoid resection with colostomy. # Acute hypoxic respiratory failure Intubated to protect the airways. Off sedation this morning. Will try sedation vacation Has been intubated since 01/20/17, tried sedation vacation but patient is not doing well, not a candidate for extubation Plan: Tracheostomy. Consulted Dr. Solomon, awaiting his call back. # Anasarca with acute kidney failure- likely Acute Tubular Necrosis Failed to respond to diuretics, is still on IV Lasix drip, increased to 15mg/ hr today Trial of dialysis if family agrees Creatinine has been rising, today is 3.4 Avoid any nephrotoxic drugs # Hypotensive now on Dobutamine Central line changed on 12/29/2016 Dobutamine @ 5mcgs/hr # Sepsis likely secondary to perforated diverticulitis s/p sigmoid resection with colostomy day Day 24 with an abdominal abscess s/p IR guided drainage Leukocytosis has been same as compared to yesterday 14.1 IR guided drainange 2 JAMES drain Left drained 80mls and Right 12mls yesterday, abscess grew Lactose fermenting gm negative bacilli, Strep sp Continue IV Meropenam Day 19 Continue IV Fluconazole Day 23 Continue IV Zosyn Day 8 Blood culture/Urine culture negative. # NSTEMI after surgery On Heparin Drip Troponin trending down # Atrial fibrillation-rate controlled On Heparin Drip Rate control with metoprolol 5mg IV q8h # FEN: Not on IV fluids Electrolytes to be repeated tomorrow Started enteral feeds Nepro @ 35 cc/hr. # Prophylaxis For DVT: On Heparin drip For GI: IV Famotidine 20mg BID # Code Status: DNR # Dispo: Admitted in ICU. Continue ICU care Prognosis is poor. Illness, Investigation and Plan of care explained to the family members yesterday. They verbalized understanding. Case seen and discussed with Dr. Garcia. Visit type - Emergency Visit Emergency Visit: Yes ED Registration Date: 01/09/17 Care time: The patient presented to the Emergency Department on the above date and was hospitalized for further evaluation of their emergent condition. - New Patient This patient is new to me today: No - Critical Care Critical Care patient: Yes Total Critical Care Time (in minutes): 35 Critical Care Statement: The care of this patient involved high complexity decision making to prevent further life threatening deterioration of the patient 's condition and/or to evaluate & treat vital organ system(s) failure or risk of failure.
--- NOTE | 2017-02-02 12:03 | PN ---
Progress Note (short form) - Note Progress Note: Renal Follow up for JG Pt seen and examined in the ICU intubated, sedated on Dobutamine, Lasix gtt pt is non-oliguric but remains net positive Vital Signs Temperature 98.5 F 02/02/17 10:00 Pulse Rate 100 H 02/02/17 10:00 Respiratory Rate 20 02/02/17 10:00 Blood Pressure 94/45 02/02/17 10:00 O2 Sat by Pulse Oximetry (%) 96 02/02/17 09:40 Intake & Output 01/30/17 01/31/17 02/01/17 02/02/17 23:59 23:59 23:59 23:59 Intake Total 2880 3226 2884.2 1201.2 Output Total 1890 7741 394 0381 Balance 990 1761 1892.2 -138.8 Weight 282 lb 6.594 oz 282 lb 10.122 oz 283 lb 11.759 oz 288 lb 12.889 oz Gen: intubated on vent CVS: RRR Lungs: Dec BS throughout the lung dimas Abd: soft NT/ND Ext: 2+ edema upper ext and lower ext CBC, BMP 02/02/17 06:10 02/02/17 06:10 Laboratory Tests 02/02/17 06:10 Calcium 7.2 L Phosphorus 8.5 H Magnesium 2.2 Albumin 1.3 L Current Medications Acetaminophen (Ofirmev Injection -) 1,000 mg IVPB Q6H PRN PRN Reason: FEVER Last Admin: 01/24/17 16:32 Dose: 1,000 mg Albuterol/Ipratropium (Duoneb -) 1 amp NEB QIDR [facility] Last Admin: 02/02/17 11:00 Dose: 1 amp Bacitracin (Bacitracin -) 1 applic TP BID [facility] Last Admin: 02/02/17 09:26 Dose: 1 applic Chlorhexidine Gluconate (Hibiclens For Decolonization -) 1 applic TP HS [facility] Last Admin: 02/01/17 21:51 Dose: 1 applic Heparin Sodium (Porcine) (Heparin -) 1,000 unit IVPUSH PRN PRN PRN Reason: Heparin Last Admin: 01/28/17 09:19 Dose: 1,000 unit Heparin Sodium (Porcine) (Heparin -) 5,000 unit IVPUSH PRN PRN PRN Reason: Heparin Last Admin: 01/17/17 07:41 Dose: 5,000 unit Famotidine/Sodium Chloride (Pepcid 20 Mg Premixed Ivpb -) 50 mls @ 100 mls/hr IVPB BID [facility] Last Admin: 02/02/17 09:24 Dose: 100 mls/hr Fluconazole (Diflucan 200 Mg/D5w Premixed Ivpb -) 100 mls @ 100 mls/hr IVPB DAILY [facility] Last Admin: 02/02/17 09:24 Dose: 100 mls/hr Heparin Sodium/Dextrose (Heparin Infusion -) 500 mls @ 20 mls/hr IVPB TITR [facility]ID ; 1,000 UNITS/HR PRN Reason: Protocol Last Titration: 02/02/17 09:25 Dose: 1,400 units/hr Meropenem 1 gm/ Dextrose 100 mls @ 100 mls/hr IVPB BID@0500,1700 [facility] PRN Reason: Protocol Last Admin: 02/02/17 05:51 Dose: 100 mls/hr Propofol (Diprivan -) 100 mls @ 3.486 mls/hr IVPB TITR DAVID; 5 MCG/KG/MIN PRN Reason: Protocol Last Admin: 02/01/17 09:30 Dose: 7 mls/hr Piperacillin Sod/Tazobactam Sod (Zosyn 2.25gm Ivpb (Pre-Docked)) 50 mls @ 100 mls/hr IVPB Q6H-IV [facility] PRN Reason: Protocol Last Admin: 02/02/17 09:33 Dose: 100 mls/hr Dobutamine HCl 250,000 mcg/ (Sodium Chloride) 250 mls @ 37.59 mls/hr IV TITR [facility]ID; 5 MCG/KG/MIN PRN Reason: Protocol Last Admin: 02/02/17 08:24 Dose: 37.59 mls/hr Furosemide 100 mg/ Sodium (Chloride) 50 mls @ 7.5 mls/hr IVPB TITR [facility]ID PRN Reason: 15 MG/HR Metoprolol Tartrate (Lopressor Injection -) 5 mg IVPB Q8H-IV [facility] Last Admin: 02/02/17 09:25 Dose: 5 mg Sevelamer Carbonate (Renvela Powder Packet -) 0.8 gm NGT TIDCM [facility] Last Admin: 02/02/17 08:06 Dose: 0.8 gm A/P 81 year old woman with PMhx of CKD? (Atrophic Kidney seen on US which is a chronic finding), Diverticulosis, DVT/PE on Warfarin, Hypertension who presented with Abd pain and found to have perforated bowel with diverticulitis s /p bowel resection with colostomy with JG with Cr of 2. #Non-oliguric acute kidney failure with total body volume overload and respiratory failure Renal function without improvement, pt grossly volume overloaded increase Lasix gtt to 15mg per hour if pt fails to respond to escalating dose of diuretics may need HD/UF to achieve evolemia discussed case with ICU team given pts low LVEF pt will have a high morbidity on dialysis but if no clinical improvement dialysis may be warranted. #Sepsis/Shock/Perforated Abd viscus Continue ICU care Possible Trach for prolonged respiratory failure Jair Medley DO Problem List - Problems (1) Perforated bowel Code(s): K63.1 - PERFORATION OF INTESTINE (NONTRAUMATIC) (2) Sepsis Code(s): A41.9 - SEPSIS, UNSPECIFIED ORGANISM Qualifiers: Qualified Code(s): A41.9 - Sepsis, unspecified organism (3) Acute renal failure (ARF) Code(s): N17.9 - ACUTE KIDNEY FAILURE, UNSPECIFIED (4) CKD (chronic kidney disease) Code(s): N18.9 - CHRONIC KIDNEY DISEASE, UNSPECIFIED (5) Hypertension Code(s): I10 - ESSENTIAL (PRIMARY) HYPERTENSION (6) Diverticulosis Code(s): K57.90 - DVRTCLOS OF INTEST, PART UNSP, W/O PERF OR ABSCESS W/O BLEED
--- NOTE | 2017-02-02 15:44 | PN ---
Progress Note, Physician History of Present Illness: intubated sedated - Current Medication List Current Medications: Active Medications Acetaminophen (Ofirmev Injection -) 1,000 mg IVPB Q6H PRN PRN Reason: FEVER Last Admin: 01/24/17 16:32 Dose: 1,000 mg Albuterol/Ipratropium (Duoneb -) 1 amp NEB QIDR [facility] Last Admin: 02/02/17 11:00 Dose: 1 amp Bacitracin (Bacitracin -) 1 applic TP BID [facility] Last Admin: 02/02/17 09:26 Dose: 1 applic Chlorhexidine Gluconate (Hibiclens For Decolonization -) 1 applic TP HS [facility] Last Admin: 02/01/17 21:51 Dose: 1 applic Heparin Sodium (Porcine) (Heparin -) 1,000 unit IVPUSH PRN PRN PRN Reason: Heparin Last Admin: 01/28/17 09:19 Dose: 1,000 unit Heparin Sodium (Porcine) (Heparin -) 5,000 unit IVPUSH PRN PRN PRN Reason: Heparin Last Admin: 01/17/17 07:41 Dose: 5,000 unit Famotidine/Sodium Chloride (Pepcid 20 Mg Premixed Ivpb -) 50 mls @ 100 mls/hr IVPB BID [facility] Last Admin: 02/02/17 09:24 Dose: 100 mls/hr Fluconazole (Diflucan 200 Mg/D5w Premixed Ivpb -) 100 mls @ 100 mls/hr IVPB DAILY [facility] Last Admin: 02/02/17 09:24 Dose: 100 mls/hr Heparin Sodium/Dextrose (Heparin Infusion -) 500 mls @ 20 mls/hr IVPB TITR DAVID ; 1,000 UNITS/HR PRN Reason: Protocol Last Titration: 02/02/17 09:25 Dose: 1,400 units/hr Meropenem 1 gm/ Dextrose 100 mls @ 100 mls/hr IVPB BID@0500,1700 [facility] PRN Reason: Protocol Last Admin: 02/02/17 05:51 Dose: 100 mls/hr Propofol (Diprivan -) 100 mls @ 3.486 mls/hr IVPB TITR DAVID; 5 MCG/KG/MIN PRN Reason: Protocol Last Titration: 02/02/17 10:30 Dose: 0 mcg/kg/min Dobutamine HCl 250,000 mcg/ (Sodium Chloride) 250 mls @ 37.59 mls/hr IV TITR DAVID; 5 MCG/KG/MIN PRN Reason: Protocol Last Admin: 02/02/17 15:38 Dose: 37.59 mls/hr Furosemide 100 mg/ Sodium (Chloride) 50 mls @ 7.5 mls/hr IVPB TITR DAVID PRN Reason: 15 MG/HR Last Admin: 02/02/17 12:50 Dose: 7.5 mls/hr Metoprolol Tartrate (Lopressor Injection -) 5 mg IVPB Q8H-IV [facility] Last Admin: 02/02/17 09:25 Dose: 5 mg Sevelamer Carbonate (Renvela Powder Packet -) 0.8 gm NGT TIDCM [facility] Last Admin: 02/02/17 12:53 Dose: 0.8 gm - Objective Vital Signs: Vital Signs Temperature 98.7 F 02/02/17 14:00 Pulse Rate 99 H 02/02/17 15:38 Respiratory Rate 18 02/02/17 14:15 Blood Pressure 114/55 02/02/17 15:38 O2 Sat by Pulse Oximetry (%) 96 02/02/17 09:40 Constitutional: Yes: Other Neck: Yes: Supple Cardiovascular: Yes: Pulse Irregular, Other Respiratory: Yes: Intubated, Mechanically Ventilated Gastrointestinal: Yes: Other (open wound draiange tube in place still draiang pus) Genitourinary: Yes: Jennings Present Musculoskeletal: Yes: Other Extremities: Yes: Other Edema: LLE: 1+, RLE: 1+ Neurological: Yes: Other Labs: CBC, BMP 02/02/17 06:10 02/02/17 06:10 INR, PTT INR 1.12 (0.82-1.09) 01/31/17 06:05 Assessment/Plan 81 y/o old with multiple medical problems with perforated bowel post op Perforated bowel Peritonitis Sepsis s/p ex-lap with sigmoid resection, colostomy Resolving JG Lactic acidosis AF h/o DVT/PE septic shock plan continue current management rest continue abx nutrition monitor wbc rest continue current mgmt and as per icu stable continue to monitor the draiange from the anamaria bulb cc tim40 min
[2017-02-02] MEDS: HEPARIN INFUSION - 500 ML IVPB SCH (17:00)
--- NOTE | 2017-02-02 17:45 | PN ---
Progress Note (short form) - Note Progress Note: Reviewed charts, films, labs, vs, and i/o's. 81 yo, female, perforated diverticulitis, s/p bowel resection, c/b renal failure and respiratory failure. Unable to speak with Dr. Sheffield regarding consult request. Appears pt may benefit from trach for prolonged vent supp. - cont supp care - will follow
--- NOTE | 2017-02-02 19:38 | PN ---
Progress Note, Physician Chief Complaint: Intubated for respiratory failure remained critically sick on dobutmine drip and IV abx History of Present Illness: 81 yrs old admitted with c/o abd pain, nausea and vomiting with sepsis secondary to perforated sigmoid diverticulitis underwent explanatory laprotomy , sigmoid colon resection and colostomy on 01/09/2017 ,underwent IR guide aspiration of abscess today intubated for respiratory failure. on 01/20/2017 - Current Medication List Current Medications: Active Medications Acetaminophen (Ofirmev Injection -) 1,000 mg IVPB Q6H PRN PRN Reason: FEVER Last Admin: 01/24/17 16:32 Dose: 1,000 mg Albuterol/Ipratropium (Duoneb -) 1 amp NEB QIDR [facility] Last Admin: 02/02/17 16:50 Dose: 1 amp Bacitracin (Bacitracin -) 1 applic TP BID [facility] Last Admin: 02/02/17 09:26 Dose: 1 applic Chlorhexidine Gluconate (Hibiclens For Decolonization -) 1 applic TP HS [facility] Last Admin: 02/01/17 21:51 Dose: 1 applic Heparin Sodium (Porcine) (Heparin -) 1,000 unit IVPUSH PRN PRN PRN Reason: Heparin Last Admin: 01/28/17 09:19 Dose: 1,000 unit Heparin Sodium (Porcine) (Heparin -) 5,000 unit IVPUSH PRN PRN PRN Reason: Heparin Last Admin: 01/17/17 07:41 Dose: 5,000 unit Famotidine/Sodium Chloride (Pepcid 20 Mg Premixed Ivpb -) 50 mls @ 100 mls/hr IVPB BID [facility] Last Admin: 02/02/17 09:24 Dose: 100 mls/hr Fluconazole (Diflucan 200 Mg/D5w Premixed Ivpb -) 100 mls @ 100 mls/hr IVPB DAILY [facility] Last Admin: 02/02/17 09:24 Dose: 100 mls/hr Heparin Sodium/Dextrose (Heparin Infusion -) 500 mls @ 20 mls/hr IVPB TITR DAVID ; 1,000 UNITS/HR PRN Reason: Protocol Last Admin: 02/02/17 17:00 Dose: Not Given Meropenem 1 gm/ Dextrose 100 mls @ 100 mls/hr IVPB BID@0500,1700 [facility] PRN Reason: Protocol Last Admin: 02/02/17 17:03 Dose: 100 mls/hr Propofol (Diprivan -) 100 mls @ 3.486 mls/hr IVPB TITR DAVID; 5 MCG/KG/MIN PRN Reason: Protocol Last Titration: 02/02/17 10:30 Dose: 0 mcg/kg/min Dobutamine HCl 250,000 mcg/ (Sodium Chloride) 250 mls @ 37.59 mls/hr IV TITR DAVID; 5 MCG/KG/MIN PRN Reason: Protocol Last Admin: 02/02/17 15:38 Dose: 37.59 mls/hr Furosemide 100 mg/ Sodium (Chloride) 50 mls @ 7.5 mls/hr IVPB TITR DAVID PRN Reason: 15 MG/HR Last Admin: 02/02/17 18:05 Dose: 7.5 mls/hr Metoprolol Tartrate (Lopressor Injection -) 5 mg IVPB Q8H-IV [facility]ID Last Admin: 02/02/17 17:05 Dose: 5 mg Sevelamer Carbonate (Renvela Powder Packet -) 0.8 gm NGT TIDCM [facility] Last Admin: 02/02/17 17:04 Dose: 0.8 gm - Objective Vital Signs: Vital Signs Temperature 98.5 F 02/02/17 18:00 Pulse Rate 94 H 02/02/17 18:00 Respiratory Rate 22 02/02/17 19:06 Blood Pressure 103/60 02/02/17 18:00 O2 Sat by Pulse Oximetry (%) 96 02/02/17 09:40 General: Elderly F s/p intubated , unresponsive, not responding to verbal command. 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 Labs: CBC, BMP 02/02/17 06:10 02/02/17 06:10 INR, PTT INR 1.12 (0.82-1.09) 01/31/17 06:05 Problem List - Problems (1) Diverticulitis of large intestine with perforation and abscess without bleeding Assessment/Plan: S/P Sepsis, Explanatory laprotomy on 07/12/2016 F/U surgery recommendations, NPO , cont abx. Code(s): K57.20 - DVTRCLI OF LG INT W PERFORATION AND ABSCESS W/O BLEEDING (2) Left ventricular systolic dysfunction Assessment/Plan: F/U cardiology recommendation. Code(s): I51.9 - HEART DISEASE, UNSPECIFIED (3) Respiratory failure Assessment/Plan: s/p intubation saturation well, on Vent need tracheostomy, now DNR Code(s): J96.90 - RESPIRATORY FAILURE, UNSP, UNSP W HYPOXIA OR HYPERCAPNIA Qualifiers: Qualified Code(s): J96.01 - Acute respiratory failure with hypoxia (4) Abdominal abscess Assessment/Plan: s/p I and D at present in sepsis. cont current abx Code(s): K65.1 - PERITONEAL ABSCESS (5) Acute renal failure (ARF) Assessment/Plan: F/U renal recommondations Code(s): N17.9 - ACUTE KIDNEY FAILURE, UNSPECIFIED
[2017-02-02] MEDS ORDERED: DOBUTAMINE 250 MG/D5W - 250 ML ONE (20:58)
[2017-02-02] MEDS: CHLORHEXIDINE GLUCONATE 4% CLEANSER FOR DECOLONIZATION TP SCH (21:33)
[2017-02-03] MEDS: METOPROLOL TARTRATE 5 MG/5 ML VIAL IVPB SCH ×3 (02:00→18:55)
[2017-02-03] MEDS: MEROPENEM 1 GM in DEXTROSE 5%-WATER - 100 ML IVPB SCH ×2 (04:06→18:00)
[2017-02-03] MEDS: ALBUTEROL SO4 2.5/IPRATROPIUM 0.5 INH SOL 3 ML VIAL.NEB. NEB SCH ×5 (06:00→23:51)
[2017-02-03 06:49] LABS: MCH 31.9 pg (25.7-33.7); MCHC 33.2 g/dl (32.0-36.0); MEAN PLT VOLUME 9.3 fl (7.5-11.1); PLATELET COUNT 277 K/MM3 (134-434); RDW 16.1 % (11.6-15.6)
[2017-02-03] MEDS ORDERED: DOBUTAMINE 250 MG/D5W - 250 ML ONE ×3 (06:53→19:58)
[2017-02-03 07:19] LABS: ALBUMIN 1.2 g/dl (3.4-5.0); ANION GAP 17 (8-16); CALCIUM 7.2 mg/dL (8.5-10.1); CO2 21 mmol/L (21-32); CREATININE 3.4 mg/dL (0.55-1.02); GLUCOSE,RANDOM 88 mg/dL (74-106); MAGNESIUM 2.3 mg/dL (1.8-2.4); PHOSPHOROUS 8.7 mg/dL (2.5-4.9); SGOT/AST 16 U/L (15-37); SGPT/ALT 7 U/L (12-78)
[2017-02-03 07:21] LABS: ALK PHOS 115 U/L (45-117); BILIRUBIN,TOTAL 0.5 mg/dL (0.2-1.0); TOT PROT 4.7 g/dl (6.4-8.2)
--- NOTE | 2017-02-03 08:59 | PN ---
Progress Note (short form) - Note Progress Note: Attending Surgeon POD # 25 In ICU on vent; TF in progress; pt is DNR status. VSS AF abdomen-wound dessicated w/ some non viable exudate; fascia intact; stome w/ liquid output; JAMES character and volume remain the same WBC 14 IMP: s/p perforated sigmoid diverticulitis w/abscess formation PLAN: Continue present tx; Santyl for wound; she was evaluated for a trach; she is DNR status; ? repeat CT scan ?; prognosis remains poor of which family is aware. Taqueria Prado MD FACS
[2017-02-03] MEDS ORDERED: POTASSIUM CHLORIDE ORAL LIQUID 20 MEQ/15 ML PO ONE ×2 (09:03→11:00)
[2017-02-03] MEDS ORDERED: FUROSEMIDE 100 MG/10 ML INJECTABLE VIAL ONE ×3 (09:54→19:58)
[2017-02-03] MEDS: FAMOTIDINE 20 MG/50 ML IVPB 50 ML IVPB SCH ×2 (10:05→21:16)
[2017-02-03] MEDS: BACITRACIN 15 GM TUBE TOPICAL OINTMENT TP SCH ×2 (10:06→21:18)
[2017-02-03] MEDS: FLUCONAZOLE 200 MG/D5W 100 ML IVPB SCH (10:06)
--- NOTE | 2017-02-03 10:24 | CONSULT ---
Consult Consult Specialty:: Thoracic Surgery Referred by:: Dr. Jeremias Garcia Reason for Consultation:: Tracheostomy - History of Present Illness Chief Complaint: Respiratory failure History of Present Illness: An 81-year-old female with history of atrial fibrillation and DVT/PE who initially presented to [facility] with complaints of abdominal pain. Her workup showed perforated diverticulitis. Subsequently she underwent exploratory laparotomy, sigmoid resection and colostomy on 01/09/17. Her hospital course has been complicated by sepsis, [place], renal failure and respiratory failure. She was reintubated multiple times and failed to wean from ventilator support. She is currently sedated and unable to follow command. - History Source History Provided By: Medical Record Limitations to Obtaining History: Intubated - Past Medical History Cardio/Vascular: Yes: CHF, HTN Gastrointestinal: Yes: Diverticulitis, Diverticulosis Renal/: Yes: Renal Inusuff - Alcohol/Substance Use Hx Alcohol Use: No - Smoking History Smoking history: Former smoker Have you smoked in the past 12 months: No Home Medications - Allergies Allergies/Adverse Reactions: Allergies Allergy/AdvReac Type Severity Reaction Status Date / Time No Known Allergies Allergy Verified 01/09/17 12:33 - Home Medications Home Medications: Ambulatory Orders Atorvastatin Ca [Lipitor] 40 mg PO HS 01/09/17 Docusate Sodium [Colace -] 100 mg PO DAILY 01/09/17 Losartan Potassium [Cozaar] 50 mg PO DAILY 01/09/17 Metoprolol Succinate [Toprol Xl -] 50 mg PO DAILY 01/09/17 Oxycodone HCl/Acetaminophen [Percocet 5-325 mg Tablet] 1 tab PO Q6H 01/09/17 Risedronate Sodium [Actonel] 35 mg PO WEEKLY 01/09/17 Warfarin Sodium 3 mg PO HS 01/09/17 Review of Systems Unable to obtain ROS, reason: Intubated and sedated. - Review of Systems Gastrointestinal: reports: Abdominal Pain Physical Exam Vital Signs: Vital Signs Temperature 97.8 F 02/03/17 06:00 Pulse Rate 94 H 02/03/17 06:00 Respiratory Rate 16 02/03/17 06:00 Blood Pressure 91/57 02/03/17 06:00 O2 Sat by Pulse Oximetry (%) 96 02/02/17 20:39 Constitutional: Yes: Obese, Other (intubated, sedated) Eyes: Yes: PERRL HENT: Yes: Other (intubated) Neck: Yes: Trachea Midline Cardiovascular: Yes: Pulse Irregular Respiratory: Yes: Intubated, Mechanically Ventilated, Rales, Rhonchi Gastrointestinal: Yes: Abdomen, Obese (drain. open abdomen, fascia intact.), Hypoactive Bowel Sounds ...Rectal Exam: Yes: Deferred Renal/: Yes: WNL Breast(s): Yes: WNL Musculoskeletal: Yes: WNL Extremities: Yes: WNL Edema: Yes Edema: LLE: 1+, RLE: 1+ Peripheral Pulses WNL: Yes Integumentary: Yes: WNL Wound/Incision: Yes: Draining, Unapproximated Neurological: Yes: Unresponsive, Other (intubated, sedated) Psychiatric: Yes: Other (intubated, sedated) Labs: CBC, BMP 02/03/17 05:55 02/03/17 05:55 Imaging - Results Chest X-ray: Report Reviewed, Image Reviewed Assessment/Plan An 81-year-old female with history of atrial fibrillation, PE/DVT, perforated diverticulitis, s/p exploratory laparotomy, sigmoid resection, and colostomy, who developed postoperative complications including [place], sepsis, renal failure and respiratory failure. She was reintubated multiple times and failed to wean from ventilator support. She may benefit from tracheostomy tube placement for prolonged ventilatory support. The patient and family agreed to proceed with surgical intervention. 1. Continue supportive care 2. Wean vent as tolerated 3. HD per renal 4. Follow up ID and gen surgery 5. Thank you for the interesting consult. Will follow with you.
[2017-02-03] MEDS: COLLAGENASE CLOSTRIDIUM HIST. 30 GRAMS TUBE TP SCH ×2 (11:00→21:18)
--- NOTE | 2017-02-03 11:12 | PN ---
Progress Note, Physician History of Present Illness: patient seen and examined at bedside patient sedated and intubated remains afebrile - Current Medication List Current Medications: Active Medications Acetaminophen (Ofirmev Injection -) 1,000 mg IVPB Q6H PRN PRN Reason: FEVER Last Admin: 01/24/17 16:32 Dose: 1,000 mg Albuterol/Ipratropium (Duoneb -) 1 amp NEB QIDR [facility] Last Admin: 02/03/17 06:00 Dose: 1 amp Bacitracin (Bacitracin -) 1 applic TP BID [facility] Last Admin: 02/03/17 10:06 Dose: 1 applic Chlorhexidine Gluconate (Hibiclens For Decolonization -) 1 applic TP HS [facility] Last Admin: 02/02/17 21:33 Dose: 1 applic Collagenase (Santyl -) 1 applic TP BID [facility]ID Heparin Sodium (Porcine) (Heparin -) 1,000 unit IVPUSH PRN PRN PRN Reason: Heparin Last Admin: 01/28/17 09:19 Dose: 1,000 unit Heparin Sodium (Porcine) (Heparin -) 5,000 unit IVPUSH PRN PRN PRN Reason: Heparin Last Admin: 01/17/17 07:41 Dose: 5,000 unit Famotidine/Sodium Chloride (Pepcid 20 Mg Premixed Ivpb -) 50 mls @ 100 mls/hr IVPB BID [facility] Last Admin: 02/03/17 10:05 Dose: 100 mls/hr Fluconazole (Diflucan 200 Mg/D5w Premixed Ivpb -) 100 mls @ 100 mls/hr IVPB DAILY [facility] Last Admin: 02/03/17 10:06 Dose: 100 mls/hr Heparin Sodium/Dextrose (Heparin Infusion -) 500 mls @ 20 mls/hr IVPB TITR DAVID ; 1,000 UNITS/HR PRN Reason: Protocol Last Admin: 02/02/17 17:00 Dose: Not Given Meropenem 1 gm/ Dextrose 100 mls @ 100 mls/hr IVPB BID@0500,1700 [facility] PRN Reason: Protocol Last Admin: 02/03/17 04:06 Dose: 100 mls/hr Propofol (Diprivan -) 100 mls @ 3.486 mls/hr IVPB TITR DAVID; 5 MCG/KG/MIN PRN Reason: Protocol Last Titration: 02/02/17 10:30 Dose: 0 mcg/kg/min Dobutamine HCl 250,000 mcg/ (Sodium Chloride) 250 mls @ 37.59 mls/hr IV TITR DAVID; 5 MCG/KG/MIN PRN Reason: Protocol Last Admin: 02/02/17 15:38 Dose: 37.59 mls/hr Furosemide 100 mg/ Sodium (Chloride) 50 mls @ 10 mls/hr IVPB TITR DAVID PRN Reason: 20 MG/HR Metoprolol Tartrate (Lopressor Injection -) 5 mg IVPB Q8H-IV [facility]ID Last Admin: 02/03/17 02:00 Dose: 5 mg Potassium Chloride (Potassium Chloride Oral Liquid) 20 meq PO ONCE ONE Stop: 02/03/17 11:01 Sevelamer Carbonate (Renvela Powder Packet -) 0.8 gm NGT TIDCM DAVID Last Admin: 02/02/17 17:04 Dose: 0.8 gm - Objective Vital Signs: Vital Signs Temperature 97.8 F 02/03/17 06:00 Pulse Rate 94 H 02/03/17 06:00 Respiratory Rate 16 02/03/17 06:00 Blood Pressure 91/57 02/03/17 06:00 O2 Sat by Pulse Oximetry (%) 96 02/02/17 20:39 Constitutional: Yes: Other (sedated) Eyes: Yes: Other ( right pupil larger than left-normal per family. both are sluggishly reactive to light) HENT: Yes: Normocephalic. Neck: Yes: Supple, Trachea Midline Cardiovascular: Yes: Irregular, S1, S2 Respiratory: Yes: Other (bronchial breath sounds scattered crackles) Gastrointestinal: Yes: Soft, +Bowel Sounds, Other (incision C/D/I abdomen soft appropriately tender ostomy pink with good function. Watery diarrhea with high output. left JAMES drain with purulent drainage ) Genitourinary: Yes: Jennings Present Extremities: Yes: WNL Edema: yes bilateral upper and lower extremity edema Wound/Incision: Yes: Clean/Dry Neurological: Yes: sedated and intubated Labs: CBC, BMP 02/03/17 05:55 02/03/17 05:55 INR, PTT INR 1.12 (0.82-1.09) 01/31/17 06:05 - ....Imaging Chest X-ray: Report Reviewed, Image Reviewed Assessment/Plan 81F with a history of diverticulosis presents to the ED with perforated diverticulitis now post op s/p sigmoid resection with colostomy. perforated diverticulitis: patient is currently septic Source is from the abdomen. cultures noted-strep viridans and e. coli grew from culutres from abdomen. GPB anarobe is also growing will follow up with ID CT scan from 01/26/2017 show there is still an abscess that has decreased in size. f/u surgical team for further recommendations continue meropenem and diflucan per ID. f/u ID central line day #5 pain control PRN respiratory acidosis with superimposed metabolic acidosis: resolved Macrocytic anemia: B12 levels high Folate wnl Anemia: stable at 8.5 continue to trend daily acute on chronic respiratory failure:post-operative respiratory failure on minimal vent settings CT surgery consulted for trachestomy-possible to be done this week Post-op NSTEMI: cardiology consult appreciated likely from a combination of demand and decreased clearance from acute kidney injury on heparin gtt systolic CHF with severely reduced EF: increase lasix gtt to 20mg/hr dobutamine gtt continue per cardiology history of DVT/PE: coumadin on hold for now on heparin gtt monitor PTT per protocol JG: creatinine 3.4-with elevation of BUN to 83. unchanged from yesterday likely from a combination of heart failure and sepsis nephrology consult appreciated continue to trend lasix gtt to 20mg/hr f/u nephrology for further recommendations-continue lasix and dobutamine BID BMPs Afib: continue rate control with metoprolol 5mg IV q8h PRN continue heparin gtt HLD: not on medications at this time will restart lipitor at home dose when appropriate FEN: off IVF hyperphosphatemia: continue sevelamer replete hypokalemia tube feeds @ goal 35ml/hr -nepro PPx: SCDs on heparin gtt for full dose anticoagulation Pepcid PT consult when able to participate Bactracin to face where there is a small avulsion of skin from tape holding ET tube CCTime 35 min Palliative care consult for goals of care-spoke to family about the possibility of tracheostomy on thursday they will consider tracheostomy vs comfort care
[2017-02-03] MEDS ORDERED: PT OWN MED DRAWER 7, Y5N ONE ×3 (11:13→21:02)
--- NOTE | 2017-02-03 11:16 | PN ---
Progress Note (short form) - Note Progress Note: Renal Follow up for JG Pt seen and examined in the ICU intubated and sedated FiO2 is now reduced to 40% pt made ~2900 cc of urine yesterday BP stable on dobutamine gtt Vital Signs Temperature 97.8 F 02/03/17 06:00 Pulse Rate 94 H 02/03/17 06:00 Respiratory Rate 16 02/03/17 06:00 Blood Pressure 91/57 02/03/17 06:00 O2 Sat by Pulse Oximetry (%) 96 02/02/17 20:39 Intake & Output 01/31/17 02/01/17 02/02/17 02/03/17 23:59 23:59 23:59 23:59 Intake Total 3226 2884.2 3047.9 1614.2 Output Total 5528 767 4252 605 Balance 1761 1892.2 52.9 1009.2 Weight 282 lb 10.122 oz 283 lb 11.759 oz 288 lb 12.889 oz 288 lb 2.307 oz Gen: intubated on vent CVS: RRR Lungs: Dec BS throughout the lung dimas Abd: soft NT/ND Ext: 2+ edema upper ext and lower ext CBC, BMP 02/03/17 05:55 02/03/17 05:55 Laboratory Tests 02/03/17 05:55 Calcium 7.2 L Phosphorus 8.7 H Magnesium 2.3 Albumin 1.2 L Current Medications Acetaminophen (Ofirmev Injection -) 1,000 mg IVPB Q6H PRN PRN Reason: FEVER Last Admin: 01/24/17 16:32 Dose: 1,000 mg Albuterol/Ipratropium (Duoneb -) 1 amp NEB QIDR [facility] Last Admin: 02/03/17 06:00 Dose: 1 amp Bacitracin (Bacitracin -) 1 applic TP BID DAVID Last Admin: 02/03/17 10:06 Dose: 1 applic Chlorhexidine Gluconate (Hibiclens For Decolonization -) 1 applic TP HS [facility] Last Admin: 02/02/17 21:33 Dose: 1 applic Collagenase (Santyl -) 1 applic TP BID DAVID Heparin Sodium (Porcine) (Heparin -) 1,000 unit IVPUSH PRN PRN PRN Reason: Heparin Last Admin: 01/28/17 09:19 Dose: 1,000 unit Heparin Sodium (Porcine) (Heparin -) 5,000 unit IVPUSH PRN PRN PRN Reason: Heparin Last Admin: 01/17/17 07:41 Dose: 5,000 unit Famotidine/Sodium Chloride (Pepcid 20 Mg Premixed Ivpb -) 50 mls @ 100 mls/hr IVPB BID DAVID Last Admin: 02/03/17 10:05 Dose: 100 mls/hr Fluconazole (Diflucan 200 Mg/D5w Premixed Ivpb -) 100 mls @ 100 mls/hr IVPB DAILY [facility]ID Last Admin: 02/03/17 10:06 Dose: 100 mls/hr Heparin Sodium/Dextrose (Heparin Infusion -) 500 mls @ 20 mls/hr IVPB TITR DAVID ; 1,000 UNITS/HR PRN Reason: Protocol Last Admin: 02/02/17 17:00 Dose: Not Given Meropenem 1 gm/ Dextrose 100 mls @ 100 mls/hr IVPB BID@0500,1700 DAVID PRN Reason: Protocol Last Admin: 02/03/17 04:06 Dose: 100 mls/hr Propofol (Diprivan -) 100 mls @ 3.486 mls/hr IVPB TITR DAVID; 5 MCG/KG/MIN PRN Reason: Protocol Last Titration: 02/02/17 10:30 Dose: 0 mcg/kg/min Dobutamine HCl 250,000 mcg/ (Sodium Chloride) 250 mls @ 37.59 mls/hr IV TITR DAVID; 5 MCG/KG/MIN PRN Reason: Protocol Last Admin: 02/02/17 15:38 Dose: 37.59 mls/hr Furosemide 100 mg/ Sodium (Chloride) 50 mls @ 10 mls/hr IVPB TITR DAVID PRN Reason: 20 MG/HR Metoprolol Tartrate (Lopressor Injection -) 5 mg IVPB Q8H-IV DAVID Last Admin: 02/03/17 02:00 Dose: 5 mg Potassium Chloride (Potassium Chloride Oral Liquid) 20 meq PO ONCE ONE Stop: 02/03/17 11:01 Sevelamer Carbonate (Renvela Powder Packet -) 0.8 gm NGT TIDCM DAVID Last Admin: 02/02/17 17:04 Dose: 0.8 gm A/P 81 year old woman with PMhx of CKD? (Atrophic Kidney seen on US which is a chronic finding), Diverticulosis, DVT/PE on Warfarin, Hypertension who presented with Abd pain and found to have perforated bowel with diverticulitis s /p bowel resection with colostomy with JG with Cr of 2. #Non-oliguric acute kidney failure with total body volume overload and respiratory failure Renal function stable no acidosis, hyperkalemia to warrant urgent dialysis pt is responsive to IV lasix gtt, increase rate to 20mg per hour goal is to keep pt net negative keep MAP > 65 #Hyponatremia secondary to total body volume overload in setting of HF and JG Continue IV diuretics attempt to minimize drips as much as possible change any drops to NS if possible #Sepsis/Shock/Perforated Abd viscus Continue ICU care Jair Medley DO Problem List - Problems (1) Perforated bowel Code(s): K63.1 - PERFORATION OF INTESTINE (NONTRAUMATIC) (2) Sepsis Code(s): A41.9 - SEPSIS, UNSPECIFIED ORGANISM Qualifiers: Qualified Code(s): A41.9 - Sepsis, unspecified organism (3) Acute renal failure (ARF) Code(s): N17.9 - ACUTE KIDNEY FAILURE, UNSPECIFIED (4) CKD (chronic kidney disease) Code(s): N18.9 - CHRONIC KIDNEY DISEASE, UNSPECIFIED (5) Hypertension Code(s): I10 - ESSENTIAL (PRIMARY) HYPERTENSION (6) Diverticulosis Code(s): K57.90 - DVRTCLOS OF INTEST, PART UNSP, W/O PERF OR ABSCESS W/O BLEED
[2017-02-03] MEDS: SEVELAMER CARBONATE 0.8 GM POWDER PACKET NGT SCH ×3 (11:18→18:53)
[2017-02-03] MEDS: FUROSEMIDE INJECTION 100 MG in SODIUM CHLORIDE 40 ML IVPB SCH ×2 (11:19→15:22)
--- NOTE | 2017-02-03 13:10 | PN ---
Teaching Attending Note Name of Resident: Arya Cook ATTENDING PHYSICIAN STATEMENT I saw and evaluated the patient. I reviewed the resident's note and discussed the case with the resident. I agree with the resident's findings and plan as documented. SUBJECTIVE: Pt seen and examined in the ICU. Remains intubated, sedated on dobutamine and lasix gtts. Diuresed well with increased lasix gtt. OBJECTIVE: Last Vital Signs Temp Pulse Resp BP Pulse Ox 97.8 F 98 H 22 117/82 95 02/03/17 06:00 02/03/17 11:18 02/03/17 12:12 02/03/17 11:18 02/03/17 09:40 Intake & Output 01/31/17 02/01/17 02/02/17 02/03/17 23:59 23:59 23:59 23:59 Intake Total 3226 2884.2 3047.9 1614.2 Output Total 6826 894 9063 605 Balance 1761 1892.2 52.9 1009.2 Weight 282 lb 10.122 oz 283 lb 11.759 oz 288 lb 12.889 oz 288 lb 2.307 oz Gen: intubated, sedated Heart: RRR Lung: bilateral rhonchi Abd: soft, open incision, +JAMES with purulent drainage Ext: + edema CBC, BMP 02/03/17 05:55 02/03/17 05:55 Active Medications Acetaminophen (Ofirmev Injection -) 1,000 mg IVPB Q6H PRN PRN Reason: FEVER Last Admin: 01/24/17 16:32 Dose: 1,000 mg Albuterol/Ipratropium (Duoneb -) 1 amp NEB QIDR DAVID Last Admin: 02/03/17 11:10 Dose: 1 amp Bacitracin (Bacitracin -) 1 applic TP BID DAVID Last Admin: 02/03/17 10:06 Dose: 1 applic Chlorhexidine Gluconate (Hibiclens For Decolonization -) 1 applic TP HS DAVID Last Admin: 02/02/17 21:33 Dose: 1 applic Collagenase (Santyl -) 1 applic TP BID DAVID Heparin Sodium (Porcine) (Heparin -) 1,000 unit IVPUSH PRN PRN PRN Reason: Heparin Last Admin: 01/28/17 09:19 Dose: 1,000 unit Heparin Sodium (Porcine) (Heparin -) 5,000 unit IVPUSH PRN PRN PRN Reason: Heparin Last Admin: 01/17/17 07:41 Dose: 5,000 unit Famotidine/Sodium Chloride (Pepcid 20 Mg Premixed Ivpb -) 50 mls @ 100 mls/hr IVPB BID DAVID Last Admin: 02/03/17 10:05 Dose: 100 mls/hr Fluconazole (Diflucan 200 Mg/D5w Premixed Ivpb -) 100 mls @ 100 mls/hr IVPB DAILY DAVID Last Admin: 02/03/17 10:06 Dose: 100 mls/hr Heparin Sodium/Dextrose (Heparin Infusion -) 500 mls @ 20 mls/hr IVPB TITR DAVID ; 1,000 UNITS/HR PRN Reason: Protocol Last Admin: 02/02/17 17:00 Dose: Not Given Meropenem 1 gm/ Dextrose 100 mls @ 100 mls/hr IVPB BID@0500,1700 DAVID PRN Reason: Protocol Last Admin: 02/03/17 04:06 Dose: 100 mls/hr Propofol (Diprivan -) 100 mls @ 3.486 mls/hr IVPB TITR DAVID; 5 MCG/KG/MIN PRN Reason: Protocol Last Titration: 02/02/17 10:30 Dose: 0 mcg/kg/min Dobutamine HCl 250,000 mcg/ (Sodium Chloride) 250 mls @ 37.59 mls/hr IV TITR DAVID; 5 MCG/KG/MIN PRN Reason: Protocol Last Admin: 02/02/17 15:38 Dose: 37.59 mls/hr Furosemide 100 mg/ Sodium (Chloride) 50 mls @ 10 mls/hr IVPB TITR DAVID PRN Reason: 20 MG/HR Last Admin: 02/03/17 11:19 Dose: 10 mls/hr Metoprolol Tartrate (Lopressor Injection -) 5 mg IVPB Q8H-IV DAVID Last Admin: 02/03/17 11:18 Dose: 5 mg Sevelamer Carbonate (Renvela Powder Packet -) 0.8 gm NGT TIDCM DAVID Last Admin: 02/03/17 11:18 Dose: 0.8 gm ASSESSMENT AND PLAN: Acute Hypoxic Respiratory Failure Perforated Diverticulitis s/p Sigmoid Resection/Colostomy 01/09 Intra-abdominal Abscess Acute on Chronic Systolic Heart Failure Acute Kidney Injury Volume Overload h/o DVT/PE Atrial Fibrillation - continue antibiotics - monitor drain output - surgery f/u - continue dobutamine gtt - increase lasix gtt - taper FiO2, PEEP to keep SpO2 >90% - continue anticoagulation - poor prognosis - continue discussions regarding goals of care and advanced directives - will need tracheostomy if family wishes to continue aggressive care - continue ICU monitoring critical care time spent in reviewing chart, evaluating patient and formulating plan 38 min
[2017-02-03] MEDS: PROPOFOL 100 ML IVPB SCH (15:20)
[2017-02-03] MEDS: DOBUTAMINE HCL 250,000 MCG in SODIUM CHLORIDE 230 ML IV SCH (15:21)
[2017-02-03] MEDS ORDERED: LIDOCAINE 5% TOPICAL PATCH TP ONE (17:00)
--- NOTE | 2017-02-03 17:20 | PN ---
Progress Note, Physician History of Present Illness: intubated sedated drain on the left side removed wound of the abd --dressing removed wound looked at - Current Medication List Current Medications: Active Medications Acetaminophen (Ofirmev Injection -) 1,000 mg IVPB Q6H PRN PRN Reason: FEVER Last Admin: 01/24/17 16:32 Dose: 1,000 mg Albuterol/Ipratropium (Duoneb -) 1 amp NEB QIDR [facility] Last Admin: 02/03/17 11:10 Dose: 1 amp Bacitracin (Bacitracin -) 1 applic TP BID [facility] Last Admin: 02/03/17 10:06 Dose: 1 applic Chlorhexidine Gluconate (Hibiclens For Decolonization -) 1 applic TP HS [facility] Last Admin: 02/02/17 21:33 Dose: 1 applic Collagenase (Santyl -) 1 applic TP BID [facility] Last Admin: 02/03/17 11:00 Dose: 1 applic Heparin Sodium (Porcine) (Heparin -) 1,000 unit IVPUSH PRN PRN PRN Reason: Heparin Last Admin: 01/28/17 09:19 Dose: 1,000 unit Heparin Sodium (Porcine) (Heparin -) 5,000 unit IVPUSH PRN PRN PRN Reason: Heparin Last Admin: 01/17/17 07:41 Dose: 5,000 unit Famotidine/Sodium Chloride (Pepcid 20 Mg Premixed Ivpb -) 50 mls @ 100 mls/hr IVPB BID [facility] Last Admin: 02/03/17 10:05 Dose: 100 mls/hr Fluconazole (Diflucan 200 Mg/D5w Premixed Ivpb -) 100 mls @ 100 mls/hr IVPB DAILY [facility] Last Admin: 02/03/17 10:06 Dose: 100 mls/hr Heparin Sodium/Dextrose (Heparin Infusion -) 500 mls @ 20 mls/hr IVPB TITR DAVID ; 1,000 UNITS/HR PRN Reason: Protocol Last Admin: 02/02/17 17:00 Dose: Not Given Meropenem 1 gm/ Dextrose 100 mls @ 100 mls/hr IVPB BID@0500,1700 DAVID PRN Reason: Protocol Last Admin: 02/03/17 04:06 Dose: 100 mls/hr Propofol (Diprivan -) 100 mls @ 3.486 mls/hr IVPB TITR DAVID; 5 MCG/KG/MIN PRN Reason: Protocol Last Admin: 02/03/17 15:20 Dose: 7 mls/hr Dobutamine HCl 250,000 mcg/ (Sodium Chloride) 250 mls @ 37.59 mls/hr IV TITR DAVID; 5 MCG/KG/MIN PRN Reason: Protocol Last Admin: 02/03/17 15:21 Dose: 37.59 mls/hr Furosemide 100 mg/ Sodium (Chloride) 50 mls @ 10 mls/hr IVPB TITR DAVID PRN Reason: 20 MG/HR Last Admin: 02/03/17 15:22 Dose: 10 mls/hr Metoprolol Tartrate (Lopressor Injection -) 5 mg IVPB Q8H-IV DAVID Last Admin: 02/03/17 11:18 Dose: 5 mg Miscellaneous (Lidoderm Patch Removal) 1 each 2200 ONE Stop: 02/03/17 22:01 Sevelamer Carbonate (Renvela Powder Packet -) 0.8 gm NGT TIDCM DAVID Last Admin: 02/03/17 13:00 Dose: 0.8 gm - Objective Vital Signs: Vital Signs Temperature 97.8 F 02/03/17 06:00 Pulse Rate 95 H 02/03/17 15:21 Respiratory Rate 18 02/03/17 14:20 Blood Pressure 119/57 02/03/17 15:21 O2 Sat by Pulse Oximetry (%) 95 02/03/17 09:40 Constitutional: Yes: Other Cardiovascular: Yes: Pulse Irregular Respiratory: Yes: Intubated, Mechanically Ventilated Gastrointestinal: Yes: Normal Bowel Sounds, Other (draiange tube on the left side still draining) Musculoskeletal: Yes: Other Extremities: Yes: Other Edema: LLE: Trace, RLE: Trace Wound/Incision: Yes: Dressing Removed, Other (patients wound with slough) Labs: CBC, BMP 02/03/17 05:55 02/03/17 05:55 INR, PTT INR 1.12 (0.82-1.09) 01/31/17 06:05 Assessment/Plan 81 y/o old with multiple medical problems with perforated bowel post op Perforated bowel Peritonitis Sepsis s/p ex-lap with sigmoid resection, colostomy Resolving JG Lactic acidosis AF h/o DVT/PE septic shock plan continue current management rest continue abx nutrition monitor wbc i think patient should get his wound debrided there is a chance the wbc could be due to that cc tim40 min
--- NOTE | 2017-02-03 17:51 | PN ---
Progress Note, Physician Chief Complaint: Intubated for respiratory failure remained critically sick on dobutmine drip and IV abx History of Present Illness: 81 yrs old admitted with c/o abd pain, nausea and vomiting with sepsis secondary to perforated sigmoid diverticulitis underwent explanatory laprotomy , sigmoid colon resection and colostomy on 01/09/2017 ,underwent IR guide aspiration of abscess today intubated for respiratory failure. on 01/20/2017 - Current Medication List Current Medications: Active Medications Acetaminophen (Ofirmev Injection -) 1,000 mg IVPB Q6H PRN PRN Reason: FEVER Last Admin: 01/24/17 16:32 Dose: 1,000 mg Albuterol/Ipratropium (Duoneb -) 1 amp NEB QIDR [facility] Last Admin: 02/03/17 11:10 Dose: 1 amp Bacitracin (Bacitracin -) 1 applic TP BID [facility] Last Admin: 02/03/17 10:06 Dose: 1 applic Chlorhexidine Gluconate (Hibiclens For Decolonization -) 1 applic TP HS [facility] Last Admin: 02/02/17 21:33 Dose: 1 applic Collagenase (Santyl -) 1 applic TP BID [facility] Last Admin: 02/03/17 11:00 Dose: 1 applic Heparin Sodium (Porcine) (Heparin -) 1,000 unit IVPUSH PRN PRN PRN Reason: Heparin Last Admin: 01/28/17 09:19 Dose: 1,000 unit Heparin Sodium (Porcine) (Heparin -) 5,000 unit IVPUSH PRN PRN PRN Reason: Heparin Last Admin: 01/17/17 07:41 Dose: 5,000 unit Famotidine/Sodium Chloride (Pepcid 20 Mg Premixed Ivpb -) 50 mls @ 100 mls/hr IVPB BID [facility] Last Admin: 02/03/17 10:05 Dose: 100 mls/hr Fluconazole (Diflucan 200 Mg/D5w Premixed Ivpb -) 100 mls @ 100 mls/hr IVPB DAILY [facility] Last Admin: 02/03/17 10:06 Dose: 100 mls/hr Heparin Sodium/Dextrose (Heparin Infusion -) 500 mls @ 20 mls/hr IVPB TITR DAVID ; 1,000 UNITS/HR PRN Reason: Protocol Last Admin: 02/02/17 17:00 Dose: Not Given Meropenem 1 gm/ Dextrose 100 mls @ 100 mls/hr IVPB BID@0500,1700 DAVID PRN Reason: Protocol Last Admin: 02/03/17 04:06 Dose: 100 mls/hr Propofol (Diprivan -) 100 mls @ 3.486 mls/hr IVPB TITR DAVID; 5 MCG/KG/MIN PRN Reason: Protocol Last Admin: 02/03/17 15:20 Dose: 7 mls/hr Dobutamine HCl 250,000 mcg/ (Sodium Chloride) 250 mls @ 37.59 mls/hr IV TITR DAVID; 5 MCG/KG/MIN PRN Reason: Protocol Last Admin: 02/03/17 15:21 Dose: 37.59 mls/hr Furosemide 100 mg/ Sodium (Chloride) 50 mls @ 10 mls/hr IVPB TITR DAVID PRN Reason: 20 MG/HR Last Admin: 02/03/17 15:22 Dose: 10 mls/hr Metoprolol Tartrate (Lopressor Injection -) 5 mg IVPB Q8H-IV DAVID Last Admin: 02/03/17 11:18 Dose: 5 mg Miscellaneous (Lidoderm Patch Removal) 1 each MC 2200 ONE Stop: 02/03/17 22:01 Sevelamer Carbonate (Renvela Powder Packet -) 0.8 gm NGT TIDCM DAVID Last Admin: 02/03/17 13:00 Dose: 0.8 gm - Objective Vital Signs: Vital Signs Temperature 97.8 F 02/03/17 06:00 Pulse Rate 95 H 02/03/17 15:21 Respiratory Rate 18 02/03/17 14:20 Blood Pressure 119/57 02/03/17 15:21 O2 Sat by Pulse Oximetry (%) 95 02/03/17 09:40 General: Elderly F s/p intubated , unresponsive, not responding to verbal command. HEENT: ET tube at place, MM moist, PERRLA, NECK; NO NVD, No Bruit, Carotids + CHEST: B/L equal AE CVS: S1 S2 R no m/g/r ABD: S/p surgery, colostomy beg at place, mild distention, BS+ EXT: Trace edema feet, no calf tenderness, Pulses + SAMPLER OVENS: not communicative, not following command. Labs: CBC, BMP 02/03/17 05:55 02/03/17 05:55 INR, PTT INR 1.12 (0.82-1.09) 01/31/17 06:05 Problem List - Problems (1) Diverticulitis of large intestine with perforation and abscess without bleeding Assessment/Plan: S/P Sepsis, Explanatory laprotomy on 07/12/2016 F/U surgery recommendations, NPO , cont abx. Code(s): K57.20 - DVTRCLI OF LG INT W PERFORATION AND ABSCESS W/O BLEEDING (2) Left ventricular systolic dysfunction Assessment/Plan: F/U cardiology recommendation. Code(s): I51.9 - HEART DISEASE, UNSPECIFIED (3) Respiratory failure Assessment/Plan: s/p intubation saturation well, on Vent need tracheostomy, now DNR Code(s): J96.90 - RESPIRATORY FAILURE, UNSP, UNSP W HYPOXIA OR HYPERCAPNIA Qualifiers: Qualified Code(s): J96.01 - Acute respiratory failure with hypoxia (4) Abdominal abscess Assessment/Plan: Confort care no active management.. Code(s): K65.1 - PERITONEAL ABSCESS
[2017-02-03] MEDS: HEPARIN INFUSION - 500 ML IVPB SCH (18:52)
[2017-02-03 20:24] LABS: ANION GAP 19 (8-16); CALCIUM 7.5 mg/dL (8.5-10.1); CO2 19 mmol/L (21-32); CREATININE 3.4 mg/dL (0.55-1.02); GLUCOSE,RANDOM 95 mg/dL (74-106)
[2017-02-03] MEDS: CHLORHEXIDINE GLUCONATE 4% CLEANSER FOR DECOLONIZATION TP SCH (21:17)
[2017-02-03] MEDS ORDERED: BENZOIN/ALOE VERA/STORAX/TOLU 58 ML BOTTLE ONE (21:29)
[2017-02-03] MEDS ORDERED: LIDOCAINE PATCH REMOVAL MC ONE (22:00)
[2017-02-04] MEDS ORDERED: FUROSEMIDE 100 MG/10 ML INJECTABLE VIAL ONE ×4 (00:11→20:33)
[2017-02-04] MEDS ORDERED: PROPOFOL 100 ML ONE (00:11)
[2017-02-04] MEDS: METOPROLOL TARTRATE 5 MG/5 ML VIAL IVPB SCH ×3 (01:01→17:53)
[2017-02-04] MEDS ORDERED: DOBUTAMINE 250 MG/D5W - 250 ML ONE ×3 (03:50→18:58)
[2017-02-04 07:27] LABS: MCH 31.6 pg (25.7-33.7); MCHC 32.7 g/dl (32.0-36.0); MEAN CELL VOLUME 96.7 fl (80-96); MEAN PLT VOLUME 9.4 fl (7.5-11.1); PLATELET COUNT 287 K/MM3 (134-434); RDW 16.2 % (11.6-15.6); WHITE BLOOD COUNT 15.9 K/mm3 (4.0-10.0)
[2017-02-04 07:35] LABS: ALBUMIN 1.3 g/dl (3.4-5.0); ALK PHOS 121 U/L (45-117); ANION GAP 17 (8-16); BILIRUBIN,TOTAL 0.5 mg/dL (0.2-1.0); CALCIUM 7.4 mg/dL (8.5-10.1); CO2 20 mmol/L (21-32); CREATININE 3.4 mg/dL (0.55-1.02); GLUCOSE,RANDOM 91 mg/dL (74-106); MAGNESIUM 2.4 mg/dL (1.8-2.4); PHOSPHOROUS 8.9 mg/dL (2.5-4.9); SGOT/AST 16 U/L (15-37); SGPT/ALT 7 U/L (12-78); TOT PROT 4.8 g/dl (6.4-8.2)
[2017-02-04] MEDS: HEPARIN INFUSION - 500 ML IVPB SCH ×2 (08:07→21:17)
[2017-02-04] MEDS: MEROPENEM 1 GM in DEXTROSE 5%-WATER - 100 ML IVPB SCH ×2 (08:08→17:00)
[2017-02-04] MEDS ORDERED: INSULIN REGULAR HUMAN 100 UNITS/ML *VIAL ONE (08:20)
[2017-02-04] MEDS ORDERED: POTASSIUM CHLORIDE ORAL LIQUID 20 MEQ/15 ML PO ONE (09:15)
--- NOTE | 2017-02-04 09:22 | PN ---
Progress Note, Physician Chief Complaint: Intubated for respiratory failure remained critically sick on dobutmine drip and IV abx History of Present Illness: 81 yrs old admitted with c/o abd pain, nausea and vomiting with sepsis secondary to perforated sigmoid diverticulitis underwent explanatory laprotomy , sigmoid colon resection and colostomy on 01/09/2017 ,underwent IR guide aspiration of abscess today intubated for respiratory failure. on 01/20/2017 - Current Medication List Current Medications: Active Medications Acetaminophen (Ofirmev Injection -) 1,000 mg IVPB Q6H PRN PRN Reason: FEVER Last Admin: 01/24/17 16:32 Dose: 1,000 mg Albuterol/Ipratropium (Duoneb -) 1 amp NEB QIDR [facility] Last Admin: 02/03/17 23:51 Dose: 1 amp Bacitracin (Bacitracin -) 1 applic TP BID [facility] Last Admin: 02/03/17 21:18 Dose: 1 applic Chlorhexidine Gluconate (Hibiclens For Decolonization -) 1 applic TP HS [facility] Last Admin: 02/03/17 21:17 Dose: 1 applic Collagenase (Santyl -) 1 applic TP BID [facility] Last Admin: 02/03/17 21:18 Dose: 1 applic Heparin Sodium (Porcine) (Heparin -) 1,000 unit IVPUSH PRN PRN PRN Reason: Heparin Last Admin: 01/28/17 09:19 Dose: 1,000 unit Heparin Sodium (Porcine) (Heparin -) 5,000 unit IVPUSH PRN PRN PRN Reason: Heparin Last Admin: 01/17/17 07:41 Dose: 5,000 unit Famotidine/Sodium Chloride (Pepcid 20 Mg Premixed Ivpb -) 50 mls @ 100 mls/hr IVPB BID [facility] Last Admin: 02/03/17 21:16 Dose: 100 mls/hr Fluconazole (Diflucan 200 Mg/D5w Premixed Ivpb -) 100 mls @ 100 mls/hr IVPB DAILY [facility] Last Admin: 02/03/17 10:06 Dose: 100 mls/hr Heparin Sodium/Dextrose (Heparin Infusion -) 500 mls @ 20 mls/hr IVPB TITR DAVID ; 1,000 UNITS/HR PRN Reason: Protocol Last Admin: 02/04/17 08:07 Dose: 26 mls/hr Meropenem 1 gm/ Dextrose 100 mls @ 100 mls/hr IVPB BID@0500,1700 DAVID PRN Reason: Protocol Last Admin: 02/04/17 08:08 Dose: Not Given Propofol (Diprivan -) 100 mls @ 3.486 mls/hr IVPB TITR DAVID; 5 MCG/KG/MIN PRN Reason: Protocol Last Titration: 02/03/17 19:00 Dose: 12.04 mcg/kg/min Dobutamine HCl 250,000 mcg/ (Sodium Chloride) 250 mls @ 37.59 mls/hr IV TITR DAVID; 5 MCG/KG/MIN PRN Reason: Protocol Last Admin: 02/03/17 15:21 Dose: 37.59 mls/hr Furosemide 100 mg/ Sodium (Chloride) 50 mls @ 10 mls/hr IVPB TITR DAVID PRN Reason: 20 MG/HR Last Admin: 02/03/17 15:22 Dose: 10 mls/hr Metoprolol Tartrate (Lopressor Injection -) 5 mg IVPB Q8H-IV DAVID Last Admin: 02/04/17 01:01 Dose: Not Given Potassium Chloride (Potassium Chloride Oral Liquid) 40 meq PO ONCE ONE Stop: 02/04/17 09:16 Sevelamer Carbonate (Renvela Powder Packet -) 0.8 gm NGT TIDCM DAVID Last Admin: 02/03/17 18:53 Dose: 0.8 gm - Objective Vital Signs: Vital Signs Temperature 98 F 02/04/17 00:00 Pulse Rate 100 H 02/04/17 01:01 Respiratory Rate 18 02/04/17 07:29 Blood Pressure 99/45 02/04/17 01:01 O2 Sat by Pulse Oximetry (%) 93 L 02/03/17 20:53 General: Elderly F s/p intubated , unresponsive, not responding to verbal command. 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 Labs: CBC, BMP 02/04/17 06:00 02/04/17 05:00 INR, PTT INR 1.12 (0.82-1.09) 01/31/17 06:05 Problem List - Problems (1) Diverticulitis of large intestine with perforation and abscess without bleeding Assessment/Plan: S/P Sepsis, Explanatory laprotomy on 07/12/2016 F/U surgery recommendations, NPO , cont abx. Code(s): K57.20 - DVTRCLI OF LG INT W PERFORATION AND ABSCESS W/O BLEEDING (2) Left ventricular systolic dysfunction Assessment/Plan: F/U cardiology recommendation. Code(s): I51.9 - HEART DISEASE, UNSPECIFIED (3) Respiratory failure Code(s): J96.90 - RESPIRATORY FAILURE, UNSP, UNSP W HYPOXIA OR HYPERCAPNIA Qualifiers: Qualified Code(s): J96.01 - Acute respiratory failure with hypoxia (4) Abdominal abscess Assessment/Plan: s/p I and D at present in sepsis. cont current abx Code(s): K65.1 - PERITONEAL ABSCESS
[2017-02-04] MEDS: FUROSEMIDE INJECTION 100 MG in SODIUM CHLORIDE 40 ML IVPB SCH ×2 (10:01→21:24)
[2017-02-04] MEDS: FLUCONAZOLE 200 MG/D5W 100 ML IVPB SCH (10:01)
[2017-02-04] MEDS: COLLAGENASE CLOSTRIDIUM HIST. 30 GRAMS TUBE TP SCH ×2 (10:02→21:25)
[2017-02-04] MEDS: DOBUTAMINE HCL 250,000 MCG in SODIUM CHLORIDE 230 ML IV SCH ×2 (10:02→11:55)
[2017-02-04] MEDS: FAMOTIDINE 20 MG/50 ML IVPB 50 ML IVPB SCH ×2 (10:03→21:23)
[2017-02-04] MEDS: SEVELAMER CARBONATE 0.8 GM POWDER PACKET NGT SCH ×3 (10:03→17:57)
[2017-02-04] MEDS: BACITRACIN 15 GM TUBE TOPICAL OINTMENT TP SCH ×2 (10:03→21:23)
[2017-02-04] MEDS ORDERED: PT OWN MED DRAWER 7, Y5N ONE ×3 (10:04→21:22)
[2017-02-04] MEDS: ALBUTEROL SO4 2.5/IPRATROPIUM 0.5 INH SOL 3 ML VIAL.NEB. NEB SCH ×2 (11:11→18:00)
--- NOTE | 2017-02-04 11:18 | PN ---
Progress Note (short form) - Note Progress Note: Renal Follow up for JG Pt seen and examined in the ICU intubated, sedated good urine output but still net positive Vital Signs Temperature 98 F 02/04/17 00:00 Pulse Rate 106 H 02/04/17 10:07 Respiratory Rate 20 02/04/17 10:25 Blood Pressure 109/62 02/04/17 10:07 O2 Sat by Pulse Oximetry (%) 93 L 02/03/17 20:53 Intake & Output 02/01/17 02/02/17 02/03/17 02/04/17 23:59 23:59 23:59 23:59 Intake Total 2884.2 3047.9 3483.2 Output Total 992 2995 2315 Balance 1892.2 52.9 1168.2 Weight 283 lb 11.759 oz 288 lb 12.889 oz 288 lb 2.307 oz Gen: intubated on vent CVS: RRR Lungs: Dec BS throughout the lung dimas Abd: soft NT/ND Ext: 2+ edema upper ext and lower ext CBC, BMP 02/04/17 06:00 02/04/17 05:00 Current Medications Acetaminophen (Ofirmev Injection -) 1,000 mg IVPB Q6H PRN PRN Reason: FEVER Last Admin: 01/24/17 16:32 Dose: 1,000 mg Albuterol/Ipratropium (Duoneb -) 1 amp NEB QIDR [facility] Last Admin: 02/04/17 11:11 Dose: 1 amp Bacitracin (Bacitracin -) 1 applic TP BID [facility] Last Admin: 02/04/17 10:03 Dose: 1 applic Chlorhexidine Gluconate (Hibiclens For Decolonization -) 1 applic TP HS [facility] Last Admin: 02/03/17 21:17 Dose: 1 applic Collagenase (Santyl -) 1 applic TP BID [facility] Last Admin: 02/04/17 10:02 Dose: 1 applic Heparin Sodium (Porcine) (Heparin -) 1,000 unit IVPUSH PRN PRN PRN Reason: Heparin Last Admin: 01/28/17 09:19 Dose: 1,000 unit Heparin Sodium (Porcine) (Heparin -) 5,000 unit IVPUSH PRN PRN PRN Reason: Heparin Last Admin: 01/17/17 07:41 Dose: 5,000 unit Famotidine/Sodium Chloride (Pepcid 20 Mg Premixed Ivpb -) 50 mls @ 100 mls/hr IVPB BID [facility] Last Admin: 02/04/17 10:03 Dose: 100 mls/hr Fluconazole (Diflucan 200 Mg/D5w Premixed Ivpb -) 100 mls @ 100 mls/hr IVPB DAILY [facility] Last Admin: 02/04/17 10:01 Dose: 100 mls/hr Heparin Sodium/Dextrose (Heparin Infusion -) 500 mls @ 20 mls/hr IVPB TITR [facility]ID ; 1,000 UNITS/HR PRN Reason: Protocol Last Admin: 02/04/17 08:07 Dose: 26 mls/hr Meropenem 1 gm/ Dextrose 100 mls @ 100 mls/hr IVPB BID@0500,1700 [facility] PRN Reason: Protocol Last Admin: 02/04/17 08:08 Dose: Not Given Propofol (Diprivan -) 100 mls @ 3.486 mls/hr IVPB TITR [facility]; 5 MCG/KG/MIN PRN Reason: Protocol Last Titration: 02/03/17 19:00 Dose: 12.04 mcg/kg/min Dobutamine HCl 250,000 mcg/ (Sodium Chloride) 250 mls @ 37.59 mls/hr IV TITR [facility]ID; 5 MCG/KG/MIN PRN Reason: Protocol Last Admin: 02/04/17 10:02 Dose: 37.59 mls/hr Furosemide 100 mg/ Sodium (Chloride) 50 mls @ 10 mls/hr IVPB TITR [facility] PRN Reason: 20 MG/HR Last Admin: 02/04/17 10:01 Dose: 10 mls/hr Metoprolol Tartrate (Lopressor Injection -) 5 mg IVPB Q8H-IV [facility] Last Admin: 02/04/17 10:05 Dose: 5 mg Sevelamer Carbonate (Renvela Powder Packet -) 0.8 gm NGT TIDCM [facility] Last Admin: 02/04/17 10:03 Dose: 0.8 gm A/P 81 year old woman with PMhx of CKD? (Atrophic Kidney seen on US which is a chronic finding), Diverticulosis, DVT/PE on Warfarin, Hypertension who presented with Abd pain and found to have perforated bowel with diverticulitis s /p bowel resection with colostomy with JG with Cr of 2. #Non-oliguric acute kidney failure with total body volume overload and respiratory failure BUN/Cr essentially stable continue IV lasix gtt will attempt to optimize diuretic response, add Metolazone and if no response give additional Lasix Bolous no [employer] at this time #Hyponatremia secondary to total body volume overload in setting of HF and JG Continue diuretics minimize fluid infusions as much as possible Trend Daily #Sepsis/Shock/Perforated Abd viscus Continue ICU care Jair Medley DO Problem List - Problems (1) Perforated bowel Code(s): K63.1 - PERFORATION OF INTESTINE (NONTRAUMATIC) (2) Sepsis Code(s): A41.9 - SEPSIS, UNSPECIFIED ORGANISM Qualifiers: Qualified Code(s): A41.9 - Sepsis, unspecified organism (3) Acute renal failure (ARF) Code(s): N17.9 - ACUTE KIDNEY FAILURE, UNSPECIFIED (4) CKD (chronic kidney disease) Code(s): N18.9 - CHRONIC KIDNEY DISEASE, UNSPECIFIED (5) Hypertension Code(s): I10 - ESSENTIAL (PRIMARY) HYPERTENSION (6) Diverticulosis Code(s): K57.90 - DVRTCLOS OF INTEST, PART UNSP, W/O PERF OR ABSCESS W/O BLEED
--- NOTE | 2017-02-04 11:20 | PN ---
Teaching Attending Note Name of Resident: Arya Cook ATTENDING PHYSICIAN STATEMENT I saw and evaluated the patient. I reviewed the resident's note and discussed the case with the resident. I agree with the resident's findings and plan as documented. SUBJECTIVE: Pt seen and examined in the ICU. Clinically unchanged, remains intubated, sedated, tachypneic. On dobutamine and lasix gtt but still net positive. OBJECTIVE: Last Vital Signs Temp Pulse Resp BP Pulse Ox 98 F 106 H 20 109/62 93 L 02/04/17 00:00 02/04/17 10:07 02/04/17 10:25 02/04/17 10:07 02/03/17 20:53 Intake & Output 02/01/17 02/02/17 02/03/17 02/04/17 23:59 23:59 23:59 23:59 Intake Total 2884.2 3047.9 3483.2 Output Total 992 2995 2315 Balance 1892.2 52.9 1168.2 Weight 283 lb 11.759 oz 288 lb 12.889 oz 288 lb 2.307 oz Gen: intubated, sedated, tachypneic Heart: tachycardic, irregular Lung: bilateral rhonchi Abd: soft, incision open, +JAMES drain with purulent drainage Ext: + edema CBC, BMP 02/04/17 06:00 02/04/17 05:00 Active Medications Acetaminophen (Ofirmev Injection -) 1,000 mg IVPB Q6H PRN PRN Reason: FEVER Last Admin: 01/24/17 16:32 Dose: 1,000 mg Albuterol/Ipratropium (Duoneb -) 1 amp NEB QIDR [facility] Last Admin: 02/04/17 11:11 Dose: 1 amp Bacitracin (Bacitracin -) 1 applic TP BID [facility] Last Admin: 02/04/17 10:03 Dose: 1 applic Chlorhexidine Gluconate (Hibiclens For Decolonization -) 1 applic TP HS [facility] Last Admin: 02/03/17 21:17 Dose: 1 applic Collagenase (Santyl -) 1 applic TP BID [facility] Last Admin: 02/04/17 10:02 Dose: 1 applic Heparin Sodium (Porcine) (Heparin -) 1,000 unit IVPUSH PRN PRN PRN Reason: Heparin Last Admin: 01/28/17 09:19 Dose: 1,000 unit Heparin Sodium (Porcine) (Heparin -) 5,000 unit IVPUSH PRN PRN PRN Reason: Heparin Last Admin: 01/17/17 07:41 Dose: 5,000 unit Famotidine/Sodium Chloride (Pepcid 20 Mg Premixed Ivpb -) 50 mls @ 100 mls/hr IVPB BID [facility] Last Admin: 02/04/17 10:03 Dose: 100 mls/hr Fluconazole (Diflucan 200 Mg/D5w Premixed Ivpb -) 100 mls @ 100 mls/hr IVPB DAILY [facility] Last Admin: 02/04/17 10:01 Dose: 100 mls/hr Heparin Sodium/Dextrose (Heparin Infusion -) 500 mls @ 20 mls/hr IVPB TITR [facility] ; 1,000 UNITS/HR PRN Reason: Protocol Last Admin: 02/04/17 08:07 Dose: 26 mls/hr Meropenem 1 gm/ Dextrose 100 mls @ 100 mls/hr IVPB BID@0500,1700 [facility] PRN Reason: Protocol Last Admin: 02/04/17 08:08 Dose: Not Given Propofol (Diprivan -) 100 mls @ 3.486 mls/hr IVPB TITR [facility]; 5 MCG/KG/MIN PRN Reason: Protocol Last Titration: 02/03/17 19:00 Dose: 12.04 mcg/kg/min Dobutamine HCl 250,000 mcg/ (Sodium Chloride) 250 mls @ 37.59 mls/hr IV TITR [facility]; 5 MCG/KG/MIN PRN Reason: Protocol Last Admin: 02/04/17 10:02 Dose: 37.59 mls/hr Furosemide 100 mg/ Sodium (Chloride) 50 mls @ 10 mls/hr IVPB TITR [facility]ID PRN Reason: 20 MG/HR Last Admin: 02/04/17 10:01 Dose: 10 mls/hr Metoprolol Tartrate (Lopressor Injection -) 5 mg IVPB Q8H-IV [facility] Last Admin: 02/04/17 10:05 Dose: 5 mg Sevelamer Carbonate (Renvela Powder Packet -) 0.8 gm NGT TIDCM [facility] Last Admin: 02/04/17 10:03 Dose: 0.8 gm ASSESSMENT AND PLAN: Acute Hypoxic Respiratory Failure Perforated Diverticulitis s/p Sigmoid Resection/Colostomy 01/09 Intra-abdominal Abscess Acute on Chronic Systolic Heart Failure Acute Kidney Injury Volume Overload h/o DVT/PE Atrial Fibrillation Hyponatremia - continue antibiotics - monitor drain output - surgery f/u - continue dobutamine gtt - lasix gtt - monitor urine output, creatinine - taper FiO2, PEEP to keep SpO2 >90% - continue anticoagulation - poor prognosis - continue discussions regarding goals of care and advanced directives - tracheostomy scheduled for tomorrow - continue ICU monitoring critical care time spent in reviewing chart, evaluating patient and formulating plan 38 min
--- NOTE | 2017-02-04 14:52 | PN ---
Progress Note, Physician History of Present Illness: patient seen and examined at bedside patient sedated and intubated remains afebrile - Current Medication List Current Medications: Active Medications Acetaminophen (Ofirmev Injection -) 1,000 mg IVPB Q6H PRN PRN Reason: FEVER Last Admin: 01/24/17 16:32 Dose: 1,000 mg Albuterol/Ipratropium (Duoneb -) 1 amp NEB QIDR [facility] Last Admin: 02/04/17 11:11 Dose: 1 amp Bacitracin (Bacitracin -) 1 applic TP BID [facility] Last Admin: 02/04/17 10:03 Dose: 1 applic Chlorhexidine Gluconate (Hibiclens For Decolonization -) 1 applic TP HS [facility] Last Admin: 02/03/17 21:17 Dose: 1 applic Collagenase (Santyl -) 1 applic TP BID [facility] Last Admin: 02/04/17 10:02 Dose: 1 applic Heparin Sodium (Porcine) (Heparin -) 1,000 unit IVPUSH PRN PRN PRN Reason: Heparin Last Admin: 01/28/17 09:19 Dose: 1,000 unit Heparin Sodium (Porcine) (Heparin -) 5,000 unit IVPUSH PRN PRN PRN Reason: Heparin Last Admin: 01/17/17 07:41 Dose: 5,000 unit Famotidine/Sodium Chloride (Pepcid 20 Mg Premixed Ivpb -) 50 mls @ 100 mls/hr IVPB BID [facility] Last Admin: 02/04/17 10:03 Dose: 100 mls/hr Fluconazole (Diflucan 200 Mg/D5w Premixed Ivpb -) 100 mls @ 100 mls/hr IVPB DAILY [facility] Last Admin: 02/04/17 10:01 Dose: 100 mls/hr Heparin Sodium/Dextrose (Heparin Infusion -) 500 mls @ 20 mls/hr IVPB TITR [facility]ID ; 1,000 UNITS/HR PRN Reason: Protocol Last Admin: 02/04/17 08:07 Dose: 26 mls/hr Meropenem 1 gm/ Dextrose 100 mls @ 100 mls/hr IVPB BID@0500,1700 DAVID PRN Reason: Protocol Last Admin: 02/04/17 08:08 Dose: Not Given Propofol (Diprivan -) 100 mls @ 3.486 mls/hr IVPB TITR [facility]ID; 5 MCG/KG/MIN PRN Reason: Protocol Last Titration: 02/03/17 19:00 Dose: 12.04 mcg/kg/min Dobutamine HCl 250,000 mcg/ (Sodium Chloride) 250 mls @ 37.59 mls/hr IV TITR DAVID; 5 MCG/KG/MIN PRN Reason: Protocol Last Admin: 02/04/17 10:02 Dose: 37.59 mls/hr Furosemide 100 mg/ Sodium (Chloride) 50 mls @ 10 mls/hr IVPB TITR [facility]ID PRN Reason: 20 MG/HR Last Admin: 02/04/17 10:01 Dose: 10 mls/hr Metoprolol Tartrate (Lopressor Injection -) 5 mg IVPB Q8H-IV [facility] Last Admin: 02/04/17 10:05 Dose: 5 mg Sevelamer Carbonate (Renvela Powder Packet -) 0.8 gm NGT TIDCM [facility] Last Admin: 02/04/17 10:03 Dose: 0.8 gm - Objective Vital Signs: Vital Signs Temperature 98.5 F 02/04/17 14:00 Pulse Rate 98 H 02/04/17 14:00 Respiratory Rate 21 02/04/17 14:00 Blood Pressure 106/64 02/04/17 14:00 O2 Sat by Pulse Oximetry (%) 93 L 02/03/17 20:53 Constitutional: Yes: Other (sedated) Eyes: Yes: Other ( right pupil larger than left-normal per family. both are sluggishly reactive to light) HENT: Yes: Normocephalic. Internal jugular central line in place without evidence of infection Neck: Yes: Supple, Trachea Midline Cardiovascular: Yes: Irregular, S1, S2 Respiratory: Yes: Other (bronchial breath sounds scattered crackles) Gastrointestinal: Yes: Soft, +Bowel Sounds, Other (incision C/D/I abdomen soft appropriately tender ostomy pink with good function. Watery diarrhea with high output. left JMAES drain with purulent drainage ) Genitourinary: Yes: Jennings Present Extremities: Yes: WNL Edema: yes bilateral upper and lower extremity edema Wound/Incision: Yes: midline incision skin open with fibrinous exudate Neurological: Yes: sedated and intubated Labs: CBC, BMP 02/04/17 06:00 02/04/17 05:00 INR, PTT INR 1.12 (0.82-1.09) 01/31/17 06:05 - ....Imaging Chest X-ray: Report Reviewed, Image Reviewed Assessment/Plan 81F with a history of diverticulosis presents to the ED with perforated diverticulitis now post op s/p sigmoid resection with colostomy. perforated diverticulitis: patient is currently septic Source is from the abdomen. cultures noted-strep viridans and e. coli grew from culutres from abdomen. GPB anaerobe is also growing will follow up with ID CT scan from 01/26/2017 show there is still an abscess that has decreased in size. f/u surgical team for further recommendations continue meropenem and diflucan per ID. f/u ID central line day #6 pain control PRN Will consider another CTAP in the near future for evaluation of collections. Will discuss with surgeon and ID. respiratory acidosis with superimposed metabolic acidosis: resolved Macrocytic anemia: B12 levels high Folate wnl Anemia: stable at 8.8 continue to trend daily acute on chronic respiratory failure:post-operative respiratory failure on minimal vent settings CT surgery consulted for trachestomy will be done tomorrow anticiapted at 11AM- will make NPO past midnight and hold hep gtt at 5am Post-op NSTEMI: cardiology consult appreciated likely from a combination of demand and decreased clearance from acute kidney injury on heparin gtt systolic CHF with severely reduced EF: lasix gtt to 20mg/hr BID BMP as patient is on a high dose lasix gtt will bolus 100mg lasix dobutamine gtt continue per cardiology history of DVT/PE: coumadin on hold for now on heparin gtt monitor PTT per protocol hold at 5am for tracheostomy JG: creatinine stable at 3.4-with elevation of BUN to 83. unchanged from yesterday likely from a combination of heart failure and sepsis nephrology consult appreciated continue to trend lasix gtt to 20mg/hr f/u nephrology for further recommendations-continue lasix and dobutamine give one dose of 10mg metolazone BID BMPs Afib: continue rate control with metoprolol 5mg IV q8h PRN continue heparin gtt HLD: not on medications at this time will restart lipitor at home dose when appropriate Wound with fibrinous exudate: santyl with wet to dry dressings BID FEN: off IVF hyperphosphatemia: continue sevelamer tube feeds @ goal 35ml/hr -nepro PPx: SCDs on heparin gtt for full dose anticoagulation Pepcid PT consult when able to participate Bactracin to face where there is a small avulsion of skin from tape holding ET tube CCTime 35 min Palliative care consult for goals of care-spoke to family about the possibility of tracheostomy on thursday they will consider tracheostomy vs comfort care
[2017-02-04] MEDS ORDERED: METOLAZONE 5 MG TABLET PO ONE (15:00)
[2017-02-04] MEDS ORDERED: FUROSEMIDE 100 MG/10 ML INJECTABLE VIAL IVPUSH ONE (15:30)
[2017-02-04] MEDS: PROPOFOL 100 ML IVPB SCH (16:00)
--- NOTE | 2017-02-04 16:23 | PN ---
Progress Note (short form) - Note Progress Note: Reviewed charts, films, labs, vs, and i/o's. Remains on vent. afeb. intubated/sedated. rrr. rhonchi b/l. CBC, BMP 02/04/17 06:00 02/04/17 05:00 INR, PTT INR 1.12 (0.82-1.09) 01/31/17 06:05 Vital Signs (72 hours) 02/01/17 02/01/17 02/01/17 17:00 17:16 17:31 Temperature Pulse Rate 94 H 82 Respiratory 22 Rate Blood Pressure 119/57 119/57 O2 Sat by Pulse Oximetry (%) 02/01/17 02/01/17 02/01/17 18:00 20:00 20:21 Temperature 97.8 F 97.9 F Pulse Rate 95 H 97 H Respiratory 20 20 20 Rate Blood Pressure 121/64 118/64 O2 Sat by Pulse 95 95 Oximetry (%) 02/01/17 02/01/17 02/02/17 21:13 22:00 00:00 Temperature 98.1 F Pulse Rate 100 H 97 H Respiratory 22 22 22 Rate Blood Pressure 111/58 110/53 O2 Sat by Pulse Oximetry (%) 02/02/17 02/02/17 02/02/17 01:32 02:00 02:12 Temperature 98.3 F Pulse Rate 94 H 94 H Respiratory 22 22 Rate Blood Pressure 106/52 100/50 O2 Sat by Pulse Oximetry (%) 02/02/17 02/02/17 02/02/17 04:00 04:33 06:00 Temperature 98.6 F Pulse Rate 105 H 101 H Respiratory 22 22 22 Rate Blood Pressure 103/51 113/56 O2 Sat by Pulse Oximetry (%) 02/02/17 02/02/17 02/02/17 06:33 08:00 08:24 Temperature 98.6 F Pulse Rate 100 H 100 H Respiratory 22 18 Rate Blood Pressure 126/49 126/49 O2 Sat by Pulse 95 Oximetry (%) 02/02/17 02/02/17 02/02/17 09:20 09:25 09:40 Temperature Pulse Rate 100 H 93 H Respiratory 22 Rate Blood Pressure 126/49 O2 Sat by Pulse 96 96 Oximetry (%) 02/02/17 02/02/17 02/02/17 10:00 12:00 12:12 Temperature 98.5 F 98.5 F Pulse Rate 100 H 99 H Respiratory 20 20 24 Rate Blood Pressure 94/45 112/54 O2 Sat by Pulse Oximetry (%) 02/02/17 02/02/17 02/02/17 14:00 14:15 15:38 Temperature 98.7 F Pulse Rate 99 H 99 H Respiratory 19 18 Rate Blood Pressure 114/55 114/55 O2 Sat by Pulse Oximetry (%) 02/02/17 02/02/17 02/02/17 16:00 16:15 17:05 Temperature 98.4 F Pulse Rate 105 H 100 H Respiratory 20 21 Rate Blood Pressure 108/56 108/56 O2 Sat by Pulse Oximetry (%) 02/02/17 02/02/17 02/02/17 18:00 19:06 20:00 Temperature 98.5 F 98.6 F Pulse Rate 94 H 96 H Respiratory 19 22 18 Rate Blood Pressure 103/60 112/57 O2 Sat by Pulse Oximetry (%) 02/02/17 02/02/17 02/02/17 20:33 20:39 22:00 Temperature 98.4 F Pulse Rate 89 Respiratory 18 19 Rate Blood Pressure 112/58 O2 Sat by Pulse 96 96 Oximetry (%) 02/02/17 02/03/17 02/03/17 22:33 00:00 00:30 Temperature 97.9 F Pulse Rate 98 H Respiratory 16 15 16 Rate Blood Pressure 104/53 O2 Sat by Pulse Oximetry (%) 02/03/17 02/03/17 02/03/17 02:00 03:24 04:00 Temperature 97.8 F 97.5 F L Pulse Rate 99 H 98 H Respiratory 15 19 20 Rate Blood Pressure 98/55 111/55 O2 Sat by Pulse Oximetry (%) 02/03/17 02/03/17 02/03/17 06:00 08:00 09:00 Temperature 97.8 F Pulse Rate 94 H 96 H Respiratory 16 14 18 Rate Blood Pressure 91/57 104/66 O2 Sat by Pulse 96 Oximetry (%) 02/03/17 02/03/17 02/03/17 09:20 09:35 09:40 Temperature Pulse Rate 92 H Respiratory 16 23 Rate Blood Pressure O2 Sat by Pulse 95 95 Oximetry (%) 02/03/17 02/03/17 02/03/17 10:00 11:18 12:00 Temperature 98.3 F Pulse Rate 97 H 98 H 101 H Respiratory 22 16 Rate Blood Pressure 117/62 117/82 121/63 O2 Sat by Pulse Oximetry (%) 02/03/17 02/03/17 02/03/17 12:12 14:00 14:20 Temperature Pulse Rate 93 H Respiratory 22 18 18 Rate Blood Pressure 117/63 O2 Sat by Pulse Oximetry (%) 02/03/17 02/03/17 02/03/17 15:21 16:00 16:20 Temperature 98 F Pulse Rate 95 H 92 H Respiratory 14 20 Rate Blood Pressure 119/57 117/57 O2 Sat by Pulse Oximetry (%) 02/03/17 02/03/17 02/03/17 18:00 18:42 18:55 Temperature Pulse Rate 91 H 97 H Respiratory 15 20 Rate Blood Pressure 112/54 104/71 O2 Sat by Pulse Oximetry (%) 02/03/17 02/03/17 02/03/17 20:00 20:46 20:53 Temperature 97.5 F L Pulse Rate 92 H Respiratory 18 19 Rate Blood Pressure 114/53 O2 Sat by Pulse 93 L 93 L Oximetry (%) 02/03/17 02/03/17 02/03/17 21:02 22:00 23:51 Temperature 98 F Pulse Rate 97 H Respiratory 20 20 19 Rate Blood Pressure 105/63 O2 Sat by Pulse Oximetry (%) 02/04/17 02/04/17 02/04/17 00:00 01:01 07:29 Temperature 98 F Pulse Rate 99 H 100 H Respiratory 13 18 Rate Blood Pressure 99/45 99/45 O2 Sat by Pulse Oximetry (%) 02/04/17 02/04/17 02/04/17 10:02 10:05 10:07 Temperature Pulse Rate 108 H 108 H 106 H Respiratory 22 Rate Blood Pressure 109/62 108/62 109/62 O2 Sat by Pulse Oximetry (%) 02/04/17 02/04/17 02/04/17 10:25 12:00 12:15 Temperature Pulse Rate 92 H Respiratory 20 17 14 Rate Blood Pressure 97/60 O2 Sat by Pulse Oximetry (%) 02/04/17 14:00 Temperature 98.5 F Pulse Rate 98 H Respiratory 21 Rate Blood Pressure 106/64 O2 Sat by Pulse Oximetry (%) a/p 81 yo, f, perforated diverticulitis c/b sepsis and resp failure. remains intubated/sedated. failed to wean from vent supp. pt/family agreed to proceed with tracheostomy tube placement. 1. cont icu supp care 2. abx 3. cxr qd 4. preop lab, coag in am 5. hold tube feed at mn and hep gtt at 5 am 6. case discussed with icu team 7. trach on 02/05. will follow.
--- NOTE | 2017-02-04 17:43 | PN ---
Progress Note, Physician History of Present Illness: intubated sedated no changes wbc has jumped up - Current Medication List Current Medications: Active Medications Acetaminophen (Ofirmev Injection -) 1,000 mg IVPB Q6H PRN PRN Reason: FEVER Last Admin: 01/24/17 16:32 Dose: 1,000 mg Albuterol/Ipratropium (Duoneb -) 1 amp NEB QIDR [facility] Last Admin: 02/04/17 11:11 Dose: 1 amp Bacitracin (Bacitracin -) 1 applic TP BID [facility] Last Admin: 02/04/17 10:03 Dose: 1 applic Chlorhexidine Gluconate (Hibiclens For Decolonization -) 1 applic TP HS [facility] Last Admin: 02/03/17 21:17 Dose: 1 applic Collagenase (Santyl -) 1 applic TP BID [facility] Last Admin: 02/04/17 10:02 Dose: 1 applic Heparin Sodium (Porcine) (Heparin -) 1,000 unit IVPUSH PRN PRN PRN Reason: Heparin Last Admin: 01/28/17 09:19 Dose: 1,000 unit Heparin Sodium (Porcine) (Heparin -) 5,000 unit IVPUSH PRN PRN PRN Reason: Heparin Last Admin: 01/17/17 07:41 Dose: 5,000 unit Famotidine/Sodium Chloride (Pepcid 20 Mg Premixed Ivpb -) 50 mls @ 100 mls/hr IVPB BID [facility] Last Admin: 02/04/17 10:03 Dose: 100 mls/hr Fluconazole (Diflucan 200 Mg/D5w Premixed Ivpb -) 100 mls @ 100 mls/hr IVPB DAILY [facility] Last Admin: 02/04/17 10:01 Dose: 100 mls/hr Heparin Sodium/Dextrose (Heparin Infusion -) 500 mls @ 20 mls/hr IVPB TITR [facility]ID ; 1,000 UNITS/HR PRN Reason: Protocol Last Admin: 02/04/17 08:07 Dose: 26 mls/hr Meropenem 1 gm/ Dextrose 100 mls @ 100 mls/hr IVPB BID@0500,1700 DAVID PRN Reason: Protocol Last Admin: 02/04/17 08:08 Dose: Not Given Propofol (Diprivan -) 100 mls @ 3.486 mls/hr IVPB TITR [facility]ID; 5 MCG/KG/MIN PRN Reason: Protocol Last Titration: 02/03/17 19:00 Dose: 12.04 mcg/kg/min Dobutamine HCl 250,000 mcg/ (Sodium Chloride) 250 mls @ 37.59 mls/hr IV TITR DAVID; 5 MCG/KG/MIN PRN Reason: Protocol Last Admin: 02/04/17 10:02 Dose: 37.59 mls/hr Furosemide 100 mg/ Sodium (Chloride) 50 mls @ 10 mls/hr IVPB TITR [facility]ID PRN Reason: 20 MG/HR Last Admin: 02/04/17 10:01 Dose: 10 mls/hr Metoprolol Tartrate (Lopressor Injection -) 5 mg IVPB Q8H-IV [facility] Last Admin: 02/04/17 10:05 Dose: 5 mg Sevelamer Carbonate (Renvela Powder Packet -) 0.8 gm NGT TIDCM [facility] Last Admin: 02/04/17 10:03 Dose: 0.8 gm - Objective Vital Signs: Vital Signs Temperature 98.8 F 02/04/17 16:00 Pulse Rate 106 H 02/04/17 16:00 Respiratory Rate 21 02/04/17 16:27 Blood Pressure 122/50 02/04/17 16:00 O2 Sat by Pulse Oximetry (%) 96 02/04/17 09:00 Constitutional: Yes: Other Cardiovascular: Yes: Pulse Irregular, Other Respiratory: Yes: Intubated, Mechanically Ventilated Gastrointestinal: Yes: Soft, Other (open wound with slough) Musculoskeletal: Yes: Other Extremities: Yes: Other Wound/Incision: Yes: Other Neurological: Yes: Other Labs: CBC, BMP 02/04/17 06:00 02/04/17 05:00 INR, PTT INR 1.12 (0.82-1.09) 01/31/17 06:05 Assessment/Plan 81 y/o old with multiple medical problems with perforated bowel post op Perforated bowel Peritonitis Sepsis s/p ex-lap with sigmoid resection, colostomy Resolving JG Lactic acidosis AF h/o DVT/PE septic shock plan continue current management rest continue abx nutrition monitor wbc wound debridement cc tim40 min
[2017-02-04 20:37] LABS: ANION GAP 16 (8-16); CALCIUM 7.5 mg/dL (8.5-10.1); CO2 20 mmol/L (21-32); CREATININE 3.4 mg/dL (0.55-1.02); GLUCOSE,RANDOM 103 mg/dL (74-106)
[2017-02-04 21:02] LABS: PHOSPHOROUS 8.9 mg/dL (2.5-4.9)
[2017-02-04] MEDS: CHLORHEXIDINE GLUCONATE 4% CLEANSER FOR DECOLONIZATION TP SCH (21:24)
[2017-02-04] MEDS ORDERED: FUROSEMIDE 40 MG/4 ML INJECTABLE VIAL IVPUSH ONE ×2 (22:41)
[2017-02-04] MEDS ORDERED: FUROSEMIDE 40 MG/4 ML INJECTABLE VIAL ONE (22:44)
--- NOTE | 2017-02-04 22:44 | PN ---
Progress Note (short form) - Note Progress Note: Call placed to Dr. Medley by RN @ 10:35 pm. Total urine output all day was [address] Medley recommended IV Lasix 80mg stat. Will monitor urine output and blood pressure.
[2017-02-05] MEDS ORDERED: FUROSEMIDE 100 MG/10 ML INJECTABLE VIAL ONE ×4 (00:43→21:31)
[2017-02-05] MEDS ORDERED: HEPARIN INFUSION - 500 ML IVPB ONE (02:03)
[2017-02-05] MEDS ORDERED: DOBUTAMINE 250 MG/D5W - 250 ML ONE ×3 (02:04→17:08)
[2017-02-05] MEDS: METOPROLOL TARTRATE 5 MG/5 ML VIAL IVPB SCH ×3 (02:51→17:11)
[2017-02-05] MEDS: ALBUTEROL SO4 2.5/IPRATROPIUM 0.5 INH SOL 3 ML VIAL.NEB. NEB SCH ×5 (05:59→23:17)
[2017-02-05 06:26] LABS: MCH 31.9 pg (25.7-33.7); MCHC 33.5 g/dl (32.0-36.0); MEAN CELL VOLUME 95.1 fl (80-96); MEAN PLT VOLUME 9.1 fl (7.5-11.1); PLATELET COUNT 333 K/MM3 (134-434); RDW 15.8 % (11.6-15.6)
[2017-02-05 06:47] LABS: INR 1.12 (0.82-1.09); PROTHROMBIN TIME (PATIENT) 12.4 SEC (9.98-11.88)
[2017-02-05] MEDS ORDERED: PT OWN MED DRAWER 7, Y5N ONE ×2 (06:47→17:20)
[2017-02-05 06:48] LABS: ACTIVATED PTT 34.7 SECONDS (26.9-34.4)
[2017-02-05 06:50] LABS: ALBUMIN 1.2 g/dl (3.4-5.0); ANION GAP 16 (8-16); CALCIUM 7.2 mg/dL (8.5-10.1); CO2 22 mmol/L (21-32); CREATININE 3.5 mg/dL (0.55-1.02); GLUCOSE,RANDOM 80 mg/dL (74-106); MAGNESIUM 2.3 mg/dL (1.8-2.4); SGOT/AST 13 U/L (15-37); SGPT/ALT 6 U/L (12-78)
[2017-02-05 06:51] LABS: ALK PHOS 103 U/L (45-117); BILIRUBIN,TOTAL 0.5 mg/dL (0.2-1.0); TOT PROT 4.6 g/dl (6.4-8.2)
[2017-02-05] MEDS: MEROPENEM 1 GM in DEXTROSE 5%-WATER - 100 ML IVPB SCH ×2 (07:00→17:22)
[2017-02-05 07:34] LABS: PHOSPHOROUS 8.4 mg/dL (2.5-4.9)
--- NOTE | 2017-02-05 09:20 | PN ---
Progress Note, Physician Chief Complaint: Intubated for respiratory failure remained critically sick on dobutmine drip and IV abx History of Present Illness: 81 yrs old admitted with c/o abd pain, nausea and vomiting with sepsis secondary to perforated sigmoid diverticulitis underwent explanatory laprotomy , sigmoid colon resection and colostomy on 01/09/2017 ,underwent IR guide aspiration of abscess today intubated for respiratory failure. on 01/20/2017, - Current Medication List Current Medications: Active Medications Acetaminophen (Ofirmev Injection -) 1,000 mg IVPB Q6H PRN PRN Reason: FEVER Last Admin: 01/24/17 16:32 Dose: 1,000 mg Albuterol/Ipratropium (Duoneb -) 1 amp NEB QIDR [facility] Last Admin: 02/05/17 05:59 Dose: 1 amp Bacitracin (Bacitracin -) 1 applic TP BID [facility] Last Admin: 02/04/17 21:23 Dose: 1 applic Chlorhexidine Gluconate (Hibiclens For Decolonization -) 1 applic TP HS [facility] Last Admin: 02/04/17 21:24 Dose: 1 applic Collagenase (Santyl -) 1 applic TP BID [facility] Last Admin: 02/04/17 21:25 Dose: 1 applic Heparin Sodium (Porcine) (Heparin -) 1,000 unit IVPUSH PRN PRN PRN Reason: Heparin Last Admin: 01/28/17 09:19 Dose: 1,000 unit Heparin Sodium (Porcine) (Heparin -) 5,000 unit IVPUSH PRN PRN PRN Reason: Heparin Last Admin: 01/17/17 07:41 Dose: 5,000 unit Famotidine/Sodium Chloride (Pepcid 20 Mg Premixed Ivpb -) 50 mls @ 100 mls/hr IVPB BID [facility] Last Admin: 02/04/17 21:23 Dose: 100 mls/hr Fluconazole (Diflucan 200 Mg/D5w Premixed Ivpb -) 100 mls @ 100 mls/hr IVPB DAILY [facility] Last Admin: 02/04/17 10:01 Dose: 100 mls/hr Heparin Sodium/Dextrose (Heparin Infusion -) 500 mls @ 20 mls/hr IVPB TITR DAVID ; 1,000 UNITS/HR PRN Reason: Protocol Last Admin: 02/04/17 21:17 Dose: 27 mls/hr Meropenem 1 gm/ Dextrose 100 mls @ 100 mls/hr IVPB BID@0500,1700 DAVID PRN Reason: Protocol Last Admin: 02/05/17 07:00 Dose: 100 mls/hr Propofol (Diprivan -) 100 mls @ 3.486 mls/hr IVPB TITR DAVID; 5 MCG/KG/MIN PRN Reason: Protocol Last Admin: 02/04/17 16:00 Dose: 8.4 mls/hr Dobutamine HCl 250,000 mcg/ (Sodium Chloride) 250 mls @ 37.59 mls/hr IV TITR DAVID; 5 MCG/KG/MIN PRN Reason: Protocol Last Admin: 02/04/17 11:55 Dose: 37.59 mls/hr Furosemide 100 mg/ Sodium (Chloride) 50 mls @ 10 mls/hr IVPB TITR DAVID PRN Reason: 20 MG/HR Last Admin: 02/04/17 21:24 Dose: 5 mls/hr Metoprolol Tartrate (Lopressor Injection -) 5 mg IVPB Q8H-IV DAVID Last Admin: 02/05/17 02:51 Dose: 5 mg Sevelamer Carbonate (Renvela Powder Packet -) 0.8 gm NGT TIDCM DAVID Last Admin: 02/04/17 17:57 Dose: 0.8 gm - Objective Vital Signs: Vital Signs Temperature 98.0 F 02/05/17 06:00 Pulse Rate 96 H 02/05/17 06:00 Respiratory Rate 15 02/05/17 06:53 Blood Pressure 101/49 02/05/17 06:00 O2 Sat by Pulse Oximetry (%) 94 L 02/05/17 00:18 General: Elderly F s/p intubated , unresponsive, not responding to verbal command. HEENT: ET tube at place, MM moist, PERRLA, NECK; NO NVD, No Bruit, Carotids + CHEST: B/L equal AE CVS: S1 S2 R no m/g/r ABD: S/p surgery, colostomy beg at place, mild distention, BS+ EXT: + edema feet, no calf tenderness, Pulses + LOTTERIES AGENT: not communicative, not following command. Labs: CBC, BMP 02/05/17 06:05 02/05/17 06:05 INR, PTT INR 1.12 (0.82-1.09) 02/05/17 06:05 Problem List - Problems (1) Diverticulitis of large intestine with perforation and abscess without bleeding Assessment/Plan: S/P Sepsis, Explanatory laprotomy on 07/12/2016 F/U surgery recommendations, NPO , cont abx. Code(s): K57.20 - DVTRCLI OF LG INT W PERFORATION AND ABSCESS W/O BLEEDING (2) Left ventricular systolic dysfunction Assessment/Plan: F/U cardiology recommendation. Code(s): I51.9 - HEART DISEASE, UNSPECIFIED (3) Respiratory failure Assessment/Plan: s/p intubation saturation well, on Vent need tracheostomy, now DNR Code(s): J96.90 - RESPIRATORY FAILURE, UNSP, UNSP W HYPOXIA OR HYPERCAPNIA Qualifiers: Qualified Code(s): J96.01 - Acute respiratory failure with hypoxia (4) Abdominal abscess Assessment/Plan: s/p I and D at present in sepsis. cont current abx Code(s): K65.1 - PERITONEAL ABSCESS
[2017-02-05] MEDS: FAMOTIDINE 20 MG/50 ML IVPB 50 ML IVPB SCH ×2 (09:23→21:18)
[2017-02-05] MEDS: SEVELAMER CARBONATE 0.8 GM POWDER PACKET NGT SCH ×3 (09:23→17:17)
[2017-02-05] MEDS: FLUCONAZOLE 200 MG/D5W 100 ML IVPB SCH (09:23)
[2017-02-05] MEDS: COLLAGENASE CLOSTRIDIUM HIST. 30 GRAMS TUBE TP SCH ×2 (09:24→21:18)
[2017-02-05] MEDS: BACITRACIN 15 GM TUBE TOPICAL OINTMENT TP SCH ×2 (09:25→21:18)
[2017-02-05] MEDS: PROPOFOL 100 ML IVPB SCH (11:04)
[2017-02-05] MEDS: FUROSEMIDE INJECTION 100 MG in SODIUM CHLORIDE 40 ML IVPB SCH (11:05)
[2017-02-05] MEDS: DOBUTAMINE HCL 250,000 MCG in SODIUM CHLORIDE 230 ML IV SCH ×2 (11:05→17:11)
[2017-02-05] MEDS ORDERED: LIDOCAINE 1%/EPI 1:100000 (20 ML MULTI DOSE VIAL) IJ ONE (11:44)
[2017-02-05] MEDS ORDERED: ROCURONIUM BROMIDE 50 MG/5 ML VIAL IV ONE (11:45)
[2017-02-05] MEDS ORDERED: fentaNYL CITRATE/PF 1,000 MCG/20 ML AMPUL IVPUSH ONE (11:45)
--- NOTE | 2017-02-05 11:53 | PN ---
Physical Exam: SUBJECTIVE: Patient seen and examined at bed side this morning. Sedated and Intubated in Mechanical ventilator- AC settings @ 14/450/60/7 Wound debridement was done at bedside this morning (By Dr. Prado) Brochoscopy and tracheostomy is being done at bed side (Dr. Solomon and Dr. Garcia) OBJECTIVE: Vital Signs Period Temp Pulse Resp BP Sys/Riley Pulse Ox Last 24 Hr 97.8 F-99.5 F 90-106 14-24 97-122/45-68 94-98 GENERAL: The patient is sedated and intubated. HEAD: Normal with no signs of trauma. EYES: PERRL, No pallor or icterus. ENT: Ears normal, moist mucous membranes. NECK: Trach being placed. LUNGS: B/L decreased breath sounds equal, bibasilar crackles, b/l rhonchi, accessory muscle use +. HEART: Regular rate and rhythm, S1, S2 without murmur, rub or gallop. ABDOMEN:After wound debridement, area looks clean and dry, ostomy looks pink with good function. 1 JAMES drain on the left side - thick brownish fluid ,Soft, mildly tender, nondistended, normoactive bowel sounds, no guarding, no rebound, no hepatosplenomegaly, no masses. EXTREMITIES: 2+ pulses, warm, well-perfused, B/L peripheral pitting edema in the LE and Upper extremity. NEUROLOGICAL: No facial droop, gait not observed. PSYCH: Normal mood, normal affect. SKIN: Warm, dry, normal turgor, no rashes or lesions note Laboratory Results - last 24 hr 02/04/17 02/05/17 02/05/17 18:30 06:05 06:05 WBC 16.0 H RBC 2.66 L Hgb 8.5 L Hct 25.3 L MCV 95.1 MCH 31.9 MCHC 33.5 RDW 15.8 H Plt Count 333 MPV 9.1 INR 1.12 PTT (Actin FS) 34.7 H D Sodium 122 L* Potassium 4.1 Chloride 86 L Carbon Dioxide 20 L Anion Gap 16 BUN 88 H Creatinine 3.4 H Creat Clearance w eGFR Random Glucose 103 Calcium 7.5 L Phosphorus 8.9 H Magnesium Total Bilirubin AST ALT Alkaline Phosphatase Total Protein Albumin 02/05/17 06:05 WBC RBC Hgb Hct MCV MCH MCHC RDW Plt Count MPV INR PTT (Actin FS) Sodium 123 L* Potassium 3.9 Chloride 85 L Carbon Dioxide 22 Anion Gap 16 BUN 89 H Creatinine 3.5 H Creat Clearance w eGFR 12.50 Random Glucose 80 D Calcium 7.2 L Phosphorus 8.4 H Magnesium 2.3 Total Bilirubin 0.5 AST 13 L ALT 6 L Alkaline Phosphatase 103 Total Protein 4.6 L Albumin 1.2 L Active Medications Generic Name Dose Route Start Last Admin Trade Name Aidee PRN Reason Stop Dose Admin Acetaminophen 1,000 mg 01/11/17 18:03 01/24/17 16:32 Ofirmev Injection - IVPB 1,000 mg Q6H PRN Administration FEVER Albuterol/Ipratropium 1 amp 01/11/17 00:00 02/05/17 05:59 Duoneb - NEB 1 amp QIDR DAVID Administration Bacitracin 1 applic 01/30/17 12:00 02/05/17 09:25 Bacitracin - TP 1 applic BID DAVID Administration Chlorhexidine Gluconate 1 applic 01/20/17 22:00 02/04/17 21:24 Hibiclens For Decolonization - TP 1 applic HS DAVID Administration Collagenase 1 applic 02/03/17 10:00 02/05/17 09:24 Santyl - TP 1 applic BID DAVID Administration Fentanyl Citrate 50 mcg 02/05/17 11:45 Fentanyl 1,000 Mcg/20 Ml Ampul IVPUSH 02/05/17 11:46 ONCE ONE Heparin Sodium (Porcine) 1,000 unit 01/12/17 16:52 01/28/17 09:19 Heparin - IVPUSH 1,000 unit PRN PRN Administration Heparin Heparin Sodium (Porcine) 5,000 unit 01/12/17 16:52 01/17/17 07:41 Heparin - IVPUSH 5,000 unit PRN PRN Administration Heparin Famotidine/Sodium Chloride 50 mls @ 100 mls/hr 01/10/17 10:00 02/05/17 09:23 Pepcid 20 Mg Premixed Ivpb - IVPB 100 mls/hr BID DAVID Administration Fluconazole 100 mls @ 100 mls/hr 01/11/17 13:00 02/05/17 09:23 Diflucan 200 Mg/D5w Premixed Ivpb - IVPB 100 mls/hr DAILY DAVID Administration Heparin Sodium/Dextrose 500 mls @ 20 mls/hr 01/12/17 17:00 02/04/17 21:17 Heparin Infusion - IVPB 27 mls/hr TITR DAVID Administration Protocol 1,000 UNITS/HR Meropenem 1 gm/ Dextrose 100 mls @ 100 mls/hr 01/15/17 17:00 02/05/17 07:00 IVPB 100 mls/hr BID@0500,1700 DAVID Administration Protocol Propofol 100 mls @ 3.486 mls/hr 01/24/17 10:00 02/05/17 11:04 Diprivan - IVPB 8.366 mls/hr TITR DAVID Administration Protocol 5 MCG/KG/MIN Dobutamine HCl 250,000 mcg/ 250 mls @ 37.59 mls/hr 01/29/17 12:45 02/05/17 11: 05 Sodium Chloride IV 37.59 mls/hr TITR DAVDI Administration Protocol 5 MCG/KG/MIN Furosemide 100 mg/ Sodium 50 mls @ 10 mls/hr 02/03/17 11:01 02/05/17 11:05 Chloride IVPB 10 mls/hr TITR DAVID Administration 20 MG/HR Metoprolol Tartrate 5 mg 01/11/17 15:20 02/05/17 09:24 Lopressor Injection - IVPB 5 mg Q8H-IV DAVID Administration Rocuronium [place] 80 mg 02/05/17 11:45 Zemuron - IV 02/05/17 11:46 ONCE ONE Sevelamer Carbonate 0.8 gm 01/26/17 17:30 02/05/17 09:23 Renvela Powder Packet - NGT Not Given TIDCM DAVID ASSESSMENT/PLAN: Patient is 81 year old female with a history of diverticulosis presents to the ED with perforated diverticulitis now post op day 5 s/p sigmoid resection with colostomy. # Acute hypoxic respiratory failure Intubated to protect the airways. On Dobutamine 5 and Propofol 12mcg/hr. Has been intubated since 01/20/17, tried sedation vacation but patient is not doing well, not a candidate for extubation Bronchoscopy ( Dr. Garcia. )and Tracheostomy completed by Dr. Solomon done today. Restart Heparin drip at 7pm today. # Anasarca with acute kidney failure- likely Acute Tubular Necrosis Failed to respond to diuretics, is still on IV Lasix drip, increased to 20 mg /hr today, yesterday she got Lasix 15 mg/hr yesterday, metolazone and IV lasix push. This morning, Urine output was 800mls, will monitor urine output and if it doesn't improve then plan for dialysis tomorrow. Patient agrees and gives consent for dialysis. On 02/02/2017 when patient was off sedation, she gave consent for dialysis and tracheostomy by nodding her head. Creatinine has been rising, today is 3.5 Avoid any nephrotoxic drugs # Hypotensive now on Dobutamine Central line changed on 12/29/2016 Dobutamine @ 5mcgs/hr # Sepsis likely secondary to perforated diverticulitis s/p sigmoid resection with colostomy day Day 27 with an abdominal abscess s/p IR guided drainage Leukocytosis increased to 16 from 15 s/p IR guided drainange had 2 JAMES drain, left sided removed, has Right sided JAMES drain draining brownish thick fluid, abscess grew Lactose fermenting gm negative bacilli, Strep sp Continue IV Meropenam Day 22 Continue IV Fluconazole Day 25 Blood culture/Urine culture negative. # NSTEMI after surgery Heparin Drip to be started at 7pm today. Troponin trending down # Atrial fibrillation-rate controlled Heparin Drip to be started at 7pm today. Rate control with metoprolol 5mg IV q8h # FEN: Not on IV fluids Electrolytes to be repeated tomorrow NPO (for trach), NG to be placed, Enteral feeds to be started tonight. # Prophylaxis For DVT: On Heparin drip For GI: IV Famotidine 20mg BID # Code Status: DNR # Dispo: Admitted in ICU. Continue ICU care Prognosis is poor. Illness, Investigation and Plan of care explained to the family members . They verbalized understanding. Case seen and discussed with Dr. Garcia. Visit type - Emergency Visit Emergency Visit: Yes ED Registration Date: 01/09/17 Care time: The patient presented to the Emergency Department on the above date and was hospitalized for further evaluation of their emergent condition. - New Patient This patient is new to me today: No - Critical Care Critical Care patient: Yes Total Critical Care Time (in minutes): 35 Critical Care Statement: The care of this patient involved high complexity decision making to prevent further life threatening deterioration of the patient 's condition and/or to evaluate & treat vital organ system(s) failure or risk of failure.
--- NOTE | 2017-02-05 12:20 | PN ---
Progress Note (short form) - Note Progress Note: Renal Follow up for JG Pt seen and examined in the ICU intubated, sedated urine output ~800 yesterday Lasix gtt was decreased to 10mg per hour was given metolazone and Lasix IVP yesterday Vital Signs Temperature 98 F 02/05/17 12:08 Pulse Rate 84 02/05/17 12:08 Respiratory Rate 22 02/05/17 12:08 Blood Pressure 108/64 02/05/17 12:08 O2 Sat by Pulse Oximetry (%) 100 02/05/17 12:08 Intake & Output 02/02/17 02/03/17 02/04/17 02/05/17 23:59 23:59 23:59 23:59 Intake Total 3047.9 3483.2 1963 827.1 Output Total 2995 2315 800 Balance 52.9 1168.2 1163 827.1 Weight 288 lb 12.889 oz 288 lb 2.307 oz 295 lb 3.183 oz Gen: intubated on vent CVS: RRR Lungs: Dec BS throughout the lung dimas Abd: soft NT/ND Ext: 2+ edema upper ext and lower ext CBC, BMP 02/05/17 06:05 02/05/17 06:05 Laboratory Tests 02/04/17 02/05/17 05:00 06:05 Calcium 7.2 L Phosphorus 8.9 H 8.4 H Magnesium 2.4 2.3 Albumin 1.3 L 1.2 L Current Medications Acetaminophen (Ofirmev Injection -) 1,000 mg IVPB Q6H PRN PRN Reason: FEVER Last Admin: 01/24/17 16:32 Dose: 1,000 mg Albuterol/Ipratropium (Duoneb -) 1 amp NEB QIDR [facility] Last Admin: 02/05/17 05:59 Dose: 1 amp Bacitracin (Bacitracin -) 1 applic TP BID [facility] Last Admin: 02/05/17 09:25 Dose: 1 applic Chlorhexidine Gluconate (Hibiclens For Decolonization -) 1 applic TP HS [facility] Last Admin: 02/04/17 21:24 Dose: 1 applic Collagenase (Santyl -) 1 applic TP BID [facility] Last Admin: 02/05/17 09:24 Dose: 1 applic Fentanyl Citrate (Fentanyl 1,000 Mcg/20 Ml Ampul) 50 mcg IVPUSH ONCE ONE Stop: 02/05/17 11:46 Heparin Sodium (Porcine) (Heparin -) 1,000 unit IVPUSH PRN PRN PRN Reason: Heparin Last Admin: 01/28/17 09:19 Dose: 1,000 unit Heparin Sodium (Porcine) (Heparin -) 5,000 unit IVPUSH PRN PRN PRN Reason: Heparin Last Admin: 01/17/17 07:41 Dose: 5,000 unit Famotidine/Sodium Chloride (Pepcid 20 Mg Premixed Ivpb -) 50 mls @ 100 mls/hr IVPB BID DAVID Last Admin: 02/05/17 09:23 Dose: 100 mls/hr Fluconazole (Diflucan 200 Mg/D5w Premixed Ivpb -) 100 mls @ 100 mls/hr IVPB DAILY [facility] Last Admin: 02/05/17 09:23 Dose: 100 mls/hr Heparin Sodium/Dextrose (Heparin Infusion -) 500 mls @ 20 mls/hr IVPB TITR DAVID ; 1,000 UNITS/HR PRN Reason: Protocol Last Admin: 02/04/17 21:17 Dose: 27 mls/hr Meropenem 1 gm/ Dextrose 100 mls @ 100 mls/hr IVPB BID@0500,1700 DAVID PRN Reason: Protocol Last Admin: 02/05/17 07:00 Dose: 100 mls/hr Propofol (Diprivan -) 100 mls @ 3.486 mls/hr IVPB TITR DAVID; 5 MCG/KG/MIN PRN Reason: Protocol Last Admin: 02/05/17 11:04 Dose: 8.366 mls/hr Dobutamine HCl 250,000 mcg/ (Sodium Chloride) 250 mls @ 37.59 mls/hr IV TITR DAVID; 5 MCG/KG/MIN PRN Reason: Protocol Last Admin: 02/05/17 11:05 Dose: 37.59 mls/hr Furosemide 100 mg/ Sodium (Chloride) 50 mls @ 10 mls/hr IVPB TITR DAVID PRN Reason: 20 MG/HR Last Admin: 02/05/17 11:05 Dose: 10 mls/hr Metoprolol Tartrate (Lopressor Injection -) 5 mg IVPB Q8H-IV DAVID Last Admin: 02/05/17 09:24 Dose: 5 mg Rocuronium [place] (Zemuron -) 80 mg IV ONCE ONE Stop: 02/05/17 11:46 Last Admin: 02/05/17 12:02 Dose: 80 mg Sevelamer Carbonate (Renvela Powder Packet -) 0.8 gm NGT [facility] Last Admin: 02/05/17 12:07 Dose: Not Given A/P 81 year old woman with PMhx of CKD? (Atrophic Kidney seen on US which is a chronic finding), Diverticulosis, DVT/PE on Warfarin, Hypertension who presented with Abd pain and found to have perforated bowel with diverticulitis s /p bowel resection with colostomy with JG with Cr of 2. 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 Dose all meds for eGFR < 15 #Hyponatremia secondary to total body volume overload in setting of HF and JG Continue diuretics minimize fluid infusions #Sepsis/Shock/Perforated Abd viscus Continue ICU care Jair Medley DO Problem List - Problems (1) Perforated bowel Code(s): K63.1 - PERFORATION OF INTESTINE (NONTRAUMATIC) (2) Sepsis Code(s): A41.9 - SEPSIS, UNSPECIFIED ORGANISM Qualifiers: Qualified Code(s): A41.9 - Sepsis, unspecified organism (3) Acute renal failure (ARF) Code(s): N17.9 - ACUTE KIDNEY FAILURE, UNSPECIFIED (4) CKD (chronic kidney disease) Code(s): N18.9 - CHRONIC KIDNEY DISEASE, UNSPECIFIED (5) Hypertension Code(s): I10 - ESSENTIAL (PRIMARY) HYPERTENSION (6) Diverticulosis Code(s): K57.90 - DVRTCLOS OF INTEST, PART UNSP, W/O PERF OR ABSCESS W/O BLEED
--- NOTE | 2017-02-05 13:01 | OP ---
Operative Note - Note: Operative Date: 02/05/17 Pre-Operative Diagnosis: Respiratory failure Operation: Flexible bronchoscopy, bronchial washing and percutaneous tracheostomy tube placement Findings: see dictation Implants: none Post-Operative Diagnosis: Same as Pre-op Surgeon: Peewee Solomon Applications Consultant: Jeremias Garcia MD Anesthesia: General Specimens Removed: bronchial washing Estimated Blood Loss (mls): 1 Operative Report Dictated: Yes
[2017-02-05] MEDS ORDERED: HEPARIN NA (PORCINE) 5,000 UNITS/ML 1ML VIAL IVPUSH PRN ×2 (13:41)
--- NOTE | 2017-02-05 13:50 | OP ---
DATE OF OPERATION: 02/05/2017 CO-SURGEON: Jeremias Garcia MD PREOPERATIVE DIAGNOSES: Respiratory failure and prolonged ventilator support. POSTOPERATIVE DIAGNOSES: Respiratory failure and prolonged ventilator support. OPERATION: Flexible bronchoscopy, bronchial washing, and percutaneous tracheostomy tube placement. ANESTHESIA: General endotracheal and local lidocaine 1%, 5 mL. ESTIMATED BLOOD LOSS: 1 mL SPECIMEN: Bronchial washing. COMPLICATIONS: None. INDICATION FOR SURGERY: The patient is an 81-year-old female who presented to [facility] with complaint of abdominal pain. Patient's work up including CT abdomen and pelvis showed perforated diverticulitis. Subsequently , the patient underwent exploratory laparotomy, sigmoid resection, and colostomy. Patient's hospital course was complicated by sepsis, acute renal insufficiency, and respiratory failure. Patient was reintubated and has failed multiple attempts of weaning process from the ventilator support. The patient is undergoing the aforementioned procedure for prolonged ventilator support. The risks, benefits, alternative plans, and potential complications including, but not limited to, infection, bleeding, recurrence of disease, injury to other organs, pneumothorax, re-intervention, tracheal stenosis, tracheoinnominate fistula, CVA, stroke, cardiac compromise requiring vasopressors, renal failure requiring hemodialysis, respiratory failure, ventilator support, and were discussed with the patient and her family in extensive detail, and they agreed to proceed with the surgical intervention. Dr. Jeremias Garcia was the co-surgeon. DESCRIPTION OF PROCEDURE: The patient was laid in supine position in the ICU. Patient was induced via existing endotracheal tube. Dr. Garcia performed a flexible bronchoscopy. Patient was found to have moderate amount of mucus in the airway. Using copious amount of normal saline, the entire airway was irrigated and suctioned out. After thorough irrigation, the main terri, right main stem bronchus, right upper lobe, bronchus intermedius, right middle lobe, right lower lobe, segmental and subsegmental airway were patent with no endobronchial lesions or mucous plug. The left main stem bronchus, left upper lobe, lingula, left lower lobe, segmental, and subsegmental airway were patent with no endobronchial lesions or mucous plug. Next, attention was turned to percutaneous tracheostomy tube placement. Using # 15 blade, a 1-cm skin incision was made 1 fingerbreadth above the sternal notch. The strap muscle was dissected to the level of the trachea. Using Seldinger technique, the Angiocath needle and the guidewire was inserted to the airway with direct visualization of the bronchoscope. A serial dilation of the trachea was performed with tracheal dilator. A #8 Shiley tracheostomy tube (cuffed) was placed in the trachea with no complication. The tracheostomy tube flange was sutured to the skin. A flexible bronchoscopy was repeated and confirmed the position of the tracheostomy tube and complete hemostasis at the end of the case. Sterile dressing was placed over the incision and tracheostomy tube site. The patient tolerated the procedure well with no complication. I, Dr. Peewee Solomon, was present for the entire surgical procedure. Tennille [id number] MTDD
--- NOTE | 2017-02-05 13:54 | PROC ---
Procedure Note Procedure: BRONCHOSCOPY NOTE After discussing the risks and benefits of the procedure, informed consent was obtained. Storz video bronchoscope was passed via the ETT and the airways were examined down to the subsegmental level. There were few mucous plugs scattered in the airways that were easily lavaged with saline. The trachea was then visualized as the surgeon placed a percutaneous tracheostomy. Bronchoscope then was passed via the new tracheostomy confirming placement, no active bleeding noted. Bronchoscope then withdrawn. No immediate complications. Jeremias Garcia MD
--- NOTE | 2017-02-05 13:56 | PN ---
Teaching Attending Note Name of Resident: Erika Higuera ATTENDING PHYSICIAN STATEMENT I saw and evaluated the patient. I reviewed the resident's note and discussed the case with the resident. I agree with the resident's findings and plan as documented. SUBJECTIVE: Pt seen and examined in the ICU. s/p percutaneous tracheostomy without complications. Remains vented on dobutamine and lasix gtts. OBJECTIVE: Last Vital Signs Temp Pulse Resp BP Pulse Ox 98 F 84 20 108/64 100 02/05/17 12:08 02/05/17 12:08 02/05/17 12:42 02/05/17 12:08 02/05/17 12:08 Intake & Output 02/02/17 02/03/17 02/04/17 02/05/17 23:59 23:59 23:59 23:59 Intake Total 3047.9 3483.2 1963 827.1 Output Total 2995 2315 800 850 Balance 52.9 1168.2 1163 -22.9 Weight 288 lb 12.889 oz 288 lb 2.307 oz 295 lb 3.183 oz Gen: intubated, sedated Heart: RRR Lung: bilateral rhonchi Abd: soft, JAMES drain with purulent drainage Ext: + edema CBC, BMP 02/05/17 06:05 02/05/17 06:05 Active Medications Acetaminophen (Ofirmev Injection -) 1,000 mg IVPB Q6H PRN PRN Reason: FEVER Last Admin: 01/24/17 16:32 Dose: 1,000 mg Albuterol/Ipratropium (Duoneb -) 1 amp NEB QIDR [facility] Last Admin: 02/05/17 05:59 Dose: 1 amp Bacitracin (Bacitracin -) 1 applic TP BID [facility] Last Admin: 02/05/17 09:25 Dose: 1 applic Chlorhexidine Gluconate (Hibiclens For Decolonization -) 1 applic TP HS [facility] Last Admin: 02/04/17 21:24 Dose: 1 applic Collagenase (Santyl -) 1 applic TP BID [facility] Last Admin: 02/05/17 09:24 Dose: 1 applic Fentanyl Citrate (Fentanyl 1,000 Mcg/20 Ml Ampul) 50 mcg IVPUSH ONCE ONE Stop: 02/05/17 11:46 Heparin Sodium (Porcine) (Heparin -) 1,000 unit IVPUSH PRN PRN PRN Reason: Heparin Last Admin: 01/28/17 09:19 Dose: 1,000 unit Heparin Sodium (Porcine) (Heparin -) 5,000 unit IVPUSH PRN PRN PRN Reason: Heparin Last Admin: 01/17/17 07:41 Dose: 5,000 unit Heparin Sodium (Porcine) (Heparin -) 1,000 unit IVPUSH PRN PRN PRN Reason: Heparin Heparin Sodium (Porcine) (Heparin -) 5,000 unit IVPUSH PRN PRN PRN Reason: Heparin Famotidine/Sodium Chloride (Pepcid 20 Mg Premixed Ivpb -) 50 mls @ 100 mls/hr IVPB BID [facility] Last Admin: 02/05/17 09:23 Dose: 100 mls/hr Fluconazole (Diflucan 200 Mg/D5w Premixed Ivpb -) 100 mls @ 100 mls/hr IVPB DAILY [facility] Last Admin: 02/05/17 09:23 Dose: 100 mls/hr Heparin Sodium/Dextrose (Heparin Infusion -) 500 mls @ 20 mls/hr IVPB TITR [facility] ; 1,000 UNITS/HR PRN Reason: Protocol Last Admin: 02/04/17 21:17 Dose: 27 mls/hr Meropenem 1 gm/ Dextrose 100 mls @ 100 mls/hr IVPB BID@0500,1700 [facility] PRN Reason: Protocol Last Admin: 02/05/17 07:00 Dose: 100 mls/hr Propofol (Diprivan -) 100 mls @ 3.486 mls/hr IVPB TITR [facility]; 5 MCG/KG/MIN PRN Reason: Protocol Last Admin: 02/05/17 11:04 Dose: 8.366 mls/hr Dobutamine HCl 250,000 mcg/ (Sodium Chloride) 250 mls @ 37.59 mls/hr IV TITR [facility]; 5 MCG/KG/MIN PRN Reason: Protocol Last Admin: 02/05/17 11:05 Dose: 37.59 mls/hr Furosemide 100 mg/ Sodium (Chloride) 50 mls @ 10 mls/hr IVPB TITR [facility] PRN Reason: 20 MG/HR Last Admin: 02/05/17 11:05 Dose: 10 mls/hr Heparin Sodium (Porcine) 25, (000 unit/ Sodium Chloride) 500 mls @ 20 mls/hr IV TITR [facility]; 1,000 UNIT/HR PRN Reason: Protocol Metoprolol Tartrate (Lopressor Injection -) 5 mg IVPB Q8H-IV [facility] Last Admin: 02/05/17 09:24 Dose: 5 mg Rocuronium [place] (Zemuron -) 80 mg IV ONCE ONE Stop: 02/05/17 11:46 Last Admin: 02/05/17 12:02 Dose: 80 mg Sevelamer Carbonate (Renvela Powder Packet -) 1.6 gm NGT TIDCM [facility] ASSESSMENT AND PLAN: Acute Hypoxic Respiratory Failure Perforated Diverticulitis s/p Sigmoid Resection/Colostomy 01/09 Intra-abdominal Abscess Acute on Chronic Systolic Heart Failure Acute Kidney Injury Volume Overload h/o DVT/PE Atrial Fibrillation Hyponatremia - continue antibiotics - monitor drain output - surgery f/u - continue dobutamine gtt - lasix gtt - monitor urine output, creatinine - taper FiO2, PEEP to keep SpO2 >90% - continue anticoagulation - continue discussions regarding goals of care and advanced directives - hold sedation in AM to assess mental status - spontaneous breathing trials as tolerated when mental status improved - continue ICU monitoring - poor prognosis critical care time spent in reviewing chart, evaluating patient and formulating plan 38 min
--- NOTE | 2017-02-05 16:52 | PN ---
Progress Note, Physician History of Present Illness: patient s wound is debrided trach done sedated on vent still on lasix drip - Current Medication List Current Medications: Active Medications Acetaminophen (Ofirmev Injection -) 1,000 mg IVPB Q6H PRN PRN Reason: FEVER Last Admin: 01/24/17 16:32 Dose: 1,000 mg Albuterol/Ipratropium (Duoneb -) 1 amp NEB QIDR [facility] Last Admin: 02/05/17 05:59 Dose: 1 amp Bacitracin (Bacitracin -) 1 applic TP BID [facility] Last Admin: 02/05/17 09:25 Dose: 1 applic Chlorhexidine Gluconate (Hibiclens For Decolonization -) 1 applic TP HS [facility] Last Admin: 02/04/17 21:24 Dose: 1 applic Collagenase (Santyl -) 1 applic TP BID [facility] Last Admin: 02/05/17 09:24 Dose: 1 applic Heparin Sodium (Porcine) (Heparin -) 1,000 unit IVPUSH PRN PRN PRN Reason: Heparin Last Admin: 01/28/17 09:19 Dose: 1,000 unit Heparin Sodium (Porcine) (Heparin -) 5,000 unit IVPUSH PRN PRN PRN Reason: Heparin Last Admin: 01/17/17 07:41 Dose: 5,000 unit Heparin Sodium (Porcine) (Heparin -) 1,000 unit IVPUSH PRN PRN PRN Reason: Heparin Heparin Sodium (Porcine) (Heparin -) 5,000 unit IVPUSH PRN PRN PRN Reason: Heparin Famotidine/Sodium Chloride (Pepcid 20 Mg Premixed Ivpb -) 50 mls @ 100 mls/hr IVPB BID [facility] Last Admin: 02/05/17 09:23 Dose: 100 mls/hr Fluconazole (Diflucan 200 Mg/D5w Premixed Ivpb -) 100 mls @ 100 mls/hr IVPB DAILY [facility] Last Admin: 02/05/17 09:23 Dose: 100 mls/hr Heparin Sodium/Dextrose (Heparin Infusion -) 500 mls @ 20 mls/hr IVPB TITR [facility] ; 1,000 UNITS/HR PRN Reason: Protocol Last Admin: 02/04/17 21:17 Dose: 27 mls/hr Meropenem 1 gm/ Dextrose 100 mls @ 100 mls/hr IVPB BID@0500,1700 [facility] PRN Reason: Protocol Last Admin: 02/05/17 07:00 Dose: 100 mls/hr Propofol (Diprivan -) 100 mls @ 3.486 mls/hr IVPB TITR [facility]; 5 MCG/KG/MIN PRN Reason: Protocol Last Admin: 02/05/17 11:04 Dose: 8.366 mls/hr Dobutamine HCl 250,000 mcg/ (Sodium Chloride) 250 mls @ 37.59 mls/hr IV TITR [facility]; 5 MCG/KG/MIN PRN Reason: Protocol Last Admin: 02/05/17 11:05 Dose: 37.59 mls/hr Furosemide 100 mg/ Sodium (Chloride) 50 mls @ 10 mls/hr IVPB TITR [facility] PRN Reason: 20 MG/HR Last Admin: 02/05/17 11:05 Dose: 10 mls/hr Heparin Sodium (Porcine) 25, (000 unit/ Sodium Chloride) 500 mls @ 20 mls/hr IV TITR [facility]; 1,000 UNIT/HR PRN Reason: Protocol Metoprolol Tartrate (Lopressor Injection -) 5 mg IVPB Q8H-IV [facility] Last Admin: 02/05/17 09:24 Dose: 5 mg Sevelamer Carbonate (Renvela Powder Packet -) 1.6 gm NGT TIDCM [facility] - Objective Vital Signs: Vital Signs Temperature 98 F 02/05/17 13:00 Pulse Rate 96 H 02/05/17 14:00 Respiratory Rate 17 02/05/17 14:00 Blood Pressure 110/60 02/05/17 14:00 O2 Sat by Pulse Oximetry (%) 100 02/05/17 12:08 Constitutional: Yes: Other Neck: Yes: Other (trach done) Cardiovascular: Yes: Pulse Irregular Respiratory: Yes: Mechanically Ventilated, Other Gastrointestinal: Yes: Soft, Other (draiange tube in place decrease drain) Musculoskeletal: Yes: WNL Edema: LLE: Trace, RLE: Trace Wound/Incision: Yes: Dressing Dry and Intact Neurological: Yes: Other Psychiatric: Yes: Other Labs: CBC, BMP 02/05/17 06:05 02/05/17 06:05 INR, PTT INR 1.12 (0.82-1.09) 02/05/17 06:05 Assessment/Plan 81 y/o old with multiple medical problems with perforated bowel post op Perforated bowel Peritonitis Sepsis s/p ex-lap with sigmoid resection, colostomy Resolving JG Lactic acidosis AF h/o DVT/PE septic shock plan continue current management rest continue abx nutrition monitor wbc wound debridement done trach in place cc tim40 min
[2017-02-05] MEDS: HEPARIN INFUSION - 500 ML IVPB SCH (17:17)
--- NOTE | 2017-02-05 17:32 | PN ---
Progress Note (short form) - Note Progress Note: Attending Surgeon POD # 27 In ICU on vent; to have trach today VSS AFF abdomen-no gross change; JAMES drainage less WBC 16 IMP: s/p perforated sigmoid diverticulitis w/ abscess formation PLAN: After informed consent today wound sharply debrided of non viable skin and subcutaneous fat and fascia superficially; tolerated well; wound was packed w/ saline soaked Kerlix. Continue present tx.
[2017-02-05] MEDS: HEPARIN - 25,000 UNIT in SODIUM CHLORIDE 495 ML IV SCH (18:46)
[2017-02-05 19:35] LABS: ANION GAP 17 (8-16); CALCIUM 7.1 mg/dL (8.5-10.1); CO2 20 mmol/L (21-32); CREATININE 3.5 mg/dL (0.55-1.02); GLUCOSE,RANDOM 81 mg/dL (74-106)
[2017-02-05 20:07] LABS: PHOSPHOROUS 8.8 mg/dL (2.5-4.9)
[2017-02-05] MEDS: CHLORHEXIDINE GLUCONATE 4% CLEANSER FOR DECOLONIZATION TP SCH (21:18)
[2017-02-06] MEDS ORDERED: DOBUTAMINE 250 MG/D5W - 250 ML ONE ×5 (00:45→21:07)
[2017-02-06] MEDS ORDERED: FUROSEMIDE 100 MG/10 ML INJECTABLE VIAL ONE ×4 (01:17→21:07)
[2017-02-06] MEDS: METOPROLOL TARTRATE 5 MG/5 ML VIAL IVPB SCH ×3 (01:42→17:33)
[2017-02-06] MEDS: ALBUTEROL SO4 2.5/IPRATROPIUM 0.5 INH SOL 3 ML VIAL.NEB. NEB SCH ×3 (05:26→18:35)
[2017-02-06] MEDS ORDERED: PT OWN MED DRAWER 7, Y5N ONE ×4 (05:59→21:08)
[2017-02-06] MEDS: MEROPENEM 1 GM in DEXTROSE 5%-WATER - 100 ML IVPB SCH ×2 (06:07→17:33)
[2017-02-06 06:14] LABS: MCH 32.1 pg (25.7-33.7); MCHC 33.9 g/dl (32.0-36.0); MEAN CELL VOLUME 94.7 fl (80-96); MEAN PLT VOLUME 9.1 fl (7.5-11.1); PLATELET COUNT 364 K/MM3 (134-434); RDW 15.7 % (11.6-15.6); WHITE BLOOD COUNT 17.2 K/mm3 (4.0-10.0)
[2017-02-06 06:56] LABS: ALBUMIN 1.2 g/dl (3.4-5.0); ALK PHOS 101 U/L (45-117); ANION GAP 13 (8-16); BILIRUBIN,TOTAL 0.3 mg/dL (0.2-1.0); CALCIUM 7.2 mg/dL (8.5-10.1); CO2 23 mmol/L (21-32); CREATININE 3.5 mg/dL (0.55-1.02); GLUCOSE,RANDOM 65 mg/dL (74-106); MAGNESIUM 2.2 mg/dL (1.8-2.4); SGOT/AST 16 U/L (15-37); SGPT/ALT 6 U/L (12-78); TOT PROT 4.6 g/dl (6.4-8.2)
[2017-02-06 07:34] LABS: PHOSPHOROUS 8.8 mg/dL (2.5-4.9)
[2017-02-06] MEDS: PROPOFOL 100 ML IVPB SCH ×2 (08:00→22:00)
[2017-02-06] MEDS: SEVELAMER CARBONATE 0.8 GM POWDER PACKET NGT SCH ×3 (08:55→17:34)
[2017-02-06] MEDS: BACITRACIN 15 GM TUBE TOPICAL OINTMENT TP SCH ×2 (09:39→21:17)
[2017-02-06] MEDS: FAMOTIDINE 20 MG/50 ML IVPB 50 ML IVPB SCH ×2 (09:40→21:17)
[2017-02-06] MEDS: FLUCONAZOLE 200 MG/D5W 100 ML IVPB SCH (09:40)
[2017-02-06] MEDS: COLLAGENASE CLOSTRIDIUM HIST. 30 GRAMS TUBE TP SCH ×2 (09:41→21:19)
--- NOTE | 2017-02-06 09:42 | PN ---
Progress Note (short form) - Note Progress Note: seen and examined. no major event o/n. sedated, on pressor and vent supp. afeb. afib. b/l rhonchi. trach intact. open abd wound, nt, nd, +ostomy. anamaria intact. +edema. no c/c. CBC, BMP 02/06/17 05:20 02/06/17 05:20 Vital Signs Period Temp Pulse Resp BP Sys/Riley Pulse Ox Last 24 Hr 97 F-98 F 84-104 14-22 91-126/46-80 98-100 Vital Signs (72 hours) 02/03/17 02/03/17 02/03/17 09:40 10:00 11:18 Temperature 98.3 F Pulse Rate 97 H 98 H Respiratory 23 22 Rate Blood Pressure 117/62 117/82 O2 Sat by Pulse 95 Oximetry (%) 02/03/17 02/03/17 02/03/17 12:00 12:12 14:00 Temperature Pulse Rate 101 H 93 H Respiratory 16 22 18 Rate Blood Pressure 121/63 117/63 O2 Sat by Pulse Oximetry (%) 02/03/17 02/03/17 02/03/17 14:20 15:21 16:00 Temperature 98 F Pulse Rate 95 H 92 H Respiratory 18 14 Rate Blood Pressure 119/57 117/57 O2 Sat by Pulse Oximetry (%) 02/03/17 02/03/17 02/03/17 16:20 18:00 18:42 Temperature Pulse Rate 91 H Respiratory 20 15 20 Rate Blood Pressure 112/54 O2 Sat by Pulse Oximetry (%) 02/03/17 02/03/17 02/03/17 18:55 20:00 20:46 Temperature 97.5 F L Pulse Rate 97 H 92 H Respiratory 18 19 Rate Blood Pressure 104/71 114/53 O2 Sat by Pulse 93 L Oximetry (%) 02/03/17 02/03/17 02/03/17 20:53 21:02 22:00 Temperature 98 F Pulse Rate 97 H Respiratory 20 20 Rate Blood Pressure 105/63 O2 Sat by Pulse 93 L Oximetry (%) 02/03/17 02/04/17 02/04/17 23:51 00:00 01:01 Temperature 98 F Pulse Rate 99 H 100 H Respiratory 19 13 Rate Blood Pressure 99/45 99/45 O2 Sat by Pulse Oximetry (%) 02/04/17 02/04/17 02/04/17 07:29 09:00 10:02 Temperature Pulse Rate 108 H Respiratory 18 21 Rate Blood Pressure 109/62 O2 Sat by Pulse 96 Oximetry (%) 02/04/17 02/04/17 02/04/17 10:05 10:07 10:25 Temperature Pulse Rate 108 H 106 H Respiratory 22 20 Rate Blood Pressure 108/62 109/62 O2 Sat by Pulse Oximetry (%) 02/04/17 02/04/17 02/04/17 11:55 12:00 12:15 Temperature Pulse Rate 105 H 92 H Respiratory 17 14 Rate Blood Pressure 116/45 97/60 O2 Sat by Pulse Oximetry (%) 02/04/17 02/04/17 02/04/17 14:00 14:40 16:00 Temperature 98.5 F 98.8 F Pulse Rate 98 H 106 H Respiratory 21 21 20 Rate Blood Pressure 106/64 122/50 O2 Sat by Pulse Oximetry (%) 02/04/17 02/04/17 02/04/17 16:27 17:53 18:00 Temperature Pulse Rate 106 H 105 H Respiratory 21 20 Rate Blood Pressure 115/53 111/64 O2 Sat by Pulse Oximetry (%) 02/04/17 02/04/17 02/04/17 18:31 20:00 20:10 Temperature Pulse Rate 106 H Respiratory 20 18 Rate Blood Pressure 111/54 O2 Sat by Pulse 98 Oximetry (%) 02/04/17 02/04/17 02/04/17 20:17 20:27 22:00 Temperature Pulse Rate 95 H Respiratory 18 19 20 Rate Blood Pressure 109/64 O2 Sat by Pulse 98 Oximetry (%) 02/04/17 02/05/17 02/05/17 23:44 00:00 00:18 Temperature Pulse Rate 106 H Respiratory 20 20 Rate Blood Pressure 109/64 O2 Sat by Pulse 94 L Oximetry (%) 02/05/17 02/05/17 02/05/17 02:00 02:20 02:51 Temperature 99.5 F Pulse Rate 100 H 104 H Respiratory 22 20 Rate Blood Pressure 105/61 105/61 O2 Sat by Pulse Oximetry (%) 02/05/17 02/05/17 02/05/17 04:00 04:20 06:00 Temperature 98.0 F Pulse Rate 93 H 96 H Respiratory 22 18 24 Rate Blood Pressure 101/53 101/49 O2 Sat by Pulse Oximetry (%) 02/05/17 02/05/17 02/05/17 06:53 08:00 09:00 Temperature Pulse Rate 98 H Respiratory 15 22 20 Rate Blood Pressure 104/59 O2 Sat by Pulse 98 Oximetry (%) 02/05/17 02/05/17 02/05/17 09:24 10:00 10:05 Temperature 97.8 F Pulse Rate 94 H 90 Respiratory 20 17 Rate Blood Pressure 110/68 101/53 O2 Sat by Pulse Oximetry (%) 02/05/17 02/05/17 02/05/17 11:05 12:00 12:08 Temperature 98 F Pulse Rate 90 94 H 84 Respiratory 20 22 Rate Blood Pressure 101/53 108/64 108/64 O2 Sat by Pulse 100 Oximetry (%) 02/05/17 02/05/17 02/05/17 12:15 12:30 12:42 Temperature 97.6 F Pulse Rate 98 H 93 H Respiratory 18 18 20 Rate Blood Pressure 116/58 112/53 O2 Sat by Pulse Oximetry (%) 02/05/17 02/05/17 02/05/17 12:45 13:00 14:00 Temperature 97.8 F 98 F Pulse Rate 98 H 92 H 96 H Respiratory 22 20 17 Rate Blood Pressure 123/53 113/47 110/60 O2 Sat by Pulse Oximetry (%) 02/05/17 02/05/17 02/05/17 16:00 17:11 17:20 Temperature Pulse Rate 98 H 98 H Respiratory 22 17 Rate Blood Pressure 118/80 113/50 O2 Sat by Pulse Oximetry (%) 02/05/17 02/05/17 02/05/17 18:00 19:55 20:00 Temperature 97.2 F L Pulse Rate 92 H 97 H Respiratory 18 17 Rate Blood Pressure 126/70 95/46 O2 Sat by Pulse 98 Oximetry (%) 02/05/17 02/05/17 02/05/17 20:32 22:00 22:33 Temperature 97.5 F L Pulse Rate 104 H Respiratory 20 22 22 Rate Blood Pressure 91/57 O2 Sat by Pulse Oximetry (%) 02/05/17 02/06/17 02/06/17 23:51 00:00 00:44 Temperature Pulse Rate 96 H Respiratory 18 18 Rate Blood Pressure 104/54 O2 Sat by Pulse 99 Oximetry (%) 02/06/17 02/06/17 02/06/17 01:42 02:00 02:43 Temperature Pulse Rate 101 H 91 H Respiratory 14 18 Rate Blood Pressure 104/51 98/56 O2 Sat by Pulse Oximetry (%) 02/06/17 02/06/17 02/06/17 04:00 05:25 06:00 Temperature Pulse Rate 90 91 H Respiratory 14 20 17 Rate Blood Pressure 103/52 98/50 O2 Sat by Pulse Oximetry (%) 02/06/17 08:00 Temperature 97 F L Pulse Rate 90 Respiratory 14 Rate Blood Pressure 92/67 O2 Sat by Pulse Oximetry (%) a/p 81 yo, f, perf diverticulitis, s/p ex lap, sigmoid resection, colostomy, c/ b sepsis, resp failure. pod #1, s/p trach. on pressor and vent supp. 1. cont icu supp care 2. wean vent as howard 3. dc trach suture on pod #7 4. will follow
--- NOTE | 2017-02-06 11:21 | PN ---
Progress Note (short form) - Note Progress Note: Renal Follow up for JG Pt seen and examined in the ICU off sedation, awakes to physical stimuli on Vent 50% FiO2 on dobutamine 5mcg, Lasix 20mg/Hr remains net positive Vital Signs Temperature 97 F L 02/06/17 08:00 Pulse Rate 90 02/06/17 09:40 Respiratory Rate 23 02/06/17 10:51 Blood Pressure 92/47 02/06/17 09:40 O2 Sat by Pulse Oximetry (%) 95 02/06/17 10:00 Intake & Output 02/03/17 02/04/17 02/05/17 02/06/17 23:59 23:59 23:59 23:59 Intake Total 3483.2 1963 1875.6 872.2 Output Total 2315 800 1425 200 Balance 1168.2 1163 450.6 672.2 Weight 288 lb 2.307 oz 295 lb 3.183 oz 291 lb 3.69 oz Gen: intubated on vent CVS: RRR Lungs: Dec BS throughout the lung dimas Abd: soft NT/ND Ext: 2+ edema upper ext and lower ext CBC, BMP 02/06/17 05:20 02/06/17 05:20 Laboratory Tests 02/06/17 05:20 Calcium 7.2 L Phosphorus 8.8 H Magnesium 2.2 Albumin 1.2 L Current Medications Acetaminophen (Ofirmev Injection -) 1,000 mg IVPB Q6H PRN PRN Reason: FEVER Last Admin: 01/24/17 16:32 Dose: 1,000 mg Albumin Human (Albumin Human 25%) 12.5 gm IVPB Q30M [facility] Albuterol/Ipratropium (Duoneb -) 1 amp NEB QIDR [facility] Last Admin: 02/06/17 11:10 Dose: 1 amp Bacitracin (Bacitracin -) 1 applic TP BID [facility] Last Admin: 02/06/17 09:39 Dose: 1 applic Chlorhexidine Gluconate (Hibiclens For Decolonization -) 1 applic TP HS [facility] Last Admin: 02/05/17 21:18 Dose: 1 applic Collagenase (Santyl -) 1 applic TP BID [facility] Last Admin: 02/06/17 09:41 Dose: 1 applic Heparin Sodium (Porcine) (Heparin -) 1,000 unit IVPUSH PRN PRN PRN Reason: Heparin Last Admin: 01/28/17 09:19 Dose: 1,000 unit Heparin Sodium (Porcine) (Heparin -) 5,000 unit IVPUSH PRN PRN PRN Reason: Heparin Last Admin: 01/17/17 07:41 Dose: 5,000 unit Heparin Sodium (Porcine) (Heparin -) 1,000 unit IVPUSH PRN PRN PRN Reason: Heparin Heparin Sodium (Porcine) (Heparin -) 5,000 unit IVPUSH PRN PRN PRN Reason: Heparin Famotidine/Sodium Chloride (Pepcid 20 Mg Premixed Ivpb -) 50 mls @ 100 mls/hr IVPB BID [facility] Last Admin: 02/06/17 09:40 Dose: 100 mls/hr Fluconazole (Diflucan 200 Mg/D5w Premixed Ivpb -) 100 mls @ 100 mls/hr IVPB DAILY [facility] Last Admin: 02/06/17 09:40 Dose: 100 mls/hr Heparin Sodium/Dextrose (Heparin Infusion -) 500 mls @ 20 mls/hr IVPB TITR [facility] ; 1,000 UNITS/HR PRN Reason: Protocol Last Admin: 02/05/17 17:17 Dose: Not Given Meropenem 1 gm/ Dextrose 100 mls @ 100 mls/hr IVPB BID@0500,1700 DAVID PRN Reason: Protocol Last Admin: 02/06/17 06:07 Dose: 100 mls/hr Propofol (Diprivan -) 100 mls @ 3.486 mls/hr IVPB TITR [facility]; 5 MCG/KG/MIN PRN Reason: Protocol Last Admin: 02/06/17 08:00 Dose: 8.366 mls/hr Dobutamine HCl 250,000 mcg/ (Sodium Chloride) 250 mls @ 37.59 mls/hr IV TITR [facility]; 5 MCG/KG/MIN PRN Reason: Protocol Last Admin: 02/05/17 17:11 Dose: 37.59 mls/hr Furosemide 100 mg/ Sodium (Chloride) 50 mls @ 10 mls/hr IVPB TITR [facility] PRN Reason: 20 MG/HR Last Admin: 02/05/17 11:05 Dose: 10 mls/hr Heparin Sodium (Porcine) 25, (000 unit/ Sodium Chloride) 500 mls @ 20 mls/hr IV TITR [facility]; 1,000 UNIT/HR PRN Reason: Protocol Last Admin: 02/05/17 18:46 Dose: 20 mls/hr Metoprolol Tartrate (Lopressor Injection -) 5 mg IVPB Q8H-IV [facility] Last Admin: 02/06/17 09:40 Dose: Not Given Sevelamer Carbonate (Renvela Powder Packet -) 1.6 gm NGT TIDCM [facility] Last Admin: 02/06/17 08:55 Dose: 1.6 gm A/P 81 year old woman with PMhx of CKD? (Atrophic Kidney seen on US which is a chronic finding), Diverticulosis, DVT/PE on Warfarin, Hypertension who presented with Abd pain and found to have perforated bowel with diverticulitis s /p bowel resection with colostomy with JG with Cr of 2. #Non-oliguric acute kidney failure with total body volume overload and respiratory failure Renal function stable, pt with good urine output but unable to acheive any meaningful diuresis with diuretics alone pt will need NAILHEAD OPERATOR for refractory volume overload will plan 1st HD today with goal UF of 1-1.5L Consent obtained from daughter Jyotsna Lopez, she understands that she is at higher risk and may not tolerate NAILHEAD OPERATOR given poor ejection fraction Continue IV diuretics Keep MAP > 65 (taper vasopressers as needed) #Hyponatremia secondary to total body volume overload in setting of HF and JG expect improvement with UF/NAILHEAD OPERATOR #Sepsis/Shock/Perforated Abd viscus Continue ICU care Prognosis guarded Jair Medley DO Problem List - Problems (1) Perforated bowel Code(s): K63.1 - PERFORATION OF INTESTINE (NONTRAUMATIC) (2) Sepsis Code(s): A41.9 - SEPSIS, UNSPECIFIED ORGANISM Qualifiers: Qualified Code(s): A41.9 - Sepsis, unspecified organism (3) Acute renal failure (ARF) Code(s): N17.9 - ACUTE KIDNEY FAILURE, UNSPECIFIED (4) CKD (chronic kidney disease) Code(s): N18.9 - CHRONIC KIDNEY DISEASE, UNSPECIFIED (5) Hypertension Code(s): I10 - ESSENTIAL (PRIMARY) HYPERTENSION (6) Diverticulosis Code(s): K57.90 - DVRTCLOS OF INTEST, PART UNSP, W/O PERF OR ABSCESS W/O BLEED
[2017-02-06] MEDS ORDERED: LIDOCAINE HCL/PF 2% SDV 5ML VIAL ONE (11:59)
--- NOTE | 2017-02-06 12:01 | PN ---
Teaching Attending Note Name of Resident: Edgardo Ribeiro ATTENDING PHYSICIAN STATEMENT I saw and evaluated the patient. I reviewed the resident's note and discussed the case with the resident. I agree with the resident's findings and plan as documented. SUBJECTIVE: Pt seen and examined in the ICU. s/p bedside tracheostomy and wound debridement. Remains in positive fluid balance despite dobutamine and lasix gtts. OBJECTIVE: Last Vital Signs Temp Pulse Resp BP Pulse Ox 97 F L 90 22 92/47 95 02/06/17 08:00 02/06/17 09:40 02/06/17 11:47 02/06/17 09:40 02/06/17 10:00 Intake & Output 02/03/17 02/04/17 02/05/17 02/06/17 23:59 23:59 23:59 23:59 Intake Total 3483.2 1963 1875.6 872.2 Output Total 2315 800 1425 200 Balance 1168.2 1163 450.6 672.2 Weight 288 lb 2.307 oz 295 lb 3.183 oz 291 lb 3.69 oz Gen: vented, sedated Heart: RRR Lung: bilateral rhonchi Abd: soft, nontender Ext: + edema CBC, BMP 02/06/17 05:20 02/06/17 05:20 Active Medications Acetaminophen (Ofirmev Injection -) 1,000 mg IVPB Q6H PRN PRN Reason: FEVER Last Admin: 01/24/17 16:32 Dose: 1,000 mg Albumin Human (Albumin Human 25%) 12.5 gm IVPB Q30M [facility] Albuterol/Ipratropium (Duoneb -) 1 amp NEB QIDR [facility] Last Admin: 02/06/17 11:10 Dose: 1 amp Bacitracin (Bacitracin -) 1 applic TP BID [facility] Last Admin: 02/06/17 09:39 Dose: 1 applic Chlorhexidine Gluconate (Hibiclens For Decolonization -) 1 applic TP HS [facility] Last Admin: 02/05/17 21:18 Dose: 1 applic Collagenase (Santyl -) 1 applic TP BID [facility] Last Admin: 02/06/17 09:41 Dose: 1 applic Heparin Sodium (Porcine) (Heparin -) 1,000 unit IVPUSH PRN PRN PRN Reason: Heparin Last Admin: 01/28/17 09:19 Dose: 1,000 unit Heparin Sodium (Porcine) (Heparin -) 5,000 unit IVPUSH PRN PRN PRN Reason: Heparin Last Admin: 01/17/17 07:41 Dose: 5,000 unit Heparin Sodium (Porcine) (Heparin -) 1,000 unit IVPUSH PRN PRN PRN Reason: Heparin Heparin Sodium (Porcine) (Heparin -) 5,000 unit IVPUSH PRN PRN PRN Reason: Heparin Famotidine/Sodium Chloride (Pepcid 20 Mg Premixed Ivpb -) 50 mls @ 100 mls/hr IVPB BID [facility] Last Admin: 02/06/17 09:40 Dose: 100 mls/hr Fluconazole (Diflucan 200 Mg/D5w Premixed Ivpb -) 100 mls @ 100 mls/hr IVPB DAILY [facility] Last Admin: 02/06/17 09:40 Dose: 100 mls/hr Heparin Sodium/Dextrose (Heparin Infusion -) 500 mls @ 20 mls/hr IVPB TITR [facility] ; 1,000 UNITS/HR PRN Reason: Protocol Last Admin: 02/05/17 17:17 Dose: Not Given Meropenem 1 gm/ Dextrose 100 mls @ 100 mls/hr IVPB BID@0500,1700 [facility] PRN Reason: Protocol Last Admin: 02/06/17 06:07 Dose: 100 mls/hr Propofol (Diprivan -) 100 mls @ 3.486 mls/hr IVPB TITR [facility]; 5 MCG/KG/MIN PRN Reason: Protocol Last Admin: 02/06/17 08:00 Dose: 8.366 mls/hr Dobutamine HCl 250,000 mcg/ (Sodium Chloride) 250 mls @ 37.59 mls/hr IV TITR [facility]; 5 MCG/KG/MIN PRN Reason: Protocol Last Admin: 02/05/17 17:11 Dose: 37.59 mls/hr Furosemide 100 mg/ Sodium (Chloride) 50 mls @ 10 mls/hr IVPB TITR [facility]DI PRN Reason: 20 MG/HR Last Admin: 02/05/17 11:05 Dose: 10 mls/hr Heparin Sodium (Porcine) 25, (000 unit/ Sodium Chloride) 500 mls @ 20 mls/hr IV TITR [facility]; 1,000 UNIT/HR PRN Reason: Protocol Last Admin: 02/05/17 18:46 Dose: 20 mls/hr Metoprolol Tartrate (Lopressor Injection -) 5 mg IVPB Q8H-IV [facility] Last Admin: 02/06/17 09:40 Dose: Not Given Sevelamer Carbonate (Renvela Powder Packet -) 1.6 gm NGT TIDCM [facility] Last Admin: 02/06/17 08:55 Dose: 1.6 gm ASSESSMENT AND PLAN: Acute Hypoxic Respiratory Failure Perforated Diverticulitis s/p Sigmoid Resection/Colostomy 01/09 Intra-abdominal Abscess Acute on Chronic Systolic Heart Failure Acute Kidney Injury Volume Overload h/o DVT/PE Atrial Fibrillation Hyponatremia - continue antibiotics - monitor drain output - continue dobutamine, lasix gtts - initiate HD per renal with ultrafiltration - monitor urine output, creatinine - taper FiO2, PEEP to keep SpO2 >90% - continue anticoagulation - continue discussions regarding goals of care and advanced directives - hold sedation in AM to assess mental status - spontaneous breathing trials as tolerated when mental status improved - continue ICU monitoring - poor prognosis critical care time spent in reviewing chart, evaluating patient and formulating plan 38 min
--- NOTE | 2017-02-06 13:15 | PROC ---
<Edgardo Ribeiro - Last Filed: 02/06/17 13:22> Central Line Insertion Indication: Other (dialysis ) Risks and Benefits Explained: Yes (to relative) Consent on Chart: Yes Central Line: Dialysis Cath, Dual Lumen Anesthesia: 1% Lidocaine Sterile Technique: Yes Ultrasound Guided Assistance: Yes Position: Left Internal Jugular Post Insertion: Yes: Chest X-Ray Ordered Sterile Dressing Applied: Yes <Jeremias Garcia MD - Last Filed: 02/06/17 14:03> Procedure Note Procedure: I supervised and was present during the entire procedure. Jeremias Garcia MD
[2017-02-06] MEDS: FUROSEMIDE INJECTION 100 MG in SODIUM CHLORIDE 40 ML IVPB SCH ×2 (13:40→21:20)
[2017-02-06] MEDS: DOBUTAMINE HCL 250,000 MCG in SODIUM CHLORIDE 230 ML IV SCH ×2 (13:41→22:00)
--- NOTE | 2017-02-06 14:31 | PN ---
Physical Exam: SUBJECTIVE: Patient seen and examined Patient intubated on vcv mode peep7 fio2 40, Patinet dobutamin drip, Lasix drip 20mg/hour Patient still in fluid overload. Discussed with tree killer, patient will get HD Dialysis catheter was inserted. Post line insertion CXR reviewed. OBJECTIVE: Vital Signs Period Temp Pulse Resp BP Sys/Riley Pulse Ox Last 24 Hr 97 F-97.5 F 90-104 11-23 91-126/46-80 95-99 GENERAL: The patient is sedated and intubated. HEAD: Normal with no signs of trauma. EYES: PERRL, No pallor or icterus. ENT: Ears normal, moist mucous membranes. NECK: Trach being placed. LUNGS: B/L decreased breath sounds equal, bibasilar crackles, HEART: Regular rate and rhythm, S1, S2 ABDOMEN: ostomy in situ has green color fecal matter, . 1 JAMES drain on the left side - thick brownish fluid ,Soft, mildly tender, nondistended, normoactive bowel sounds, no guarding, EXTREMITIES: 2+ pulses, warm, well-perfused, B/L peripheral pitting edema in the LE and Upper extremity. PSYCH: Normal mood, normal affect. SKIN: Warm, dry, Laboratory Results - last 24 hr 02/05/17 02/06/17 02/06/17 18:15 03:20 05:20 WBC 17.2 H RBC 2.67 L Hgb 8.6 L Hct 25.3 L MCV 94.7 MCH 32.1 MCHC 33.9 RDW 15.7 H Plt Count 364 MPV 9.1 PTT (Actin FS) 35.9 H Sodium 122 L* Potassium 4.1 Chloride 85 L Carbon Dioxide 20 L Anion Gap 17 H BUN 90 H Creatinine 3.5 H Creat Clearance w eGFR Random Glucose 81 Calcium 7.1 L Phosphorus 8.8 H Magnesium Total Bilirubin AST ALT Alkaline Phosphatase Total Protein Albumin 02/06/17 05:20 WBC RBC Hgb Hct MCV MCH MCHC RDW Plt Count MPV PTT (Actin FS) Sodium 122 L* Potassium 3.7 Chloride 86 L Carbon Dioxide 23 Anion Gap 13 BUN 89 H Creatinine 3.5 H Creat Clearance w eGFR 12.50 Random Glucose 65 L Calcium 7.2 L Phosphorus 8.8 H Magnesium 2.2 Total Bilirubin 0.3 D AST 16 D ALT 6 L Alkaline Phosphatase 101 Total Protein 4.6 L Albumin 1.2 L Active Medications Generic Name Dose Route Start Last Admin Trade Name Freq PRN Reason Stop Dose Admin Acetaminophen 1,000 mg 01/11/17 18:03 01/24/17 16:32 Ofirmev Injection - IVPB 1,000 mg Q6H PRN Administration FEVER Albuterol/Ipratropium 1 amp 01/11/17 00:00 02/06/17 11:10 Duoneb - NEB 1 amp QIDR DAVID Administration Bacitracin 1 applic 01/30/17 12:00 02/06/17 09:39 Bacitracin - TP 1 applic BID DAVID Administration Chlorhexidine Gluconate 1 applic 01/20/17 22:00 02/05/17 21:18 Hibiclens For Decolonization - TP 1 applic HS DAVID Administration Collagenase 1 applic 02/03/17 10:00 02/06/17 09:41 Santyl - TP 1 applic BID DAVID Administration Heparin Sodium (Porcine) 1,000 unit 01/12/17 16:52 01/28/17 09:19 Heparin - IVPUSH 1,000 unit PRN PRN Administration Heparin Heparin Sodium (Porcine) 5,000 unit 01/12/17 16:52 01/17/17 07:41 Heparin - IVPUSH 5,000 unit PRN PRN Administration Heparin Heparin Sodium (Porcine) 1,000 unit 02/05/17 13:41 Heparin - IVPUSH PRN PRN Heparin Heparin Sodium (Porcine) 5,000 unit 02/05/17 13:41 Heparin - IVPUSH PRN PRN Heparin Famotidine/Sodium Chloride 50 mls @ 100 mls/hr 01/10/17 10:00 02/06/17 09:40 Pepcid 20 Mg Premixed Ivpb - IVPB 100 mls/hr BID DAVID Administration Fluconazole 100 mls @ 100 mls/hr 01/11/17 13:00 02/06/17 09:40 Diflucan 200 Mg/D5w Premixed Ivpb - IVPB 100 mls/hr DAILY DAVID Administration Heparin Sodium/Dextrose 500 mls @ 20 mls/hr 01/12/17 17:00 02/05/17 17:17 Heparin Infusion - IVPB Not Given TITR DAVID Protocol 1,000 UNITS/HR Meropenem 1 gm/ Dextrose 100 mls @ 100 mls/hr 01/15/17 17:00 02/06/17 06:07 IVPB 100 mls/hr BID@0500,1700 DAVID Administration Protocol Propofol 100 mls @ 3.486 mls/hr 01/24/17 10:00 02/06/17 08:00 Diprivan - IVPB 8.366 mls/hr TITR DAVID Administration Protocol 5 MCG/KG/MIN Dobutamine HCl 250,000 mcg/ 250 mls @ 37.59 mls/hr 01/29/17 12:45 02/06/17 13: 41 Sodium Chloride IV 37.59 mls/hr TITR DAVID Administration Protocol 5 MCG/KG/MIN Furosemide 100 mg/ Sodium 50 mls @ 10 mls/hr 02/03/17 11:01 02/06/17 13:40 Chloride IVPB 10 mls/hr TITR DAVID Administration 20 MG/HR Heparin Sodium (Porcine) 25, 500 mls @ 20 mls/hr 02/05/17 19:00 02/05/17 18:46 000 unit/ Sodium Chloride IV 20 mls/hr TITR DAVID Administration Protocol 1,000 UNIT/HR Metoprolol Tartrate 5 mg 01/11/17 15:20 02/06/17 09:40 Lopressor Injection - IVPB Not Given Q8H-IV DAVID Sevelamer Carbonate 1.6 gm 02/05/17 17:30 02/06/17 12:36 Renvela Powder Packet - NGT 1.6 gm TIDCM DAVID Administration ASSESSMENT/PLAN: Patient is 81 year old female with a history of diverticulosis presents to the ED with perforated diverticulitis now post op day 5 s/p sigmoid resection with colostomy. # Acute hypoxic respiratory failure Intubated to protect the airways. On Dobutamine 5 and Propofol 12mcg/hr. Has been intubated since 01/20/17, Bronchoscopy ( Dr. Garcia. )and Tracheostomy completed by Dr. Solomon done on 02/05 on VCV mode, fio2 40, peep 7, TV 450 off sedation. Will get ABG tomorrow. # Anasarca with acute kidney failure Nephrology on case will get HD today, cath inserted on left side on 02/06 [id number]/1425 maintain neagtive balance on lasix drip. On nenvela for hyperphosphatemia # Hypotensive on Dobutamine Central line changed on 12/29/2016 Dobutamine @ 5mcgs/hr # Sepsis likely secondary to perforated diverticulitis s/p sigmoid resection with colostomy day Day 27 with an abdominal abscess s/p IR guided drainage Leukocytosis increased to 17.2 Continue IV Meropenam Day 23 Continue IV Fluconazole Day 26 Blood culture/Urine culture negative. # NSTEMI after surgery on Heparin Drip Troponin trending down # Atrial fibrillation-rate controlled on Heparin Drip Rate control with metoprolol 5mg IV q8h # FEN: Not on IV fluids Electrolytes to be repeated tomorrow on tube feed # Prophylaxis For DVT: On Heparin drip For GI: IV Famotidine 20mg BID # Code Status: DNR # Dispo: Admitted in ICU. Continue ICU care Visit type - Emergency Visit Emergency Visit: Yes ED Registration Date: 01/09/17 Care time: The patient presented to the Emergency Department on the above date and was hospitalized for further evaluation of their emergent condition. - New Patient This patient is new to me today: Yes Date on this admission: 02/06/17 - Critical Care Critical Care patient: Yes Total Critical Care Time (in minutes): 45 Critical Care Statement: The care of this patient involved high complexity decision making to prevent further life threatening deterioration of the patient 's condition and/or to evaluate & treat vital organ system(s) failure or risk of failure.
--- NOTE | 2017-02-06 16:39 | PN ---
Progress Note, Physician History of Present Illness: patient s stable no new issues patient being dialyzed has tolerated it - Current Medication List Current Medications: Active Medications Acetaminophen (Ofirmev Injection -) 1,000 mg IVPB Q6H PRN PRN Reason: FEVER Last Admin: 01/24/17 16:32 Dose: 1,000 mg Albuterol/Ipratropium (Duoneb -) 1 amp NEB QIDR DAVID Last Admin: 02/06/17 11:10 Dose: 1 amp Bacitracin (Bacitracin -) 1 applic TP BID [facility] Last Admin: 02/06/17 09:39 Dose: 1 applic Chlorhexidine Gluconate (Hibiclens For Decolonization -) 1 applic TP HS [facility] Last Admin: 02/05/17 21:18 Dose: 1 applic Collagenase (Santyl -) 1 applic TP BID [facility] Last Admin: 02/06/17 09:41 Dose: 1 applic Heparin Sodium (Porcine) (Heparin -) 1,000 unit IVPUSH PRN PRN PRN Reason: Heparin Last Admin: 01/28/17 09:19 Dose: 1,000 unit Heparin Sodium (Porcine) (Heparin -) 5,000 unit IVPUSH PRN PRN PRN Reason: Heparin Last Admin: 01/17/17 07:41 Dose: 5,000 unit Heparin Sodium (Porcine) (Heparin -) 1,000 unit IVPUSH PRN PRN PRN Reason: Heparin Heparin Sodium (Porcine) (Heparin -) 5,000 unit IVPUSH PRN PRN PRN Reason: Heparin Famotidine/Sodium Chloride (Pepcid 20 Mg Premixed Ivpb -) 50 mls @ 100 mls/hr IVPB BID [facility] Last Admin: 02/06/17 09:40 Dose: 100 mls/hr Fluconazole (Diflucan 200 Mg/D5w Premixed Ivpb -) 100 mls @ 100 mls/hr IVPB DAILY [facility] Last Admin: 02/06/17 09:40 Dose: 100 mls/hr Heparin Sodium/Dextrose (Heparin Infusion -) 500 mls @ 20 mls/hr IVPB TITR DAVID ; 1,000 UNITS/HR PRN Reason: Protocol Last Admin: 02/05/17 17:17 Dose: Not Given Meropenem 1 gm/ Dextrose 100 mls @ 100 mls/hr IVPB BID@0500,1700 DAVID PRN Reason: Protocol Last Admin: 02/06/17 06:07 Dose: 100 mls/hr Propofol (Diprivan -) 100 mls @ 3.486 mls/hr IVPB TITR DAVID; 5 MCG/KG/MIN PRN Reason: Protocol Last Admin: 02/06/17 08:00 Dose: 8.366 mls/hr Dobutamine HCl 250,000 mcg/ (Sodium Chloride) 250 mls @ 37.59 mls/hr IV TITR DAVID; 5 MCG/KG/MIN PRN Reason: Protocol Last Admin: 02/06/17 13:41 Dose: 37.59 mls/hr Furosemide 100 mg/ Sodium (Chloride) 50 mls @ 10 mls/hr IVPB TITR DAVID PRN Reason: 20 MG/HR Last Admin: 02/06/17 13:40 Dose: 10 mls/hr Heparin Sodium (Porcine) 25, (000 unit/ Sodium Chloride) 500 mls @ 20 mls/hr IV TITR DAVID; 1,000 UNIT/HR PRN Reason: Protocol Last Admin: 02/05/17 18:46 Dose: 20 mls/hr Metoprolol Tartrate (Lopressor Injection -) 5 mg IVPB Q8H-IV DAVID Last Admin: 02/06/17 09:40 Dose: Not Given Sevelamer Carbonate (Renvela Powder Packet -) 1.6 gm NGT TIDCM DAVID Last Admin: 02/06/17 12:36 Dose: 1.6 gm - Objective Vital Signs: Vital Signs Temperature 98 F 02/06/17 16:00 Pulse Rate 102 H 02/06/17 16:00 Respiratory Rate 15 02/06/17 16:10 Blood Pressure 111/61 02/06/17 16:00 O2 Sat by Pulse Oximetry (%) 95 02/06/17 10:00 Constitutional: Yes: Other Cardiovascular: Yes: S1, S2, Other Respiratory: Yes: Mechanically Ventilated, Other (trach) Gastrointestinal: Yes: Soft, Other (drainage tube still draining) Extremities: Yes: Other Edema: LLE: Trace, RLE: Trace Neurological: Yes: Other Psychiatric: Yes: Other Labs: CBC, BMP 02/06/17 05:20 INR, PTT INR 1.12 (0.82-1.09) 02/05/17 06:05 Assessment/Plan 81 y/o old with multiple medical problems with perforated bowel post op Perforated bowel Peritonitis Sepsis s/p ex-lap with sigmoid resection, colostomy Resolving JG Lactic acidosis AF h/o DVT/PE septic shock plan continue current management rest continue abx will add ampicillin nutrition monitor wbc wound debridement done trach in place dialysis being done cc tim40 min
[2017-02-06] MEDS ORDERED: AMPICILLIN - 100 ML IVPB SCH (16:45)
[2017-02-06 16:56] LABS: ANION GAP 15 (8-16); CALCIUM 7.3 mg/dL (8.5-10.1); CO2 21 mmol/L (21-32); CREATININE 3.5 mg/dL (0.55-1.02); GLUCOSE,RANDOM 60 mg/dL (74-106)
[2017-02-06] MEDS: ALBUMIN HUMAN 25% 12.5 GM/50 ML VIAL IVPB SCH ×2 (17:11→17:12)
[2017-02-06] MEDS: HEPARIN NA (PORCINE) 5,000 UNITS/ML 1ML VIAL IVPUSH PRN (18:04)
[2017-02-06] MEDS: HEPARIN INFUSION - 500 ML IVPB SCH (18:09)
--- NOTE | 2017-02-06 18:40 | PN ---
Progress Note, Physician Chief Complaint: Intubated for respiratory failure, s/p trach and ultrafiltration yesterday, History of Present Illness: 81 yrs old admitted with c/o abd pain, nausea and vomiting with sepsis secondary to perforated sigmoid diverticulitis underwent explanatory laprotomy , sigmoid colon resection and colostomy on 01/09/2017 ,underwent IR guide aspiration of abscess today intubated for respiratory failure. on 01/20/2017 s/p trach and - Current Medication List Current Medications: Active Medications Acetaminophen (Ofirmev Injection -) 1,000 mg IVPB Q6H PRN PRN Reason: FEVER Last Admin: 01/24/17 16:32 Dose: 1,000 mg Albuterol/Ipratropium (Duoneb -) 1 amp NEB QIDR [facility] Last Admin: 02/06/17 18:35 Dose: 1 amp Bacitracin (Bacitracin -) 1 applic TP BID [facility] Last Admin: 02/06/17 09:39 Dose: 1 applic Chlorhexidine Gluconate (Hibiclens For Decolonization -) 1 applic TP HS [facility] Last Admin: 02/05/17 21:18 Dose: 1 applic Collagenase (Santyl -) 1 applic TP BID [facility] Last Admin: 02/06/17 09:41 Dose: 1 applic Heparin Sodium (Porcine) (Heparin -) 1,000 unit IVPUSH PRN PRN PRN Reason: Heparin Last Admin: 01/28/17 09:19 Dose: 1,000 unit Heparin Sodium (Porcine) (Heparin -) 5,000 unit IVPUSH PRN PRN PRN Reason: Heparin Last Admin: 02/06/17 18:04 Dose: 5,000 unit Heparin Sodium (Porcine) (Heparin -) 1,000 unit IVPUSH PRN PRN PRN Reason: Heparin Heparin Sodium (Porcine) (Heparin -) 5,000 unit IVPUSH PRN PRN PRN Reason: Heparin Famotidine/Sodium Chloride (Pepcid 20 Mg Premixed Ivpb -) 50 mls @ 100 mls/hr IVPB BID [facility] Last Admin: 02/06/17 09:40 Dose: 100 mls/hr Fluconazole (Diflucan 200 Mg/D5w Premixed Ivpb -) 100 mls @ 100 mls/hr IVPB DAILY [facility] Last Admin: 02/06/17 09:40 Dose: 100 mls/hr Heparin Sodium/Dextrose (Heparin Infusion -) 500 mls @ 20 mls/hr IVPB TITR DAVID ; 1,000 UNITS/HR PRN Reason: Protocol Last Admin: 02/06/17 18:09 Dose: Not Given Meropenem 1 gm/ Dextrose 100 mls @ 100 mls/hr IVPB BID@0500,1700 DAVID PRN Reason: Protocol Last Admin: 02/06/17 17:33 Dose: 100 mls/hr Propofol (Diprivan -) 100 mls @ 3.486 mls/hr IVPB TITR DAVID; 5 MCG/KG/MIN PRN Reason: Protocol Last Admin: 02/06/17 08:00 Dose: 8.366 mls/hr Dobutamine HCl 250,000 mcg/ (Sodium Chloride) 250 mls @ 37.59 mls/hr IV TITR DAVID; 5 MCG/KG/MIN PRN Reason: Protocol Last Admin: 02/06/17 13:41 Dose: 37.59 mls/hr Furosemide 100 mg/ Sodium (Chloride) 50 mls @ 10 mls/hr IVPB TITR DAVID PRN Reason: 20 MG/HR Last Admin: 02/06/17 13:40 Dose: 10 mls/hr Heparin Sodium (Porcine) 25, (000 unit/ Sodium Chloride) 500 mls @ 20 mls/hr IV TITR DAVID; 1,000 UNIT/HR PRN Reason: Protocol Last Titration: 02/06/17 18:04 Dose: 1,300 unit/hr Ampicillin Sodium (Ampicillin 1 Gram Ivpb (Pre-Docked)) 100 mls @ 200 mls/hr IVPB Q12H DAVID Last Admin: 02/06/17 18:34 Dose: 200 mls/hr Metoprolol Tartrate (Lopressor Injection -) 5 mg IVPB Q8H-IV DAVID Last Admin: 02/06/17 17:33 Dose: 5 mg Sevelamer Carbonate (Renvela Powder Packet -) 1.6 gm NGT TIDCM DAVID Last Admin: 02/06/17 17:34 Dose: 1.6 gm - Objective Vital Signs: Vital Signs Temperature 97.8 F 02/06/17 18:00 Pulse Rate 101 H 02/06/17 18:33 Respiratory Rate 17 02/06/17 18:33 Blood Pressure 115/76 02/06/17 18:00 O2 Sat by Pulse Oximetry (%) 92 L 02/06/17 18:33 General: Elderly F s/p intubated , unresponsive, not responding to verbal command. 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 Labs: CBC, BMP 02/06/17 05:20 02/06/17 15:30 INR, PTT INR 1.12 (0.82-1.09) 02/05/17 06:05 Problem List - Problems (1) Diverticulitis of large intestine with perforation and abscess without bleeding Assessment/Plan: S/P Sepsis, Explanatory laprotomy on 07/12/2016 F/U surgery recommendations, NPO , cont Meropenem and Vancomycine. Code(s): K57.20 - DVTRCLI OF LG INT W PERFORATION AND ABSCESS W/O BLEEDING (2) Left ventricular systolic dysfunction Assessment/Plan: F/U cardiology recommendation. Code(s): I51.9 - HEART DISEASE, UNSPECIFIED (3) Respiratory failure Assessment/Plan: s/p intubation saturation well Code(s): J96.90 - RESPIRATORY FAILURE, UNSP, UNSP W HYPOXIA OR HYPERCAPNIA Qualifiers: Qualified Code(s): J96.01 - Acute respiratory failure with hypoxia (4) Abdominal abscess Assessment/Plan: s/p I and D at present in sepsis. cont current abx Code(s): K65.1 - PERITONEAL ABSCESS (5) Acute renal failure (ARF) Assessment/Plan: Comfort care no active management Code(s): N17.9 - ACUTE KIDNEY FAILURE, UNSPECIFIED
[2017-02-06 19:23] LABS: MAGNESIUM 2.2 mg/dL (1.8-2.4)
[2017-02-06 19:29] LABS: PHOSPHOROUS 8.1 mg/dL (2.5-4.9)
[2017-02-06] MEDS: CHLORHEXIDINE GLUCONATE 4% CLEANSER FOR DECOLONIZATION TP SCH (21:17)
[2017-02-06] MEDS: HEPARIN - 25,000 UNIT in SODIUM CHLORIDE 495 ML IV SCH (21:24)
[2017-02-06] MEDS: AMPICILLIN - 2 GM in SODIUM CHLORIDE 100 ML IVPB SCH (21:34)
[2017-02-07] MEDS: ALBUTEROL SO4 2.5/IPRATROPIUM 0.5 INH SOL 3 ML VIAL.NEB. NEB SCH ×4 (00:05→17:27)
[2017-02-07] MEDS: HEPARIN - 25,000 UNIT in SODIUM CHLORIDE 495 ML IV SCH ×2 (01:00→20:57)
[2017-02-07] MEDS: METOPROLOL TARTRATE 5 MG/5 ML VIAL IVPB SCH ×3 (02:16→17:15)
[2017-02-07] MEDS: MEROPENEM 1 GM in DEXTROSE 5%-WATER - 100 ML IVPB SCH ×2 (04:35→17:15)
[2017-02-07 06:00] LABS: MCH 31.6 pg (25.7-33.7); MCHC 33.5 g/dl (32.0-36.0); MEAN CELL VOLUME 94.2 fl (80-96); MEAN PLT VOLUME 9.2 fl (7.5-11.1); PLATELET COUNT 347 K/MM3 (134-434); RDW 15.3 % (11.6-15.6); WHITE BLOOD COUNT 18.7 K/mm3 (4.0-10.0)
[2017-02-07 06:20] LABS: ALBUMIN 1.2 g/dl (3.4-5.0); ALK PHOS 130 U/L (45-117); ANION GAP 15 (8-16); BILIRUBIN,TOTAL 0.5 mg/dL (0.2-1.0); CO2 24 mmol/L (21-32); GLUCOSE,RANDOM 99 mg/dL (74-106); SGOT/AST 20 U/L (15-37); SGPT/ALT 7 U/L (12-78); TOT PROT 4.5 g/dl (6.4-8.2)
[2017-02-07 07:01] LABS: PLATELET ESTIMATE ADEQUATE (NORMAL); TOTAL CELLS COUNTED 100
[2017-02-07] MEDS ORDERED: SODIUM CHLORIDE IVPB SCH (08:00)
[2017-02-07] MEDS ORDERED: FUROSEMIDE IVPB SCH (08:00)
[2017-02-07] MEDS ORDERED: PT OWN MED DRAWER 7, Y5N ONE ×3 (08:07→17:14)
[2017-02-07] MEDS ORDERED: FUROSEMIDE 40 MG/4 ML INJECTABLE VIAL ONE ×3 (08:08→08:11)
--- NOTE | 2017-02-07 08:16 | PN ---
Progress Note (short form) - Note Progress Note: PULM/CCM Pt seen and examined in the ICU SUBJECTIVE: 24HR events -s/p HD with ultrafiltration of 1KG, but still with positive fluid balance -bloody output from colostomy, holding heparin gtt -wbc down trending, no fever OBJECTIVE: Vital Signs Temp 98.4 F 02/07/17 06:00 Pulse 119 H 02/07/17 08:03 Resp 19 02/07/17 08:00 BP 86/50 02/07/17 08:03 Pulse Ox 92 L 02/06/17 20:00 Intake & Output 02/06/17 02/06/17 02/07/17 11:59 23:59 11:59 Intake Total 872.2 1037 1822 Output Total 200 1070 820 Balance 672.2 -33 1002 Weight 132.1 kg 128.922 kg Intake: IV 772.2 737 1032 Diprivan - 100 ml @ 5 MCG 90.3 50 60 /KG/MIN 3.486 mls/hr IVPB TITR DAVID Rx#:[id number] Dobutrex - 250,000 Mcg In 371.7 371 420 Normal Saline - 230 ml @ 5 MCG/KG/MIN 37.59 mls/ hr IV TITR DAVID Rx#: [id number] Lasix Injection - 100 mg 107.6 120 In Normal Saline - 40 ml @ 20 MG/HR 10 mls/hr IVPB TITR DAVID Rx#:[id number] Heparin - 25,000 Unit In 202.6 196 312 Normal Saline - 495 ml @ 1,000 UNIT/HR 20 mls/hr IV TITR DAVID Rx#: [id number] LASIX DRIP 240 IVPB 100 300 250 Tube Feeding 420 Tube Irrigant 120 Output: Drainage 20 20 Left Abdomen 20 20 Urine 200 1050 800 Jennings 200 1050 800 Other: Voiding Method Indwelling Catheter Indwelling Catheter Bowel Movement Yes Yes Yes Weight Measurement Method [facility] Gen: vented, sedated Neuro: some response to noxious stimuili , not following commands Heart: tachy irregular Lung: bilateral rhonchi Abd: soft, nontender, colostomy with bloody output, L drain with pus, wound dressed, Ext: + pittings edema CBC, BMP 02/07/17 05:15 02/07/17 05:15 Active Medications Acetaminophen (Ofirmev Injection -) 1,000 mg IVPB Q6H PRN PRN Reason: FEVER Last Admin: 01/24/17 16:32 Dose: 1,000 mg Albuterol/Ipratropium (Duoneb -) 1 amp NEB QIDR [facility] Last Admin: 02/07/17 06:49 Dose: 1 amp Bacitracin (Bacitracin -) 1 applic TP BID [facility] Last Admin: 02/06/17 21:17 Dose: 1 applic Chlorhexidine Gluconate (Hibiclens For Decolonization -) 1 applic TP HS [facility] Last Admin: 02/06/17 21:17 Dose: 1 applic Collagenase (Santyl -) 1 applic TP BID [facility] Last Admin: 02/06/17 21:19 Dose: 1 applic Heparin Sodium (Porcine) (Heparin -) 1,000 unit IVPUSH PRN PRN PRN Reason: Heparin Last Admin: 01/28/17 09:19 Dose: 1,000 unit Heparin Sodium (Porcine) (Heparin -) 5,000 unit IVPUSH PRN PRN PRN Reason: Heparin Last Admin: 02/06/17 18:04 Dose: 5,000 unit Heparin Sodium (Porcine) (Heparin -) 1,000 unit IVPUSH PRN PRN PRN Reason: Heparin Heparin Sodium (Porcine) (Heparin -) 5,000 unit IVPUSH PRN PRN PRN Reason: Heparin Famotidine/Sodium Chloride (Pepcid 20 Mg Premixed Ivpb -) 50 mls @ 100 mls/hr IVPB BID [facility] Last Admin: 02/06/17 21:17 Dose: 100 mls/hr Fluconazole (Diflucan 200 Mg/D5w Premixed Ivpb -) 100 mls @ 100 mls/hr IVPB DAILY [facility] Last Admin: 02/06/17 09:40 Dose: 100 mls/hr Meropenem 1 gm/ Dextrose 100 mls @ 100 mls/hr IVPB BID@0500,1700 DAVID PRN Reason: Protocol Last Admin: 02/07/17 04:35 Dose: 100 mls/hr Propofol (Diprivan -) 100 mls @ 3.486 mls/hr IVPB TITR DAVID; 5 MCG/KG/MIN PRN Reason: Protocol Last Admin: 02/06/17 22:00 Dose: 3.486 mls/hr Dobutamine HCl 250,000 mcg/ (Sodium Chloride) 250 mls @ 37.59 mls/hr IV TITR DAVID; 5 MCG/KG/MIN PRN Reason: Protocol Last Titration: 02/07/17 08:03 Dose: 5.59 mcg/kg/min Heparin Sodium (Porcine) 25, (000 unit/ Sodium Chloride) 500 mls @ 20 mls/hr IV TITR DAVID; 1,000 UNIT/HR PRN Reason: Protocol Last Admin: 02/07/17 01:00 Dose: 23 mls/hr Ampicillin Sodium 2 gm/ Sodium (Chloride) 100 mls @ 200 mls/hr IVPB BID [facility]ID Last Admin: 02/06/17 21:34 Dose: 200 mls/hr Furosemide 200 mg/ Sodium (Chloride) 100 mls @ 10 mls/hr IVPB TITR DAVID PRN Reason: 20 MG/HR Last Admin: 02/07/17 07:49 Dose: Not Given Metoprolol Tartrate (Lopressor Injection -) 5 mg IVPB Q8H-IV DAVID Last Admin: 02/07/17 02:16 Dose: 5 mg Sevelamer Carbonate (Renvela Powder Packet -) 1.6 gm NGT TIDCM DAVID Last Admin: 02/06/17 17:34 Dose: 1.6 gm ASSESSMENT AND PLAN: Acute Hypoxic Respiratory Failure Perforated Diverticulitis s/p Sigmoid Resection/Colostomy 01/09 Intra-abdominal Abscess Acute on Chronic Systolic Heart Failure Acute Kidney Injury Volume Overload h/o DVT/PE Atrial Fibrillation Hyponatremia - continue antibiotics - monitor drain output, still with pus - continue dobutamine, lasix gtts in attempt to get negative fluid balance - HD as per Nephrology, likely needs daily for awhile - monitor urine output, creatinine - taper FiO2, PEEP to keep SpO2 >90% - hold A/c given blood in colostomy, restart when resolves - daily awakening to assess mental status - PS wean as tolerated - continue ICU monitoring - poor prognosis, ongoing discussions with family Cesar Oliver ACNP 4458 35min CCT
[2017-02-07] MEDS: SEVELAMER CARBONATE 0.8 GM POWDER PACKET NGT SCH ×3 (08:52→17:12)
[2017-02-07] MEDS: FAMOTIDINE 20 MG/50 ML IVPB 50 ML IVPB SCH ×2 (08:59→21:20)
[2017-02-07] MEDS ORDERED: DOBUTAMINE 250 MG/D5W - 250 ML ONE (09:15)
[2017-02-07] MEDS: FLUCONAZOLE 200 MG/D5W 100 ML IVPB SCH (09:17)
[2017-02-07] MEDS: DOBUTAMINE HCL 250,000 MCG in SODIUM CHLORIDE 230 ML IV SCH (09:47)
[2017-02-07] MEDS: COLLAGENASE CLOSTRIDIUM HIST. 30 GRAMS TUBE TP SCH ×2 (09:49→21:21)
--- NOTE | 2017-02-07 10:45 | PN ---
Progress Note (short form) - Note Progress Note: Attending Surgeon POD # 29 Remains in ICU on vent via trach No gross change in condition; wound which was excisionally debrided 2 days ago appears worse secondary to poor nutritional status and healing; wound is open and ~ 20 x 10 cm. w/ fibrinous exudate which was previously debrided. Prognosis remains poor; will continue to f/u. Taqueria Prado MD FACS
--- NOTE | 2017-02-07 10:49 | PN ---
Progress Note (short form) - Note Progress Note: Renal Follow up for JG Pt seen and examined in the ICU on vent, sedated good urine output s/p dialysis yesterday with 1kg UF BP marginal today, HR elevated on dobutamine gtt Vital Signs Temperature 98.4 F 02/07/17 06:00 Pulse Rate 128 H 02/07/17 10:22 Respiratory Rate 20 02/07/17 10:23 Blood Pressure 90/59 02/07/17 09:47 O2 Sat by Pulse Oximetry (%) 95 02/07/17 10:23 Intake & Output 02/04/17 02/05/17 02/06/17 02/07/17 23:59 23:59 23:59 23:59 Intake Total 1963 1875.6 1909.2 1972 Output Total 800 1425 1270 820 Balance 1163 450.6 639.2 1152 Weight 295 lb 3.183 oz 291 lb 3.69 oz 284 lb 3.574 oz Gen: intubated on vent CVS: RRR Lungs: Dec BS throughout the lung dimas Abd: soft NT/ND Ext: 2+ edema upper ext and lower ext CBC, BMP 02/07/17 05:15 02/07/17 05:15 Laboratory Tests 02/07/17 05:15 Calcium 7.0 L Albumin 1.2 L Current Medications Acetaminophen (Ofirmev Injection -) 1,000 mg IVPB Q6H PRN PRN Reason: FEVER Last Admin: 01/24/17 16:32 Dose: 1,000 mg Albuterol/Ipratropium (Duoneb -) 1 amp NEB QIDR [facility] Last Admin: 02/07/17 06:49 Dose: 1 amp Bacitracin (Bacitracin -) 1 applic TP BID [facility] Last Admin: 02/06/17 21:17 Dose: 1 applic Chlorhexidine Gluconate (Hibiclens For Decolonization -) 1 applic TP HS [facility] Last Admin: 02/06/17 21:17 Dose: 1 applic Collagenase (Santyl -) 1 applic TP BID [facility] Last Admin: 02/07/17 09:49 Dose: 1 applic Heparin Sodium (Porcine) (Heparin -) 1,000 unit IVPUSH PRN PRN PRN Reason: Heparin Last Admin: 01/28/17 09:19 Dose: 1,000 unit Heparin Sodium (Porcine) (Heparin -) 5,000 unit IVPUSH PRN PRN PRN Reason: Heparin Last Admin: 02/06/17 18:04 Dose: 5,000 unit Heparin Sodium (Porcine) (Heparin -) 1,000 unit IVPUSH PRN PRN PRN Reason: Heparin Heparin Sodium (Porcine) (Heparin -) 5,000 unit IVPUSH PRN PRN PRN Reason: Heparin Famotidine/Sodium Chloride (Pepcid 20 Mg Premixed Ivpb -) 50 mls @ 100 mls/hr IVPB BID [facility] Last Admin: 02/07/17 08:59 Dose: 100 mls/hr Fluconazole (Diflucan 200 Mg/D5w Premixed Ivpb -) 100 mls @ 100 mls/hr IVPB DAILY [facility] Last Admin: 02/07/17 09:17 Dose: 100 mls/hr Meropenem 1 gm/ Dextrose 100 mls @ 100 mls/hr IVPB BID@0500,1700 DAVID PRN Reason: Protocol Last Admin: 02/07/17 04:35 Dose: 100 mls/hr Propofol (Diprivan -) 100 mls @ 3.486 mls/hr IVPB TITR DAVID; 5 MCG/KG/MIN PRN Reason: Protocol Last Admin: 02/06/17 22:00 Dose: 3.486 mls/hr Heparin Sodium (Porcine) 25, (000 unit/ Sodium Chloride) 500 mls @ 20 mls/hr IV TITR DAVID; 1,000 UNIT/HR PRN Reason: Protocol Last Titration: 02/07/17 08:17 Dose: 0 unit/hr Ampicillin Sodium 2 gm/ Sodium (Chloride) 100 mls @ 200 mls/hr IVPB BID [facility] Last Admin: 02/06/17 21:34 Dose: 200 mls/hr Metoprolol Tartrate (Lopressor Injection -) 5 mg IVPB Q8H-IV [facility] Last Admin: 02/07/17 02:16 Dose: 5 mg Sevelamer Carbonate (Renvela Powder Packet -) 1.6 gm NGT TIDCM [facility] Last Admin: 02/07/17 08:52 Dose: 1.6 gm A/P 81 year old woman with PMhx of CKD? (Atrophic Kidney seen on US which is a chronic finding), Diverticulosis, DVT/PE on Warfarin, Hypertension who presented with Abd pain and found to have perforated bowel with diverticulitis s /p bowel resection with colostomy with JG with Cr of 2. #Non-oliguric acute kidney failure with total body volume overload and respiratory failure s/p dialysis yesterday, tolerated 1kg UF still volume overloaded, will need additional UF today will d/c dobutamine gtt, Decrease Lasix to 10mg per hour if hemodynamically stable can attempt further dialysis today with UF as tolerated #Hyponatremia secondary to total body volume overload in setting of HF and JG improving with UF #Sepsis/Shock/Perforated Abd viscus Continue ICU care Prognosis guarded Jair Medley DO Problem List - Problems (1) Perforated bowel Code(s): K63.1 - PERFORATION OF INTESTINE (NONTRAUMATIC) (2) Sepsis Code(s): A41.9 - SEPSIS, UNSPECIFIED ORGANISM Qualifiers: Qualified Code(s): A41.9 - Sepsis, unspecified organism (3) Acute renal failure (ARF) Code(s): N17.9 - ACUTE KIDNEY FAILURE, UNSPECIFIED (4) CKD (chronic kidney disease) Code(s): N18.9 - CHRONIC KIDNEY DISEASE, UNSPECIFIED (5) Hypertension Code(s): I10 - ESSENTIAL (PRIMARY) HYPERTENSION (6) Diverticulosis Code(s): K57.90 - DVRTCLOS OF INTEST, PART UNSP, W/O PERF OR ABSCESS W/O BLEED
[2017-02-07] MEDS: BACITRACIN 15 GM TUBE TOPICAL OINTMENT TP SCH ×2 (10:52→21:21)
[2017-02-07] MEDS: PROPOFOL 100 ML IVPB SCH (10:52)
[2017-02-07] MEDS: AMPICILLIN - 2 GM in SODIUM CHLORIDE 100 ML IVPB SCH ×2 (10:57→21:17)
[2017-02-07] MEDS ORDERED: MIDODRINE HCL 5 MG TABLET PO ONE (11:07)
[2017-02-07] MEDS ORDERED: PHENYLEPHRINE HCL 10 MG/1 ML SINGLE DOSE VIAL ONE ×4 (11:59→21:07)
[2017-02-07] MEDS: PHENYLEPHRINE HCL 20,000 MCG in SODIUM CHLORIDE 248 ML IVPB SCH ×3 (12:02→18:41)
--- NOTE | 2017-02-07 14:00 | PN ---
Progress Note, Physician History of Present Illness: continues to be critical wound still with exudate patient being dialysed - Current Medication List Current Medications: Active Medications Acetaminophen (Ofirmev Injection -) 1,000 mg IVPB Q6H PRN PRN Reason: FEVER Last Admin: 01/24/17 16:32 Dose: 1,000 mg Albuterol/Ipratropium (Duoneb -) 1 amp NEB QIDR [facility] Last Admin: 02/07/17 11:53 Dose: 1 amp Bacitracin (Bacitracin -) 1 applic TP BID [facility] Last Admin: 02/07/17 10:52 Dose: 1 applic Chlorhexidine Gluconate (Hibiclens For Decolonization -) 1 applic TP HS [facility] Last Admin: 02/06/17 21:17 Dose: 1 applic Collagenase (Santyl -) 1 applic TP BID [facility] Last Admin: 02/07/17 09:49 Dose: 1 applic Heparin Sodium (Porcine) (Heparin -) 1,000 unit IVPUSH PRN PRN PRN Reason: Heparin Last Admin: 01/28/17 09:19 Dose: 1,000 unit Heparin Sodium (Porcine) (Heparin -) 5,000 unit IVPUSH PRN PRN PRN Reason: Heparin Last Admin: 02/06/17 18:04 Dose: 5,000 unit Heparin Sodium (Porcine) (Heparin -) 1,000 unit IVPUSH PRN PRN PRN Reason: Heparin Heparin Sodium (Porcine) (Heparin -) 5,000 unit IVPUSH PRN PRN PRN Reason: Heparin Famotidine/Sodium Chloride (Pepcid 20 Mg Premixed Ivpb -) 50 mls @ 100 mls/hr IVPB BID [facility] Last Admin: 02/07/17 08:59 Dose: 100 mls/hr Fluconazole (Diflucan 200 Mg/D5w Premixed Ivpb -) 100 mls @ 100 mls/hr IVPB DAILY [facility] Last Admin: 02/07/17 09:17 Dose: 100 mls/hr Meropenem 1 gm/ Dextrose 100 mls @ 100 mls/hr IVPB BID@0500,1700 DAVID PRN Reason: Protocol Last Admin: 02/07/17 04:35 Dose: 100 mls/hr Propofol (Diprivan -) 100 mls @ 3.486 mls/hr IVPB TITR DAVID; 5 MCG/KG/MIN PRN Reason: Protocol Last Admin: 02/07/17 10:52 Dose: 3.5 mls/hr Heparin Sodium (Porcine) 25, (000 unit/ Sodium Chloride) 500 mls @ 20 mls/hr IV TITR DAVID; 1,000 UNIT/HR PRN Reason: Protocol Last Titration: 02/07/17 08:17 Dose: 0 unit/hr Ampicillin Sodium 2 gm/ Sodium (Chloride) 100 mls @ 200 mls/hr IVPB BID [facility] Last Admin: 02/07/17 10:57 Dose: 200 mls/hr Phenylephrine HCl 20,000 mcg/ (Sodium Chloride) 250 mls @ 75 mls/hr IVPB ASDIR DAVID; 100 MCG/MIN PRN Reason: Protocol Last Admin: 02/07/17 12:02 Dose: 75 mls/hr Metoprolol Tartrate (Lopressor Injection -) 5 mg IVPB Q8H-IV [facility] Last Admin: 02/07/17 10:51 Dose: Not Given Midodrine (Proamatine -) 5 mg PO TID-MID [facility]ID Sevelamer Carbonate (Renvela Powder Packet -) 1.6 gm NGT TIDCM [facility] Last Admin: 02/07/17 11:26 Dose: 1.6 gm - Objective Vital Signs: Vital Signs Temperature 98.3 F 02/07/17 12:00 Pulse Rate 101 H 02/07/17 13:30 Respiratory Rate 21 02/07/17 13:30 Blood Pressure 107/73 02/07/17 13:30 O2 Sat by Pulse Oximetry (%) 95 02/07/17 10:23 Constitutional: Yes: Other Neck: Yes: Other (trachestomy) Cardiovascular: Yes: S1, S2, Other Respiratory: Yes: Mechanically Ventilated, Other (trach) Gastrointestinal: Yes: Soft, Other (wound seen) Musculoskeletal: Yes: Other Extremities: Yes: Other Edema: LLE: Trace, RLE: Trace Wound/Incision: Yes: Other Neurological: Yes: Other Labs: CBC, BMP 02/07/17 05:15 02/07/17 05:15 INR, PTT INR 1.12 (0.82-1.09) 02/05/17 06:05 Assessment/Plan 81 y/o old with multiple medical problems with perforated bowel post op Perforated bowel Peritonitis Sepsis s/p ex-lap with sigmoid resection, colostomy Resolving JG Lactic acidosis AF h/o DVT/PE septic shock plan continue current management continue abx nutrition rest as per primary dialysis as planned monitor wbc cc tim40 min
[2017-02-07] MEDS: MIDODRINE HCL 5 MG TABLET PO SCH ×2 (17:12→17:15)
[2017-02-07] MEDS: CHLORHEXIDINE GLUCONATE 4% CLEANSER FOR DECOLONIZATION TP SCH (21:20)
[2017-02-08] MEDS: ALBUTEROL SO4 2.5/IPRATROPIUM 0.5 INH SOL 3 ML VIAL.NEB. NEB SCH ×5 (00:09→23:56)
[2017-02-08] MEDS ORDERED: PHENYLEPHRINE HCL 10 MG/1 ML SINGLE DOSE VIAL ONE ×5 (00:24→22:14)
[2017-02-08] MEDS: METOPROLOL TARTRATE 5 MG/5 ML VIAL IVPB SCH ×3 (02:00→17:53)
[2017-02-08] MEDS: MEROPENEM 1 GM in DEXTROSE 5%-WATER - 100 ML IVPB SCH ×2 (04:06→16:53)
[2017-02-08 06:04] LABS: BASOPHIL 0.4 % (0-2.0); EOSINOPHIL 1.1 % (0-4.5); MCH 31.8 pg (25.7-33.7); MCHC 33.3 g/dl (32.0-36.0); MEAN CELL VOLUME 95.5 fl (80-96); MEAN PLT VOLUME 9.3 fl (7.5-11.1); NEUTROPHILS 90.5 % (42.8-82.8); PLATELET COUNT 360 K/MM3 (134-434); RDW 15.7 % (11.6-15.6); WHITE BLOOD COUNT 17.9 K/mm3 (4.0-10.0)
[2017-02-08 06:33] LABS: ALBUMIN 1.6 g/dl (3.4-5.0); ALK PHOS 131 U/L (45-117); ANION GAP 12 (8-16); BILIRUBIN,TOTAL 0.7 mg/dL (0.2-1.0); CALCIUM 7.3 mg/dL (8.5-10.1); CO2 27 mmol/L (21-32); CREATININE 2.4 mg/dL (0.55-1.02); GLUCOSE,RANDOM 97 mg/dL (74-106); MAGNESIUM 2.2 mg/dL (1.8-2.4); SGOT/AST 22 U/L (15-37); SGPT/ALT 8 U/L (12-78); TOT PROT 4.7 g/dl (6.4-8.2)
[2017-02-08 06:41] LABS: HEP B SURFACE AB Non Reactive (.)
[2017-02-08] MEDS ORDERED: PT OWN MED DRAWER 7, Y5N ONE ×3 (08:36→16:38)
[2017-02-08] MEDS: SEVELAMER CARBONATE 0.8 GM POWDER PACKET NGT SCH ×3 (08:38→16:54)
--- NOTE | 2017-02-08 09:12 | PN ---
Progress Note (short form) - Note Progress Note: Seen and examined in the ICU cont low grade fever 100.2 On going goals of care discussions w/ family On phenylephrine gtt for BP support Current Medications Acetaminophen (Ofirmev Injection -) 1,000 mg IVPB Q6H PRN PRN Reason: FEVER Last Admin: 01/24/17 16:32 Dose: 1,000 mg Albuterol/Ipratropium (Duoneb -) 1 amp NEB QIDR [facility] Last Admin: 02/08/17 06:32 Dose: 1 amp Bacitracin (Bacitracin -) 1 applic TP BID [facility] Last Admin: 02/07/17 21:21 Dose: 1 applic Chlorhexidine Gluconate (Hibiclens For Decolonization -) 1 applic TP HS [facility] Last Admin: 02/07/17 21:20 Dose: 1 applic Collagenase (Santyl -) 1 applic TP BID [facility] Last Admin: 02/07/17 21:21 Dose: 1 applic Heparin Sodium (Porcine) (Heparin -) 1,000 unit IVPUSH PRN PRN PRN Reason: Heparin Last Admin: 01/28/17 09:19 Dose: 1,000 unit Heparin Sodium (Porcine) (Heparin -) 5,000 unit IVPUSH PRN PRN PRN Reason: Heparin Last Admin: 02/06/17 18:04 Dose: 5,000 unit Heparin Sodium (Porcine) (Heparin -) 1,000 unit IVPUSH PRN PRN PRN Reason: Heparin Heparin Sodium (Porcine) (Heparin -) 5,000 unit IVPUSH PRN PRN PRN Reason: Heparin Famotidine/Sodium Chloride (Pepcid 20 Mg Premixed Ivpb -) 50 mls @ 100 mls/hr IVPB BID [facility] Last Admin: 02/07/17 21:20 Dose: 100 mls/hr Fluconazole (Diflucan 200 Mg/D5w Premixed Ivpb -) 100 mls @ 100 mls/hr IVPB DAILY [facility] Last Admin: 02/07/17 09:17 Dose: 100 mls/hr Meropenem 1 gm/ Dextrose 100 mls @ 100 mls/hr IVPB BID@0500,1700 DAVID PRN Reason: Protocol Last Admin: 02/08/17 04:06 Dose: 100 mls/hr Propofol (Diprivan -) 100 mls @ 3.486 mls/hr IVPB TITR DAVID; 5 MCG/KG/MIN PRN Reason: Protocol Last Admin: 02/07/17 10:52 Dose: 3.5 mls/hr Heparin Sodium (Porcine) 25, (000 unit/ Sodium Chloride) 500 mls @ 20 mls/hr IV TITR DAVID; 1,000 UNIT/HR PRN Reason: Protocol Last Admin: 02/07/17 20:57 Dose: Not Given Ampicillin Sodium 2 gm/ Sodium (Chloride) 100 mls @ 200 mls/hr IVPB BID [facility] Last Admin: 02/07/17 21:17 Dose: 200 mls/hr Phenylephrine HCl 20,000 mcg/ (Sodium Chloride) 250 mls @ 75 mls/hr IVPB ASDIR DAVID; 100 MCG/MIN PRN Reason: Protocol Last Admin: 02/07/17 18:41 Dose: 75 mls/hr Metoprolol Tartrate (Lopressor Injection -) 5 mg IVPB Q8H-IV [facility] Last Admin: 02/08/17 02:00 Dose: Not Given Midodrine (Proamatine -) 5 mg PO TID-MID [facility] Last Admin: 02/07/17 17:15 Dose: 5 mg Sevelamer Carbonate (Renvela Powder Packet -) 1.6 gm NGT TIDCM [facility] Last Admin: 02/08/17 08:38 Dose: 1.6 gm Vital Signs Period Temp Pulse Resp BP Sys/Riley Pulse Ox Last 24 Hr 98.1 F-100.2 F 86-128 14-55 90-112/48-73 95-96 Intake & Output 02/05/17 02/06/17 02/07/17 02/08/17 23:59 23:59 23:59 23:59 Intake Total 1875.6 1909.2 3538 1738 Output Total 1425 1270 1620 200 Balance 450.6 639.2 1918 1538 Weight 133.9 kg 132.1 kg 128.922 kg 129.274 kg Gen: vented, sedated Neuro: some response to noxious stimuili , not following commands Heart: tachy irregular Lung: bilateral rhonchi Abd: soft, nontender, colostomy with bloody output, L drain with pus, wound dressed, Ext: + pittings edema CBCD WBC 17.9 K/mm3 (4.0-10.0) H 02/08/17 05:15 RBC 2.37 M/mm3 (3.60-5.2) L 02/08/17 05:15 Hgb 7.5 GM/dL (10.7-15.3) L 02/08/17 05:15 Hct 22.6 % (32.4-45.2) L 02/08/17 05:15 MCV 95.5 fl (80-96) 02/08/17 05:15 MCHC 33.3 g/dl (32.0-36.0) 02/08/17 05:15 RDW 15.7 % (11.6-15.6) H 02/08/17 05:15 Plt Count 360 K/MM3 (134-434) 02/08/17 05:15 MPV 9.3 fl (7.5-11.1) 02/08/17 05:15 CMP Sodium 132 mmol/L (136-145) L 02/08/17 05:15 Potassium 3.0 mmol/L (3.5-5.1) L 02/08/17 05:15 Chloride 93 mmol/L (98-107) L 02/08/17 05:15 Carbon Dioxide 27 mmol/L (21-32) 02/08/17 05:15 Anion Gap 12 (8-16) 02/08/17 05:15 BUN 60 mg/dL (7-18) H 02/08/17 05:15 Creatinine 2.4 mg/dL (0.55-1.02) H 02/08/17 05:15 Creat Clearance w eGFR 19.33 (>60) 02/08/17 05:15 Random Glucose 97 mg/dL (74-106) 02/08/17 05:15 Calcium 7.3 mg/dL (8.5-10.1) L 02/08/17 05:15 Total Bilirubin 0.7 mg/dL (0.2-1.0) D 02/08/17 05:15 AST 22 U/L (15-37) 02/08/17 05:15 ALT 8 U/L (12-78) L 02/08/17 05:15 Alkaline Phosphatase 131 U/L (45-117) H 02/08/17 05:15 Total Protein 4.7 g/dl (6.4-8.2) L 02/08/17 05:15 Albumin 1.6 g/dl (3.4-5.0) L D 02/08/17 05:15 CARDIAC ENZYMES Creatine Kinase 46 IU/L (26-192) 01/15/17 05:45 Troponin I 0.88 ng/ml (0.00-0.05) H* 01/15/17 05:45 Microbiology 01/31/17 11:08 Abscess Gram Stain - Final 01/31/17 11:08 Abscess Body Fluid Culture - Final Escherichia Coli Enterococcus Faecium 01/31/17 11:08 Abscess Anaerobic Culture - Final Prevotella Melaninogenica Prevotella Melaninogenica#2 01/30/17 12:00 Stool Clostridium difficile Antigen (CHARLIE) - Final 01/30/17 12:00 Stool Clostridium difficile Toxin Assay - Final 01/19/17 18:30 Abscess Gram Stain - Final 01/19/17 18:30 Abscess Body Fluid Culture - Final Escherichia Coli Streptococcus Viridans 01/19/17 18:30 Abscess Anaerobic Culture - Final Anaero Spore Forming Gp Abrahan 01/09/17 21:05 Peritoneal Fluid Gram Stain - Final 01/09/17 21:05 Peritoneal Fluid Body Fluid Culture - Final Escherichia Coli 01/09/17 21:05 Peritoneal Fluid Anaerobic Culture - Final NO ANAEROBES WERE ISOLATED 01/09/17 15:13 Urine - Urine - Catheterized Urine Culture - Final NO GROWTH OBTAINED ASSESSMENT AND PLAN: Acute Hypoxic Respiratory Failure Perforated Diverticulitis s/p Sigmoid Resection/Colostomy 01/09 Intra-abdominal Abscess Acute on Chronic Systolic Heart Failure Acute Kidney Injury Volume Overload h/o DVT/PE Atrial Fibrillation Hyponatremia - continue antibiotics - monitor drain output, still with pus - continue dobutamine, lasix gtts in attempt to get negative fluid balance - HD as per Nephrology, likely needs daily for awhile - monitor urine output, creatinine - taper FiO2, PEEP to keep SpO2 >90% - hold A/c given blood in colostomy, restart when resolves - daily awakening to assess mental status - PS wean as tolerated - continue ICU monitoring - poor prognosis, ongoing discussions with family Carmen SY Pulm/CCM CCT: 35m
[2017-02-08] MEDS ORDERED: POTASSIUM CHLORIDE ORAL LIQUID 20 MEQ/15 ML PO ONE (09:42)
[2017-02-08] MEDS: AMPICILLIN - 2 GM in SODIUM CHLORIDE 100 ML IVPB SCH ×2 (10:02→22:26)
[2017-02-08] MEDS: BACITRACIN 15 GM TUBE TOPICAL OINTMENT TP SCH ×2 (10:02→22:27)
[2017-02-08] MEDS: FLUCONAZOLE 200 MG/D5W 100 ML IVPB SCH (10:03)
[2017-02-08] MEDS: PROPOFOL 100 ML IVPB SCH (10:03)
[2017-02-08] MEDS: MIDODRINE HCL 5 MG TABLET PO SCH ×3 (10:04→17:52)
[2017-02-08] MEDS: FAMOTIDINE 20 MG/50 ML IVPB 50 ML IVPB SCH ×2 (10:04→22:28)
[2017-02-08] MEDS: COLLAGENASE CLOSTRIDIUM HIST. 30 GRAMS TUBE TP SCH ×2 (10:05→22:28)
--- NOTE | 2017-02-08 13:32 | PN ---
Progress Note, Physician History of Present Illness: continues to be critical wound still with exudate being dialysed as needed - Current Medication List Current Medications: Active Medications Acetaminophen (Ofirmev Injection -) 1,000 mg IVPB Q6H PRN PRN Reason: FEVER Last Admin: 01/24/17 16:32 Dose: 1,000 mg Albuterol/Ipratropium (Duoneb -) 1 amp NEB QIDR [facility]ID Last Admin: 02/08/17 11:15 Dose: 1 amp Bacitracin (Bacitracin -) 1 applic TP BID [facility] Last Admin: 02/08/17 10:02 Dose: 1 applic Chlorhexidine Gluconate (Hibiclens For Decolonization -) 1 applic TP HS [facility] Last Admin: 02/07/17 21:20 Dose: 1 applic Collagenase (Santyl -) 1 applic TP BID [facility] Last Admin: 02/08/17 10:05 Dose: 1 applic Heparin Sodium (Porcine) (Heparin -) 1,000 unit IVPUSH PRN PRN PRN Reason: Heparin Last Admin: 01/28/17 09:19 Dose: 1,000 unit Heparin Sodium (Porcine) (Heparin -) 5,000 unit IVPUSH PRN PRN PRN Reason: Heparin Last Admin: 02/06/17 18:04 Dose: 5,000 unit Heparin Sodium (Porcine) (Heparin -) 1,000 unit IVPUSH PRN PRN PRN Reason: Heparin Heparin Sodium (Porcine) (Heparin -) 5,000 unit IVPUSH PRN PRN PRN Reason: Heparin Famotidine/Sodium Chloride (Pepcid 20 Mg Premixed Ivpb -) 50 mls @ 100 mls/hr IVPB BID [facility] Last Admin: 02/08/17 10:04 Dose: 100 mls/hr Fluconazole (Diflucan 200 Mg/D5w Premixed Ivpb -) 100 mls @ 100 mls/hr IVPB DAILY [facility] Last Admin: 02/08/17 10:03 Dose: 100 mls/hr Meropenem 1 gm/ Dextrose 100 mls @ 100 mls/hr IVPB BID@0500,1700 DAVID PRN Reason: Protocol Last Admin: 02/08/17 04:06 Dose: 100 mls/hr Propofol (Diprivan -) 100 mls @ 3.486 mls/hr IVPB TITR DAVID; 5 MCG/KG/MIN PRN Reason: Protocol Last Admin: 02/08/17 10:03 Dose: 3.486 mls/hr Heparin Sodium (Porcine) 25, (000 unit/ Sodium Chloride) 500 mls @ 20 mls/hr IV TITR DAVID; 1,000 UNIT/HR PRN Reason: Protocol Last Admin: 02/07/17 20:57 Dose: Not Given Ampicillin Sodium 2 gm/ Sodium (Chloride) 100 mls @ 200 mls/hr IVPB BID [facility] Last Admin: 02/08/17 10:02 Dose: 200 mls/hr Phenylephrine HCl 20,000 mcg/ (Sodium Chloride) 250 mls @ 75 mls/hr IVPB ASDIR DAVID; 100 MCG/MIN PRN Reason: Protocol Last Admin: 02/07/17 18:41 Dose: 75 mls/hr Metoprolol Tartrate (Lopressor Injection -) 5 mg IVPB Q8H-IV [facility] Last Admin: 02/08/17 10:03 Dose: Not Given Midodrine (Proamatine -) 5 mg PO TID-MID [facility] Last Admin: 02/08/17 10:04 Dose: 5 mg Sevelamer Carbonate (Renvela Powder Packet -) 1.6 gm NGT TIDCM [facility] Last Admin: 02/08/17 08:38 Dose: 1.6 gm - Objective Vital Signs: Vital Signs Temperature 100.5 F H 02/08/17 10:19 Pulse Rate 86 02/08/17 13:27 Respiratory Rate 18 02/08/17 13:27 Blood Pressure 99/61 02/08/17 13:27 O2 Sat by Pulse Oximetry (%) 92 L 02/08/17 10:00 Constitutional: Yes: Other Cardiovascular: Yes: S1, S2 Respiratory: Yes: Mechanically Ventilated, Other (on trach) Gastrointestinal: Yes: Soft, Other (wound) Musculoskeletal: Yes: Other Extremities: Yes: Other Edema: LLE: 3+, RLE: 3+ Neurological: Yes: Other Psychiatric: Yes: Other Labs: CBC, BMP 02/08/17 05:15 02/08/17 05:15 INR, PTT INR 1.12 (0.82-1.09) 02/05/17 06:05 Assessment/Plan 81 y/o old with multiple medical problems with perforated bowel post op Perforated bowel Peritonitis Sepsis s/p ex-lap with sigmoid resection, colostomy Resolving JG Lactic acidosis AF h/o DVT/PE septic shock plan continue current management continue abx nutrition rest as per primary dialysis as planned monitor wbc dialysis as needed cc tim40 min
[2017-02-08] MEDS: PHENYLEPHRINE HCL 20,000 MCG in SODIUM CHLORIDE 248 ML IVPB SCH (13:54)
--- NOTE | 2017-02-08 14:33 | PN ---
Progress Note, Physician Chief Complaint: Intubated for respiratory failure, s/p trach and ultrafiltration yesterday, History of Present Illness: 81 yrs old admitted with c/o abd pain, nausea and vomiting with sepsis secondary to perforated sigmoid diverticulitis underwent explanatory laprotomy , sigmoid colon resection and colostomy on 01/09/2017 ,underwent IR guide aspiration of abscess today intubated for respiratory failure. on 01/20/2017 s/p trach and - Current Medication List Current Medications: Active Medications Acetaminophen (Ofirmev Injection -) 1,000 mg IVPB Q6H PRN PRN Reason: FEVER Last Admin: 01/24/17 16:32 Dose: 1,000 mg Albuterol/Ipratropium (Duoneb -) 1 amp NEB QIDR [facility] Last Admin: 02/08/17 11:15 Dose: 1 amp Bacitracin (Bacitracin -) 1 applic TP BID [facility] Last Admin: 02/08/17 10:02 Dose: 1 applic Chlorhexidine Gluconate (Hibiclens For Decolonization -) 1 applic TP HS [facility] Last Admin: 02/07/17 21:20 Dose: 1 applic Collagenase (Santyl -) 1 applic TP BID [facility] Last Admin: 02/08/17 10:05 Dose: 1 applic Heparin Sodium (Porcine) (Heparin -) 1,000 unit IVPUSH PRN PRN PRN Reason: Heparin Last Admin: 01/28/17 09:19 Dose: 1,000 unit Heparin Sodium (Porcine) (Heparin -) 5,000 unit IVPUSH PRN PRN PRN Reason: Heparin Last Admin: 02/06/17 18:04 Dose: 5,000 unit Heparin Sodium (Porcine) (Heparin -) 1,000 unit IVPUSH PRN PRN PRN Reason: Heparin Heparin Sodium (Porcine) (Heparin -) 5,000 unit IVPUSH PRN PRN PRN Reason: Heparin Famotidine/Sodium Chloride (Pepcid 20 Mg Premixed Ivpb -) 50 mls @ 100 mls/hr IVPB BID [facility] Last Admin: 02/08/17 10:04 Dose: 100 mls/hr Fluconazole (Diflucan 200 Mg/D5w Premixed Ivpb -) 100 mls @ 100 mls/hr IVPB DAILY [facility] Last Admin: 02/08/17 10:03 Dose: 100 mls/hr Meropenem 1 gm/ Dextrose 100 mls @ 100 mls/hr IVPB BID@0500,1700 DAVID PRN Reason: Protocol Last Admin: 02/08/17 04:06 Dose: 100 mls/hr Propofol (Diprivan -) 100 mls @ 3.486 mls/hr IVPB TITR DAVID; 5 MCG/KG/MIN PRN Reason: Protocol Last Admin: 02/08/17 10:03 Dose: 3.486 mls/hr Heparin Sodium (Porcine) 25, (000 unit/ Sodium Chloride) 500 mls @ 20 mls/hr IV TITR DAVID; 1,000 UNIT/HR PRN Reason: Protocol Last Admin: 02/07/17 20:57 Dose: Not Given Ampicillin Sodium 2 gm/ Sodium (Chloride) 100 mls @ 200 mls/hr IVPB BID [facility] Last Admin: 02/08/17 10:02 Dose: 200 mls/hr Phenylephrine HCl 20,000 mcg/ (Sodium Chloride) 250 mls @ 75 mls/hr IVPB ASDIR DAVID; 100 MCG/MIN PRN Reason: Protocol Last Admin: 02/08/17 13:54 Dose: 37.5 mls/hr Metoprolol Tartrate (Lopressor Injection -) 5 mg IVPB Q8H-IV [facility] Last Admin: 02/08/17 10:03 Dose: Not Given Midodrine (Proamatine -) 5 mg PO TID-MID [facility] Last Admin: 02/08/17 13:53 Dose: 5 mg Sevelamer Carbonate (Renvela Powder Packet -) 1.6 gm NGT TIDCM [facility] Last Admin: 02/08/17 13:54 Dose: 1.6 gm - Objective Vital Signs: Vital Signs Temperature 100.5 F H 02/08/17 10:19 Pulse Rate 88 02/08/17 14:04 Respiratory Rate 15 02/08/17 14:16 Blood Pressure 117/74 02/08/17 14:04 O2 Sat by Pulse Oximetry (%) 92 L 02/08/17 10:00 General: Elderly F s/p intubated , unresponsive, not responding to verbal command. HEENT: ET tube at place, MM moist, PERRLA, NECK; NO NVD, No Bruit, Carotids + CHEST: B/L equal AE CVS: S1 S2 R no m/g/r ABD: S/p surgery, colostomy beg at place, mild distention, BS+ EXT: + edema feet, no calf tenderness, Pulses + L[employer]: no interval changes Labs: CBC, BMP 02/08/17 05:15 02/08/17 05:15 INR, PTT INR 1.12 (0.82-1.09) 02/05/17 06:05 Problem List - Problems (1) Diverticulitis of large intestine with perforation and abscess without bleeding Code(s): K57.20 - DVTRCLI OF LG INT W PERFORATION AND ABSCESS W/O BLEEDING (2) Left ventricular systolic dysfunction Code(s): I51.9 - HEART DISEASE, UNSPECIFIED (3) Respiratory failure Code(s): J96.90 - RESPIRATORY FAILURE, UNSP, UNSP W HYPOXIA OR HYPERCAPNIA Qualifiers: Qualified Code(s): J96.01 - Acute respiratory failure with hypoxia (4) Abdominal abscess Code(s): K65.1 - PERITONEAL ABSCESS (5) Acute renal failure (ARF) Code(s): N17.9 - ACUTE KIDNEY FAILURE, UNSPECIFIED
[2017-02-08] MEDS: ACETAMINOPHEN 1000 MG/100 ML VIAL (NON FORMULARY) IVPB PRN (15:35)
[2017-02-08] MEDS: HEPARIN - 25,000 UNIT in SODIUM CHLORIDE 495 ML IV SCH (19:00)
[2017-02-08] MEDS: CHLORHEXIDINE GLUCONATE 4% CLEANSER FOR DECOLONIZATION TP SCH (22:27)
[2017-02-09] MEDS: PHENYLEPHRINE HCL 20,000 MCG in SODIUM CHLORIDE 248 ML IVPB SCH (01:00)
[2017-02-09] MEDS: METOPROLOL TARTRATE 5 MG/5 ML VIAL IVPB SCH ×3 (02:00→19:13)
[2017-02-09] MEDS: MEROPENEM 1 GM in DEXTROSE 5%-WATER - 100 ML IVPB SCH ×2 (05:50→17:18)
[2017-02-09 05:52] LABS: MCH 31.2 pg (25.7-33.7); MCHC 32.6 g/dl (32.0-36.0); PLATELET COUNT 418 K/MM3 (134-434); WHITE BLOOD COUNT 23.2 K/mm3 (4.0-10.0)
[2017-02-09] MEDS: ALBUTEROL SO4 2.5/IPRATROPIUM 0.5 INH SOL 3 ML VIAL.NEB. NEB SCH ×3 (06:29→17:27)
[2017-02-09] MEDS: SEVELAMER CARBONATE 0.8 GM POWDER PACKET NGT SCH ×3 (08:29→17:18)
[2017-02-09 08:48] LABS: METAMYELOCYTE 2 % (0-2); MYELOCYTE 3 % (0-2); TOTAL CELLS COUNTED 100
[2017-02-09 08:52] LABS: ANISOCYTOSIS 1+; HYPOCHROMIA 1+; MACROCYTOSIS 1+; POLYCHROMASIA 1+
[2017-02-09] MEDS: BACITRACIN 15 GM TUBE TOPICAL OINTMENT TP SCH ×2 (08:59→21:49)
[2017-02-09] MEDS: FLUCONAZOLE 200 MG/D5W 100 ML IVPB SCH (08:59)
[2017-02-09] MEDS: FAMOTIDINE 20 MG/50 ML IVPB 50 ML IVPB SCH ×2 (09:00→21:49)
[2017-02-09] MEDS: COLLAGENASE CLOSTRIDIUM HIST. 30 GRAMS TUBE TP SCH ×2 (09:00→21:50)
[2017-02-09 09:25] LABS: ALBUMIN 1.6 g/dl (3.4-5.0); ANION GAP 13 (8-16); BILIRUBIN,TOTAL 0.5 mg/dL (0.2-1.0); CALCIUM 7.9 mg/dL (8.5-10.1); CO2 25 mmol/L (21-32); CREATININE 2.8 mg/dL (0.55-1.02); GLUCOSE,RANDOM 118 mg/dL (74-106); PHOSPHOROUS 5.9 mg/dL (2.5-4.9); SGOT/AST 39 U/L (15-37); SGPT/ALT 12 U/L (12-78); TOT PROT 5.2 g/dl (6.4-8.2)
[2017-02-09 09:26] LABS: ALK PHOS 138 U/L (45-117)
--- NOTE | 2017-02-09 09:34 | PN ---
Physical Exam: SUBJECTIVE: Patient seen and examined in ICU. The pt is on mechanical ventilation, nonverbal. Overnight Tmax 101.1 F. OBJECTIVE: Vital Signs Period Temp Pulse Resp BP Sys/Riley Pulse Ox Last 24 Hr 100.2 F-101.1 F 84-100 14-23 88-117/43-80 92-94 GENERAL: The patient is nonverbal, on mech ventilation, not following commands. HEAD: Normal with no signs of trauma. EYES: PERRL, extraocular movements intact not assessed, conjunctiva clear. ENT: oropharynx clear without exudates, moist mucous membranes. NECK: Trachea midline, full range of motion, supple. LUNGS: Breath sounds equal, clear to auscultation bilaterally, no wheezes, no crackles, no accessory muscle use. HEART: Regular rate and rhythm, S1, S2 without murmur, rub or gallop. ABDOMEN: Soft, nontender, nondistended, normoactive bowel sounds, no guarding, no rebound, no hepatosplenomegaly, no masses. EXTREMITIES: 2+ pulses, warm, well-perfused, no edema. NEUROLOGICAL: Cranial nerves II through XII grossly intact. Normal speech, gait not observed. PSYCH: Normal mood, normal affect. SKIN: Warm, dry, normal turgor, no rashes or lesions noted Laboratory Results - last 24 hr 02/06/17 02/09/17 02/09/17 15:30 05:30 05:30 WBC 23.2 H RBC 2.64 L Hgb 8.2 L Hct 25.3 L MCV 96.0 MCH 31.2 MCHC 32.6 RDW 16.0 H Plt Count 418 MPV 9.0 Total Counted 100 Neutrophils % (Manual) 89 H Lymphocytes % (Manual) 4 L Monocytes % (Manual) 2 L Myelocytes % (Man) 3 H Hypochromia 1+ Polychromasia 1+ Basophilic Stippling 2+ Anisocytosis 1+ Macrocytosis 1+ PTT (Actin FS) 33.7 Sodium Potassium Chloride Carbon Dioxide Anion Gap BUN Creatinine Creat Clearance w eGFR Random Glucose Calcium Phosphorus Total Bilirubin AST ALT Alkaline Phosphatase Total Protein Albumin Hepatitis A Ab Total Negative Hep Bs Antigen Negative Hep Bs Antibody Non reactive Hep B Core Total Ab Negative Hepatitis C Antibody <0.1 02/09/17 05:30 WBC RBC Hgb Hct MCV MCH MCHC RDW Plt Count MPV Total Counted Neutrophils % (Manual) Lymphocytes % (Manual) Monocytes % (Manual) Myelocytes % (Man) Hypochromia Polychromasia Basophilic Stippling Anisocytosis Macrocytosis PTT (Actin FS) Sodium 133 L Potassium 3.5 Chloride 95 L Carbon Dioxide 25 Anion Gap 13 BUN 63 H Creatinine 2.8 H Creat Clearance w eGFR 16.18 Random Glucose 118 H D Calcium 7.9 L Phosphorus 5.9 H Total Bilirubin 0.5 D AST 39 H D ALT 12 D Alkaline Phosphatase 138 H Total Protein 5.2 L Albumin 1.6 L Hepatitis A Ab Total Hep Bs Antigen Hep Bs Antibody Hep B Core Total Ab Hepatitis C Antibody Active Medications Generic Name Dose Route Start Last Admin Trade Name Freq PRN Reason Stop Dose Admin Acetaminophen 1,000 mg 01/11/17 18:03 02/08/17 15:35 Ofirmev Injection - IVPB 1,000 mg Q6H PRN Administration FEVER Albuterol/Ipratropium 1 amp 01/11/17 00:00 02/09/17 06:29 Duoneb - NEB 1 amp QIDR DAVID Administration Bacitracin 1 applic 01/30/17 12:00 02/09/17 08:59 Bacitracin - TP 1 applic BID DAVID Administration Chlorhexidine Gluconate 1 applic 01/20/17 22:00 02/08/17 22:27 Hibiclens For Decolonization - TP 1 applic HS DAVID Administration Collagenase 1 applic 02/03/17 10:00 02/09/17 09:00 Santyl - TP 1 applic BID DAVID Administration Heparin Sodium (Porcine) 1,000 unit 01/12/17 16:52 01/28/17 09:19 Heparin - IVPUSH 1,000 unit PRN PRN Administration Heparin Heparin Sodium (Porcine) 5,000 unit 01/12/17 16:52 02/06/17 18:04 Heparin - IVPUSH 5,000 unit PRN PRN Administration Heparin Heparin Sodium (Porcine) 1,000 unit 02/05/17 13:41 Heparin - IVPUSH PRN PRN Heparin Heparin Sodium (Porcine) 5,000 unit 02/05/17 13:41 Heparin - IVPUSH PRN PRN Heparin Famotidine/Sodium Chloride 50 mls @ 100 mls/hr 01/10/17 10:00 02/09/17 09:00 Pepcid 20 Mg Premixed Ivpb - IVPB 100 mls/hr BID DAVID Administration Fluconazole 100 mls @ 100 mls/hr 01/11/17 13:00 02/09/17 08:59 Diflucan 200 Mg/D5w Premixed Ivpb - IVPB 100 mls/hr DAILY DAVID Administration Meropenem 1 gm/ Dextrose 100 mls @ 100 mls/hr 01/15/17 17:00 02/09/17 05:50 IVPB 100 mls/hr BID@0500,1700 DAVID Administration Protocol Propofol 100 mls @ 3.486 mls/hr 01/24/17 10:00 02/08/17 10:03 Diprivan - IVPB 3.486 mls/hr TITR DAVID Administration Protocol 5 MCG/KG/MIN Heparin Sodium (Porcine) 25, 500 mls @ 20 mls/hr 02/05/17 19:00 02/08/17 19:00 000 unit/ Sodium Chloride IV Not Given TITR DAVID Protocol 1,000 UNIT/HR Ampicillin Sodium 2 gm/ Sodium 100 mls @ 200 mls/hr 02/06/17 22:00 02/08/17 22: 26 Chloride IVPB 200 mls/hr BID DAVID Administration Phenylephrine HCl 20,000 mcg/ 250 mls @ 75 mls/hr 02/07/17 12:00 02/09/17 01:00 Sodium Chloride IVPB 37.5 mls/hr ASDIR DAVID Administration Protocol 100 MCG/MIN Metoprolol Tartrate 5 mg 01/11/17 15:20 02/09/17 02:00 Lopressor Injection - IVPB Not Given Q8H-IV DAVID Midodrine 5 mg 02/07/17 14:00 02/08/17 17:52 Proamatine - PO 5 mg TID-MID DAVID Administration Sevelamer Carbonate 1.6 gm 02/05/17 17:30 02/09/17 08:29 Renvela Powder Packet - NGT 1.6 gm TIDCM DAVID Administration ASSESSMENT/PLAN:
[2017-02-09] MEDS ORDERED: NOREPINEPHRINE BITARTRATE 4 MG/4 ML ML IV ONE (09:45)
[2017-02-09] MEDS ORDERED: PT OWN MED DRAWER 7, Y5N ONE ×3 (10:48→21:08)
[2017-02-09] MEDS: MIDODRINE HCL 5 MG TABLET PO SCH ×2 (11:42→14:48)
[2017-02-09] MEDS: AMPICILLIN - 2 GM in SODIUM CHLORIDE 100 ML IVPB SCH ×2 (12:47→21:48)
[2017-02-09] MEDS ORDERED: NOREPINEPHRINE BITARTRATE 8,000 MCG in DEXTROSE 5%-WATER - 492 ML IV SCH (13:15)
--- NOTE | 2017-02-09 13:35 | PN ---
Teaching Attending Note Name of Resident: Meghan Pastor ATTENDING PHYSICIAN STATEMENT I saw and evaluated the patient. I reviewed the resident's note and discussed the case with the resident. I agree with the resident's findings and plan as documented. SUBJECTIVE: Pt seen and examined in the ICU. Remains vented, poorly responsive, sedation off since yesterday. Currently being dialyzed. On levophed and phenylephrine gtts. Persistently febrile. OBJECTIVE: Last Vital Signs Temp Pulse Resp BP Pulse Ox 100.4 F H 105 H 22 131/100 99 02/09/17 10:21 02/09/17 13:00 02/09/17 13:00 02/09/17 13:00 02/09/17 09:37 Intake & Output 02/06/17 02/07/17 02/08/17 02/09/17 23:59 23:59 23:59 23:59 Intake Total 1909.2 3538 2820 1070 Output Total 1270 1620 440 615 Balance 639.2 1918 2380 455 Weight 291 lb 3.69 oz 284 lb 3.574 oz 285 lb 285 lb 6.4 oz Gen: vented, poorly responsive Heart: tachycardic, irregular Lung: bilateral rhonchi Abd: soft, +ostomy with stool output, JAMES with purulent drainage, dressings dry Ext: + edema CBC, BMP 02/09/17 05:30 02/09/17 05:30 Active Medications Acetaminophen (Ofirmev Injection -) 1,000 mg IVPB Q6H PRN PRN Reason: FEVER Last Admin: 02/08/17 15:35 Dose: 1,000 mg Albuterol/Ipratropium (Duoneb -) 1 amp NEB QIDR [facility] Last Admin: 02/09/17 11:10 Dose: 1 amp Bacitracin (Bacitracin -) 1 applic TP BID [facility] Last Admin: 02/09/17 08:59 Dose: 1 applic Chlorhexidine Gluconate (Hibiclens For Decolonization -) 1 applic TP HS [facility] Last Admin: 02/08/17 22:27 Dose: 1 applic Collagenase (Santyl -) 1 applic TP BID DAVID Last Admin: 02/09/17 09:00 Dose: 1 applic Heparin Sodium (Porcine) (Heparin -) 1,000 unit IVPUSH PRN PRN PRN Reason: Heparin Last Admin: 01/28/17 09:19 Dose: 1,000 unit Heparin Sodium (Porcine) (Heparin -) 5,000 unit IVPUSH PRN PRN PRN Reason: Heparin Last Admin: 02/06/17 18:04 Dose: 5,000 unit Heparin Sodium (Porcine) (Heparin -) 1,000 unit IVPUSH PRN PRN PRN Reason: Heparin Heparin Sodium (Porcine) (Heparin -) 5,000 unit IVPUSH PRN PRN PRN Reason: Heparin Famotidine/Sodium Chloride (Pepcid 20 Mg Premixed Ivpb -) 50 mls @ 100 mls/hr IVPB BID DAVID Last Admin: 02/09/17 09:00 Dose: 100 mls/hr Fluconazole (Diflucan 200 Mg/D5w Premixed Ivpb -) 100 mls @ 100 mls/hr IVPB DAILY DAVID Last Admin: 02/09/17 08:59 Dose: 100 mls/hr Meropenem 1 gm/ Dextrose 100 mls @ 100 mls/hr IVPB BID@0500,1700 DAVID PRN Reason: Protocol Last Admin: 02/09/17 05:50 Dose: 100 mls/hr Propofol (Diprivan -) 100 mls @ 3.486 mls/hr IVPB TITR DAVID; 5 MCG/KG/MIN PRN Reason: Protocol Last Admin: 02/08/17 10:03 Dose: 3.486 mls/hr Heparin Sodium (Porcine) 25, (000 unit/ Sodium Chloride) 500 mls @ 20 mls/hr IV TITR DAVID; 1,000 UNIT/HR PRN Reason: Protocol Last Admin: 02/08/17 19:00 Dose: Not Given Ampicillin Sodium 2 gm/ Sodium (Chloride) 100 mls @ 200 mls/hr IVPB BID DAVID Last Admin: 02/09/17 12:47 Dose: 200 mls/hr Norepinephrine Bitartrate 8, (000 mcg/ Dextrose) 500 mls @ 15 mls/hr IV TITR DAVID; 4 MCG/MIN PRN Reason: Protocol Metoprolol Tartrate (Lopressor Injection -) 5 mg IVPB Q8H-IV DAVID Last Admin: 02/09/17 11:41 Dose: 5 mg Midodrine (Proamatine -) 5 mg PO TID-MID DAVID Last Admin: 02/09/17 11:42 Dose: 5 mg Sevelamer Carbonate (Renvela Powder Packet -) 1.[facility] Last Admin: 02/09/17 12:44 Dose: 1.6 gm ASSESSMENT AND PLAN: Acute Hypoxic Respiratory Failure Perforated Diverticulitis s/p Sigmoid Resection/Colostomy 01/09 Intra-abdominal Abscess Acute on Chronic Systolic Heart Failure Septic vs Cardiogenic Shock Acute Kidney Injury Volume Overload h/o DVT/PE Atrial Fibrillation Hyponatremia - continue antibiotics - monitor drain output - titrate levophed gtt to maintain MAP >65 - taper off phenylephrine gtt - HD per renal with ultrafiltration - monitor urine output, creatinine - taper FiO2, PEEP to keep SpO2 >90% - continue anticoagulation if no further bleeding - minimize sedation - spontaneous breathing trials as tolerated when mental status improved - enteral feeds - DVT/GI prophylaxis - continue ICU monitoring - poor prognosis, discussed with daughter at bedside - continue discussions regarding goals of care and advanced directives critical care time spent in reviewing chart, evaluating patient and formulating plan 38 min
--- NOTE | 2017-02-09 13:55 | PN ---
Progress Note, Physician History of Present Illness: continues to be critical wound still with exudate patient getting abx - Current Medication List Current Medications: Active Medications Acetaminophen (Ofirmev Injection -) 1,000 mg IVPB Q6H PRN PRN Reason: FEVER Last Admin: 02/08/17 15:35 Dose: 1,000 mg Albuterol/Ipratropium (Duoneb -) 1 amp NEB QIDR DAVID Last Admin: 02/09/17 11:10 Dose: 1 amp Bacitracin (Bacitracin -) 1 applic TP BID [facility] Last Admin: 02/09/17 08:59 Dose: 1 applic Chlorhexidine Gluconate (Hibiclens For Decolonization -) 1 applic TP HS [facility] Last Admin: 02/08/17 22:27 Dose: 1 applic Collagenase (Santyl -) 1 applic TP BID [facility] Last Admin: 02/09/17 09:00 Dose: 1 applic Heparin Sodium (Porcine) (Heparin -) 1,000 unit IVPUSH PRN PRN PRN Reason: Heparin Last Admin: 01/28/17 09:19 Dose: 1,000 unit Heparin Sodium (Porcine) (Heparin -) 5,000 unit IVPUSH PRN PRN PRN Reason: Heparin Last Admin: 02/06/17 18:04 Dose: 5,000 unit Heparin Sodium (Porcine) (Heparin -) 1,000 unit IVPUSH PRN PRN PRN Reason: Heparin Heparin Sodium (Porcine) (Heparin -) 5,000 unit IVPUSH PRN PRN PRN Reason: Heparin Famotidine/Sodium Chloride (Pepcid 20 Mg Premixed Ivpb -) 50 mls @ 100 mls/hr IVPB BID [facility] Last Admin: 02/09/17 09:00 Dose: 100 mls/hr Fluconazole (Diflucan 200 Mg/D5w Premixed Ivpb -) 100 mls @ 100 mls/hr IVPB DAILY [facility] Last Admin: 02/09/17 08:59 Dose: 100 mls/hr Meropenem 1 gm/ Dextrose 100 mls @ 100 mls/hr IVPB BID@0500,1700 DAVID PRN Reason: Protocol Last Admin: 02/09/17 05:50 Dose: 100 mls/hr Propofol (Diprivan -) 100 mls @ 3.486 mls/hr IVPB TITR DAVID; 5 MCG/KG/MIN PRN Reason: Protocol Last Admin: 02/08/17 10:03 Dose: 3.486 mls/hr Heparin Sodium (Porcine) 25, (000 unit/ Sodium Chloride) 500 mls @ 20 mls/hr IV TITR DAVID; 1,000 UNIT/HR PRN Reason: Protocol Last Admin: 02/08/17 19:00 Dose: Not Given Ampicillin Sodium 2 gm/ Sodium (Chloride) 100 mls @ 200 mls/hr IVPB BID [facility] Last Admin: 02/09/17 12:47 Dose: 200 mls/hr Norepinephrine Bitartrate 8, (000 mcg/ Dextrose) 500 mls @ 15 mls/hr IV TITR DAVID; 4 MCG/MIN PRN Reason: Protocol Metoprolol Tartrate (Lopressor Injection -) 5 mg IVPB Q8H-IV DAVID Last Admin: 02/09/17 11:41 Dose: 5 mg Midodrine (Proamatine -) 5 mg PO TID-MID [facility] Last Admin: 02/09/17 11:42 Dose: 5 mg Sevelamer Carbonate (Renvela Powder Packet -) 1.6 gm NGT TIDCM [facility] Last Admin: 02/09/17 12:44 Dose: 1.6 gm - Objective Vital Signs: Vital Signs Temperature 100.4 F H 02/09/17 10:21 Pulse Rate 105 H 02/09/17 13:00 Respiratory Rate 20 02/09/17 13:44 Blood Pressure 131/100 02/09/17 13:00 O2 Sat by Pulse Oximetry (%) 99 02/09/17 09:37 Constitutional: Yes: Calm, Other Respiratory: Yes: Mechanically Ventilated, Other (tracheostomy) Musculoskeletal: Yes: Other Extremities: Yes: Other (bilateral edema of the legs) Wound/Incision: Yes: Dressing Dry and Intact Neurological: Yes: Other Psychiatric: Yes: Other Labs: CBC, BMP 02/09/17 05:30 02/09/17 05:30 INR, PTT INR 1.12 (0.82-1.09) 02/05/17 06:05 Assessment/Plan 81 y/o old with multiple medical problems with perforated bowel post op Perforated bowel Peritonitis Sepsis s/p ex-lap with sigmoid resection, colostomy Resolving JG Lactic acidosis AF h/o DVT/PE septic shock plan continue current management continue abx nutrition rest as per primary dialysis as planned monitor wbc dialysis as needed cc tim40 min
--- NOTE | 2017-02-09 16:12 | PROC ---
<Shaheen Peres - Last Filed: 02/09/17 16:11> Central Line Insertion Indication: CVP Monitoring, Poor Venous Access Central Line: Triple Lumen Catheter Anesthesia: 1% Lidocaine Sterile Technique: Yes Ultrasound Guided Assistance: Yes Position: Left Subclavian Post Insertion: Yes: Chest X-Ray Ordered <Jeremias Garcia MD - Last Filed: 02/10/17 12:44> Procedure Note Procedure: I supervised and was present during the entire procedure. Jeremias Garcia MD
--- NOTE | 2017-02-09 16:32 | PN ---
Problem List - Problems (1) Perforated bowel Code(s): K63.1 - PERFORATION OF INTESTINE (NONTRAUMATIC) (2) Sepsis Code(s): A41.9 - SEPSIS, UNSPECIFIED ORGANISM Qualifiers: Qualified Code(s): A41.9 - Sepsis, unspecified organism (3) Acute renal failure (ARF) Code(s): N17.9 - ACUTE KIDNEY FAILURE, UNSPECIFIED (4) CKD (chronic kidney disease) Code(s): N18.9 - CHRONIC KIDNEY DISEASE, UNSPECIFIED (5) Hypertension Code(s): I10 - ESSENTIAL (PRIMARY) HYPERTENSION (6) Diverticulosis Code(s): K57.90 - DVRTCLOS OF INTEST, PART UNSP, W/O PERF OR ABSCESS W/O BLEED
[2017-02-09] MEDS ORDERED: HEPARIN NA (PORCINE) 5,000 UNITS/ML 1ML VIAL SQ ONE (17:00)
[2017-02-09] MEDS: ACETAMINOPHEN 1000 MG/100 ML VIAL (NON FORMULARY) IVPB PRN (17:17)
--- NOTE | 2017-02-09 18:01 | PN ---
Progress Note (short form) - Note Progress Note: Renal Follow up for JG Pt seen and examined in the ICU in the am during dialysis Goal UF is 3.5kg BP stable on Levophed gtt catheter with good flow Vital Signs Temperature 101.1 F H 02/09/17 16:00 Pulse Rate 113 H 02/09/17 14:07 Respiratory Rate 20 02/09/17 16:35 Blood Pressure 128/77 02/09/17 16:00 O2 Sat by Pulse Oximetry (%) 99 02/09/17 09:37 Intake & Output 02/06/17 02/07/17 02/08/17 02/09/17 23:59 23:59 23:59 23:59 Intake Total 1909.2 3538 2820 1070 Output Total 1270 1620 440 615 Balance 639.2 1918 2380 455 Weight 291 lb 3.69 oz 284 lb 3.574 oz 285 lb 285 lb 6.4 oz Gen: intubated on vent CVS: RRR Lungs: Dec BS throughout the lung dimas Abd: soft NT/ND Ext: 2+ edema upper ext and lower ext CBC, BMP 02/09/17 05:30 02/09/17 05:30 Laboratory Tests 02/09/17 05:30 Calcium 7.9 L Phosphorus 5.9 H Albumin 1.6 L Current Medications Acetaminophen (Ofirmev Injection -) 1,000 mg IVPB Q6H PRN PRN Reason: FEVER Last Admin: 02/09/17 17:17 Dose: 1,000 mg Albuterol/Ipratropium (Duoneb -) 1 amp NEB QIDR [facility] Last Admin: 02/09/17 17:27 Dose: 1 amp Bacitracin (Bacitracin -) 1 applic TP BID [facility] Last Admin: 02/09/17 08:59 Dose: 1 applic Chlorhexidine Gluconate (Hibiclens For Decolonization -) 1 applic TP HS [facility] Last Admin: 02/08/17 22:27 Dose: 1 applic Collagenase (Santyl -) 1 applic TP BID [facility] Last Admin: 02/09/17 09:00 Dose: 1 applic Heparin Sodium (Porcine) (Heparin -) 1,000 unit IVPUSH PRN PRN PRN Reason: Heparin Heparin Sodium (Porcine) (Heparin -) 5,000 unit IVPUSH PRN PRN PRN Reason: Heparin Famotidine/Sodium Chloride (Pepcid 20 Mg Premixed Ivpb -) 50 mls @ 100 mls/hr IVPB BID [facility] Last Admin: 02/09/17 09:00 Dose: 100 mls/hr Fluconazole (Diflucan 200 Mg/D5w Premixed Ivpb -) 100 mls @ 100 mls/hr IVPB DAILY [facility] Last Admin: 02/09/17 08:59 Dose: 100 mls/hr Meropenem 1 gm/ Dextrose 100 mls @ 100 mls/hr IVPB BID@0500,1700 DAVID PRN Reason: Protocol Last Admin: 02/09/17 17:18 Dose: 100 mls/hr Propofol (Diprivan -) 100 mls @ 3.486 mls/hr IVPB TITR DAVID; 5 MCG/KG/MIN PRN Reason: Protocol Last Admin: 02/08/17 10:03 Dose: 3.486 mls/hr Ampicillin Sodium 2 gm/ Sodium (Chloride) 100 mls @ 200 mls/hr IVPB BID [facility] Last Admin: 02/09/17 12:47 Dose: 200 mls/hr Norepinephrine Bitartrate 8, (000 mcg/ Dextrose) 500 mls @ 15 mls/hr IV TITR DAVID; 4 MCG/MIN PRN Reason: Protocol Last Admin: 02/09/17 14:03 Dose: 30 mls/hr Metoprolol Tartrate (Lopressor Injection -) 5 mg IVPB Q8H-IV [facility] Last Admin: 02/09/17 11:41 Dose: 5 mg Midodrine (Proamatine -) 5 mg PO TID-MID [facility] Last Admin: 02/09/17 14:48 Dose: 5 mg Sevelamer Carbonate (Renvela Powder Packet -) 1.6 gm NGT TIDCM [facility] Last Admin: 02/09/17 17:18 Dose: 1.6 gm A/P 81 year old woman with PMhx of CKD? (Atrophic Kidney seen on US which is a chronic finding), Diverticulosis, DVT/PE on Warfarin, Hypertension who presented with Abd pain and found to have perforated bowel with diverticulitis s /p bowel resection with colostomy with JG with Cr of 2. #Non-oliguric acute kidney failure with total body volume overload and respiratory failure put currently getting 3rd HD treatment willl do 1 hour of isolated UF and 3 hours dialysis will continue UF as tolerated Trend urine output dose all meds for eGFR < 10 #Sepsis/Shock/Perforated Abd viscus Continue ICU care Prognosis guarded Jair Medley DO Problem List - Problems (1) Perforated bowel Code(s): K63.1 - PERFORATION OF INTESTINE (NONTRAUMATIC) (2) Sepsis Code(s): A41.9 - SEPSIS, UNSPECIFIED ORGANISM Qualifiers: Qualified Code(s): A41.9 - Sepsis, unspecified organism (3) Acute renal failure (ARF) Code(s): N17.9 - ACUTE KIDNEY FAILURE, UNSPECIFIED (4) CKD (chronic kidney disease) Code(s): N18.9 - CHRONIC KIDNEY DISEASE, UNSPECIFIED (5) Hypertension Code(s): I10 - ESSENTIAL (PRIMARY) HYPERTENSION (6) Diverticulosis Code(s): K57.90 - DVRTCLOS OF INTEST, PART UNSP, W/O PERF OR ABSCESS W/O BLEED
[2017-02-09] MEDS: PROPOFOL 100 ML IVPB SCH (21:16)
[2017-02-09] MEDS: CHLORHEXIDINE GLUCONATE 4% CLEANSER FOR DECOLONIZATION TP SCH (21:49)
[2017-02-10] MEDS: ALBUTEROL SO4 2.5/IPRATROPIUM 0.5 INH SOL 3 ML VIAL.NEB. NEB SCH ×2 (00:01→06:04)
[2017-02-10] MEDS ORDERED: NOREPINEPHRINE BITARTRATE 4 MG/4 ML ML IV ONE (01:04)
[2017-02-10] MEDS: ACETAMINOPHEN 1000 MG/100 ML VIAL (NON FORMULARY) IVPB PRN ×2 (01:34→07:51)
[2017-02-10] MEDS: METOPROLOL TARTRATE 5 MG/5 ML VIAL IVPB SCH ×2 (01:34→10:14)
[2017-02-10] MEDS ORDERED: PT OWN MED DRAWER 7, Y5N ONE ×2 (05:55→07:49)
[2017-02-10] MEDS: MEROPENEM 1 GM in DEXTROSE 5%-WATER - 100 ML IVPB SCH (05:59)
[2017-02-10 06:47] LABS: MCH 31.8 pg (25.7-33.7); MCHC 32.2 g/dl (32.0-36.0); MEAN CELL VOLUME 98.8 fl (80-96); MEAN PLT VOLUME 9.2 fl (7.5-11.1); PLATELET COUNT 307 K/MM3 (134-434); RDW 16.3 % (11.6-15.6)
--- NOTE | 2017-02-10 06:54 | PN ---
Physical Exam: SUBJECTIVE: Patient seen and examined by me this AM - Remains sedated, intubated via trach. Subclavian line placed 02/10, in place with no bleeding or erythema - No further bleeding from ostomy site. Will restart heparin gtt today. - Phenylephrine gtt dc'ed. Now on Midodrine gtt 5mg. - White count uptrending to 30. HgB critically low at 6.2 - Family decision yesterday evening to withdraw all support/DNR. Will discuss on rounds in AM. PM: -Spoke with daughter about transfusing blood for critical anemia. Daughter refused any blood transfusions. Family does not want any further life sustaining care and complete withdrawal of current care. DNR order was signed. - Spoke with Dr. León, covering for Dr. Pitts and informed him of family's decision. Dr. León agreed with decision. - Discussion with palliative care team regarding protocol and family wishes for withdrawal of care. Pt will received morphine gtt, ativan for agitation and acetaminophen for fever. All other care will be terminated. OBJECTIVE: Vital Signs Period Temp Pulse Resp BP Sys/Riley Pulse Ox Last 24 Hr 100.3 F-102.2 F 89-134 14-30 79-131/45-100 97-99 Intake & Output 02/07/17 02/08/17 02/09/17 02/10/17 23:59 23:59 23:59 23:59 Intake Total 3538 2820 2629 1056.2 Output Total 1620 440 695 0 Balance 1918 2380 1934 1056.2 Weight 128.922 kg 129.274 kg 129.455 kg 131.5 kg GENERAL: The patient is sedated and intubated. Obese with significant anasarca. HEAD: Normal with no signs of trauma. EYES: PERRL, No pallor or icterus. ENT: Ears normal, moist mucous membranes. Dried blood at nares, NG tube in place. Small lingual petechiae NECK: Neck supple, tracheostomy in place LUNGS: B/L mechanical breath sounds, bibasilar crackles HEART: Regular rate and rhythm, S1, S2 ABDOMEN: Ostomy in place, no blood, draining feculent fluid. Soft, nontender, nondistended, normoactive bowel sounds, no guarding, EXTREMITIES: 2+ pulses, warm, well-perfused, B/L 2+ pitting edema in all four extremities PSYCH: Sedated Laboratory Results - last 24 hr 02/09/17 02/09/17 02/10/17 05:30 05:30 06:10 WBC 23.2 H 30.4 H* D RBC 2.64 L 1.95 L D Hgb 8.2 L 6.2 L* D Hct 25.3 L 19.2 L D MCV 96.0 98.8 H MCH 31.2 31.8 MCHC 32.6 32.2 RDW 16.0 H 16.3 H Plt Count 418 307 D MPV 9.0 9.2 Total Counted 100 Neutrophils % Y Neutrophils % (Manual) 89 H Lymphocytes % Y Lymphocytes % (Manual) 4 L Monocytes % (Manual) 2 L Myelocytes % (Man) 3 H Hypochromia 1+ Polychromasia 1+ Basophilic Stippling 2+ Anisocytosis 1+ Macrocytosis 1+ Sodium 133 L Potassium 3.5 Chloride 95 L Carbon Dioxide 25 Anion Gap 13 BUN 63 H Creatinine 2.8 H Creat Clearance w eGFR 16.18 Random Glucose 118 H D Calcium 7.9 L Phosphorus 5.9 H Total Bilirubin 0.5 D AST 39 H D ALT 12 D Alkaline Phosphatase 138 H Total Protein 5.2 L Albumin 1.6 L Active Medications Generic Name Dose Route Start Last Admin Trade Name Festusq PRN Reason Stop Dose Admin Acetaminophen 1,000 mg 01/11/17 18:03 02/10/17 01:34 Ofirmev Injection - IVPB 1,000 mg Q6H PRN Administration FEVER Albuterol/Ipratropium 1 amp 01/11/17 00:00 02/10/17 06:04 Duoneb - NEB 1 amp QIDR DAVID Administration Bacitracin 1 applic 01/30/17 12:00 02/09/17 21:49 Bacitracin - TP 1 applic BID DAVID Administration Chlorhexidine Gluconate 1 applic 01/20/17 22:00 02/09/17 21:49 Hibiclens For Decolonization - TP 1 applic HS DAVID Administration Collagenase 1 applic 02/03/17 10:00 02/09/17 21:50 Santyl - TP 1 applic BID DAVID Administration Heparin Sodium (Porcine) 1,000 unit 02/05/17 13:41 Heparin - IVPUSH PRN PRN Heparin Heparin Sodium (Porcine) 5,000 unit 02/05/17 13:41 Heparin - IVPUSH PRN PRN Heparin Famotidine/Sodium Chloride 50 mls @ 100 mls/hr 01/10/17 10:00 02/09/17 21:49 Pepcid 20 Mg Premixed Ivpb - IVPB 100 mls/hr BID DAVID Administration Fluconazole 100 mls @ 100 mls/hr 01/11/17 13:00 02/09/17 08:59 Diflucan 200 Mg/D5w Premixed Ivpb - IVPB 100 mls/hr DAILY DAVID Administration Meropenem 1 gm/ Dextrose 100 mls @ 100 mls/hr 01/15/17 17:00 02/10/17 05:59 IVPB 100 mls/hr BID@0500,1700 DAVID Administration Protocol Propofol 100 mls @ 3.486 mls/hr 01/24/17 10:00 02/09/17 21:16 Diprivan - IVPB 3.486 mls/hr TITR DAVID Administration Protocol 5 MCG/KG/MIN Ampicillin Sodium 2 gm/ Sodium 100 mls @ 200 mls/hr 02/06/17 22:00 02/09/17 21: 48 Chloride IVPB 200 mls/hr BID DAVID Administration Norepinephrine Bitartrate 8, 500 mls @ 15 mls/hr 02/09/17 13:15 02/10/17 06:03 000 mcg/ Dextrose IV 6 mcg/min TITR DAVID Titration Protocol 4 MCG/MIN Metoprolol Tartrate 5 mg 01/11/17 15:20 02/10/17 01:34 Lopressor Injection - IVPB Not Given Q8H-IV DAVID Midodrine 5 mg 02/07/17 14:00 02/09/17 14:48 Proamatine - PO 5 mg TID-MID DAVID Administration Sevelamer Carbonate 1.6 gm 02/05/17 17:30 02/09/17 17:18 Renvela Powder Packet - NGT 1.6 gm TIDCM DAVID Administration CXR (02/09) - R IJ and L IJ in place. L subclavian line in place with tip at atrio-caval junction. ASSESSMENT/PLAN: Patient is 81 year old female with a history of diverticulosis presents to the ED with perforated diverticulitis now post op day 5 s/p sigmoid resection with colostomy. L subclavian line placed yesterday, confirmed by CXR. White count uptrending to 30. Phenylephrine gtt dc'ed and midodrine gtt started, good MAPs. HgB critically low at 6.2. Discussion between family and ICU team, as well as palliative care team this morning with conclusion for complete withdrawal of care. Dr. León, who is covering for Dr. Sawyer, was contacted and informed of the family decision and agreed with plan to withdraw all care. Morphine gtt for pain control initiated and pastoral care was contacted and visited with patient and family. #Neuro Morphine gtt for pain control Morphine 4mg bolus for pain control Ativan 1mg IV PRN for agitation #Cardiac d/c all gtts and meds #Pulm trach collar 40% O2 for respiratory comfort #ID D/c Abx #Renal D/c HD and labs D/c fluids #Heme D/c heparin gtt #GI D/c feeds and drain care #Endocrine none #MSK none #FEN Fluids: None Eletrolytes: None Nutrition: D/c feeds Dispo: - Comfort measures only. Removal of all care. Palliative care following. Pastoral care has seen pt and family. Pastor Puentes, PGY1 Plan discussed with attending, Dr. Garcia Visit type - Emergency Visit Emergency Visit: No - New Patient This patient is new to me today: Yes Date on this admission: 02/10/17 - Critical Care Critical Care patient: Yes Total Critical Care Time (in minutes): 35 Critical Care Statement: The care of this patient involved high complexity decision making to prevent further life threatening deterioration of the patient 's condition and/or to evaluate & treat vital organ system(s) failure or risk of failure.
[2017-02-10 07:12] LABS: WHITE BLOOD COUNT 30.4 K/mm3 (4.0-10.0)
[2017-02-10 07:16] LABS: ALBUMIN 1.3 g/dl (3.4-5.0); ANION GAP 13 (8-16); CALCIUM 7.2 mg/dL (8.5-10.1); CO2 25 mmol/L (21-32); MAGNESIUM 2.3 mg/dL (1.8-2.4)
[2017-02-10 07:23] LABS: ALK PHOS 95 U/L (45-117); BILIRUBIN,TOTAL 0.6 mg/dL (0.2-1.0); CREATININE 2.8 mg/dL (0.55-1.02); GLUCOSE,RANDOM 130 mg/dL (74-106); PHOSPHOROUS 5.7 mg/dL (2.5-4.9); SGOT/AST 65 U/L (15-37); SGPT/ALT 18 U/L (12-78); TOT PROT 4.4 g/dl (6.4-8.2)
[2017-02-10] MEDS: AMPICILLIN - 2 GM in SODIUM CHLORIDE 100 ML IVPB SCH (08:57)
[2017-02-10] MEDS: SEVELAMER CARBONATE 0.8 GM POWDER PACKET NGT SCH (08:57)
[2017-02-10] MEDS: COLLAGENASE CLOSTRIDIUM HIST. 30 GRAMS TUBE TP SCH (08:58)
[2017-02-10] MEDS: BACITRACIN 15 GM TUBE TOPICAL OINTMENT TP SCH (09:26)
[2017-02-10 09:29] LABS: ANISOCYTOSIS 1+; HYPOCHROMIA 1+; MACROCYTOSIS 4+; METAMYELOCYTE 4 % (0-2); MYELOCYTE 1 % (0-2); NUCLEATED RED BLOOD CELL 3 % (0-0); PLATELET ESTIMATE ADEQUATE (NORMAL); POLYCHROMASIA 3+; TOTAL CELLS COUNTED 100
--- NOTE | 2017-02-10 09:33 | PN ---
Progress Note, Physician Chief Complaint: Intubated for respiratory failure, s/p trach and ultrafiltration yesterday, family decided for comfort care History of Present Illness: 81 yrs old admitted with c/o abd pain, nausea and vomiting with sepsis secondary to perforated sigmoid diverticulitis underwent explanatory laprotomy , sigmoid colon resection and colostomy on 01/09/2017 ,underwent IR guide aspiration of abscess today intubated for respiratory failure. on 01/20/2017 s/p trach and - Current Medication List Current Medications: Home Medication List Medication Instructions Recorded Confirmed Type Atorvastatin Ca [Lipitor] 40 mg PO HS 01/09/17 01/09/17 History Docusate Sodium [Colace -] 100 mg PO DAILY 01/09/17 01/09/17 History Losartan Potassium [Cozaar] 50 mg PO DAILY 01/09/17 01/09/17 History Metoprolol Succinate [Toprol Xl -] 50 mg PO DAILY 01/09/17 01/09/17 History Oxycodone HCl/Acetaminophen 1 tab PO Q6H 01/09/17 01/09/17 History [Percocet 5-325 mg Tablet] Risedronate Sodium [Actonel] 35 mg PO WEEKLY 01/09/17 01/09/17 History Warfarin Sodium 3 mg PO HS 01/09/17 01/09/17 History Active Medications Generic Name Dose Route Start Last Admin Trade Name Freq PRN Reason Stop Dose Admin Acetaminophen 1,000 mg 02/10/17 12:55 Ofirmev Injection - IVPB 02/11/17 06:56 Q6H PRN FEVER OR PAIN Morphine Sulfate 100 mg/ 100 mls @ 2 mls/hr 02/10/17 13:00 02/10/17 16:39 Sodium Chloride IVPB 2 mls/hr TITR DAVID Administration Protocol 2 MG/HR Lorazepam 1 mg 02/10/17 12:54 Ativan Injection - IVPUSH ONCE PRN AGITATION - Objective Vital Signs: Vital Signs Temperature 102.0 F H 02/10/17 08:00 Pulse Rate 108 H 02/10/17 08:00 Respiratory Rate 29 H 02/10/17 08:00 Blood Pressure 81/51 02/10/17 08:00 O2 Sat by Pulse Oximetry (%) 97 02/09/17 21:00 General: Elderly F s/p intubated , unresponsive, not responding to verbal command. HEENT: ET tube at place, MM moist, PERRLA, NECK; NO NVD, No Bruit, Carotids + CHEST: B/L equal AE CVS: S1 S2 R no m/g/r ABD: S/p surgery, colostomy beg at place, mild distention, BS+ EXT: Trace edema feet, no calf tenderness, Pulses + B[employer]: not communicative, not following command. Labs: CBC, BMP 02/10/17 06:10 02/10/17 06:10 INR, PTT INR 1.12 (0.82-1.09) 02/05/17 06:05 Problem List - Problems (1) Diverticulitis of large intestine with perforation and abscess without bleeding Assessment/Plan: Patient developed sepsis on IV abx remained septic without much improvement developed JG family decided for comfort care no active intervention Code(s): K57.20 - DVTRCLI OF LG INT W PERFORATION AND ABSCESS W/O BLEEDING (2) Respiratory failure Assessment/Plan: On comfort care Code(s): J96.90 - RESPIRATORY FAILURE, UNSP, UNSP W HYPOXIA OR HYPERCAPNIA Qualifiers: Qualified Code(s): J96.01 - Acute respiratory failure with hypoxia (3) Abdominal abscess Assessment/Plan: Confort care no active management.. Code(s): K65.1 - PERITONEAL ABSCESS (4) Acute renal failure (ARF) Assessment/Plan: Comfort care no active management Code(s): N17.9 - ACUTE KIDNEY FAILURE, UNSPECIFIED
--- NOTE | 2017-02-10 09:34 | PN ---
Progress Note, Physician - Current Medication List Current Medications: Active Medications Acetaminophen (Ofirmev Injection -) 1,000 mg IVPB Q6H PRN PRN Reason: FEVER Last Admin: 02/10/17 07:51 Dose: 1,000 mg Bacitracin (Bacitracin -) 1 applic TP BID DAVID Last Admin: 02/10/17 09:26 Dose: 1 applic Chlorhexidine Gluconate (Hibiclens For Decolonization -) 1 applic TP HS DAVID Last Admin: 02/09/17 21:49 Dose: 1 applic Collagenase (Santyl -) 1 applic TP BID DAVID Last Admin: 02/10/17 08:58 Dose: 1 applic Heparin Sodium (Porcine) (Heparin -) 1,000 unit IVPUSH PRN PRN PRN Reason: Heparin Heparin Sodium (Porcine) (Heparin -) 5,000 unit IVPUSH PRN PRN PRN Reason: Heparin Famotidine/Sodium Chloride (Pepcid 20 Mg Premixed Ivpb -) 50 mls @ 100 mls/hr IVPB BID [facility] Last Admin: 02/09/17 21:49 Dose: 100 mls/hr Fluconazole (Diflucan 200 Mg/D5w Premixed Ivpb -) 100 mls @ 100 mls/hr IVPB DAILY [facility] Last Admin: 02/09/17 08:59 Dose: 100 mls/hr Meropenem 1 gm/ Dextrose 100 mls @ 100 mls/hr IVPB BID@0500,1700 DAVID PRN Reason: Protocol Last Admin: 02/10/17 05:59 Dose: 100 mls/hr Propofol (Diprivan -) 100 mls @ 3.486 mls/hr IVPB TITR DAVID; 5 MCG/KG/MIN PRN Reason: Protocol Last Admin: 02/09/17 21:16 Dose: 3.486 mls/hr Ampicillin Sodium 2 gm/ Sodium (Chloride) 100 mls @ 200 mls/hr IVPB BID [facility] Last Admin: 02/10/17 08:57 Dose: 200 mls/hr Norepinephrine Bitartrate 8, (000 mcg/ Dextrose) 500 mls @ 15 mls/hr IV TITR DAVID; 4 MCG/MIN PRN Reason: Protocol Last Titration: 02/10/17 06:03 Dose: 6 mcg/min Metoprolol Tartrate (Lopressor Injection -) 5 mg IVPB Q8H-IV DAVID Last Admin: 02/10/17 01:34 Dose: Not Given Midodrine (Proamatine -) 5 mg PO TID-MID DAVID Last Admin: 02/09/17 14:48 Dose: 5 mg Sevelamer Carbonate (Renvela Powder Packet -) 1.6 gm NGT TIDCM DAVID Last Admin: 02/10/17 08:57 Dose: 1.6 gm - Objective Vital Signs: Vital Signs Temperature 102.0 F H 02/10/17 08:00 Pulse Rate 108 H 02/10/17 08:00 Respiratory Rate 29 H 02/10/17 08:00 Blood Pressure 81/51 02/10/17 08:00 O2 Sat by Pulse Oximetry (%) 97 02/09/17 21:00 Labs: CBC, BMP 02/10/17 06:10 02/10/17 06:10 INR, PTT INR 1.12 (0.82-1.09) 02/05/17 06:05 Problem List - Problems (1) Diverticulitis of large intestine with perforation and abscess without bleeding Code(s): K57.20 - DVTRCLI OF LG INT W PERFORATION AND ABSCESS W/O BLEEDING (2) Left ventricular systolic dysfunction Code(s): I51.9 - HEART DISEASE, UNSPECIFIED (3) Respiratory failure Code(s): J96.90 - RESPIRATORY FAILURE, UNSP, UNSP W HYPOXIA OR HYPERCAPNIA Qualifiers: Qualified Code(s): J96.01 - Acute respiratory failure with hypoxia (4) Abdominal abscess Code(s): K65.1 - PERITONEAL ABSCESS (5) Acute renal failure (ARF) Code(s): N17.9 - ACUTE KIDNEY FAILURE, UNSPECIFIED
[2017-02-10] MEDS: FLUCONAZOLE 200 MG/D5W 100 ML IVPB SCH (09:44)
[2017-02-10 10:04] VITALS: TEMP 101.6
[2017-02-10] MEDS: FAMOTIDINE 20 MG/50 ML IVPB 50 ML IVPB SCH (10:16)
--- NOTE | 2017-02-10 12:04 | PN ---
Progress Note (short form) - Note Progress Note: Renal Follow up for JG Pt seen and examined in the ICU sedated on the vent, FiO2 is 40% s/p dialysis yesterday minimal urine output without diuretics BP low this am, pt is febrile Vital Signs Temperature 101.6 F H 02/10/17 10:00 Pulse Rate 108 H 02/10/17 10:14 Respiratory Rate 25 H 02/10/17 11:52 Blood Pressure 88/64 02/10/17 10:14 O2 Sat by Pulse Oximetry (%) 97 02/10/17 09:50 Intake & Output 02/07/17 02/08/17 02/09/17 02/10/17 23:59 23:59 23:59 23:59 Intake Total 3538 2820 2629 1056.2 Output Total 1620 440 695 0 Balance 1918 2380 1934 1056.2 Weight 284 lb 3.574 oz 285 lb 285 lb 6.4 oz 289 lb 14.526 oz Gen: intubated on vent CVS: RRR Lungs: Dec BS throughout the lung dimas Abd: soft NT/ND Ext: 2+ edema upper ext and lower ext CBC, BMP 02/10/17 06:10 02/10/17 06:10 Current Medications Acetaminophen (Ofirmev Injection -) 1,000 mg IVPB Q6H PRN PRN Reason: FEVER Last Admin: 02/10/17 07:51 Dose: 1,000 mg Bacitracin (Bacitracin -) 1 applic TP BID [facility] Last Admin: 02/10/17 09:26 Dose: 1 applic Chlorhexidine Gluconate (Hibiclens For Decolonization -) 1 applic TP HS [facility] Last Admin: 02/09/17 21:49 Dose: 1 applic Collagenase (Santyl -) 1 applic TP BID [facility] Last Admin: 02/10/17 08:58 Dose: 1 applic Heparin Sodium (Porcine) (Heparin -) 1,000 unit IVPUSH PRN PRN PRN Reason: Heparin Heparin Sodium (Porcine) (Heparin -) 5,000 unit IVPUSH PRN PRN PRN Reason: Heparin Famotidine/Sodium Chloride (Pepcid 20 Mg Premixed Ivpb -) 50 mls @ 100 mls/hr IVPB BID [facility] Last Admin: 02/10/17 10:16 Dose: 100 mls/hr Fluconazole (Diflucan 200 Mg/D5w Premixed Ivpb -) 100 mls @ 100 mls/hr IVPB DAILY DAVID Last Admin: 02/10/17 09:44 Dose: 100 mls/hr Meropenem 1 gm/ Dextrose 100 mls @ 100 mls/hr IVPB BID@0500,1700 DAVID PRN Reason: Protocol Last Admin: 02/10/17 05:59 Dose: 100 mls/hr Propofol (Diprivan -) 100 mls @ 3.486 mls/hr IVPB TITR DAVID; 5 MCG/KG/MIN PRN Reason: Protocol Last Admin: 02/09/17 21:16 Dose: 3.486 mls/hr Ampicillin Sodium 2 gm/ Sodium (Chloride) 100 mls @ 200 mls/hr IVPB BID DAVID Last Admin: 02/10/17 08:57 Dose: 200 mls/hr Norepinephrine Bitartrate 8, (000 mcg/ Dextrose) 500 mls @ 15 mls/hr IV TITR DAVID; 4 MCG/MIN PRN Reason: Protocol Last Titration: 02/10/17 06:03 Dose: 6 mcg/min Metoprolol Tartrate (Lopressor Injection -) 5 mg IVPB Q8H-IV DAVID Last Admin: 02/10/17 10:14 Dose: Not Given Midodrine (Proamatine -) 5 mg PO TID-MID DAVID Last Admin: 02/09/17 14:48 Dose: 5 mg Sevelamer Carbonate (Renvela Powder Packet -) 1.6 gm NGT TIDCM DAVID Last Admin: 02/10/17 08:57 Dose: 1.6 gm A/P 81 year old woman with PMhx of CKD? (Atrophic Kidney seen on US which is a chronic finding), Diverticulosis, DVT/PE on Warfarin, Hypertension who presented with Abd pain and found to have perforated bowel with diverticulitis s /p bowel resection with colostomy with JG with Cr of 2. #Non-oliguric acute kidney failure with total body volume overload and respiratory failure s/p dialysis yesterday, no improvement in urine output without diuretics remains volume overloaded will follow up final decision by family regarding goals of care holding any further dialysis or UF for now #Sepsis/Shock/Perforated Abd viscus Continue ICU care Prognosis guarded Jair Medley DO Problem List - Problems (1) Perforated bowel Code(s): K63.1 - PERFORATION OF INTESTINE (NONTRAUMATIC) (2) Sepsis Code(s): A41.9 - SEPSIS, UNSPECIFIED ORGANISM Qualifiers: Qualified Code(s): A41.9 - Sepsis, unspecified organism (3) Acute renal failure (ARF) Code(s): N17.9 - ACUTE KIDNEY FAILURE, UNSPECIFIED (4) CKD (chronic kidney disease) Code(s): N18.9 - CHRONIC KIDNEY DISEASE, UNSPECIFIED (5) Hypertension Code(s): I10 - ESSENTIAL (PRIMARY) HYPERTENSION (6) Diverticulosis Code(s): K57.90 - DVRTCLOS OF INTEST, PART UNSP, W/O PERF OR ABSCESS W/O BLEED
[2017-02-10 12:15] VITALS: BP 87/50; PULSE 106
--- NOTE | 2017-02-10 12:16 | PN ---
Progress Note (short form) - Note Progress Note: reviewed charts, films, labs, vs and i/o's. on pressor and vent supp. febrile. on vent. sedated and intubated. CBC, BMP 02/10/17 06:10 02/10/17 06:10 Vital Signs (72 hours) 02/07/17 02/07/17 02/07/17 12:30 13:00 13:30 Temperature Pulse Rate 89 90 101 H Respiratory 22 19 21 Rate Blood Pressure 108/56 98/58 107/73 O2 Sat by Pulse Oximetry (%) 02/07/17 02/07/17 02/07/17 14:00 14:06 14:30 Temperature Pulse Rate 86 94 H Respiratory 16 16 18 Rate Blood Pressure 112/72 105/56 O2 Sat by Pulse Oximetry (%) 02/07/17 02/07/17 02/07/17 15:00 15:05 15:28 Temperature Pulse Rate 98 H 94 H 95 H Respiratory 15 19 Rate Blood Pressure 107/59 107/66 107/66 O2 Sat by Pulse Oximetry (%) 02/07/17 02/07/17 02/07/17 16:00 17:00 18:00 Temperature 98.9 F 99.8 F H Pulse Rate 94 H 98 H Respiratory 18 16 19 Rate Blood Pressure 103/64 112/66 O2 Sat by Pulse Oximetry (%) 02/07/17 02/07/17 02/07/17 18:41 19:35 19:43 Temperature 99.8 F H Pulse Rate 96 H 96 H Respiratory 15 15 Rate Blood Pressure 112/66 110/64 O2 Sat by Pulse 96 Oximetry (%) 02/07/17 02/08/17 02/08/17 22:00 00:00 00:05 Temperature 99.4 F Pulse Rate 90 90 Respiratory 14 16 18 Rate Blood Pressure 106/48 108/73 O2 Sat by Pulse Oximetry (%) 02/08/17 02/08/17 02/08/17 02:00 03:10 04:00 Temperature 100 F H 100.1 F H Pulse Rate 88 86 Respiratory 16 18 14 Rate Blood Pressure 104/70 107/62 O2 Sat by Pulse Oximetry (%) 02/08/17 02/08/17 02/08/17 05:25 06:19 07:28 Temperature 100.2 F H Pulse Rate 86 Respiratory 18 18 20 Rate Blood Pressure 108/60 O2 Sat by Pulse Oximetry (%) 02/08/17 02/08/17 02/08/17 08:19 09:00 10:00 Temperature Pulse Rate 90 94 H Respiratory 20 21 Rate Blood Pressure 112/56 O2 Sat by Pulse 96 92 L Oximetry (%) 02/08/17 02/08/17 02/08/17 10:03 10:19 11:41 Temperature 100.5 F H Pulse Rate 84 88 Respiratory 18 16 Rate Blood Pressure 96/80 96/60 O2 Sat by Pulse Oximetry (%) 02/08/17 02/08/17 02/08/17 12:00 14:04 14:16 Temperature Pulse Rate 86 88 Respiratory 18 18 15 Rate Blood Pressure 99/61 117/74 O2 Sat by Pulse Oximetry (%) 02/08/17 02/08/17 02/08/17 16:00 17:20 17:53 Temperature 101 F H Pulse Rate 92 H 100 H Respiratory 18 15 Rate Blood Pressure 105/52 O2 Sat by Pulse Oximetry (%) 02/08/17 02/08/17 02/08/17 17:57 18:00 19:02 Temperature 101.1 F H Pulse Rate 96 H 100 H Respiratory 18 14 Rate Blood Pressure 105/52 102/52 O2 Sat by Pulse Oximetry (%) 02/08/17 02/08/17 02/08/17 20:00 21:49 22:00 Temperature 101 F H 100.9 F H Pulse Rate 94 H 90 Respiratory 14 23 16 Rate Blood Pressure 107/43 100/58 O2 Sat by Pulse 94 L Oximetry (%) 02/09/17 02/09/17 02/09/17 00:00 00:38 01:00 Temperature 100.7 F H Pulse Rate 92 H Respiratory 14 14 Rate Blood Pressure 91/56 88/48 O2 Sat by Pulse Oximetry (%) 02/09/17 02/09/17 02/09/17 02:00 03:52 04:00 Temperature 100.5 F H 100.2 F H Pulse Rate 92 H 90 Respiratory 14 14 14 Rate Blood Pressure 102/55 91/53 O2 Sat by Pulse Oximetry (%) 02/09/17 02/09/17 02/09/17 06:00 06:33 08:00 Temperature 100.2 F H 100.5 F H Pulse Rate 88 93 H Respiratory 16 16 22 Rate Blood Pressure 90/56 96/61 O2 Sat by Pulse Oximetry (%) 02/09/17 02/09/17 02/09/17 09:00 09:36 09:37 Temperature Pulse Rate 89 Respiratory 20 Rate Blood Pressure O2 Sat by Pulse 99 99 99 Oximetry (%) 02/09/17 02/09/17 02/09/17 09:50 10:00 10:21 Temperature 100.3 F H 100.5 F H 100.4 F H Pulse Rate 120 H 122 H 129 H Respiratory 14 14 24 Rate Blood Pressure 90/55 100/60 112/74 O2 Sat by Pulse Oximetry (%) 02/09/17 02/09/17 02/09/17 10:30 11:00 11:14 Temperature Pulse Rate 120 H 128 H Respiratory 14 26 H 19 Rate Blood Pressure 100/60 81/59 O2 Sat by Pulse Oximetry (%) 02/09/17 02/09/17 02/09/17 11:30 11:41 12:00 Temperature 100.4 F H Pulse Rate 122 H 134 H 106 H Respiratory 24 21 Rate Blood Pressure 120/94 120/94 116/93 O2 Sat by Pulse Oximetry (%) 02/09/17 02/09/17 02/09/17 12:30 13:00 13:30 Temperature Pulse Rate 104 H 105 H 109 H Respiratory 23 22 20 Rate Blood Pressure 99/61 131/100 99/70 O2 Sat by Pulse Oximetry (%) 02/09/17 02/09/17 02/09/17 13:44 14:00 14:03 Temperature 100.4 F H Pulse Rate 100 H 113 H Respiratory 20 20 Rate Blood Pressure 113/99 113/99 O2 Sat by Pulse Oximetry (%) 02/09/17 02/09/17 02/09/17 14:07 16:00 16:35 Temperature 100.4 F H 101.1 F H Pulse Rate 113 H Respiratory 21 22 20 Rate Blood Pressure 113/99 128/77 O2 Sat by Pulse Oximetry (%) 02/09/17 02/09/17 02/09/17 18:00 19:13 19:50 Temperature 100.9 F H Pulse Rate 112 H 111 H Respiratory 24 19 Rate Blood Pressure 101/65 79/56 O2 Sat by Pulse Oximetry (%) 02/09/17 02/09/17 02/09/17 20:00 21:00 21:36 Temperature Pulse Rate 123 H Respiratory 26 H 27 H Rate Blood Pressure 110/69 O2 Sat by Pulse 97 Oximetry (%) 02/09/17 02/10/17 02/10/17 22:00 00:00 00:35 Temperature 102.2 F H 101.9 F H Pulse Rate 118 H 113 H Respiratory 21 27 H 30 H Rate Blood Pressure 102/68 89/45 O2 Sat by Pulse Oximetry (%) 02/10/17 02/10/17 02/10/17 01:34 02:00 03:22 Temperature Pulse Rate 112 H 112 H Respiratory 20 28 H Rate Blood Pressure 89/45 96/61 O2 Sat by Pulse Oximetry (%) 02/10/17 02/10/17 02/10/17 04:00 06:00 06:03 Temperature 102.1 F H Pulse Rate 102 H 110 H 117 H Respiratory 21 30 H Rate Blood Pressure 96/52 120/61 120/83 O2 Sat by Pulse Oximetry (%) 02/10/17 02/10/17 02/10/17 06:35 08:00 09:48 Temperature 102.0 F H Pulse Rate 108 H Respiratory 26 H 29 H 27 H Rate Blood Pressure 81/51 O2 Sat by Pulse Oximetry (%) 02/10/17 02/10/17 02/10/17 09:50 10:00 10:14 Temperature 101.6 F H Pulse Rate 104 H 107 H 108 H Respiratory 25 H Rate Blood Pressure 88/64 88/64 O2 Sat by Pulse 97 Oximetry (%) 02/10/17 11:52 Temperature Pulse Rate Respiratory 25 H Rate Blood Pressure O2 Sat by Pulse Oximetry (%) a/p 81 yo, f, perf diverticulitis, s/p ex lap, sigmoid resection, colostomy, c/ b sepsis, ARF, resp failure, s/p trach. remains on vent. 1. cont icu care 2. vent supp 3. family meeting per icu. ?palliative 4. f/u renal, id, surg
[2017-02-10] MEDS ORDERED: morphine CARPU-JECT 4 MG/1 ML DISP.SYRIN IVPUSH ONE (12:38)
[2017-02-10] MEDS ORDERED: LORazepam 1 MG TABLET PO PRN (12:39)
[2017-02-10] MEDS ORDERED: ACETAMINOPHEN 325 MG TABLET (FP) PO PRN (12:40)
--- NOTE | 2017-02-10 12:44 | PN ---
Teaching Attending Note Name of Resident: Pastor Puentes ATTENDING PHYSICIAN STATEMENT I saw and evaluated the patient. I reviewed the resident's note and discussed the case with the resident. I agree with the resident's findings and plan as documented. SUBJECTIVE: Pt seen and examined in the ICU. Remains intubated, poorly responsive off sedation. On levophed gtts for hemodynamic support. Persistently febrile. Family deciding on compassionate extubation. OBJECTIVE: Last Vital Signs Temp Pulse Resp BP Pulse Ox 101.6 F H 106 H 25 H 87/50 97 02/10/17 10:00 02/10/17 12:00 02/10/17 12:00 02/10/17 12:00 02/10/17 09:50 Intake & Output 02/07/17 02/08/17 02/09/17 02/10/17 23:59 23:59 23:59 23:59 Intake Total 3538 2820 2629 1056.2 Output Total 1620 440 695 0 Balance 1918 2380 1934 1056.2 Weight 284 lb 3.574 oz 285 lb 285 lb 6.4 oz 289 lb 14.526 oz Gen: intubated, poorly responsive Heart: tachycardic, irregular Lung: bilateral rhonchi Abd: soft, +ostomy with stool output, +JAMSE with purulent drainage Ext: + edema CBC, BMP 02/10/17 06:10 02/10/17 06:10 Active Medications Acetaminophen (Ofirmev Injection -) 1,000 mg IVPB Q6H PRN PRN Reason: FEVER Last Admin: 02/10/17 07:51 Dose: 1,000 mg Acetaminophen (Tylenol -) 325 mg PO Q6H PRN PRN Reason: FEVER OR PAIN Bacitracin (Bacitracin -) 1 applic TP BID [facility] Last Admin: 02/10/17 09:26 Dose: 1 applic Chlorhexidine Gluconate (Hibiclens For Decolonization -) 1 applic TP HS [facility] Last Admin: 02/09/17 21:49 Dose: 1 applic Collagenase (Santyl -) 1 applic TP BID [facility] Last Admin: 02/10/17 08:58 Dose: 1 applic Heparin Sodium (Porcine) (Heparin -) 1,000 unit IVPUSH PRN PRN PRN Reason: Heparin Heparin Sodium (Porcine) (Heparin -) 5,000 unit IVPUSH PRN PRN PRN Reason: Heparin Famotidine/Sodium Chloride (Pepcid 20 Mg Premixed Ivpb -) 50 mls @ 100 mls/hr IVPB BID [facility] Last Admin: 02/10/17 10:16 Dose: 100 mls/hr Fluconazole (Diflucan 200 Mg/D5w Premixed Ivpb -) 100 mls @ 100 mls/hr IVPB DAILY [facility] Last Admin: 02/10/17 09:44 Dose: 100 mls/hr Meropenem 1 gm/ Dextrose 100 mls @ 100 mls/hr IVPB BID@0500,1700 DAVID PRN Reason: Protocol Last Admin: 02/10/17 05:59 Dose: 100 mls/hr Propofol (Diprivan -) 100 mls @ 3.486 mls/hr IVPB TITR DAVID; 5 MCG/KG/MIN PRN Reason: Protocol Last Admin: 02/09/17 21:16 Dose: 3.486 mls/hr Ampicillin Sodium 2 gm/ Sodium (Chloride) 100 mls @ 200 mls/hr IVPB BID [facility] Last Admin: 02/10/17 08:57 Dose: 200 mls/hr Morphine Sulfate 100 mg/ (Sodium Chloride) 100 mls @ 1 mls/hr IVPB TITR DAVID; 1 MG/HR PRN Reason: Protocol Lorazepam (Ativan -) 1 mg PO ONCE PRN PRN Reason: AGITATION Metoprolol Tartrate (Lopressor Injection -) 5 mg IVPB Q8H-IV [facility] Last Admin: 02/10/17 10:14 Dose: Not Given Midodrine (Proamatine -) 5 mg PO TID-MID [facility] Last Admin: 02/09/17 14:48 Dose: 5 mg Morphine Sulfate (Morphine Injection -) 4 mg IVPUSH ONCE ONE Stop: 02/10/17 12:39 Sevelamer Carbonate (Renvela Powder Packet -) 1.6 gm NGT TIDCM [facility] Last Admin: 02/10/17 08:57 Dose: 1.6 gm ASSESSMENT AND PLAN: Acute Hypoxic Respiratory Failure Perforated Diverticulitis s/p Sigmoid Resection/Colostomy 01/09 Intra-abdominal Abscess Acute on Chronic Systolic Heart Failure Septic vs Cardiogenic Shock Acute Kidney Injury Volume Overload h/o DVT/PE Atrial Fibrillation Hyponatremia - continue antibiotics - monitor drain output - titrate levophed gtt to maintain MAP >65 - HD per renal with ultrafiltration - monitor urine output, creatinine - taper FiO2, PEEP to keep SpO2 >90% - hold anticoagulation due to drop in H/H - transfuse PRBC pending family wishes - minimize sedation - enteral feeds - DVT/GI prophylaxis - continue ICU monitoring - poor prognosis, discussed with daughter at bedside - continue discussions regarding goals of care and advanced directives - agree with compassionate extubation critical care time spent in reviewing chart, evaluating patient and formulating plan 38 min
[2017-02-10] MEDS ORDERED: MORPHINE 100 MG in SODIUM CHLORIDE 98 ML IVPB SCH ×2 (12:45→13:00)
[2017-02-10] MEDS ORDERED: LORazepam 2 MG/ML SDV VIAL IVPUSH PRN (12:54)
[2017-02-10] MEDS ORDERED: ACETAMINOPHEN 1000 MG/100 ML VIAL (NON FORMULARY) IVPB PRN (12:55)
--- NOTE | 2017-02-10 15:32 | PN ---
Progress Note, Physician History of Present Illness: continues to be critical wound still with exudate family making final decision probably becoming comfort care - Current Medication List Current Medications: Active Medications Acetaminophen (Ofirmev Injection -) 1,000 mg IVPB Q6H PRN PRN Reason: FEVER OR PAIN Stop: 02/11/17 06:56 Morphine Sulfate 100 mg/ (Sodium Chloride) 100 mls @ 2 mls/hr IVPB TITR DAVID; 2 MG/HR PRN Reason: Protocol Lorazepam (Ativan Injection -) 1 mg IVPUSH ONCE PRN PRN Reason: AGITATION - Objective Vital Signs: Vital Signs Temperature 101.6 F H 02/10/17 10:00 Pulse Rate 106 H 02/10/17 12:00 Respiratory Rate 25 H 02/10/17 12:00 Blood Pressure 87/50 02/10/17 12:00 O2 Sat by Pulse Oximetry (%) 97 02/10/17 09:50 Constitutional: Yes: Other Neck: Yes: Supple, Other Cardiovascular: Yes: Regular Rate and Rhythm, Pulse Irregular Respiratory: Yes: Mechanically Ventilated, Other Gastrointestinal: Yes: Soft, Other Musculoskeletal: Yes: Other Extremities: Yes: Other Neurological: Yes: Other Labs: CBC, BMP 02/10/17 06:10 02/10/17 06:10 INR, PTT INR 1.12 (0.82-1.09) 02/05/17 06:05 Assessment/Plan 81 y/o old with multiple medical problems with perforated bowel post op Perforated bowel Peritonitis Sepsis s/p ex-lap with sigmoid resection, colostomy Resolving JG Lactic acidosis AF h/o DVT/PE septic shock plan continue current management continue abx nutrition rest as per primary dialysis as planned monitor wbc dialysis as needed family making patient dnr probably comfort care cc tim40 min
--- NOTE | 2017-02-10 20:45 | PN ---
Progress Note (short form) - Note Progress Note: Patient is an 81 year old woman with history of CKD, diverticulosis, DVT/PE on Warfarin, HTN who initially presented with abdominal pain and found to have perforated bowel with diverticulitis s/p bowel resection with colostomy. Has had a prolonged complicated hospitalization that included respiratory failure s/ p trach, acute on chronic renal failure requiring dialysis, shock requiring pressors. Most recently goals of care discussed and decision made to make patient DNR and concentrate our efforts on comfort. This evening called to bedside for asystole. On exam patient with no cardiac or respiratory sounds, no corneal or pupillary responses. She was pronounced at 20:27PM. Family at bedside. Admitting physician, Dr. Sawyer, paged. Organ donor network to be notified. Adrianne Robb [facility]
--- NOTE | 2017-02-11 22:24 | DS ---
Physical Examination Vital Signs: Vital Signs Labs: CBC, BMP 02/10/17 06:10 02/10/17 06:10 Discharge Summary Reason For Visit: PERFORATION OF INTESTINE Condition: Fair - Instructions Referrals: Roula Sawyer MD [Primary Care Provider] - Disposition: - Home Medications Comprehensive Discharge Medication List: Ambulatory Orders Atorvastatin Ca [Lipitor] 40 mg PO HS 01/09/17 Docusate Sodium [Colace -] 100 mg PO DAILY 01/09/17 Losartan Potassium [Cozaar] 50 mg PO DAILY 01/09/17 Metoprolol Succinate [Toprol Xl -] 50 mg PO DAILY 01/09/17 Oxycodone HCl/Acetaminophen [Percocet 5-325 mg Tablet] 1 tab PO Q6H 01/09/17 Risedronate Sodium [Actonel] 35 mg PO WEEKLY 01/09/17 Warfarin Sodium 3 mg PO HS 01/09/17
== END 2017-02-10 22:00 | disposition expired | DRG 3 ==
LOC: JER 12:22 → JERBED 17:28 → JICU 23:22
PROVIDERS: ADMIT Internal Medicine; ATTEND Internal Medicine
PROC: 0DBN0ZZ Excision of Sigmoid Colon, Open Approach (ICD-10-PCS; 2017-01-09)
PROC: 0D1L0Z4 Bypass Transverse Colon to Cutaneous, Open Approach (ICD-10-PCS; 2017-01-09)
PROC: 0DNL0ZZ Release Transverse Colon, Open Approach (ICD-10-PCS; 2017-01-09)
PROC: 0WJJ0ZZ Inspection of Pelvic Cavity, Open Approach (ICD-10-PCS; 2017-01-09)
PROC: 30233K1 Transfusion of Nonautologous Frozen Plasma into Peripheral Vein, Percutaneous Approach (ICD-10-PCS; 2017-01-09)
PROC: 30233L1 Transfusion of Nonautologous Fresh Plasma into Peripheral Vein, Percutaneous Approach (ICD-10-PCS; 2017-01-09)
PROC: 0B113F4 Bypass Trachea to Cutaneous with Tracheostomy Device, Percutaneous Approach (ICD-10-PCS; 2017-01-09)
PROC: 5A1945Z Respiratory Ventilation, 24-96 Consecutive Hours (ICD-10-PCS; 2017-01-09)
PROC: 0BH17EZ Insertion of Endotracheal Airway into Trachea, Via Natural or Artificial Opening (ICD-10-PCS; 2017-01-09)
PROC: 4A143B0 Monitoring of Venous Pressure, Central, Percutaneous Approach (ICD-10-PCS; 2017-01-12)
PROC: 5A09557 Assistance with Respiratory Ventilation, Greater than 96 Consecutive Hours, Continuous Positive Airway Pressure (ICD-10-PCS; 2017-01-14)
PROC: 0W9G30Z Drainage of Peritoneal Cavity with Drainage Device, Percutaneous Approach (ICD-10-PCS; 2017-01-19)
PROC: 5A1955Z Respiratory Ventilation, Greater than 96 Consecutive Hours (ICD-10-PCS; 2017-01-20)
PROC: 0BH17EZ Insertion of Endotracheal Airway into Trachea, Via Natural or Artificial Opening (ICD-10-PCS; 2017-01-20)
PROC: 0JB80ZZ Excision of Abdomen Subcutaneous Tissue and Fascia, Open Approach (ICD-10-PCS; 2017-02-05)
PROC: 3E1F88Z Irrigation of Respiratory Tract using Irrigating Substance, Via Natural or Artificial Opening Endoscopic (ICD-10-PCS; 2017-02-05)
PROC: 5A1D60Z (ICD-10-PCS; 2017-02-05)
PROC: 0B113F4 Bypass Trachea to Cutaneous with Tracheostomy Device, Percutaneous Approach (ICD-10-PCS; principal; 2017-02-05 11:30)
PROC: 05HN33Z Insertion of Infusion Device into Left Internal Jugular Vein, Percutaneous Approach (ICD-10-PCS; 2017-02-06)
DX: A41.9 Sepsis, unspecified organism (principal); I21.4 Non-ST elevation (NSTEMI) myocardial infarction; R65.21 Severe sepsis with septic shock; J95.821 Acute postprocedural respiratory failure; I50.23 Acute on chronic systolic (congestive) heart failure; J96.01 Acute respiratory failure with hypoxia; K57.20 Diverticulitis of large intestine with perforation and abscess without bleeding; N17.9 Acute kidney failure, unspecified; T81.4XXA Infection following a procedure, initial encounter; E87.2 Acidosis; E87.0 Hyperosmolality and hypernatremia; Z68.42 Body mass index [BMI] 45.0-49.9, adult; I13.0 Hypertensive heart and chronic kidney disease with heart failure and stage 1 through stage 4 chronic kidney disease, or unspecified chronic kidney disease; B96.29 Other Escherichia coli [E. coli] as the cause of diseases classified elsewhere; Y83.8 Other surgical procedures as the cause of abnormal reaction of the patient, or of later complication, without mention of misadventure at the time of the procedure; Y81.8 Miscellaneous general- and plastic-surgery devices associated with adverse incidents, not elsewhere classified; Z66 Do not resuscitate; N18.9 Chronic kidney disease, unspecified; E87.6 Hypokalemia; E86.1 Hypovolemia; E83.39 Other disorders of phosphorus metabolism; E66.01 Morbid (severe) obesity due to excess calories; I95.9 Hypotension, unspecified; I48.91 Unspecified atrial fibrillation; D53.9 Nutritional anemia, unspecified; E78.00 Pure hypercholesterolemia, unspecified; Z86.711 Personal history of pulmonary embolism; Z87.891 Personal history of nicotine dependence; Z86.718 Personal history of other venous thrombosis and embolism; Z79.01 Long term (current) use of anticoagulants; Z90.81 Acquired absence of spleen
CPT/HCPCS: 31500; 36415; 36430; 36600; 49406; 71010-TC; 74000-TC; 74176-TC; 74177-TC; 75984-TC; 76098-TC; 76775-TC; 77012-TC; 80048; 80053; 81003; 81015; 82272; 82570; 82607; 82746; 82803; 83605; 83735; 83880; 84100; 84156; 84300; 84484; 84540; 85025; 85027; 85610; 85730; 86704; 86706; 86708; 86803; 86850; 86870; 86880; 86900; 86901; 86902; 86922; 87040; 87070; 87075; 87077; 87086; 87186; 87205; 87324; 87340; 87449; 87899; 88307-TC; 93005; 93010; 93306-TC; 94002; 94640; 94660; 94760; 99283-25; C1729; C1769; J1250; J1644; P9017; P9038; P9058; Q9967